=== PATIENT | male | born 2000 | race Caucasian/White ===

== ENCOUNTER → 2020-08-23 00:35 | Outpatient (CLI) | payer OTHER, SELFPAY ==
[2020-08-23 18:30] LABS: SARS-CoV-2 RNA PCR Positive
== END ==
PROVIDERS: PCP Family Medicine; Visit Provider Family Medicine
DX: U07.1 COVID-19 (principal)
CPT/HCPCS: C9803; U0003; U0005

== ENCOUNTER 2020-09-24 06:00 | Emergency (ER) | payer OTHER, SELFPAY ==
[2020-09-24 06:04] VITALS: BP 140/112; PULSE 98; RESP 20; TEMP 36.2; O2SAT 96
[2020-09-24 06:36] LABS: Basophils Absolute Auto 0.1 K/mm3 (0.0-0.1); Basophils Percent Auto 0.6 % (0.2-1.2); Eosinophils Absolute Auto 0.2 K/mm3 (0-0.3); Hematocrit 49.1 % (42.0-52.0); Hemoglobin 16.8 g/dL (14.0-18.0); Immature Granulocyte Absolute 0.04 K/mm3 (0.00-0.031); Immature Granulocyte Percent A 0.4 % (0-0.5); Lymphocytes Absolute Auto 3.38 K/mm3 (0.9-3.2); Lymphocytes Percent Auto 37.9 % (18.3-44.2); Mean Corpuscular HGB Conc 34.2 g/dl (32-36); Mean Corpuscular Hemoglobin 27.7 pg (26-34); Mean Corpuscular Volume 80.9 fl (80-100); Mean Platelet Volume 10.8 fl (7.4-10.4); Monocytes Absolute Auto 0.7 K/mm3 (0.1-0.6); Monocytes Percent Auto 8.3 % (2.6-8.5); Neutrophils Absolute Auto 4.5 K/mm3 (1.3-6.7); Neutrophils Percent Auto 50.8 % (45.5-73.1); Platelet Count Result 202 k/mm3 (150-375); Red Blood Count 6.07 M/mm3 (4.6-6.20); Red Cell Distribution Width 13.4 % (11.5-14.5); White Blood Count 8.9 K/mm3 (4.5-10.0)
[2020-09-24] MEDS: SODIUM CHLORIDE 0.9% IV 1,000 ML 999 ML IV CONT (06:40)
[2020-09-24] MEDS: ONDANSETRON INJ 4 MG/2 ML VIAL IV PUSH (06:40)
[2020-09-24 06:43] LABS: Lipase 54 U/L (23-300)
[2020-09-24 06:44] LABS: Alanine Aminotransferase 32 U/L (4-50); Albumin Level 4.5 g/dL (3.5-5.1); Alkaline Phosphatase 85 U/L (38-126); Anion Gap 8 mmol/L (8-16); Aspartate Amino Transferase 29 U/L (17-59); Bilirubin,Total 1.6 mg/dL (0.2-1.3); Blood Urea Nitrogen 15 mg/dL (9-20); Calcium 9.3 mg/dL (8.4-10.2); Carbon Dioxide 27 mmol/L (22-30); Chloride 103 mmol/L (98-107); Estimated CRCL calculation 178 ml/min; Estimated Glomerular Filt Rate > 60; Glucose 105 mg/dL (75-110); Potassium 3.8 mmol/L (3.4-5.0); Sodium 138 mmol/L (137-145)
--- NOTE | 2020-09-24 07:14 | ECG_ITS ---
Measurements Intervals [place] Rate: 63 P: 51 MT: 134 QRS: 76 QRSD: 117 T: 40 QT: 380 QTc: 389 Interpretive Statements SINUS RHYTHM WITH SINUS ARRHYTHMIA INCOMPLETE RIGHT BUNDLE BRANCH BLOCK BORDERLINE ECG Electronically Signed On 09-24-2020 8:48:27 CDT by Nile Robertson D.O.
--- NOTE | 2020-09-24 07:23 | ED.NAVMDI ---
HPI - Nausea/Vomiting/Diarrhea General Chief complaint: Nausea/Vomiting/Diarrhea Stated complaint: n/v Time Seen by Provider: 09/24/20 07:03 Source: patient and RN notes reviewed Mode of arrival: ambulatory Limitations: no limitations History of Present Illness HPI Narrative: This is a a 20 year old male with history of cannabinoid hyperemesis syndrome who presents for evaluation of nausea and vomiting. He states that he started smoking marijuana again 3 weeks ago to deal with his body pain from COVID. He started having nausea and vomiting for the past 3 days. He smokes multiple times a day every day. HE denies abdominal pain, sob , chest pain, diarrhea or fever. MD elicited complaint: nausea and vomiting Related Data Allergies Allergy/AdvReac Type Severity Reaction Status Date / Time No Known Allergies Allergy Verified 09/24/20 06:40 Review of Systems Review of Systems: All systems reviewed & are unremarkable except as noted in HPI and below PMFSH Past Medical History Medical History (Updated 09/24/20 @ 08:16 by Chata Shane MD) Cannabinoid hyperemesis syndrome Surgical History Surgical History (Updated 09/24/20 @ 07:25 by Chata Shane MD) No pertinent past surgical history Social History Social History (Updated 09/24/20 @ 07:25 by Chata Shane MD) Alcohol intake: never Substance use: current Substance use type: marijuana Exam Const: General: alert Nutritional Appearance: obese Orientation/consciousness: patient oriented x3 HENMT: Head: normocephalic and atraumatic Face and sinus: face symmetric Throat: posterior oropharynx normal, tonsils normal and uvula midline Eyes: EOM: EOMs intact bilaterally Resp: Effort & Inspection: normal respiratory effort and no retractions Auscultation: clear to auscultation bilaterally Cardio: Rate: regular rate Rhythm: regular rhythm Heart sounds: no murmurs GI: GI Palp: Yes Soft to palpation, No Tenderness to palpation present (GI) and No Guarding due to palpation present (GI) Auscultation: normal bowel sounds Skin: General skin exam: normal color Rashes: no rashes Neuro: General: patient oriented x3, moves all extremities and CN's II-XI intact bilaterally Psych: Mental Status: mental status grossly normal Affect: normal affect Course Reevaluation(s) Reevaluation #1: Patient is still having nausea and vomiting mucous. He had nurse to take IV out already. I discussed that I was going to order more medication and ask if he would stay for more medicine since he is still vomiting. HE states he wants to go home, and he already has his ride on the way. Labs are stable. He has no abdominal pain or tenderness Date: 09/24/20 Time: 08:13 Vital Signs Vital signs: Vital Signs Temperature 97.2 F L 09/24/20 06:04 Pulse Rate 98 09/24/20 06:04 Respiratory Rate 20 09/24/20 06:04 Blood Pressure 140/112 H 09/24/20 06:04 Pulse Oximetry 96 09/24/20 06:04 Temperature 97.2 F L 09/24/20 06:04 Pulse Rate 98 09/24/20 06:04 Respiratory Rate 20 09/24/20 06:04 Blood Pressure 140/112 H 09/24/20 06:04 Pulse Oximetry 96 09/24/20 06:04 MDM - Nausea/Vomiting/Diarrhea Lab Data Attestation: I reviewed the patient's lab results. Result diagrams: 09/24/20 06:27 09/24/20 06:27 Labs: Lab Results 09/24/20 09/24/20 09/24/20 Range/Units 06:27 06:27 06:27 WBC 8.9 (4.5-10.0) K/mm3 RBC 6.07 (4.6-6.20) M/mm3 Hgb 16.8 (14.0-18.0) g/dL Hct 49.1 (42.0-52.0) % MCV 80.9 (80-100) fl MCH 27.7 (26-34) pg MCHC 34.2 (32-36) g/dl RDW 13.4 (11.5-14.5) % Plt Count 202 (150-375) k/mm3 MPV 10.8 H (7.4-10.4) fl Immature Gran % (Auto) 0.4 (0-0.5) % Neut % (Auto) 50.8 (45.5-73.1) % Lymph % (Auto) 37.9 (18.3-44.2) % [place] % (Auto) 8.3 (2.6-8.5) % Eos % (Auto) 2.0 (0-4.4) % Baso % (Auto) 0.6 (0.2-1.2) % Lymph # (Aut
--- NOTE | 2020-09-24 07:25 | PC.NURSE ---
Pt sitting up on cart, rocking back and forth holding stomach, states medication has not worked and still c/o N/V. States he was in rehab for a while for marijuana use and started again. Call light within reach
[2020-09-24] MEDS: LACTATED RINGERS 1,000 ML 999 ML IV CONT (07:30)
[2020-09-24] MEDS: HALOPERIDOL LACTATE 5 MG/ML VIAL IM (07:30)
--- NOTE | 2020-09-24 08:20 | PC.NURSE ---
AMA paper signed by pt and witnessed by this RN, pt ambulatory steady gait, states his ride is here to pick him up
== END 2020-09-24 08:20 | disposition left against medical advice (07) ==
PROVIDERS: Emergency Medicine; Emergency Provider General Practice; PCP Family Medicine
DX: R11.2 Nausea with vomiting, unspecified (principal); Z86.16 Personal history of COVID-19; I45.10 Unspecified right bundle-branch block; F12.90 Cannabis use, unspecified, uncomplicated
CPT/HCPCS: 36415; 80053; 83690; 85025; 93005; 96361; 96372; 96374; 99284; J1630; J2405; J7030; J7120

== ENCOUNTER 2021-07-10 09:25 | Emergency (ER) | payer OTHER, SELFPAY ==
[2021-07-10 09:39] VITALS: BP 144/86; PULSE 73; RESP 14; TEMP 36.8; O2SAT 99
[2021-07-10 09:47] LABS: Basophils Absolute Auto 0.1 K/mm3 (0.0-0.1); Basophils Percent Auto 0.4 % (0.2-1.2); Eosinophils Percent Auto 0.1 % (0-4.4); Hematocrit 48.9 % (42.0-52.0); Hemoglobin 16.4 g/dL (14.0-18.0); Immature Granulocyte Absolute 0.05 K/mm3 (0.00-0.031); Immature Granulocyte Percent A 0.4 % (0-0.5); Lymphocytes Absolute Auto 2.76 K/mm3 (0.9-3.2); Lymphocytes Percent Auto 19.4 % (18.3-44.2); Mean Corpuscular HGB Conc 33.5 g/dl (32-36); Mean Corpuscular Hemoglobin 27.9 pg (26-34); Mean Corpuscular Volume 83.3 fl (80-100); Monocytes Absolute Auto 0.9 K/mm3 (0.1-0.6); Neutrophils Absolute Auto 10.5 K/mm3 (1.3-6.7); Neutrophils Percent Auto 73.7 % (45.5-73.1); Platelet Count Result 317 k/mm3 (150-375); Red Blood Count 5.87 M/mm3 (4.6-6.20); Red Cell Distribution Width 12.7 % (11.5-14.5); White Blood Count 14.3 K/mm3 (4.5-10.0)
[2021-07-10 09:57] LABS: Alanine Aminotransferase 39 U/L (4-50); Albumin Level 4.9 g/dL (3.5-5.1); Alkaline Phosphatase 103 U/L (38-126); Anion Gap 10 mmol/L (8-16); Aspartate Amino Transferase 40 U/L (17-59); Bilirubin,Total 1.3 mg/dL (0.2-1.3); Blood Urea Nitrogen 21 mg/dL (9-20); Calcium 9.8 mg/dL (8.4-10.2); Carbon Dioxide 27 mmol/L (22-30); Chloride 102 mmol/L (98-107); Estimated CRCL calculation 140 ml/min; Estimated Glomerular Filt Rate > 60; Glucose 133 mg/dL (65-110); Lipase 35 U/L (23-300); Potassium 3.9 mmol/L (3.4-5.0); Sodium 139 mmol/L (137-145)
[2021-07-10] MEDS: LORazepam INJ (*CRX) 2 MG/ML VIAL 1 MG IV PUSH (10:05)
[2021-07-10] MEDS: LACTATED RINGERS 1,000 ML 999 ML IV CONT (10:05)
[2021-07-10] MEDS: METOCLOPRAMIDE HCL INJ 10 MG/2 ML VIAL IV PUSH (10:07)
[2021-07-10] MEDS: diphenhydrAMINE HCl INJ 50 MG/ML VIAL 25 MG IV PUSH (10:34)
[2021-07-10 11:04] VITALS: BP 132/91; PULSE 80; RESP 14; O2SAT 97
--- NOTE | 2021-07-10 11:22 | ED.GENADULT ---
HPI - General Adult General Chief complaint: Nausea/Vomiting/Diarrhea Stated complaint: N/V 24hr Time Seen by Provider: 07/10/21 09:31 Source: patient and RN notes reviewed Mode of arrival: ambulatory Limitations: no limitations History of Present Illness HPI narrative: Patient is a 21-year-old male who presents with nausea and vomiting over the course of the last 3 days patient notes he has smoked marijuana has a history of hyperemesis related to marijuana use he also notes he has been under increasing stress patient denies any change in bowel habits rectal bleeding or melena denies hematemesis has not taken anything for his symptoms has had similar occurrences in the past and notes that this is similar to what he had experienced in the past Related Data Allergies Allergy/AdvReac Type Severity Reaction Status Date / Time No Known Allergies Allergy Verified 07/10/21 09:52 Review of Systems Review of Systems: All systems reviewed & are unremarkable except as noted in HPI and below PMFSH Past Medical History Medical History Cannabinoid hyperemesis syndrome Surgical History Surgical History No pertinent past surgical history Social History Social History Alcohol intake: never Substance use: current Substance use type: marijuana Exam Narrative: GENERAL: Well-appearing, well-nourished, uncomfortable appearing, and in no acute distress. HEAD: Normocephalic, atraumatic. EYES: PERRLA and EOMI. ENT: Nares clear, no rhinorrhea or epistaxis. Mucous membranes moist. NECK: Supple. No adenopathy or masses. CHEST: Clear to auscultation. No respiratory distress. No wheezes rales or rhonchi HEART: Regular rate and rhythm. No murmur heard. Normal peripheral pulses. ABDOMEN: Soft, tenderness of the abdomen that is generalized there is no rebound or guarding, nondistended EXTREMITIES: Normal range of motion. No edema. SKIN: Warm, dry, no rash. NEURO: No focal deficits. Alert and oriented x3. PSYCH: Normal mood and affect. Course Course Emergency Course: Patient presents to emergency department with hyperemesis GI discomfort he was medicated feeling much better at this time repeat exams of the abdomen are nontender he feels comfortable for discharge home he is hemodynamically stable ABCs and vital signs intact and stable leukocytosis likely attributed to stress reaction he is afebrile without emesis and feels comfortable with discharge home with outpatient follow-up with his Vital Signs Vital signs: Vital Signs Temperature 98.3 F 07/10/21 09:39 Pulse Rate 73 07/10/21 09:39 Respiratory Rate 14 07/10/21 09:39 Blood Pressure 144/86 H 07/10/21 09:39 Pulse Oximetry 99 07/10/21 09:39 Temperature 98.3 F 07/10/21 09:39 Pulse Rate 80 07/10/21 11:04 Respiratory Rate 14 07/10/21 11:04 Blood Pressure 132/91 H 07/10/21 11:04 Pulse Oximetry 97 07/10/21 11:04 Medical Decision Making MDM Narrative Medical decision making narrative: Patient with symptoms likely consistent with hyperemesis secondary to marijuana use and stress he had improvement with medications and therapies feels comfortable with discharge home given reason for return afebrile nontoxic appearing nondistressed no sign or symptoms to suggest it is cardiopulmonary related he has no urinary symptoms he denies any relationship to food has not had any diarrhea or constipation. Patient felt appropriate for outpatient reevaluation with gastroenterology Vital Signs Vital Signs: Vital Signs Temperature 98.3 F 07/10/21 09:39 Pulse Rate 73 07/10/21 09:39 Respiratory Rate 14 07/10/21 09:39 Blood Pressure 144/86 H 07/10/21 09:39 Pulse Oximetry 99 07/10/21 09:39 Temperature 98.3 F 07/10/21 09:39 Pulse Rate 80 07/10/21 11:04 Respiratory Rate
--- NOTE | 2021-07-10 12:53 | PC.NURSE ---
Patient refused discharge vital signs .
== END 2021-07-10 12:57 | disposition home or self-care (01) ==
PROVIDERS: Emergency Provider Emergency Medicine; PCP Family Medicine
DX: R10.9 Unspecified abdominal pain (principal)
CPT/HCPCS: 36415; 80053; 83690; 85025; 96361; 96374; 96375; 99284; J1200; J2060; J2765; J7120

== ENCOUNTER 2021-09-23 19:59 | Emergency (ER) | payer OTHER, SELFPAY ==
[2021-09-23 20:08] VITALS: BP 151/75; PULSE 106; RESP 16; TEMP 36.8; O2SAT 98
[2021-09-23 20:32] LABS: Alanine Aminotransferase 27 U/L (4-50); Albumin Level 4.6 g/dL (3.5-5.1); Alkaline Phosphatase 95 U/L (38-126); Anion Gap 9 mmol/L (8-16); Aspartate Amino Transferase 31 U/L (17-59); Blood Urea Nitrogen 18 mg/dL (9-20); Calcium 9.3 mg/dL (8.4-10.2); Carbon Dioxide 27 mmol/L (22-30); Chloride 102 mmol/L (98-107); Estimated CRCL calculation 206 ml/min; Estimated Glomerular Filt Rate > 60; Glucose 112 mg/dL (65-110); Lipase 44 U/L (23-300); Potassium 3.6 mmol/L (3.4-5.0); Sodium 138 mmol/L (137-145)
--- NOTE | 2021-09-23 21:10 | ED.NAVMDI ---
HPI - Nausea/Vomiting/Diarrhea General Chief complaint: Nausea/Vomiting/Diarrhea Stated complaint: nausea vomitting Time Seen by Provider: 09/23/21 20:39 Source: patient History of Present Illness HPI Narrative: Patient presents with nausea and vomiting for the past 2 days. Reports his symptoms are not getting better is having hard time keeping anything down so he came to ER for evaluation. Ports some epigastric pain that is associated with his emesis denies any diarrhea or fevers denies any known sick contacts recent antibiotic. Frequent history of recurrent hyperemesis syndrome but is drastically cut back on his use. Denies any bloody emesis Related Data Allergies Allergy/AdvReac Type Severity Reaction Status Date / Time No Known Allergies Allergy Verified 09/24/21 08:11 Review of Systems Review of Systems: CONSTITUTIONAL: Denies fever, chills, or sweats. EYES: Denies visual changes, redness, or discharge. ENT: Denies rhinorrhea, congestion, sore throat, or otalgia. CARDIOVASCULAR: Denies chest pain, palpitations, or edema. RESPIRATORY: Denies cough or dyspnea. GASTROINTESTINAL: Reports nausea vomiting abdominal pain GENITOURINARY: Denies dysuria or hematuria. SKIN: Denies rash or itching. MUSCULOSKELETAL: Denies back pain, joint pain, or myalgia. NEUROLOGIC: Denies headache, numbness, dizziness, or weakness. PSYCHIATRIC: Denies anxiety or depression. All systems reviewed & are unremarkable except as noted in HPI and below PMFSH Past Medical History Medical History Cannabinoid hyperemesis syndrome Surgical History Surgical History No pertinent past surgical history Social History Social History Alcohol intake: never Substance use: current Substance use type: marijuana Exam Narrative: GENERAL: Well-appearing, well-nourished, and in no acute distress. HEAD: Normocephalic, atraumatic. EYES: PERRLA and EOMI. ENT: Nares clear, no rhinorrhea or epistaxis. Mucous membranes moist. NECK: Supple. No masses. No JVD ABDOMEN: Minimal pain with deep palpation epigastric area soft, nondistended EXTREMITIES: Normal range of motion. No edema. SKIN: Warm, dry, no rash. NEURO: No focal deficits. Alert and oriented x3. PSYCH: Normal mood and affect. Course Reevaluation(s) Reevaluation #1: Patient reports feeling improved results and plan with patient. Patient is comfortable outpatient plan. Date: 09/23/21 Time: 21:51 Vital Signs Vital signs: Vital Signs Temperature 36.8 C 09/23/21 20:08 Pulse Rate 106 H 09/23/21 20:08 Respiratory Rate 16 09/23/21 20:08 Blood Pressure 151/75 H 09/23/21 20:08 Pulse Oximetry 98 09/23/21 20:08 Temperature 36.8 C 09/23/21 20:08 Pulse Rate 73 09/23/21 22:00 Respiratory Rate 14 09/23/21 22:00 Blood Pressure 121/73 09/23/21 22:00 Pulse Oximetry 99 09/23/21 22:00 MDM - Nausea/Vomiting/Diarrhea MDM Narrative Medical decision making narrative: H&P as above, vss, pt looks clinically well, exam with nonacute abdomen, labs with leukocytosis otherwise clinically unremarkable, additional labs/img considered, symptomatic relief available as needed, on reevaluation pt continues to looks clinically well. Suspect viral process, dns severe sepsis, severe dehydration, appendicitis, bowel obstruction, perforation. plan to tx/monitor as op w/ pcm f/u findings/plan discussed with pt, pt agree/comfortable with plan, return precautions given Lab Data Result diagrams: 09/23/21 21:11 09/23/21 20:17 Labs: Lab Results 09/23/21 09/23/21 09/23/21 Range/Units 20:17 21:11 21:16 WBC 15.3 H (4.5-10.0) K/mm3 RBC 5.47 (4.6-6.20) M/mm3 Hgb 15.3 (14.0-18.0) g/dL Hct 45.7 (42.0-52.0) % MCV 83.5 (80-100) fl MCH 28.0 (26-34) pg MCHC 33.5 (32-36) g/dl
[2021-09-23] MEDS: SODIUM CHLORIDE 0.9% IV 1,000 ML 999 ML IV CONT (21:11)
[2021-09-23] MEDS: ONDANSETRON INJ 4 MG/2 ML VIAL IV PUSH (21:11)
--- NOTE | 2021-09-23 21:14 | PC.NURSE ---
Pt ambulated to bathroom with steady gait
[2021-09-23 21:16] VITALS: BP 128/77; PULSE 71; RESP 16; O2SAT 98
[2021-09-23 21:16] LABS: Basophils Percent Auto 0.3 % (0.2-1.2); Eosinophils Percent Auto 0.1 % (0-4.4); Hematocrit 45.7 % (42.0-52.0); Hemoglobin 15.3 g/dL (14.0-18.0); Immature Granulocyte Absolute 0.05 K/mm3 (0.00-0.031); Immature Granulocyte Percent A 0.3 % (0-0.5); Lymphocytes Absolute Auto 2.83 K/mm3 (0.9-3.2); Lymphocytes Percent Auto 18.5 % (18.3-44.2); Mean Corpuscular HGB Conc 33.5 g/dl (32-36); Mean Corpuscular Volume 83.5 fl (80-100); Mean Platelet Volume 10.7 fl (7.4-10.4); Monocytes Absolute Auto 1.3 K/mm3 (0.1-0.6); Monocytes Percent Auto 8.2 % (2.6-8.5); Neutrophils Absolute Auto 11.1 K/mm3 (1.3-6.7); Neutrophils Percent Auto 72.6 % (45.5-73.1); Platelet Count Result 285 k/mm3 (150-375); Red Blood Count 5.47 M/mm3 (4.6-6.20); White Blood Count 15.3 K/mm3 (4.5-10.0)
[2021-09-23 21:29] LABS: Add Urine Microscopic? YES; Appearance Urine Clear (Clear); Bilirubin Urine Negative (Negative); Blood Urine 1+ (Negative); Color Urine Yellow (Yellow); Glucose Urine UA Negative (Negative); Ketones Urine Trace mg/dL (Negative); Leukocyte Esterase Ur Negative LEU/UL (Negative); Mucus Urine Few /lpf; Nitrate Urine Negative (Negative); Protein Urine Negative (Negative); RBC Urine 0-2 /hpf (0-2); Specific Grav Ur 1.027 (1.001-1.035); Squamous Epithelial Cell Urine Rare /hpf (Few); Urobilinogen Urine Negative mg/dL (<2.0); WBC Urine 0-3 /hpf
[2021-09-23 21:43] VITALS: BP 132/65; PULSE 56
[2021-09-23 21:44] VITALS: BP 120/81; PULSE 71
[2021-09-23 21:46] VITALS: BP 121/76; PULSE 73
[2021-09-23 22:00] VITALS: BP 121/73; PULSE 73; RESP 14; O2SAT 99
== END 2021-09-23 22:00 | disposition home or self-care (01) ==
PROVIDERS: Emergency Provider Emergency Medicine; PCP Family Medicine
DX: R11.2 Nausea with vomiting, unspecified (principal)
CPT/HCPCS: 36415; 80053; 81001; 83690; 85025; 96361; 96374; 99284; J2405; J7030

== ENCOUNTER 2021-09-24 08:01 | Emergency (ER) | payer OTHER, SELFPAY ==
[2021-09-24 08:08] VITALS: BP 152/118; PULSE 98; RESP 18; TEMP 36.5; O2SAT 98
[2021-09-24 08:21] VITALS: BP 119/92; PULSE 79; RESP 20; O2SAT 98
[2021-09-24] MEDS: SODIUM CHLORIDE 0.9% IV 1,000 ML 999 ML IV CONT (08:33)
[2021-09-24] MEDS: ONDANSETRON INJ 4 MG/2 ML VIAL IV PUSH (08:34)
--- NOTE | 2021-09-24 09:31 | ED.GENADULT ---
HPI - General Adult General Chief complaint: Nausea/Vomiting/Diarrhea Stated complaint: Vomiting, Seen Yesterday Time Seen by Provider: 09/24/21 08:42 Source: patient, RN notes reviewed and old records reviewed Mode of arrival: ambulatory Limitations: no limitations History of Present Illness HPI narrative: 21-year-old male returned to the emergency department for evaluation of persistent epigastric pain with associated nausea and vomiting. Patient was evaluated in the emergency department last night and had a normal work-up including labs. Patient did feel improved with treatment in the ED. Patient was prescribed Zofran for home. Patient has not yet had the opportunity to fill that medication. Patient states when he woke up he was having persistent nausea and proceeded to the emerge for evaluation. Patient does report some epigastric pain. Patient states that he had used THC almost daily but states he has decreased his use. Patient states for the last 5 days he has had no THC use. Denies any previous abdominal surgical history. Related Data Allergies Allergy/AdvReac Type Severity Reaction Status Date / Time No Known Allergies Allergy Verified 09/24/21 08:11 Review of Systems Review of Systems: CONSTITUTIONAL: Denies fever, chills, or sweats. EYES: Denies visual changes, redness, or discharge. ENT: Denies rhinorrhea, congestion, sore throat, or otalgia. CARDIOVASCULAR: Denies chest pain, palpitations, or edema. RESPIRATORY: Denies cough or dyspnea. GASTROINTESTINAL: See HPI GENITOURINARY: Denies dysuria or hematuria. SKIN: Denies rash or itching. MUSCULOSKELETAL: Denies back pain, joint pain, or myalgia. NEUROLOGIC: Denies headache, numbness, or weakness. PMFSH Past Medical History Medical History Cannabinoid hyperemesis syndrome Surgical History Surgical History No pertinent past surgical history Social History Social History Alcohol intake: never Substance use: current Substance use type: marijuana Exam Narrative: APPEARANCE: Well appearing, no pain, no distress, well-nourished. HEAD: normocephalic, atraumatic. EYES: PERRLA/EOMI, conjunctivae clear. NECK: Supple. No adenopathy, no masses. RESPIRATORY: Airway patent, respirations nonlabored. Clear to auscultation bilaterally, no rales, rhonchi, wheezing. CARDIOVASCULAR: Regular rate and rhythm without murmurs rubs or gallops. ABDOMINAL: Soft nondistended normal bowel sounds. Some epigastric tenderness to palpation. No rebound or guarding. Benign nonsurgical abdomen. MUSCULOSKELETAL: Moves all extremities. Strength/ROM intact, No edema, No calf tenderness. NEURO: Alert. Cranial nerves II through XII intact. Grossly intact SKIN: Warm, dry. Normal Color Course Course Emergency Course: Patient felt improved with treatment. Patient was updated on the results of his labs. Vital Signs Vital signs: Vital Signs Temperature 97.7 F 09/24/21 08:08 Pulse Rate 98 09/24/21 08:08 Respiratory Rate 18 09/24/21 08:08 Blood Pressure 152/118 H 09/24/21 08:08 Pulse Oximetry 98 09/24/21 08:08 Temperature 97.7 F 09/24/21 08:08 Pulse Rate 82 09/24/21 10:20 Respiratory Rate 14 09/24/21 10:20 Blood Pressure 122/89 09/24/21 10:20 Pulse Oximetry 99 09/24/21 10:20 Medical Decision Making Vital Signs Vital Signs: Vital Signs Temperature 97.7 F 09/24/21 08:08 Pulse Rate 98 09/24/21 08:08 Respiratory Rate 18 09/24/21 08:08 Blood Pressure 152/118 H 09/24/21 08:08 Pulse Oximetry 98 09/24/21 08:08 Temperature 97.7 F 09/24/21 08:08 Pulse Rate 82 09/24/21 10:20 Respiratory Rate 14 09/24/21 10:20 Blood Pressure 122/89 09/24/21 10:20 Pulse Oximetry 99 09/24/21 10:20 Lab Data Lab results reviewed: Yes I reviewed the patient's lab results.
[2021-09-24] MEDS: METOCLOPRAMIDE HCL INJ 10 MG/2 ML VIAL IV PUSH (09:44)
[2021-09-24 09:58] LABS: Basophils Absolute Auto 0.1 K/mm3 (0.0-0.1); Basophils Percent Auto 0.4 % (0.2-1.2); Eosinophils Absolute Auto 0.1 K/mm3 (0-0.3); Eosinophils Percent Auto 0.4 % (0-4.4); Hematocrit 44.7 % (42.0-52.0); Hemoglobin 14.4 g/dL (14.0-18.0); Immature Granulocyte Absolute 0.07 K/mm3 (0.00-0.031); Immature Granulocyte Percent A 0.5 % (0-0.5); Lymphocytes Absolute Auto 2.13 K/mm3 (0.9-3.2); Lymphocytes Percent Auto 15.3 % (18.3-44.2); Mean Corpuscular HGB Conc 32.2 g/dl (32-36); Mean Corpuscular Hemoglobin 28.1 pg (26-34); Mean Corpuscular Volume 87.1 fl (80-100); Mean Platelet Volume 10.9 fl (7.4-10.4); Monocytes Absolute Auto 1.2 K/mm3 (0.1-0.6); Monocytes Percent Auto 8.3 % (2.6-8.5); Neutrophils Absolute Auto 10.5 K/mm3 (1.3-6.7); Neutrophils Percent Auto 75.1 % (45.5-73.1); Platelet Count Result 242 k/mm3 (150-375); Red Blood Count 5.13 M/mm3 (4.6-6.20); Red Cell Distribution Width 12.9 % (11.5-14.5); White Blood Count 13.9 K/mm3 (4.5-10.0)
[2021-09-24 10:04] LABS: Alanine Aminotransferase 23 U/L (4-50); Alkaline Phosphatase 75 U/L (38-126); Anion Gap 5 mmol/L (8-16); Aspartate Amino Transferase 27 U/L (17-59); Bilirubin,Total 0.8 mg/dL (0.2-1.3); Blood Urea Nitrogen 15 mg/dL (9-20); Calcium 8.7 mg/dL (8.4-10.2); Carbon Dioxide 30 mmol/L (22-30); Chloride 104 mmol/L (98-107); Estimated CRCL calculation 192 ml/min; Estimated Glomerular Filt Rate > 60; Glucose 112 mg/dL (65-110); Potassium 3.8 mmol/L (3.4-5.0); Sodium 139 mmol/L (137-145)
[2021-09-24 10:20] VITALS: BP 122/89; PULSE 82; RESP 14; O2SAT 99
== END 2021-09-24 10:22 | disposition home or self-care (01) ==
PROVIDERS: Emergency Provider Emergency Medicine; PCP Family Medicine
DX: R11.2 Nausea with vomiting, unspecified (principal)
CPT/HCPCS: 36415; 80053; 85025; 95864; 96361; 96374; 96375; 99284; J2405; J2765; J7030

== ENCOUNTER 2021-10-29 08:52 | Emergency (ER) | payer OTHER, SELFPAY ==
[2021-10-29 08:56] VITALS: BP 122/72; PULSE 73; RESP 20; TEMP 36.4; O2SAT 97
--- NOTE | 2021-10-29 09:10 | ED.NAVMDI ---
HPI - Nausea/Vomiting/Diarrhea General Chief complaint: Nausea/Vomiting/Diarrhea Stated complaint: N/V Time Seen by Provider: 10/29/21 09:03 Source: patient Mode of arrival: ambulatory Limitations: no limitations History of Present Illness HPI Narrative: 21-year-old male presents today with complaints of nausea and vomiting that started yesterday. Patient has been seen here multiple times for the same reason. Patient does smoke marijuana on a daily basis since he quit 3 days ago. Patient denies abdominal pain, diarrhea, fever, body aches, chills, sore throat, or sick contacts. Patient has Zofran at home was working but stopped working yesterday. Related Data Allergies Allergy/AdvReac Type Severity Reaction Status Date / Time No Known Allergies Allergy Verified 10/29/21 09:07 Review of Systems Review of Systems: CONSTITUTIONAL: Denies fever, chills, or sweats. EYES: Denies visual changes, redness, or discharge. ENT: Denies rhinorrhea, congestion, sore throat, or otalgia. CARDIOVASCULAR: Denies chest pain, palpitations, or edema. RESPIRATORY: Denies cough or dyspnea. GASTROINTESTINAL: Nausea with vomiting. Denies abdominal pain or diarrhea. GENITOURINARY: Denies dysuria or hematuria. SKIN: Denies rash or itching. MUSCULOSKELETAL: Denies back pain, joint pain, or myalgia. NEUROLOGIC: Denies headache, numbness, dizziness, or weakness. PSYCHIATRIC: Denies anxiety or depression. PMFSH Past Medical History Medical History Cannabinoid hyperemesis syndrome Surgical History Surgical History No pertinent past surgical history Social History Social History Alcohol intake: never Substance use: current Substance use type: marijuana Exam Narrative: GENERAL: Well-appearing, well-nourished, and in no acute distress. HEAD: Normocephalic, atraumatic. EYES: PERRLA and EOMI. NECK: Supple. No adenopathy or masses. No carotid bruits or JVD CHEST: Clear to auscultation. No respiratory distress. No wheezes rales or rhonchi HEART: Regular rate and rhythm. No murmur heard. Normal peripheral pulses. ABDOMEN: Soft, nontender, nondistended, normal active bowel sounds. EXTREMITIES: Normal range of motion. No edema. SKIN: Warm, dry, no rash. NEURO: No focal deficits. Alert and oriented x3. PSYCH: Normal mood and affect. Course Course Emergency Course: Patien feeling better after IVF, reglan, benadryl, and haldol. Discharged home. Instructed to cease all THC usage and follow up with primary if symptoms do not resolve. Vital Signs Vital signs: Vital Signs Temperature 36.4 C 10/29/21 08:56 Pulse Rate 73 10/29/21 08:56 Respiratory Rate 20 10/29/21 08:56 Blood Pressure 122/72 10/29/21 08:56 Pulse Oximetry 97 10/29/21 08:56 Oxygen Delivery Room Air 10/29/21 08:56 Temperature 36.4 C 10/29/21 08:56 Pulse Rate 90 10/29/21 11:06 Respiratory Rate 17 10/29/21 11:06 Blood Pressure 117/72 10/29/21 11:06 Pulse Oximetry 98 10/29/21 11:06 Oxygen Delivery Room Air 10/29/21 08:56 MDM - Nausea/Vomiting/Diarrhea MDM Narrative Medical decision making narrative: 21-year-old male HPI as noted. Patient with history of cannabis usage daily stopped 3 days ago. Patient seen here for similar symptoms and diagnosed with cannabis hyperemesis syndrome. Unlikely nausea and vomiting are due to any other issues besides cannabis usage. Patient without any other complaints like fever, diarrhea, or abdominal pain at this time. White count 12.8, hemoglobin 15.5, sodium fluid 40, potassium three-point AST 27, ALT 34, alk phos 96, lipase 37. Differential Diagnosis Differential diagnosis: Likely gastroenteritis and other (cannabis hyperemisis syndrome) Lab Data Result diagrams: 10/29/21 09:27 10/29/21 09:27 Labs: Lab
[2021-10-29] MEDS: SODIUM CHLORIDE 0.9% IV 1,000 ML 999 ML IV CONT (09:31)
[2021-10-29] MEDS: diphenhydrAMINE HCl INJ 50 MG/ML VIAL 25 MG IV PUSH (09:32)
[2021-10-29] MEDS: METOCLOPRAMIDE HCL INJ 10 MG/2 ML VIAL IV PUSH (09:32)
[2021-10-29 09:34] LABS: Basophils Percent Auto 0.3 % (0.2-1.2); Eosinophils Absolute Auto 0.1 K/mm3 (0-0.3); Hematocrit 47.4 % (42.0-52.0); Hemoglobin 15.5 g/dL (14.0-18.0); Immature Granulocyte Absolute 0.07 K/mm3 (0.00-0.031); Immature Granulocyte Percent A 0.5 % (0-0.5); Lymphocytes Absolute Auto 1.93 K/mm3 (0.9-3.2); Mean Corpuscular HGB Conc 32.7 g/dl (32-36); Mean Corpuscular Hemoglobin 27.8 pg (26-34); Mean Corpuscular Volume 84.9 fl (80-100); Mean Platelet Volume 10.4 fl (7.4-10.4); Monocytes Absolute Auto 0.7 K/mm3 (0.1-0.6); Monocytes Percent Auto 5.6 % (2.6-8.5); Neutrophils Absolute Auto 9.9 K/mm3 (1.3-6.7); Neutrophils Percent Auto 77.6 % (45.5-73.1); Platelet Count Result 231 k/mm3 (150-375); Red Blood Count 5.58 M/mm3 (4.6-6.20); Red Cell Distribution Width 13.1 % (11.5-14.5); White Blood Count 12.8 K/mm3 (4.5-10.0)
[2021-10-29 09:39] VITALS: BP 108/87; PULSE 100; RESP 18; O2SAT 99
[2021-10-29 09:40] LABS: Alanine Aminotransferase 34 U/L (6-50); Albumin Level 4.6 g/dL (3.5-5.1); Alkaline Phosphatase 96 U/L (38-126); Anion Gap 6 mmol/L (8-16); Aspartate Amino Transferase 27 U/L (17-59); Bilirubin,Total 1.1 mg/dL (0.2-1.3); Blood Urea Nitrogen 14 mg/dL (9-20); Calcium 9.3 mg/dL (8.4-10.2); Carbon Dioxide 26 mmol/L (22-30); Chloride 108 mmol/L (98-107); Estimated CRCL calculation 187 ml/min; Estimated Glomerular Filt Rate > 60; Glucose 130 mg/dL (65-110); Lipase 37 U/L (23-300); Potassium 3.9 mmol/L (3.4-5.0); Sodium 140 mmol/L (137-145)
[2021-10-29] MEDS: HALOPERIDOL LACTATE 5 MG/ML VIAL IM (10:09)
[2021-10-29 11:06] VITALS: BP 117/72; PULSE 90; RESP 17; O2SAT 98
== END 2021-10-29 11:12 | disposition home or self-care (01) ==
PROVIDERS: Emergency Provider Nurse Practitioner Family; PCP Family Medicine
DX: R11.2 Nausea with vomiting, unspecified (principal); F12.90 Cannabis use, unspecified, uncomplicated
CPT/HCPCS: 36415; 80053; 83690; 85025; 96361; 96372; 96374; 96375; 99284; J1200; J1630; J2765; J7030

== ENCOUNTER 2021-11-09 09:04 | Emergency (ER) | payer OTHER, SELFPAY ==
[2021-11-09 09:05] VITALS: BP 119/84; PULSE 71; RESP 16; TEMP 36.7; O2SAT 98
[2021-11-09 09:35] LABS: Basophils Percent Auto 0.3 % (0.2-1.2); Eosinophils Absolute Auto 0.3 K/mm3 (0-0.3); Eosinophils Percent Auto 2.7 % (0-4.4); Hemoglobin 15.5 g/dL (14.0-18.0); Immature Granulocyte Absolute 0.07 K/mm3 (0.00-0.031); Immature Granulocyte Percent A 0.6 % (0-0.5); Lymphocytes Absolute Auto 2.05 K/mm3 (0.9-3.2); Lymphocytes Percent Auto 16.3 % (18.3-44.2); Mean Corpuscular HGB Conc 32.3 g/dl (32-36); Mean Corpuscular Hemoglobin 27.7 pg (26-34); Mean Corpuscular Volume 85.9 fl (80-100); Mean Platelet Volume 10.2 fl (7.4-10.4); Monocytes Absolute Auto 0.6 K/mm3 (0.1-0.6); Monocytes Percent Auto 4.5 % (2.6-8.5); Neutrophils Absolute Auto 9.5 K/mm3 (1.3-6.7); Neutrophils Percent Auto 75.6 % (45.5-73.1); Platelet Count Result 283 k/mm3 (150-375); Red Blood Count 5.59 M/mm3 (4.6-6.20); Red Cell Distribution Width 13.1 % (11.5-14.5); White Blood Count 12.6 K/mm3 (4.5-10.0)
[2021-11-09 09:38] LABS: Appearance Urine Clear (Clear); Bilirubin Urine 1+ (Negative); Blood Urine Negative (Negative); Glucose Urine UA Negative (Negative); Ketones Urine Trace mg/dL (Negative); Leukocyte Esterase Ur Negative LEU/UL (Negative); Nitrate Urine Negative (Negative); Protein Urine Negative (Negative); Specific Grav Ur 1.025 (1.001-1.035); Urobilinogen Urine 0.2 mg/dL (<2.0)
[2021-11-09 09:41] LABS: Mucus Urine Moderate /lpf; RBC Urine 0-2 /hpf (0-2)
[2021-11-09 09:43] LABS: Add Urine Microscopic? YES; Color Urine Dark Yellow (Yellow)
[2021-11-09 09:47] LABS: Alanine Aminotransferase 36 U/L (6-50); Albumin Level 4.4 g/dL (3.5-5.1); Alkaline Phosphatase 108 U/L (38-126); Anion Gap 8 mmol/L (8-16); Aspartate Amino Transferase 27 U/L (17-59); Bilirubin,Total 0.7 mg/dL (0.2-1.3); Blood Urea Nitrogen 12 mg/dL (9-20); Carbon Dioxide 27 mmol/L (22-30); Chloride 105 mmol/L (98-107); Estimated CRCL calculation 184 ml/min; Estimated Glomerular Filt Rate > 60; Glucose 114 mg/dL (65-110); Lipase 38 U/L (23-300); Potassium 3.7 mmol/L (3.4-5.0); Sodium 140 mmol/L (137-145)
[2021-11-09] MEDS: ONDANSETRON INJ 4 MG/2 ML VIAL IV PUSH (09:51)
[2021-11-09] MEDS: LACTATED RINGERS 1,000 ML 999 ML IV CONT (09:51)
[2021-11-09] MEDS: PANTOPRAZOLE SODIUM IV 40 MG VIAL IV PUSH (09:51)
--- NOTE | 2021-11-09 09:51 | ED.NAVMDI ---
HPI - Nausea/Vomiting/Diarrhea General Chief complaint: Nausea/Vomiting/Diarrhea Stated complaint: N/V/D X1D Time Seen by Provider: 11/09/21 09:15 Source: patient and RN notes reviewed Mode of arrival: ambulatory Limitations: no limitations History of Present Illness HPI Narrative: This is a 21 year old male with history of GERD and cannabis hyperemesis syndrome who presents for evaluation of nausea and vomiting. Patient states he woke up yesterday morning with nausea and vomiting. He describes bilious emesis multiple times yesterday. He has nausea today but he has not had any emesis. He reports intermittent epigastric cramping abdominal pain since yesterday. He denies any diarrhea and his last bowel movement was yesterday. He denies fever or chills. He reports having upper endoscopy within 1 year, and it showed esophagitis and gastritis. He reports he did not take PPI as they were prescribed. HE denies chest pain, cough, sob, fever, chills or congestion. HE denies any sick contacts. Related Data Allergies Allergy/AdvReac Type Severity Reaction Status Date / Time No Known Allergies Allergy Verified 11/09/21 09:09 Review of Systems Review of Systems: All systems reviewed & are unremarkable except as noted in HPI and below Constitutional: Constitutional: Denies chills, Denies fatigue and Denies fever(s) Cardiovascular: Cardiovascular: Denies chest pain Respiratory: Respiratory: Denies chest congestion and Denies cough Gastrointestinal: Gastrointestinal: Reports abdominal pain, Reports nausea and Reports vomiting Genitourinary: Genitourinary: Denies hematuria and Denies oliguria Musculoskeletal: Musculoskeletal: Denies back pain and Denies arthralgias PMFSH Past Medical History Medical History Cannabinoid hyperemesis syndrome Surgical History Surgical History No pertinent past surgical history Social History Social History Alcohol intake: never Substance use: current Substance use type: marijuana Exam Const: General: no acute distress and alert Nutritional Appearance: well nourished Orientation/consciousness: patient oriented x3 HENMT: Head: normal to inspection Face and sinus: normal facial exam Eyes: Pupils: Equal, round and reactive pupils present EOM: EOMs intact bilaterally Chest: Chest palpation & inspection: normal inspection of the chest Resp: Effort & Inspection: normal respiratory effort Auscultation: clear to auscultation bilaterally Cardio: Rate: regular rate Rhythm: regular rhythm Heart sounds: no murmurs GI: GI Palp: Yes Soft to palpation, No Tenderness to palpation present (GI), No Guarding due to palpation present (GI) and No Rigid due to palpation Auscultation: normal bowel sounds Back/Spine/Pelvis: Back: no CVA tenderness Skin: General skin exam: normal color Rashes: no rashes Wounds: no wounds Neuro: General: patient oriented x3, moves all extremities and CN's II-XI intact bilaterally Psych: Mental Status: mental status grossly normal Affect: normal affect Attitude: cooperative Course Reevaluation(s) Reevaluation #1: Patient states he feels better and he ready to go home. He has mild leukocytosis. No TTP RLQ to be concerned about appendicitis or RUQ Date: 11/09/21 Time: 11:02 Vital Signs Vital signs: Vital Signs Temperature 98.1 F 11/09/21 09:05 Pulse Rate 71 11/09/21 09:05 Respiratory Rate 16 11/09/21 09:05 Blood Pressure 119/84 11/09/21 09:05 Pulse Oximetry 98 11/09/21 09:05 Oxygen Delivery Room Air 11/09/21 09:05 Temperature 98.1 F 11/09/21 09:05 Pulse Rate 96 11/09/21 11:28 Respiratory Rate 18 11/09/21 11:28 Blood Pressure 147/97 H 11/09/21 11:28 Pulse Oximetry 99 11/09/21 11:28 Oxygen Delivery Room Air 11/09/21 09:05 MDM - Nause
[2021-11-09 11:28] VITALS: BP 147/97; PULSE 96; RESP 18; O2SAT 99
== END 2021-11-09 11:30 | disposition home or self-care (01) ==
PROVIDERS: Emergency Provider General Practice; PCP Family Medicine
DX: R11.2 Nausea with vomiting, unspecified (principal); K21.9 Gastro-esophageal reflux disease without esophagitis
CPT/HCPCS: 36415; 80053; 81001; 83690; 85025; 96361; 96374; 96375; 99284; C9113; J2405; J7120

== ENCOUNTER 2022-01-23 07:51 | Emergency (ER) | payer OTHER, SELFPAY ==
[2022-01-23 08:05] VITALS: BP 147/97; PULSE 125; RESP 18; TEMP 36.6; O2SAT 100
[2022-01-23 08:32] LABS: Basophils Absolute Auto 0.1 K/mm3 (0.0-0.1); Basophils Percent Auto 0.4 % (0.2-1.2); Eosinophils Absolute Auto 0.2 K/mm3 (0-0.3); Eosinophils Percent Auto 1.8 % (0-4.4); Hematocrit 47.4 % (42.0-52.0); Hemoglobin 15.7 g/dL (14.0-18.0); Immature Granulocyte Absolute 0.04 K/mm3 (0.00-0.031); Immature Granulocyte Percent A 0.4 % (0-0.5); Lymphocytes Absolute Auto 2.33 K/mm3 (0.9-3.2); Lymphocytes Percent Auto 20.5 % (18.3-44.2); Mean Corpuscular HGB Conc 33.1 g/dl (32-36); Mean Corpuscular Hemoglobin 27.8 pg (26-34); Mean Platelet Volume 10.8 fl (7.4-10.4); Monocytes Percent Auto 8.4 % (2.6-8.5); Neutrophils Absolute Auto 7.8 K/mm3 (1.3-6.7); Neutrophils Percent Auto 68.5 % (45.5-73.1); Platelet Count Result 210 k/mm3 (150-375); Red Blood Count 5.64 M/mm3 (4.6-6.20); Red Cell Distribution Width 13.2 % (11.5-14.5); White Blood Count 11.4 K/mm3 (4.5-10.0)
[2022-01-23 08:33] LABS: Appearance Urine Slightly Cloudy (Clear); Bilirubin Urine Negative (Negative); Blood Urine Negative (Negative); Color Urine Yellow (Yellow); Glucose Urine UA Negative (Negative); Ketones Urine Negative (Negative); Leukocyte Esterase Ur Negative LEU/UL (Negative); Nitrate Urine Negative (Negative); Protein Urine Negative (Negative); Urobilinogen Urine 0.2 mg/dL (<2.0); pH Urine 7.5 (5.0-9.0)
[2022-01-23 08:41] LABS: Amorphous Sediment Urine Few; Bacteria Urine Trace /hpf; Mucus Urine Rare /lpf; WBC Urine 0-3 /hpf
[2022-01-23 08:42] LABS: Add Urine Microscopic? YES
[2022-01-23 08:44] LABS: Alanine Aminotransferase 27 U/L (6-50); Albumin Level 4.6 g/dL (3.5-5.1); Alkaline Phosphatase 78 U/L (38-126); Anion Gap 14 mmol/L (8-16); Aspartate Amino Transferase 28 U/L (17-59); Bilirubin,Total 0.9 mg/dL (0.2-1.3); Blood Urea Nitrogen 15 mg/dL (9-20); Calcium 9.5 mg/dL (8.4-10.2); Carbon Dioxide 23 mmol/L (22-30); Chloride 102 mmol/L (98-107); Estimated CRCL calculation 208 ml/min; Estimated Glomerular Filt Rate > 60; Glucose 106 mg/dL (65-110); Lipase 51 U/L (23-300); Potassium 3.9 mmol/L (3.4-5.0); Sodium 139 mmol/L (137-145)
[2022-01-23] MEDS: SODIUM CHLORIDE 0.9% IV 1,000 ML 999 ML IV CONT ×2 (09:11→10:56)
[2022-01-23] MEDS: ONDANSETRON INJ 4 MG/2 ML VIAL IV PUSH (09:11)
--- NOTE | 2022-01-23 09:32 | ED.NAVMDI ---
HPI - Nausea/Vomiting/Diarrhea General Chief complaint: Nausea/Vomiting/Diarrhea Stated complaint: nausea Time Seen by Provider: 01/23/22 08:54 History of Present Illness HPI Narrative: 21-year-old male with a history of cannabis hyperemesis syndrome presents to the emergency room for complaints of nausea and vomiting. Patient states that he has been seen in the emergency room multiple times for the same complaint. Also reports not using marijuana for the last 3 weeks. Denies any abdominal pain or fevers. States the emesis is nonbloody and bilious. Related Data Allergies Allergy/AdvReac Type Severity Reaction Status Date / Time No Known Allergies Allergy Verified 11/09/21 09:09 Review of Systems Review of Systems: CONSTITUTIONAL: Denies fever, chills, or sweats. EYES: Denies visual changes, redness, or discharge. ENT: Denies rhinorrhea, congestion, sore throat, or otalgia. CARDIOVASCULAR: Denies chest pain, palpitations, or edema. RESPIRATORY: Denies cough or dyspnea. GASTROINTESTINAL: Reports nausea and vomiting GENITOURINARY: Denies dysuria or hematuria. SKIN: Denies rash or itching. MUSCULOSKELETAL: Denies back pain, joint pain, or myalgia. NEUROLOGIC: Denies headache, numbness, dizziness, or weakness. PSYCHIATRIC: Denies anxiety or depression. PMFSH Past Medical History Medical History Cannabinoid hyperemesis syndrome Surgical History Surgical History No pertinent past surgical history Social History Social History Alcohol intake: never Substance use: current Substance use type: marijuana Exam Narrative: GENERAL: Well-appearing, well-nourished, no physical limitations, and in no acute distress. HEAD: Normocephalic, atraumatic. EYES: Conjunctivae normal, PERRLA and EOMI. CHEST: Clear to auscultation. No respiratory distress. No wheezes rales or rhonchi. No tenderness. HEART: Regular rate and rhythm. No murmur heard. Normal peripheral pulses. ABDOMEN: Soft, nontender, nondistended, normal active bowel sounds. SKIN: Warm, dry, no rash. No noted wounds NEURO: No focal deficits. Alert and oriented x3. MAEW. CN's II-XI intact bilaterally, normal gait PSYCH: Cooperative. Tearful. Course Vital Signs Vital signs: Vital Signs Temperature 36.6 C 01/23/22 08:05 Pulse Rate 125 H 01/23/22 08:05 Respiratory Rate 18 01/23/22 08:05 Blood Pressure 147/97 H 01/23/22 08:05 Pulse Oximetry 100 01/23/22 08:05 Oxygen Delivery Room Air 01/23/22 08:05 Temperature 36.6 C 01/23/22 08:05 Pulse Rate 110 H 01/23/22 11:00 Respiratory Rate 18 01/23/22 11:00 Blood Pressure 135/88 01/23/22 11:00 Pulse Oximetry 98 01/23/22 11:00 Oxygen Delivery Room Air 01/23/22 08:05 MDM - Nausea/Vomiting/Diarrhea Lab Data Result diagrams: 01/23/22 08:18 01/23/22 08:18 Labs: Lab Results 01/23/22 01/23/22 01/23/22 Range/Units 08:18 08:18 08:18 WBC 11.4 H (4.5-10.0) K/mm3 RBC 5.64 (4.6-6.20) M/mm3 Hgb 15.7 (14.0-18.0) g/dL Hct 47.4 (42.0-52.0) % MCV 84.0 (80-100) fl MCH 27.8 (26-34) pg MCHC 33.1 (32-36) g/dl RDW 13.2 (11.5-14.5) % Plt Count 210 (150-375) k/mm3 MPV 10.8 H (7.4-10.4) fl Immature Gran % (Auto) 0.4 (0-0.5) % Neut % (Auto) 68.5 (45.5-73.1) % Lymph % (Auto) 20.5 (18.3-44.2) % [place] % (Auto) 8.4 (2.6-8.5) % Eos % (Auto) 1.8 (0-4.4) % Baso % (Auto) 0.4 (0.2-1.2) % Lymph # (Auto) 2.33 (0.9-3.2) K/mm3 [place] # (Auto) 1.0 H (0.1-0.6) K/mm3 Eos # (Auto) 0.2 (0-0.3) K/mm3 Baso # (Auto) 0.1 (0.0-0.1) K/mm3 Abs Immat Gran (auto) 0.04 H (0.00-0.031) K/mm3 Absolute Neuts (auto) 7.8 H (1.3-6.7) K/mm3 Absolute Nucleated RBC 0.0 (0.0-0.012) K/mm3 Nucleated RBC % 0.0 (0.0-0.2)
[2022-01-23 09:33] LABS: Amphetamine Screen Urine Negative (Negative); Barbiturate Screen Urine Negative (Negative); Benzodiazepines Screen Urine Negative (Negative); Cannabinoid Screen Urine Positive (Negative); Cocaine Screen Urine Negative (Negative); Methadone Screen Urine Negative (Negative); Opiate Screen Urine Negative (Negative); Phencyclidine Screen Urine Negative (Negative)
[2022-01-23] MEDS: METOCLOPRAMIDE HCL INJ 10 MG/2 ML VIAL IV PUSH (10:56)
[2022-01-23] MEDS: diphenhydrAMINE HCl INJ 50 MG/ML VIAL 25 MG IV PUSH (10:56)
[2022-01-23] MEDS: BELLADONNA ALK/PHENOB ELIX 10 ML, MAG HYDROX/ALUMINUM HYD/SIMETH 30 ML, LIDOCAINE HCL 2... PO (10:57)
[2022-01-23 11:00] VITALS: BP 135/88; PULSE 110; RESP 18; O2SAT 98
--- NOTE | 2022-01-23 11:03 | PC.NURSE ---
pt ambulating to the restroom with no difficulty
[2022-01-23 11:45] VITALS: BP 138/83; PULSE 79; RESP 20; O2SAT 100
== END 2022-01-23 11:47 | disposition home or self-care (01) ==
PROVIDERS: Emergency Medicine; Emergency Provider Nurse Practitioner Family; PCP Family Medicine
DX: R11.2 Nausea with vomiting, unspecified (principal); F12.188 Cannabis abuse with other cannabis-induced disorder
CPT/HCPCS: 36415; 80053; 80307; 81001; 83690; 85025; 96361; 96374; 96375; 99284; A9270; J1200; J2405; J2765; J7030

== ENCOUNTER 2022-06-21 10:53 | Emergency (ER) | payer OTHER, SELFPAY ==
[2022-06-21] VITALS (20 sets, daily range): BP systolic 107–155; BP diastolic 41–93; PULSE 73–108; RESP 11–20; TEMP 36.7; O2SAT 97–100
--- NOTE | ~2022-06-21 | CT_ITS ---
EXAMINATION: CT abdomen pelvis w con DATE: 06/21/2022 13:14 INDICATION: Abdominal pain TECHNIQUE: Computed tomography (CT) of the abdomen and pelvis was performed with 100 mL Omnipaque-350 intravenous contrast. Automated exposure control and iterative reconstruction technique were employe d. The dose-length product was 1525.03 mGy-cm. COMPARISON: None FINDINGS: Evaluation mildly limited by some scattered motion artifact. Lung bases are clear. Heart size is norm al. No pericardial or pleural effusion. Liver, gallbladder, spleen, pancreas, bilateral adrenal gland s and kidneys are normal. Bladder is normal. Bowels including the appendix are normal. No free intrap eritoneal gas or fluid. No pathologically enlarged abdominal or pelvic lymphadenopathy. Moderate thor acolumbar spondylosis. IMPRESSION: 1. No acute intra-abdominal/pelvic process. Reviewed, dictated and finalized at location L. [employer]
[2022-06-21 11:39] LABS: Basophils Absolute Auto 0.1 K/mm3 (0.0-0.1); Basophils Percent Auto 0.4 % (0.2-1.2); Eosinophils Absolute Auto 0.1 K/mm3 (0-0.3); Eosinophils Percent Auto 0.5 % (0-4.4); Hematocrit 49.9 % (42.0-52.0); Immature Granulocyte Absolute 0.09 K/mm3 (0.00-0.031); Immature Granulocyte Percent A 0.6 % (0-0.5); Lymphocytes Absolute Auto 1.84 K/mm3 (0.9-3.2); Mean Corpuscular HGB Conc 34.1 g/dl (32-36); Mean Corpuscular Hemoglobin 27.6 pg (26-34); Mean Corpuscular Volume 81.1 fl (80-100); Mean Platelet Volume 10.5 fl (7.4-10.4); Monocytes Absolute Auto 0.8 K/mm3 (0.1-0.6); Monocytes Percent Auto 5.3 % (2.6-8.5); Neutrophils Absolute Auto 12.5 K/mm3 (1.3-6.7); Neutrophils Percent Auto 81.2 % (45.5-73.1); Platelet Count Result 291 k/mm3 (150-375); Red Blood Count 6.15 M/mm3 (4.6-6.20); Red Cell Distribution Width 12.9 % (11.5-14.5); White Blood Count 15.4 K/mm3 (4.5-10.0)
--- NOTE | 2022-06-21 11:45 | ED.ABDPAIN ---
HPI - Abdominal Pain General Chief Complaint: Abdominal Pain Stated Complaint: abd pain Time Seen by Provider: 06/21/22 11:02 Source: RN notes reviewed History of Present Illness HPI narrative: Patient presents emergency department from home for abdominal pain. Patient states symptoms began last night. The pain is located across the upper abdomen described as aching in nature associated with numerous episodes of nausea and vomiting. States that he has had no diarrhea denies any fevers or chills chest pain or shortness of breath. States he has a history of gastric ulcers and had been on Protonix before in the past but states he is not currently on any medication at this time Related Data Allergies Allergy/AdvReac Type Severity Reaction Status Date / Time No Known Allergies Allergy Verified 11/09/21 09:09 Review of Systems Review of Systems: Gen.: Denies fevers or chills ENT: Denies congestion Respiratory: Denies shortness of breath or cough CV: Denies chest pain or palpitations GI: See HPI denies burning, urgency, frequency or hematuria Musculoskeletal: Denies back pain or muscle pain Neuro: Denies numbness, tingling, weakness or focal weakness Skin: Denies rash Except as documented, all other systems reviewed and negative [facility] Past Medical History Medical History Cannabinoid hyperemesis syndrome Surgical History Surgical History No pertinent past surgical history Social History Social History Alcohol intake: never Substance use: current Substance use type: marijuana Exam Narrative: APPEARANCE: No acute distress, nontoxic, resting in bed HEENT: Normocephalic, atraumatic, OMM RESPIRATORY: No respiratory distress, clear to auscultation bilaterally with no rhonchi wheezing or rales CARDIOVASCULAR: RRR s murmur ABDOMINAL: Soft nondistended tender palpation epigastric, right upper quadrant left upper quadrant no tenderness in right lower quadrant left lower quadrant no rebound or guarding MUSCULOSKELETAl: Moves all extremities. No clubbing, cyanosis or edema. NEURO: Awake and alert. Following commands, speech normal, no focal deficits SKIN:: Warm, dry. Normal Color PSYCHIATRIC: Normal affect/mood Course Course Emergency Course: Patient states he has a history of hyperemesis syndrome secondary to cannabis states he quit smoking 2 weeks ago states that he has been followed by GI Dr. Keller before in the past [place] Patient continue to have nausea vomiting additional medications given Patient states he is feeling better at this time. Discussed with patient admission to the hospital versus discharge home the patient states he prefer to be discharged home at this time he does not wish to stay in the hospital will refer to GI and restart on PPI Discussed with patient results of workup and diagnosis. Discussed need for follow-up with primary care, proper use of medication, and reasons to return to the emergency department. Patient understands and agrees to current treatment plan Prior to discharge patient still not given us a UA I discussed with the patient he states he does not wish to give us a UA discussed the risks and benefits with his mild elevation his white count although the patient is a history of chronic elevation of white count states he does not wish to give urine at this time and wishes to be discharged Vital Signs Vital signs: Vital Signs Temperature 98.0 F 06/21/22 11:03 Pulse Rate 98 06/21/22 11:03 Respiratory Rate 18 06/21/22 11:03 Blood Pressure 155/86 H 06/21/22 11:03 Pulse Oximetry 99 06/21/22 11:03 Oxygen Delivery Room Air 06/21/22 11:03 Temperature 98.0 F 06/21/22 11:03 Pulse Rate 89 06/21/22 16:18 Respiratory Rate 13
[2022-06-21] MEDS: ONDANSETRON INJ 4 MG/2 ML VIAL IV PUSH (11:49)
[2022-06-21] MEDS: FAMOTIDINE 20 MG/2 ML VIAL IV PUSH (11:49)
[2022-06-21] MEDS: SODIUM CHLORIDE 0.9% IV 1,000 ML 999 ML IV CONT ×2 (11:49→12:55)
[2022-06-21 11:50] LABS: Alanine Aminotransferase 40 U/L (6-50); Alkaline Phosphatase 106 U/L (38-126); Anion Gap 12 mmol/L (8-16); Aspartate Amino Transferase 31 U/L (17-59); Bilirubin,Total 1.2 mg/dL (0.2-1.3); Blood Urea Nitrogen 21 mg/dL (9-20); Calcium 9.8 mg/dL (8.4-10.2); Carbon Dioxide 22 mmol/L (22-30); Chloride 103 mmol/L (98-107); Estimated CRCL calculation 157 ml/min; Estimated Glomerular Filt Rate > 60; Glucose 167 mg/dL (65-110); Lipase 64 U/L (23-300); Potassium 4.1 mmol/L (3.4-5.0); Sodium 137 mmol/L (137-145)
[2022-06-21] MEDS: PROMETHAZINE HCL 25 MG/ML AMPUL 12.5 MG IV PUSH (12:54)
[2022-06-21] MEDS: LORazepam INJ (*CRX) 2 MG/ML VIAL 1 MG IV PUSH (14:48)
[2022-06-21] MEDS: MORPHINE SULFATE (*CRX) 4 MG/ML INJ IV PUSH (16:08)
--- NOTE | 2022-06-21 17:03 | PC.NURSE ---
PT ASKED FOR URINE SPECIMEN PRIOR TO LEAVING THE DEPT, REFUSED POLITELY
== END 2022-06-21 17:03 | disposition home or self-care (01) ==
PROVIDERS: Emergency Provider Emergency Medicine; PCP Family Medicine
DX: R11.2 Nausea with vomiting, unspecified (principal)
CPT/HCPCS: 36415; 74177; 80053; 83690; 85025; 96361; 96365; 96375; 99284; J0131; J2060; J2270; J2405; J2550; J7030; Q9967

== ENCOUNTER 2022-07-12 14:33 | Emergency (ER) | payer OTHER, SELFPAY ==
--- NOTE | ~2022-07-12 | CT_ITS ---
EXAMINATION: CT abdomen pelvis w con DATE: 07/12/2022 17:29 INDICATION: Right lower quadrant pain and vomiting TECHNIQUE: Computed tomography (CT) of the abdomen and pelvis was performed with 100 cc Omnipaque 350 intravenous contrast. The dose-length product was 2678.00 mGy-cm. Automated exposure control and ite rative reconstruction technique were employed. COMPARISON: CT dated 06/21/2022. FINDINGS: Lung bases are unremarkable. Heart size normal. No significant pleural or pericardial effus ion. No significant vascular abnormality. No lymphadenopathy. The liver, spleen, pancreas, adrenal glands and kidneys are unremarkable. Gallbladder is present. Nor mal appendix. No acute osseous abnormality. There is mild scoliosis. Ureters are normal in course and caliber. Bladder is unremarkable. IMPRESSION: 1. No acute abdominal abnormality. Reviewed, dictated and finalized at location A. [employer]
[2022-07-12 14:56] VITALS: BP 137/76; PULSE 98; RESP 20; TEMP 36.3; O2SAT 99
--- NOTE | 2022-07-12 15:40 | PC.NURSE ---
Patient refused blood work at this time and states he is going to wait until he gets to a room and gets an IV
[2022-07-12] MEDS: ONDANSETRON HCL ODT 4 MG TABLET PO (16:26)
--- NOTE | 2022-07-12 16:28 | PC.NURSE ---
pt refusing to give urine sample at this time
[2022-07-12 16:51] LABS: Basophils Percent Auto 0.3 % (0.2-1.2); Eosinophils Percent Auto 0.1 % (0-4.4); Hematocrit 47.5 % (42.0-52.0); Hemoglobin 16.2 g/dL (14.0-18.0); Immature Granulocyte Absolute 0.14 K/mm3 (0.00-0.031); Immature Granulocyte Percent A 0.9 % (0-0.5); Lymphocytes Absolute Auto 1.41 K/mm3 (0.9-3.2); Lymphocytes Percent Auto 9.3 % (18.3-44.2); Mean Corpuscular HGB Conc 34.1 g/dl (32-36); Mean Corpuscular Volume 82.2 fl (80-100); Mean Platelet Volume 9.9 fl (7.4-10.4); Monocytes Absolute Auto 0.6 K/mm3 (0.1-0.6); Monocytes Percent Auto 3.7 % (2.6-8.5); Neutrophils Absolute Auto 13.1 K/mm3 (1.3-6.7); Neutrophils Percent Auto 85.7 % (45.5-73.1); Platelet Count Result 393 k/mm3 (150-375); Red Blood Count 5.78 M/mm3 (4.6-6.20); Red Cell Distribution Width 12.5 % (11.5-14.5); White Blood Count 15.2 K/mm3 (4.5-10.0)
[2022-07-12 17:04] LABS: Alanine Aminotransferase 45 U/L (6-50); Albumin Level 4.7 g/dL (3.5-5.1); Alkaline Phosphatase 123 U/L (38-126); Anion Gap 9 mmol/L (8-16); Aspartate Amino Transferase 30 U/L (17-59); Bilirubin,Total 0.9 mg/dL (0.2-1.3); Blood Urea Nitrogen 13 mg/dL (9-20); Calcium 10.1 mg/dL (8.4-10.2); Carbon Dioxide 23 mmol/L (22-30); Chloride 105 mmol/L (98-107); Estimated CRCL calculation 173 ml/min; Estimated Glomerular Filt Rate > 60; Glucose 146 mg/dL (65-110); Lipase 39 U/L (23-300); Potassium 3.9 mmol/L (3.4-5.0); Sodium 137 mmol/L (137-145)
--- NOTE | 2022-07-12 17:16 | ED.GENADULT ---
HPI - General Adult General Chief complaint: Nausea/Vomiting/Diarrhea <Francisco J Crowell PA-C - Last Filed: 07/12/22 19:38> Stated complaint: vomiting after taking antibiotic <Francisco J Crowell PA-C - Last Filed: 07/12/22 19:38> Time Seen by Provider: 07/12/22 16:56 <Francisco J Crowell PA-C - Last Filed: 07/12/22 19:38> History of Present Illness HPI narrative: This is a 22-year-old male presents with chief complaint of N/V/D x1 day. Also notes some epigastric abdominal pain. States he started taking a Z-Lazaro last night after visiting his primary care for a sinus infection. He feels that this is what caused the vomiting to start. Multiple episodes of emesis. reports 2 loose stools today. Mom is here and states that he has been around multiple sick contacts in the last week. Patient also notes rhinorrhea, ear pain. Denies sore throat. Denies fever, chills. Denies hematemesis or bloody stools. Known history of peptic ulcers. States that his pain today is very similar. No past abdominal surgical history. <KAMILLA Marsh Last Filed: 07/12/22 19:38> Related Data Allergies/adverse reactions: Allergies Allergy/AdvReac Type Severity Reaction Status Date / Time No Known Allergies Allergy Verified 11/09/21 09:09 <Francisco J Crowell PA-C - Last Filed: 07/12/22 19:38> Review of Systems Review of Systems: CONSTITUTIONAL: Denies fever, chills, or sweats. EYES: Denies visual changes, redness, or discharge. ENT: Denies sore throat. Endorses rhinorrhea, congestion, ear pain. CARDIOVASCULAR: Denies chest pain, palpitations, or edema. RESPIRATORY: Denies cough or dyspnea. GASTROINTESTINAL: Endorses abdominal pain, nausea, vomiting, and diarrhea. GENITOURINARY: Denies dysuria or hematuria. SKIN: Denies rash or itching. MUSCULOSKELETAL: Denies back pain, joint pain, or myalgia. NEUROLOGIC: Denies headache, numbness, dizziness, or weakness. PSYCHIATRIC: Denies anxiety or depression. <Francisco J Crowell PA-C - Last Filed: 07/12/22 19:38> [facility] Past Medical History Medical History: Medical History Cannabinoid hyperemesis syndrome <Francisco J Crowell PA-C - Last Filed: 07/12/22 19:38> Surgical History Surgical History: Surgical History No pertinent past surgical history <Francisco J Crowell PA-C - Last Filed: 07/12/22 19:38> Social History Social History: Social History Alcohol intake: never Substance use: current Substance use type: marijuana <Francisco J Crowell PA-C - Last Filed: 07/12/22 19:38> Exam Narrative: GENERAL: Well-appearing, well-nourished, and in no acute distress. Ill-appearing. HEAD: Normocephalic, atraumatic. EYES: PERRLA and EOMI. ENT: Clear rhinorrhea present. Sinus tenderness in the maxillary and frontal sinuses. Mucous membranes moist. Oropharynx without tonsillar hypertrophy exudate or other lesions. Right TM is injected, left TM is clear. NECK: Supple. No adenopathy or masses. CHEST: No respiratory distress. Clear to auscultation. No wheezes rales or rhonchi HEART: Regular rate and rhythm. No murmur heard. Normal peripheral pulses. ABDOMEN: Soft, nondistended, normal active bowel sounds. Mild tenderness in the epigastrium, RUQ and RLQ. Negative peritoneal signs. Negative psoas. Negative McBurney's point. EXTREMITIES: Normal range of motion. No edema. SKIN: Warm, dry, no rash. NEURO: Alert and oriented x3. No focal deficits. PSYCH: Normal mood and affect. <KAMILLA Marsh Last Filed: 07/12/22 19:38> Course ENGINEERING DIRECTOR/PA Physician Supervision For this encounter, I have reviewed the mid-level provider documentation, treatment plan and medical decision making. I have had [id number] time with the patient. 22-year-old male presenting with nausea vomiting abdominal pain. Patient believes is due
[2022-07-12] MEDS: BELLADONNA ALK/PHENOB ELIX 10 ML, MAG HYDROX/ALUMINUM HYD/SIMETH 30 ML, LIDOCAINE HCL 2... PO (17:39)
[2022-07-12] MEDS: KETOROLAC 30 MG/ML VIAL (*BKC) IV PUSH (17:39)
[2022-07-12] MEDS: SODIUM CHLORIDE 0.9% IV 1,000 ML 999 ML IV CONT (17:40)
[2022-07-12] MEDS: ONDANSETRON INJ 4 MG/2 ML VIAL IV PUSH (18:01)
[2022-07-12 18:15] LABS: Appearance Urine Clear (Clear); Bilirubin Urine 1+ (Negative); Blood Urine Trace-intact (Negative); Color Urine Yellow (Yellow); Glucose Urine UA Negative (Negative); Ketones Urine 2+ mg/dL (Negative); Leukocyte Esterase Ur Negative LEU/UL (Negative); Nitrate Urine Negative (Negative); Protein Urine 1+ mg/dL (Negative); Urobilinogen Urine 0.2 mg/dL (<2.0)
[2022-07-12 18:20] LABS: Bacteria Urine Trace /hpf; Mucus Urine Heavy /lpf; RBC Urine 0-2 /hpf (0-2); Squamous Epithelial Cell Urine Rare /hpf (Few)
[2022-07-12 18:24] LABS: Influenza A QL RT-PCR Negative (Negative); Influenza B QL RT-PCR Negative (Negative); RSV RNA, RT-PCR Negative (Negative); SARS-CoV-2 RNA PCR Negative
[2022-07-12 18:42] VITALS: BP 148/82; PULSE 103; RESP 18; O2SAT 100
[2022-07-12 19:08] LABS: Add Urine Microscopic? YES
[2022-07-12] MEDS: PROCHLORPERAZINE EDISYLATE 10 MG/2 ML VIAL IV PUSH (19:43)
[2022-07-12 19:46] VITALS: BP 140/69; PULSE 108; RESP 18; TEMP 37.2; O2SAT 99
== END 2022-07-12 19:47 | disposition home or self-care (01) ==
PROVIDERS: Emergency Medicine; Emergency Provider Physician Assistant; PCP Family Medicine
DX: K52.9 Noninfective gastroenteritis and colitis, unspecified (principal); Z20.822 Contact with and (suspected) exposure to COVID-19
CPT/HCPCS: 36415; 74177; 80053; 81001; 83690; 85025; 87637; 96361; 96374; 96375; 99284; A9270; J0780; J1885; J2405; J7030; Q9967

== ENCOUNTER 2023-04-29 14:06 | Emergency (ER) | payer SELFPAY ==
[2023-04-29 14:10] VITALS: BP 147/83; PULSE 97; RESP 18; TEMP 36.4; O2SAT 98
--- NOTE | 2023-04-29 16:20 | PC.NURSE ---
pt walked out of department, no acute distress or SOB. airway patent, breathing even/unlabored, gait steady.
== END 2023-04-29 16:20 | disposition left against medical advice (07) ==
PROVIDERS: PCP Family Medicine
DX: R11.2 Nausea with vomiting, unspecified (principal)
CPT/HCPCS: 99199

== ENCOUNTER 2023-04-30 01:41 | Emergency (ER) | payer MEDICAID, SELFPAY ==
[2023-04-30 01:59] VITALS: BP 153/89; PULSE 116; RESP 20; TEMP 37.1; O2SAT 100
[2023-04-30 02:02] LABS: Basophils Percent Auto 0.1 % (0.2-1.2); Hematocrit 46.6 % (42.0-52.0); Hemoglobin 16.5 g/dL (14.0-18.0); Immature Granulocyte Absolute 0.08 K/mm3 (0.00-0.031); Immature Granulocyte Percent A 0.5 % (0-0.5); Lymphocytes Absolute Auto 1.58 K/mm3 (0.9-3.2); Lymphocytes Percent Auto 9.5 % (18.3-44.2); Mean Corpuscular HGB Conc 35.4 g/dl (32-36); Mean Corpuscular Hemoglobin 28.4 pg (26-34); Mean Corpuscular Volume 80.2 fl (80-100); Mean Platelet Volume 10.7 fl (7.4-10.4); Monocytes Absolute Auto 0.9 K/mm3 (0.1-0.6); Monocytes Percent Auto 5.2 % (2.6-8.5); Neutrophils Absolute Auto 14.1 K/mm3 (1.3-6.7); Neutrophils Percent Auto 84.7 % (45.5-73.1); Platelet Count Result 347 k/mm3 (150-375); Red Blood Count 5.81 M/mm3 (4.6-6.20); Red Cell Distribution Width 12.7 % (11.5-14.5); White Blood Count 16.7 K/mm3 (4.5-10.0)
[2023-04-30 02:12] LABS: Alanine Aminotransferase 79 U/L (6-50); Albumin Level 5.3 g/dL (3.5-5.1); Alkaline Phosphatase 89 U/L (38-126); Anion Gap 19 mmol/L (8-16); Aspartate Amino Transferase 34 U/L (17-59); Bilirubin,Total 1.1 mg/dL (0.2-1.3); Blood Urea Nitrogen 25 mg/dL (9-20); Calcium 10.9 mg/dL (8.4-10.2); Carbon Dioxide 18 mmol/L (22-30); Chloride 99 mmol/L (98-107); Estimated CRCL calculation 155 ml/min; Estimated Glomerular Filt Rate > 60; Glucose 148 mg/dL (65-110); Lipase 29 U/L (23-300); Potassium 4.1 mmol/L (3.4-5.0); Sodium 136 mmol/L (137-145)
[2023-04-30 02:54] VITALS: BP 134/90; PULSE 104; RESP 16; TEMP 37.1; O2SAT 100
--- NOTE | 2023-04-30 03:10 | PC.NURSE ---
Patient cried out for help saying he was in pain. Notified EDP.
--- NOTE | 2023-04-30 03:37 | ED.NAVMDI ---
HPI - Nausea/Vomiting/Diarrhea General Chief complaint: Nausea/Vomiting/Diarrhea Stated complaint: n/v Time Seen by Provider: 04/30/23 03:05 History of Present Illness HPI Narrative: Patient is a 22-year-old male presenting with nausea and vomiting. Patient states that he is addicted to Percocet that he normally takes 60 mg per day. States that he took only 20 mg today and then he ran out. Since that time he has been persistently nauseated and vomiting. Complains of diffuse body aches and diarrhea. States that he just wants to feel better. He denies any focal pain. Denies other substance use. Related Data Allergies Allergy/AdvReac Type Severity Reaction Status Date / Time No Known Allergies Allergy Verified 04/30/23 02:10 Review of Systems Review of Systems: All systems reviewed & are unremarkable except as noted in HPI and below PMFSH Past Medical History Medical History Cannabinoid hyperemesis syndrome Surgical History Surgical History No pertinent past surgical history Social History Social History Alcohol intake: never Substance use: current Substance use type: marijuana Exam Narrative: GENERAL: Nontoxic, moderately distressed secondary to nausea/vomiting HEAD: Normocephalic, atraumatic. EYES: PERRLA and EOMI. ENT: Mucous membranes moist. NECK: Supple. CHEST: Clear to auscultation. No respiratory distress. HEART: Regular rate and rhythm. ABDOMEN: Soft, nontender, nondistended EXTREMITIES: Normal range of motion. SKIN: Warm, dry, no rash. NEURO: Alert and oriented x3. PSYCH: Normal mood and affect. Course Vital Signs Vital signs: Vital Signs Temperature 98.7 F 04/30/23 01:59 Pulse Rate 116 H 04/30/23 01:59 Respiratory Rate 20 04/30/23 01:59 Blood Pressure 153/89 H 04/30/23 01:59 Pulse Oximetry 100 04/30/23 01:59 Oxygen Delivery Room Air 04/30/23 01:59 Temperature 98.8 F 04/30/23 02:54 Pulse Rate 108 H 04/30/23 05:16 Respiratory Rate 20 04/30/23 05:16 Blood Pressure 114/74 04/30/23 05:16 Pulse Oximetry 98 04/30/23 05:16 Oxygen Delivery Room Air 04/30/23 01:59 MDM - Nausea/Vomiting/Diarrhea MDM Narrative Medical decision making narrative: 22-year-old male presenting with vomiting, diarrhea in the setting of opiate withdrawal. Vitals are stable. Exam remarkable for the above. Patient is pretty dry on blood work. IV fluids have been ordered. Will treat with IM Haldol, IV Pepcid. Patient received 2 L of fluids, Haldol, Pepcid, GI cocktail, Zofran. States that he feels significantly improved and would like to go home which I think is reasonable. Discussed appropriate supportive care. Will send in some Zofran. Advised close PCP follow-up. Patient is agreeable with this plan. Discharged in stable condition. Differential Diagnosis Differential diagnosis: Likely gastroenteritis, dehydration and other ( Nausea and vomiting, opiate withdrawal) Medical Records Attestation: I reviewed the patient's medical records. Lab Data Attestation: I reviewed the patient's lab results. 04/30/23 01:54 04/30/23 01:54 Labs: Lab Results 04/30/23 Range/Units 01:54 WBC 16.7 H (4.5-10.0) K/mm3 RBC 5.81 (4.6-6.20) M/mm3 Hgb 16.5 (14.0-18.0) g/dL Hct 46.6 (42.0-52.0) % MCV 80.2 (80-100) fl MCH 28.4 (26-34) pg MCHC 35.4 (32-36) g/dl RDW 12.7 (11.5-14.5) % Plt Count 347 (150-375) k/mm3 MPV 10.7 H (7.4-10.4) fl Immature Gran % (Auto) 0.5 (0-0.5) % Neut % (Auto) 84.7 H (45.5-73.1) % Lymph % (Auto) 9.5 L (18.3-44.2) % [place] % (Auto) 5.2 (2.6-8.5) % Eos % (Auto) 0.0 (0-4.4) % Baso % (Auto) 0.1 L (0.2-1.2) % Lymph # (Auto) 1.58 (0.9-3.2) K/mm3 [place] # (Auto) 0.9 H (0.1-0.6) K/mm3 Eos # (Aut
[2023-04-30] MEDS: SODIUM CHLORIDE 0.9% IV 1,000 ML 999 ML IV CONT ×2 (03:45→05:07)
[2023-04-30] MEDS: FAMOTIDINE 20 MG/2 ML VIAL IV PUSH (03:45)
[2023-04-30] MEDS: HALOPERIDOL LACTATE 5 MG/ML VIAL IM (03:47)
[2023-04-30] MEDS: BELLADONNA ALK/PHENOB ELIX 10 ML, MAG HYDROX/ALUMINUM HYD/SIMETH 30 ML, LIDOCAINE HCL 2... PO (04:03)
[2023-04-30] MEDS: ONDANSETRON INJ 4 MG/2 ML VIAL IV PUSH (05:06)
[2023-04-30 05:16] VITALS: BP 114/74; PULSE 108; RESP 20; O2SAT 98
== END 2023-04-30 05:52 | disposition home or self-care (01) ==
PROVIDERS: Emergency Provider Emergency Medicine; PCP Family Medicine
DX: R11.2 Nausea with vomiting, unspecified (principal)
CPT/HCPCS: 36415; 80053; 83690; 85025; 96361; 96372; 96374; 96375; 99284; A9270; J1630; J2405; J7030

== ENCOUNTER 2023-05-05 15:52 | Emergency (ER) | payer MEDICAID, SELFPAY ==
[2023-05-05 15:54] VITALS: BP 157/90; PULSE 112; RESP 20; TEMP 36.4; O2SAT 98
--- NOTE | 2023-05-05 16:04 | PC.NURSE ---
patient states he was seen here last week for n/v and hasn't picked up his zofran that was prescribed. endorses 5 episodes of emesis today.
--- NOTE | 2023-05-05 16:10 | ED.NAVMDI ---
HPI - Nausea/Vomiting/Diarrhea General Chief complaint: Nausea/Vomiting/Diarrhea Stated complaint: im so freaking nauseous Time Seen by Provider: 05/05/23 16:01 History of Present Illness HPI Narrative: Patient is a 22-year-old male with history of Percocet abuse here with nausea and vomiting. Patient states that he had been taking 60 mg of Percocet for quite some time, he had been decreasing his dose and presented to the emergency department five days ago for similar symptoms. He states that he has not had any Percocet since that time. This morning he began having some nausea and vomiting again. He notes 5 episodes of vomiting, nonbloody. He endorses some mild abdominal discomfort associated specially when he vomits. No diarrhea. No known sick contacts. He denies any fever. Related Data Allergies Allergy/AdvReac Type Severity Reaction Status Date / Time No Known Allergies Allergy Verified 05/05/23 15:57 Review of Systems Review of Systems: All systems reviewed & are unremarkable except as noted in HPI and below PMFSH Past Medical History Medical History Cannabinoid hyperemesis syndrome Surgical History Surgical History No pertinent past surgical history Social History Social History Alcohol intake: never Substance use: current Substance use type: marijuana Exam Narrative: GENERAL: Well-appearing, well-nourished, Moving around on the bed appears to be unable to keep still HEAD: Normocephalic, atraumatic. EYES: PERRLA and EOMI. ENT: Mucous membranes moist. rhinorrhea present. face appears flushed NECK: Supple. CHEST: Clear to auscultation. No respiratory distress. HEART: tachycardic. Normal peripheral pulses. ABDOMEN: Soft, nontender, nondistended. EXTREMITIES: Normal range of motion. No edema. SKIN: diaphoretic, warm, no rash. NEURO: No focal deficits. Alert and oriented x3. PSYCH: anxious appearing Course Course Emergency Course: Chart review performed. Patient her with nausea x1 day. Triage vitals show tachycardia and mild hypertension. ED visit on 04/30 for nausea and vomiting. They had noted he is addicted to Percocet and had ran out. He received IVF, Haldol, Pepcid, GI cocktail, Zofran and felt much better and was discharged home. Patient seen evaluated. Concern for opiate withdrawal given symptoms and history of Percocet use. Basic lab work already ordered in triage. I did discuss initiation of Suboxone. He adamantly refuses this. His cows is 16 at this time. Will treat him symptomatically with other medications including Haldol, Benadryl, IV fluids. I will escalate to clonidine and benzodiazepine as my line of medication should he not improve. EKG ordered given providing patient with multiple QTC prolonging medications. Lab work reviewed, white blood cell count of 14.4. CMP grossly normal. Patient re-evaluated, feeling quite well, Feeling ready to be discharged. I did discuss once again initiation of the Suboxone when he refuses at this time. Discharged on Zofran and narcan. The results of pertinent diagnostic studies and exam findings were discussed. The patient?s provisional diagnosis and plan of care were discussed with the patient and present family. The patient and/or present family expressed understanding of the diagnosis and plan. The nurse was instructed to provide written instructions and appropriate follow-up information. The patient understands their need and responsibility to obtain additional follow-up as instructed. The risks of medications administered and prescribed were discussed with the patient and family present. Vital Signs Vital signs: Vital Signs Temperature 97.6 F 05/05/23 15:54 Pulse Rate 112 H 05/05/23 15:54 Respiratory Rate 20 05/05/23 15:54 Bloo
--- NOTE | 2023-05-05 16:14 | ECG_ITS ---
Measurements Intervals [place] Rate: 100 P: 64 NH: 139 QRS: 77 QRSD: 113 T: 36 QT: 343 QTc: 444 Interpretive Statements SINUS TACHYCARDIA INCOMPLETE RIGHT BUNDLE BRANCH BLOCK [90+ ms QRS DURATION, TERMINAL R IN V1/V2, 40+ ms S IN I/aVL/V4/V5/V6] ABNORMAL ECG COMPARED TO ECG 09/24/2020 07:20:24 SINUS TACHYCARDIA NOW PRESENT Electronically Signed On 05-06-2023 12:40:10 SYSTEMS TEST TECHNICIAN by Germán Wild M.D.
[2023-05-05] MEDS: ONDANSETRON INJ 4 MG/2 ML VIAL IV PUSH (16:27)
[2023-05-05] MEDS: PANTOPRAZOLE SODIUM IV 40 MG VIAL IV PUSH (16:27)
[2023-05-05] MEDS: LACTATED RINGERS 1,000 ML 999 ML IV CONT ×2 (16:27)
[2023-05-05] MEDS: diphenhydrAMINE HCl INJ 50 MG/ML VIAL 25 MG IV PUSH (16:35)
[2023-05-05] MEDS: HALOPERIDOL LACTATE 5 MG/ML VIAL IV PUSH (16:35)
[2023-05-05 16:46] LABS: Basophils Percent Auto 0.2 % (0.2-1.2); Eosinophils Absolute Auto 0.1 K/mm3 (0-0.3); Eosinophils Percent Auto 0.5 % (0-4.4); Hematocrit 44.8 % (42.0-52.0); Hemoglobin 15.3 g/dL (14.0-18.0); Immature Granulocyte Absolute 0.06 K/mm3 (0.00-0.031); Immature Granulocyte Percent A 0.4 % (0-0.5); Lymphocytes Absolute Auto 2.52 K/mm3 (0.9-3.2); Lymphocytes Percent Auto 17.5 % (18.3-44.2); Mean Corpuscular HGB Conc 34.2 g/dl (32-36); Mean Corpuscular Hemoglobin 28.2 pg (26-34); Mean Corpuscular Volume 82.5 fl (80-100); Mean Platelet Volume 10.8 fl (7.4-10.4); Monocytes Absolute Auto 0.7 K/mm3 (0.1-0.6); Monocytes Percent Auto 4.9 % (2.6-8.5); Neutrophils Percent Auto 76.5 % (45.5-73.1); Platelet Count Result 312 k/mm3 (150-375); Red Blood Count 5.43 M/mm3 (4.6-6.20); Red Cell Distribution Width 12.3 % (11.5-14.5); White Blood Count 14.4 K/mm3 (4.5-10.0)
[2023-05-05 16:54] LABS: Alanine Aminotransferase 35 U/L (6-50); Albumin Level 4.7 g/dL (3.5-5.1); Alkaline Phosphatase 89 U/L (38-126); Anion Gap 10 mmol/L (8-16); Aspartate Amino Transferase 26 U/L (17-59); Bilirubin,Total 1.1 mg/dL (0.2-1.3); Blood Urea Nitrogen 16 mg/dL (9-20); Calcium 9.9 mg/dL (8.4-10.2); Carbon Dioxide 20 mmol/L (22-30); Chloride 107 mmol/L (98-107); Estimated CRCL calculation 201 ml/min; Estimated Glomerular Filt Rate > 60; Glucose 100 mg/dL (65-110); Lipase 79 U/L (23-300); Potassium 4.2 mmol/L (3.4-5.0); Sodium 137 mmol/L (137-145)
[2023-05-05 17:33] LABS: Appearance Urine Clear (Clear); Bilirubin Urine Negative (Negative); Blood Urine Negative (Negative); Color Urine Yellow (Yellow); Glucose Urine UA Negative (Negative); Ketones Urine 1+ mg/dL (Negative); Leukocyte Esterase Ur Negative LEU/UL (Negative); Nitrate Urine Negative (Negative); Protein Urine Negative (Negative); Specific Grav Ur 1.025 (1.001-1.035); Urobilinogen Urine 0.2 mg/dL (<2.0)
[2023-05-05 17:35] LABS: Add Urine Microscopic? NO
== END 2023-05-05 17:39 | disposition home or self-care (01) ==
PROVIDERS: Emergency Medicine; Emergency Provider Student in an Organized Health Care Education/Training Program; PCP Family Medicine
DX: F11.23 Opioid dependence with withdrawal (principal); R11.2 Nausea with vomiting, unspecified
CPT/HCPCS: 36415; 80053; 81003; 83690; 85025; 93005; 96361; 96374; 96375; 99284; C9113; J1200; J1630; J2405; J7120

== ENCOUNTER 2023-07-04 06:13 | Emergency (ER) | payer OTHER, SELFPAY ==
[2023-07-04] VITALS (30 sets, daily range): BP systolic 118–156; BP diastolic 62–135; PULSE 88–95; RESP 16–18; TEMP 36.4; O2SAT 90–100
[2023-07-04 06:53] LABS: Basophils Percent Auto 0.4 % (0.2-1.2); Eosinophils Absolute Auto 0.1 K/mm3 (0-0.3); Eosinophils Percent Auto 0.9 % (0-4.4); Hematocrit 46.6 % (42.0-52.0); Hemoglobin 15.5 g/dL (14.0-18.0); Immature Granulocyte Absolute 0.03 K/mm3 (0.00-0.031); Immature Granulocyte Percent A 0.3 % (0-0.5); Lymphocytes Absolute Auto 3.15 K/mm3 (0.9-3.2); Mean Corpuscular HGB Conc 33.3 g/dl (32-36); Mean Corpuscular Hemoglobin 27.7 pg (26-34); Mean Corpuscular Volume 83.4 fl (80-100); Mean Platelet Volume 10.8 fl (7.4-10.4); Monocytes Absolute Auto 0.8 K/mm3 (0.1-0.6); Monocytes Percent Auto 7.5 % (2.6-8.5); Neutrophils Absolute Auto 6.7 K/mm3 (1.3-6.7); Neutrophils Percent Auto 61.9 % (45.5-73.1); Platelet Count Result 262 k/mm3 (150-375); Red Blood Count 5.59 M/mm3 (4.6-6.20); Red Cell Distribution Width 12.2 % (11.5-14.5); White Blood Count 10.9 K/mm3 (4.5-10.0)
[2023-07-04 06:56] LABS: Alanine Aminotransferase 31 U/L (6-50); Albumin Level 4.3 g/dL (3.5-5.1); Alkaline Phosphatase 81 U/L (38-126); Anion Gap 11 mmol/L (8-16); Aspartate Amino Transferase 25 U/L (17-59); Bilirubin,Total 1.3 mg/dL (0.2-1.3); Blood Urea Nitrogen 14 mg/dL (9-20); Calcium 9.6 mg/dL (8.4-10.2); Carbon Dioxide 23 mmol/L (22-30); Chloride 105 mmol/L (98-107); Estimated CRCL calculation 175 ml/min; Estimated Glomerular Filt Rate > 60; Glucose 114 mg/dL (65-110); Lipase 45 U/L (23-300); Potassium 3.6 mmol/L (3.4-5.0); Sodium 139 mmol/L (137-145)
--- NOTE | 2023-07-04 07:12 | ED.GENADULT ---
HPI - General Adult General Chief complaint: Nausea/Vomiting/Diarrhea Stated complaint: n/v Time Seen by Provider: 07/04/23 07:03 History of Present Illness HPI narrative: Patient is a 23-year-old male who presents to the emergency department this morning complaining of nausea, vomiting, and abdominal cramping for the past 3 days. Patient also admits that he has been having diarrhea for the past 3 days, loose brown stools, denies any melena or hematochezia. Patient also denies any exposure to sick contacts or recent travel. Patient admits that he does smoke marijuana but did quit approximately 1 week ago as he has had similar symptoms in the past that were attributed to cyclical vomiting syndrome. He denies any localized abdominal pain. Patient denies any additional symptoms including chest pain, shortness of breath, dysuria, hematuria, constipation, fevers or chills. Patient also denies any headaches, dizziness, lightheadedness, blurry visions, focal weakness, numbness and or tingling. There are no other modifying, alleviating, or precipitating factors at this time. Related Data Allergies Allergy/AdvReac Type Severity Reaction Status Date / Time No Known Allergies Allergy Verified 07/04/23 06:21 Review of Systems Review of Systems: All systems are reviewed and are negative unless stated otherwise in the HPI. [facility] Past Medical History Medical History Cannabinoid hyperemesis syndrome Surgical History Surgical History No pertinent past surgical history Social History Social History Alcohol intake: never Substance use: current Substance use type: marijuana Exam Narrative: General: Alert, awake, afebrile, in no acute distress. HEENT: PERRL, no rhinorrhea, no post nasal drip, oropharynx clear. Neck: Trachea midline, no JVD, no lymphadenopathy. Cardiovascular: Regular rate and rhythm, no murmurs, rubs or gallops, no peripheral edema. Respiratory: Clear to auscultation bilaterally, no tachypnea, no wheezing, no rhonchi, no rubs, no respiratory distress. Abdomen: Soft, nontender, nondistended, no rebound, no guarding, no peritoneal signs. Musculoskeletal: No joint swelling or deformity, normal muscle tone. Skin: No rashes or petechia, no signs of infection. Psychiatric: Alert and oriented, normal behavior and judgment for situation. Neurological: Alert and oriented to person, place, and time. Follows all commands. No focal deficits, speech is clear and fluent. Course Vital Signs Vital signs: Vital Signs Temperature 97.6 F 07/04/23 06:17 Pulse Rate 95 07/04/23 06:17 Respiratory Rate 18 07/04/23 06:17 Blood Pressure 149/107 H 07/04/23 06:17 Pulse Oximetry 100 07/04/23 06:17 Oxygen Delivery Room Air 07/04/23 06:17 Temperature 97.6 F 07/04/23 06:21 Pulse Rate 95 07/04/23 06:21 Respiratory Rate 18 07/04/23 06:21 Blood Pressure 149/107 H 07/04/23 06:21 Pulse Oximetry 100 07/04/23 06:21 Oxygen Delivery Room Air 07/04/23 06:17 Medical Decision Making MDM Narrative Medical decision making narrative: The patient was evaluated by myself in the emergency department. History is obtained from patient who is an independent historian and physical exam was performed. External medical records were reviewed at this time. IV was established and pertinent tests were ordered. Patient was administered a 1 L IV fluid bolus with normal saline, 10 mg of IV Reglan and 50 mg of IV Benadryl. Laboratory results obtained revealing no acute process. Urinalysis currently pending collection. Differential diagnosis considerations include viral gastroenteritis, viral syndrome including COVID/influenza/RSV and cyclical vomiting syndrome given his history of similar symptoms in the past and history of marijuana use. Co
[2023-07-04 08:02] LABS: Influenza A QL RT-PCR Negative (Negative); Influenza B QL RT-PCR Negative (Negative); SARS-CoV-2 RNA PCR Negative (Negative)
[2023-07-04] MEDS: SODIUM CHLORIDE 0.9% IV 1,000 ML 999 ML IV CONT (08:19)
[2023-07-04] MEDS: diphenhydrAMINE HCl INJ 50 MG/ML VIAL IV PUSH (08:20)
[2023-07-04] MEDS: METOCLOPRAMIDE HCL INJ 10 MG/2 ML VIAL IV PUSH (08:20)
[2023-07-04] MEDS: HALOPERIDOL LACTATE 5 MG/ML VIAL IV PUSH (08:47)
[2023-07-04 09:41] LABS: Appearance Urine Turbid (Clear); Bacteria Urine None Seen /hpf; Bilirubin Urine Negative (Negative); Blood Urine Negative (Negative); Color Urine Yellow (Yellow); Glucose Urine UA Negative (Negative); Ketones Urine 2+ mg/dL (Negative); Leukocyte Esterase Ur Trace LEU/UL (Negative); Nitrate Urine Negative (Negative); Non Pathogenic Casts 0-2; Protein Urine Trace mg/dL (Negative); RBC Urine 0-2 /hpf (0-2); Specific Grav Ur 1.025 (1.001-1.035); Squamous Epithelial Cell Urine None seen /hpf (Few); WBC Urine 0-5 /hpf; pH Urine >=9.0 (5.0-9.0)
[2023-07-04 09:59] LABS: Add Urine Microscopic? YES
== END 2023-07-04 10:19 | disposition home or self-care (01) ==
PROVIDERS: Emergency Medicine; Emergency Provider Emergency Medicine
DX: K52.9 Noninfective gastroenteritis and colitis, unspecified (principal); R11.15 Cyclical vomiting syndrome unrelated to migraine; Z20.822 Contact with and (suspected) exposure to COVID-19
CPT/HCPCS: 36415; 80053; 81001; 83690; 85025; 87636; 96361; 96374; 96375; 99284; J1200; J1630; J2765; J7030

== ENCOUNTER 2023-10-20 03:35 | Emergency (ER) | payer OTHER, SELFPAY ==
[2023-10-20 03:40] VITALS: BP 140/91; PULSE 95; RESP 22; TEMP 36.8; O2SAT 100
[2023-10-20 03:53] VITALS: BP 129/82; PULSE 97; RESP 19; TEMP 37.1; O2SAT 99
[2023-10-20] MEDS: ONDANSETRON INJ 4 MG/2 ML VIAL (04:06)
[2023-10-20 04:14] LABS: Basophils Percent Auto 0.3 % (0.2-1.2); Eosinophils Absolute Auto 0.1 K/mm3 (0-0.3); Eosinophils Percent Auto 0.5 % (0-4.4); Hematocrit 46.3 % (42.0-52.0); Hemoglobin 15.9 g/dL (14.0-18.0); Immature Granulocyte Absolute 0.03 K/mm3 (0.00-0.031); Immature Granulocyte Percent A 0.3 % (0-0.5); Lymphocytes Absolute Auto 3.63 K/mm3 (0.9-3.2); Lymphocytes Percent Auto 30.5 % (18.3-44.2); Mean Corpuscular HGB Conc 34.3 g/dl (32-36); Mean Corpuscular Hemoglobin 27.9 pg (26-34); Mean Corpuscular Volume 81.4 fl (80-100); Mean Platelet Volume 10.8 fl (7.4-10.4); Monocytes Absolute Auto 0.8 K/mm3 (0.1-0.6); Monocytes Percent Auto 6.6 % (2.6-8.5); Neutrophils Absolute Auto 7.4 K/mm3 (1.3-6.7); Neutrophils Percent Auto 61.8 % (45.5-73.1); Platelet Count Result 260 k/mm3 (150-375); Red Blood Count 5.69 M/mm3 (4.6-6.20); Red Cell Distribution Width 12.8 % (11.5-14.5); White Blood Count 11.9 K/mm3 (4.5-10.0)
[2023-10-20] MEDS: SODIUM CHLORIDE 0.9% IV 1,000 ML 999 ML IV CONT (04:22)
[2023-10-20 04:23] LABS: Alanine Aminotransferase 32 U/L (6-50); Albumin Level 4.6 g/dL (3.5-5.1); Alkaline Phosphatase 83 U/L (38-126); Anion Gap 11 mmol/L (4-12); Aspartate Amino Transferase 26 U/L (17-59); Bilirubin,Total 1.5 mg/dL (0.2-1.3); Blood Urea Nitrogen 12 mg/dL (9-20); Calcium 9.6 mg/dL (8.4-10.2); Carbon Dioxide 24 mmol/L (22-30); Chloride 105 mmol/L (98-107); Estimated CRCL calculation 183 ml/min; Estimated Glomerular Filt Rate > 60; Glucose 109 mg/dL (65-110); Lipase 55 U/L (23-300); Potassium 3.7 mmol/L (3.4-5.0); Sodium 140 mmol/L (137-145)
--- NOTE | 2023-10-20 04:28 | ED.NAVMDI ---
HPI - Nausea/Vomiting/Diarrhea General Chief complaint: Nausea/Vomiting/Diarrhea Stated complaint: vomit Time Seen by Provider: 10/20/23 03:44 Source: patient Limitations: no limitations History of Present Illness HPI Narrative: Patient is a 23-year-old male presents to the emergency department complaining of nausea and vomiting. Patient notes he has been having this since approximately Saturday when he stopped taking Percocets and he is taking upwards of 20-30 mg of Percocet a day prior to that he was trying to go cold turkey and does not want any Suboxone or methadone. Patient also the insert the soreness in the past when he got off of opioids but it never lasted this long. Patient also admits to history of cannabinoid hyperemesis syndrome but notes that he has not been smoking more 1 at all. Patient denies any pain. Patient denies any significant diarrhea. Patient denies chest pain, difficulty breathing, sick contacts, fever. Related Data Allergies Allergy/AdvReac Type Severity Reaction Status Date / Time No Known Allergies Allergy Verified 07/04/23 06:21 Review of Systems Review of Systems: A 10 system review of systems was completed on the patient and is negative except for what is stated in the HPI. Nursing and ancillary documentation was reviewed. [facility] Past Medical History Medical History Cannabinoid hyperemesis syndrome Surgical History Surgical History No pertinent past surgical history Social History Social History Alcohol intake: never Substance use: current Substance use type: marijuana Comments At time of signature, I have reviewed and agree with nursing past medical, surgical, social and family history unless otherwise noted. Please see the nursing chart for further information. There is no relevant family history pertinent to the presenting complaint. Exam Narrative: CONST: No acute distress. Well nourished. HENMT: Head is normocephalic and atraumatic. Moist mucous membranes. No posterior oropharynx erythema. EYES: No conjunctival icterus, injection, or pallor. PERRL. NECK: No meningeal signs. RESP: Able to speak in full sentences. Normal respiratory effort. CTAB. CARDIO: Regular rate. Regular rhythm. 2+ DP and radial pulses bilaterally. GI: Nondistended. No tenderness to palpation. Soft. : No CVA tenderness to palpation. SKIN: No rashes or lesions noted on exposed skin. NEURO: Oriented x3. Moves all extremities. EXTREM/MSK/BACK: No pedal edema. PSYCH: Normal affect. Course Vital Signs Vital signs: Vital Signs Temperature 98.2 F 10/20/23 03:40 Pulse Rate 95 10/20/23 03:40 Respiratory Rate 22 H 10/20/23 03:40 Blood Pressure 140/91 H 10/20/23 03:40 Pulse Oximetry 100 10/20/23 03:40 Oxygen Delivery Room Air 10/20/23 03:40 Temperature 98.8 F 10/20/23 03:53 Pulse Rate 91 10/20/23 04:52 Respiratory Rate 16 10/20/23 04:51 Blood Pressure 142/82 H 10/20/23 04:52 Pulse Oximetry 100 10/20/23 04:51 Oxygen Delivery Room Air 10/20/23 03:40 MDM - Nausea/Vomiting/Diarrhea MDM Narrative Medical decision making narrative: Patient presents with the above complaint. Initial vitals are remarkable for no significant abnormalities. Physical examination as noted above. Plan discussed: Laboratory analysis, EKG, IV fluids, Haldol, Benadryl, famotidine. Patient does not want any medication assisted therapy for opioid withdrawal. Patient demonstrates understanding and agreement with plan of care. Presentation appears most consistent with opioid withdrawal syndrome, patient does not want medication assisted therapy, will treat supportively. Patient was reassessed at the bedside. No changes in physical exam. Patient is in no acute distress. The patient has remained stab
--- NOTE | 2023-10-20 04:31 | ECG_ITS ---
SEE SCANNED COPY FOR CONFIRMED REPORT MTDD
[2023-10-20] MEDS: diphenhydrAMINE HCl INJ 50 MG/ML VIAL 25 MG IV PUSH (04:44)
[2023-10-20] MEDS: FAMOTIDINE 20 MG/2 ML VIAL IV PUSH (04:45)
[2023-10-20] MEDS: HALOPERIDOL LACTATE 5 MG/ML VIAL IV PUSH (04:46)
[2023-10-20 04:50] LABS: Magnesium 2.2 mg/dL (1.6-2.3)
[2023-10-20 04:51] VITALS: BP 144/90; PULSE 83; RESP 16; O2SAT 100
[2023-10-20 04:52] VITALS: BP 142/82; BP 157/96; PULSE 82; PULSE 91
== END 2023-10-20 05:45 | disposition home or self-care (01) ==
PROVIDERS: Emergency Provider Student in an Organized Health Care Education/Training Program
DX: R11.2 Nausea with vomiting, unspecified (principal); I49.9 Cardiac arrhythmia, unspecified
CPT/HCPCS: 36415; 80053; 83690; 83735; 85025; 93005; 96361; 96374; 96375; 99284; J1200; J1630; J2405; J7030

== ENCOUNTER 2024-01-09 12:36 | Emergency (ER) | payer OTHER, SELFPAY ==
[2024-01-09 12:50] VITALS: BP 150/100; PULSE 84; RESP 18; TEMP 36.6; O2SAT 100
[2024-01-09] MEDS: ONDANSETRON INJ 4 MG/2 ML VIAL IV PUSH (13:05)
[2024-01-09 13:06] LABS: Basophils Percent Auto 0.3 % (0.2-1.2); Eosinophils Absolute Auto 0.1 K/mm3 (0-0.3); Eosinophils Percent Auto 0.9 % (0-4.4); Hemoglobin 16.9 g/dL (14.0-18.0); Immature Granulocyte Absolute 0.06 K/mm3 (0.00-0.031); Immature Granulocyte Percent A 0.5 % (0-0.5); Lymphocytes Absolute Auto 2.13 K/mm3 (0.9-3.2); Lymphocytes Percent Auto 17.8 % (18.3-44.2); Mean Corpuscular HGB Conc 34.5 g/dl (32-36); Mean Corpuscular Hemoglobin 28.4 pg (26-34); Mean Corpuscular Volume 82.2 fl (80-100); Mean Platelet Volume 10.8 fl (7.4-10.4); Monocytes Absolute Auto 0.8 K/mm3 (0.1-0.6); Monocytes Percent Auto 6.3 % (2.6-8.5); Neutrophils Absolute Auto 8.9 K/mm3 (1.3-6.7); Neutrophils Percent Auto 74.2 % (45.5-73.1); Platelet Count Result 284 k/mm3 (150-375); Red Blood Count 5.96 M/mm3 (4.6-6.20); Red Cell Distribution Width 12.6 % (11.5-14.5)
[2024-01-09 13:26] LABS: Alanine Aminotransferase 28 U/L (6-50); Albumin Level 4.9 g/dL (3.5-5.1); Alkaline Phosphatase 89 U/L (38-126); Anion Gap 14 mmol/L (4-12); Aspartate Amino Transferase 29 U/L (17-59); Blood Urea Nitrogen 19 mg/dL (9-20); Calcium 10.5 mg/dL (8.4-10.2); Carbon Dioxide 22 mmol/L (22-30); Chloride 103 mmol/L (98-107); Estimated CRCL calculation 172 ml/min; Estimated Glomerular Filt Rate > 60; Glucose 121 mg/dL (65-110); Lipase 45 U/L (23-300); Potassium 4.2 mmol/L (3.4-5.0); Sodium 139 mmol/L (137-145)
[2024-01-09] MEDS: HALOPERIDOL LACTATE 5 MG/ML VIAL IM (13:31)
[2024-01-09] MEDS: SODIUM CHLORIDE 0.9% IV 1,000 ML 999 ML IV CONT (13:32)
--- NOTE | 2024-01-09 13:51 | ED.GENADULT ---
HPI - General Adult General Chief complaint: Nausea/Vomiting/Diarrhea Stated complaint: dizziness, N/V Time Seen by Provider: 01/09/24 12:56 History of Present Illness HPI narrative: 23-year-old male presents to the emergency department for evaluation for persist nausea and vomiting. Patient does have history of cannabis hyperemesis syndrome but states he has not smoked marijuana in approximately 3 weeks. Patient states that since last night he has been unable to control his nausea and vomiting. Patient denies any associated abdominal pain. Related Data Allergies Allergy/AdvReac Type Severity Reaction Status Date / Time No Known Allergies Allergy Verified 01/09/24 12:53 Review of Systems Review of Systems: All systems reviewed & are unremarkable except as noted in HPI and below PMFSH Past Medical History Medical History Cannabinoid hyperemesis syndrome Surgical History Surgical History No pertinent past surgical history Social History Social History Alcohol intake: never Substance use: current Substance use type: marijuana Exam Narrative: APPEARANCE: Distress secondary to nausea and vomiting HEAD: normocephalic, atraumatic. EYES: PERRLA/EOMI, conjunctivae clear. NOSE: Normal no drainage EARS:TMS clear with good light reflex. THROAT: Pharynx clear, no exudate. NECK: Supple. No adenopathy, no masses. RESPIRATORY: Airway patent, respirations nonlabored. Clear to auscultation bilaterally, no rales, rhonchi, wheezing. CARDIOVASCULAR: Regular rate and rhythm without murmurs rubs or gallops. ABDOMINAL: Soft, nontender, nondistended, normal bowel sounds MUSCULOSKELETAL: Moves all extremities. Strength/ROM intact, No edema, No calf tenderness. NEURO: Alert. Cranial nerves II through XII intact. Grossly intact SKIN: Warm, dry. Normal Color Course Course Emergency Course: Patient was treated with Haldol and patient's symptoms resolved. Vital Signs Vital signs: Vital Signs Temperature 97.8 F 01/09/24 12:50 Pulse Rate 84 01/09/24 12:50 Respiratory Rate 18 01/09/24 12:50 Blood Pressure 150/100 H 01/09/24 12:50 Pulse Oximetry 100 01/09/24 12:50 Temperature 98.4 F 01/09/24 15:13 Pulse Rate 93 01/09/24 15:13 Respiratory Rate 17 01/09/24 15:13 Blood Pressure 113/65 01/09/24 15:13 Pulse Oximetry 97 01/09/24 15:13 Medical Decision Making MDM Narrative Medical decision making narrative: 23-year-old male presenting to the emergency department for evaluation for persistent vomiting. Patient's symptoms were resolved with Haldol. Patient was afebrile but does have a leukocytosis of 12 and hemoglobin of 16.9. No acute abnormalities his CMP, patient was treated with a L of IV fluids. Patient did not make urine and patient requesting discharge home. Patient was encouraged of close follow-up with GI. Patient was well-appearing at time of discharge. All questions and concerns were addressed. Vital Signs Vital Signs: Vital Signs Temperature 97.8 F 01/09/24 12:50 Pulse Rate 84 01/09/24 12:50 Respiratory Rate 18 01/09/24 12:50 Blood Pressure 150/100 H 01/09/24 12:50 Pulse Oximetry 100 01/09/24 12:50 Temperature 98.4 F 01/09/24 15:13 Pulse Rate 93 01/09/24 15:13 Respiratory Rate 17 01/09/24 15:13 Blood Pressure 113/65 01/09/24 15:13 Pulse Oximetry 97 01/09/24 15:13 Lab Data 01/09/24 12:55 01/09/24 12:55 Labs: Lab Results 01/09/24 01/09/24 Range/Units 12:55 14:52 WBC 12.0 H (4.5-10.0) K/mm3 RBC 5.96 (4.6-6.20) M/mm3 Hgb 16.9 (14.0-18.0) g/dL Hct 49.0 (42.0-52.0) % MCV 82.2 (80-100) fl MCH 28.4 (26-34) pg MCHC 34.5 (32-36) g/dl RDW 12.6 (11.5-14.5) % Plt Count 284 (150-375) k/mm3 MPV
[2024-01-09 14:58] VITALS: BP 123/70; PULSE 95; RESP 16; O2SAT 97
[2024-01-09 15:13] VITALS: BP 113/65; PULSE 93; RESP 17; TEMP 36.9; O2SAT 97
[2024-01-09 15:38] LABS: Add Urine Microscopic? YES; Appearance Urine Clear (Clear); Bacteria Urine None Seen /hpf; Bilirubin Urine Negative (Negative); Blood Urine Negative (Negative); Color Urine Dark Yellow (Yellow); Glucose Urine UA Negative (Negative); Ketones Urine Trace mg/dL (Negative); Leukocyte Esterase Ur Negative LEU/UL (Negative); Nitrate Urine Negative (Negative); Protein Urine 1+ mg/dL (Negative); RBC Urine 0-2 /hpf (0-2); Specific Grav Ur 1.029 (1.001-1.035); Squamous Epithelial Cell Urine None Seen /hpf (Few); WBC Urine 0-5 /hpf (0-3); pH Urine 7.5 (5.0-9.0)
== END 2024-01-09 15:15 | disposition home or self-care (01) ==
PROVIDERS: Physician Assistant; Emergency Provider Emergency Medicine
DX: R11.2 Nausea with vomiting, unspecified (principal)
CPT/HCPCS: 36415; 80053; 81001; 83690; 85025; 96361; 96372; 96374; 99284; J1630; J2405; J7030

== ENCOUNTER 2024-01-11 08:01 | Emergency (ER) | payer OTHER, SELFPAY ==
--- NOTE | 2024-01-11 08:59 | PC.NURSE ---
Pt called to get vital signs taken at 0833 and 0852 with no answer
== END 2024-01-11 09:06 | disposition left against medical advice (07) ==
LOC: ANHED 09:05
DX: R11.2 Nausea with vomiting, unspecified (principal)
CPT/HCPCS: 99199

== ENCOUNTER 2024-01-11 10:01 | Emergency (ER) | payer OTHER, SELFPAY ==
[2024-01-11 10:07] VITALS: BP 137/71; PULSE 67; RESP 14; TEMP 36.4; O2SAT 98
[2024-01-11 13:01] VITALS: BP 120/72; PULSE 63; RESP 16; TEMP 36.7; O2SAT 96
--- NOTE | 2024-01-11 13:14 | ED.GENADULT ---
HPI - General Adult General Chief complaint: Nausea/Vomiting/Diarrhea Stated complaint: vomiting Time Seen by Provider: 01/11/24 12:56 History of Present Illness HPI narrative: 23-year-old male with history of hyperemesis syndrome presents to the emergency department for evaluation for persistent nausea and vomiting. Patient was just in the emergency department few days ago. And did feel improved with treatment of Haldol. Patient does report he has have being follow-up with GI this week. Patient states he has been taking antinausea medications and omeprazole. Patient does have history of cannabinoid use but denies any recent cannabinoid use. Related Data Allergies Allergy/AdvReac Type Severity Reaction Status Date / Time No Known Allergies Allergy Verified 01/09/24 12:53 Review of Systems Review of Systems: All systems reviewed & are unremarkable except as noted in HPI and below PMFSH Past Medical History Medical History Cannabinoid hyperemesis syndrome Surgical History Surgical History No pertinent past surgical history Social History Social History Alcohol intake: never Substance use: current Substance use type: marijuana Exam Narrative: APPEARANCE: Ill-appearing secondary to nausea HEAD: normocephalic, atraumatic. EYES: PERRLA/EOMI, conjunctivae clear. NOSE: Normal no drainage EARS:TMS clear with good light reflex. THROAT: Pharynx clear, no exudate. NECK: Supple. No adenopathy, no masses. RESPIRATORY: Airway patent, respirations nonlabored. Clear to auscultation bilaterally, no rales, rhonchi, wheezing. CARDIOVASCULAR: Regular rate and rhythm without murmurs rubs or gallops. ABDOMINAL: Soft, nontender, nondistended, normal bowel sounds MUSCULOSKELETAL: Moves all extremities. Strength/ROM intact, No edema, No calf tenderness. NEURO: Alert. Cranial nerves II through XII intact. Good gait. Good coordination SKIN: Warm, dry. Normal Color Course Course Emergency Course: Patient felt improved with treatment Vital Signs Vital signs: Vital Signs Temperature 97.6 F 01/11/24 10:07 Pulse Rate 67 01/11/24 10:07 Respiratory Rate 14 01/11/24 10:07 Blood Pressure 137/71 01/11/24 10:07 Pulse Oximetry 98 01/11/24 10:07 Temperature 98.0 F 01/11/24 13:01 Pulse Rate 63 01/11/24 13:01 Respiratory Rate 16 01/11/24 13:01 Blood Pressure 120/72 01/11/24 13:01 Pulse Oximetry 96 01/11/24 13:01 Oxygen Delivery Room Air 01/11/24 13:01 Medical Decision Making MDM Narrative Medical decision making narrative: 23-year-old male presents to the emergency department for evaluation of persistent nausea and vomiting. Patient was treated with Haldol and states he does feel improved. Patient was also treated with 1 L of IV fluids. Patient is afebrile but does have a leukocytosis of 16.5 and hemoglobin of 15.8. Patient has no significant abnormalities on his CMP and lipase is negative. Vital Signs Vital Signs: Vital Signs Temperature 97.6 F 01/11/24 10:07 Pulse Rate 67 01/11/24 10:07 Respiratory Rate 14 01/11/24 10:07 Blood Pressure 137/71 01/11/24 10:07 Pulse Oximetry 98 01/11/24 10:07 Temperature 98.0 F 01/11/24 13:01 Pulse Rate 63 01/11/24 13:01 Respiratory Rate 16 01/11/24 13:01 Blood Pressure 120/72 01/11/24 13:01 Pulse Oximetry 96 01/11/24 13:01 Oxygen Delivery Room Air 01/11/24 13:01 Lab Data 01/11/24 13:46 01/11/24 13:46 Labs: Lab Results 01/11/24 Range/Units 13:46 WBC 16.5 H (4.5-10.0) K/mm3 RBC 5.58 (4.6-6.20) M/mm3 Hgb 15.8 (14.0-18.0) g/dL Hct 45.7 (42.0-52.0) % MCV 81.9 (80-100) fl MCH 28.3 (26-34) pg MCHC 34.6 (32-36) g/dl RDW 12.8 (11.5-14.5) % Plt Count 310 (150-375) k
[2024-01-11] MEDS: SODIUM CHLORIDE 0.9% IV 1,000 ML 999 ML IV CONT (13:44)
[2024-01-11] MEDS: PANTOPRAZOLE SODIUM IV 40 MG VIAL IV PUSH (13:45)
[2024-01-11] MEDS: HALOPERIDOL LACTATE 5 MG/ML VIAL IM (13:45)
[2024-01-11 13:52] LABS: Basophils Absolute Auto 0.1 K/mm3 (0.0-0.1); Basophils Percent Auto 0.3 % (0.2-1.2); Eosinophils Percent Auto 0.1 % (0-4.4); Hematocrit 45.7 % (42.0-52.0); Hemoglobin 15.8 g/dL (14.0-18.0); Immature Granulocyte Absolute 0.05 K/mm3 (0.00-0.031); Immature Granulocyte Percent A 0.3 % (0-0.5); Lymphocytes Absolute Auto 3.25 K/mm3 (0.9-3.2); Lymphocytes Percent Auto 19.7 % (18.3-44.2); Mean Corpuscular HGB Conc 34.6 g/dl (32-36); Mean Corpuscular Hemoglobin 28.3 pg (26-34); Mean Corpuscular Volume 81.9 fl (80-100); Mean Platelet Volume 11.1 fl (7.4-10.4); Monocytes Absolute Auto 1.3 K/mm3 (0.1-0.6); Monocytes Percent Auto 8.1 % (2.6-8.5); Neutrophils Absolute Auto 11.8 K/mm3 (1.3-6.7); Neutrophils Percent Auto 71.5 % (45.5-73.1); Platelet Count Result 310 k/mm3 (150-375); Red Blood Count 5.58 M/mm3 (4.6-6.20); Red Cell Distribution Width 12.8 % (11.5-14.5); White Blood Count 16.5 K/mm3 (4.5-10.0)
[2024-01-11 14:05] LABS: Lactic Acid Reflex 1.4 mmol/L (0.7-2.0)
[2024-01-11 14:06] LABS: Alanine Aminotransferase 28 U/L (6-50); Albumin Level 4.7 g/dL (3.5-5.1); Alkaline Phosphatase 98 U/L (38-126); Anion Gap 14 mmol/L (4-12); Aspartate Amino Transferase 32 U/L (17-59); Bilirubin,Total 1.4 mg/dL (0.2-1.3); Blood Urea Nitrogen 16 mg/dL (9-20); Calcium 9.6 mg/dL (8.4-10.2); Carbon Dioxide 25 mmol/L (22-30); Chloride 96 mmol/L (98-107); Estimated CRCL calculation 159 ml/min; Estimated Glomerular Filt Rate > 60; Glucose 107 mg/dL (65-110); Lipase 49 U/L (23-300); Potassium 3.4 mmol/L (3.4-5.0); Sodium 135 mmol/L (137-145)
== END 2024-01-11 14:34 | disposition home or self-care (01) ==
PROVIDERS: Emergency Provider Emergency Medicine
DX: R11.2 Nausea with vomiting, unspecified (principal); F12.90 Cannabis use, unspecified, uncomplicated
CPT/HCPCS: 36415; 80053; 83605; 83690; 85025; 96361; 96372; 96374; 99284; J1630; J2470; J7030

== ENCOUNTER 2024-05-18 21:26 | Emergency (ER) | payer OTHER, SELFPAY ==
[2024-05-18 21:29] VITALS: BP 144/85; PULSE 102; RESP 14; TEMP 36.4; O2SAT 100
[2024-05-18 22:54] LABS: Basophils Percent Auto 0.3 % (0.2-1.2); Eosinophils Percent Auto 0.1 % (0-4.4); Hematocrit 46.3 % (42.0-52.0); Hemoglobin 16.1 g/dL (14.0-18.0); Immature Granulocyte Absolute 0.07 K/mm3 (0.00-0.031); Immature Granulocyte Percent A 0.5 % (0-0.5); Lymphocytes Absolute Auto 1.73 K/mm3 (0.9-3.2); Lymphocytes Percent Auto 12.4 % (18.3-44.2); Mean Corpuscular HGB Conc 34.8 g/dl (32-36); Mean Corpuscular Hemoglobin 27.9 pg (26-34); Mean Corpuscular Volume 80.1 fl (80-100); Mean Platelet Volume 10.5 fl (7.4-10.4); Monocytes Absolute Auto 0.7 K/mm3 (0.1-0.6); Monocytes Percent Auto 4.9 % (2.6-8.5); Neutrophils Absolute Auto 11.4 K/mm3 (1.3-6.7); Neutrophils Percent Auto 81.8 % (45.5-73.1); Platelet Count Result 286 k/mm3 (150-375); Red Blood Count 5.78 M/mm3 (4.6-6.20); Red Cell Distribution Width 12.6 % (11.5-14.5); White Blood Count 13.9 K/mm3 (4.5-10.0)
[2024-05-18 23:06] LABS: Alanine Aminotransferase 32 U/L (6-50); Albumin Level 4.8 g/dL (3.5-5.1); Alkaline Phosphatase 101 U/L (38-126); Anion Gap 8 mmol/L (4-12); Aspartate Amino Transferase 32 U/L (17-59); Bilirubin,Total 1.1 mg/dL (0.2-1.3); Blood Urea Nitrogen 14 mg/dL (9-20); Calcium 10.2 mg/dL (8.4-10.2); Carbon Dioxide 20 mmol/L (22-30); Chloride 110 mmol/L (98-107); Estimated CRCL calculation 206 ml/min; Estimated Glomerular Filt Rate > 60; Glucose 128 mg/dL (65-110); Lipase 30 U/L (23-300); Potassium 3.7 mmol/L (3.4-5.0); Sodium 138 mmol/L (137-145)
[2024-05-19] MEDS: SODIUM CHLORIDE 0.9% IV 1,000 ML 999 ML IV CONT ×2 (01:07→01:16)
[2024-05-19] MEDS: ONDANSETRON INJ 4 MG/2 ML VIAL IV PUSH (01:07)
[2024-05-19] MEDS: HALOPERIDOL LACTATE 5 MG/ML VIAL IM (01:16)
[2024-05-19 01:27] LABS: Lactic Acid Reflex 1.9 mmol/L (0.7-2.0)
--- NOTE | 2024-05-19 01:47 | ED_ITS ---
HPI - General Adult General Chief complaint: Nausea/Vomiting/Diarrhea Stated complaint: N/V, cold Time Seen by Provider: 05/19/24 00:44 History of Present Illness HPI narrative: Patient is a 23-year-old male who presents to the emergency department this evening with nausea and vomiting. Patient is well-known to our facility for cyclical vomiting syndrome secondary to cannabinoid use. Admits that this feels just like his regular cyclical vomiting syndrome. Last time I saw this patient a few months ago he informed me that he had quit smoking marijuana a week prior. When I asked him today if he is still smoking he states that he quit 3 days ago. Friend present with him at bedside states that he does this all the time secondary to his marijuana use. Related Data Allergies Allergy/AdvReac Type Severity Reaction Status Date / Time No Known Allergies Allergy Verified 01/09/24 12:53 Review of Systems 2 Review of Systems: All systems are reviewed and are negative unless stated otherwise in the HPI. [facility] Past Medical History Medical History Cannabinoid hyperemesis syndrome Surgical History Surgical History No pertinent past surgical history Social History Social History Alcohol intake: never Substance use: current Substance use type: marijuana Exam 2 Narrative: General: Alert, awake, afebrile, actively vomiting and dry heaving. HEENT: PERRL, no rhinorrhea, no post nasal drip, oropharynx clear. Neck: Trachea midline, no JVD, no lymphadenopathy. Cardiovascular: Regular rate and rhythm, no murmurs, rubs or gallops, no peripheral edema. Respiratory: Clear to auscultation bilaterally, no tachypnea, no wheezing, no rhonchi, no rubs, no respiratory distress. Abdomen: Soft, nontender, nondistended, no rebound, no guarding, no peritoneal signs. Musculoskeletal: No joint swelling or deformity, normal muscle tone. Skin: No rashes or petechia, no signs of infection. Psychiatric: Alert and oriented, normal behavior and judgment for situation. Neurological: Alert and oriented to person, place, and time. Follows all commands. No focal deficits, speech is clear and fluent. Course Vital Signs Vital signs: Vital Signs Temperature 97.6 F 05/18/24 21:29 Pulse Rate 102 H 05/18/24 21:29 Respiratory Rate 14 05/18/24 21:29 Blood Pressure 144/85 H 05/18/24 21:29 Pulse Oximetry 100 05/18/24 21:29 Oxygen Delivery Room Air 05/18/24 21:29 Temperature 97.6 F 05/18/24 21:29 Pulse Rate 102 H 05/18/24 21:29 Respiratory Rate 14 05/18/24 21:29 Blood Pressure 144/85 H 05/18/24 21:29 Pulse Oximetry 100 05/18/24 21:29 Oxygen Delivery Room Air 05/18/24 21:29 Medical Decision Making MDM Narrative Medical decision making narrative: The patient was evaluated by myself in the emergency department. History is obtained from patient who is an independent historian and physical exam was performed. External medical records were reviewed at this time. IV was established and pertinent tests were ordered. Patient was administered 2 L IV fluid bolus with normal saline and 4 mg of IV Zofran with minimal to no improvement of his symptoms. At this time patient was administered 5 mg of IM Haldol. On repeat assessment, patient's vomiting has finally stopped, however he still continues to complain of nausea and 10 mg of IV Reglan and 50 mg of IV Benadryl were administered at this time. Laboratory results obtained revealing leukocytosis of 13.9 likely reactive, otherwise no acute process. Viral swabs negative for COVID/RSV/influenza. Differential diagnosis considerations include cyclical vomiting syndrome, gastroenteritis, acute viral syndrome. Comorbidities impacting this visit include history of cyclical vomiting syndrome secondary to daily cannabinoid use. I have evaluated and discussed social determinants of health with the patient that could potentially impact subsequent diagnosis and treatment plans. On repeat assessment of the patient, reevaluation revealed that the patient is doing well and is in no acute distress. Patient symptoms have improved since he arrived to our emergency department. Patient is requesting a GI cocktail and Pepcid and both were administered at this time. Serial abdominal examination revealed a soft nontender non peritoneal abdomen. Repeat vital signs were all reviewed and noted to be stable. Differential diagnosis and treatment plan were discussed with the patient at bedside. Patient agrees with discussion and after shared medical decision making agrees with discharge. All questions were answered to the patient's satisfaction. Patient will follow up with PCP in 3-5 days. Informed that his symptoms are not going to improve until he quits smoking marijuana. Script for Zofran was sent to patient's pharmacy to use as needed for nausea/vomiting Patient was provided with strict return precautions and instructed to return to the emergency department if any new or worsening symptoms develop. The patient was discharged in stable condition. Vital Signs Vital Signs: Vital Signs Temperature 97.6 F 05/18/24 21:29 Pulse Rate 102 H 05/18/24 21:29 Respiratory Rate 14 05/18/24 21:29 Blood Pressure 144/85 H 05/18/24 21:29 Pulse Oximetry 100 05/18/24 21:29 Oxygen Delivery Room Air 05/18/24 21:29 Temperature 97.6 F 05/18/24 21:29 Pulse Rate 102 H 05/18/24 21:29 Respiratory Rate 14 05/18/24 21:29 Blood Pressure 144/85 H 05/18/24 21:29 Pulse Oximetry 100 05/18/24 21:29 Oxygen Delivery Room Air 05/18/24 21:29 Lab Data 05/18/24 22:46 05/18/24 22:46 Labs: Lab Results 05/18/24 05/19/24 05/19/24 Range/Units 22:46 01:05 01:17 WBC 13.9 H (4.5-10.0) K/mm3 RBC 5.78 (4.6-6.20) M/mm3 Hgb 16.1 (14.0-18.0) g/dL Hct 46.3 (42.0-52.0) % MCV 80.1 (80-100) fl MCH 27.9 (26-34) pg MCHC 34.8 (32-36) g/dl RDW 12.6 (11.5-14.5) % Plt Count 286 (150-375) k/mm3 MPV 10.5 H (7.4-10.4) fl Immature Gran % (Auto) 0.5 (0-0.5) % Neut % (Auto) 81.8 H (45.5-73.1) % Lymph % (Auto) 12.4 L (18.3-44.2) % [place] % (Auto) 4.9 (2.6-8.5) % Eos % (Auto) 0.1 (0-4.4) % Baso % (Auto) 0.3 (0.2-1.2) % Lymph # (Auto) 1.73 (0.9-3.2) K/mm3 [place] # (Auto) 0.7 H (0.1-0.6) K/mm3 Eos # (Auto) 0.0 (0-0.3) K/mm3 Baso # (Auto) 0.0 (0.0-0.1) K/mm3 Abs Immat Gran (auto) 0.07 H (0.00-0.031) K/mm3 Absolute Neuts (auto) 11.4 H (1.3-6.7) K/mm3 Absolute Nucleated RBC 0.000 (0.0-0.012) K/mm3 Nucleated RBC % 0.0 (0.0-0.2) % Sodium 138 (137-145) mmol/L Potassium 3.7 (3.4-5.0) mmol/L Chloride 110 H (98-107) mmol/L Carbon Dioxide 20 L (22-30) mmol/L Anion Gap 8 (4-12) mmol/L BUN 14 (9-20) mg/dL Creatinine 0.60 L (0.7-1.3) mg/dL Estim Creat Clear Calc 206 ml/min Estimated GFR > 60 (59 - ) Glucose 128 H (65-110) mg/dL Lactic Acid 1.9 (0.7-2.0) mmol/L Calcium 10.2 (8.4-10.2) mg/dL Total Bilirubin 1.1 (0.2-1.3) mg/dL AST 32 (17-59) U/L ALT 32 (6-50) U/L Alkaline Phosphatase 101 (38-126) U/L Total Protein 8.0 (6.3-8.2) g/dL Albumin 4.8 (3.5-5.1) g/dL Lipase 30 (23-300) U/L Influenza A (RT-PCR) Negative (Negative) Influenza B (RT-PCR) Negative (Negative) RSV (RT-PCR) Negative (Negative) SARS-CoV-2 RNA (RT-PCR) Negative (Negative) Discharge Plan Discharge Clinical Impression: Nausea and vomiting, Cyclical vomiting syndrome Patient Disposition: Home, Self-Care Condition: Improved Instructions: Antibiotic Form, Cyclic Vomiting Syndrome (ED) Additional Instructions: Please follow-up with your family doctor within the next 3-5 days. You were instructed to stop smoking marijuana as this is likely the cause of your symptoms. Use the prescribed Zofran as needed for nausea and vomiting. Return to the emergency department if any new or worsening symptoms develop. Patient Language: Icelandic Prescriptions: New ondansetron 4 mg tablet,disintegrating 4 mg PO Q8H PRN (Reason: nausea and vomiting) Qty: 10 0RF Follow-up/Referrals: Marlene Camarena DO [Physician] - 3 Days UNKNOWN,DOCTOR [Primary Care Provider] - Time of Disposition: 01:53
[2024-05-19 01:59] LABS: Influenza A QL RT-PCR Negative (Negative); Influenza B QL RT-PCR Negative (Negative); RSV RNA, RT-PCR Negative (Negative); SARS-CoV-2 RNA PCR Negative (Negative)
[2024-05-19] MEDS: METOCLOPRAMIDE HCL INJ 10 MG/2 ML VIAL IV PUSH (03:07)
[2024-05-19] MEDS: diphenhydrAMINE HCl INJ 50 MG/ML VIAL IV PUSH (03:07)
[2024-05-19] MEDS: BELLADONNA ALK/PHENOB ELIX 10 ML, MAG HYDROX/ALUMINUM HYD/SIMETH 30 ML, LIDOCAINE 2% VI... PO (03:34)
[2024-05-19] MEDS: FAMOTIDINE 20 MG/2 ML VIAL IV PUSH (03:34)
[2024-05-19 04:16] VITALS: BP 135/87; PULSE 92; RESP 17; O2SAT 100
--- OUTSIDE RECORDS SUMMARY | 2024-05-26 02:40 | XMS_ITS | Encounter Summary ---
Author Organization [facility] Address [address] [place] [address]. [place], [place] [id number] [place] [id number] Care Team Providers Care Leather Lacer Name Role Phone Osbaldo Hong MD Primary Care Provider Unav ailable Reason for Visit * Reason Comments Lab (SCAN) Encounter Details Date Type Department Care Team (Latest Contact Info) Description 05/05/2023 Scan [facility] Scanned, [facility] Lab (SCAN) Social History Tobacco Use Types Packs/Day Years Used Date Smoking Tobacco: Never Smokeless Tobacco: Never Alcohol Use Standard Drinks/Week Comments Not Currently 0 (1 standard drink = 0.6 oz pur e alcohol) AUDIT-C Answer Date Recorded Q1: How often do you have a drink containing alc ohol? Never 01/04/2020 Average Number of Drinks Not on file 020 Frequency of Binge Drinking Not on file 12/25 Sex and Gender Information Value Date Recorded Sex Assigned at Not on file Legal Sex Male 8:09 PM CDT Gender Identity Not on file Sexual Orientation Not on file documented as of this encounter Plan of Treatment Not on file documented as of this encounter Procedures Procedure Name Priority Date/Time Associated Diagnosis Comments OUTSIDE LAB (SCAN ORDER) 05/05/2023 OUTSIDE LAB (SCAN ORDER) 05/05/2023 OUTSIDE LAB (SCAN ORDER) 05/05/2023 documented in this encounter Results * OUTSIDE LAB (SCAN) (05/05/2023) 05/05/2023 [facility] Scanned SCANNING Final Resu lt * OUTSIDE LAB (SCAN) (05/05/2023) 05/05/2023 [facility] Scanned SCANNING Final Resu lt * OUTSIDE LAB (SCAN) (05/05/2023) 05/05/2023 [facility] Scanned SCANNING Final Resu lt documented in this encounter Visit Diagnoses Not on filedocumented in this encounter Care Teams Leather Lacer Relationship Specialty Start Date End Date Osbaldo Hong MD PCP - General FAMILY PRACTICE 11/30/21 documented as of this encounter
--- OUTSIDE RECORDS SUMMARY | 2024-05-26 02:40 | XMS_ITS | Encounter Summary ---
Author Organization [facility] Address [address] [place] [address]. [place], [place] [id number] [place] [id number] Care Team Providers Care Public Relations Senior Associate Name Role Phone Osbaldo Hong MD Primary Care Provider Unav ailable Encounter Details Date Type Department Care Team (Latest Contact Info) Description 10/15/2023 Scan [facility] Scanned, Doc [facility] Social History Tobacco Use Types Packs/Day Years [...] on file documented as of this encounter Visit Diagnoses Not on filedocumented in this encounter Care Teams Public Relations Senior Associate Relationship Specialty Start Date End Date Osbaldo Hong MD PCP - General FAMILY PRACTICE 11/30/21 documented as of this encounter
--- OUTSIDE RECORDS SUMMARY | 2024-05-26 02:40 | XMS_ITS | Encounter Summary ---
Author Organization [facility] Address [address] [place] [address]. [place], [place] [id number] [place] [address] Care Team Providers Care Digital Production Operator Name Role Phone Osbaldo Hong MD Primary Care Provider Unav ailable Encounter Details Date Type Department Care Team (Latest Contact Info) Description 12/20/2023 Scan [facility] Scanned, Doc [...] on filedocumented in this encounter Care Teams Digital Production Operator Relationship Specialty Start Date End Date Osbaldo Hong MD PCP - General FAMILY PRACTICE 11/30/21 documented as of this encounter
--- OUTSIDE RECORDS SUMMARY | 2024-05-26 02:40 | XMS_ITS | Clinical Summary ---
Author Organization [facility] Address [address] [place] [address]. [place], [place] [id number] [place] [id number] Care Team Providers Care Teacher Name Role Phone Osbaldo Hong MD Primary Care Provider Unav ailable Allergies No known active allergies Medications ondansetron (ZOFRAN-ODT) 4 MG disintegrating tablet Take 1 tablet (4 mg total) by mouth every 8 (eight) hours as needed for Nausea. 20 tablet 3 Active ondansetron (ZOFRAN) 4 MG tablet Take 1 tablet (4 mg total) by mouth every 8 (eight) hours as needed for Nausea. 20 tablet 4 Active Active Problems No known active problems Immunizations Name Administration Dates Next Due Dtap (Acel-Immune) 12/28/2003,01/15/2000, 999,1998 Hib (Generic) 01/15/2000 Hib-Hepatitis B (Comvax) 04/17/1999,1998 MMR (MMRII) 01/15/2000 Polio IPV (Ipol) 02/16/2003, 1,01/15/2000,04/17/1999, 999 Varicella (Varivax) 02/16/2003 Family History Medical History Relation Comments Diabetes Maternal Grandfather Cancer Mother Diabetes Paternal Aunt Diabetes Paternal Uncle Relation Status Comments Maternal Grandfather Mother Paternal Aunt Paternal Uncle Social History Tobacco Use Types Packs/Day Years Used Date Smoking Tobacco: Never Smokeless Tobacco: Never Tobacco Cessation:Counseling Given: Not Answered Alcohol Use Standard Drinks/Week Comments Not Currently [...] on file Sexual Orientation Not on file Last Filed Vital Signs Vital Sign Reading Time Taken Comments Blood Pressure 142/79 10/15/2023 9:38 PM CDT Pulse 79 10/15/2023 9:38 PM CDT Temperature 36.4 ??C (97.6 ??F) 10/15/2023 4:50 PM CD T Respiratory Rate 16 10/15/2023 9:38 PM CDT Oxygen Saturation 99% 10/15/2023 7:30 PM CDT Inhaled Oxygen Concentration - - Weight 142.9 kg (315 lb) 10/15/2023 4:50 PM CDT Height 185.4 cm (6' 1 ) 10/15/2023 4:50 PM CDT Body Mass Index 41.56 10/15/2023 4:50 PM CDT Plan of Treatment Health Maintenance Due Date Last Done Comments Hepatitis B Vaccines (3 of 3 - 3-dose series) 06/12/1999 04/17/1999, 1998 Annual Physical 2001 DTaP, Tdap and Td Vaccines (5 - Tdap) 2009 12/28/2003, 01/15/2000, 04/17/1999, Additional history exists HPV Vaccines (1 - Male 3-dose series) 2013 Hepatitis C 2016 COVID-19 Vaccine ( - season) 2024 Influenza Adult (#1) 2024 Meningococcal Vaccine Aged Out No vinay matty eligible based on patient's age to complete this topic Pneumococcal Vaccine: Pediatrics (0 to 5 Years) and At-Risk Patients (6 to 64 Years) Aged Out No longer eligible based on patient's age to complete this topic RSV Immunizations Under 20 Months Aged Out No longer eligible based on patient's age to complete this topic Insurance [employer] Care Teams Teacher Relationship Specialty Start Date End Date Osbaldo Hong MD PCP - General FAMILY PRACTICE 11/30/21
--- OUTSIDE RECORDS SUMMARY | 2024-05-26 02:40 | XMS_ITS | Encounter Summary ---
Author Organization [facility] Address [address] [place] [address]. [place], [place] [id number] [place] [address] Care Team Providers Care [employer] Guidance Counselor Name Role Phone Lesli Griffith MD Primary Care Provider Unav ailable Reason for Visit * Reason Comments Vomiting Encounter Details Date Type Department Care Team (Late st Contact Info) Description 06/30/2023 2:13 PM HEATER OPERATOR - 06/30/2023 7:12 PM HEATER OPERATOR Emergency [facility] [place] [address] Severino Guerrero MD [address] [address] Vomiting Discharge Disposition: Home or Self Care (Routine Discharge) Social History Tobacco Use Types Packs/Day Years [...] on file documented as of this encounter Last Filed Vital Signs Vital Sign Reading Time Taken Comments Blood Pressure 143/89 06/30/2023 2:30 PM HEATER OPERATOR Pulse 85 06/30/2023 1:20 PM HEATER OPERATOR Temperature 36.5 ??C (97.7 ??F) 06/30/2023 2:30 PM CS T Respiratory Rate 20 06/30/2023 2:30 PM HEATER OPERATOR Oxygen Saturation 99% 06/30/2023 2:30 PM HEATER OPERATOR Inhaled Oxygen Concentration - - Weight 131.5 kg (290 lb) 06/30/2023 1:20 PM HEATER OPERATOR Height 185.4 cm (6' 1 ) 06/30/2023 1:20 PM HEATER OPERATOR Body Mass Index 38.26 06/30/2023 1:20 PM HEATER OPERATOR documented in this encounter Discharge Instructions * Discharge Instructions* Severino Guerrero MD - 06/30/2023 4:36 PM HEATER OPERATOR Return to the ER for new or worsening symptoms or any other concerns. You may use cool compress forthe redness on your abdomen. ER OPERATOR * Attachments The following attachments cannot be sent through Care Everywhere. * Cannabis hyperemesis syndrome (Ukrainian) documented in this encounter Medications at Time of Discharge ondansetron (ZOFRAN-ODT) 4 MG disintegrating tablet Take 1 tablet (4 mg total) by mouth every 8 (eight) hours as needed for Nausea. 20 tablet 10/04/2022 documented as of this encounter Nursing Notes * Nhi Rosa RN - 06/30/2023 3:50 PM CST Pt requested his mother be notified about his current status. Mother called and updated. ER OPERATOR * Nhi Rosa RN - 06/30/2023 3:45 PM CST Pt developed a rash all over the abdomen,pt denies any pain at this time. notified. ER OPERATOR documented in this encounter ED Notes * Severino Guerrero MD - 06/30/2023 3:59 PM CST [place], [place] EMERGENCY DEPARTMENT ENCOUNTER Chief Complaint Chief Complaint Patient presents with Vomiting History of Present Illness Provider at Bedside Date/Time Event User Comments 06/30/23 3908 Provider at Bedside Assessing Patient DAWOOD PHELPS R -- 06/30/23 8335 Provider at Bedside Assessing Patient SEVERINO GUERRERO -- Vomiting Associated symptoms: abdominal pain Associated symptoms: no chills, no cough, no diarrhea, no fever, no headaches and no sore throat The patient is a 23-year-old male with a past medical history of Cannabinoid hyperemesis syndrome who presents to the emergency department by EMS from home for multiple rounds of emesis and abdominalpain that began this morning after patient smoked cannabis. Per triage note, pt reportedly visited [facility] ED earlier today, however, left AMA d/t long wait time. No other complaints. Medical History ALLERGIES: Review of patient's allergies indicates: No Known Allergies MEDICATIONS: Prior to Admission medications Medication Sig Start Date End Date Taking? Authorizing Provider ondansetron (ZOFRAN-ODT) 4 MG disintegrating tablet Take 1 tablet (4 mg total) by mouth every 8 (eight) hours as needed for Nausea. 10/04/22 Clementina Elise MD PAST MEDICAL HISTORY: Past Medical History: Diagnosis Date Cannabinoid hyperemesis syndrome Pneumonia PAST SURGICAL HISTORY: Past Surgical History: Procedure Laterality Date OTHER PROCEDURE ear tubes TONSILLECTOMY FAMILY HISTORY: Family History Problem Relation Name Age of Onset Cancer Mother Diabetes Paternal Aunt Diabetes Paternal Uncle Diabetes Maternal Grandfather SOCIAL HISTORY: Social History Tobacco Use Smoking status: Never Smokeless tobacco: Never Vaping Use Vaping Use: Never used Substance Use Topics Alcohol use: Not Currently Drug use: Yes Types: Marijuana Review of Systems Review of Systems Constitutional: Negative for chills and fever. HENT: Negative for sore throat. Eyes: Negative for pain. Respiratory: Negative for cough and shortness of breath. Cardiovascular: Negative for chest pain. Gastrointestinal: Positive for abdominal pain, nausea and vomiting. Negative for diarrhea. Endocrine: Negative for polyuria. Genitourinary: Negative for dysuria. Skin: Negative for rash. Neurological: Negative for dizziness and headaches. Psychiatric/Behavioral: Negative for behavioral problems. See HPI for further details. All systems negative except as marked. Physical Exam Filed Vitals: 06/30/23 1320 06/30/23 1430 BP: (!) 134/90 (!) 143/89 Pulse: 85 Resp: 16 20 Temp: 97 ??F (36.1 ??C) 97.7 ??F (36.5 ??C) TempSrc: Temporal SpO2: 93% 99% Weight: 131.5 kg (290 lb) Height: 1.854 m (6' 1 ) Physical Exam Vitals and nursing note reviewed. Constitutional: Appearance: He is well-developed. HENT: Head: Normocephalic and atraumatic. Eyes: Conjunctiva/sclera: Conjunctivae normal. Cardiovascular: Rate and Rhythm: Normal rate and regular rhythm. Pulmonary: Effort: Pulmonary effort is normal. Breath sounds: Normal breath sounds. No stridor. Abdominal: General: Bowel sounds are normal. Palpations: Abdomen is soft. Tenderness: There is no abdominal tenderness. Comments: Skin of abdominal wall is erythematous. Musculoskeletal: General: No deformity. Cervical back: Neck supple. Skin: General: Skin is warm and dry. Neurological: Mental Status: He is alert and oriented to person, place, and time. Diagnostic Studies / Procedures ELECTROCARDIOGRAMS: No results found for this visit on 06/30/23. LABORATORY STUDIES: Results for orders placed or performed during the hospital encounter of 06/30/23 CBC W/DIFF AUTOMATED Result Value Ref Range WBC 15.0 (H) 4.5 - 11.0 x10'3/uL RBC 5.55 4.70 - 6.10 x10'6/uL HGB 15.6 14.0 - 18.0 G/DL HCT 46.2 43.0 - 54.0 % MCV 83.2 80.0 - 94.0 FL MCH 28.1 27.0 - 31.0 PG MCHC 33.8 32.0 - 36.0 G/DL RDW 12.3 11.5 - 14.5 % PLT 279 130 - 400 x10'3/uL MPV 10.6 9.3 - 12.2 FL DIFFERENTIAL TYPE AUTOMATED DIFFERENTIAL NEUTROPHILS 87.1 % LYMPHOCYTES 9.3 % MONOCYTES 2.3 % EOSINOPHILS 0.2 % BASOPHILS 0.3 % IMMATURE GRANS 0.8 % ABS. NEUTROPHILS TOTAL 13.07 (H) 1.80 - 7.70 x10'3/uL ABS. LYMPHOCYTES 1.40 1.00 - 4.80 x10'3/uL ABS. MONOCYTES 0.34 0.30 - 0.82 x10'3/uL ABS. EOSINOPHILS 0.03 (L) 0.04 - 0.54 x10'3/uL ABS. BASOPHILS 0.04 0.01 - 0.08 x10'3/uL ABS. IMMATURE GRANULOCYTES 0.12 0.00 - 0.49 x10'3/uL COMPREHENSIVE METABOLIC PANEL Result Value Ref Range GLUCOSE 147 (H) 70 - 99 MG/DL BUN 16 7 - 18 MG/DL CREATININE S/P/B 0.88 0.7 - 1.3 MG/DL SODIUM S/P/B 140 136 - 145 MMOL/L POTASSIUM S/P/B 3.7 3.5 - 5.1 MMOL/L CHLORIDE S/P/B 114 (H) 100 - 108 MMOL/L CO2 20.6 (L) 21 - 32 MMOL/L CALCIUM S/P/B 9.6 8.5 - 10.1 MG/DL BILIRUBIN TOTAL S/P/B 0.8 0.2 - 1.2 MG/DL TOTAL PROTEIN S/P/B 7.8 6.4 - 8.2 G/DL ALBUMIN S/P/B 3.9 3.4 - 5.0 G/DL AST 24 15 - 37 U/L ALT 36 16 - 60 U/L ALKALINE PHOSPHATASE S/P/B 87 50 - 136 U/L ANION GAP 5.4 5 - 15 MMOL/L BUN CREATININE RATIO 18.2 6 - 26 A/G RATIO 1.0 1.0 - 2.0 RATIO GFR ESTIMATE >90 >90 ML/MIN/1.73 M2 LIPASE Result Value Ref Range LIPASE 13 13 - 75 UNITS/L IMAGING STUDIES No orders to display ED Course / Medical Decision Making Medical Decision Making Problems Addressed: Cannabis hyperemesis syndrome concurrent with and due to cannabis abuse ([facility]/HCC) ([facility]/HCC): acute illness or injury Amount and/or Complexity of Data Reviewed External Data Reviewed: notes. Details: 02/26/2023 patient was seen at an outside hospital emergency department for cannabis hyperemesis syndrome. Labs: ordered. Decision-making details documented in ED Course. ED Course as of 06/30/23 1638 Sun Jun 30, 2023 1632 WBC elevated at 15.0 however it has been similarly elevated in the past. No anemia. Chemistry unremarkable. Lipase normal. Patient was treated with IV fluids, Haldol, Zofran, Benadryl and he is now feeling better. He was also treated with Capzasin but that was removed after he developed a red irritation to his abdominal wall. [] 1633 Patient states that he is feeling better and is requesting discharge. Patient's mother was called and stated that she has tried multiple different interventions to try to get him to stop using marijuana but has not been successful. [] ED Course User Index [BH] Severino Guerrero MD Pulse Ox Interpretation: Saturation: 99 (%) Oxygen Delivery: RA Interpretation: No acute hypoxia at this time. Data reviewed: All current, pertinent and timely studies (laboratory, imaging, and procedures) wereordered and results reviewed by Severino Guerrero MD unless otherwise noted. Triage notes and available nursing notes reviewed. Previous medical record reviewed when available. Repeat vital signs reviewed. Medications sodium chloride 0.9% bolus infusion 1,000 mL (0 mLs Intravenous Infusion Stop Time 06/30/23 1544) capsaicin (ABSORBINE ARTHRITIS) 0.025 % cream ( Topical Given 06/30/23 1515) ondansetron (ZOFRAN) injection 4 mg (4 mg Intravenous Given 06/30/23 1435) haloperidol lactate (HALDOL) injection 5 mg (5 mg Intravenous Given 06/30/23 1443) diphenhydrAMINE (BENADRYL) injection 50 mg (50 mg Intravenous Given 06/30/23 1443) Clinical Impression Cannabis hyperemesis syndrome concurrent with and due to cannabis abuse ([facility]/HCC) ([facility]/HCC) (Primary) Current Discharge Medication List Disposition: Discharge Follow-Up: LESLI GRIFFITH MD (Inactive) Amparo Bosch, acting as a scribe, am personally taking down the notes in the presence of Severino Guerrero MD. Take no action on this note until reviewed and authenticated by the physician. Severino Guerrero MD 06/30/23 4896 ER OPERATOR * SUSAN Ruiz - 06/30/2023 1:48 PM CST [place], [place] EMERGENCY DEPARTMENT ENCOUNTER Medical Screening Examination 06/30/23 1:48 PM Chief Complaint : Vomiting HPI : Aj L[place] is a 23-year-old male who has hx of has a past medical history of Cannabinoid hyperemesis syndrome and Pneumonia. presents with nausea and vomiting starting this morning. Pt has hx of cannaboid hyperemesis syndrome but did smoke cannabis today. Vital Signs: Filed Vitals: 06/30/23 1320 BP: (!) 134/90 Pulse: 85 Resp: 16 Temp: 97 ??F (36.1 ??C) SpO2: 93% Weight: 131.5 kg (290 lb) Height: 1.854 m (6' 1 ) Physical exam: A brief physical exam was completed to facilitate/expedite patient care. Looney findings include: Heart: RRR Lungs: CTA BL Pt dry heaving in triage Please note: Pt's physical exam is limited with pt being fully clothed and upright in triage. Plan: Labs were ordered to facilitate patient care. and Antiemetics were ordered to faciliate patient care. SUSAN Ruiz 06/30/23 1349 Cosigned by Jamie Tapia MD at 07/02/2023 9:01 AM HEATER OPERATOR ER OPERATOR ER OPERATOR * Lucrecia Doshi RN - 06/30/2023 1:41 PM CSTSummary: TRIAGE Pt to ED from home via EMS for hyperemesis brought on by smoking mariajuana that started this am. Went to [facility] earlier but left ama due to the wait time. Poc blood sugar 118 per ems. ER OPERATOR documented in this encounter Plan of Treatment Not on file documented as of this encounter Procedures Procedure Name Priority Date/Time Associated Diagnosis Comments COMPREHENSIVE METABOLIC PANEL STAT 06/30/2023 2:25 PM HEATER OPERATOR CBC W/DIFF AUTOMATED STAT 06/30/2023 2:25 PM HEATER OPERATOR LIPASE STAT 06/30/2023 2:25 PM HEATER OPERATOR documented in this encounter Results * LIPASE (06/30/2023 2:25 PM HEATER OPERATOR) Pathologist [facility] LIPASE 13 13 - 75 UNITS/L 06/30/2023 3:00 PM HEATER OPERATOR [facility] 06/30/2023 2:25 PM HEATER OPERATOR [facility] Final Resu lt [facility] [address] [place] [address], * (ABNORMAL) COMPREHENSIVE METABOLIC PANEL (06/30/2023 2:25 PM HEATER OPERATOR) Pathologist [facility] Emergency Department GLUCOSE 147(H) 70 - 99 MG/DL 06/30/2023 3:00 PM HEATER OPERATOR [facility] BUN 16 7 - 18 MG/DL 06/30/2023 3:00 PM [facility] CREATININE S/P/B 0.88 0.7 - 1.3 MG/DL 06/30/2023 3:00 PM HEATER OPERATOR [facility] SODIUM S/P/B 140 136 - 145 MMOL/L 06/30/2023 3:00 PM [facility] POTASSIUM S/P/B 3.7 3.5 - 5.1 MMOL/L 06/30/2023 3:00 PM [facility] CHLORIDE S/P/B 114(H) 100 - 108 MMOL/L 06/30/2023 3:00 PM [facility] CO2 20.6(L) 21 - 32 MMOL/L 06/30/2023 3:00 PM [facility] CALCIUM S/P/B 9.6 8.5 - 10.1 MG/DL 06/30/2023 3:00 PM [facility] BILIRUBIN TOTAL S/P/B 0.8 0.2 - 1.2 MG/DL 06/30/2023 3:00 PM [facility] Comment: THIS ASSAY IS NOT RECOMMENDED FOR PATIENTS UNDERGOING TREATMENT WITH ELTROMBOPAG DUE TO THE POTENTIAL FOR FALSELY ELEVATED RESULTS. TOTAL PROTEIN S/P/B 7.8 6.4 - 8.2 G/DL 06/30/2023 3:00 PM [facility] ALBUMIN S/P/B 3.9 3.4 - 5.0 G/DL 06/30/2023 3:00 PM [facility] AST 24 15 - 37 U/L 06/30/2023 3:00 PM [facility] ALT 36 16 - 60 U/L 06/30/2023 3:00 PM [facility] ALKALINE PHOSPHATASE S/P/B 87 50 - 136 U/L 06/30/2023 3:00 PM [facility] ANION GAP 5.4 5 - 15 MMOL/L 06/30/2023 3:00 PM [facility] BUN CREATININE RATIO 18.2 6 - 26 06/30/2023 3:00 PM [facility] A/G RATIO 1.0 1.0 - 2.0 RATIO 06/30/2023 3:00 PM [facility] GFR ESTIMATE >90 >90 ML/MIN/1.7 3 M2 06/30/2023 3:00 PM [facility] Comment: NOTE: eGFR is not calculated for patients <18 years of age. This is an estimated GFR calculation using the new CKD EPI creatinine equation without race and so does not require a correction factor for race. This estimated GFR should not be used for calculating drug doses. 06/30/2023 2:25 PM HEATER OPERATOR [facility] Final Resu lt [facility] [address] [place] [address], [place] [phone] * (ABNORMAL) CBC W/DIFF AUTOMATED (06/30/2023 2:25 PM HEATER OPERATOR) [facility] WBC 15.0(H) 4.5 - 11.0 x10'3/uL 06/30/2023 2:39 PM HEATER OPERATOR [facility] RBC 5.55 4.70 - 6.10 x10'6/uL 06/30/2023 2:39 PM HEATER OPERATOR [facility] HGB 15.6 14.0 - 18.0 G/DL 06/30/2023 2:39 PM HEATER OPERATOR [facility] HCT 46.2 43.0 - 54.0 % 06/30/2023 2:39 PM HEATER OPERATOR [facility] MCV 83.2 80.0 - 94.0 FL 06/30/2023 2:39 PM HEATER OPERATOR [facility] MCH 28.1 27.0 - 31.0 PG 06/30/2023 2:39 PM HEATER OPERATOR [facility] MCHC 33.8 32.0 - 36.0 G/DL 06/30/2023 2:39 PM HEATER OPERATOR [facility] RDW 12.3 11.5 - 14.5 % 06/30/2023 2:39 PM HEATER OPERATOR [facility] PLT 279 130 - 400 x10'3/uL 06/30/2023 2:39 PM HEATER OPERATOR [facility] MPV 10.6 9.3 - 12.2 FL 06/30/2023 2:39 PM HEATER OPERATOR [facility] DIFFERENTIAL TYPE AUTOMATED DIFFERENTIAL 06/30/2023 2:39 PM HEATER OPERATOR [facility] NEUTROPHILS % 87.1 % 06/30/2023 2:39 PM HEATER OPERATOR [facility] LYMPHOCYTES % 9.3 % 06/30/2023 2:39 PM HEATER OPERATOR [facility] MONOCYTES % 2.3 % 06/30/2023 2:39 PM HEATER OPERATOR [facility] EOSINOPHILS 0.2 % 06/30/2023 2:39 PM HEATER OPERATOR [facility] BASOPHILS 0.3 % 06/30/2023 2:39 PM HEATER OPERATOR [facility] IMMATURE GRANS % 0.8 % 06/30/19 2:39 PM HEATER OPERATOR [facility] ABS. NEUTROPHILS TOTAL 13.07(H) 1.80 - 7.70 x10'3/uL 06/30/2023 2:39 PM HEATER OPERATOR [facility] ABS. LYMPHOCYTES 1.40 1.00 - 4.80 x10'3/uL 06/30/2023 2:39 PM HEATER OPERATOR [facility] ABS. MONOCYTES 0.34 0.30 - 0.82 x10'3/uL 06/30/2023 2:39 PM HEATER OPERATOR [facility] ABS. EOSINOPHILS 0.03(L) 0.04 - 0.54 x10'3/uL 06/30/2023 2:39 PM HEATER OPERATOR [facility] ABS. BASOPHILS 0.04 0.01 - 0.08 x10'3/uL 06/30/2023 2:39 PM HEATER OPERATOR [facility] ABS. IMMATURE GRANULOCYTES 0.12 0.00 - 0.49 x10'3/uL 06/30/2023 2:39 PM HEATER OPERATOR [facility] 06/30/2023 2:25 PM HEATER OPERATOR [facility] Final Resu lt [facility] [address] [place] [address], [place] [phone] documented in this encounter Visit Diagnoses Diagnosis Cannabis hyperemesis syndrome concurrent with and due to cannabis abuse (CMS/HCC [facility]/HCC)- Primary documented in this encounter Administered Medications Inactive Administered Medications - up to 3 most recent administrations Medication Order MAR Action Action Date Dose Rate Site capsaicin (ABSORBINE ARTHRITIS) 0.025 % cream Topical, Once, 1 dose, On 06/30/23 at 1400, Apply to abdomen Given 06/30/2023 3:15 PM HEATER OPERATOR diphenhydrAMINE (BENADRYL) injection 50 mg 50 mg, Intravenous, Once, 1 dose, On 06/30/23 at 1430, For IV administration, give no faster than 25 mg/min. Given 06/30/2023 2:43 PM HEATER OPERATOR 50 mg haloperidol lactate (HALDOL) injection 5 mg 5 mg, Intravenous, Once, 1 dose, On 06/30/23 at 1430, IF giving IV, do not give faster than 5 mg/min IV; observe for hypotension. Given 06/30/2023 2:43 PM HEATER OPERATOR 5 mg metoclopramide (REGLAN) injection 10 mg 10 mg, Intravenous, Once, 1 dose, On 06/30/23 at 1700, Administer IV over 1-2 minutes Given 06/30/2023 5:20 PM HEATER OPERATOR 10 mg ondansetron (ZOFRAN) injection 4 mg 4 mg, Intravenous, Once, 1 dose, On 06/30/23 at 1430, IV push over 2-5 minutes. Given 06/30/2023 2:35 PM HEATER OPERATOR 4 mg sodium chloride 0.9% bolus infusion 1,000 mL 1,000 mL, Intravenous, Administer over 15 Minutes, Bolus (Once), 1 dose, On 06/30/23 at 1400 New Bag 06/30/2023 2:35 PM HEATER OPERATOR 1,000 mLs documented in this encounter Active and Recently Administered Medications Times are shown in HEATER OPERATOR. Scheduled Medication Order 06/28/2023 06/29/2023 06/30/2023 capsaicin (ABSORBINE ARTHRITIS) 0.025 % cream (COMPLETED) Topical, Once, 1 dose, On 06/30/23 at 1400, Apply to abdomen 1515 (Given - Provid er: Nhi Rosa RN) diphenhydrAMINE (BENADRYL) injection 50 mg (COMPLETED) 50 mg, Intravenous, Once, 1 dose, On 06/30/23 at 1430, For IV administration, give no faster than 25 mg/min. 1443 (Given - Provid er: Nhi Rosa RN) haloperidol lactate (HALDOL) injection 5 mg (COMPLETED) 5 mg, Intravenous, Once, 1 dose, On 06/30/23 at 1430, IF giving IV, do not give faster than 5 mg/min IV; observe for hypotension. 1443 (Given - Provid er: Nhi Rosa RN) metoclopramide (REGLAN) injection 10 mg (COMPLETED) 10 mg, Intravenous, Once, 1 dose, On 06/30/23 at 1700, Administer IV over 1-2 minutes 1720 (Given - Provid er: Nhi Rosa RN) ondansetron (ZOFRAN) injection 4 mg (COMPLETED) 4 mg, Intravenous, Once, 1 dose, On 06/30/23 at 1430, IV push over 2-5 minutes. 1435 (Given - Provid er: Nhi Rosa RN) sodium chloride 0.9% bolus infusion 1,000 mL (COMPLETED) 1,000 mL, Intravenous, Administer over 15 Minutes, Bolus (Once), 1 dose, On 06/30/23 at 1400 1435 (New Bag - Prov ider: Nhi Rosa RN)1544 (Infusion Stop Time - Provider: Nhi Rosa RN) documented in this encounter Care Teams High School Guidance Counselor Relationship Specialty Start Date End Date Lesli Griffith MD PCP - General FAMILY PRACTICE 11/30/21 documented as of this encounter
--- OUTSIDE RECORDS SUMMARY | 2024-05-26 02:40 | XMS_ITS | Encounter Summary ---
Author Organization [facility] Address [address] [place] [address]. [place], [place] [id number] [place] [id number] Care Team Providers Care Ship Boss Name Role Phone Osbaldo Hong MD Primary Care Provider Unav ailable Encounter Details Date Type Department Care Team (Latest Contact Info) Description 08/26/2023 Scan [facility] INFO SRVCS Scanned, Doc [...] on filedocumented in this encounter Care Teams Ship Boss Relationship Specialty Start Date End Date Osbaldo Hong MD PCP - General FAMILY PRACTICE 11/30/21 documented as of this encounter
--- OUTSIDE RECORDS SUMMARY | 2024-05-26 02:40 | XMS_ITS | Encounter Summary ---
Author Organization [facility] Address [address] [place] [address]. [place], [place] [id number] [place] [address] Care Team Providers Care Hospitality Associate Name Role Phone Osbaldo Hong MD Primary Care Provider Unav ailable Encounter Details Date Type Department Care Team (Latest Contact Info) Description 10/15/2023 Travel Social History Tobacco Use Types Packs/Day Years [...] on filedocumented in this encounter Care Teams Hospitality Associate Relationship Specialty Start Date End Date Osbaldo Hong MD PCP - General FAMILY PRACTICE 11/30/21 documented as of this encounter
--- OUTSIDE RECORDS SUMMARY | 2024-05-26 02:40 | XMS_ITS | Encounter Summary ---
Author Organization [facility] Address [address] [place] [address]. [place], [place] [id number] [place] [address] Care Team Providers Care Dermatology Physician Assistant Name Role Phone Osbaldo Hong MD Primary Care Provider Unav ailable Encounter Details Date Type Department Care Team (Latest Contact Info) Description 11/14/2023 Scan [facility] INFO SRVCS Scanned, Doc [...] on filedocumented in this encounter Care Teams Dermatology Physician Assistant Relationship Specialty Start Date End Date Osbaldo Hong MD PCP - General FAMILY PRACTICE 11/30/21 documented as of this encounter
--- OUTSIDE RECORDS SUMMARY | 2024-05-26 02:40 | XMS_ITS | Encounter Summary ---
Author Organization [facility] Address [address] [place] [address]. [place], [place] [id number] [place] [address] Care Team Providers Care Liquefied Natural Gas Operator Name Role Phone Osbaldo Hong MD Primary Care Provider Unav ailable Encounter Details Date Type Department Care Team (Latest Contact Info) Description 06/30/2023 Travel Social History Tobacco Use Types Packs/Day [...] on filedocumented in this encounter Care Teams Liquefied Natural Gas Operator Relationship Specialty Start Date End Date Osbaldo Hong MD PCP - General FAMILY PRACTICE 11/30/21 documented as of this encounter
--- OUTSIDE RECORDS SUMMARY | 2024-05-26 02:40 | XMS_ITS | Encounter Summary ---
Author Organization [facility] Address [address] [place] [address]. [place], [place] [id number] [place] [id number] Care Team Providers Care Hand Grinder Name Role Phone Osbaldo Hong MD Primary Care Provider Unav ailable Encounter Details Date Type Department Care Team (Latest Contact Info) Description 06/30/2023 Scan [facility] INFO SRVCS Scanned, Doc [...] on filedocumented in this encounter Care Teams Hand Grinder Relationship Specialty Start Date End Date Osbaldo Hong MD PCP - General FAMILY PRACTICE 11/30/21 documented as of this encounter
--- OUTSIDE RECORDS SUMMARY | 2024-05-26 02:40 | XMS_ITS | Encounter Summary ---
Author Organization [facility] Address [address] [place] [address]. [place], [place] [address] [place] [address] Care Team Providers Care Etched Circuit Processor Name Role Phone Osbaldo Hong MD Primary Care Provider Unav ailable Reason for Visit * Reason Comments Pathology (SCAN) Encounter Details Date Type Department Care Team ([facility] Contact Info) Description 01/02/2024 Scan HEALTH INFO SRVCS Scanned, Doc Med Group Pathology (SCAN) Social History Tobacco Use Types Packs/Day [...] Procedure Name Priority Date/Time Associated Diagnosis Comments PATHOLOGY GENERIC (SCAN ORDER) 01/02/2024 documented in this encounter Results * PATHOLOGY GENERIC (SCAN ORDER) (01/02/2024) 01/02/2024 us Doc Med Group Scanned SCANNING Final Resu lt documented in this encounter Visit Diagnoses Not on filedocumented in this encounter Care Teams Etched Circuit Processor Relationship Specialty Start Date End Date Osbaldo Hong MD PCP - General FAMILY PRACTICE 11/30/21 documented as of this encounter
--- OUTSIDE RECORDS SUMMARY | 2024-05-26 02:40 | XMS_ITS | Encounter Summary ---
Author Organization [facility] Address [address] [place] [address]. [place], [place] [address] [place] [address] Care Team Providers Care Manager Mobile Name Role Phone Osbaldo Hong MD Primary Care Provider Unav ailable Reason for Visit * Reason Comments Withdrawal- Drug Vomiting Encounter Details Date Type Department Care Team (Late st Contact Info) Description 10/15/2023 5:06 PM CDT - 10/15/2023 9:43 PM CDT Emergency [facility] [place] [address] Kisha Cortez MD [address] [place] [address] Withdrawal- Drug; Vomiting Discharge Disposition: Home or Self Care [...] Mass Index 41.56 10/15/2023 4:50 PM CDT documented in this encounter Discharge Instructions * Attachments The following attachments cannot be sent through Care Everywhere. * Nausea and Vomiting Discharge Instructions, Adult (Turkmen) documented in this encounter Medications at Time of Discharge ondansetron (ZOFRAN) 4 MG tablet Take 1 tablet (4 mg total) by mouth every 8 (eight) hours as needed for Nausea. 20 tablet 10/15/2023 ondansetron (ZOFRAN-ODT) 4 MG disintegrating tablet Take 1 tablet (4 mg total) by mouth every 8 (eight) hours as needed for Nausea. 20 tablet 10/04/2022 documented as of this encounter ED Notes * Madison Cline RN - 10/15/2023 9:42 PM CDT Patient examined by provider prior to nurse discharge. Please see provider documentation. RN only discharged the patient. Discharge instructions reviewed with patient. No further questions. IV removed. No s/s distress. Ambulatory out of ED. * Nida Gonzalez RN - 10/15/2023 7:45 PM CDT Patient reports that his last dose of drugs was yesterday at 1100. * Ju Miranda RN - 10/15/2023 6:20 PM CDT Bed: 03A Expected date: Expected time: Means of arrival: Comments: Stone * Kisha Cortez MD - 10/15/2023 5:14 PM CDT Chief Complaint Chief Complaint Patient presents with Withdrawal- Drug Vomiting History of Present Illness 23y M here with c/o nausea and vomiting. Has associated abd disomfort. Reports he has been using anunknown drug. He denies alcohol use. Medical History ALLERGIES: Review of patient's allergies indicates: No Known Allergies MEDICATIONS: Prior to Admission medications Medication Sig Start Date End Date Taking? Authorizing Provider ondansetron (ZOFRAN) 4 MG tablet Take 1 tablet (4 mg total) by mouth every 8 (eight) hours as needed for Nausea. 10/15/23 Yes Kisha Cortez MD ondansetron (ZOFRAN-ODT) 4 MG disintegrating tablet Take [...] Never Smokeless tobacco: Never Vaping Use Vaping status: Never Used Substance Use Topics Alcohol use: Not Currently Drug use: Yes Types: Marijuana, Fentanyl Review of Systems Review of Systems Gastrointestinal: Positive for abdominal pain, nausea and vomiting. Physical Exam Filed Vitals: 10/15/23 1650 10/15/23 1930 10/15/232049 BP: (!) 145/73 137/83 (!) 148/72 Pulse: (!) 55 61 68 Resp: 18 20 17 Temp: 97.6 ??F (36.4 ??C) TempSrc: Oral SpO2: 100% 99% Weight: (!) 142.9 kg (315 lb) Height: 1.854 m (6' 1 ) Physical Exam Vitals and nursing note reviewed. Constitutional: Appearance: He is not toxic-appearing. HENT: Head: Normocephalic. Nose: Nose normal. Eyes: General: No scleral icterus. Conjunctiva/sclera: Conjunctivae normal. Cardiovascular: Rate and Rhythm: Normal rate and regular rhythm. Heart sounds: Normal heart sounds. Pulmonary: Effort: Pulmonary effort is normal. Breath sounds: Normal breath sounds. Abdominal: Palpations: Abdomen is soft. Tenderness: There is no abdominal tenderness. Musculoskeletal: General: No swelling. Cervical back: Neck supple. Skin: General: Skin is warm and dry. Coloration: Skin is not jaundiced. Neurological: Mental Status: He is alert. Diagnostic Studies / Procedures ELECTROCARDIOGRAMS: No results found for this visit on 10/15/23. LABORATORY STUDIES: Results for orders placed or performed during the hospital encounter of 10/15/23 CBC W/DIFF AUTOMATED Result Value Ref Range WBC 11.60 (H) 4.5 - 11.0 x10'3/uL RBC 5.47 4.70 - 6.10 x10'6/uL HGB 15.3 14.0 - 18.0 G/DL HCT 48.1 43.0 - 54.0 % MCV 87.9 80.0 - 94.0 FL MCH 28.0 27.0 - 31.0 PG MCHC 31.8 (L) 32.0 - 36.0 G/DL RDW 12.5 11.5 - 14.5 % PLT 240 130 - 400 x10'3/uL MPV 11.0 9.3 - 12.2 FL DIFFERENTIAL TYPE AUTOMATED DIFFERENTIAL NEUTROPHILS 91.2 % LYMPHOCYTES 6.6 % MONOCYTES 1.6 % EOSINOPHILS 0.0 % BASOPHILS 0.1 % IMMATURE GRANS 0.5 % ABS. NEUTROPHILS 10.57 (H) 1.80 - 7.70 x10'3/uL ABS. LYMPHOCYTES 0.77 (L) 1.00 - 4.80 x10'3/uL ABS. MONOCYTES 0.19 (L) 0.30 - 0.82 x10'3/uL ABS. EOSINOPHILS 0.00 (L) 0.04 - 0.54 x10'3/uL ABS. BASOPHILS 0.01 0.01 - 0.08 x10'3/uL ABS. IMMATURE GRANULOCYTES 0.06 0.00 - 0.49 x10'3/uL COMPREHENSIVE METABOLIC PANEL Result Value Ref Range GLUCOSE 128 (H) 70 - 99 MG/DL BUN 12 7 - 18 MG/DL CREATININE S/P/B 0.84 0.7 - 1.3 MG/DL SODIUM S/P/B 138 136 - 145 MMOL/L POTASSIUM S/P/B 4.2 3.5 - 5.1 MMOL/L CHLORIDE S/P/B 108 100 - 108 MMOL/L CO2 24.4 21 - 32 MMOL/L CALCIUM S/P/B 9.9 8.5 - 10.1 MG/DL BILIRUBIN TOTAL S/P/B 1.3 (H) 0.2 - 1.2 MG/DL TOTAL PROTEIN S/P/B 7.9 6.4 - 8.2 G/DL ALBUMIN S/P/B 4.0 3.4 - 5.0 G/DL AST 41 (H) 15 - 37 U/L ALT 50 16 - 60 U/L ALKALINE PHOSPHATASE S/P/B 87 50 - 136 U/L ANION GAP 5.6 5 - 15 MMOL/L BUN CREATININE RATIO 14.3 6 - 26 A/G RATIO 1.0 1.0 - 2.0 RATIO GFR ESTIMATE >90 >90 ML/MIN/1.73 M2 LIPASE Result Value Ref Range LIPASE 15 13 - 75 UNITS/L DRUG SCREEN RAPID Result Value Ref Range AMPHETAMINE (U) NEGATIVE NEGATIVE BARBITURATES SCREEN (U) NEGATIVE NEGATIVE BENZODIAZEPINES SCREEN (U) NEGATIVE NEGATIVE CANNABINOIDS SCREEN (U) POSITIVE (A) NEGATIVE COCAINE METABOLITES (U) NEGATIVE NEGATIVE METHADONE (U) NEGATIVE NEGATIVE OPIATE SCREEN (U) NEGATIVE NEGATIVE PHENCYCLIDINE PCP (U) NEGATIVE NEGATIVE CREATININE (U) 190.0 39 - 259 MG/DL IMAGING STUDIES No orders to display ED Course / Medical Decision Making Medical Decision Making 20:07 - Pt persistently symptomatic. CT scan ordered, however pt refused scan. Discussed purpose, risks and benefits of CT scan in detail. 21:28 - Pt reports he feel's improved, will d/c at this time Problems Addressed: Abdominal pain, unspecified abdominal location: acute illness or injury Nausea and vomiting, unspecified vomiting type: acute illness or injury Amount and/or Complexity of Data Reviewed Labs: ordered. Decision-making details documented in ED Course. Radiology: ordered. Details: Pt refused Risk Prescription drug management. Clinical Impression Abdominal pain, unspecified abdominal location (Primary) Nausea and vomiting, unspecified vomiting type Disposition: Discharge Kisha Cotrez MD 10/15/23 2216 * SUSAN Johnson - 10/15/2023 5:05 PM CDT [place], [place] EMERGENCY DEPARTMENT ENCOUNTER Medical Screening Examination 10/15/23 5:05 PM Chief Complaint : Withdrawal- Drug HPI : Aj Lunsford is a 23-year-old male who presents for withdrawal from ?fentanyl. Took a blue pill off the street that he though was percocet.c/o of generalized abdominal pain from excessive vomiting. Denies source of bleed. Vital Signs: Filed Vitals: 10/15/23 1650 BP: (!) 145/73 Pulse: (!) 55 Resp: 18 Temp: 97.6 ??F (36.4 ??C) TempSrc: Oral SpO2: 100% Weight: (!) 142.9 kg (315 lb) Height: 1.854 m (6' 1 ) Physical exam: A brief physical exam was completed to facilitate/expedite patient care. Looney findings include: soft abdomen, generalized abdominal pain Plan: Labs were ordered to facilitate patient care., Antiemetics were ordered to faciliate patient care., and IV fluids SUSAN JOHNSON 10/15/2023 SUSAN Johnson 10/15/23 1707 Cosigned by Alvaro Weiss MD at 10/15/2023 8:58 PM CDT * Patricia Johnson RN - 10/15/2023 5:01 PM CDT Patient reports he is withdrawling from fentanyl. Patient last used yesterday. Patient reports he is unsure of what was in the pills but bought blue pills off the streets and was taking them for ab2 weeks, patient reports he thought he was buying percocet's. Pt reports n/v and shakey . documented in this encounter Plan of Treatment Not on file documented as of this encounter Procedures Procedure Name Priority Date/Time Associated Diagnosis Comments DRUG SCREEN RAPID STAT 10/15/2023 6:5 8 PM CDT COMPREHENSIVE METABOLIC PANEL STAT 10/15/2023 5:24 PM CDT CBC W/DIFF AUTOMATED STAT 10/15/2023 5:24 PM CDT LIPASE STAT 10/15/2023 5:24 PM CDT documented in this encounter Results * (ABNORMAL) DRUG SCREEN RAPID (10/15/2023 6:58 PM CDT) Pathologist [facility] AMPHETAMINE (U) NEGATIVE NEGATIVE 7:38 PM CDT [facility] BARBITURATES SCREEN (U) NEGATIVE NEGATIVE 10/15/2023 7:38 PM CDT [facility] BENZODIAZEPINES SCREEN (U) NEGATIVE NEGATIVE 10/15/2023 7:38 PM CDT [facility] CANNABINOIDS SCREEN (U) POSITIVE(A) NEGATIVE 10/15/2023 7:38 PM CDT [facility] COCAINE METABOLITES (U) NEGATIVE NEGATIVE 10/15/2023 7:38 PM CDT [facility] METHADONE (U) NEGATIVE NEGATIVE 10/15/2023 7:38 PM CDT [facility] OPIATE SCREEN (U) NEGATIVE NEGATIVE 024 7:38 PM CDT [facility] PHENCYCLIDINE PCP (U) NEGATIVE NEGATIVE 10/15/2023 7:38 PM CDT [facility] Comment: NOTE: RESULTS OF THIS DRUG SCREEN SHOULD BE USED FOR MEDICAL PURPOSES ONLY AND NOT FOR LEGAL OR EMPLOYMENT PURPOSES. POSITIVE RESULTS ARE NOT CONFIRMED. MEDICATIONS CONTAINING EPHEDRINE MAY CAUSE FALSE POSITIVE AMPHETAMINE CALL [phone], LAB, TO REQUEST CONFIRMATION TESTING. IF CREATININE IS <40 mg/dL. ??RECOLLECTION IS SUGGESTED. AMPHETAMINE- ?500 NG/ML BARBITURATE- ?200 NG/ML BENZODIAZEPINES- ??200 NG/ML THC- ? 50 NG/ML COCAINE- ?150 NG/ML METHADONE- ?300 NG/ML OPIATE- ? 300 MG/ML PCP- ? 25 NG/ML CREATININE (U) 190.0 39 - 259 MG/DL 10/15/2023 7:38 PM CDT [facility] URINE SPECIMEN / Unknown 10/15/2023 6:58 PM CDT Monik DAVIS URINE ORDERABLES Final Result Performing Organization Address City/[facility]/ZIP Co de Phone Number [facility] [address] [place] [address], * LIPASE (10/15/2023 5:24 PM CDT) LIPASE 15 13 - 75 UNITS/L 10/15/2023 6:19 PM CDT [facility] 10/15/2023 5:24 PM CDT [facility] LABORATORY Final Result Performing Organization Address City/[facility]/ZIP Co de Phone Number [facility] [address] [place] [address], * (ABNORMAL) COMPREHENSIVE METABOLIC PANEL (10/15/2023 5:24 PM CDT) GLUCOSE 128(H) 70 - 99 MG/DL 10/15/2023 6:19 PM CDT [facility] BUN 12 7 - 18 MG/DL 10/15/2023 6:19 PM CDT [facility] CREATININE S/P/B 0.84 0.7 - 1.3 MG/DL 10/15/2023 6:19 PM CDT [facility] SODIUM S/P/B 138 136 - 145 MMOL/L 10/15/2023 6:19 PM CDT [facility] POTASSIUM S/P/B 4.2 3.5 - 5.1 MMOL/L 10/15/2023 6:19 PM CDT [facility] CHLORIDE S/P/B 108 100 - 108 MMOL/L 10/15/2023 6:19 PM CDT [facility] CO2 24.4 21 - 32 MMOL/L 10/15/2023 6:19 PM CDT [facility] CALCIUM S/P/B 9.9 8.5 - 10.1 MG/DL 10/15/2023 6:19 PM CDT [facility] BILIRUBIN TOTAL S/P/B 1.3(H) 0.2 - 1.2 MG/DL 10/15/2023 6:19 PM CDT [facility] Comment: THIS ASSAY IS NOT RECOMMENDED FOR PATIENTS UNDERGOING TREATMENT WITH ELTROMBOPAG DUE TO THE POTENTIAL FOR FALSELY ELEVATED RESULTS. TOTAL PROTEIN S/P/B 7.9 6.4 - 8.2 G/DL 10/15/2023 6:19 PM CDT [facility] ALBUMIN S/P/B 4.0 3.4 - 5.0 G/DL 10/15/2023 6:19 PM CDT [facility] AST 41(H) 15 - 37 U/L 10/15/2023 6:19 PM CDT [facility] ALT 50 16 - 60 U/L 10/15/2023 6:19 PM CDT [facility] ALKALINE PHOSPHATASE S/P/B 87 50 - 136 U/L 10/15/2023 6:19 PM CDT [facility] ANION GAP 5.6 5 - 15 MMOL/L 10/15/2023 6:19 PM CDT [facility] BUN CREATININE RATIO 14.3 6 - 26 10/15/2023 6:19 PM CDT [facility] A/G RATIO 1.0 1.0 - 2.0 RATIO 10/15/2023 6:19 PM CDT [facility] GFR ESTIMATE >90 >90 ML/MIN/1.7 3 M2 10/15/2023 6:19 PM CDT [facility] Comment: NOTE: eGFR is not calculated for patients <18 years of age. This is an estimated GFR calculation using the new CKD EPI creatinine equation without race and so does not require a correction factor for race. This estimated GFR should not be used for calculating drug doses. 10/15/2023 5:24 PM CDT [facility] LABORAT[facility] Final Result [facility] [address] [place] [address], * (ABNORMAL) CBC W/DIFF AUTOMATED (10/15/2023 5:24 PM CDT) WBC 11.60(H) 4.5 - 11.0 x10'3/uL 10/15/2023 5:40 PM CDT [facility] RBC 5.47 4.70 - 6.10 x10'6/uL 10/15/2023 5:40 PM CDT [facility] HGB 15.3 14.0 - 18.0 G/DL 10/15/2023 5:40 PM CDT [facility] HCT 48.1 43.0 - 54.0 % 10/15/2023 5:40 PM CDT [facility] MCV 87.9 80.0 - 94.0 FL 10/15/2023 5:40 PM CDT [facility] MCH 28.0 27.0 - 31.0 PG 10/15/2023 5:40 PM CDT [facility] MCHC 31.8(L) 32.0 - 36.0 G/DL 10/15/2023 5:40 PM CDT [facility] RDW 12.5 11.5 - 14.5 % 10/15/2023 5:40 PM CDT [facility] PLT 240 130 - 400 x10'3/uL 10/15/2023 5:40 PM CDT [facility] MPV 11.0 9.3 - 12.2 FL 10/15/2023 5:40 PM CDT [facility] DIFFERENTIAL TYPE AUTOMATED DIFFERENTIAL 10/15/2023 5:40 PM CDT [facility] NEUTROPHILS % 91.2 % 10/15/2023 5:40 PM CDT [facility] LYMPHOCYTES % 6.6 % 10/15/2023 5:40 PM CDT [facility] MONOCYTES % 1.6 % 10/15/2023 5:40 PM CDT [facility] EOSINOPHILS 0.0 % 10/15/2023 5:40 PM CDT [facility] BASOPHILS 0.1 % 10/15/2023 5:40 PM CDT [facility] IMMATURE GRANS % 0.5 % 10/15/19 5:40 PM CDT [facility] ABS. NEUTROPHILS 10.57(H) 1.80 - 7.70 x10'3/uL 10/15/2023 5:40 PM CDT [facility] ABS. LYMPHOCYTES 0.77(L) 1.00 - 4.80 x10'3/uL 10/15/2023 5:40 PM CDT [facility] ABS. MONOCYTES 0.19(L) 0.30 - 0.82 x10'3/uL 10/15/2023 5:40 PM CDT [facility] ABS. EOSINOPHILS 0.00(L) 0.04 - 0.54 x10'3/uL 10/15/2023 5:40 PM CDT [facility] ABS. BASOPHILS 0.01 0.01 - 0.08 x10'3/uL 10/15/2023 5:40 PM CDT [facility] ABS. IMMATURE GRANULOCYTES 0.06 0.00 - 0.49 x10'3/uL 10/15/2023 5:40 PM CDT [facility] 10/15/2023 5:24 PM CDT [facility] Final Result [facility] [address] [place] [address], documented in this encounter Visit Diagnoses Diagnosis Abdominal pain, unspecified abdominal location- Primary Nausea and vomiting, unspecified vomiting type documented in this encounter Administered Medications Inactive Administered Medications - up to 3 most recent administrations Medication Order MAR Action Action Date Dose Rate Site ketorolac (TORADOL) injection 15 mg 15 mg, Intravenous, Once, 1 dose, On Sat10/15/23 at 1915, For IV administration, give over 15 seconds. Given 10/15/2023 7:24 PM CDT 15 mg maalox plus-lidocaine viscous (GI COCKTAIL PLAIN) 45 mL suspension Oral, Once, 1 dose, On Sat10/15/23 at 2015 Given 10/15/2023 8:50 PM CDT metoclopramide (REGLAN) injection 10 mg 10 mg, Intravenous, Once, 1 dose, On Sat10/15/23 at 2000, Administer IV over 1-2 minutes Given 10/15/2023 8:47 PM CDT 10 mg ondansetron (ZOFRAN) injection 4 mg 4 mg, Intravenous, Once, 1 dose, On Sat10/15/23 at 1715, IV push over 2-5 minutes. Given 10/15/2023 5:32 PM CDT 4 mg sodium chloride 0.9% bolus infusion 1,000 mL 1,000 mL, Intravenous, Administer over 60 Minutes, Once, 1 dose, On Sat10/15/23 at 1715 New Bag 10/15/2023 5:32 PM CDT 1,000 mLs documented in this encounter Active and Recently Administered Medications Times are shown in CDT. Scheduled Medication Order 10/13/2023 10/14/2023 10/15/2023 ketorolac (TORADOL) injection 15 mg (COMPLETED) 15 mg, Intravenous, Once, 1 dose, On Sat10/15/23 at 1915, For IV administration, give over 15 seconds. 1923 (Given - Provid er: Nida Gonzalez RN) maalox plus-lidocaine viscous (GI COCKTAIL PLAIN) 45 mL suspension (COMPLETED) Oral, Once, 1 dose, On Sat10/15/23 at 2014 2049 (Given - Provid er: Madison Cline RN) metoclopramide (REGLAN) injection 10 mg (COMPLETED) 10 mg, Intravenous, Once, 1 dose, On Sat10/15/23 at 1999, Administer IV over 1-2 minutes 2046 (Given - Provid er: Madison Cline RN) ondansetron (ZOFRAN) injection 4 mg (COMPLETED) 4 mg, Intravenous, Once, 1 dose, On Sat10/15/23 at 1715, IV push over 2-5 minutes. 1731 (Given - Provid er: Delbert Hernandes RN) sodium chloride 0.9% bolus infusion 1,000 mL (COMPLETED) 1,000 mL, Intravenous, Administer over 60 Minutes, Once, 1 dose, On Sat10/15/23 at 1715 173 (New Bag - Prov ider: Delbert Hernandes RN)1852 (Infusion Stop Time - Provider: Sonali Foster, Nurse Director Oracle Database II) documented in this encounter Care Teams Manager Mobile Relationship Specialty Start Date End Date Osbaldo Hong MD PCP - General FAMILY PRACTICE 11/30/21 documented as of this encounter
--- OUTSIDE RECORDS SUMMARY | 2024-05-26 02:41 | XMS_ITS | Encounter Summary ---
Author Organization [facility] Address [address] [place] [address]. [place] [address] [place] [address] Care Team Providers Care Firer Electric Locomotive Name Role Phone Osbaldo Hong MD Primary Care Provider Soumya Sandhu PA-C Primary Care Provider [phone]- [phone] Encounter Details Date Type Department Care Team (Latest Contact Info) Description 09/28/2020 Scan HEALTH INFO SRVCS Scanned, Documents Social History Tobacco Use Types Packs/Day Years Used Date Smoking Tobacco: Never Smokeless Tobacco: Never Alcohol Use Standard Drinks/Week Comments Never 0 (1 standard drink = 0.6 oz [...] on filedocumented in this encounter Care Teams Firer Electric Locomotive Relationship Specialty Start Date End Date Osbaldo Hong MD PCP - General FAMILY PRACTICE 01/04/20 06/25/21 Soumya Franks PA-C [address] [place] [address] PCP - General PHYSICIAN ADDRESSING MACHINE OPERATOR 06/26/21 07/03/21 documented as of this encounter
--- OUTSIDE RECORDS SUMMARY | 2024-05-26 02:41 | XMS_ITS | Encounter Summary ---
Author Organization [facility] Address [address] [place] [address]. [place] [address] [place] [address] Care Team Providers Care Line Leader Name Role Phone Soumya Franks PA-C Primary Care Provider [phone]- [phone] Reason for Visit * Reason Onset Date Comments Error 07/05/2021 Encounter Details Date Type Department Care Team (Late st Contact Info) Description 07/05/2021 Telephone [facility] Family Medicine - Central [address] [place] [id number] Soumya Franks PA-C [address] [place] [address] Error Social History Tobacco Use Types Packs/Day Years [...] on file Sexual Orientation Not on file COVID-19 Exposure Response Date Recorded In the last 10 days, have yo u been in contact with someone who was confirmed or suspected to have Coronavirus/COVID-19? No / Unsure 07/05/2021 2:13 PM PUBLIC SERVICE DIRECTOR documented as of this encounter Plan of Treatment Not on file documented as of this encounter Visit Diagnoses Not on filedocumented in this encounter Care Teams Line Leader Relationship Specialty Start Date End Date Soumya Franks PA-C [address] [place] [address] PCP - General PHYSICIAN HELP DESK MANAGER 07/05/21 11/29/21 documented as of this encounter
--- OUTSIDE RECORDS SUMMARY | 2024-05-26 02:41 | XMS_ITS | Encounter Summary ---
Author Organization [facility] Address [address] [place] [address]. [place], [place] [address] [place] [address] Care Team Providers Care Regulatory Specialist Name Role Phone Osbaldo Hong MD Primary Care Provider Unav ailable Reason for Visit * Reason Comments CT (SCAN) Encounter Details Date Type Department Care Team (Latest Contact Info) Description 07/12/2022 Scan [facility] HEALTH INFO SRVCS Scanned, Doc Med Group CT (SCAN) Social History Tobacco Use Types Packs/Day [...] Procedure Name Priority Date/Time Associated Diagnosis Comments CT GENERIC 07/12/2022 documented in this encounter Results * CT GENERIC (07/12/2022) Anatomical Region Laterality Modality Other 07/12/2022 us Doc Med Group Scanned SCANNING Final Resu lt documented in this encounter Visit Diagnoses Not on filedocumented in this encounter Care Teams Regulatory Specialist Relationship Specialty Start Date End Date Osbaldo Hong MD PCP - General FAMILY PRACTICE 11/30/21 documented as of this encounter
--- OUTSIDE RECORDS SUMMARY | 2024-05-26 02:41 | XMS_ITS | Encounter Summary ---
Author Organization [facility] Address [address] [place] [address]. [place], [place] [address] [place] [address] Care Team Providers Care Stripper And Printer Name Role Phone Osbaldo Hong MD Primary Care Provider Soumya Sandhu PA-C Primary Care Provider [phone]- [phone] Reason for Visit * Reason Comments Lab (SCAN) Encounter Details Date Type Department Care Team (Latest Contact Info) Description 10/17/2020 Scan HEALTH INFO SRVCS Scanned, Documents Lab (SCAN) Social History Tobacco Use Types [...] Associated Diagnosis Comments OUTSIDE LAB (SCAN ORDER) 10/17/2020 documented in this encounter Results * OUTSIDE LAB (SCAN) (10/17/2020) 10/17/2020 Narrative 10/17/2020 Ordered by an unspecified provider. us Documents Scanned SCANNING Final Result documented in this encounter Visit Diagnoses Not on filedocumented in this encounter Care Teams Stripper And Printer Relationship Specialty Start Date End Date Osbaldo Hong MD PCP - General FAMILY PRACTICE 01/04/20 06/25/21 Soumya Franks PA-C [address] [place] [address] PCP - General PHYSICIAN RABBIT FANCIER 06/26/21 07/03/21 documented as of this encounter
--- OUTSIDE RECORDS SUMMARY | 2024-05-26 02:41 | XMS_ITS | Encounter Summary ---
Author Organization [facility] Address [address] [place] [address]. [place], [place] [id number] [place] [address] Care Team Providers Care Cam Specialist Name Role Phone Osbaldo Hong MD Primary Care Provider Unav ailable Reason for Visit * Reason Comments Lab (SCAN) Encounter Details Date Type Department Care Team (Latest Contact Info) Description 01/23/2022 Scan [facility] SRVCS Scanned, Documents Lab (SCAN) [...] suspected to have Coronavirus/COVID-19? No / Unsure 01/07/2022 10:57 PM CDT documented as of this encounter Plan of Treatment Not on file documented as of this encounter Procedures Procedure Name Priority Date/Time Associated Diagnosis Comments OUTSIDE LAB (SCAN ORDER) 01/23/2022 OUTSIDE LAB (SCAN ORDER) 01/23/2022 OUTSIDE LAB (SCAN ORDER) 01/23/2022 OUTSIDE LAB (SCAN ORDER) 01/23/2022 documented in this encounter Results * OUTSIDE LAB (SCAN) (01/23/2022) 01/23/2022 Narrative 01/23/2022 Ordered by an unspecified provider. us Documents Scanned SCANNING Final Result * OUTSIDE LAB (SCAN) (01/23/2022) 01/23/2022 Narrative 01/23/2022 Ordered by an unspecified provider. us Documents Scanned SCANNING Final Result * OUTSIDE LAB (SCAN) (01/23/2022) 01/23/2022 Narrative 01/23/2022 Ordered by an unspecified provider. us Documents Scanned SCANNING Final Result * OUTSIDE LAB (SCAN) (01/23/2022) 01/23/2022 Narrative 01/23/2022 Ordered by an unspecified provider. us Documents Scanned SCANNING Final Result documented in this encounter Visit Diagnoses Not on filedocumented in this encounter Care Teams Cam Specialist Relationship Specialty Start Date End Date Osbaldo Hong MD PCP - General FAMILY PRACTICE 11/30/21 documented as of this encounter
--- OUTSIDE RECORDS SUMMARY | 2024-05-26 02:41 | XMS_ITS | Encounter Summary ---
Author Organization [facility] Address [address] [place] [address]. [place], [place] [address] [place] [address] Care Team Providers Care Gore Cutter Name Role Phone Osbaldo Hong MD Primary Care Provider Unav ailable Encounter Details Date Type Department Care Team (Latest Contact Info) Description 04/14/2021 Scan [facility] SRVCS Scanned, Documents Social History [...] on filedocumented in this encounter Care Teams Gore Cutter Relationship Specialty Start Date End Date Osbaldo Hong MD PCP - General FAMILY PRACTICE 01/04/20 06/25/21 documented as of this encounter
--- OUTSIDE RECORDS SUMMARY | 2024-05-26 02:41 | XMS_ITS | Encounter Summary ---
Author Organization [facility] Address [address] [place] [address]. [place], [place] [address] [place] [address] Care Team Providers Care Traffic Law Attorney Name Role Phone Osbaldo Hnog MD Primary Care Provider Unav ailable Encounter Details Date Type Department Care Team (Latest Contact Info) Description 01/04/2020 Travel Social History Tobacco Use Types Packs/Day [...] Exposure Response Date Recorded In the last month, have you been in contact with someone who was confirmed or suspected to have Coronavirus / COVID-19? No / Unsure 01/04/2020 7:48 PM CDT documented as of this encounter Plan of Treatment Not on file documented as of this encounter Visit Diagnoses Not on filedocumented in this encounter Care Teams Traffic Law Attorney Relationship Specialty Start Date End Date Osbaldo Hong MD PCP - General FAMILY PRACTICE 01/04/20 06/25/21 documented as of this encounter
--- OUTSIDE RECORDS SUMMARY | 2024-05-26 02:41 | XMS_ITS | Encounter Summary ---
Author Organization [facility] Address [address] [place] [address]. [place], [place] [id number] [place] [address] Care Team Providers Care Speech Professor Name Role Phone Osbaldo Hong MD Primary Care Provider Soumya Sandhu PA-C Primary Care Provider [phone]- [phone] Soumya Franks PA-C Primary Care Provider +1- [phone] Encounter Details Date Type Department Care Team (Latest Contact Info) Description 06/25/2021 Scan HEALTH INFO SRVCS Scanned, Documents Social [...] Coronavirus/COVID-19? No / Unsure 07/05/2021 2:13 PM EXECUTIVE DIRECTOR documented as of this encounter Plan of Treatment Not on file documented as of this encounter Visit Diagnoses Not on filedocumented in this encounter Care Teams Speech Professor Relationship Specialty Start Date End Date Osbaldo Hong MD PCP - General FAMILY PRACTICE 8/10/20 1/30/22 Soumya Franks PA-C [address] [place] [address] PCP - General PHYSICIAN METROLOGY ENGINEER 06/26/21 07/03/21 Soumya Franks PA-C [address] [place] [address] PCP - General PHYSICIAN METROLOGY ENGINEER 07/05/21 11/29/21 documented as of this encounter
--- OUTSIDE RECORDS SUMMARY | 2024-05-26 02:41 | XMS_ITS | Encounter Summary ---
Author Organization [facility] Address [address] [place] [address]. [place], [place] [address] [place] [address] Care Team Providers Care Ammonia Worker Name Role Phone Osbaldo Hong MD Primary Care Provider Soumya Sandhu PA-C Primary Care Provider [phone]- [phone] Reason for Visit * Reason Comments Pathology (SCAN) Colonoscopy Report (SCAN) Encounter Details Date Type Department Care Team ([facility] Contact Info) Description 03/09/2020 Scan HEALTH INFO SRVCS Scanned, Documents Pathology (SCAN); Colonoscopy Report (SCAN) Social History Tobacco Use Types Packs/Day [...] Associated Diagnosis Comments PATHOLOGY GENERIC (SCAN ORDER) 03/09/2020 COLONOSCOPY GENERIC (SCAN ORDER) 03/09/2020 documented in this encounter Results * PATHOLOGY GENERIC (03/09/2020) 03/09/2020 Narrative 03/09/2020 Ordered by an unspecified provider. us Documents Scanned SCANNING Final Result * COLONOSCOPY GENERIC (03/09/2020) 03/09/2020 Narrative 03/09/2020 Ordered by an unspecified provider. us Documents Scanned SCANNING Final Result documented in this encounter Visit Diagnoses Not on filedocumented in this encounter Care Teams Ammonia Worker Relationship Specialty Start Date End Date Osbaldo Hong MD PCP - General FAMILY PRACTICE 01/04/20 06/25/21 Soumya Franks PA-C [address] [place] [address] PCP - General PHYSICIAN PALEOBOTANIST 06/26/21 07/03/21 documented as of this encounter
--- OUTSIDE RECORDS SUMMARY | 2024-05-26 02:41 | XMS_ITS | Encounter Summary ---
Author Organization [facility] Address [address] [place] [address]. [place], [place] [id number] [place] [address] Care Team Providers Care Course Instructor Name Role Phone Osbaldo Hong MD Primary Care Provider Unav ailable Reason for Visit * Reason Comments Vomiting Encounter Details Date Type Department Care Team (Late st Contact Info) Description 10/04/2022 2:24 PM CDT - 10/04/2022 6:29 PM CDT Emergency [facility] Emergency Room [address] [place] [address] Clementina Vazquez MD [address] [place] [address] Vomiting Discharge Disposition: Home or Self Care [...] suspected to have Coronavirus/COVID-19? No / Unsure 10/04/2022 2:26 PM CDT documented as of this encounter Last Filed Vital Signs Vital Sign Reading Time Taken Comments Blood Pressure 135/87 10/04/2022 2:53 PM CDT Pulse 92 10/04/2022 2:53 PM CDT Temperature 36.1 ??C (97 ??F) 10/04/2022 2:53 PM CDT Respiratory Rate 16 10/04/2022 2:53 PM CDT Oxygen Saturation 98% 10/04/2022 2:53 PM CDT Inhaled Oxygen Concentration - - Weight 131.5 kg (290 lb) 10/04/2022 2:53 PM CDT Height 185.4 cm (6' 1 ) 10/04/2022 2:53 PM CDT Body Mass Index 38.26 10/04/2022 2:53 PM CDT documented in this encounter Discharge Instructions * Discharge Instructions* Clementina Vazquez MD - 10/04/2022 5:36 PM CDT Please avoid marijuana in all forms. Zofran or promethazine for nausea/vomiting. Return to ED if worse in any way * Attachments The following attachments cannot be sent through Care Everywhere. * Nausea and Vomiting Discharge Instructions, Adult (Kyrgyz) documented in this encounter Medications at Time of Discharge ondansetron (ZOFRAN-ODT) 4 MG disintegrating tablet Take 1 tablet (4 mg total) by mouth every 8 (eight) hours as needed for Nausea. 20 tablet 10/04/2022 promethazine (PROMETHEGAN) [address] 1 suppository (25 mg total) rectally every 6 (six) hours as needed for Nausea. 12 each 10/04/2022 10/12/19 documented as of this encounter ED Notes * Jasmyn Ward RN - 10/04/2022 3:55 PM CDT Patient given PO fluids for PO challenge * Jasmyn Ward RN - 10/04/2022 2:54 PM CDT Patient to ED with c/o vomiting, onset after smoking marijuana and eating edibles today. Has had vomiting r/t marijuana in the past. * Clementina Vazquez MD - 10/04/2022 2:27 PM CDT Chief Complaint Chief Complaint Patient presents with Vomiting History of Present Illness 22-year-old male presenting by EMS with complaints of nausea and vomiting in the setting of a history of GERD and cannabinoid induced hyperemesis syndrome. He states that he had quit using marijuana until about 2 weeks ago when his girlfriend broke up with him. He denies any suicidal or homicidal ideation. States that today he was fishing and had an edible and smoked some marijuana and then started having nausea and vomiting. Medical History ALLERGIES: Review of patient's allergies indicates: No Known Allergies MEDICATIONS: Prior to Admission medications Medication Sig Start Date End Date Taking? Authorizing Provider ondansetron (ZOFRAN-ODT) 4 MG disintegrating tablet Take 1 tablet (4 mg total) by mouth every 8 (eight) hours as needed for Nausea. 10/04/22 Yes Clementina Vazquez MD promethazine (PROMETHEGAN) [address] 1 suppository (25 mg total) rectally every 6 (six) hours as needed for Nausea. 10/04/22 10/11/22 Yes Clementina Vazquez MD PAST MEDICAL HISTORY: Past Medical History: [...] Topics Alcohol use: Not Currently Drug use: Not Currently Types: Marijuana Comment: Quit Marijuana last July Review of Systems Review of Systems Gastrointestinal: Positive for abdominal pain, nausea and vomiting. All other systems reviewed and are negative. Physical Exam Filed Vitals: 10/04/22 1453 BP: 135/87 Pulse: 92 Resp: 16 Temp: 97 ??F (36.1 ??C) TempSrc: Temporal SpO2: 98% Weight: 131.5 kg (290 lb) Height: 6' 1 (1.854 m) Physical Exam Vitals and nursing note reviewed. Constitutional: Comments: Holding emesis basin HENT: Head: Normocephalic and atraumatic. Right Ear: External ear normal. Left Ear: External ear normal. Mouth/Throat: Mouth: Mucous membranes are moist. Eyes: Conjunctiva/sclera: Conjunctivae normal. Cardiovascular: Rate and Rhythm: Normal rate and regular rhythm. Pulmonary: Effort: Pulmonary effort is normal. Breath sounds: Normal breath sounds. Abdominal: General: Bowel sounds are normal. Palpations: Abdomen is soft. Tenderness: There is no right CVA tenderness or left CVA tenderness. Comments: Mild diffuse abdominal tenderness. No guarding or rebound. Musculoskeletal: Cervical back: Normal range of motion and neck supple. Skin: General: Skin is warm and dry. Neurological: Mental Status: He is alert and oriented to person, place, and time. Diagnostic Studies / Procedures ELECTROCARDIOGRAMS: Results for orders placed or performed during the hospital encounter of 10/04/[address] [facility] Test Date: 2022-10-04 Pat Name: [facility] Department: Room: [place] [address] Gender: Male Orthopaedic General: ANKIT : 2000 Requested By: CLEMENTINA VAZQUEZ Order Number: [id number] Reading MD: Measurements Intervals [employer] Rate: 65 P: 27 MI: 143 QRS: 70 QRSD: 119 T: 26 QT: 393 QTc: 409 Interpretive Statements SINUS RHYTHM WITH SINUS ARRHYTHMIA MODERATE INTRAVENTRICULAR CONDUCTION DELAY [110+ ms QRS DURATION] No previous ECG available for comparison LABORATORY STUDIES: Results for orders placed or performed during the hospital encounter of 10/04/22 CBC W/DIFF AUTOMATED Result Value Ref Range WBC 14.15 (H) 4.50 - 11.00 x10'3/uL RBC 5.79 4.70 - 6.10 x10'6/uL HGB 16.5 14.0 - 18.0 G/DL HCT 49.1 43.0 - 54.0 % MCV 84.8 80.0 - 94.0 FL MCH 28.5 27.0 - 31.0 PG MCHC 33.6 32.0 - 36.0 G/DL RDW 12.6 11.5 - 14.5 % PLT 291 130 - 400 x10'3/uL MPV 11.1 9.3 - 12.2 FL CBC COMMENT AUTOMATED RBC MORPHOLOGY AND PLATELET EVALUATION NORMAL NEUTROPHILS 72.1 % LYMPHOCYTES 19.2 % MONOCYTES 5.8 % EOSINOPHILS 1.8 % BASOPHILS 0.3 % IMMATURE GRANS 0.8 % NRBC 0.0 % ABS. NEUTROPHILS TOTAL 10.19 (H) 1.80 - 7.70 x10'3/uL ABS. LYMPHOCYTES 2.72 1.00 - 4.80 x10'3/uL ABS. MONOCYTES 0.82 0.30 - 0.82 x10'3/uL ABS. EOSINOPHILS 0.26 0.04 - 0.54 x10'3/uL ABS. BASOPHILS 0.04 0.01 - 0.08 x10'3/uL ABS. IMMATURE GRANULOCYTES 0.12 0.00 - 0.49 x10'3/uL ABS. NUCLEATED RBC'S 0.00 0.00 - 0.01 x10'3/uL COMPREHENSIVE METABOLIC PANEL Result Value Ref Range GLUCOSE 126 (H) 70 - 99 MG/DL BUN 16 7 - 18 MG/DL CREATININE S/P/B 1.00 0.7 - 1.3 MG/DL SODIUM S/P/B 143 136 - 145 MMOL/L POTASSIUM S/P/B 3.3 (L) 3.5 - 5.1 MMOL/L CHLORIDE S/P/B 105 100 - 108 MMOL/L CO2 20.7 (L) 21 - 32 MMOL/L CALCIUM 9.0 8.5 - 10.1 MG/DL BILIRUBIN TOTAL S/P/B 1.2 0.2 - 1.2 MG/DL TOTAL PROTEIN S/P/B 7.9 6.4 - 8.2 G/DL ALBUMIN S/P/B 4.0 3.4 - 5.0 G/DL AST 29 15 - 37 U/L ALT 49 16 - 60 U/L ALKALINE PHOSPHATASE S/P/B 88 50 - 136 U/L ANION GAP 17.3 (H) 5 - 15 MMOL/L BUN CREATININE RATIO 16.0 6 - 26 A/G RATIO 1.0 1.0 - 2.0 RATIO GFR ESTIMATE >90 >90 ML/MIN/1.73 M2 LIPASE Result Value Ref Range LIPASE 14 (L) 16 - 77 UNITS/L IMAGING STUDIES No orders to display ED Course / Medical Decision Making Medical Decision Making 22-year-old male presenting with nausea and vomiting he has in the setting of history of cannabinoid induced hyperemesis with recent resumption of marijuana use. Amount and/or Complexity of Data Reviewed Independent Historian: EMS External Data Reviewed: notes. Details: previous ED visits Labs: ordered. Decision-making details documented in ED Course. ECG/medicine tests: ordered and independent interpretation performed. Decision- making details documented in ED Course. Risk Prescription drug management. ED Course as of 10/04/221736 Tania October 04, 2022 1505 EKG shows sinus rhythm with sinus arrhythmia. Ventricular rate 65 bpm. MI interval is 143 ms, QRS duration 119 ms, QTc [address] segment elevation or depression noted. Moderate intraventricular conduction delay [GJ] 1526 POTASSIUM S/P/B(!): 3.3 K is 3.3 [GJ] 1527 Bicarb 20.7 [GJ] 1527 LIPASE(!) Lipase not elevated [GJ] 1527 ANION GAP(!): 17.3 AG of 17.3. Will continue giving IV fluids. [GJ] 1733 Tolerated PO challenge. Patient was able to contact someone for a ride home. He is feeling improved. Will discharge home with prescriptions for Zofran, Phenergan MI if needed. Discussed that he should avoid marijuana at all times [GJ] ED Course User Index [GJ] Clementina Vazquez MD Clinical Impression Cannabinoid hyperemesis syndrome (Primary) Disposition: Discharge Clementina Vazquez MD 10/04/221736 documented in this encounter Plan of Treatment Not on file documented as of this encounter Procedures Procedure Name Priority Date/Time Associated Diagnosis Comments ECG 12-LEAD STAT 10/04/2022 2:53 PM CDT COMPREHENSIVE METABOLIC PANEL STAT 10/04/2022 2:06 PM CDT CBC W/DIFF AUTOMATED STAT 10/04/2022 2:06 PM CDT LIPASE STAT 10/04/2022 2:06 PM CDT documented in this encounter Results * ECG 12 lead (10/04/2022 2:53 PM CDT) 10/04/2022 2:53 PM CDT Narrative [facility] - 10/04/2022 11:33 PM CDT ? [facility] ? Test Date: ?2022-10-04 Pat Name: ? JESSE STONE ? Department: ?? 80 ? Room: ? HALLH03 Gender: ? Male ? Orthopaedic General: ?? ANKIT : ?2000 ? Requested By: CLEMENTINA VAZQUEZ Order Number: [id number] ? Reading MD: ?? Michael Ruiz ? Measurements Intervals ?[employer] ? Rate: ? 65 ? P: ?27 MI: ? 143 ?QRS: ?70 QRSD: ? 119 ?T: ?26 QT: ? 393 ? QTc: ?409 ? Interpretive Statements SINUS RHYTHM WITH SINUS ARRHYTHMIA MODERATE INTRAVENTRICULAR CONDUCTION DELAY [110+ ms QRS DURATION] No previous ECG available for comparison Procedure Note Michael Ruiz MD - 10/04/2022 [facility] Test Date: 2022-10-04 Pat Name: [facility] Department: Room: [place] [address] Gender: Male Orthopaedic General: ANKIT : 2000 Requested By: CLEMENTINA VAZQUEZ Order Number: [id number] Natalee MD: Michael Ruiz Measurements Intervals [employer] Rate: 65 P: 27 MI: 143 QRS: 70 QRSD: 119 T: 26 QT: 393 QTc: 409 Interpretive Statements SINUS RHYTHM WITH SINUS ARRHYTHMIA MODERATE INTRAVENTRICULAR CONDUCTION DELAY [110+ ms QRS DURATION] No previous ECG available for comparison us Clementina Vazquez MD ECG ORDERABLES Final Resu lt [facility] ([facility] * (ABNORMAL) LIPASE (10/04/2022 2:06 PM CDT) LIPASE 14(L) 16 - 77 UNITS/L 10/04/2022 3:23 PM CDT [facility] Comment: PLEASE NOTE: NEW LIPASE REFERENCE RANGE, EFFECTIVE 09/18/2022 NEW REFERENCE RANGE 16-77 U/L 10/04/2022 2:06 PM CDT us Clementina Vazquez MD LABORATORY Final Resu lt [facility] [address] [place] [address], [place] [phone] * (ABNORMAL) COMPREHENSIVE METABOLIC PANEL (10/04/2022 2:06 PM CDT) GLUCOSE 126(H) 70 - 99 MG/DL 10/04/2022 3:23 PM CDT [facility] BUN 16 7 - 18 MG/DL 10/04/2022 3:23 PM CDT [facility] CREATININE S/P/B 1.00 0.7 - 1.3 MG/DL 10/04/2022 3:23 PM CDT [facility] SODIUM S/P/B 143 136 - 145 MMOL/L 10/04/2022 3:23 PM CDT [facility] POTASSIUM S/P/B 3.3(L) 3.5 - 5.1 MMOL/L 10/04/2022 3:23 PM CDT [facility] CHLORIDE S/P/B 105 100 - 108 MMOL/L 10/04/2022 3:23 PM CDT [facility] CO2 20.7(L) 21 - 32 MMOL/L 10/04/2022 3:23 PM [facility] CALCIUM S/P/B 9.0 8.5 - 10.1 MG/DL 10/04/2022 3:23 PM [facility] BILIRUBIN TOTAL S/P/B 1.2 0.2 - 1.2 MG/DL 10/04/2022 3:23 PM [facility] Comment: THIS ASSAY IS NOT RECOMMENDED FOR PATIENTS UNDERGOING TREATMENT WITH ELTROMBOPAG DUE TO THE POTENTIAL FOR FALSELY ELEVATED RESULTS. TOTAL PROTEIN S/P/B 7.9 6.4 - 8.2 G/DL 10/04/2022 3:23 PM [facility] ALBUMIN S/P/B 4.0 3.4 - 5.0 G/DL 10/04/2022 3:23 PM [facility] AST 29 15 - 37 U/L 10/04/2022 3:23 PM [facility] ALT 49 16 - 60 U/L 10/04/2022 3:23 PM [facility] ALKALINE PHOSPHATASE S/P/B 88 50 - 136 U/L 10/04/2022 3:23 PM [facility] ANION GAP 17.3(H) 5 - 15 MMOL/L 10/04/2022 3:23 PM [facility] BUN CREATININE RATIO 16.0 6 - 26 10/04/2022 3:23 PM [facility] A/G RATIO 1.0 1.0 - 2.0 RATIO 10/04/2022 3:23 PM [facility] GFR ESTIMATE >90 >90 ML/MIN/1.7 3 M2 10/04/2022 3:23 PM [facility] Comment: NOTE: eGFR is not calculated for patients <18 years of age. This is an estimated GFR calculation using the new CKD EPI creatinine equation without race and so does not require a correction factor for race. This estimated GFR should not be used for calculating drug doses. 10/04/2022 2:06 PM CDT Clementina Vazquez MD LABORATORY Final Resu lt [facility] [address] [place] [address], * (ABNORMAL) CBC W/DIFF AUTOMATED (10/04/2022 2:06 PM CDT) WBC 14.15(H) 4.50 - 11.00 x10'3/uL 10/04/2022 2:53 PM CDT [facility] RBC 5.79 4.70 - 6.10 x10'6/uL 10/04/2022 2:53 PM CDT [facility] HGB 16.5 14.0 - 18.0 G/DL 10/04/2022 2:53 PM CDT [facility] HCT 49.1 43.0 - 54.0 % 10/04/2022 2:53 PM CDT [facility] MCV 84.8 80.0 - 94.0 FL 10/04/2022 2:53 PM CDT [facility] MCH 28.5 27.0 - 31.0 PG 10/04/2022 2:53 PM CDT [facility] MCHC 33.6 32.0 - 36.0 G/DL 10/04/2022 2:53 PM CDT [facility] RDW 12.6 11.5 - 14.5 % 10/04/2022 2:53 PM CDT [facility] PLT 291 130 - 400 x10'3/uL 10/04/2022 2:53 PM CDT [facility] MPV 11.1 9.3 - 12.2 FL 10/04/2022 2:53 PM CDT [facility] CBC COMMENT AUTOMATED RBC MORPHOLOGY AND PLATELET EVALUATION NORMAL 10/04/2022 2:53 PM CDT [facility] NEUTROPHILS % 72.1 % 10/04/2022 2:53 PM CDT [facility] LYMPHOCYTES % 19.2 % 10/04/2022 2:53 PM CDT [facility] MONOCYTES % 5.8 % 10/04/2022 2:53 PM CDT [facility] EOSINOPHILS 1.8 % 10/04/2022 2:53 PM CDT [facility] BASOPHILS 0.3 % 10/04/2022 2:53 PM CDT [facility] IMMATURE GRANS % 0.8 % 10/05/19 23 2:53 PM CDT [facility] NRBC 0.0 % 10/04/2022 2:53 PM CDT [facility] ABS. NEUTROPHILS TOTAL 10.19(H) 1.80 - 7.70 x10'3/uL 10/04/2022 2:53 PM CDT [facility] ABS. LYMPHOCYTES 2.72 1.00 - 4.80 x10'3/uL 10/04/2022 2:53 PM CDT [facility] ABS. MONOCYTES 0.82 0.30 - 0.82 x10'3/uL 10/04/2022 2:53 PM CDT [facility] ABS. EOSINOPHILS 0.26 0.04 - 0.54 x10'3/uL 10/04/2022 2:53 PM CDT [facility] ABS. BASOPHILS 0.04 0.01 - 0.08 x10'3/uL 10/04/2022 2:53 PM CDT [facility] ABS. IMMATURE GRANULOCYTES 0.12 0.00 - 0.49 x10'3/uL 10/04/2022 2:53 PM CDT [facility] ABS. NUCLEATED RBC'S 0.00 0.00 - 0.01 x10'3/uL 10/04/2022 2:53 PM CDT [facility] 10/04/2022 2:06 PM CDT us Clementina Vazquez MD LABORATORY Final Resu lt [facility] [address] [place] [address], [place] [phone] documented in this encounter Visit Diagnoses Diagnosis Cannabinoid hyperemesis syndrome- Primary documented in this encounter Administered Medications Inactive Administered Medications - up to 3 most recent administrations Medication Order MAR Action Action Date Dose Rate Site haloperidol lactate (HALDOL) injection 5 mg 5 mg, Intravenous, Once, 1 dose, On Tania 10/04/22 at 1445, IF giving IV, do not give faster than 5 mg/min IV; observe for hypotension. Given 10/04/2022 3:03 PM CDT 5 mg ondansetron (ZOFRAN) 4 MG/2ML injection 1 dose, Starting on Tania 10/04/22 at 1433, Until Tania 10/04/22 at 1444, Created by cabinet override Given by Other 10/04/2022 2:44 PM CDT sodium chloride 0.9% bolus infusion 1,000 mL 1,000 mL, Intravenous, Administer over 60 Minutes, Once, 1 dose, On Tania 10/04/22 at 1445 New Bag 10/04/2022 3:03 PM CDT 1,000 mLs documented in this encounter Active and Recently Administered Medications Times are shown in CDT. Scheduled Medication Order 10/02/2022 10/03/2022 10/04/2022 haloperidol lactate (HALDOL) injection 5 mg (COMPLETED) 5 mg, Intravenous, Once, 1 dose, On Tania 10/04/22 at 1445, IF giving IV, do not give faster than 5 mg/min IV; observe for hypotension. 1503 (Given - Provid er: Jasmyn Ward, CHERY) sodium chloride 0.9% bolus infusion 1,000 mL (COMPLETED) 1,000 mL, Intravenous, Administer over 60 Minutes, Once, 1 dose, On Tania 10/04/22 at 1445 1503 (New Bag - Prov ider: Jasmyn Ward, CHERY)1535 (Infusion Stop Time - Provider: Jasmyn Ward RN) No Frequency Medication Order 10/02/2022 10/03/2022 10/04/2022 ondansetron (ZOFRAN) 4 MG/2ML injection (COMPLETED) 1 dose, Starting on Tania 10/04/22 at 1433, Until Tania 10/04/22 at 1444, Created by cabinet override 1444 (Given by Other - Provider: Shirley Coronado RN - Comment: EMS [facility]OCK GIVEN IN ROUTE TO HOSPITAL) documented in this encounter Care Teams Course Instructor Relationship Specialty Start Date End Date Osbaldo Hong MD PCP - General FAMILY PRACTICE 11/30/21 documented as of this encounter
--- OUTSIDE RECORDS SUMMARY | 2024-05-26 02:41 | XMS_ITS | Encounter Summary ---
Author Organization [facility] Address [address] [place] [address]. [place], [place] [id number] [place] [id number] Care Team Providers Care Hoist Operator Name Role Phone Osbaldo Hong MD Primary Care Provider Unav ailable Encounter Details Date Type Department Care Team (Latest Contact Info) Description 11/30/2021 Travel Social History Tobacco Use Types Packs/Day [...] suspected to have Coronavirus/COVID-19? No / Unsure 11/30/2021 1:31 PM CDT documented as of this encounter Plan of Treatment Not on file documented as of this encounter Visit Diagnoses Not on filedocumented in this encounter Care Teams Hoist Operator Relationship Specialty Start Date End Date Osbaldo Hong MD PCP - General FAMILY PRACTICE 11/30/21 documented as of this encounter
--- OUTSIDE RECORDS SUMMARY | 2024-05-26 02:41 | XMS_ITS | Encounter Summary ---
Author Organization [facility] Address [address] [place] [address]. [place], [place] [address] [place] [id number] Care Team Providers Care Engineer [employer] Name Role Phone Osbaldo Hong MD Primary Care Provider Unav ailable Encounter Details Date Type Department Care Team (Latest Contact Info) Description 10/04/2022 Travel Social History Tobacco Use Types Packs/Day [...] on filedocumented in this encounter Care Teams Engineer [employer] Relationship Specialty Start Date End Date Osbaldo Hong MD PCP - General FAMILY PRACTICE 11/30/21 documented as of this encounter
--- OUTSIDE RECORDS SUMMARY | 2024-05-26 02:41 | XMS_ITS | Encounter Summary ---
Author Organization [facility] Address [address] [place] [address]. [place], [place] [id number] [place] [id number] Care Team Providers Care Lens And Frames Prescription Clerk Name Role Phone Osbaldo Hong MD Primary Care Provider Unav ailable Reason for Visit * Reason Comments CT (SCAN) Encounter Details Date Type Department Care Team (Latest Contact Info) Description 06/21/2022 Scan [facility] Scanned, Doc [...] Priority Date/Time Associated Diagnosis Comments CT GENERIC 06/21/2022 documented in this encounter Results * CT GENERIC (06/21/2022) Anatomical Region Laterality Modality Other 06/21/2022 us Doc [facility] Scanned SCANNING Final Resu lt documented in this encounter Visit Diagnoses Not on filedocumented in this encounter Care Teams Lens And Frames Prescription Clerk Relationship Specialty Start Date End Date Osbaldo Hong MD PCP - General FAMILY PRACTICE 11/30/21 documented as of this encounter
--- OUTSIDE RECORDS SUMMARY | 2024-05-26 02:41 | XMS_ITS | Encounter Summary ---
Author Organization [facility] Address [address] [place] [address]. [place], [place] [id number] [place] [id number] Care Team Providers Care Picker Name Role Phone Allan Mcdonald PA-C Primary Care Provider [phone]- [phone] Reason for Visit * Reason Comments Vomiting Encounter Details Date Type Department Care Team (Late st Contact Info) Description 10/10/2021 12:04 PM CDT - 10/10/2021 5:09 PM CDT Emergency [facility] [place] [address] Indra Ann PA [address] [place] [address] Vomiting Discharge Disposition: Home or Self Care [...] suspected to have Coronavirus/COVID-19? No / Unsure 10/10/2021 11:42 AM CDT documented as of this encounter Last Filed Vital Signs Vital Sign Reading Time Taken Comments Blood Pressure 144/104 10/10/2021 5:00 PM CDT Pulse 89 10/10/2021 5:00 PM CDT Temperature 36.1 ??C (97 ??F) 10/10/2021 11:51 AM CDT Respiratory Rate 20 10/10/2021 5:00 PM CDT Oxygen Saturation 99% 10/10/2021 5:00 PM CDT Inhaled Oxygen Concentration - - Weight 140.6 kg (310 lb) 10/10/2021 11:51 AM CDT Height 185.4 cm (6' 1 ) 10/10/2021 11:51 AM CDT Body Mass Index 40.9 10/10/2021 11:51 AM CDT documented in this encounter Discharge Instructions * Discharge Instructions* SUSAN Brooks - 10/10/2021 5:00 PM CDT Take medication as prescribed. Follow-up with your primary care provider in 5 to 7 days. Return emergency department symptoms worsen or new concerns. * Attachments The following attachments cannot be sent through Care Everywhere. * Viral Gastroenteritis Discharge Instructions, Adult ([place]) documented in this encounter Medications at Time of Discharge ondansetron 4 MG disintegrating tablet Take 1 tablet (4 mg total) by mouth every 8 (eight) hours as needed for Nausea. 20 tablet 10/10/2021 3 predniSONE 20 MG tabletIndications:Pn eumonia of both lungs due to infectious organism, unspecified part of lung Take 2 po for 3 days then 1 1/2 po for 3 days then 1 po for 3 days then 1/2 po for 3 days 15 tablet 07/05/2021 3 documented as of this encounter ED Notes * Seema Valdez RN - 10/10/2021 5:02 PM CDT Pt requests that he goes home. He denies wanting further evaluation for the abdominal pain or waiting for the CT abdomen. Pt has not vomited for past hour since receiving meds. AOx4. Provider discussed today's findings with the patient/family. The patient has been given information regarding their t reatment, follow up and concerning symptoms for which they should seek urgent or emergent attention. I have expressed the the importance of seeking attention should there be any new, or worsening symptoms or persistence of their condition. Patient verbalized understanding of the discharge instructions. * Seema Valdez RN - 10/10/2021 2:54 PM CDT Asked patient several times for urine sample. Fluids are done and he still reports he can not provide a sample. I don't feel good. Nausea and now mid abdominal pain. I've been sick for hours. I can't even get up to pee. Refusing straight cath at this time. * Floresita Kline RN - 10/10/2021 12:26 PM CDT Bed: 21 Expected date: Expected time: Means of arrival: Comments: Jonn * SUSAN Brooks - 10/10/2021 12:24 PM CDT [place], [place] EMERGENCY DEPARTMENT ENCOUNTER Chief Complaint Chief Complaint Patient presents with ??? Vomiting History of Present Illness Provider at Bedside Date/Time Event User Comments 10/10/21 1142 Provider at Bedside Assessing Patient SOLA DAWKINS History provided by: Patient and medical records window caser used: No Vomiting Associated symptoms: no abdominal pain, no cough and no sore throat 21-year-old male with a pmh of cannabinoid hyperemesis syndrome who presents to the ED for evaluation of vomiting. Pt reports he has had no marijuana use x 2 weeks and ran out of Zofran this morning.Pt denies any blood in his vomit, states he usually has this. Pt denies any hx of pancreatitis. Medical History ALLERGIES: No Known Allergies MEDICATIONS: Prior to Admission medications Medication Sig Start Date End Date Taking? Authorizing Provider ondansetron 4 MG disintegrating tablet Take 1 tablet (4 mg total) by mouth every 8 (eight) hours asneeded for Nausea. 10/10/21 Yes SUSAN Brooks predniSONE 20 MG tablet Take 2 po for 3 days then 1 1/2 po for 3 days then 1 po for 3 days then 1/2 po for 3 days 07/05/21 Allan Mcdonald PA-C PAST MEDICAL HISTORY: Past Medical History: Diagnosis Date ??? Cannabinoid hyperemesis syndrome ??? Pneumonia PAST SURGICAL HISTORY: Past Surgical History: Procedure Laterality Date ??? OTHER PROCEDURE ear tubes ??? TONSILLECTOMY FAMILY HISTORY: Family History Problem Relation Name Age of Onset ??? Cancer Mother ??? Diabetes Paternal Aunt ??? Diabetes Paternal Uncle ??? Diabetes Maternal Grandfather SOCIAL HISTORY: Social History Tobacco Use ??? Smoking status: Never Smoker ??? Smokeless tobacco: Never Used Vaping Use ??? Vaping Use: Never used Substance Use Topics ??? Alcohol use: Not Currently ??? Drug use: Not Currently Types: Marijuana Comment: Quit Marijuana last July Review of Systems Review of Systems Constitutional: Negative for activity change and appetite change. HENT: Negative for congestion, ear discharge, ear pain and sore throat. Respiratory: Negative for cough and shortness of breath. Cardiovascular: Negative for chest pain. Gastrointestinal: Positive for vomiting. Negative for abdominal pain and nausea. Musculoskeletal: Negative for back pain and neck pain. Neurological: Negative for dizziness, syncope and light-headedness. See HPI for further details. All systems negative except as marked. Physical Exam Filed Vitals: 10/10/21 1530 10/10/21 1600 10/10/21 1630 10/10/21 1700 BP: (!) 142/71 104/56 (!) 140/83 (!) 144/104 Pulse: 98 90 85 89 Resp: 28 26 26 20 Temp: TempSrc: SpO2: 96% 98% 98% 99% Weight: Height: Physical Exam Vitals and nursing note reviewed. Constitutional: General: He is not in acute distress. Appearance: He is well-developed. HENT: Head: Normocephalic. Nose: Nose normal. Eyes: Pupils: Pupils are equal, round, and reactive to light. Cardiovascular: Rate and Rhythm: Normal rate and regular rhythm. Heart sounds: Normal heart sounds. Pulmonary: Effort: Pulmonary effort is normal. Breath sounds: Normal breath sounds. Abdominal: General: Bowel sounds are normal. Palpations: Abdomen is soft. Tenderness: There is abdominal tenderness in the epigastric area. Musculoskeletal: General: No tenderness. Normal range of motion. Cervical back: Normal range of motion and neck supple. Skin: General: Skin is warm and dry. Neurological: Mental Status: He is alert and oriented to person, place, and time. Psychiatric: Behavior: Behavior normal. Thought Content: Thought content normal. Judgment: Judgment normal. Diagnostic Studies / Procedures ELECTROCARDIOGRAMS: No results found for this visit on 10/10/21. LABORATORY STUDIES: Results for orders placed or performed during the hospital encounter of 10/10/21 CBC W/DIFF AUTOMATED Result Value Ref Range WBC 12.9 (H) 4.5 - 11.0 x10'3/uL RBC 5.60 4.70 - 6.10 x10'6/uL HGB 15.6 14.0 - 18.0 G/DL HCT 46.3 43.0 - 54.0 % MCV 82.7 80.0 - 94.0 FL MCH 27.9 27.0 - 31.0 PG MCHC 33.7 32.0 - 36.0 G/DL RDW 12.8 11.5 - 14.5 % PLT 263 130 - 400 x10'3/uL MPV 10.8 9.3 - 12.2 FL DIFFERENTIAL TYPE AUTOMATED DIFFERENTIAL NEUTROPHILS 84.2 % LYMPHOCYTES 10.4 % MONOCYTES 3.6 % EOSINOPHILS 0.6 % BASOPHILS 0.3 % IMMATURE GRANS 0.9 % ABS. NEUTROPHILS TOTAL 10.83 (H) 1.80 - 7.70 x10'3/uL ABS. LYMPHOCYTES 1.34 1.00 - 4.80 x10'3/uL ABS. MONOCYTES 0.47 0.30 - 0.82 x10'3/uL ABS. EOSINOPHILS 0.08 0.04 - 0.54 x10'3/uL ABS. BASOPHILS 0.04 0.01 - 0.08 x10'3/uL ABS. IMMATURE GRANULOCYTES 0.12 0.00 - 0.49 x10'3/uL COMPREHENSIVE METABOLIC PANEL Result Value Ref Range GLUCOSE 119 (H) 70 - 99 MG/DL BUN 13 7 - 18 MG/DL CREATININE S/P/B 0.85 0.7 - 1.3 MG/DL SODIUM 139 136 - 145 MMOL/L POTASSIUM 3.7 3.5 - 5.1 MMOL/L CHLORIDE S/P/B 109 (H) 100 - 108 MMOL/L CO2 21.0 21 - 32 MMOL/L CALCIUM 9.2 8.5 - 10.1 MG/DL BILIRUBIN TOTAL S/P/B 0.7 0.2 - 1.2 MG/DL TOTAL PROTEIN S/P/B 7.6 6.4 - 8.2 G/DL ALBUMIN S/P/B 4.0 3.4 - 5.0 G/DL AST 26 15 - 37 U/L ALT 42 16 - 60 U/L ALKALINE PHOSPHATASE S/P/B 90 50 - 136 U/L ANION GAP 9.0 5 - 15 MMOL/L BUN CREATININE RATIO 15.3 6 - 26 A/G RATIO 1.1 1.0 - 2.0 RATIO GFR ESTIMATE >90 >90 ML/MIN/1.73 M2 LIPASE Result Value Ref Range LIPASE 69 (L) 73 - 393 UNITS/L IMAGING STUDIES No orders to display ED Course / Medical Decision Making Labs are grossly unremarkable. Patient no longer having episode of emesis following medications. Offered patient further medications and imaging however patient states he would prefer to go home at this time Data reviewed: All current, pertinent and timely studies (laboratory, imaging, and procedures) wereordered and results reviewed by No att. providers found unless otherwise noted. Triage notes and available nursing notes reviewed. Previous medical record reviewed when available. Repeat vital signs reviewed. Medications sodium chloride 0.9% bolus infusion SOLN 1,000 mL (0 mLs Intravenous Infusion Stop Time 10/10/21 1431) ondansetron (ZOFRAN) injection 4 mg (4 mg Intravenous Given 10/10/21 1221) metoclopramide (REGLAN) injection 10 mg (10 mg Intravenous Given 10/10/21 1222) sodium chloride 0.9% bolus infusion SOLN 1,000 mL (0 mLs Intravenous Infusion Stop Time 10/10/21 1702) haloperidol lactate (HALDOL) injection 5 mg (5 mg Intravenous Given 10/10/21 1536) pantoprazole (PROTONIX) injection 40 mg (40 mg Intravenous Given 10/10/21 1535) prochlorperazine (COMPAZINE) injection 10 mg (10 mg Intravenous Given 10/10/21 1536) diphenhydrAMINE (BENADRYL) injection 25 mg (25 mg Intravenous Given 10/10/21 1535) Clinical Impression Cyclic vomiting syndrome (Primary) Discharge Medication List as of 10/10/2021 5:00 PM START taking these medications Details ondansetron 4 MG disintegrating tablet Take 1 tablet (4 mg total) by mouth every 8 (eight) hours asneeded for Nausea., Starting Sat10/10/2021, Eprescribe Class: Eprescribe Pharmacy: [facility]/pharmacy #[id number] [place], [place] - [facility] [place] ( #: [phone]) Disposition: Discharge Follow-Up: ALLAN MCDONALD PA-C I, Moises Bone, acting as a scribe, am personally taking down the notes in the presence of SUSAN Brooks. Take no action on this note until reviewed and authenticated by the physician. SUSAN Brooks 10/13/21 1459 Cosigned by Marilyn Dougherty MD at 10/13/2021 8:36 PM CDT * Bishnu Martinez RN - 10/10/2021 11:54 AM CDT PT came into the ED with c/o vomiting. PT was in the ED with a similar situation and was diagnosed with hyperemesis canibis. PT reports he has not smoked in 2 week, and ran out of Zofran this morning. PT vitas stable at this time. PT A&OX4. * Sola Dawkins PA-C - 10/10/2021 11:42 AM CDTSummary: emesis [place], [place] EMERGENCY DEPARTMENT ENCOUNTER Medical Screening Examination 10/10/21 11:54 AM Chief Complaint : Vomiting HPI : Aj Lunsford is a 21-year-old male who presents c/o N/V. Hx of cannabis related Hyperemesis. Vital Signs: Filed Vitals: 10/10/21 1151 BP: (!) 137/106 Pulse: 101 Resp: 20 Temp: 97 ??F (36.1 ??C) TempSrc: Temporal SpO2: 95% Weight: (!) 140.6 kg (310 lb) Height: 6' 1 (1.854 m) Physical exam: A brief physical exam was completed to facilitate/expedite patient care. Looney findings include: stable. Active emesis in triage. Plan: labs, medicate SOLA DAWKINS PA-C 10/10/2021 Sola Dawkins PA-C 10/10/21 1155 Sola Dawkins PA-C 10/10/21 1155 Cosigned by Marilyn Dougherty MD at 10/10/2021 12:04 PM CDT documented in this encounter Plan of Treatment Not on file documented as of this encounter Procedures Procedure Name Priority Date/Time Associated Diagnosis Comments COMPREHENSIVE METABOLIC PANEL STAT 10/10/2021 12:10 PM CDT CBC W/DIFF AUTOMATED STAT 10/10/2021 12:10 PM CDT LIPASE STAT 10/10/2021 12:10 PM CDT documented in this encounter Results * (ABNORMAL) LIPASE (10/10/2021 12:10 PM CDT) LIPASE 69(L) 73 - 393 UNITS/L 10/10/2021 12:56 PM CDT [facility] 10/10/2021 12:1 0 PM CDT Sola Dawkins PA-C LABORATORY Final Resul t [facility] [address] [place] [address], [place] [phone] * (ABNORMAL) COMPREHENSIVE METABOLIC PANEL (10/10/2021 12:10 PM CDT) Pathologist [facility] GLUCOSE 119(H) 70 - 99 MG/DL 10/10/2021 12:56 PM CDT [facility] BUN 13 7 - 18 MG/DL 10/10/2021 12:56 PM CDT [facility] CREATININE S/P/B 0.85 0.7 - 1.3 MG/DL 10/10/2021 12:56 PM CDT [facility] SODIUM S/P/B 139 136 - 145 MMOL/L 10/10/2021 12:56 PM CDT [facility] POTASSIUM S/P/B 3.7 3.5 - 5.1 MMOL/L 10/10/2021 12:56 PM CDT [facility] CHLORIDE S/P/B 109(H) 100 - 108 MMOL/L 10/10/2021 12:56 PM CDT [facility] CO2 21.0 21 - 32 MMOL/L 10/10/2021 12:56 PM CDT [facility] CALCIUM S/P/B 9.2 8.5 - 10.1 MG/DL 10/10/2021 12:56 PM CDT [facility] BILIRUBIN TOTAL S/P/B 0.7 0.2 - 1.2 MG/DL 10/10/2021 12:56 PM CDT [facility] Comment: THIS ASSAY IS NOT RECOMMENDED FOR PATIENTS UNDERGOING TREATMENT WITH ELTROMBOPAG DUE TO THE POTENTIAL FOR FALSELY ELEVATED RESULTS. TOTAL PROTEIN S/P/B 7.6 6.4 - 8.2 G/DL 10/10/2021 12:56 PM CDT [facility] ALBUMIN S/P/B 4.0 3.4 - 5.0 G/DL 10/10/2021 12:56 PM CDT [facility] AST 26 15 - 37 U/L 10/10/2021 12:56 PM CDT [facility] ALT 42 16 - 60 U/L 10/10/2021 12:56 PM CDT [facility] ALKALINE PHOSPHATASE S/P/B 90 50 - 136 U/L 10/10/2021 12:56 PM CDT [facility] ANION GAP 9.0 5 - 15 MMOL/L 10/10/2021 12:56 PM CDT [facility] BUN CREATININE RATIO 15.3 6 - 26 10/10/2021 12:56 PM CDT [facility] A/G RATIO 1.1 1.0 - 2.0 RATIO 10/10/2021 12:56 PM CDT [facility] GFR ESTIMATE >90 >90 ML/MIN/1.7 3 M2 10/10/2021 12:56 PM CDT [facility] Comment: NOTE: eGFR is not calculated for patients <18 years of age. This is an estimated GFR calculation using the new CKD EPI creatinine equation without race and so does not require a correction factor for race. This estimated GFR should not be used for calculating drug doses. 10/10/2021 12:1 0 PM CDT us Sola Dawkins PA-C LABORATORY Final Resul t [facility] [address] [place] [address], [place] [phone] * (ABNORMAL) CBC W/DIFF AUTOMATED (10/10/2021 12:10 PM CDT) [facility] Signature WBC 12.9(H) 4.5 - 11.0 x10'3/uL 10/10/2021 12:32 PM CDT [facility] RBC 5.60 4.70 - 6.10 x10'6/uL 10/10/2021 12:32 PM CDT [facility] HGB 15.6 14.0 - 18.0 G/DL 10/10/2021 12:32 PM CDT [facility] HCT 46.3 43.0 - 54.0 % 10/10/2021 12:32 PM CDT [facility] MCV 82.7 80.0 - 94.0 FL 10/10/2021 12:32 PM CDT [facility] MCH 27.9 27.0 - 31.0 PG 10/10/2021 12:32 PM CDT [facility] MCHC 33.7 32.0 - 36.0 G/DL 10/10/2021 12:32 PM CDT [facility] RDW 12.8 11.5 - 14.5 % 10/10/2021 12:32 PM CDT [facility] PLT 263 130 - 400 x10'3/uL 10/10/2021 12:32 PM CDT [facility] MPV 10.8 9.3 - 12.2 FL 10/10/2021 12:32 PM CDT [facility] DIFFERENTIAL TYPE AUTOMATED DIFFERENTIAL 10/10/2021 12:32 PM CDT [facility] NEUTROPHILS % 84.2 % 10/10/2021 12:32 PM CDT [facility] LYMPHOCYTES % 10.4 % 10/10/2021 12:32 PM CDT [facility] MONOCYTES % 3.6 % 10/10/2021 12:32 PM CDT [facility] EOSINOPHILS 0.6 % 10/10/2021 12:32 PM CDT [facility] BASOPHILS 0.3 % 10/10/2021 12:32 PM CDT [facility] IMMATURE GRANS % 0.9 % 10/11/19 12:32 PM CDT [facility] ABS. NEUTROPHILS TOTAL 10.83(H) 1.80 - 7.70 x10'3/uL 10/10/2021 12:32 PM CDT [facility] ABS. LYMPHOCYTES 1.34 1.00 - 4.80 x10'3/uL 10/10/2021 12:32 PM CDT [facility] ABS. MONOCYTES 0.47 0.30 - 0.82 x10'3/uL 10/10/2021 12:32 PM CDT [facility] ABS. EOSINOPHILS 0.08 0.04 - 0.54 x10'3/uL 10/10/2021 12:32 PM CDT [facility] ABS. BASOPHILS 0.04 0.01 - 0.08 x10'3/uL 10/10/2021 12:32 PM CDT [facility] ABS. IMMATURE GRANULOCYTES 0.12 0.00 - 0.49 x10'3/uL 10/10/2021 12:32 PM CDT [facility] 10/10/2021 12:1 0 PM CDT us Sola Dawkins PA-C LABORATORY Final Resul t [facility] [address] [place] [address], [place] [phone] documented in this encounter Visit Diagnoses Diagnosis Cyclic vomiting syndrome- Primary Persistent vomiting documented in this encounter Administered Medications Inactive Administered Medications - up to 3 most recent administrations Medication Order MAR Action Action Date Dose Rate Site diphenhydrAMINE (BENADRYL) injection 25 mg 25 mg, Intravenous, Once, 1 dose, On Sat10/10/21 at 1515, For IV administration, give no faster than 25 mg/min. Given 10/10/2021 3:35 PM CDT 25 mg haloperidol lactate (HALDOL) injection 5 mg 5 mg, Intravenous, Once, 1 dose, On Sat10/10/21 at 1515, IF giving IV, do not give faster than 5 mg/min IV; observe for hypotension. Given 10/10/2021 3:36 PM CDT 5 mg metoclopramide (REGLAN) injection 10 mg 10 mg, Intravenous, Once, 1 dose, On Sat10/10/21 at 1200, Administer IV over 1-2 minutes Given 10/10/2021 12:22 PM CDT 10 mg ondansetron (ZOFRAN) injection 4 mg 4 mg, Intravenous, Once, 1 dose, On Sat10/10/21 at 1200, IV push over 2-5 minutes. Given 10/10/2021 12:21 PM CDT 4 mg pantoprazole (PROTONIX) injection 40 mg 40 mg, Intravenous, Once, 1 dose, On Sat10/10/21 at 1515, Reconstitute each 40 mg vial with 10 mL normal saline to a final concentration of 4 mg/mL. Administer intravenously over a period of a least 2 minutes. Given 10/10/2021 3:35 PM CDT 40 mg prochlorperazine (COMPAZINE) injection 10 mg 10 mg, Intravenous, Once, 1 dose, On Sat10/10/21 at 1515, If giving IV, administer diluted or undiluted by slow IV push at a maximum rate of 5 mg/minute. To reduce the risk of hypotension the patient must remain lying down and be observed for 30 minutes after receiving the medication. Given 10/10/2021 3:36 PM CDT 10 mg sodium chloride 0.9% bolus infusion SOLN 1,000 mL 1,000 mL, Intravenous, Administer over 15 Minutes, Once, 1 dose, On Sat10/10/21 at 1200 New Bag 10/10/2021 12:20 PM CDT 1,000 mLs sodium chloride 0.9% bolus infusion SOLN 1,000 mL 1,000 mL, Intravenous, Administer over 15 Minutes, Once, 1 dose, On 10/10/21 at 1515 New Bag 10/10/2021 3:34 PM CDT 1,000 mLs documented in this encounter Active and Recently Administered Medications Times are shown in CDT. Scheduled Medication Order 10/08/2021 10/09/2021 10/10/2021 diphenhydrAMINE (BENADRYL) injection 25 mg (COMPLETED) 25 mg, Intravenous, Once, 1 dose, On 10/10/21 at 1515, For IV administration, give no faster than 25 mg/min. 1535 (Given - Provid er: Seema Valdez RN) haloperidol lactate (HALDOL) injection 5 mg (COMPLETED) 5 mg, Intravenous, Once, 1 dose, On 10/10/21 at 1515, IF giving IV, do not give faster than 5 mg/min IV; observe for hypotension. 1536 (Given - Provid er: Seema Valdez RN) metoclopramide (REGLAN) injection 10 mg (COMPLETED) 10 mg, Intravenous, Once, 1 dose, On 10/10/21 at 1200, Administer IV over 1-2 minutes 1222 (Given - Provid er: Vane Dodge RN) ondansetron (ZOFRAN) injection 4 mg (COMPLETED) 4 mg, Intravenous, Once, 1 dose, On 10/10/21 at 1200, IV push over 2-5 minutes. 1221 (Given - Provid er: Vane Dodge RN) pantoprazole (PROTONIX) injection 40 mg (COMPLETED) 40 mg, Intravenous, Once, 1 dose, On 10/10/21 at 1515, Reconstitute each 40 mg vial with 10 mL normal saline to a final concentration of 4 mg/mL. Administer intravenously over a period of a least 2 minutes. 1535 (Given - Provid er: Seema Valdez RN) prochlorperazine (COMPAZINE) injection 10 mg (COMPLETED) 10 mg, Intravenous, Once, 1 dose, On 10/10/21 at 1515, If giving IV, administer diluted or undiluted by slow IV push at a maximum rate of 5 mg/minute. To reduce the risk of hypotension the patient must remain lying down and be observed for 30 minutes after receiving the medication. 1536 (Given - Provid er: Seema Valdez RN) sodium chloride 0.9% bolus infusion SOLN 1,000 mL (COMPLETED) 1,000 mL, Intravenous, Administer over 15 Minutes, Once, 1 dose, On Sat10/10/21 at 1200 1220 (New Bag - Prov ider: Vane Dodge RN)1431 (Infusion Stop Time - Provider: Jose Saldana RN) sodium chloride 0.9% bolus infusion SOLN 1,000 mL (COMPLETED) 1,000 mL, Intravenous, Administer over 15 Minutes, Once, 1 dose, On Sat10/10/21 at 1515 1534 (New Bag - Prov ider: Seema Valdez RN)1702 (Infusion Stop Time - Provider: Seema Valdez RN) documented in this encounter Care Teams Picker Relationship Specialty Start Date End Date Allan Mcdonald PA-C [address] [place] [id number] PCP - General PHYSICIAN HEAD USHER 07/05/21 11/29/21 documented as of this encounter
--- OUTSIDE RECORDS SUMMARY | 2024-05-26 02:41 | XMS_ITS | Encounter Summary ---
Author Organization [facility] Address [address] [place] [address]. [place] [address] [place] [address] Care Team Providers Care Code Number Stamper Name Role Phone Allan Mcdonald PA-C Primary Care Provider [phone]- [phone] Reason for Visit * Reason Comments ER F/U Diagnosed with Pneum onia Encounter Details Date Type Department Care Team (Late st Contact Info) Description 07/05/2021 2:20 PM CVICU RN Office Visit [facility] [address] [place] [phone] Allan Mcdonald PA-C [address] [place] [id number] ER F/U (Diagnosed with Pneumonia) Social History Tobacco Use Types Packs/Day Years [...] Coronavirus/COVID-19? No / Unsure 07/05/2021 2:13 PM CVICU RN documented as of this encounter Last Filed Vital Signs Vital Sign Reading Time Taken Comments Blood Pressure 113/70 07/05/2021 2:40 PM CVICU RN Pulse 84 07/05/2021 2:40 PM CVICU RN Temperature 36.6 ??C (97.8 ??F) 07/05/2021 2:40 PM CS T Respiratory Rate 22 07/05/2021 2:40 PM CVICU RN Oxygen Saturation 96% 07/05/2021 2:40 PM CVICU RN Inhaled Oxygen Concentration - - Weight 138.3 kg (305 lb) 07/05/2021 2:40 PM CVICU RN Height 185.4 cm (6' 1 ) 07/05/2021 2:40 PM CVICU RN Body Mass Index 40.24 07/05/2021 2:40 PM CVICU RN documented in this encounter Progress Notes * Allan Mcdonald PA-C - 07/05/2021 2:20 PM CST Reason for Visit: ER F/U (Diagnosed with Pneumonia) History of Present Illness: Patient here for ER follow up for pneumonia. He went to ER for cough and shortness of breath on 06/25/21. His symptoms started about 9 days prior to that. He had a negative COVID and influenza tests.His chest xray showed pneumonia. He was given zpack and tessalon perles. He is some better, but still coughing mainly at night. He feels some tightness in his chest, but it is better then a week ago.He denies fever, sore throat, ear pain,and congestion. He has a history of pneumonia in the past. ROS: Review of Systems Constitutional: Negative for fever. HENT: Negative for congestion, ear pain and sore throat. Respiratory: Positive for cough and chest tightness. Cardiovascular: Negative for chest pain. All other systems reviewed and are negative. Medications: Current Outpatient Medications: ??? amoxicillin-clavulanate (AUGMENTIN) 875-125 MG tablet, Take 1 tablet (875 mg total) by mouth 2 (two) times daily for 10 days., Disp: 20 tablet, Rfl: 0 ??? predniSONE 20 MG tablet, Take 2 po for 3 days then 1 1/2 po for 3 days then 1 po for 3 days then 1/2 po for 3 days, Disp: 15 tablet, Rfl: 0 No Known Allergies Past Medical History: Diagnosis Date ??? Cannabinoid hyperemesis syndrome ??? Pneumonia Past Surgical History: Procedure Laterality Date ??? OTHER PROCEDURE ear tubes ??? TONSILLECTOMY Social History Socioeconomic History ??? Marital status: Single Spouse name: Not on file ??? Number of children: Not on file ??? Years of education: Not on file ??? Highest education level: Not on file Occupational History ??? Not on file Tobacco Use ??? Smoking status: Never Smoker ??? Smokeless tobacco: Never Used Vaping Use ??? Vaping Use: Never used Substance and Sexual Activity ??? Alcohol use: Not Currently ??? Drug use: Not Currently Types: Marijuana Comment: Quit Marijuana last July ??? Sexual activity: Not on file Other Topics Concern ??? Not on file Social History Narrative ??? Not on file Social Determinants of Health Financial Resource Strain: Not on file Food Insecurity: Not on file Transportation Needs: Not on file Physical Activity: Not on file Stress: Not on file Social Connections: Not on file Intimate Partner Violence: Not on file E-Cigarettes Questions Responses E-Cigarette Use Never User Family History Problem Relation Name Age of Onset ??? Cancer Mother ??? Diabetes Paternal Aunt ??? Diabetes Paternal Uncle ??? Diabetes Maternal Grandfather Family Status Relation Name Status ??? Mother (Not Specified) ??? PAunt (Not Specified) ??? PUncle (Not Specified) ??? MGF (Not Specified) Physical Exam Vitals reviewed. Constitutional: Appearance: Normal appearance. HENT: Head: Normocephalic. Right Ear: Tympanic membrane normal. Left Ear: Tympanic membrane normal. Mouth/Throat: Mucous membranes are moist. No oropharyngeal exudate or posterior oropharyngeal erythema. Oropharynx is clear. Neck: Thyroid: No thyromegaly. Cardiovascular: Rate and Rhythm: Normal rate and regular rhythm. Pulmonary: Effort: Pulmonary effort is normal. Breath sounds: Wheezing present. Musculoskeletal: Right lower leg: No swelling. No edema. Left lower leg: No swelling. No edema. Neurological: Mental Status: He is alert. Psychiatric: Mood and Affect: Mood normal. Filed Vitals: 07/05/21 1440 BP: 113/70 Pulse: 84 Resp: 22 Temp: 97.8 ??F (36.6 ??C) SpO2: 96% Weight: (!) 138.3 kg (305 lb) Height: 6' 1 (1.854 m) Diagnoses/Impression: 1. Pneumonia of both lungs due to infectious organism, unspecified part of lung predniSONE 20 MG tablet amoxicillin-clavulanate (AUGMENTIN) 875-125 MG tablet XR CHEST PA+LAT Recommendations and Plan: Reviewed ER records. He will take augmentin and prednisone taper. He will repeat chest xray in 2 weeks. He will follow up in 1 week. Orders Placed This Encounter ??? XR CHEST PA+LAT ??? predniSONE 20 MG tablet ??? amoxicillin-clavulanate (AUGMENTIN) 875-125 MG tablet Reviewed and updated this visit by provider: Tobacco Allergies Meds Problems Med Hx Surg Hx Fam Hx ALLAN MCDONALD PA-C Referring Provider: No ref. provider found PCP: ALLAN MCDONALD PA-C U RN documented in this encounter Plan of Treatment Not on file documented as of this encounter Visit Diagnoses Diagnosis Pneumonia of both lungs due to infectious organism, unspecified part of lung- Primary documented in this encounter Care Teams Code Number Stamper Relationship Specialty Start Date End Date Allan Mcdonald PA-C [address] [place] [phone] PCP - General PHYSICIAN LOAN ADMINISTRATOR 07/05/21 11/29/21 documented as of this encounter
--- OUTSIDE RECORDS SUMMARY | 2024-05-26 02:41 | XMS_ITS | Encounter Summary ---
Author Organization [facility] Address [address] [place] [address]. [place], [place] [address] [place] [id number] Care Team Providers Care Supervisor Fish Processing Name Role Phone Soumya Franks PA-C Primary Care Provider [phone]- [phone] Reason for Visit * Reason Comments Lab (SCAN) Encounter Details Date Type Department Care Team (Latest Contact Info) Description 07/10/2021 Scan HEALTH INFO SRVCS Scanned, Documents Lab [...] Coronavirus/COVID-19? No / Unsure 07/05/2021 2:13 PM FAST FOOD MANAGER documented as of this encounter Plan of Treatment Not on file documented as of this encounter Procedures Procedure Name Priority Date/Time Associated Diagnosis Comments OUTSIDE LAB (SCAN ORDER) 07/10/2021 documented in this encounter Results * OUTSIDE LAB (SCAN) (07/10/2021) 07/10/2021 Narrative 07/10/2021 Ordered by an unspecified provider. us Documents Scanned SCANNING Final Result documented in this encounter Visit Diagnoses Not on filedocumented in this encounter Care Teams Supervisor Fish Processing Relationship Specialty Start Date End Date Soumya Franks PA-C [address] [place] [id number] PCP - General PHYSICIAN OPTICS TEST TECHNICIAN 07/05/21 11/29/21 documented as of this encounter
--- OUTSIDE RECORDS SUMMARY | 2024-05-26 02:41 | XMS_ITS | Encounter Summary ---
Author Organization [facility] Address [address] [place] [address]. [place], [place] [id number] [place] [id number] Care Team Providers Care Inclusion Special Educator Name Role Phone Osbaldo Hong MD Primary Care Provider Unav ailable Reason for Visit * Reason Comments Lab (SCAN) Encounter Details Date Type Department Care Team (Latest Contact Info) Description 04/30/2023 Scan [facility] HEALTH INFO SRVCS Scanned, Doc [...] Associated Diagnosis Comments OUTSIDE LAB (SCAN ORDER) 04/30/2023 OUTSIDE LAB (SCAN ORDER) 04/30/2023 documented in this encounter Results * OUTSIDE LAB (SCAN) (04/30/2023) 04/30/2023 [facility] Scanned SCANNING Final Resu lt * OUTSIDE LAB (SCAN) (04/30/2023) 04/30/2023 [facility] Scanned SCANNING Final Resu lt documented in this encounter Visit Diagnoses Not on filedocumented in this encounter Care Teams Inclusion Special Educator Relationship Specialty Start Date End Date Osbaldo Hong MD PCP - General FAMILY PRACTICE 11/30/21 documented as of this encounter
--- OUTSIDE RECORDS SUMMARY | 2024-05-26 02:41 | XMS_ITS | Encounter Summary ---
Author Organization [facility] Address [address] [place] [address]. [place], [place] [id number] [place] [id number] Care Team Providers Care 3D Designer Name Role Phone Lesli Griffith MD Primary Care Provider Unav ailable Reason for Visit * Reason Comments Nausea Encounter Details Date Type Department Care Team (Late st Contact Info) Description 11/30/2021 2:17 PM CDT - 11/30/2021 3:48 PM CDT Emergency [facility] [place] [address] Jasmyn Dickinson, SUSAN [address] [place] [id number] Nausea Discharge Disposition: Home or Self Care (Routine [...] Sign Reading Time Taken Comments Blood Pressure 139/90 11/30/2021 1:33 PM CDT Pulse 95 11/30/2021 1:33 PM CDT Temperature 35.3 ??C (95.6 ??F) 11/30/2021 1:33 PM CD T Respiratory Rate 18 11/30/2021 1:33 PM CDT Oxygen Saturation 97% 11/30/2021 1:33 PM CDT Inhaled Oxygen Concentration - - Weight 144.4 kg (318 lb 5.5 oz) 11/30/2021 1:33 PM CDT Height 185.4 cm (6' 1 ) 11/30/2021 1:33 PM CDT Body Mass Index 42 11/30/2021 1:33 PM CDT documented in this encounter Discharge Instructions * Discharge Instructions* SUSAN Gross - 11/30/2021 3:42 PM CDT Thank you for giving us the opportunity to care for you today. If at any point you are becoming more ill, please call your doctor or return here. You are always welcome back. Our practice is committed to providing you the very best in healthcare. We want to hear from you! Please fill out the survey you get from us. Your feedback is anonymous & helps us improve the patient experience for you and others in the community we serve. - DENEEN Robbins PA-C - Emergency Medicine Provider ADDITIONAL DISCHARGE INSTRUCTIONS: --Emergency Departments (ED) provide medical screening exams and initial stabilizing treatment of emergency medical conditions. Medicine is an inexact science and many conditions cannot be diagnosed or completely treated during a single ED visit. Your treating healthcare provider(s) today feel yourcondition has been stabilized so further care as an outpatient is reasonable. Emergency care does not substitute for complete, ongoing, or follow-up care by your primary care physician or technology consultant.Please mention to your follow-up physician that you were in the emergency department and request that they review your labs and/or imaging to ensure all findings are followed up on. --Your medication list was reviewed prior to treatment, and at discharge, by the treating provider for the purpose of this outpatient visit only. Please review this entire medication list with your pharmacist, primary care physician, and specialist(s). It is your responsibility to share any new medication instructions you received this visit with your doctor(s). Although no medicine is without risk, your healthcare provider today feels reasonable decisions were made concerning starting new medications and stopping or changing the dosages of your usual medications until you receive follow-up care. Take medications only as directed. Many medications can cause drowsiness, especially those for pain, anxiety, muscle spasms, nausea, and allergies. DO NOT drive, drink alcohol, operate power machinery, or participate in potentially dangerous activities if taking medicines that make you tired. Chronic pain is best managed by pain specialists or primary care physicians, so narcotic refills are not routinely dispensed in the ED. DO NOT take multiple medications containing acetaminophen (Tylenol), such as many narcotic drug combinations and [id number] cold medicines. * Attachments The following attachments cannot be sent through Care Everywhere. * Nausea and Vomiting Discharge Instructions, Adult (Polish) documented in this encounter Medications at Time of Discharge ondansetron 4 MG disintegrating tablet Take 1 tablet (4 mg total) by mouth every 8 (eight) hours as needed. 20 tablet 11/30/2021 2 ondansetron 4 MG disintegrating tablet Take 1 [...] as of this encounter ED Notes * SUSAN Gross - 11/30/2021 1:36 PM CDT [place], [place] EMERGENCY DEPARTMENT ENCOUNTER HISTORICAL INFORMATION Primary Care Doctor: LESLI GRIFFITH MD Patient information was obtained primarily from the patient, nursing notes. History/Exam limitations: None Provider at Bedside Date/Time Event User Comments 11/30/21 6707 Provider at Bedside Assessing Patient JASMYN DICKINSON -- CHIEF COMPLAINT Nausea Chief Complaint Patient presents with ??? Nausea HPI Aj Juan Lunsford is a 21-year-old male hx GERD, cannabinoid hyperemesis syndrome who presents with nausea and one episode of vomiting. States he ran out of his zofran and has been unable to take omeprazole today. He also reports eating pizza and states he knows that is not good for his acid reflux because of the red sauce. States he has not used cannabis. PAST MEDICAL HISTORY Past Medical History: Diagnosis Date ??? Cannabinoid hyperemesis syndrome ??? Pneumonia SURGICAL HISTORY Past Surgical History: Procedure Laterality Date ??? OTHER PROCEDURE ear tubes ??? TONSILLECTOMY CURRENT MEDICATIONS Current Facility-Administered Medications: ??? ondansetron (ZOFRAN) injection 4 mg, 4 mg, Intravenous, Once, SUSAN Gross Current Outpatient Medications: ??? ondansetron 4 MG disintegrating tablet, Take 1 tablet (4 mg total) by mouth every 8 (eight) hours as needed., Disp: 20 tablet, Rfl: 0 ??? ondansetron 4 MG disintegrating tablet, Take 1 tablet (4 mg total) by mouth every 8 (eight) hours as needed for Nausea., Disp: 20 tablet, Rfl: 0 ??? predniSONE 20 MG tablet, Take 2 po for 3 days then 1 1/2 po for 3 days then 1 po for 3 days then 1/2 po for 3 days, Disp: 15 tablet, Rfl: 0 ALLERGIES No Known Allergies FAMILY HISTORY Family History Problem Relation Name Age of Onset ??? Cancer Mother ??? Diabetes Paternal Aunt ??? Diabetes Paternal Uncle ??? Diabetes Maternal Grandfather SOCIAL HISTORY Social History Socioeconomic History ??? Marital status: Single Tobacco Use ??? Smoking status: Never Smoker ??? Smokeless tobacco: Never Used Vaping Use ??? Vaping Use: Never used Substance and Sexual Activity ??? Alcohol use: Not Currently ??? Drug use: Not Currently Types: Marijuana Comment: Quit Marijuana last July REVIEW OF SYSTEMS Constitutional: Denies fever, chills, weight loss or weakness. Skin: Denies rash. HEENT: Denies sore throat or ear pain. Respiratory: Denies cough or shortness of breath. Cardiovascular: Denies chest pain, palpitations or swelling. GI: +Nausea, vomiting (x1). Denies abdominal pain or diarrhea. : Denies dysuria, urinary frequency. Musculoskeletal: Denies back pain. Neurologic: Denies headache, focal weakness or sensory changes. Psychiatric: Denies depression, suicidal ideation or homicidal ideation. See HPI for further details. All systems negative except as marked. Physical Exam VITAL SIGNS: Filed Vitals: 11/30/21 1333 BP: (!) 139/90 Pulse: 95 Resp: 18 Temp: 95.6 ??F (35.3 ??C) TempSrc: Temporal SpO2: 97% Weight: (!) 144.4 kg (318 lb 5.5 oz) Height: 6' 1 (1.854 m) Constitutional: Well developed, No acute distress, Non-toxic appearance. Integument: Warm, Dry, No erythema, No rash. HEENT: Normocephalic, Atraumatic, Conjunctiva normal Neck- Normal range of motion, Supple Back- Normal range of motion, No gross abnormality Respiratory: Normal breath sounds, No respiratory distress. Cardiovascular: Normal heart rate, Normal rhythm GI: Soft, No tenderness to palpation, No guarding or rebound. Musculoskeletal: Good ROM, no deformities noted Neurologic: Alert & oriented x 3, No focal deficits noted. Psychiatric: Affect normal, Judgment normal, Mood normal. EKG (interpreted by ED provider) No results found for this visit on 11/30/21. LABORATORY Results for orders placed or performed during the hospital encounter of 11/30/21 CBC W/DIFF AUTOMATED Result Value Ref Range WBC 11.2 (H) 4.5 - 11.0 x10'3/uL RBC 5.80 4.70 - 6.10 x10'6/uL HGB 16.5 14.0 - 18.0 G/DL HCT 48.4 43.0 - 54.0 % MCV 83.4 80.0 - 94.0 FL MCH 28.4 27.0 - 31.0 PG MCHC 34.1 32.0 - 36.0 G/DL RDW 12.9 11.5 - 14.5 % PLT 240 130 - 400 x10'3/uL MPV 11.0 9.3 - 12.2 FL DIFFERENTIAL TYPE AUTOMATED DIFFERENTIAL NEUTROPHILS 79.1 % LYMPHOCYTES 14.4 % MONOCYTES 4.9 % EOSINOPHILS 1.0 % BASOPHILS 0.3 % IMMATURE GRANS 0.3 % ABS. NEUTROPHILS TOTAL 8.88 (H) 1.80 - 7.70 x10'3/uL ABS. LYMPHOCYTES 1.62 1.00 - 4.80 x10'3/uL ABS. MONOCYTES 0.55 0.30 - 0.82 x10'3/uL ABS. EOSINOPHILS 0.11 0.04 - 0.54 x10'3/uL ABS. BASOPHILS 0.03 0.01 - 0.08 x10'3/uL ABS. IMMATURE GRANULOCYTES 0.03 0.00 - 0.49 x10'3/uL COMPREHENSIVE METABOLIC PANEL Result Value Ref Range GLUCOSE 114 (H) 70 - 99 MG/DL BUN 12 7 - 18 MG/DL CREATININE S/P/B 0.93 0.7 - 1.3 MG/DL SODIUM 141 136 - 145 MMOL/L POTASSIUM 3.9 3.5 - 5.1 MMOL/L CHLORIDE S/P/B 107 100 - 108 MMOL/L CO2 27.1 21 - 32 MMOL/L CALCIUM 9.8 8.5 - 10.1 MG/DL BILIRUBIN TOTAL S/P/B 0.9 0.2 - 1.2 MG/DL TOTAL PROTEIN S/P/B 7.9 6.4 - 8.2 G/DL ALBUMIN S/P/B 4.0 3.4 - 5.0 G/DL AST 20 15 - 37 U/L ALT 34 16 - 60 U/L ALKALINE PHOSPHATASE S/P/B 97 50 - 136 U/L ANION GAP 6.9 5 - 15 MMOL/L BUN CREATININE RATIO 12.8 6 - 26 A/G RATIO 1.0 1.0 - 2.0 RATIO GFR ESTIMATE >90 >90 ML/MIN/1.73 M2 LIPASE Result Value Ref Range LIPASE 67 (L) 73 - 393 UNITS/L RADIOLOGY No orders to display PROCEDURES Procedures MDM Patient notes improvement with treatment in the emergency department. He reports no abdominal pain only nausea. He is now tolerating p.o. intake. Suspect exacerbation of underlying illnesses of GERD.Will discharge home with Rx for Zofran. Advised avoiding exacerbating foods. I have discussed today's findings with the patient and provided information regarding the likely diagnosis. The patient has been given information regarding their treatment, follow up and concerning symptoms for which they should seek urgent or emergent attention. I have expressed the the importance of seeking attention should there be any new, or worsening symptoms or persistence of their condition. The patient is stable at discharge and has verbalized understanding of these instructions. Impression/Disposition SNOMED CT(R) 1. Nausea & vomiting NAUSEA AND VOMITING Disposition: Discharge Medications ondansetron (ZOFRAN) injection 4 mg (has no administration in time range) ondansetron (ZOFRAN) injection 4 mg (4 mg Intravenous Given 11/30/21 1429) sodium chloride 0.9% bolus infusion SOLN 1,000 mL (0 mLs Intravenous Infusion Stop Time 11/30/21 1500) famotidine (PF) (PEPCID) injection 20 mg (20 mg Intravenous Given 11/30/21 1430) Current Discharge Medication List START taking these medications Details !! ondansetron 4 MG disintegrating tablet Take 1 tablet (4 mg total) by mouth every 8 (eight) hoursas needed. Qty: 20 tablet, Refills: 0 Class: Eprescribe Pharmacy: [facility]/pharmacy #[id number] - [place], [place] - [address] [place], [place] [address]J[place]AN [place] ( #: [phone]) !! - Potential duplicate medications found. Please discuss with provider. SUSAN GROSS PA 11/30/21 1543 Cosigned by Sunny Soliman MD at 11/30/2021 6:50 PM CDT * Meghann Hanna RN - 11/30/2021 1:34 PM CDT Patient to triage with c/o nausea. Reports he usually has zofran at home for cannabis hyperemesis but has run out. Also reports eating pizza last night, which causes reflux and nausea. Denies abdominal pain. documented in this encounter Plan of Treatment Not on file documented as of this encounter Procedures Procedure Name Priority Date/Time Associated Diagnosis Comments COMPREHENSIVE METABOLIC PANEL STAT 11/30/2021 2:27 PM CDT CBC W/DIFF AUTOMATED STAT 11/30/2021 2:27 PM CDT LIPASE STAT 11/30/2021 2:27 PM CDT documented in this encounter Results * (ABNORMAL) LIPASE (11/30/2021 2:27 PM CDT) LIPASE 67(L) 73 - 393 UNITS/L 11/30/2021 3:01 PM CDT [facility] 11/30/2021 2:27 PM CDT Jasmyn Dickinson PA LABORATORY Final Resul t [facility] [address] [place] [address], * (ABNORMAL) COMPREHENSIVE METABOLIC PANEL (11/30/2021 2:27 PM CDT) GLUCOSE 114(H) 70 - 99 MG/DL 11/30/2021 3:01 PM CDT [facility] BUN 12 7 - 18 MG/DL 11/30/2021 3:01 PM CDT [facility] CREATININE S/P/B 0.93 0.7 - 1.3 MG/DL 11/30/2021 3:01 PM CDT [facility] SODIUM S/P/B 141 136 - 145 MMOL/L 11/30/2021 3:01 PM CDT [facility] POTASSIUM S/P/B 3.9 3.5 - 5.1 MMOL/L 11/30/2021 3:01 PM T [facility] CHLORIDE S/P/B 107 100 - 108 MMOL/L 11/30/2021 3:01 PM T [facility] CO2 27.1 21 - 32 MMOL/L 11/30/2021 3:01 PM T [facility] CALCIUM S/P/B 9.8 8.5 - 10.1 MG/DL 11/30/2021 3:01 PM T [facility] BILIRUBIN TOTAL S/P/B 0.9 0.2 - 1.2 MG/DL 11/30/2021 3:01 PM [facility] Comment: THIS ASSAY IS NOT RECOMMENDED FOR PATIENTS UNDERGOING TREATMENT WITH ELTROMBOPAG DUE TO THE POTENTIAL FOR FALSELY ELEVATED RESULTS. TOTAL PROTEIN S/P/B 7.9 6.4 - 8.2 G/DL 11/30/2021 3:01 PM T [facility] ALBUMIN S/P/B 4.0 3.4 - 5.0 G/DL 11/30/2021 3:01 PM T [facility] AST 20 15 - 37 U/L 11/30/2021 3:01 PM [facility] ALT 34 16 - 60 U/L 11/30/2021 3:01 PM T [facility] ALKALINE PHOSPHATASE S/P/B 97 50 - 136 U/L 11/30/2021 3:01 PM [facility] ANION GAP 6.9 5 - 15 MMOL/L 11/30/2021 3:01 PM T [facility] BUN CREATININE RATIO 12.8 6 - 26 11/30/2021 3:01 PM [facility] A/G RATIO 1.0 1.0 - 2.0 RATIO 11/30/2021 3:01 PM [facility] GFR ESTIMATE >90 >90 ML/MIN/1.7 3 M2 11/30/2021 3:01 PM CDT [facility] Comment: NOTE: eGFR is not calculated for patients <18 years of age. This is an estimated GFR calculation using the new CKD EPI creatinine equation without race and so does not require a correction factor for race. This estimated GFR should not be used for calculating drug doses. 11/30/2021 2:27 PM CDT us Jasmyn DAVIS LABORATORY Final Resul t [facility] [address] [place] [address], * (ABNORMAL) CBC W/DIFF AUTOMATED (11/30/2021 2:27 PM CDT) WBC 11.2(H) 4.5 - 11.0 x10'3/uL 11/30/2021 3:04 PM CDT [facility] RBC 5.80 4.70 - 6.10 x10'6/uL 11/30/2021 3:04 PM CDT [facility] HGB 16.5 14.0 - 18.0 G/DL 11/30/2021 3:04 PM CDT [facility] HCT 48.4 43.0 - 54.0 % 11/30/2021 3:04 PM CDT [facility] MCV 83.4 80.0 - 94.0 FL 11/30/2021 3:04 PM CDT [facility] MCH 28.4 27.0 - 31.0 PG 11/30/2021 3:04 PM CDT [facility] MCHC 34.1 32.0 - 36.0 G/DL 11/30/2021 3:04 PM CDT [facility] RDW 12.9 11.5 - 14.5 % 11/30/2021 3:04 PM CDT [facility] PLT 240 130 - 400 x10'3/uL 11/30/2021 3:04 PM CDT [facility] MPV 11.0 9.3 - 12.2 FL 11/30/2021 3:04 PM CDT [facility] DIFFERENTIAL TYPE AUTOMATED DIFFERENTIAL 11/30/2021 3:04 PM CDT [facility] NEUTROPHILS % 79.1 % 11/30/2021 3:04 PM CDT [facility] LYMPHOCYTES % 14.4 % 11/30/2021 3:04 PM CDT [facility] MONOCYTES % 4.9 % 11/30/2021 3:04 PM CDT [facility] EOSINOPHILS 1.0 % 11/30/2021 3:04 PM CDT [facility] BASOPHILS 0.3 % 11/30/2021 3:04 PM CDT [facility] IMMATURE GRANS % 0.3 % 12/01/19 3:04 PM CDT [facility] ABS. NEUTROPHILS TOTAL 8.88(H) 1.80 - 7.70 x10'3/uL 11/30/2021 3:04 PM CDT [facility] ABS. LYMPHOCYTES 1.62 1.00 - 4.80 x10'3/uL 11/30/2021 3:04 PM CDT [facility] ABS. MONOCYTES 0.55 0.30 - 0.82 x10'3/uL 11/30/2021 3:04 PM CDT [facility] ABS. EOSINOPHILS 0.11 0.04 - 0.54 x10'3/uL 11/30/2021 3:04 PM CDT [facility] ABS. BASOPHILS 0.03 0.01 - 0.08 x10'3/uL 11/30/2021 3:04 PM CDT [facility] ABS. IMMATURE GRANULOCYTES 0.03 0.00 - 0.49 x10'3/uL 11/30/2021 3:04 PM CDT [facility] 11/30/2021 2:27 PM CDT Jasmyn DAVIS LABORATORY Final Resul t [facility] [address] [place] [address], documented in this encounter Visit Diagnoses Diagnosis Nausea & vomiting- Primary Nausea with vomiting documented in this encounter Administered Medications Inactive Administered Medications - up to 3 most recent administrations Medication Order MAR Action Action Date Dose Rate Site famotidine (PF) (PEPCID) injection 20 mg 20 mg, Intravenous, Once, 1 dose, On Tania 11/30/21 at 1345, IV Push over 2 minutes Given 11/30/2021 2:30 PM CDT 20 mg ondansetron (ZOFRAN) injection 4 mg 4 mg, Intravenous, Once, 1 dose, On Tania 11/30/21 at 1345, IV push over 2-5 minutes. Given 11/30/2021 2:29 PM CDT 4 mg ondansetron (ZOFRAN) injection 4 mg 4 mg, Intravenous, Once, 1 dose, On Tania 11/30/21 at 1545, IV push over 2-5 minutes. Given 11/30/2021 3:45 PM CDT 4 mg sodium chloride 0.9% bolus infusion SOLN 1,000 mL 1,000 mL, Intravenous, Administer over 15 Minutes, Once, 1 dose, On Tania 11/30/21 at 1345 New Bag 11/30/2021 2:29 PM CDT 1,000 mLs documented in this encounter Active and Recently Administered Medications Times are shown in CDT. Scheduled Medication Order 11/28/2021 11/29/2021 11/30/2021 famotidine (PF) (PEPCID) injection 20 mg (COMPLETED) 20 mg, Intravenous, Once, 1 dose, On Tania 11/30/21 at 1345, IV Push over 2 minutes 1430 (Given - Provid er: Sunny Gil RN) ondansetron (ZOFRAN) injection 4 mg (COMPLETED) 4 mg, Intravenous, Once, 1 dose, On Tania 11/30/21 at 1345, IV push over 2-5 minutes. 1429 (Given - Provid er: Sunny Gil RN) ondansetron (ZOFRAN) injection 4 mg (COMPLETED) 4 mg, Intravenous, Once, 1 dose, On Tania 11/30/21 at 1545, IV push over 2-5 minutes. 1545 (Given - Provid er: Sunny Gil RN) sodium chloride 0.9% bolus infusion SOLN 1,000 mL (COMPLETED) 1,000 mL, Intravenous, Administer over 15 Minutes, Once, 1 dose, On Tania 11/30/21 at 1345 1429 (New Bag - Prov ider: Sunny Gil RN)1500 (Infusion Stop Time - Provider: Sunny Gil RN) documented in this encounter Care Teams 3D Designer Relationship Specialty Start Date End Date Lesli Griffith MD PCP - General FAMILY PRACTICE 11/30/21 documented as of this encounter
--- OUTSIDE RECORDS SUMMARY | 2024-05-26 02:41 | XMS_ITS | Encounter Summary ---
Author Organization [facility] Address [address] [place] [address]. [place] [address] [place] [address] Care Team Providers Care Superintendent Of Generation Name Role Phone Osbaldo Hong MD Primary Care Provider Soumya Sandhu PA-C Primary Care Provider [phone] Encounter Details Date Type Department Care Team (Latest Contact Info) Description 02/05/2020 Scan HEALTH INFO SRVCS Scanned, Documents Social [...] on filedocumented in this encounter Care Teams Superintendent Of Generation Relationship Specialty Start Date End Date Osbaldo Hong MD PCP - General FAMILY PRACTICE 01/04/20 06/25/21 Soumya Franks PA-C [address] [place] [address] PCP - General PHYSICIAN VERTICA ARCHITECT 06/26/21 07/03/21 documented as of this encounter
--- OUTSIDE RECORDS SUMMARY | 2024-05-26 02:41 | XMS_ITS | Encounter Summary ---
Author Organization [facility] Address [address] [place] [address]. [place], [place] [address] [place] [id number] Care Team Providers Care Final Assembler Name Role Phone Osbaldo Hong MD Primary Care Provider Unav ailable Encounter Details Date Type Department Care Team (Latest Contact Info) Description 01/07/2022 Travel Social History Tobacco Use Types Packs/Day [...] on filedocumented in this encounter Care Teams Final Assembler Relationship Specialty Start Date End Date Osbaldo Hong MD PCP - General FAMILY PRACTICE 11/30/21 documented as of this encounter
--- OUTSIDE RECORDS SUMMARY | 2024-05-26 02:41 | XMS_ITS | Encounter Summary ---
Author Organization [facility] Address [address] [place] [address]. [place], [place] [id number] [place] [address] Care Team Providers Care Strap Buckler Name Role Phone Osbaldo Hong MD Primary Care Provider Unav ailable Reason for Visit * Reason Comments Nausea Encounter Details Date Type Department Care Team ([facility] st Contact Info) Description 01/07/2022 11:14 PM CDT - 01/08/2022 12:50 AM CDT Emergency [facility] [place] [address] Alvaro Vasquez MD [address] [place] [id number] Nausea Discharge Disposition: Left Against Medical Advice Social History Tobacco Use Types Packs/Day Years [...] Sign Reading Time Taken Comments Blood Pressure 134/106 01/07/2022 11:01 PM CDT Pulse 94 01/07/2022 11:01 PM CDT Temperature 36.3 ??C (97.3 ??F) 01/07/2022 11:01 PM C DT Respiratory Rate 20 01/07/2022 11:01 PM CDT Oxygen Saturation 98% 01/07/2022 11:01 PM CDT Inhaled Oxygen Concentration - - Weight 136.9 kg (301 lb 13 oz) 01/07/2022 11:01 PM CDT Height 185.4 cm (6' 1 ) 01/07/2022 11:01 PM CDT Body Mass Index 39.82 01/07/2022 11:01 PM CDT documented in this encounter Medications at Time [...] as of this encounter ED Notes * Raffi Navarrete RN - 01/08/2022 12:42 AM CDT This RN educated pt on risks of leaving against medical advice and benefits of staying for more treatment. Pt verbalized understanding. Pt signed AMA form. * Alvaro Vasquez MD - 01/07/2022 11:26 PM CDT Emergency Department Note Chief Complaint Chief Complaint Patient presents with ??? Nausea History of Present Illness The patient is a 21-year-old male who presents with nausea and vomiting. 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 He reports similar symptoms in the past. He reports diffuse abdominal cramping. No specific areas of pain. No fevers. No chills. No diarrhea or constipation. No urinary complaints. Last used marijuana 3 hours prior to arrival. No prior abdominal surgical history. Medical History ALLERGIES: No Known Allergies MEDICATIONS: Prior to Admission medications Medication Sig Start Date End Date Taking? Authorizing Provider ondansetron 4 MG disintegrating tablet Take 1 tablet (4 mg total) by mouth every 8 (eight) hours asneeded for Nausea. 10/10/21 SUSAN Brooks predniSONE 20 MG tablet Take 2 po for 3 days then 1 1/2 po for 3 days then 1 po for 3 days then 1/2 po for 3 days 07/05/21 Soumya Franks PA-C PAST MEDICAL HISTORY: Past Medical History: [...] Review of Systems Review of Systems Constitutional: Denies fever Eyes: Denies visual changes HENT: Denies sore throat or ear pain. Respiratory: Denies shortness of breath. Cardiovascular: Denies chest pain GI: See HPI Musculoskeletal: Denies back pain Skin: Denies rash. Neurologic: Denies headache Endocrine: Denies hypoglycemia Lymphatic: Denies swollen glands. Psychiatric: Denies depression, SI See HPI for further details. All systems negative except as marked. Physical Exam Vital 24 Hour Range Most Recent Value Temperature Temp Min: 97.3 ??F (36.3 ??C) Max: 97.3 ??F (36.3 ??C) 97.3 ??F (36.3 ??C) Pulse Pulse Min: 94 Max: 94 94 Respiratory Resp Min: 20 Max: 20 20 Blood Pressure BP Min: 134/106 Max: 134/106 (!) 134/106 Pulse Oximetry SpO2 Min: 98 % Max: 98 % 98 % O2 No data recorded Vital Most Recent Value First Value Weight (!) 136.9 kg (301 lb 13 oz) Weight: (!) 136.9 kg (301 lb 13 oz) Height 6' 1 (185.4 cm) Height: 6' 1 (185.4 cm) BMI (!) 39.83 N/A Physical Exam Constitutional: Well developed, Well nourished, No acute distress, Non-toxic appearance. HEENT: Normocephalic, Atraumatic, Bilateral external ears normal, EOMI, Conjunctiva normal, No discharge.Oropharynx moist, Nose normal. Respiratory: Normal breath sounds, No respiratory distress. Cardiovascular: Normal heart rate, Normal rhythm GI: Soft, No tenderness, No masses, No pulsatile masses. Neck: Normal range of motion, No tenderness, Supple, No stridor. Back: No tenderness Extremities: Intact distal pulses, No edema, No tenderness, Good range of motion in all major joints. Skin: Warm, Dry, No erythema, No rash. Neurologic: Alert & oriented x 3, Normal motor function, Normal sensory function, No focal deficits noted. Psychiatric: Affect normal, Judgment normal, Mood normal. Medical decision making: Problems: Nausea, vomiting, marijuana use. Differential: Electrolyte abnormalities, dehydration, other Plan for labs Treat with antiemetics and fluids Diagnostic Studies / Procedures ELECTROCARDIOGRAMS: No results found for this visit on 01/07/22. PULSE OX: SpO2: 98 % Interpretation: Normal LABORATORY STUDIES: Results for orders placed or performed during the hospital encounter of 01/07/22 CBC W/DIFF AUTOMATED Result Value Ref Range WBC 19.4 (H) 4.5 - 11.0 x10'3/uL RBC 5.94 4.70 - 6.10 x10'6/uL HGB 17.0 14.0 - 18.0 G/DL HCT 49.0 43.0 - 54.0 % MCV 82.5 80.0 - 94.0 FL MCH 28.6 27.0 - 31.0 PG MCHC 34.7 32.0 - 36.0 G/DL RDW 13.2 11.5 - 14.5 % PLT 302 130 - 400 x10'3/uL MPV 11.3 9.3 - 12.2 FL DIFFERENTIAL TYPE MANUAL DIFFERENTIAL SEG NEUTROPHILS 87 % LYMPHOCYTES 4 % MONOCYTES 6 % BANDS 1 % METAMYELOCYTES 2 % ABS. NEUTROPHIL COUNT 17.07 (H) 1.80 - 7.70 x10'3/uL ABS.LYMPHOCYTES CALCULATED 0.78 (L) 1.00 - 4.80 x10'3/uL ABS. MONOCYTES CALCULATED 1.16 (H) 0.30 - 0.82 x10'3/uL ABS. METAMYELOCYTES 0.39 (H) 0.00 x10'3/uL RBC MORPHOLOGY RBC MORPHOLOGY APPEARS NORMAL. SLIDE REVIEWED. PLT EST. ADEQUATE COMPREHENSIVE METABOLIC PANEL Result Value Ref Range GLUCOSE 154 (H) 70 - 99 MG/DL BUN 25 (H) 7 - 18 MG/DL CREATININE S/P/B 1.44 (H) 0.7 - 1.3 MG/DL SODIUM 138 136 - 145 MMOL/L POTASSIUM 3.8 3.5 - 5.1 MMOL/L CHLORIDE S/P/B 105 100 - 108 MMOL/L CO2 24.5 21 - 32 MMOL/L CALCIUM 10.5 (H) 8.5 - 10.1 MG/DL BILIRUBIN TOTAL S/P/B 1.3 (H) 0.2 - 1.2 MG/DL TOTAL PROTEIN S/P/B 8.6 (H) 6.4 - 8.2 G/DL ALBUMIN S/P/B 4.4 3.4 - 5.0 G/DL AST 19 15 - 37 U/L ALT 57 16 - 60 U/L ALKALINE PHOSPHATASE S/P/B 97 50 - 136 U/L ANION GAP 8.5 5 - 15 MMOL/L BUN CREATININE RATIO 17.4 6 - 26 A/G RATIO 1.0 1.0 - 2.0 RATIO GFR ESTIMATE 70 (L) >90 ML/MIN/1.73 M2 LIPASE Result Value Ref Range LIPASE 54 (L) 73 - 393 UNITS/L IMAGING STUDIES ED Course Labs with 19,000 white count. Mild signs of dehydration. No relief in symptoms after fluids, Zofran, Haldol. Discussed with him the work-up. Recommended CT scan and reevaluation. The patient indicated the desire to leave AGAINST MEDICAL ADVICE. We discussed with the patient theinitial evaluation as well as plan of care. We discussed the portion of the workup completed as well as the pending studies and/or likely disposition. We discussed the risk of leaving AGAINST MEDICALADVICE as well as other alternatives. The patient is capable of making decisions and understands the risks. Discussed medications needed as well as appropriate follow-up with the patient. Medications morphine injection 4 mg (4 mg Intravenous Not Given 01/08/22 004) ondansetron (ZOFRAN) injection 4 mg (4 mg Intravenous Given 01/07/222331) sodium chloride 0.9% bolus infusion 1,000 mL (0 mLs Intravenous Infusion Stop Time 01/08/22 0040) haloperidol lactate (HALDOL) injection 2 mg (2 mg Intravenous Given 01/07/222338) ondansetron (ZOFRAN) injection 4 mg (4 mg Intravenous Given 01/08/22 0035) Clinical Impression Nausea and vomiting (Primary) Leukocytosis Discharge Medication List as of 01/08/2022 12:52 AM Disposition: AMA Follow-Up: No follow-up provider specified. ALVARO VASQEUZ MD 01/08/2022 Alvaro Vasquez MD 01/08/22 0104 * Lg Hayden RN - 01/07/2022 11:04 PM CDT Patient ambulatory to triage from home with complaint of vomiting and nausea, patient states that he has been nauseous since 01/06 and has had 8 episodes of emesis, patient denies anyone around him being sick with similar symptoms, patient is A&Ox4 denies any other complaints at this time. documented in this encounter Plan of Treatment Not on file documented as of this encounter Procedures Procedure Name Priority Date/Time Associated Diagnosis Comments COMPREHENSIVE METABOLIC PANEL STAT 01/07/2022 11:33 PM CDT CBC W/DIFF AUTOMATED STAT 01/07/2022 11:33 PM CDT LIPASE STAT 01/07/2022 11:33 PM CDT documented in this encounter Results * (ABNORMAL) LIPASE (01/07/2022 11:33 PM CDT) LIPASE 54(L) 73 - 393 UNITS/L 01/08/2022 12:05 AM CDT [facility] 01/07/2022 11:3 3 PM CDT us Alvaro Vasquez MD LABORATORY Final Result [facility] [address] [place] [address], * (ABNORMAL) COMPREHENSIVE METABOLIC PANEL (01/07/2022 11:33 PM CDT) GLUCOSE 154(H) 70 - 99 MG/DL 01/08/2022 12:05 AM CDT [facility] BUN 25(H) 7 - 18 MG/DL 01/08/2022 12:05 AM CDT [facility] CREATININE S/P/B 1.44(H) 0.7 - 1.3 MG/DL 01/08/2022 12:05 AM CDT [facility] SODIUM S/P/B 138 136 - 145 MMOL/L 01/08/2022 12:05 AM CDT [facility] POTASSIUM S/P/B 3.8 3.5 - 5.1 MMOL/L 01/08/2022 12:05 AM CDT [facility] CHLORIDE S/P/B 105 100 - 108 MMOL/L 01/08/2022 12:05 AM CDT [facility] CO2 24.5 21 - 32 MMOL/L 01/08/2022 12:05 AM CDT [facility] CALCIUM S/P/B 10.5(H) 8.5 - 10.1 MG/DL 01/08/2022 12:05 AM [facility] BILIRUBIN TOTAL S/P/B 1.3(H) 0.2 - 1.2 MG/DL 01/08/2022 12:05 AM [facility] Comment: THIS ASSAY IS NOT RECOMMENDED FOR PATIENTS UNDERGOING TREATMENT WITH ELTROMBOPAG DUE TO THE POTENTIAL FOR FALSELY ELEVATED RESULTS. TOTAL PROTEIN S/P/B 8.6(H) 6.4 - 8.2 G/DL 01/08/2022 12:05 AM [facility] ALBUMIN S/P/B 4.4 3.4 - 5.0 G/DL 01/08/2022 12:05 AM [facility] AST 19 15 - 37 U/L 01/08/2022 12:05 AM [facility] ALT 57 16 - 60 U/L 01/08/2022 12:05 AM [facility] ALKALINE PHOSPHATASE S/P/B 97 50 - 136 U/L 01/08/2022 12:05 AM [facility] ANION GAP 8.5 5 - 15 MMOL/L 01/08/2022 12:05 AM [facility] BUN CREATININE RATIO 17.4 6 - 26 01/08/2022 12:05 AM [facility] A/G RATIO 1.0 1.0 - 2.0 RATIO 01/08/2022 12:05 AM [facility] GFR ESTIMATE 70(L) >90 ML/MIN/1.7 3 M2 01/08/2022 12:05 AM [facility] Comment: NOTE: eGFR is not calculated for patients <18 years of age. This is an estimated GFR calculation using the new CKD EPI creatinine equation without race and so does not require a correction factor for race. This estimated GFR should not be used for calculating drug doses. 01/07/2022 11:3 3 PM CDT us Alvaro Vasquez MD LABORATORY Final Result [facility] [address] [place] [address], [place] [phone] * (ABNORMAL) CBC W/DIFF AUTOMATED (01/07/2022 11:33 PM CDT) WBC 19.4(H) 4.5 - 11.0 x10'3/uL 01/07/2022 11:45 PM CDT [facility] RBC 5.94 4.70 - 6.10 x10'6/uL 01/07/2022 11:45 PM CDT [facility] HGB 17.0 14.0 - 18.0 G/DL 01/07/2022 11:45 PM CDT [facility] HCT 49.0 43.0 - 54.0 % 01/07/2022 11:45 PM CDT [facility] MCV 82.5 80.0 - 94.0 FL 01/07/2022 11:45 PM CDT [facility] MCH 28.6 27.0 - 31.0 PG 01/07/2022 11:45 PM CDT [facility] MCHC 34.7 32.0 - 36.0 G/DL 01/07/2022 11:45 PM CDT [facility] RDW 13.2 11.5 - 14.5 % 01/07/2022 11:45 PM CDT [facility] PLT 302 130 - 400 x10'3/uL 01/07/2022 11:45 PM CDT [facility] MPV 11.3 9.3 - 12.2 FL 01/07/2022 11:45 PM CDT [facility] DIFFERENTIAL TYPE MANUAL DIFFERENTIAL 01/08/2022 12:07 AM CDT [facility] SEG NEUTROPHILS 87 % 12:07 AM CDT [facility] LYMPHOCYTES 4 % 01/08/2022 12:07 AM CDT [facility] MONOCYTES 6 % 01/08/2022 12:07 AM CDT [facility] BANDS 1 % 01/08/2022 12:07 AM CDT [facility] METAMYELOCYTES 2 % 01/08/2022 12:07 AM CDT [facility] ABS. NEUTROPHILS CALCULATED 17.07(H) 1.80 - 7.70 x10'3/uL 01/08/2022 12:07 AM CDT [facility] ABS.LYMPHOCYTES CALCULATED 0.78(L) 1.00 - 4.80 x10'3/uL 01/08/2022 12:07 AM CDT [facility] ABS. MONOCYTES CALCULATED 1.16(H) 0.30 - 0.82 x10'3/uL 01/08/2022 12:07 AM CDT [facility] ABS. METAMYELOCYTES 0.39(H) 0.00 x10'3/uL 01/08/2022 12:07 AM CDT [facility] RBC MORPHOLOGY RBC MORPHOLOGY APPEARS NORMAL. SLIDE REVIEWED. 01/08/2022 12:07 AM CDT [facility] PLT EST. ADEQUATE 01/08/2022 12:07 AM T [facility] 01/07/2022 11:3 3 PM CDT us Alvaro Vasquez MD LABORATORY Final Result [facility] [address] [place] [address], documented in this encounter Visit Diagnoses Diagnosis Nausea and vomiting- Primary Nausea with vomiting Leukocytosis Leukocytosis, unspecified documented in this encounter Administered Medications Inactive Administered Medications - up to 3 most recent administrations Medication Order MAR Action Action Date Dose Rate Site haloperidol lactate (HALDOL) injection 2 mg 2 mg, Intravenous, Once, 1 dose, On 01/07/22 at 2345, IF giving IV, do not give faster than 5 mg/min IV; observe for hypotension. Given 01/07/2022 11:39 PM CDT 2 mg ondansetron (ZOFRAN) 4 MG/2ML injection 1 dose, Starting on Sat01/08/22 at 0033, Until Sat01/08/22 at 0035, Created by cabinet override ondansetron (ZOFRAN) injection 4 mg 4 mg, Intravenous, Once, 1 dose, On 01/07/22 at 2330, IV push over 2-5 minutes. Given 01/07/2022 11:32 PM CDT 4 mg ondansetron (ZOFRAN) injection 4 mg 4 mg, Intravenous, Once, 1 dose, On Sat01/08/22 at 0030, IV push over 2-5 minutes. Given 01/08/2022 12:35 AM CDT 4 mg sodium chloride 0.9% bolus infusion 1,000 mL 1,000 mL, Intravenous, Administer over 15 Minutes, Bolus (Once), 1 dose, On 01/07/22 at 2330 New Bag 01/07/2022 11:33 PM CDT 1,000 mLs documented in this encounter Active and Recently Administered Medications Times are shown in CDT. Scheduled Medication Order 01/06/2022 01/07/2022 01/08/2022 haloperidol lactate (HALDOL) injection 2 mg (COMPLETED) 2 mg, Intravenous, Once, 1 dose, On Sat01/07/22 at 2345, IF giving IV, do not give faster than 5 mg/min IV; observe for hypotension. 2339 (Given - Provider: Raffi Navarrete, CHERY) morphine injection 4 mg 4 mg, Intravenous, Once, 1 dose, On Sat01/08/22 at 0030 0047 (Not Given - Provider: Raffi Navarrete, CHERY - Reason: Patient/family declined) ondansetron (ZOFRAN) injection 4 mg (COMPLETED) 4 mg, Intravenous, Once, 1 dose, On 01/07/22 at 2330, IV push over 2-5 minutes. 2332 (Given - Provider: Raffi Navarrete RN) ondansetron (ZOFRAN) injection 4 mg (COMPLETED) 4 mg, Intravenous, Once, 1 dose, On Sat01/08/22 at 0030, IV push over 2-5 minutes. 0035 (Given - Provid er: Raffi Navarrete RN - Comment: Verbal order per Dr. Salvador) sodium chloride 0.9% bolus infusion 1,000 mL (COMPLETED) 1,000 mL, Intravenous, Administer over 15 Minutes, Bolus (Once), 1 dose, On Sat01/07/22 at 2330 2333 (New Bag - Provider: Raffi Navarrete RN) 0040 (Infusion Stop Time - Provider: Raffi Navarrete RN) documented in this encounter Care Teams Strap Buckler Relationship Specialty Start Date End Date Osbaldo Hong MD PCP - General FAMILY PRACTICE 11/30/21 documented as of this encounter
--- OUTSIDE RECORDS SUMMARY | 2024-05-26 02:41 | XMS_ITS | Encounter Summary ---
Author Organization [facility] Address [address] [place] [address]. [place] [address] [place] [address] Care Team Providers Care Audit Intern Name Role Phone Soumya Franks PA-C Primary Care Provider +1- [phone] Encounter Details Date Type Department Care Team (Latest Contact Info) Description 07/05/2021 Travel Social History Tobacco Use Types Packs/Day [...] Coronavirus/COVID-19? No / Unsure 07/05/2021 2:13 PM HAND MARKER documented as of this encounter Plan of Treatment Not on file documented as of this encounter Visit Diagnoses Not on filedocumented in this encounter Care Teams Audit Intern Relationship Specialty Start Date End Date Soumya Franks PA-C [address] [place] [address] PCP - General PHYSICIAN SUPERVISOR CELL MAINTENANCE 07/05/21 11/29/21 documented as of this encounter
--- OUTSIDE RECORDS SUMMARY | 2024-05-26 02:41 | XMS_ITS | Encounter Summary ---
Author Organization [facility] Address [address] [place] [address]. [place], [place] [address] [place] [address] Care Team Providers Care Tube Station Attendant Name Role Phone Osbaldo Hong MD Primary Care Provider Soumya Sandhu PA-C Primary Care Provider +1- [phone] Reason for Visit * Reason Comments CT (SCAN) Encounter Details Date Type Department Care Team (Latest Contact Info) Description 01/18/2020 Scan HEALTH INFO SRVCS Scanned, Documents CT (SCAN) Social History Tobacco Use Types [...] Priority Date/Time Associated Diagnosis Comments CT GENERIC 01/18/2020 documented in this encounter Results * CT GENERIC (01/18/2020) Anatomical Region Laterality Modality Other 01/18/2020 Narrative 01/18/2020 Ordered by an unspecified provider. us Documents Scanned SCANNING Final Result documented in this encounter Visit Diagnoses Not on filedocumented in this encounter Care Teams Tube Station Attendant Relationship Specialty Start Date End Date Osbaldo Hong MD PCP - General FAMILY PRACTICE 01/04/20 06/25/21 Soumya Franks PA-C [address] [place] [address] PCP - General PHYSICIAN FIRE PROTECTION FABRICATOR 06/26/21 07/03/21 documented as of this encounter
--- OUTSIDE RECORDS SUMMARY | 2024-05-26 02:41 | XMS_ITS | Encounter Summary ---
Author Organization [facility] Address [address] [place] [address]. [place], [place] [address] [place] [address] Care Team Providers Care Consultant [employer]. Vice President [employer] (Ex ) Name Role Phone Osbaldo Hong MD Primary Care Provider Soumya Sandhu PA-C Primary Care Provider [phone]- [phone] Reason for Visit * Reason Comments Lab (SCAN) Encounter Details Date Type Department Care Team (Latest Contact Info) Description 10/05/2020 Scan HEALTH INFO SRVCS Scanned, Documents Lab [...] Associated Diagnosis Comments OUTSIDE LAB (SCAN ORDER) 10/05/2020 documented in this encounter Results * OUTSIDE LAB (SCAN) (10/05/2020) 10/05/2020 Narrative 10/05/2020 Ordered by an unspecified provider. us Documents Scanned SCANNING Final Result documented in this encounter Visit Diagnoses Not on filedocumented in this encounter Care Teams Consultant [employer]. Vice President [employer] (Ex ) Relationship Specialty Start Date End Date Osbaldo Hong MD PCP - General FAMILY PRACTICE 01/04/20 06/25/21 Soumya Franks PA-C [address] [place] [address] PCP - General PHYSICIAN ENVIRONMENTAL WEB CRAWLER 06/26/21 07/03/21 documented as of this encounter
--- OUTSIDE RECORDS SUMMARY | 2024-05-26 02:41 | XMS_ITS | Encounter Summary ---
Author Organization [facility] Address [address] [place] [address]. [place] [address] [place] [address] Care Team Providers Care Data Entry Assistant Name Role Phone Osbaldo Hong MD Primary Care Provider Soumya Sandhu PA-C Primary Care Provider +1- [phone] Encounter Details Date Type Department Care Team (Latest Contact Info) Description 10/20/2020 Scan HEALTH INFO SRVCS Scanned, Documents Social [...] on filedocumented in this encounter Care Teams Data Entry Assistant Relationship Specialty Start Date End Date Osbaldo Hong MD PCP - General FAMILY PRACTICE 01/04/20 06/25/21 Soumya Franks PA-C [address] [place] [address] PCP - General PHYSICIAN ON CALL 06/26/21 07/03/21 documented as of this encounter
--- OUTSIDE RECORDS SUMMARY | 2024-05-26 02:41 | XMS_ITS | Encounter Summary ---
Author Organization [facility] Address [address] [place] [address]. [place], [place] [address] [place] [address] Care Team Providers Care Special Education Teacher Name Role Phone Osbaldo Hong MD Primary Care Provider Soumya Sandhu PA-C Primary Care Provider +1- [phone] Reason for Visit * Reason Comments Lab (SCAN) Encounter Details Date Type Department Care Team (Latest Contact Info) Description 08/23/2020 Scan HEALTH INFO SRVCS Scanned, Documents Lab [...] Priority Date/Time Associated Diagnosis Comments OUTSIDE LAB COVID-19 (SCAN ORDER) Routine 08/23/2020 documented in this encounter Results * (ABNORMAL) OUTSIDE LAB COVID-19 (SCAN) (08/23/2020) CORONAVIRUS SARS COV 2 PCR (RESP) DETECTED( Crit) NOT DETECTED HS ONBASE 08/23/2020 us Documents Scanned SCANNING Final Result [facility] ONBASE documented in this encounter Visit Diagnoses Not on filedocumented in this encounter Care Teams Special Education Teacher Relationship Specialty Start Date End Date Osbaldo Hong MD PCP - General FAMILY PRACTICE 01/04/20 06/25/21 Soumya Franks PA-C [address] [place] [address] PCP - General PHYSICIAN CLERICAL SPECIALIST 06/26/21 07/03/21 documented as of this encounter
--- OUTSIDE RECORDS SUMMARY | 2024-05-26 02:41 | XMS_ITS | Encounter Summary ---
Author Organization [facility] Address [address] [place] [address]. [place] [address] [place] [address] Care Team Providers Care Lodging House Keeper Name Role Phone Soumya Frnaks PA-C Primary Care Provider +1- [phone] Encounter Details Date Type Department Care Team (Latest Contact Info) Description 10/10/2021 Travel Social History Tobacco Use Types Packs/Day [...] AM CDT documented as of this encounter Plan of Treatment Not on file documented as of this encounter Visit Diagnoses Not on filedocumented in this encounter Care Teams Lodging House Keeper Relationship Specialty Start Date End Date Soumya Franks PA-C [address] [place] [address] PCP - General PHYSICIAN SERVICE DISMANTLER 07/05/21 11/29/21 documented as of this encounter
--- OUTSIDE RECORDS SUMMARY | 2024-05-26 02:41 | XMS_ITS | Encounter Summary ---
Author Organization [facility] Address [address] [place] [address]. [place] [address] [place] [address] Care Team Providers Care Baseball Player Name Role Phone Osbaldo Hong MD Primary Care Provider Soumya Sandhu PA-C Primary Care Provider +1- [phone] Encounter Details Date Type Department Care Team (Latest Contact Info) Description 06/23/2021 Scan HEALTH INFO SRVCS Scanned, Documents Social [...] on filedocumented in this encounter Care Teams Baseball Player Relationship Specialty Start Date End Date Osbaldo Hong MD PCP - General FAMILY PRACTICE 01/04/20 06/25/21 Soumya Franks PA-C [address] [place] [address] PCP - General PHYSICIAN SAFETY AND SECURITY OFFICER 06/26/21 07/03/21 documented as of this encounter
--- OUTSIDE RECORDS SUMMARY | 2024-05-26 02:41 | XMS_ITS | Encounter Summary ---
Author Organization [facility] Address [address] [place] [address]. [place] [address] [place] [address] Care Team Providers Care Director Child Name Role Phone Soumya Franks PA-C Primary Care Provider [phone]- [phone] Reason for Visit * Reason Onset Date Comments Note From Provider Request 07/05/2021 Encounter Details Date Type Department Care Team (Late st Contact Info) Description 07/05/2021 Telephone [facility] - [place] [address] [place] [phone] Soumya Franks PA-C [address] [place] [address] Note From Provider Request Social History Tobacco Use Types Packs/Day Years [...] Coronavirus/COVID-19? No / Unsure 07/05/2021 2:13 PM MEDIA PRODUCTION MANAGER documented as of this encounter Progress Notes * Olesya Dixon MA - 07/07/2021 11:32 AM CST Lmovm to make aware work note ready for pick out hand I will leave it at the front office medical assistant. A PRODUCTION MANAGER * Olesya Dixon MA - 07/06/2021 10:23 AM CST I called and lmovm to call office A PRODUCTION MANAGER * Cee Kim MA - 07/05/2021 5:14 PM CST Called pt to find out how he would like to receive note for work. Left message to return call. A PRODUCTION MANAGER documented in this encounter Plan of Treatment Not on file documented as of this encounter Visit Diagnoses Not on filedocumented in this encounter Care Teams Director Child Relationship Specialty Start Date End Date Soumya Franks PA-C [address] [place] [address] PCP - General PHYSICIAN ENGINEER REMOTE CONTROL DIESEL 07/05/21 11/29/21 documented as of this encounter
--- OUTSIDE RECORDS SUMMARY | 2024-05-26 02:42 | XMS_ITS | Encounter Summary ---
Author Organization [facility] Address [address] [place] [address]. [place] [address] [place] [address] Care Team Providers Care Heating Unit Mechanic Name Role Phone Osbaldo Hong MD Primary Care Provider Soumya Sandhu PA-C Primary Care Provider +1- [phone] Encounter Details Date Type Department Care Team (Latest Contact Info) Description 10/17/2018 Scan HEALTH INFO SRVCS Scanned, Documents Social History Tobacco Use Types Packs/Day Years Used Date Smoking Tobacco: Never Assessed AUDIT-C Answer Date Recorded Q1: How often [...] on filedocumented in this encounter Care Teams Heating Unit Mechanic Relationship Specialty Start Date End Date Osbaldo Hong MD PCP - General FAMILY PRACTICE 01/04/20 06/25/21 Soumya Franks PA-C [address] [place] [id number] PCP - General PHYSICIAN FULL TIME PARAMEDIC 06/26/21 07/03/21 documented as of this encounter
--- OUTSIDE RECORDS SUMMARY | 2024-05-26 02:42 | XMS_ITS | Encounter Summary ---
Author Organization [facility] Address [address] [place] [address]. [place], [place] [id number] [place] [address] Care Team Providers Care Livestock Yard Supervisor Name Role Phone Osbaldo Hong MD Primary Care Provider Soumya Sandhu PA-C Primary Care Provider +1- [phone] Reason for Visit * Reason Comments Pathology (SCAN) EGD (SCAN) Encounter Details Date Type Department Care Team ([facility] Contact Info) Description 01/06/2018 Scan HEALTH INFO SRVCS Scanned, Documents Pathology (SCAN); EGD (SCAN) Social History Tobacco Use Types Packs/Day [...] Procedure Name Priority Date/Time Associated Diagnosis Comments EGD GENERIC (SCAN ORDER) 01/06/2018 PATHOLOGY GENERIC (SCAN ORDER) 01/06/2018 documented in this encounter Results * PATHOLOGY GENERIC (01/06/2018) 01/06/2018 Narrative 01/06/2018 Ordered by an unspecified provider. us Documents Scanned SCANNING Final Result * EGD GENERIC (01/06/2018) 01/06/2018 Narrative 01/06/2018 Ordered by an unspecified provider. us Documents Scanned SCANNING Final Result documented in this encounter Visit Diagnoses Not on filedocumented in this encounter Care Teams Livestock Yard Supervisor Relationship Specialty Start Date End Date Osbaldo Hong MD PCP - General FAMILY PRACTICE 01/04/20 06/25/21 Soumya Franks PA-C [address] [place] [address] PCP - General PHYSICIAN COMPUTER TEACHER 06/26/21 07/03/21 documented as of this encounter
--- OUTSIDE RECORDS SUMMARY | 2024-05-26 02:42 | XMS_ITS | Encounter Summary ---
Author Organization [facility] Address [address] [place] [address]. [place], [place] [id number] [place] [address] Care Team Providers Care Sap Basis Architect Name Role Phone Teri Nuñez MD Primary Care Provider Unavailable Encounter Details Date Type Department Care Team (Late st Contact Info) Description 09/16/2005 Emergency [facility] [place] [address] Teri Nuñez MD Social History Tobacco Use Types Packs/Day Years Used Date Smoking Tobacco: Never Assessed Sex and Gender Information Value Date Recorded Sex Assigned at Not on file Legal Sex Male 8:09 PM CDT Gender Identity Not on file Sexual Orientation Not on file documented as of this encounter Plan of Treatment Not on file documented as of this encounter Visit Diagnoses Not on filedocumented in this encounter Care Teams Sap Basis Architect Relationship Specialty Start Date End Date Teri Nuñez MD PCP - General 06/18/11 documented as of this encounter
--- OUTSIDE RECORDS SUMMARY | 2024-05-26 02:42 | XMS_ITS | Encounter Summary ---
Author Organization [facility] Address [address] [place] [address]. [place], [place] [address] [place] [address] Care Team Providers Care Bacteriologist Dairy Name Role Phone Osbaldo Hong MD Primary Care Provider Unav ailable Reason for Visit * Reason Comments Nausea Abdominal Pain Encounter Details Date Type Department Care Team (Late st Contact Info) Description 01/04/2020 8:03 PM CDT - 01/04/2020 10:21 PM CDT Emergency [facility] [place] [address] Arpita Fernandez, PLUCK TRIMMER-BC Nausea; Abdominal Pain Discharge Disposition: Home or Self Care (Routine [...] Sign Reading Time Taken Comments Blood Pressure 128/72 01/04/2020 9:57 PM CDT Pulse 98 01/04/2020 9:57 PM CDT Temperature 36.6 ??C (97.8 ??F) 01/04/2020 7:50 PM CD T Respiratory Rate 20 01/04/2020 10:03 PM CDT Oxygen Saturation 98% 01/04/2020 9:57 PM CDT Inhaled Oxygen Concentration - - Weight 135 kg (297 lb 9.9 oz) 01/04/2020 7:50 PM CDT Height 185.4 cm (6' 1 ) 01/04/2020 7:50 PM CDT Body Mass Index 39.27 01/04/2020 7:50 PM CDT documented in this encounter Discharge Instructions * Discharge Instructions* GEETA Martinez - 01/04/2020 10:05 PM CDT STOP Smoking marijuana. It is making you vomit. If you continue with nausea you may take Zofran if needed. Please return to care for worsening symptoms. * Attachments The following attachments cannot be sent through Care Everywhere. * Drug Abuse and Drug Addiction Discharge Instructions (Luxembourgish) * Nausea and Vomiting Discharge Instructions, Adult ([place]ux[place]ish) documented in this encounter Medications at Time of Discharge ondansetron 4 MG disintegrating tablet Take 1 tablet (4 mg total) by mouth every 8 (eight) hours as needed. 20 tablet 01/04/2020 2 documented as of this encounter ED Notes * GEETA Martinez - 01/04/2020 9:08 PM CDT History Chief Complaint Patient presents with ??? Nausea ??? Abdominal Pain Aj Lunsford is a 19-year-old male who presented to the ED with c/o cannabal hyperemesis . Pt states that any time he smokes marijuana this happens. He reports he last used marijuana 3 days ago. He states that this morning at 3AM he woke up with nausea/vomiting and abdominal pain. He statesthat his abdominal pain is only from puking so much . Pt denies urinary symptoms. Pt denies fever,cough, congestion or exposure to COVID 19. Pt reports one episode of diarrhea without black or bloody stool. Pt denies urinary symptoms Past Medical History: Diagnosis Date ??? Cannabinoid hyperemesis syndrome Prior to Admission medications Medication Sig Start Date End Date Taking? Authorizing Provider ondansetron 4 MG disintegrating tablet Take 1 tablet (4 mg total) by mouth every 8 (eight) hours asneeded. 01/04/20 Yes DAVID Martinez- History reviewed. No pertinent surgical history. No family history on file. Social History Tobacco Use ??? Smoking status: Never Smoker ??? Smokeless tobacco: Never Used Substance Use Topics ??? Alcohol use: Never Frequency: Never ??? Drug use: Yes Types: Marijuana No LMP for male patient. Review of Systems Constitutional: Negative for fever. Respiratory: Negative for cough and shortness of breath. Cardiovascular: Negative for chest pain. Gastrointestinal: Positive for abdominal pain, diarrhea, nausea and vomiting. Negative for blood instool and constipation. Genitourinary: Negative for difficulty urinating and dysuria. All other systems reviewed and are negative. Physical Exam Filed Vitals: 01/04/20 2059 01/04/20 2113 01/04/20 2157 01/04/20 2203 BP: (!) 89/74 128/72 Pulse: 116 102 98 Resp: 30 20 Temp: TempSrc: SpO2: 96% 98% 98% Weight: Height: Physical Exam Constitutional: He is oriented to person, place, and time. He appears well- developed and well-nourished. HENT: Head: Normocephalic and atraumatic. Right Ear: External ear normal. Left Ear: External ear normal. Nose: Nose normal. Mouth/Throat: Oropharynx is clear and moist. Eyes: Pupils are equal, round, and reactive to light. Conjunctivae and EOM are normal. Neck: Normal range of motion. Neck supple. Cardiovascular: Normal rate, regular rhythm, normal heart sounds and intact distal pulses. Pulmonary/Chest: Effort normal and breath sounds normal. No respiratory distress. He has no wheezes. He has no rales. He exhibits no tenderness. Abdominal: Soft. Bowel sounds are normal. There is tenderness (diffuse abdominal tenderness, no point tenderness, no rebound, no guarding.). Musculoskeletal: Normal range of motion. Neurological: He is alert and oriented to person, place, and time. Skin: Skin is warm and dry. Psychiatric: He has a normal mood and affect. His behavior is normal. Thought content normal. Vitals reviewed. Labs Reviewed URINALYSIS - Abnormal; Notable for the following components: Result Value Specific Quail (U) 1.034 (*) PROTEIN (U) 50 (*) U KETONES 10 (*) WBC/HPF 32 (*) RBC/HPF 7 (*) BACTERIA (URINE) RARE (*) All other components within normal limits CBC W/DIFF AUTOMATED - Abnormal; Notable for the following components: WBC 11.5 (*) ABS. NEUTROPHILS TOTAL 9.41 (*) ABS. MONOCYTES 0.92 (*) ABS. EOSINOPHILS 0.00 (*) All other components within normal limits COMPREHENSIVE METABOLIC PANEL - Abnormal; Notable for the following components: GLUCOSE 112 (*) AST 38 (*) All other components within normal limits LIPASE - Abnormal; Notable for the following components: LIPASE 58 (*) All other components within normal limits CULTURE URINE Risks vs benefits of CT scan discussed with patient and/or patient's family. They verbalized understanding at this time. They would like to decline at this time. ED Course Procedures ED Course as of Jan 04 2043 Mon Jan 04, [id number] 2157---Pt resting comfortably. States that he is feeling much better and would like to go home. Erroneous BP charted at 2058. Repeat BP is 128/72 [MP] ED Course User Index [MP] Arpita Fernandez, PLUCK TRIMMER- Medications ketorolac (TORADOL) injection 15 mg (15 mg Intravenous Given 01/04/202125) ondansetron (ZOFRAN) injection 4 mg (4 mg Intravenous Given 01/04/202140) Discharge Medication List as of 01/04/2020 10:16 PM START taking these medications Details ondansetron 4 MG disintegrating tablet Take 1 tablet (4 mg total) by mouth every 8 (eight) hours asneeded., Starting 01/04/2020, Eprescribe Class: Eprescribe Pharmacy: [facility]/pharmacy #[id number] [place], [place] - [facility] (Ph #: [phone]) Plan of care discussed with patient. Patient agreeable with plan of care. I have discussed today's findings with the patient and provided information regarding the likely diagnosis. I believe at thistime that the patient has no medical emergency and is appropriate for outpatient management. The patient has been given information regarding their treatment, follow up and concerning symptoms for which they should seek urgent or emergent attention; all questions were answered. I have expressed thethe importance of seeking attention should there be any new, or worsening symptoms or persistence of their condition. The patient is stable at discharge and has verbalized understanding of these instructions. MDM Number of Diagnoses or Management Options Cannabis hyperemesis syndrome concurrent with and due to cannabis abuse (CMS/HCC): Amount and/or Complexity of Data Reviewed Clinical lab tests: ordered and reviewed Tests in the medicine section of CPT??: ordered and reviewed Patient Progress Patient progress: stable SNOMED CT(R) 1. Cannabis hyperemesis syndrome concurrent with and due to cannabis abuse (CMS/HCC) CANNABIS HYPEREMESIS SYNDROME CO-OCCURRENT AND DUE TO CANNABIS ABUSE Disposition: Discharge Follow up instructions: Maggy Franklin MD [address] [place] [address] [address] [facility] [id number] Call in 2 days If symptoms worsen GEETA MARTINEZ Please excuse any grammatical or spelling errors as this chart was documented using Loopt, a dictation software. GEETA Martinez 01/05/202042 Cosigned by Chirag Muñoz MD at 01/06/2020 11:54 AM CDT * Luis Miguel Kuhn RN - 01/04/2020 7:49 PM CDT Patient ambulatory to ED with accounts receivable bookkeeper abd pain and emesis that began today. Reports hx of cannabinoid hyperemesis. Reports last using marijuana 3 days ago. documented in this encounter Plan of Treatment Not on file documented as of this encounter Procedures Procedure Name Priority Date/Time Associated Diagnosis Comments HC URINALYSIS AUTO W/O MICRO STAT 01/04/2020 8:32 PM CDT URINE BACTERIA CULTURE Routine 0 8:32 PM CDT COMPREHENSIVE METABOLIC PANEL STAT 01/04/2020 8:12 PM CDT CBC W/DIFF AUTOMATED STAT 01/04/2020 8:12 PM CDT LIPASE STAT 01/04/2020 8:12 PM CDT documented in this encounter Results * CULTURE URINE (01/04/2020 8:32 PM CDT) SPEC DESCRIPTION URINE CLEAN CATCH 01/04/2020 9:43 PM CDT [facility] SPECIAL REQUESTS NO SPECIAL REQUEST 01/04/2020 9:43 PM CDT [facility] CULTURE RESULT NO GROWTH 2 DAYS 01/07/2020 8:53 AM CDT [facility] URINE SPECIMEN OBTAINED BY CLEAN CATCH PROCEDURE / Unknown 01/04/2020 8:32 PM CDT 01/04/2020 9:43 PM CDT Arpita Joie Fernandez [facility]- MICROBIOLOGY - GENERAL OR DERABLES Final Result [facility] [address] [place] [address], [place] [phone] * (ABNORMAL) URINALYSIS (01/04/2020 8:32 PM CDT) SPECIMEN TYPE URINE CLEAN CATCH 01/04/2020 8:32 PM CDT [facility] COLOR (U) ORANGE 01/04/2020 9:26 PM CDT [facility] TRANSPARENCY EXTREMELY TURBID 01/04/2020 9:26 PM CDT [facility] SPECIFIC GRAVITY (U) 1.034(H) 1.001 - 1.030 01/04/2020 9:26 PM T [facility] U PH 6.0 5.0 - 9.0 01/04/2020 9:26 PM [facility] LEUKOCYTES (U) NEGATIVE NEGATIVE 01/04/2020 9:26 PM T [facility] NITRITES NEGATIVE NEGATIVE 01/04/2020 9:26 PM [facility] PROTEIN (U) 50(H) <30 MG/DL 01/04/2020 9:26 PM T [facility] URINE GLUCOSE NORMAL NORMAL MG/DL 01/04/2020 9:26 PM [facility] KETONES MG/DL (U) 10(A) NEGATIVE MG/DL 01/04/2020 9:26 PM [facility] UROBILINOGEN NORMAL NORMAL MG/DL 01/04/2020 9:26 PM [facility] BILIRUBIN (U) NEGATIVE NEGATIVE MG/DL 01/04/2020 9:26 PM [facility] BLOOD (U) NEGATIVE NEGATIVE 01/04/2020 9:26 PM [facility] CULTURE & SENSITIVITY INDICATED? SPECIMEN SETUP FOR CULTURE 01/04/2020 9:26 PM [facility] WBC/HPF 32(H) <6 /HPF 01/04/2020 9:26 PM [facility] RBC/HPF 7(H) <6 /HPF 01/04/2020 9:26 PM [facility] BACTERIA (U) RARE(A) NONE /HPF 01/04/2020 9:26 PM [facility] AMORPHOUS SEDIMENT MANY /HPF 01/04/2020 9:26 PM [facility] URINE SPECIMEN OBTAINED BY CLEAN CATCH PROCEDURE / Unknown 01/04/2020 8:32 PM CDT us Chirag Muñoz MD URINE ORDERABLES Final R esult [facility] [address] [place] [address], [place] [phone] * (ABNORMAL) LIPASE (01/04/2020 8:12 PM CDT) LIPASE 58(L) 73 - 393 UNITS/L 01/04/2020 8:59 PM CDT [facility] 01/04/2020 8:12 PM CDT Chirag Muñoz MD LABORATORY Final Re sult Performing Organization Address City/[facility]/ZIP Co de Phone Number [facility] [address] [place] [address], [place] [phone] * (ABNORMAL) COMPREHENSIVE METABOLIC PANEL (01/04/2020 8:12 PM CDT) GLUCOSE 112(H) 70 - 99 MG/DL 01/04/2020 8:59 PM CDT [facility] BUN 8 7 - 18 MG/DL 01/04/2020 8:59 PM CDT [facility] CREATININE S/P/B 0.94 0.7 - 1.3 MG/DL 01/04/2020 8:59 PM CDT [facility] SODIUM S/P/B 137 136 - 145 MMOL/L 01/04/2020 8:59 PM CDT [facility] POTASSIUM S/P/B 4.0 3.5 - 5.1 MMOL/L 01/04/2020 8:59 PM CDT [facility] Comment:SLIGHT HEMOLYSIS, RE SULT MAY BE AFFECTED. CHLORIDE S/P/B 107 100 - 108 MMOL/L 01/04/2020 8:59 PM CDT [facility] CO2 24.0 21 - 32 MMOL/L 01/04/2020 8:59 PM CDT [facility] CALCIUM S/P/B 9.1 8.5 - 10.1 MG/DL 01/04/2020 8:59 PM CDT [facility] BILIRUBIN TOTAL S/P/B 1.0 0.2 - 1.2 MG/DL 01/04/2020 8:59 PM CDT [facility] Comment: THIS ASSAY IS NOT RECOMMENDED FOR PATIENTS UNDERGOING TREATMENT WITH ELTROMBOPAG DUE TO THE POTENTIAL FOR FALSELY ELEVATED RESULTS. TOTAL PROTEIN S/P/B 6.9 6.4 - 8.2 G/DL 01/04/2020 8:59 PM CDT [facility] ALBUMIN S/P/B 3.8 3.4 - 5.0 G/DL 01/04/2020 8:59 PM CDT [facility] AST 38(H) 15 - 37 U/L 01/04/2020 8:59 PM T [facility] Comment:SLIGHT HEMOLYSIS, RE SULT MAY BE AFFECTED. ALT 50 16 - 60 U/L 01/04/2020 8:59 PM T [facility] ALKALINE PHOSPHATASE S/P/B 89 50 - 136 U/L 01/04/2020 8:59 PM T [facility] ANION GAP 6.0 5 - 15 MMOL/L 01/04/2020 8:59 PM CDT [facility] BUN CREATININE RATIO 8.5 6 - 26 01/04/2020 8:59 PM CDT [facility] A/G RATIO 1.2 1.0 - 2.0 RATIO 01/04/2020 8:59 PM T [facility] EGFR NON-AFR. AMER. >90 >90 ML/MIN/1.7 3 M2 01/04/2020 8:59 PM CDT [facility] EGFR AFR. AMER. >90 >90 ML/MIN/1.7 3 M2 01/04/2020 8:59 PM CDT [facility] Comment: NOTE: eGFR is not calculated for patients <18 years of age. This is an estimated GFR (CKD EPI) and should not be used for calculating drug doses. 01/04/2020 8:12 PM CDT Chirag Muñoz MD LABORATORY Final Re sult [facility] [address] [place] [address], * (ABNORMAL) CBC W/DIFF AUTOMATED (01/04/2020 8:12 PM CDT) WBC 11.5(H) 4.5 - 11.0 x10'3/uL 01/04/2020 8:31 PM CDT [facility] RBC 5.65 4.70 - 6.10 x10'6/uL 01/04/2020 8:31 PM CDT [facility] HGB 16.0 14.0 - 18.0 G/DL 01/04/2020 8:31 PM CDT [facility] HCT 46.6 43.0 - 54.0 % 01/04/2020 8:31 PM CDT [facility] MCV 82.5 80.0 - 94.0 FL 01/04/2020 8:31 PM CDT [facility] MCH 28.3 27.0 - 31.0 PG 01/04/2020 8:31 PM CDT [facility] MCHC 34.3 32.0 - 36.0 G/DL 01/04/2020 8:31 PM CDT [facility] RDW 12.6 11.5 - 14.5 % 01/04/2020 8:31 PM CDT [facility] PLT 239 130 - 400 x10'3/uL 01/04/2020 8:31 PM CDT [facility] MPV 10.9 9.3 - 12.2 FL 01/04/2020 8:31 PM CDT [facility] DIFFERENTIAL TYPE AUTOMATED DIFFERENTIAL 01/04/2020 8:31 PM CDT [facility] NEUTROPHILS % 81.5 % 01/04/2020 8:31 PM CDT [facility] LYMPHOCYTES % 9.9 % 01/04/2020 8:31 PM CDT [facility] MONOCYTES % 8.0 % 01/04/2020 8:31 PM CDT [facility] EOSINOPHILS 0.0 % 01/04/2020 8:31 PM CDT [facility] BASOPHILS 0.3 % 01/04/2020 8:31 PM CDT [facility] IMMATURE GRANS % 0.3 % 01/04/20 20 8:31 PM CDT [facility] ABS. NEUTROPHILS TOTAL 9.41(H) 1.80 - 7.70 x10'3/uL 01/04/2020 8:31 PM CDT [facility] ABS. LYMPHOCYTES 1.14 1.00 - 4.80 x10'3/uL 01/04/2020 8:31 PM CDT [facility] ABS. MONOCYTES 0.92(H) 0.30 - 0.82 x10'3/uL 01/04/2020 8:31 PM CDT [facility] ABS. EOSINOPHILS 0.00(L) 0.04 - 0.54 x10'3/uL 01/04/2020 8:31 PM CDT [facility] ABS. BASOPHILS 0.03 0.01 - 0.08 x10'3/uL 01/04/2020 8:31 PM CDT [facility] ABS. IMMATURE GRANULOCYTES 0.04 0.00 - 0.49 x10'3/uL 01/04/2020 8:31 PM CDT [facility] 01/04/2020 8:12 PM CDT Chirag Muñoz MD LABORATORY Final Re sult [facility] [address] [place] [address], [place] [phone] documented in this encounter Visit Diagnoses Diagnosis Cannabis hyperemesis syndrome concurrent with and due to cannabis abuse ([facility]/HCC)- Primary documented in this encounter Administered Medications Inactive Administered Medications - up to 3 most recent administrations Medication Order MAR Action Action Date Dose Rate Site ketorolac (TORADOL) injection 15 mg 15 mg, Intravenous, Once, 1 dose, On Sat01/04/20 at 2115, For IV administration, give over 15 seconds. Given 01/04/2020 9:26 PM CDT 15 mg ondansetron (ZOFRAN) injection 4 mg 4 mg, Intravenous, Once, 1 dose, On Sat01/04/20 at 2145, IV push over 2-5 minutes. Given 01/04/2020 9:41 PM CDT 4 mg documented in this encounter Active and Recently Administered Medications Times are shown in CDT. Scheduled Medication Order 01/02/2020 01/03/2020 01/04/2020 ketorolac (TORADOL) injection 15 mg (COMPLETED) 15 mg, Intravenous, Once, 1 dose, On Sat01/04/20 at 2115, For IV administration, give over 15 seconds. 2125 (Given - Provid er: Nighat Parikh RN) ondansetron (ZOFRAN) injection 4 mg (COMPLETED) 4 mg, Intravenous, Once, 1 dose, On Sat01/04/20 at 2145, IV push over 2-5 minutes. 2140 (Given - Provid er: Jessica Diana RN) documented in this encounter Care Teams Bacteriologist Dairy Relationship Specialty Start Date End Date Osbaldo Hong MD PCP - General FAMILY PRACTICE 01/04/20 06/25/21 documented as of this encounter
--- OUTSIDE RECORDS SUMMARY | 2024-05-26 02:42 | XMS_ITS | Encounter Summary ---
Author Organization [facility] Address [address] [place] [address]. [place], [place] [address] [place] [address] Care Team Providers Care Blood Donor Unit Assistant Name Role Phone Teri Nuñez MD Primary Care Provider Unavailable Osbaldo Hong MD Primary Care Provider Unav ailable TinyHenrry narvaezessamauri RAMIREZC Primary Care Provider +1- [phone] Reason for Visit * Reason Comments Lab (SCAN) Image (SCAN) Encounter Details Date Type Department Care Team (Late Contact Info) Description 05/10/1999 Scan HEALTH INFO SRVCS Scanned, Documents Lab (SCAN); Image (SCAN) Social History Tobacco Use Types Packs/Day [...] Associated Diagnosis Comments OUTSIDE LAB (SCAN ORDER) 05/10/1999 IMAGE GENERIC 05/10/1999 documented in this encounter Results * OUTSIDE LAB (SCAN) (05/10/1999) 05/10/1999 Narrative 05/10/1999 Ordered by an unspecified provider. us Documents Scanned SCANNING Final Result * IMAGE GENERIC (05/10/1999) Anatomical Region Laterality Modality Other 05/10/1999 Narrative 05/10/1999 Ordered by an unspecified provider. us Documents Scanned SCANNING Final Result documented in this encounter Visit Diagnoses Not on filedocumented in this encounter Care Teams Blood Donor Unit Assistant Relationship Specialty Start Date End Date Teri Nuñez MD PCP - General 06/18/11 Osbaldo Hong MD PCP - General FAMILY PRACTICE 01/04/20 06/25/21 Soumya Franks PA-C [address] [place] [address] PCP - General PHYSICIAN WAREHOUSE HAND 06/26/21 07/03/21 documented as of this encounter
--- OUTSIDE RECORDS SUMMARY | 2024-05-26 02:42 | XMS_ITS | Encounter Summary ---
Author Organization [facility] Address [address] [place] [address]. [place], [place] [address] [place] [address] Care Team Providers Care Belt Turner Name Role Phone Osbaldo Hong MD Primary Care Provider Soumya Sandhu PA-C Primary Care Provider +1- [phone] Reason for Visit * Reason Comments Image (SCAN) Ultrasound (SCAN) Encounter Details Date Type Department Care Team ([facility] Contact Info) Description 07/23/2018 Scan HEALTH INFO SRVCS Scanned, Documents Image (SCAN); Ultrasound (SCAN) Social History Tobacco Use Types Packs/Day [...] Procedure Name Priority Date/Time Associated Diagnosis Comments IMAGE GENERIC 07/23/2018 ULTRASOUND GENERIC (SCAN ORDER) 07/23/2018 documented in this encounter Results * IMAGE GENERIC (07/23/2018) Anatomical Region Laterality Modality Other 07/23/2018 Narrative 07/23/2018 Ordered by an unspecified provider. us Documents Scanned SCANNING Final Result * ULTRASOUND GENERIC (07/23/2018) Anatomical Region Laterality Modality Other 07/23/2018 Narrative 07/23/2018 Ordered by an unspecified provider. us Documents Scanned SCANNING Final Result documented in this encounter Visit Diagnoses Not on filedocumented in this encounter Care Teams Belt Turner Relationship Specialty Start Date End Date Osbaldo Hong MD PCP - General FAMILY PRACTICE 01/04/20 06/25/21 Soumya Franks PA-C [address] [place] [address] PCP - General PHYSICIAN ANIMAL SCIENCE PROFESSOR 06/26/21 07/03/21 documented as of this encounter
--- OUTSIDE RECORDS SUMMARY | 2024-05-26 02:42 | XMS_ITS | Encounter Summary ---
Author Organization [facility] Address [address] [place] [address]. [place] [address] [place] [address] Care Team Providers Care Couples Therapist Name Role Phone Osbaldo Hong MD Primary Care Provider Soumya Sandhu PA-C Primary Care Provider +1- [phone] Encounter Details Date Type Department Care Team (Latest Contact Info) Description 12/02/2018 Scan HEALTH INFO SRVCS Scanned, Documents Social [...] on filedocumented in this encounter Care Teams Couples Therapist Relationship Specialty Start Date End Date Osbaldo Hong MD PCP - General FAMILY PRACTICE 01/04/20 06/25/21 Soumya Franks PA-C [address] [place] [address] PCP - General PHYSICIAN SUPPLY CHAIN COORDINATOR 06/26/21 07/03/21 documented as of this encounter
--- OUTSIDE RECORDS SUMMARY | 2024-05-26 02:42 | XMS_ITS | Encounter Summary ---
Author Organization [facility] Address [address] [place] [address]. [place], [place] [address] [place] [address] Care Team Providers Care Seamer Operator Name Role Phone Teri Nuñez MD Primary Care Provider Unavailable Encounter Details Date Type Department Care Team (Late st Contact Info) Description 03/20/2005 [facility] [address] [place] [address] Teri Nuñez MD Social History Tobacco Use [...] on filedocumented in this encounter Care Teams Seamer Operator Relationship Specialty Start Date End Date Teri Nuñez MD PCP - General 06/18/11 documented as of this encounter
--- OUTSIDE RECORDS SUMMARY | 2024-05-26 02:42 | XMS_ITS | Encounter Summary ---
Author Organization [facility] Address [address] [place] [address]. [place], [place] [address] [place] [address] Care Team Providers Care Self Sealing Fuel Tank Builder Name Role Phone Teri Nuñez MD Primary Care Provider Unavailable Osbaldo Hong MD Primary Care Provider Unav ailable Soumya Franks PA-C Primary Care Provider +1- [phone] Encounter Details Date Type Department Care Team (Latest Contact Info) Description 02/02/2015 Scan HEALTH INFO SRVCS Scanned, Documents Social [...] on filedocumented in this encounter Care Teams Self Sealing Fuel Tank Builder Relationship Specialty Start Date End Date Teri Nuñez MD PCP - General 06/18/11 Osbaldo Hong MD PCP - General FAMILY PRACTICE 01/04/20 06/25/21 Soumya Franks PA-C [address] [place] [address] PCP - General PHYSICIAN MC KAY MACHINE OPERATOR 06/26/21 07/03/21 documented as of this encounter
--- OUTSIDE RECORDS SUMMARY | 2024-05-26 02:42 | XMS_ITS | Encounter Summary ---
Author Organization [facility] Address [address] [place] [address]. [place], [place] [address] [place] [address] Care Team Providers Care Piping Supervisor Name Role Phone Teri Nuñez MD Primary Care Provider Unavailable Osbaldo Hong MD Primary Care Provider Unav ailable Soumya Franks PA-C Primary Care Provider +1- [phone] Encounter Details Date Type Department Care Team (Latest Contact Info) Description 06/24/2014 Scan HEALTH INFO SRVCS Scanned, Documents Social [...] on filedocumented in this encounter Care Teams Piping Supervisor Relationship Specialty Start Date End Date Teri Nuñez MD PCP - General 06/18/11 Osbaldo Hong MD PCP - General FAMILY PRACTICE 01/04/20 06/25/21 Soumya Franks PA-C [address] [place] [address] PCP - General PHYSICIAN DIGITAL MARKETING ASSISTANT 06/26/21 07/03/21 documented as of this encounter
--- OUTSIDE RECORDS SUMMARY | 2024-05-26 02:42 | XMS_ITS | Encounter Summary ---
Author Organization [facility] Address [address] [place] [address]. [place] [address] [place] [address] Care Team Providers Care Sleeper Cutter Name Role Phone Osbaldo Hong MD Primary Care Provider Soumya Sandhu PA-C Primary Care Provider +1- [phone] Encounter Details Date Type Department Care Team (Latest Contact Info) Description 08/01/2018 Scan HEALTH INFO SRVCS Scanned, Documents Social [...] on filedocumented in this encounter Care Teams Sleeper Cutter Relationship Specialty Start Date End Date Obsaldo Hong MD PCP - General FAMILY PRACTICE 01/04/20 06/25/21 Soumya Franks PA-C [address] [place] [address] PCP - General PHYSICIAN RAIL OPERATOR 06/26/21 07/03/21 documented as of this encounter
--- OUTSIDE RECORDS SUMMARY | 2024-05-26 02:42 | XMS_ITS | Encounter Summary ---
Author Organization [facility] Address [address] [place] [address]. [place], [place] [address] [place] [address] Care Team Providers Care Delivery Department Supervisor Name Role Phone Teri Nuñez MD Primary Care Provider Unavailable Encounter Details Date Type Department Care Team (Late st Contact Info) Description 06/08/2005 [facility] [address] [place] [address] Teri Nuñez MD Social History Tobacco Use [...] on filedocumented in this encounter Care Teams Delivery Department Supervisor Relationship Specialty Start Date End Date Teri Nuñez MD PCP - General 06/18/11 documented as of this encounter
--- OUTSIDE RECORDS SUMMARY | 2024-05-26 02:42 | XMS_ITS | Encounter Summary ---
Author Organization [facility] Address [address] [place] [address]. [place], [place] [address] [place] [address] Care Team Providers Care Tomato Pulper Operator Name Role Phone Teri Nuñez MD Primary Care Provider Unavailable Encounter Details Date Type Department Care Team (Late st Contact Info) Description 05/07/2007 Abstract [facility] [address] [place] [address] Germán Fofana MD [address] [address] Social History Tobacco Use Types Packs/Day Years [...] on filedocumented in this encounter Care Teams Tomato Pulper Operator Relationship Specialty Start Date End Date Teri Nuñez MD PCP - General 06/18/11 documented as of this encounter
--- OUTSIDE RECORDS SUMMARY | 2024-05-26 02:42 | XMS_ITS | Encounter Summary ---
Author Organization [facility] Address [address] [place] [address]. [place], [place] [address] [place] [address] Care Team Providers Care Front Office Manager Name Role Phone Teri Nuñez MD Primary Care Provider Unavailable Osbaldo Hong MD Primary Care Provider Unav ailable Soumya Franks PA-C Primary Care Provider +1- [phone] Encounter Details Date Type Department Care Team (Latest Contact Info) Description 02/22/2015 Scan HEALTH INFO SRVCS Scanned, Documents Social [...] on filedocumented in this encounter Care Teams Front Office Manager Relationship Specialty Start Date End Date Teri Nuñez MD PCP - General 06/18/11 Osbaldo Hong MD PCP - General FAMILY PRACTICE 01/04/20 06/25/21 Soumya Franks PA-C [address] [place] [address] PCP - General PHYSICIAN INDOOR SPORTS CENTRE MANAGER 06/26/21 07/03/21 documented as of this encounter
--- OUTSIDE RECORDS SUMMARY | 2024-05-26 02:42 | XMS_ITS | Encounter Summary ---
Author Organization [facility] Address [address] [place] [address]. [place], [place] [address] [place] [address] Care Team Providers Care Housekeeping Staff Name Role Phone Osbaldo Hong MD Primary Care Provider Soumya Sandhu PA-C Primary Care Provider +1- [phone] Reason for Visit * Reason Comments Ultrasound (SCAN) Encounter Details Date Type Department Care Team ([facility] Contact Info) Description 10/26/2017 Scan HEALTH INFO SRVCS Scanned, Documents Ultrasound (SCAN) Social History Tobacco Use Types [...] Procedure Name Priority Date/Time Associated Diagnosis Comments ULTRASOUND GENERIC (SCAN ORDER) 10/26/2017 documented in this encounter Results * ULTRASOUND GENERIC (10/26/2017) Anatomical Region Laterality Modality Other 10/26/2017 Narrative 10/26/2017 Ordered by an unspecified provider. us Documents Scanned SCANNING Final Result documented in this encounter Visit Diagnoses Not on filedocumented in this encounter Care Teams Housekeeping Staff Relationship Specialty Start Date End Date Osbaldo Hong MD PCP - General FAMILY PRACTICE 01/04/20 06/25/21 Soumya Franks PA-C [address] [place] [address] PCP - General PHYSICIAN PRESS TENDER LONG GOODS 06/26/21 07/03/21 documented as of this encounter
--- OUTSIDE RECORDS SUMMARY | 2024-05-26 02:42 | XMS_ITS | Encounter Summary ---
Author Organization [facility] Address [address] [place] [address]. [place], [place] [address] [place] [address] Care Team Providers Care Tripe Finisher Name Role Phone Teri Nuñez MD Primary Care Provider Unavailable Encounter Details Date Type Department Care Team (Late st Contact Info) Description 07/27/2005 Abstract [place] [address] [place] [address] Teri Nuñez MD Social History Tobacco Use [...] on filedocumented in this encounter Care Teams Tripe Finisher Relationship Specialty Start Date End Date Teri Nuñez MD PCP - General 06/18/11 documented as of this encounter
--- OUTSIDE RECORDS SUMMARY | 2024-05-26 02:42 | XMS_ITS | Encounter Summary ---
Author Organization [facility] Address [address] [place] [address]. [place], [place] [address] [place] [address] Care Team Providers Care Event Host Name Role Phone Teri Nuñez MD Primary Care Provider Unavailable Encounter Details Date Type Department Care Team (Late st Contact Info) Description 07/05/[address] [facility] [address] [place] [address] Germán Fofana MD [address] [address] Social History Tobacco Use Types [...] on filedocumented in this encounter Care Teams Event Host Relationship Specialty Start Date End Date Teri Nuñez MD PCP - General 06/18/11 documented as of this encounter
--- OUTSIDE RECORDS SUMMARY | 2024-05-26 02:42 | XMS_ITS | Encounter Summary ---
Author Organization [facility] Address [address] [place] [address]. [place], [place] [address] [place] [address] Care Team Providers Care Echo Vascular Technologist Name Role Phone Teri Nuñez MD Primary Care Provider Unavailable Encounter Details Date Type Department Care Team (Late st Contact Info) Description 04/30/2007 [facility] [address] [place] [address] [place] [address] [place] [id number] Social History Tobacco Use Types Packs/Day Years [...] on filedocumented in this encounter Care Teams Echo Vascular Technologist Relationship Specialty Start Date End Date Teri Nuñez MD PCP - General 06/18/11 documented as of this encounter
--- OUTSIDE RECORDS SUMMARY | 2024-05-26 02:42 | XMS_ITS | Encounter Summary ---
Author Organization [facility] Address [address] [place] [address]. [place], [place] [address] [place] [address] Care Team Providers Care English Drawer Name Role Phone Teri Nuñez MD Primary Care Provider Unavailable Osbaldo Hong MD Primary Care Provider Unav ailable Soumya Franks PA-C Primary Care Provider +1- [phone] Encounter Details Date Type Department Care Team (Latest Contact Info) Description 11/17/1999 Scan HEALTH INFO SRVCS Scanned, Documents Social [...] on filedocumented in this encounter Care Teams English Drawer Relationship Specialty Start Date End Date Teri Nuñez MD PCP - General 06/18/11 Osbaldo Hong MD PCP - General FAMILY PRACTICE 01/04/20 06/25/21 Soumya Franks PA-C [address] [place] [address] PCP - General PHYSICIAN ENROUTE CONTROLLER 06/26/21 07/03/21 documented as of this encounter
--- OUTSIDE RECORDS SUMMARY | 2024-05-26 02:42 | XMS_ITS | Encounter Summary ---
Author Organization [facility] Address [address] [place] [address]. [place] [address] [place] [address] Care Team Providers Care Circular Tank Cooper Name Role Phone Osbaldo Hong MD Primary Care Provider Soumya Sandhu PA-C Primary Care Provider +1- [phone] Encounter Details Date Type Department Care Team (Latest Contact Info) Description 09/19/2018 Scan HEALTH INFO SRVCS Scanned, Documents Social [...] on filedocumented in this encounter Care Teams Circular Tank Cooper Relationship Specialty Start Date End Date Osbaldo Hong MD PCP - General FAMILY PRACTICE 01/04/20 06/25/21 Soumya Franks PA-C [address] [place] [address] PCP - General PHYSICIAN SUPERVISOR WATERWORKS 06/26/21 07/03/21 documented as of this encounter
--- OUTSIDE RECORDS SUMMARY | 2024-05-26 02:42 | XMS_ITS | Encounter Summary ---
Author Organization [facility] Address [address] [place] [address]. [place] [address] [place] [address] Care Team Providers Care Television Station Manager Name Role Phone Osbaldo Hong MD Primary Care Provider Soumya Sandhu PA-C Primary Care Provider +1- [phone] Encounter Details Date Type Department Care Team (Latest Contact Info) Description 06/02/2018 Scan HEALTH INFO SRVCS Scanned, Documents Social [...] on filedocumented in this encounter Care Teams Television Station Manager Relationship Specialty Start Date End Date Osbaldo Hong MD PCP - General FAMILY PRACTICE 01/04/20 06/25/21 Soumya Franks PA-C [address] [place] [address] PCP - General PHYSICIAN STUD SHEEP FARMER 06/26/21 07/03/21 documented as of this encounter
--- OUTSIDE RECORDS SUMMARY | 2024-05-26 02:42 | XMS_ITS | Encounter Summary ---
Author Organization [facility] Address [address] [place] [address]. [place], [place] [address] [place] [address] Care Team Providers Care Sales Engagement Manager Name Role Phone Teri Nuñez MD Primary Care Provider Unavailable Osbaldo Hong MD Primary Care Provider Unav ailable Soumya Franks PA-C Primary Care Provider +1- [phone] Encounter Details Date Type Department Care Team (Latest Contact Info) Description 06/08/2005 Scan HEALTH INFO SRVCS Scanned, Documents Social [...] on filedocumented in this encounter Care Teams Sales Engagement Manager Relationship Specialty Start Date End Date Teri Nuñez MD PCP - General 06/18/11 Osbaldo Hong MD PCP - General FAMILY PRACTICE 01/04/20 06/25/21 Soumya Franks PA-C [address] [place] [address] PCP - General PHYSICIAN WASH OIL PUMP OPERATOR HELPER 06/26/21 07/03/21 documented as of this encounter
--- OUTSIDE RECORDS SUMMARY | 2024-05-26 02:42 | XMS_ITS | Encounter Summary ---
Author Organization [facility] Address [address] [place] [address]. [place], [place] [address] [place] [address] Care Team Providers Care Cloth Tearer Name Role Phone Teri Nuñez MD Primary Care Provider Unavailable Encounter Details Date Type Department Care Team (Late st Contact Info) Description 09/08/2001 Emergency [facility] [place] [address] Teri Nuñez MD Social History Tobacco Use [...] on filedocumented in this encounter Care Teams Cloth Tearer Relationship Specialty Start Date End Date Teri Nuñez MD PCP - General 06/18/11 documented as of this encounter
--- OUTSIDE RECORDS SUMMARY | 2024-05-26 02:42 | XMS_ITS | Encounter Summary ---
Author Organization [facility] Address [address] [place] [address]. [place], [place] [address] [place] [address] Care Team Providers Care Apparatus Operator Name Role Phone Teri Nuñez MD Primary Care Provider Unavailable Encounter Details Date Type Department Care Team (Late st Contact Info) Description 05/10/1999 Abstract [facility] Tele[facility] [place] [address] Teri Nuñez MD Social History Tobacco Use [...] on filedocumented in this encounter Care Teams Apparatus Operator Relationship Specialty Start Date End Date Teri Nuñez MD PCP - General 06/18/11 documented as of this encounter
--- OUTSIDE RECORDS SUMMARY | 2024-05-26 02:42 | XMS_ITS | Encounter Summary ---
Author Organization [facility] Address [address] [place] [address]. [place], [place] [address] [place] [address] Care Team Providers Care Pipeline Engineer Name Role Phone Teri Nuñez MD Primary Care Provider Unavailable Osbaldo Hong MD Primary Care Provider Unav ailable Soumya Franks PA-C Primary Care Provider +1- [phone] Encounter Details Date Type Department Care Team (Latest Contact Info) Description 02/16/2003 Scan HEALTH INFO SRVCS Scanned, Documents Social [...] on filedocumented in this encounter Care Teams Pipeline Engineer Relationship Specialty Start Date End Date Teri Nuñez MD PCP - General 06/18/11 Osbaldo Hong MD PCP - General FAMILY PRACTICE 01/04/20 06/25/21 Soumya Franks PA-C [address] [place] [address] PCP - General PHYSICIAN WELDER EXPLOSION 06/26/21 07/03/21 documented as of this encounter
--- OUTSIDE RECORDS SUMMARY | 2024-05-26 02:42 | XMS_ITS | Encounter Summary ---
Author Organization [facility] Address [address] [place] [address]. [place], [place] [address] [place] [address] Care Team Providers Care Marble Machine Tender Name Role Phone Teri Nuñez MD Primary Care Provider Unavailable Osbaldo Hong MD Primary Care Provider Unav ailable Soumya Franks PA-C Primary Care Provider +1- [phone] Encounter Details Date Type Department Care Team (Latest Contact Info) Description 05/12/1999 Scan HEALTH INFO SRVCS Scanned, Documents Social [...] on filedocumented in this encounter Care Teams Marble Machine Tender Relationship Specialty Start Date End Date Teri Nuñez MD PCP - General 06/18/11 Osbaldo Hong MD PCP - General FAMILY PRACTICE 01/04/20 06/25/21 Soumya Franks PA-C [address] [place] [address] PCP - General PHYSICIAN SCARFING MACHINE OPERATOR 06/26/21 07/03/21 documented as of this encounter
--- OUTSIDE RECORDS SUMMARY | 2024-05-26 02:42 | XMS_ITS | Encounter Summary ---
Author Organization [facility] Address [address] [place] [address]. [place], [place] [address] [place] [address] Care Team Providers Care Police Chief Deputy Name Role Phone Osbaldo Hong MD Primary Care Provider Soumya Sandhu PA-C Primary Care Provider +1- [phone] Reason for Visit * Reason Comments CT (SCAN) Encounter Details Date Type Department Care Team (Latest Contact Info) Description 10/29/2017 Scan HEALTH INFO SRVCS Scanned, Documents CT [...] Priority Date/Time Associated Diagnosis Comments CT GENERIC 10/29/2017 documented in this encounter Results * CT GENERIC (10/29/2017) Anatomical Region Laterality Modality Other 10/29/2017 Narrative 10/29/2017 Ordered by an unspecified provider. us Documents Scanned SCANNING Final Result documented in this encounter Visit Diagnoses Not on filedocumented in this encounter Care Teams Police Chief Deputy Relationship Specialty Start Date End Date Osbaldo Hong MD PCP - General FAMILY PRACTICE 01/04/20 06/25/21 Soumya Franks PA-C [address] [place] [address] PCP - General PHYSICIAN INSIDE FINISHER 06/26/21 07/03/21 documented as of this encounter
--- OUTSIDE RECORDS SUMMARY | 2024-05-26 02:42 | XMS_ITS | Encounter Summary ---
Author Organization [facility] Address [address] [place] [address]. [place], [place] [address] [place] [address] Care Team Providers Care Maintenance Mechanic Millwright Name Role Phone Teri Nuñez MD Primary Care Provider Unavailable Encounter Details Date Type Department Care Team (Late st Contact Info) Description 09/20/[address] [facility] [place] [address] Teri Nuñez MD Social History Tobacco Use [...] on filedocumented in this encounter Care Teams Maintenance Mechanic Millwright Relationship Specialty Start Date End Date Teri Nuñez MD PCP - General 06/18/11 documented as of this encounter
--- OUTSIDE RECORDS SUMMARY | 2024-05-26 02:42 | XMS_ITS | Encounter Summary ---
Author Organization [facility] Address [address] [place] [address]. [place] [address] [place] [address] Care Team Providers Care Coordinating Producer Name Role Phone Osbaldo Hong MD Primary Care Provider Soumya Sandhu PA-C Primary Care Provider +1- [phone] Encounter Details Date Type Department Care Team (Latest Contact Info) Description 11/26/2017 Scan HEALTH INFO SRVCS Scanned, Documents Social [...] on filedocumented in this encounter Care Teams Coordinating Producer Relationship Specialty Start Date End Date Osbaldo Hong MD PCP - General FAMILY PRACTICE 01/04/20 06/25/21 Soumya Franks PA-C [address] [place] [address] PCP - General PHYSICIAN CHIEF SECURITY OFFICER 06/26/21 07/03/21 documented as of this encounter
--- OUTSIDE RECORDS SUMMARY | 2024-05-26 02:42 | XMS_ITS | Encounter Summary ---
Author Organization [facility] Address [address] [place] [address]. [place], [place] [address] [place] [address] Care Team Providers Care Battery Assembler Plastic Name Role Phone Teri Nuñez MD Primary Care Provider Unavailable Osbaldo Hong MD Primary Care Provider Unav ailable TinyHenrry narvaezessa Nasra PA-C Primary Care Provider +1- [phone] Reason for Visit * Reason Comments Image (SCAN) Encounter Details Date Type Department Care Team (Latest Contact Info) Description 12/29/2001 Scan HEALTH INFO SRVCS Scanned, Documents Image (SCAN) Social History Tobacco Use Types [...] Priority Date/Time Associated Diagnosis Comments IMAGE GENERIC 12/29/2001 documented in this encounter Results * IMAGE GENERIC (12/29/2001) Anatomical Region Laterality Modality Other 12/29/2001 Narrative 12/29/2001 Ordered by an unspecified provider. us Documents Scanned SCANNING Final Result documented in this encounter Visit Diagnoses Not on filedocumented in this encounter Care Teams Battery Assembler Plastic Relationship Specialty Start Date End Date Teri Nuñez MD PCP - General 06/18/11 Osbaldo Hong MD PCP - General FAMILY PRACTICE 01/04/20 06/25/21 Soumya Franks PA-C [address] [place] [address] PCP - General PHYSICIAN AIRCRAFT SYSTEMS TECHNICIAN 06/26/21 07/03/21 documented as of this encounter
--- OUTSIDE RECORDS SUMMARY | 2024-05-26 02:42 | XMS_ITS | Encounter Summary ---
Author Organization [facility] Address [address] [place] [address]. [place], [place] [address] [place] [address] Care Team Providers Care Machine Oiler Name Role Phone Teri Nuñez MD Primary Care Provider Unavailable Osbaldo Hong MD Primary Care Provider Unav ailable Soumya Franks PA-C Primary Care Provider +1- [phone] Encounter Details Date Type Department Care Team (Latest Contact Info) Description 03/16/2016 Scan HEALTH INFO SRVCS Scanned, Documents Social [...] on filedocumented in this encounter Care Teams Machine Oiler Relationship Specialty Start Date End Date Teri Nuñez MD PCP - General 06/18/11 Osbaldo Hong MD PCP - General FAMILY PRACTICE 01/04/20 06/25/21 Soumya Franks PA-C [address] [place] [address] PCP - General PHYSICIAN STREET RAILWAY LINE INSTALLER 06/26/21 07/03/21 documented as of this encounter
--- OUTSIDE RECORDS SUMMARY | 2024-05-26 02:42 | XMS_ITS | Encounter Summary ---
Author Organization [facility] Address [address] [place] [address]. [place], [place] [address] [place] [address] Care Team Providers Care Padding Gluer Name Role Phone Teri Nuñez MD Primary Care Provider Unavailable Osbaldo Hong MD Primary Care Provider Unav ailable Soumya Franks PA-C Primary Care Provider +1- [phone] Encounter Details Date Type Department Care Team (Latest Contact Info) Description 12/28/2003 Scan HEALTH INFO SRVCS Scanned, Documents Social [...] on filedocumented in this encounter Care Teams Padding Gluer Relationship Specialty Start Date End Date Teri Nuñez MD PCP - General 06/18/11 Osbaldo Hong MD PCP - General FAMILY PRACTICE 01/04/20 06/25/21 Soumya Franks PA-C [address] [place] [address] PCP - General PHYSICIAN CONFIGURATION MANAGEMENT CONSULTANT 06/26/21 07/03/21 documented as of this encounter
--- OUTSIDE RECORDS SUMMARY | 2024-05-26 02:42 | XMS_ITS | Encounter Summary ---
Author Organization [facility] Address [address] [place] [address]. [place] [address] [place] [address] Care Team Providers Care Want Ad Supervisor Name Role Phone Osbaldo Hong MD Primary Care Provider Soumya Sandhu PA-C Primary Care Provider +1- [phone] Encounter Details Date Type Department Care Team (Latest Contact Info) Description 11/19/2018 Scan HEALTH INFO SRVCS Scanned, Documents Social [...] on filedocumented in this encounter Care Teams Want Ad Supervisor Relationship Specialty Start Date End Date Osbaldo Hong MD PCP - General FAMILY PRACTICE 01/04/20 06/25/21 Soumya Franks PA-C [address] [place] [address] PCP - General PHYSICIAN GLOBAL REGULATORY AFFAIRS MANAGER 06/26/21 07/03/21 documented as of this encounter
--- OUTSIDE RECORDS SUMMARY | 2024-05-26 02:42 | XMS_ITS | Encounter Summary ---
Author Organization [facility] Address [address] [place] [address]. [place], [place] [address] [place] [address] Care Team Providers Care Cant Gang Sawyer Name Role Phone Teri uNñez MD Primary Care Provider Unavailable Encounter Details Date Type Department Care Team (Late st Contact Info) Description 06/18/2011 Abstract [facility] [address] [place], [place] [id number] Mariaa Diaz MD [address] [facility] [address] [place], [place] [id number] Social History Tobacco Use Types Packs/Day Years Used Date Smoking Tobacco: Never Assessed Sex and Gender Information Value Date Recorded Sex Assigned at Not on file Legal Sex Male 8:09 PM CDT Gender Identity Not on file Sexual Orientation Not on file documented as of this encounter Plan of Treatment Not on file documented as of this encounter Visit Diagnoses Diagnosis Acute sinusitis Acute sinusitis, unspecified documented in this encounter Care Teams Cant Gang Sawyer Relationship Specialty Start Date End Date Teri Nuñez MD PCP - General 06/18/11 documented as of this encounter
--- OUTSIDE RECORDS SUMMARY | 2024-05-26 02:42 | XMS_ITS | Encounter Summary ---
Author Organization [facility] Address [address] [place] [address]. [place] [address] [place] [address] Care Team Providers Care Temporary Staff Accountant Name Role Phone Osbaldo Hong MD Primary Care Provider Soumya Sandhu PA-C Primary Care Provider +1- [phone] Encounter Details Date Type Department Care Team (Latest Contact Info) Description 12/03/2018 Scan HEALTH INFO SRVCS Scanned, Documents Social [...] on filedocumented in this encounter Care Teams Temporary Staff Accountant Relationship Specialty Start Date End Date Osbaldo Hong MD PCP - General FAMILY PRACTICE 01/04/20 06/25/21 Soumya Franks PA-C [address] [place] [address] PCP - General PHYSICIAN FREIGHT SHIPPING AGENT 06/26/21 07/03/21 documented as of this encounter
--- OUTSIDE RECORDS SUMMARY | 2024-05-26 02:42 | XMS_ITS | Encounter Summary ---
Author Organization [facility] Address [address] [place] [address]. [place], [place] [address] [place] [address] Care Team Providers Care Judicial Assistant Name Role Phone Teri Nuñez MD Primary Care Provider Unavailable Encounter Details Date Type Department Care Team (Late st Contact Info) Description 09/23/2006 Abstract [facility] [address] [place] [address] Teri Nuñez MD Social History Tobacco Use [...] on filedocumented in this encounter Care Teams Judicial Assistant Relationship Specialty Start Date End Date Teri Nuñez MD PCP - General 06/18/11 documented as of this encounter
--- OUTSIDE RECORDS SUMMARY | 2024-05-26 02:42 | XMS_ITS | Encounter Summary ---
Author Organization [facility] Address [address] [place] [address]. [place], [place] [address] [place] [address] Care Team Providers Care Scanning Tech Name Role Phone Teri Nuñez MD Primary Care Provider Unavailable Osbaldo Hong MD Primary Care Provider Unav ailable Soumya Franks PA-C Primary Care Provider +1- [phone] Reason for Visit * Reason Comments Lab (SCAN) Encounter Details Date Type Department Care Team (Latest Contact Info) Description 06/18/2014 Scan HEALTH INFO SRVCS Scanned, Documents Lab [...] Associated Diagnosis Comments OUTSIDE LAB (SCAN ORDER) 06/18/2014 documented in this encounter Results * OUTSIDE LAB (SCAN) (06/18/2014) 06/18/2014 Narrative 06/18/2014 Ordered by an unspecified provider. us Documents Scanned SCANNING Final Result documented in this encounter Visit Diagnoses Not on filedocumented in this encounter Care Teams Scanning Tech Relationship Specialty Start Date End Date Teri Nuñez MD PCP - General 06/18/11 Osbaldo Hong MD PCP - General FAMILY PRACTICE 01/04/20 06/25/21 Soumya Franks PA-C [address] [place] [address] PCP - General PHYSICIAN FOOTWEAR SALES LEADER 06/26/21 07/03/21 documented as of this encounter
--- OUTSIDE RECORDS SUMMARY | 2024-05-26 02:42 | XMS_ITS | Encounter Summary ---
Author Organization [facility] Address [address] [place] [address]. [place], [place] [address] [place] [address] Care Team Providers Care Student Ministry Pastor Name Role Phone Teri Nuñez MD Primary Care Provider Unavailable Osbaldo Hong MD Primary Care Provider Unav ailable TinyHenrry narvaezessa Nasra PA-C Primary Care Provider +1- [phone] Reason for Visit * Reason Comments Image (SCAN) Encounter Details Date Type Department Care Team (Latest Contact Info) Description 07/15/2012 Scan HEALTH INFO SRVCS Scanned, Documents Image [...] Priority Date/Time Associated Diagnosis Comments IMAGE GENERIC 07/15/2012 documented in this encounter Results * IMAGE GENERIC (07/15/2012) Anatomical Region Laterality Modality Other 07/15/2012 Narrative 07/15/2012 Ordered by an unspecified provider. us Documents Scanned SCANNING Final Result documented in this encounter Visit Diagnoses Not on filedocumented in this encounter Care Teams Student Ministry Pastor Relationship Specialty Start Date End Date Teri Nuñez MD PCP - General 06/18/11 Osbaldo Hong MD PCP - General FAMILY PRACTICE 01/04/20 06/25/21 Soumya Franks PA-C [address] [place] [address] PCP - General PHYSICIAN CHAR DUST CLEANER AND SALVAGER 06/26/21 07/03/21 documented as of this encounter
--- OUTSIDE RECORDS SUMMARY | 2024-05-26 02:42 | XMS_ITS | Encounter Summary ---
Author Organization [facility] Address [address] [place] [address]. [place] [address] [place] [address] Care Team Providers Care Keyboard Instrument Repairer Name Role Phone Osbaldo Hong MD Primary Care Provider Soumya Sandhu PA-C Primary Care Provider +1- [phone] Encounter Details Date Type Department Care Team (Latest Contact Info) Description 07/24/2018 Scan HEALTH INFO SRVCS Scanned, Documents Social [...] on filedocumented in this encounter Care Teams Keyboard Instrument Repairer Relationship Specialty Start Date End Date Osbaldo Hong MD PCP - General FAMILY PRACTICE 01/04/20 06/25/21 Soumya Franks PA-C [address] [place] [address] PCP - General PHYSICIAN FERRY CAPTAIN 06/26/21 07/03/21 documented as of this encounter
--- OUTSIDE RECORDS SUMMARY | 2024-05-26 02:42 | XMS_ITS | Encounter Summary ---
Author Organization [facility] Address [address] [place] [address]. [place], [place] [address] [place] [address] Care Team Providers Care High School Computer Science Teacher Name Role Phone Teri Nuñez MD Primary Care Provider Unavailable Osbaldo Hong MD Primary Care Provider Unav ailable Soumya Franks PA-C Primary Care Provider +1- [phone] Encounter Details Date Type Department Care Team (Latest Contact Info) Description 03/01/2016 Scan HEALTH INFO SRVCS Scanned, Documents Social [...] on filedocumented in this encounter Care Teams High School Computer Science Teacher Relationship Specialty Start Date End Date Teri Nuñez MD PCP - General 06/18/11 Osbaldo Hong MD PCP - General FAMILY PRACTICE 01/04/20 06/25/21 Soumya Franks PA-C [address] [place] [address] PCP - General PHYSICIAN PRODUCTION CONTROL EXPEDITER 06/26/21 07/03/21 documented as of this encounter
--- OUTSIDE RECORDS SUMMARY | 2024-05-26 02:42 | XMS_ITS | Encounter Summary ---
Author Organization [facility] Address [address] [place] [address]. [place], [place] [address] [place] [address] Care Team Providers Care Taproom Attendant Name Role Phone Teri Nuñez MD Primary Care Provider Unavailable Encounter Details Date Type Department Care Team (Late st Contact Info) Description 05/10/1999 Emergency [facility] [place] [address] Teri Nuñez MD Social History Tobacco Use [...] on filedocumented in this encounter Care Teams Taproom Attendant Relationship Specialty Start Date End Date Teri Nuñez MD PCP - General 06/18/11 documented as of this encounter
--- OUTSIDE RECORDS SUMMARY | 2024-05-26 02:42 | XMS_ITS | Encounter Summary ---
Author Organization [facility] Address [address] [place] [address]. [place], [place] [address] [place] [address] Care Team Providers Care Dice Dealer Name Role Phone Teri Nuñez MD Primary Care Provider Unavailable Osbaldo Hong MD Primary Care Provider Unav ailable Soumya Franks PA-C Primary Care Provider +1- [phone] Encounter Details Date Type Department Care Team (Latest Contact Info) Description 03/20/2005 Scan HEALTH INFO SRVCS Scanned, Documents Social [...] on filedocumented in this encounter Care Teams Dice Dealer Relationship Specialty Start Date End Date Teri Nuñez MD PCP - General 06/18/11 Osbaldo Hong MD PCP - General FAMILY PRACTICE 01/04/20 06/25/21 Soumya Franks PA-C [address] [place] [address] PCP - General PHYSICIAN CORRESPONDENCE CLERK 06/26/21 07/03/21 documented as of this encounter
--- OUTSIDE RECORDS SUMMARY | 2024-05-26 02:42 | XMS_ITS | Encounter Summary ---
Author Organization [facility] Address [address] [place] [address]. [place], [place] [address] [place] [address] Care Team Providers Care Platform Engineer Name Role Phone Teri Nuñez MD Primary Care Provider Unavailable Osbaldo Hong MD Primary Care Provider Unav ailable Soumya Franks PA-C Primary Care Provider +1- [phone] Encounter Details Date Type Department Care Team (Latest Contact Info) Description 04/23/2006 Scan HEALTH INFO SRVCS Scanned, Documents Social [...] on filedocumented in this encounter Care Teams Platform Engineer Relationship Specialty Start Date End Date Teri Nuñez MD PCP - General 06/18/11 Osbaldo Hong MD PCP - General FAMILY PRACTICE 01/04/20 06/25/21 Soumya Franks PA-C [address] [place] [address] PCP - General PHYSICIAN DENTAL TREATMENT COORDINATOR 06/26/21 07/03/21 documented as of this encounter
--- OUTSIDE RECORDS SUMMARY | 2024-05-26 02:42 | XMS_ITS | Encounter Summary ---
Author Organization [facility] Address [address] [place] [address]. [place], [place] [address] [place] [address] Care Team Providers Care Bioinformatics Scientist Name Role Phone Teri Nuñez MD Primary Care Provider Unavailable Osbaldo Hong MD Primary Care Provider Unav ailable Soumya Franks PA-C Primary Care Provider +1- [phone] Encounter Details Date Type Department Care Team (Latest Contact Info) Description 07/22/2014 Scan HEALTH INFO SRVCS Scanned, Documents Social [...] on filedocumented in this encounter Care Teams Bioinformatics Scientist Relationship Specialty Start Date End Date Teri Nuñez MD PCP - General 06/18/11 Osbaldo Hong MD PCP - General FAMILY PRACTICE 01/04/20 06/25/21 Soumya Franks PA-C [address] [place] [address] PCP - General PHYSICIAN GOLF BALL COVER TREATER 06/26/21 07/03/21 documented as of this encounter
--- OUTSIDE RECORDS SUMMARY | 2024-05-26 02:42 | XMS_ITS | Encounter Summary ---
Author Organization [facility] Address [address] [place] [address]. [place], [place] [address] [place] [address] Care Team Providers Care Scouring Machine Tender Name Role Phone Teri Nuñez MD Primary Care Provider Unavailable Encounter Details Date Type Department Care Team (Late st Contact Info) Description 08/30/2008 Emergency [facility] [place] [address] Teri Nuñez MD Social History Tobacco Use [...] on filedocumented in this encounter Care Teams Scouring Machine Tender Relationship Specialty Start Date End Date Teri Nuñez MD PCP - General 06/18/11 documented as of this encounter
--- OUTSIDE RECORDS SUMMARY | 2024-05-26 02:42 | XMS_ITS | Encounter Summary ---
Author Organization [facility] Address [address] [place] [address]. [place], [place] [address] [place] [address] Care Team Providers Care Supervisor Green End Department Name Role Phone Teri Nuñez MD Primary Care Provider Unavailable Osbaldo Hong MD Primary Care Provider Unav ailable TinyHenrry narvaezessa Nasra PA-C Primary Care Provider +1- [phone] Reason for Visit * Reason Comments Image (SCAN) Encounter Details Date Type Department Care Team (Latest Contact Info) Description 04/30/2007 Scan HEALTH INFO SRVCS Scanned, Documents Image [...] Priority Date/Time Associated Diagnosis Comments IMAGE GENERIC 04/30/2007 documented in this encounter Results * IMAGE GENERIC (04/30/2007) Anatomical Region Laterality Modality Other 04/30/2007 Narrative 04/30/2007 Ordered by an unspecified provider. us Documents Scanned SCANNING Final Result documented in this encounter Visit Diagnoses Not on filedocumented in this encounter Care Teams Supervisor Green End Department Relationship Specialty Start Date End Date Teri Nuñez MD PCP - General 06/18/11 Osbaldo Hong MD PCP - General FAMILY PRACTICE 01/04/20 06/25/21 Soumya Franks PA-C [address] [place] [address] PCP - General PHYSICIAN PARKS AND RECREATION MANAGER 06/26/21 07/03/21 documented as of this encounter
--- OUTSIDE RECORDS SUMMARY | 2024-05-26 02:42 | XMS_ITS | Encounter Summary ---
Author Organization [facility] Address [address] [place] [address]. [place], [place] [address] [place] [address] Care Team Providers Care Tour Leader Name Role Phone Teri Nuñez MD Primary Care Provider Unavailable Osbaldo Hong MD Primary Care Provider Unav ailable Soumya Franks PA-C Primary Care Provider +1- [phone] Encounter Details Date Type Department Care Team (Latest Contact Info) Description 01/20/2015 Scan HEALTH INFO SRVCS Scanned, Documents Social [...] on filedocumented in this encounter Care Teams Tour Leader Relationship Specialty Start Date End Date Teri Nuñez MD PCP - General 06/18/11 Osbaldo Hong MD PCP - General FAMILY PRACTICE 01/04/20 06/25/21 Soumya Franks PA-C [address] [place] [address] PCP - General PHYSICIAN PYTHON ARCHITECT 06/26/21 07/03/21 documented as of this encounter
--- OUTSIDE RECORDS SUMMARY | 2024-05-26 02:42 | XMS_ITS | Encounter Summary ---
Author Organization [facility] Address [address] [place] [address]. [place], [place] [address] [place] [address] Care Team Providers Care Twisting Frame Operator Name Role Phone Teri Nuñez MD Primary Care Provider Unavailable Osbaldo Hong MD Primary Care Provider Unav ailable TinyHenrry narvaezessa Nasra PA-C Primary Care Provider +1- [phone] Reason for Visit * Reason Comments Image (SCAN) Encounter Details Date Type Department Care Team (Latest Contact Info) Description 02/17/2015 Scan HEALTH INFO SRVCS Scanned, Documents Image [...] Priority Date/Time Associated Diagnosis Comments IMAGE GENERIC 02/17/2015 documented in this encounter Results * IMAGE GENERIC (02/17/2015) Anatomical Region Laterality Modality Other 02/17/2015 Narrative 02/17/2015 Ordered by an unspecified provider. us Documents Scanned SCANNING Final Result documented in this encounter Visit Diagnoses Not on filedocumented in this encounter Care Teams Twisting Frame Operator Relationship Specialty Start Date End Date Teri Nuñez MD PCP - General 06/18/11 Osbaldo Hong MD PCP - General FAMILY PRACTICE 01/04/20 06/25/21 Soumya Franks PA-C [address] [place] [address] PCP - General PHYSICIAN MUMPS DEVELOPER 06/26/21 07/03/21 documented as of this encounter
--- OUTSIDE RECORDS SUMMARY | 2024-05-26 02:42 | XMS_ITS | Encounter Summary ---
Author Organization [facility] Address [address] [place] [address]. [place], [place] [address] [place] [address] Care Team Providers Care Broadcast News Producer Name Role Phone Teri Nuñez MD Primary Care Provider Unavailable Encounter Details Date Type Department Care Team (Late st Contact Info) Description 12/29/2001 Emergency [facility] Emergency Room [address] [place], [place] [id number] Tiffani Psator MD [address] [place], [place] [address] Social History Tobacco Use Types Packs/Day Years [...] on filedocumented in this encounter Care Teams Broadcast News Producer Relationship Specialty Start Date End Date Teri Nuñez MD PCP - General 06/18/11 documented as of this encounter
--- OUTSIDE RECORDS SUMMARY | 2024-05-26 02:42 | XMS_ITS | Encounter Summary ---
Author Organization [facility] Address [address] [place] [address]. [place], [place] [address] [place] [address] Care Team Providers Care Waiter/Waitress Economy Class Name Role Phone Teri Nuñez MD Primary Care Provider Unavailable Osbaldo Hong MD Primary Care Provider Unav ailable Soumya Franks PA-C Primary Care Provider +1- [phone] Encounter Details Date Type Department Care Team (Latest Contact Info) Description 07/26/2014 Scan HEALTH INFO SRVCS Scanned, Documents Social [...] on filedocumented in this encounter Care Teams Waiter/Waitress Economy Class Relationship Specialty Start Date End Date Teri Nuñez MD PCP - General 06/18/11 Osbaldo Hong MD PCP - General FAMILY PRACTICE 01/04/20 06/25/21 Soumya Franks PA-C [address] [place] [address] PCP - General PHYSICIAN BIOFUELS RESEARCH SCIENTIST 06/26/21 07/03/21 documented as of this encounter
--- OUTSIDE RECORDS SUMMARY | 2024-05-26 02:42 | XMS_ITS | Encounter Summary ---
Author Organization [facility] Address [address] [place] [address]. [place], [place] [address] [place] [address] Care Team Providers Care Camp Counselor Name Role Phone Teri Nuñez MD Primary Care Provider Unavailable Encounter Details Date Type Department Care Team (Late st Contact Info) Description 12/27/2000 Abstract [facility] Tele[facility] [address] [address] [address] Teri Nuñez MD Social History Tobacco Use [...] on filedocumented in this encounter Care Teams Camp Counselor Relationship Specialty Start Date End Date Teri Nuñez MD PCP - General 06/18/11 documented as of this encounter
--- OUTSIDE RECORDS SUMMARY | 2024-05-26 02:42 | XMS_ITS | Encounter Summary ---
Author Organization [facility] Address [address] [place] [address]. [place], [place] [id number] [place] [address] Care Team Providers Care Clerical Investigator Name Role Phone Teri Nuñez MD Primary Care Provider Unavailable Encounter Details Date Type Department Care Team (Late st Contact Info) Description 08/07/2004 Abstract [place] [address] [place] [address] Michael Pagan MD Social History Tobacco Use Types Packs/Day [...] on filedocumented in this encounter Care Teams Clerical Investigator Relationship Specialty Start Date End Date Teri Nuñez MD PCP - General 06/18/11 documented as of this encounter
--- OUTSIDE RECORDS SUMMARY | 2024-05-26 02:42 | XMS_ITS | Encounter Summary ---
Author Organization [facility] Address [address] [place] [address]. [place], [place] [address] [place] [address] Care Team Providers Care Shiatsu Therapist Name Role Phone Teri Nuñez MD Primary Care Provider Unavailable Osbaldo Hong MD Primary Care Provider Unav ailable Soumya Franks PA-C Primary Care Provider [phone]- [phone] Encounter Details Date Type Department Care Team (Latest Contact Info) Description 08/13/2014 Scan HEALTH INFO [facility] Scanned, Documents Social [...] on filedocumented in this encounter Care Teams Shiatsu Therapist Relationship Specialty Start Date End Date Teri Nuñez MD PCP - General 06/18/11 Osbaldo Hong MD PCP - General FAMILY PRACTICE 01/04/20 06/25/21 Soumya Franks PA-C [address] [place] [address] PCP - General PHYSICIAN CATERING [place] 06/26/21 07/03/21 documented as of this encounter
--- OUTSIDE RECORDS SUMMARY | 2024-05-26 02:42 | XMS_ITS | Encounter Summary ---
Author Organization [facility] Address [address] [place] [address]. [place], [place] [id number] [place] [address] Care Team Providers Care Timber Treatment Plant Operator Name Role Phone Teri Nuñez MD Primary Care Provider Unavailable Osbaldo Hong MD Primary Care Provider Unav ailable TinyHenrry narvaezessa Nasra PA-C Primary Care Provider +1- [phone] Reason for Visit * Reason Comments Image (SCAN) Encounter Details Date Type Department Care Team (Latest Contact Info) Description 07/28/2014 Scan HEALTH INFO [facility] Scanned, Documents Image [...] Priority Date/Time Associated Diagnosis Comments IMAGE GENERIC 07/28/2014 documented in this encounter Results * IMAGE GENERIC (07/28/2014) Anatomical Region Laterality Modality Other 07/28/2014 Narrative 07/28/2014 Ordered by an unspecified provider. us Documents Scanned SCANNING Final Result documented in this encounter Visit Diagnoses Not on filedocumented in this encounter Care Teams Timber Treatment Plant Operator Relationship Specialty Start Date End Date Teri Nuñez MD PCP - General 06/18/11 Osbaldo Hong MD PCP - General FAMILY PRACTICE 01/04/20 06/25/21 Soumya Franks PA-C [address] [place] [address] PCP - General PHYSICIAN UTILITY WORKER FILM PROCESSING 06/26/21 07/03/21 documented as of this encounter
--- OUTSIDE RECORDS SUMMARY | 2024-05-26 02:42 | XMS_ITS | Encounter Summary ---
Author Organization [facility] Address [address] [place] [address]. [place] [address] [place] [address] Care Team Providers Care Pretzel Packer Name Role Phone Osbaldo Hong MD Primary Care Provider Soumya Sandhu PA-C Primary Care Provider [phone]- [phone] Encounter Details Date Type Department Care Team (Latest Contact Info) Description 01/09/2019 Scan HEALTH INFO [facility] Scanned, Documents Social [...] on filedocumented in this encounter Care Teams Pretzel Packer Relationship Specialty Start Date End Date Osbaldo Hong MD PCP - General FAMILY PRACTICE 01/04/20 06/25/21 Soumya Franks PA-C [address] [place] [id number] PCP - General PHYSICIAN MATERIAL REQUIREMENTS PLANNING MANAGER 06/26/21 07/03/21 documented as of this encounter
--- OUTSIDE RECORDS SUMMARY | 2024-05-26 02:45 | XMS_ITS | Encounter Summary ---
Author Organization [employer] Address [address] [place] [address] Care Team Providers Care Field Trainer Name Role Phone Unavailable Primary Care Provider Unavailabl e Encounter Details Date Type Department Care Team (Late st Contact Info) Description 10/01/2023 External Device Data [facility] ABSTRACTION Provider, Abstract NO ADDRESS ON FILE Social History Tobacco Use Types Packs/Day Years Used Date Smoking Tobacco: Never Assessed Feeling Safe Answer Date Recorded Are you in a relationship wi th someone who hurts you emotionally and/or physically? No 10/11/2022 Sex and Gender Information Value Date Recorded Sex Assigned at Not on file Gender Identity Not on file Sexual Orientation Not on file documented as of this encounter Plan of Treatment Not on file documented as of this encounter Visit Diagnoses Not on filedocumented in this encounter
--- OUTSIDE RECORDS SUMMARY | 2024-05-26 02:45 | XMS_ITS | Encounter Summary ---
Author Organization [employer] [facility] [employer] Address [address] [place] [address] Care Team Providers Care Financial Health Counselor Name Role Phone Unavailable Primary Care Provider Unavailabl e Encounter Details Date Type Department Care Team (Late st Contact Info) Description 08/13/2023 External Device Data [facility] ABSTRACTION Provider, Abstract [...]
--- OUTSIDE RECORDS SUMMARY | 2024-05-26 02:45 | XMS_ITS | Encounter Summary ---
Author Organization [employer] Address [address] [place] [address] Care Team Providers Care Terrazzo Layer Helper Name Role Phone Unavailable Primary Care Provider [...]
--- OUTSIDE RECORDS SUMMARY | 2024-05-26 02:45 | XMS_ITS | Encounter Summary ---
Author Organization [employer] Care Team Providers Care Stereo Map Plotter Operator Name Role Phone Provider, None Primary Care Provider Unavailabl e Encounter Details Date Type Department Care Team (Latest Contact Info) Description 01/15/2022 Travel Social History Tobacco Use Types Packs/Day Years Used Date Smoking Tobacco: Never Assessed Sex and Gender Information Value Date Recorded Sex Assigned at Not on file Legal Sex Male 5:01 AM CDT Gender Identity Not on file Sexual Orientation Not on file COVID-19 Exposure Response Date Recorded In the last 10 days, have yo u been in contact with someone who was confirmed or suspected to have Coronavirus/COVID-19? No / Unsure 01/15/2022 5:02 AM CDT documented as of this encounter Plan of Treatment Not on file documented as of this encounter Visit Diagnoses Not on filedocumented in this encounter Care Teams Stereo Map Plotter Operator Relationship Specialty Start Date End Date Provider, None [place] PCP - General 01/15/22 documented as of this encounter
--- OUTSIDE RECORDS SUMMARY | 2024-05-26 02:45 | XMS_ITS | Encounter Summary ---
Author Organization [facility] Address [address] [place] [address] Phone Care Team Providers Care Equipment Services Associate Name Role Phone Provider, None Primary Care Provider Unavailabl e Reason for Visit * Reason Comments Vomiting * Auth/Cert (Routine) Specialty Diagnoses / Procedures Referred By Contac t Referred To Contact Diagnoses Hypophosphatemia Intractable vomiting Cannabinoid hyperemesis syndrome Carter Hoover MD [address] [facility] [place] [address] Phone: tel: fax: Referral ID Status Reason Start Date Expiration Date Visits Re quested Visits Authorized [id number] 1 1 Encounter Details Date Type Department Care Team (Late st Contact Info) Description 04/24/2024 9:24 AM HEMATOLOGY SPECIALIST - 04/25/2024 4:10 PM HEMATOLOGY SPECIALIST Emergency [facility] On[facility] Acute [address] [place] [address] Indra Nair MD [address] [place] [address] Carter Hoover MD [address] [facility] [address] Cannabinoid hyperemesis syndrome Discharge Disposition: Discharged to home or Selfcare Social History Tobacco Use Types Packs/Day Years Used Date Smoking Tobacco: Never Assessed [facility] Utilities Answer Date Recorded In the past 12 months has e electric, gas, oil, or water company threatened to shut off services in your home? No 04/24/2024 Hunger Vital Sign Answer Date Recorded Within the past 12 months, y ou worried that your food would run out before you got the money to buy more. Never true 04/24/20 24 Within the past 12 months, t he food you bought just didn't last and you didn't have money to get more. Never true 04/24/2024 PRAPARE - Transportation Answer Date Re corded In the past 12 months, has l ack of transportation kept you from medical appointments or from getting medications? No 03/28 In the past 12 months, has l ack of transportation kept you from meetings, work, or from getting things needed for daily living? No 04/24/2024 Housing Stability Vital Sign Answer Caleb e Recorded In the last 12 months, was t here a time when you were not able to pay the mortgage or rent on time? No 04/24/2024 In the past 12 months, how m any times have you moved where you were living? 0 04/24/2024 At any time in the past 12 m [facility], were you homeless or living in a detention (including now)? No 04/24/2024 Sex and Gender Information Value Date Recorded Sex Assigned at Not on file Legal Sex Male 5:01 AM CDT Gender Identity Not on file Sexual Orientation Not on file documented as of this encounter Last Filed Vital Signs Vital Sign Reading Time Taken Comments Blood Pressure 126/74 04/25/2024 5:20 AM HEMATOLOGY SPECIALIST Pulse 72 04/25/2024 5:20 AM HEMATOLOGY SPECIALIST Temperature 36.8 ??C (98.3 ??F) 04/25/2024 5:20 AM CS T Respiratory Rate 18 04/25/2024 5:20 AM HEMATOLOGY SPECIALIST Oxygen Saturation 99% 04/25/2024 5:20 AM HEMATOLOGY SPECIALIST Inhaled Oxygen Concentration - - Weight 129.3 kg (285 lb) 04/24/2024 9:15 AM HEMATOLOGY SPECIALIST Height 182.9 cm (6') 04/24/2024 9:15 AM HEMATOLOGY SPECIALIST Body Mass Index 38.65 04/24/2024 9:15 AM HEMATOLOGY SPECIALIST documented in this encounter Functional Status * Within the last year, have you been humiliated or emotionally abused in other ways by your partner or ex-partner? Answer Date of Assessment Author No 04/24/2024 12:44 PM Monique Doss RN * Within the last year, have you been afraid of your partner or ex-partner? Answer Date of Assessment Author No 04/24/2024 12:44 PM Monique Doss RN * Within the last year, have you been raped or forced to have any kind of sexual activity by your partner or ex-partner? Answer Date of Assessment Author No 04/24/2024 12:44 PM Monique Doss RN * Within the last year, have you been kicked, hit, slapped, or otherwise physically hurt by your partner or ex-partner? Answer Date of Assessment Author No 04/24/2024 12:44 PM Monique Doss RN documented as of this encounter Discharge Summaries * Carter Hoover MD - 04/25/2024 1:34 PM CST [facility] DISCHARGE SUMMARY Name: Aj Lunsford Age: 23 y.o. : 2000 Attending Physician: Carter Hoover MD Admission Date/Time: 04/24/2024 Discharge Date: 04/25/2024 Primary Care Physician: SAYDA PROVIDER Discharging Provider: Carter Hoover MD INSTRUCTIONS FOR PHYSICIANS ON FOLLOW UP AFTER DISCHARGE: Follow-up Information None Pending Labs Order Current Status Comprehensive Metabolic Panel (CMP) In process PHOSPHORUS (PO4) In process Discharge Instructions: Discharge Condition: improved Disposition: Home Diet: Diet Active Orders Diet DIET GENERAL Number of Occurrences: Until Specified Activity: activity as tolerated Wound Care: None needed Resuscitation Status at Discharge: Full Code Primary Discharge Diagnosis: Cannabinoid hyperemesis syndrome Discharge Diagnoses: Active Hospital Problems Diagnosis Date Noted Cannabinoid hyperemesis syndrome 04/24/2024 Resolved Hospital Problems No resolved problems to display. HOSPITAL COURSE: Aj Lunsford was admitted 04/24/2024 with Cannabinoid hyperemesis syndrome . Presented for worsening abdominal pain nausea and vomiting. Endorsed using marijuana and has a history of cannabinoid hyperemesis in the past. Usually takes Reglan at home but ran out of it. Was initially found to have mild leukocytosis that improved and was thought to be reactive secondary to hypovolemia from nausea andvomiting. Over the course of hospitalization was placed on IV fluids and his diet was advanced to general diet. Prior to discharge he was eating and drinking well, oriented x3, walking independently.He was discharged and advised to follow up outpatient with PCP Provider Hand-off (discussion and date): DC summary sent to PCP Exam Day of Discharge: Temp Av.2 ??F (36.8 ??C) Min: 97.9 ??F (36.6 ??C) Max: 98.4 ??F (36.9 ??C) BP Min: 124/72 Max: 131/81 Pulse Av.8 Min: 62 Max: 75 Resp Av Min: 14 Max: 18 SpO2 Av.8 % Min: 96 % Max: 100 % General: alert, and in no distress. Neck: No JVD. CVS: RRR, no murmur. Chest: clear to auscultation, no wheezes, rales or rhonchi, symmetric air entry. Abdominal: soft, nontender, nondistended. Positive Bowel sounds. Extremities: no edema, no clubbing or cyanosis. Lab / Imaging Review: CBC: Lab Results Component Value Date WBC 15.59 (H) 04/25/2024 RBC 5.27 04/25/2024 HEMOGLOBIN 14.6 04/25/2024 PLATELETCNT 241 04/25/2024 CMP: Lab Results Component Value Date SODIUM 137 04/25/2024 POTASSIUM 3.4 (L) 04/25/2024 CHLORIDE 107 04/25/2024 CO2VEN 20 (L) 04/25/2024 ANIONGAP 10.0 04/25/2024 GLUCOSE 127 (H) 04/25/2024 BUN 7 (L) 04/25/2024 CREATININE 0.76 04/25/2024 BCRATIO8 9 (L) 04/25/2024 TOTALPROTEIN 6.9 04/25/2024 ALBUMIN 4.3 04/25/2024 AGRATIO 1.2 02/26/2023 CALCIUM 9.0 04/25/2024 TBIL 1.0 04/25/2024 AST 20 02/26/2023 SGPTALT 23 04/25/2024 ALKALINEPHO 87 04/25/2024 GFRNA >60 04/25/2024 GFRA >60 04/25/2024 GFRES >60 04/25/2024 DISCHARGE MEDICATION LIST: Medication List CHANGE how you take these medications metoclopramide 5 MG Tabs Commonly known as: REGLAN Take 1 Tablet by mouth 4 times daily (before meals and nightly) for 90 days. What changed: when to take this reasons to take this ondansetron 4 MG Tab-disperse Commonly known as: ZOFRAN-ODT Take 1 Tablet by mouth every 6 hours as needed for Nausea - 1st line for up to 90 doses. What changed: when to take this Where to Get Your Medications Information about where to get these medications is not yet available Ask your nurse or doctor about these medications metoclopramide 5 MG Tabs ondansetron 4 MG Tab-disperse Date of Service : 04/25/2024 Today I have seen and evaluated the patient. I have spent a total of 35 minutes on interview, examination, final orders, recommendations, and care coordination for this hospital discharge. Thank you very much for allowing the [facility] Adult Hospitalist Service to participate in the care of this patient. If you have any questions, please don't hesitate to call. Signed: Carter Hoover MD, 04/25/2024, 1:34 PM HEMATOLOGY SPECIALIST [facility]: [phone] ([facility]) TOLOGY SPECIALIST documented in this encounter Discharge Instructions * Discharge Instructions* Gisella Mcdermott RN - 04/25/2024 1:52 PM HEMATOLOGY SPECIALIST After your discharge, if you have any questions about appointments, medications, miscellaneous items, or follow-up care, please call the Discharge Support Program at [phone]. This number is specifically for assistance with any needs you may have post-discharge. TOLOGY SPECIALIST documented in this encounter Medications at Time of Discharge metoclopramide (REGLAN) 5 MG Tablet Take 1 Tablet by mouth 4 times daily (before meals and nightly) for 90 days. 120 Tablet 2 04/25/2024 07/24/2024 ondansetron (ZOFRAN-ODT) 4 MG TABLET DISPERSIBLE Take 1 Tablet by mouth every 6 hours as needed for Nausea - 1st line for up to 90 doses. 90 Tablet 04/25/2024 documented as of this encounter H&P Notes * Carter Hoover MD - 04/24/2024 2:44 PM CST [facility] ADMISSION HISTORY & PHYSICAL Date of visit: 04/24/2024 Assessment/Plan: Active Hospital Problems Diagnosis Date Noted Cannabinoid hyperemesis syndrome 04/24/2024 Resolved Hospital Problems No resolved problems to display. Plan Intractable nausea and vomiting : Could be secondary to cannabinoid hyperemesis syndrome Keep NPO for now. Continue IV fluids. Symptom control with p.r.n. Zofran and metoclopramide. If the nausea andvomiting continues to get worse we will consider CT abdomen Leukocytosis : Likely reactive in the setting of nausea and vomiting and hypovolemia. Continue IV fluids. Monitor for signs and symptoms of infection. Polysubstance abuse : UDS positive for opiates and marijuana. We will discuss about rehab on discharge. Admission Status (OBS or IP): IP The patient came from Home Code Status: Full If Regional Transfer, Facility of origin: DVT Prophylaxis: Lovenox 40mg Q24h Consult with: None Thank you very much for allowing the [facility] Adult Hospitalist Service to participate in the care of this patient CC: Nausea vomiting and abdominal pain. HPI: Aj Lunsford is a 23 y.o. male with a past medical history of polysubstance abuse who presented to ER for intractable nausea and vomiting. Started yesterday night. Patient was brought by his significant other who wanted the patient to be seen in ER. He does have history of intractable nausea that is typically well- controlled on Reglan but he ran out of his prescription. Does endorse associated abdominal pain. Uses marijuana regularly Past Medical History: He has no past medical history on file. Allergies: has No Known Allergies. Home Medications: Prior to Admission Medications Prescriptions Last Dose Informant Patient Reported? Taking? metoclopramide (REGLAN) 5 MG Tablet Not Taking No No Sig: Take 1 Tablet by mouth 4 times daily as needed for Nausea - 1st line. ondansetron (Zofran ODT) 4 MG TABLET DISPERSIBLE 04/24/2024 at AM No Yes Sig: Take 1 Tablet by mouth every 8 hours as needed for Nausea - 1st line for up to 12 doses. Facility-Administered Medications: None Surgical History: has no past surgical history on file. Social History: Family History: family history is not on file. Review of Systems: All systems reviewed and are negative except what is mentioned in HPI. Physical Exam: VITALS: Temp Av.3 ??F (36.8 ??C) Min: 98.3 ??F (36.8 ??C) Max: 98.3 ??F (36.8 ??C) BP Min: 135/86 Max: 150/81 Pulse Av.7 Min: 71 Max: 86 Heart Rate (Monitor) Av Min: 73 Max: 79 Resp Av.3 Min: 13 Max: 22 SpO2 Av % Min: 100 % Max: 100 % No intake/output data recorded. Weight: Wt Readings from Last 1 Encounters: 04/24/24 285 lb (129.3 kg) General: alert, well appearing, and in mild distress HEENT: Head: normocephalic, atraumatic Neck/Lymph: supple, no significant adenopathy Lungs: clear to auscultation, no wheezes or rales, unlabored breathing Cardiac: Regular rate and rhythm, S1S2 present, Abdomen: soft, mild periumbilical tenderness; bowel sounds normal; no masses; no organomegaly Extremities: peripheral pulses normal, no pedal edema, no clubbing or cyanosis Neuro: alert, oriented x3 Data Review: CBC: Lab Results Component Value Date WBC 13.89 (H) 04/24/2024 RBC 5.70 04/24/2024 HEMOGLOBIN 15.6 04/24/2024 PLATELETCNT 221 04/24/2024 CMP: Lab Results Component Value Date SODIUM 141 04/24/2024 POTASSIUM 3.9 04/24/2024 CHLORIDE 108 (H) 04/24/2024 CO2VEN 21 (L) 04/24/2024 ANIONGAP 12.0 04/24/2024 GLUCOSE 154 (H) 04/24/2024 BUN 15 04/24/2024 CREATININE 0.85 04/24/2024 BCRATIO8 18 04/24/2024 TOTALPROTEIN 7.6 04/24/2024 ALBUMIN 4.5 04/24/2024 AGRATIO 1.2 02/26/2023 CALCIUM 9.3 04/24/2024 TBIL 1.2 04/24/2024 AST 20 02/26/2023 SGPTALT 31 04/24/2024 ALKALINEPHO 89 04/24/2024 GFRNA >60 04/24/2024 GFRA >60 04/24/2024 GFRES >60 04/24/2024 Outside reports reviewed: none. Additional comments: None. Anticipated date of discharge: 04/26/2024 By: Carter Hoover MD 04/24/2024 2:44 PM HEMATOLOGY SPECIALIST Primary Care Physician: NONE PROVIDER TOLOGY SPECIALIST documented in this encounter ED Notes * Tyson Coelho CNA - 04/24/2024 12:38 PM CST Have made multiple attempts to collect urine sample from patient. Patient states he is unable to urinate. TOLOGY SPECIALIST TOLOGY SPECIALIST * Indra Nair MD - 04/24/2024 9:44 AM CST Chief Complaint Patient presents with Vomiting *Please note that this text was performed with a dictation software which is subject to phonetic and grammatical errors. while every effort is made to catch and correct those errors, it is not alwayspossible to do so. If there are any questions regarding a phrase/wording please do not hesitate to contact me for clarification* HPI 23 yo m with h/o polysubstance abuse to include marijuana and opiates, cannabinoid hyperemesis syndrome who presents to the ED with nausea and emesis which started this AM. He is brought in by significant other who noted onset of these symptoms and wanted him to be seen. He is typically well controlled with reglan but recently ran out of this prescription. No diarrhea, fevers, chills, chest pain,coughing other new features. He continues to smoke marijuana regularly. No current facility-administered medications for this encounter. Current Outpatient Medications Medication Sig Dispense Refill metoclopramide (REGLAN) 5 MG Tablet Take 1 Tablet by mouth 4 times daily (before meals and nightly)for 90 days. 120 Tablet 2 ondansetron (ZOFRAN-ODT) 4 MG TABLET DISPERSIBLE Take 1 Tablet by mouth every 6 hours as needed forNausea - 1st line for up to 90 doses. 90 Tablet 0 No Known Allergies No past medical history on file. No past surgical history on file. Social History Socioeconomic History Marital status: Single Spouse name: Not on file Number of children: Not on file Years of education: Not on file Highest education level: Not on file Occupational History Not on file Tobacco Use Smoking status: Not on file Smokeless tobacco: Not on file Substance and Sexual Activity Alcohol use: Not on file Drug use: Not on file Sexual activity: Not on file Other Topics Concern Not on file Social History Narrative Not on file Social Drivers of Health Financial Resource Needs: Low Risk (11/15/2023) Received from [facility] Overall Financial Resource Strain (CARDIA) Difficulty of Paying Living Expenses: Not very hard Food Insecurity Needs: No Food Insecurity (04/24/2024) Hunger Vital Sign Worried About Running Out of Food in the Last Year: Never true Ran Out of Food in the Last Year: Never true Transportation Needs: No Transportation Needs (04/24/2024) PRAPARE - Transportation Lack of Transportation (Medical): No Lack of Transportation (Non-Medical): No Physical Activity: Not on file Stress: Not on file Social Integration: Socially Isolated (11/15/2023) Received from [facility] Social Connection and Isolation Panel [NHANES] Frequency of Communication with Friends and Family: Three times a week Frequency of Social Gatherings with Friends and Family: Three times a week Attends Orthodoxy Services: Never Active Member of Clubs or Organizations: No Attends Club or Organization Meetings: Never Marital Status: Never Personal Safety: Low Risk (04/24/2024) Personal Safety Feels Unsafe at Home or Work/School: no Feels Threatened by Someone: no Does Anyone Try to Keep You From Having Contact with Others or Doing Things Outside Your Home?: no Physical Signs of Abuse Present: Not on file Housing Stability: Low Risk (04/24/2024) Housing Stability Vital Sign Unable to Pay for Housing in the Last Year: No Number of Times Moved in the Last Year: 0 Homeless in the Last Year: No BP 126/74 Pulse 72 Temp 98.3 ??F (36.8 ??C) (Oral) Resp 18 Ht 6' (1.829 m) Wt 285 lb (129.3 kg) SpO2 99% BMI 38.65 kg/m?? Review of Systems All other systems reviewed and are negative. Physical Exam Vitals and nursing note reviewed. Constitutional: General: He is in acute distress. Appearance: He is well-developed. He is not diaphoretic. HENT: Head: Normocephalic and atraumatic. Nose: Nose normal. Mouth/Throat: Mouth: Mucous membranes are moist. Eyes: Conjunctiva/sclera: Conjunctivae normal. Neck: Trachea: No tracheal deviation. Cardiovascular: Rate and Rhythm: Normal rate. Pulses: Normal pulses. Pulmonary: Effort: Pulmonary effort is normal. Abdominal: General: There is no distension. Palpations: Abdomen is soft. Tenderness: There is no abdominal tenderness. Musculoskeletal: General: Normal range of motion. Cervical back: Normal range of motion. Skin: General: Skin is warm and dry. Neurological: Mental Status: He is alert. Mental status is at baseline. Psychiatric: Mood and Affect: Mood normal. Procedures No results found for this or any previous visit (from the past 24 hours). Imaging Results None Medical Decision Making 23-year-old male with aforementioned history presents to the ED with reported nausea vomiting with onset of this morning. Suspect this is likely related to cannabinoid. Does have a strong odor of marijuana in the room at this time. Provided patient with IV fluids in addition to antiemetic. Will observe for improvement. Will check electrolytes for any significant deficiencies. Suspect he will be medically stable for discharge falling observation. Clinical Impression 1. Cannabinoid hyperemesis syndrome Acute 2. Hypophosphatemia Acute 3. Intractable vomiting Acute Disposition: Admit ED Course as of 05/04/24 1607 SatApr 24, 2024 1123 Critically low phosphorous that will need to be repleted over several hours. May warrant observation admission to ensure he is moving in the right direction. From an intractable emesis standpoint he does seem to be improving. [MD] 1135 Pt was reassessed and did endorse some ongoing nausea. Request placed from [facility] [] ED Course User Index [MD] Indra Nair MD TOLOGY SPECIALIST * Tere Stark RN - 04/24/2024 9:24 AM CST Bed: NY795-70 Expected date: Expected time: Means of arrival: Car Comments: TOLOGY SPECIALIST * Ann Shah RN - 04/24/2024 9:12 AM CST Triage: Pt to ED for vomiting that started around 0630. Pt reports hx of cannabinoid hyperemesis. Normally takes reglan and compazine for this. Does not have any medications at home. TOLOGY SPECIALIST documented in this encounter Miscellaneous Notes * PatientPass Patient Instructions - Gisella Mcdermott RN - 04/25/2024 1:53 PM CST Images from the original note were not included. Patient Education Table of Contents Nausea and Vomiting, Adult Metoclopramide Tablets Ondansetron Dissolving Tablets To view videos and all your education online visit, [email or web address] or scan this QR code with your smartphone. Access to this content will in one year. Nausea and Vomiting, Adult Nausea is feeling that you have an upset stomach and that you are about to vomit. Vomiting is when food in your stomach forcefully comes out of your mouth. Vomiting can make you feel weak. If you vomit, or if you are not able to drink enough fluids, you may not have enough water in your body (get dehydrated). If you do not have enough water in your body, you may: Feel tired. Feel thirsty. Have a dry mouth. Have cracked lips. Pee (urinate) less often. Older adults and people with other diseases or a weak body defense system (immune system) are at higher risk for not having enough water in the body. If you feel like you may vomit or you vomit, it is important to follow instructions from your doctor about how to take care of yourself. Follow these instructions at home: Watch your symptoms for any changes. Tell your doctor about them. Eating and drinking Take an ORS (oral rehydration solution). This is a drink that is sold at pharmacies and stores. Drink clear fluids in small amounts as you are able, such as: ? Water. ? Ice chips. ? Fruit juice that has water added (diluted fruit juice). ? Low-calorie sports drinks. Eat bland, fzum-ds-edefdy foods in small amounts as you are able, such as: ? Bananas. ? Applesauce. ? Rice. ? Low-fat (lean) meats. ? [place]. ? Crackers. Avoid drinking fluids that have a lot of sugar or caffeine in them. This includes energy drinks, sports drinks, and soda. Avoid alcohol. Avoid spicy or fatty foods. General instructions Take jodm-fot-tqfhwrm and prescription medicines only as told by your doctor. Drink enough fluid to keep your pee (urine) pale yellow. Wash your hands often with soap and water for at least 20 seconds. If you cannot use soap and water, use hand automotive dismantler. Make sure that everyone in your home washes their hands well and often. Rest at home until you feel better. Watch your condition for any changes. Take slow and deep breaths when you feel like you may vomit. Keep all follow-up visits. Contact a doctor if: Your symptoms get worse. You have new symptoms. You have a fever. You cannot drink fluids without vomiting. You feel like you may vomit for more than 2 days. You feel light-headed or dizzy. You have a headache. You have muscle cramps. You have a rash. You have pain while peeing. Get help right away if: You have pain in your chest, neck, arm, or jaw. You feel very weak or you faint. You vomit again and again. You have vomit that is bright red or looks like black coffee grounds. You have bloody or black poop (stools) or poop that looks like tar. You have a very bad headache, a stiff neck, or both. You have very bad pain, cramping, or bloating in your belly (abdomen). You have trouble breathing. You are breathing very quickly. Your heart is beating very quickly. Your skin feels cold and clammy. You feel confused. You have signs of losing too much water in your body, such as: ? Dark pee, very little pee, or no pee. ? Cracked lips. ? Dry mouth. ? Sunken eyes. ? Sleepiness. ? Weakness. These symptoms may be an emergency. Get help right away. Call 911. Do not wait to see if the symptoms will go away. Do not drive yourself to the hospital. Summary Nausea is feeling that you have an upset stomach and that you are about to vomit. Vomiting is when food in your stomach comes out of your mouth. Follow instructions from your doctor about eating and drinking. Take jaws-nkl-dboaswi and prescription medicines only as told by your doctor. Contact your doctor if your symptoms get worse or you have new symptoms. Keep all follow-up visits. This information is not intended to replace advice given to you by your health care provider. Make sure you discuss any questions you have with your health care provider. Document Released: 2008-10-29 Document Updated: 2021-11-17 Document Reviewed: 2021-11-17 [employer] Patient Education ? 2023 [employer]. Metoclopramide Tablets What is this medication? METOCLOPRAMIDE (met oh kloe PRA mide) treats reflux disease. It is prescribed when other medications have not worked. It may also be used to treat slow emptying of the digestive tract. It works by helping the muscles in your digestive tract move food. This empties your digestive tract, which relieves symptoms such as fullness, nausea, and heartburn. This medicine may be used for other purposes; ask your health care provider or pharmacist if you have questions. COMMON BRAND NAME(S): Reglan What should I tell my care team before I take this medication? They need to know if you have any of these conditions: Breast cancer Depression Diabetes Frequently drink alcohol Heart failure High blood pressure Kidney disease Liver disease Parkinson's disease or a movement disorder Pheochromocytoma Seizures Stomach obstruction, bleeding, or perforation An unusual or allergic reaction to metoclopramide, procainamide, other medications, foods, dyes, orpreservatives or trying to get Breast-feeding How should I use this medication? Take this medication by mouth with a glass of water. Follow the directions on the prescription label. Take this medication on an empty stomach, about 30 minutes before eating. Take your doses at regular intervals. Do not take your medication more often than directed. Do not stop taking except on the advice of your care team. A special MedGuide will be given to you by the pharmacist with each prescription and refill. Be sure to read this information carefully each time. Talk to your care team about the use of this medication in children. Special care may be needed. Overdosage: If you think you have taken too much of this medicine contact a poison control center or emergency room at once. NOTE: This medicine is only for you. Do not share this medicine with others. What if I miss a dose? If you miss a dose, skip it. Take your next dose at the normal time. Do not take extra or 2 doses at the same time to make up for the missed dose. What may interact with this medication? Alcohol Antihistamines for allergy, cough, and cold Atovaquone Atropine Bupropion Certain medications for anxiety or sleep Certain medications for bladder problems, such as oxybutynin, tolterodine Certain medications for depression or mental health conditions Certain medications for Parkinson's disease Certain medications for seizures, such as phenobarbital, primidone Certain medications for stomach problems, such as dicyclomine, hyoscyamine Certain medications for travel sickness, such as scopolamine Cyclosporine Digoxin Fosfomycin General anesthetics, such as halothane, isoflurane, methoxyflurane, propofol Insulin and other medications for diabetes Ipratropium MAOIs, such as Carbex, Eldepryl, Marplan, Nardil, and Parnate Medications that relax muscles for surgery Opioid medications for pain Paroxetine Phenothiazines, such as chlorpromazine, mesoridazine, prochlorperazine, thioridazine Posaconazole Quinidine Sirolimus Tacrolimus This list may not describe all possible interactions. Give your health care provider a list of all the medicines, herbs, non-prescription drugs, or dietary supplements you use. Also tell them if you smoke, drink alcohol, or use illegal drugs. Some items may interact with your medicine. What should I watch for while using this medication? It may take a few weeks for your stomach condition to start to get better. However, do not take this medication for longer than 12 weeks. The longer you take this medication, and the more you take it, the greater your chances are of developing serious side effects. If you are over 65 years of age, a female patient, or you have diabetes, you may be at an increased risk for side effects from this medication. Contact your care team immediately if you start having movements you cannot control such as lip smacking, rapid movements of the tongue, involuntary or uncontrollable movements of the eyes,head, arms and legs, or muscle twitches and spasms. Patients and their families should watch out for worsening depression or thoughts of suicide. Also watch out for any sudden or severe changes in feelings such as feeling anxious, agitated, panicky, irritable, hostile, aggressive, impulsive, severely restless, overly excited and hyperactive, or not being able to sleep. If this happens, especially at the beginning of treatment or after a change in dose, call your care team. Do not treat yourself for high fever. Ask your care team for advice. You may get drowsy or dizzy. Do not drive, use machinery, or do anything that needs mental alertness until you know how this medication affects you. Do not stand or sit up quickly, especially if you are over 65 years of age. This reduces the risk of dizzy or fainting spells. Alcohol can make you more drowsy and dizzy. Avoid alcoholic drinks. What side effects may I notice from receiving this medication? Side effects that you should report to your care team as soon as possible: Allergic reactions?skin rash, itching, hives, swelling of the face, lips, tongue, or throat High fever, stiff muscles, increased sweating, fast or irregular heartbeat, and confusion, which may be signs of neuroleptic malignant syndrome High prolactin level?unexpected breast tissue growth, discharge from the nipple, change in sex drive or performance, irregular menstrual cycle Increase in blood pressure Swelling of the ankles, hands, or feet Thoughts of suicide or self-harm, worsening mood, feelings of depression Uncontrolled and repetitive body movements, muscle stiffness or spasms, tremors or shaking, loss ofbalance or coordination, restlessness, shuffling walk, which may be signs of extrapyramidal symptoms (EPS) Side effects that usually do not require medical attention (report to your care team if they continue or are bothersome): Dizziness Drowsiness Fatigue Headache Trouble sleeping This list may not describe all possible side effects. Call your doctor for medical advice about side effects. You may report side effects to FDA at 8-568-IJM-1889. Where should I keep my medication? Keep out of the reach of children and pets. Store at room temperature between 20 and 25 degrees C (68 and 77 degrees F). Protect from light. Keep container tightly closed. Throw away any unused medication after the expiration date. NOTE: This sheet is a summary. It may not cover all possible information. If you have questions about this medicine, talk to your doctor, pharmacist, or health care provider. ? 2023 Elsevier/Gold Standard (2022-05-03) Ondansetron Dissolving Tablets What is this medication? ONDANSETRON (on MELVA se emeterio) prevents nausea and vomiting from chemotherapy, radiation, or surgery.It works by blocking substances in the body that may cause nausea or vomiting. It belongs to a group of medications called antiemetics. This medicine may be used for other purposes; ask your health care provider or pharmacist if you have questions. COMMON BRAND NAME(S): Flores CABAN What should I tell my care team before I take this medication? They need to know if you have any of these conditions: Heart disease Irregular heartbeat or rhythm Liver disease Low levels of magnesium or potassium in the blood An unusual or allergic reaction to ondansetron, other medications, foods, dyes, or preservatives or trying to get How should I use this medication? Take this medication by mouth. Take it as directed on the prescription label at the same time everyday. You do not need water to take this medication. Leave the tablet in the sealed pack until you are ready to take it. With dry hands, open the pack and gently remove the tablet. Place the tablet inthe mouth and allow it to dissolve. Then, swallow it. Talk to your care team about the use of this medication in children. Special care may be needed. Overdosage: If you think you have taken too much of this medicine contact a poison control center or emergency room at once. NOTE: This medicine is only for you. Do not share this medicine with others. What if I miss a dose? If you miss a dose, take it as soon as you can. If it is almost time for your next dose, take only that dose. Do not take double or extra doses. What may interact with this medication? Do not take this medication with any of the following: Apomorphine Certain medications for fungal infections, such as fluconazole, ketoconazole, posaconazole Cisapride Dronedarone Levoketoconazole Pimozide Quinidine Thioridazine This medication may also interact with the following: Certain medications for depression, anxiety, or other mental health conditions Certain medications for migraines, such as sumatriptan Linezolid Methylene blue Opioids Other medications that cause heart rhythm changes, such as dofetilide or ziprasidone Sarah's wort Stimulant medications for ADHD, weight loss, or staying awake Tryptophan This list may not describe all possible interactions. Give your health care provider a list of all the medicines, herbs, non-prescription drugs, or dietary supplements you use. Also tell them if you smoke, drink alcohol, or use illegal drugs. Some items may interact with your medicine. What should I watch for while using this medication? Check with your care team as soon as you can if you have any sign of an allergic reaction. What side effects may I notice from receiving this medication? Side effects that you should report to your care team as soon as possible: Allergic reactions?skin rash, itching, hives, swelling of the face, lips, tongue, or throat Bowel blockage?stomach cramping, unable to have a bowel movement or pass gas, loss of appetite, vomiting Chest pain (angina)?pain, pressure, or tightness in the chest, neck, back, or arms Heart rhythm changes?fast or irregular heartbeat, dizziness, feeling faint or lightheaded, chest pain, trouble breathing Irritability, confusion, fast or irregular heartbeat, muscle stiffness, twitching muscles, sweating, high fever, seizure, chills, vomiting, diarrhea, which may be signs of serotonin syndrome Side effects that usually do not require medical attention (report to your care team if they continue or are bothersome): Constipation Diarrhea General discomfort and fatigue Headache This list may not describe all possible side effects. Call your doctor for medical advice about side effects. You may report side effects to FDA at 2-263-MBN-0216. Where should I keep my medication? Keep out of the reach of children and pets. Store between 2 and 30 degrees C (36 and 86 degrees F). Throw away any unused medication after the expiration date. NOTE: This sheet is a summary. It may not cover all possible information. If you have questions about this medicine, talk to your doctor, pharmacist, or health care provider. ? 2023 Elsevier/Gold Standard (2023-07-17) TOLOGY SPECIALIST * Plan of Care - Fadumo Howard - 04/25/2024 1:45 PM CST Discharge Evaluation Discharge Evaluation Screen completed telephonically with Aj. Screen Result: Assign to Technical Inspector for review due to No Primary Care Provider Additional care transition risk factors: [place] Medicaid (traditional OR Managed) primary coverage Items exclusively in Technical Inspector domain: None Anticipated Discharge Plan: Home 04/25/24 Patient/ patient business services sales representative's preferences regarding the discharge plan: Home, open to additional services/ equipment if recommended Anticipated Transportation at discharge, per patient/ business services sales representative: per girlfriend Confidence level of patient returning to their permanent living situation, without additional services or equipment (as reported by patient or screen interviewee): very confident Transfer / Re-hospitalization Transfer: No Rehospitalization: Aj is NOT a 30 day re-hospitalization Current Living Environment/ Services Facesheet Verified: Permanent address: address correct Phone numbers verified or updated Yes Patients Contact Names/ phone numbers verified or updated - Yes Marital Status: Single Permanent living situation: Aj lives in a two-story house without a basement. Stairs to ENTER home: Yes Number of stairs to enter: 12 Railing: Yes Ramp: No Stairs INSIDE home: Yes Stairs inside home: Patient states that there are 8 steps to the upper level of the home where bedroom and bathroom are located. All other needs met on the main floor of the home. Persons living with Aj: Patient lives with: Pet(s) - dog and cat Grandparent(s) - grandmother and grandfather Patient provides care for: Pet(s) - explain: general care for dog and cat Describe Patient's Support System (persons available to provide practical support, i.e.family, neighbors, and friends/): Robust - 3 or more people identified who can provide support AND someone able to provide support lives with patient or support is available at all times Patient states that he has 3+ people that he can rely on for support after discharge should he require it. Patient lives in the home with his grandparents and additional support is available through his significant other Did Patient Appoint a Caregiver? refused Current In-Home Services: No current services Current Outpatient Services: No ADLs/ IADLs/ Equipment Activities of Daily Living: Eating:independent (no equipment or assistance person(s)) Mobility: independent (no equipment or assistance person(s)) Dressing / Bathing: independent (no equipment or assistance person(s)) Toileting: independent (no equipment or assistance person(s)) Comments: None Instrumental Activities of Daily Living Medications: Independent Meal Preparation: Independent Housekeeping: Independent Laundry: Independent Shopping: Independent Comments: None Durable Medical Equipment owned and/or using: None Respiratory Equipment (only displays items if patient has equipment, blank if not) None Equipment comments/concerns: None Financial / Transportation / Access to Health Care Employment: not employed Transportation: drives self Transportation comments: None Primary Care Provider: NONE PROVIDER PCP last seen: N/A - patient does not have a PCP. Primary Medical Coverage: [facility] Medicaid Secondary Medical Coverage: N/A Aj does not have [employer] coverage. Prescription Drug Coverage: Patient's MEDICAID (traditional or managed) Preferred Pharmacy: [facility]/pharmacy #[id number] - [place] - [address] [facility] [address] Concerns Affording Medications, Co-pays, or Medical care: No Media contains: HC-POA, Guardianship, or current HC-Surrogacy? No. None on file No new referrals or updates for post-acute hospital services. TOLOGY SPECIALIST * Plan of Care - Marty العلي RN - 04/25/2024 5:00 AM CST Problem: Adult Inpatient Plan of Care Goal: Plan of Care Review Outcome: Ongoing (see interventions/notes) Flowsheets (Taken 04/25/2024 0458) Plan of Care Reviewed With: patient Progress: progress towards functional goals is fair Today's Goal: Patient will report <4 episodes of emesis throughout the duration of the shift. Outcome Evaluation: Goal not met Does the patient need assistance with discharge and/or transitioning to the next level of care?: No, no needs anticipated Goal: Optimal Comfort and Wellbeing Outcome: Ongoing (see interventions/notes) Goal: Readiness for Transition of Care Outcome: Ongoing (see interventions/notes) TOLOGY SPECIALIST * Interdisciplinary - Kiki Mac - 04/25/2024 12:30 AM CST Patient refused, RN eva TOLOGY SPECIALIST * Interdisciplinary - Dina Riddle - 04/24/2024 3:17 PM CST Discharge Evaluation Attempt ZHAO (JU) - Unable to complete screen due to no answer on room phone. Home phone rang and answered by EB. Attempted at 04/24/2024 at 3:23 PM HEMATOLOGY SPECIALIST TOLOGY SPECIALIST documented in this encounter Plan of Treatment Scheduled Orders Name Type Priority Associated Diagnoses Orde r Schedule Pulse Oximetry, Spot PFT Routine WITH VITALS until discontinued starting 04/24/2024 documented as of this encounter Procedures Procedure Name Priority Date/Time Associated Diagnosis Comments CBC WITH AUTO DIFFERENTIAL Routine 04/25/2024 1:00 PM HEMATOLOGY SPECIALIST PHOSPHORUS (PO4) Routine 04/25/2024 1:00 PM HEMATOLOGY SPECIALIST CMP (COMPREHENSIVE METABOLIC PANEL) Routine 04/25/2024 1:00 PM HEMATOLOGY SPECIALIST COMPLETE BLOOD COUNT (CBC) WITH DIFF Routine 04/25/2024 1:00 PM HEMATOLOGY SPECIALIST EKG 12 LEAD STAT 04/25/2024 1:40 AM HEMATOLOGY SPECIALIST UR DRUG SCREEN W/O CONFIRMATION STAT 04/24/2024 3:43 PM HEMATOLOGY SPECIALIST CBC WITH AUTO DIFFERENTIAL STAT 04/24/2024 10:11 AM HEMATOLOGY SPECIALIST PHOSPHORUS (PO4) STAT 04/24/2024 10:1 1 AM HEMATOLOGY SPECIALIST MAGNESIUM (MG) STAT 04/24/2024 10:11 AM HEMATOLOGY SPECIALIST CMP (COMPREHENSIVE METABOLIC PANEL) STAT 04/24/2024 10:11 AM HEMATOLOGY SPECIALIST COMPLETE BLOOD COUNT (CBC) WITH DIFF STAT 04/24/2024 10:11 AM HEMATOLOGY SPECIALIST documented in this encounter Results * (ABNORMAL) CBC with Auto Differential (04/25/2024 1:00 PM HEMATOLOGY SPECIALIST) Only the most recent of2 resultswithin the time period is included. WBC 15.59(H) 4.00 - 12.00 10(3)/mcL 04/25/2024 1:18 PM HEMATOLOGY SPECIALIST [facility] RBC 5.27 4.40 - 5.80 10(6)/mcL 04/25/2024 1:18 PM HEMATOLOGY SPECIALIST [facility] HEMOGLOBIN (HGB) 14.6 13.0 - 16.5 g/dL 04/25/2024 1:18 PM HEMATOLOGY SPECIALIST [facility] HEMATOCRIT (HCT) 42.9 38.0 - 50.0 % 04/25/2024 1:18 PM [facility] MCV 81.4(L) 82.0 - 96.0 fL 04/25/2024 1:18 PM [facility] MCH 27.7 26.0 - 32.0 pg 04/25/2024 1:18 PM [facility] MCHC 34.0 31.0 - 36.0 g/dL 04/25/2024 1:18 PM [facility] PLATELET COUNT 241 140 - 440 10(3)/[facility] 04/25/2024 1:18 PM [facility] RDW 12.7 11.8 - 15.5 % 04/25/2024 1:18 PM [facility] MPV 10.5 8.0 - 12.6 fL 04/25/2024 1:18 PM [facility] NEUTROPHILS 82.6(H) 40.0 - 68.0 % 04/25/2024 1:18 PM [facility] LYMPHOCYTES 10.1(L) 19.0 - 49.0 % 04/25/2024 1:18 PM [facility] MONOCYTES 7.2 3.0 - 13.0 % 04/25/2024 1:18 PM [facility] EOSINOPHILS 0.0 0.0 - 8.0 % 04/25/2024 1:18 PM [facility] BASOPHILS 0.1 0.0 - 1.0 % 04/25/2024 1:18 PM [facility] ABSOLUTE NEUTROPHILS 12.87(H) 1.40 - 5.30 10(3)/[facility] 04/25/2024 1:18 PM [facility] ABSOLUTE LYMPHOCYTES 1.57 0.90 - 3.30 10(3)/[facility] 04/25/2024 1:18 PM [facility] ABSOLUTE MONOCYTES 1.13(H) 0.10 - 0.90 10(3)/[facility] 04/25/2024 1:18 PM [facility] ABSOLUTE EOSINOPHIL 0.00 0.00 - 0.50 10(3)/[facility] 04/25/2024 1:18 PM [facility] ABSOLUTE BASOPHILS 0.02 0.00 - 0.10 10(3)/mcL 04/25/2024 1:18 PM HEMATOLOGY SPECIALIST [facility] NRBC PER 100 WBC 0 04/25/20 24 1:18 PM HEMATOLOGY SPECIALIST [facility] Blood Venipuncture / Unknown 04/25/2024 1:00 PM HEMATOLOGY SPECIALIST 04/25/2024 1:08 PM HEMATOLOGY SPECIALIST us Fnu Kiko GARCIA HEMATOLOGY ORDERABLES Final Resu lt [facility] [address] [place] [address], * (ABNORMAL) Comprehensive Metabolic Panel (CMP) (04/25/2024 1:00 PM HEMATOLOGY SPECIALIST) Only the most recent of2 resultswithin the time period is included. SODIUM 137 136 - 145 mmol/L 04/25/2024 1:46 PM [facility] POTASSIUM 3.4(L) 3.5 - 5.1 mmol/L 04/25/2024 1:46 PM [facility] CHLORIDE 107 98 - 107 mmol/L 04/25/2024 1:46 PM [facility] CO2, VENOUS 20(L) 22 - 30 mmol/L 04/25/2024 1:46 PM [facility] ANION GAP 10.0 <18.0 mmol/L 04/25/2024 1:46 PM [facility] GLUCOSE 127(H) 70 - 99 mg/dL 04/25/2024 1:46 PM [facility] BUN 7(L) 9 - 21 mg/dL 04/25/2024 1:46 PM [facility] CREATININE, BLOOD 0.76 0.70 - 1.30 mg/dL 04/25/2024 1:46 PM [facility] BUN/CREATININE RATIO 9(L) 12 - 20 ratio 04/25/2024 1:46 PM [facility] TOTAL PROTEIN 6.9 6.3 - 8.2 g/dL 04/25/2024 1:46 PM [facility] ALBUMIN 4.3 3.5 - 5.0 g/dL 04/25/2024 1:46 PM HEMATOLOGY SPECIALIST [facility] A/G RATIO 1.7 1.0 - 2.2 04/25/2024 1:46 PM HEMATOLOGY SPECIALIST [facility] CALCIUM 9.0 8.7 - 10.5 mg/dL 04/25/2024 1:46 PM HEMATOLOGY SPECIALIST [facility] T BILI 1.0 0.2 - 1.2 mg/dL 04/25/2024 1:46 PM HEMATOLOGY SPECIALIST [facility] SGOT (AST) 16 5 - 34 U/L 04/25/2024 1:46 PM HEMATOLOGY SPECIALIST [facility] SGPT (ALT) 23 0 - 55 U/L 04/25/2024 1:46 PM HEMATOLOGY SPECIALIST [facility] ALKALINE PHOSPHATASE 87 40 - 150 U/L 04/25/2024 1:46 PM HEMATOLOGY SPECIALIST [facility] GFR, ESTIMATED >60 >=60 04/25/2024 1:46 PM HEMATOLOGY SPECIALIST [facility] Comment: Creatinine Clearance is the preferred criteria for selecting drug dose adjustments in renally impaired patients. ??The GFR is provided as additional pertinent clinical information. GFR is reported in mL/min/1.73 sq m. Calculation based on the Chronic Kidney Disease Epidemiology Collaboration (CKD- EPI) equation refit without adjustment for race. GFR, EST. >60 >=60 024 1:46 PM HEMATOLOGY SPECIALIST [facility] GFR, EST. NONAFRICAN >60 >=60 04/25/2024 1:46 PM HEMATOLOGY SPECIALIST [facility] Blood Venipuncture / Unknown 04/25/2024 1:00 PM HEMATOLOGY SPECIALIST 04/25/2024 1:08 PM HEMATOLOGY SPECIALIST us Bhanuu Kiko GARCIA CHEMISTRY ORDERABLES Final Resul t [facility] [address] [place] [address], [place] * (ABNORMAL) PHOSPHORUS (PO4) (04/25/2024 1:00 PM HEMATOLOGY SPECIALIST) Only the most recent of2 resultswithin the time period is included. PHOSPHORUS 2.4(L) 2.5 - 4.5 mg/dL 04/25/2024 1:46 PM HEMATOLOGY SPECIALIST [facility] Blood Venipuncture / Unknown 04/25/2024 1:00 PM HEMATOLOGY SPECIALIST 04/25/2024 1:08 PM HEMATOLOGY SPECIALIST Carter Hoover MD CHEMISTRY ORDERABLES Final Resul t [facility] [address] [facility] [place] [address], [place] * EKG 12 LEAD (04/25/2024 1:40 AM HEMATOLOGY SPECIALIST) Ventricular Rate 62 BPM EXTERNAL EKG Atrial Rate 62 BPM EXTERNAL EKG P-R Interval 146 ms EXTERNAL EKG QRS Duration 110 ms EXTERNAL EKG Q-T Duration 412 ms EXTERNAL EKG QTC CALCULATION 418 ms EXTERNAL EKG P [place] 16 degrees EXTERNAL EKG R [place] 61 degrees EXTERNAL EKG T [place] 30 degrees EXTERNAL EKG 04/25/2024 1:40 AM HEMATOLOGY SPECIALIST Impressions EXTERNAL EKG - 04/25/2024 6:09 AM HEMATOLOGY SPECIALIST NORMAL SINUS RHYTHM WITH SINUS ARRHYTHMIA INCOMPLETE RIGHT BUNDLE BRANCH BLOCK BORDERLINE ECG ~ Confirmed by Hernan Merchant Siddharth ([id number]) on 04/25/2024 6:09:38 AM Narrative Procedure Note Carlton Merchant MD - 04/25/2024 IMPRESSION: NORMAL SINUS RHYTHM WITH SINUS ARRHYTHMIA INCOMPLETE RIGHT BUNDLE BRANCH BLOCK BORDERLINE ECG ~ Confirmed by Hernan Merchant Siddharth ([id number]) on 04/25/2024 6:09:38 AM Leonard Samson MD IMG ECG ORDERABLE S Final Result EXTERNAL EKG * (ABNORMAL) Ur Drug Screen w/o Confirmation (04/24/2024 3:43 PM HEMATOLOGY SPECIALIST) UR AMPHETAMINE NON DETECTED NON DETECTED 04/24/2024 4:22 PM HEMATOLOGY SPECIALIST [facility] Comment: FOR MEDICAL USE ONLY. CUTOFF CONCENTRATION FOR DETECTED RESULT: AMPHETAMINE: ??500 NG/ML UR BARBITURATE NON DETECTED NON DETECTED 04/24/2024 4:22 PM HEMATOLOGY SPECIALIST [facility] Comment: FOR MEDICAL USE ONLY. CUTOFF CONCENTRATION FOR DETECTED RESULT: BARBITUATES: ? 200 NG/ML UR BENZODIAZEPINES NON DETECTED NON DETECTED 04/24/2024 4:22 PM HEMATOLOGY SPECIALIST [facility] Comment: FOR MEDICAL USE ONLY. CUTOFF CONCENTRATION FOR DETECTED RESULT: BENZODIAZAPINE: ??200 NG/ML UR COCAINE METABOLITE NON DETECTED NON DETECTED 04/24/2024 4:22 PM HEMATOLOGY SPECIALIST [facility] Comment: FOR MEDICAL USE ONLY. CUTOFF CONCENTRATION FOR DETECTED RESULT: COCAINE: ??150 NG/ML UR OPIATES DETECTED(A) NON DETECTED 04/24/2024 4:22 PM HEMATOLOGY SPECIALIST [facility] Comment: FOR MEDICAL USE ONLY. CUTOFF CONCENTRATION FOR DETECTED RESULT: OPIATES: ? 300 NG/ML UR PHENCYCLIDINE NON DETECTED NON DETECTED 04/24/2024 4:22 PM HEMATOLOGY SPECIALIST [facility] Comment: FOR MEDICAL USE ONLY. CUTOFF CONCENTRATION FOR DETECTED RESULT: PCP: ? 25 NG/ML UR CANNABINOID DETECTED(A) NON DETECTED 04/24/2024 4:22 PM HEMATOLOGY SPECIALIST [facility] Comment: FOR MEDICAL USE ONLY. CUTOFF CONCENTRATION FOR DETECTED RESULT: THC (MARIJUANA): 50 NG/ML Urine Non-Phlebotomy Collection / Unknown 04/24/2024 3:43 PM HEMATOLOGY SPECIALIST 04/24/2024 3:44 PM HEMATOLOGY SPECIALIST us Carter Hoover MD URINE ORDERABLES Final Result [facility] [address] [place] [address], * Magnesium (Mg) (04/24/2024 10:11 AM HEMATOLOGY SPECIALIST) MAGNESIUM 1.7 1.6 - 2.6 mg/dL 04/24/2024 10:58 AM HEMATOLOGY SPECIALIST [facility] Blood Venipuncture / Unknown 04/24/2024 10:11 AM HEMATOLOGY SPECIALIST 04/24/2024 10:15 AM HEMATOLOGY SPECIALIST us Indra Nair MD CHEMISTRY ORDERABLES Fin al Result [facility] [address] [place] [address], [place] documented in this encounter Visit Diagnoses Diagnosis Cannabinoid hyperemesis syndrome- Primary Cannabinoid hyperemesis syndrome Hypophosphatemia Disorders of phosphorus metabolism Intractable vomiting Persistent vomiting documented in this encounter Admitting Diagnoses Diagnosis Cannabinoid hyperemesis syndrome documented in this encounter Administered Medications Inactive Administered Medications - up to 3 most recent administrations Medication Order MAR Action Action Date Dose Rate Site diphenhydrAMINE (BENADRYL) injection 50 mg 50 mg, Intravenous, ONCE, 1 dose, On Sat04/24/24 at 1000 Given 04/24/2024 10:05 AM HEMATOLOGY SPECIALIST 50 mg droperidol (INAPSINE) injection 2.5 mg 2.5 mg, Intravenous, ONCE, 1 dose, On Sat04/24/24 at 1100 Given 04/24/2024 10:47 AM HEMATOLOGY SPECIALIST 2.5 mg lactated ringers infusion at 125 mL/hr, Intravenous, CONTINUOUS, Starting on Sat04/24/24 at 1300, Until 04/25/24 at 1259 New Bag 04/24/2024 2:53 PM HEMATOLOGY SPECIALIST 125 mL/hr metoclopramide (REGLAN) injection 10 mg 10 mg, Intravenous, ONCE, 1 dose, On Sat04/24/24 at 1000 Given 04/24/2024 10:06 AM HEMATOLOGY SPECIALIST 10 mg metoclopramide (REGLAN) injection 10 mg 10 mg, Intravenous, EVERY 6 HOURS PRN, Starting on Sat04/24/24 at 1235, Until 04/25/24 at 1810, Nausea - 2nd line, Second Line Antiemetic Give if nausea/vomiting recurs after ondansetron. Given 04/25/2024 6:43 AM HEMATOLOGY SPECIALIST 10 mg Given 04/24/2024 11:23 PM HEMATOLOGY SPECIALIST 10 mg Given 04/24/2024 5:05 PM HEMATOLOGY SPECIALIST 10 mg ondansetron (ZOFRAN) injection 4 mg 4 mg, Intravenous, EVERY 6 HOURS PRN, Starting on Sat04/24/24 at 1235, Until 04/25/24 at 1810, 1. First Line Antiemetic. 2. Use Injection only if patient unable to tolerate oral medications., Nausea - 1st line Given 04/25/2024 11:46 AM HEMATOLOGY SPECIALIST 4 mg IV Linked Line Given 04/25/2024 5:16 AM HEMATOLOGY SPECIALIST 4 mg Given 04/24/2024 10:43 PM HEMATOLOGY SPECIALIST 4 mg ondansetron (ZOFRAN-ODT) disintegrating tablet 4 mg 4 mg, Oral, EVERY 6 HOURS PRN, Starting on Sat04/24/24 at 1235, Until 04/25/24 at 1810, Nausea - 1st line, 1. First Line Antiemetic. 2. Use PO form unless unable to tolerate PO medications, then use Injection potassium phosphates 30 mmol in dextrose 5 % 250 mL IVPB 30 mmol, Intravenous, ONCE, 1 dose, On Sat04/24/24 at 1200, Administer over 6 Hours, Unless otherwise directed, for doses less than or equal to 21mol administer over 4 hours. For doses 22mmol ? 40mmol administer over 6 hours. Concentrations over 0.12 mmol/mL require administration via central line. New Bag 04/24/2024 11:54 AM HEMATOLOGY SPECIALIST 30 mmol 41.7 mL/hr Prochlorperazine Edisylate (COMPAZINE) injection 5 mg 5 mg, Intravenous, ONCE, 1 dose, On 04/25/24 at 0230 Given 04/25/2024 3:05 AM HEMATOLOGY SPECIALIST 5 mg sodium chloride 0.9 % 1,000 mL IV bolus Intravenous, ONCE, 1 dose, On Sat04/24/24 at 1000, Administer over 1 Hours New Bag 04/24/2024 10:05 AM HEMATOLOGY SPECIALIST 1000 mL/hr documented in this encounter Active and Recently Administered Medications Times are shown in HEMATOLOGY SPECIALIST. Scheduled Medication Order 04/23/2024 04/24/2024 04/25/2024 diphenhydrAMINE (BENADRYL) injection 50 mg (COMPLETED) 50 mg, Intravenous, ONCE, 1 dose, On Sat04/24/24 at 1000 1005 (Given - Provider: Christiano Avendano, CHERY) droperidol (INAPSINE) injection 2.5 mg (COMPLETED) 2.5 mg, Intravenous, ONCE, 1 dose, On Sat04/24/24 at 1100 1047 (Given - Provider: Christiano Avendano, CHERY) enoxaparin (LOVENOX) injection 40 mg 40 mg, Subcutaneous, EVERY 24 HOURS SCHEDULED (Daily), First dose on Sat04/24/24 at 1300, Until Discontinued 1300 (Not Given - Provider: Ann-Marie Quiroga RN - Reason: Other - see comment - Comment: refused pt with active nausea and emesis) 1147 (Not Given - Provider: Ann-Marie Quiroga RN - Reason: Patient/family refused) metoclopramide (REGLAN) injection 10 mg (COMPLETED) 10 mg, Intravenous, ONCE, 1 dose, On Sat04/24/24 at 1000 1006 (Given - Provider: Christiano Avendano RN) potassium phosphates 30 mmol in dextrose 5 % 250 mL IVPB (COMPLETED) 30 mmol, Intravenous, ONCE, 1 dose, On Sat04/24/24 at 1200, Administer over 6 Hours, Unless otherwise directed, for doses less than or equal to 21mol administer over 4 hours. For doses 22mmol ? 40mmol administer over 6 hours. Concentrations over 0.12 mmol/mL require administration via central line. 1154 (New Bag - Provider: Christiano Avendano RN)1754 (Stopped - Provider: Ann-Marie Quiroga RN - Comment: completed) Prochlorperazine Edisylate (COMPAZINE) injection 5 mg (COMPLETED) 5 mg, Intravenous, ONCE, 1 dose, On 04/25/24 at 0230 0305 (Given - Provid er: Marty العلي RN) sodium chloride 0.9 % 1,000 mL IV bolus (COMPLETED) Intravenous, ONCE, 1 dose, On Sat04/24/24 at 1000, Administer over 1 Hours 1005 (New Bag - Provider: Christiano Avendano RN)1405 (Stopped - Provider: Bud Gladamez RN) Continuous Medication Order 04/23/2024 04/24/2024 04/25/2024 lactated ringers infusion (CANCELED) at 125 mL/hr, Intravenous, CONTINUOUS, Starting on Sat04/24/24 at 1300, Until 04/25/24 at 1259 1453 (New Bag - Provider: Ann-Marie Quiroga RN) 1331 (Stopped - Provider: Ann-Marie Quiroga RN - Comment: completed) PRN Medication Order 04/23/2024 04/24/2024 04/25/2024 acetaminophen (TYLENOL) tablet 650 mg 650 mg, Oral, EVERY 4 HOURS PRN, Starting on Sat04/24/24 at 1235, Until 04/25/24 at 1810, Mild pain or more severe pain if patient requests, Maximum dose of acetaminophen is 4000 mg from all sources in 24 hours. calcium carbonate (TUMS) chewable tablet 1,000 mg 1,000 mg, Oral, EVERY 8 HOURS PRN, Starting on Sat04/24/24 at 1235, Until 04/25/24 at 1810, Heartburn, Indigestion magnesium hydroxide (MILK OF MAGNESIA) 400 MG/5ML suspension 30 mL 30 mL, Oral, DAILY PRN, Starting on Sat04/24/24 at 1235, Until 04/25/24 at 1810, Constipation - 3rd line, Magnesium hydroxide 400 mg/5 ml = 166.7 mg elemental magnesium/5ml. Hold for loose stools (loose, liquid, mucoid, soft, watery stool that takes the shape of the container) or greater than 2 moderate or larger stools in 24hrs melatonin tablet 6 mg 6 mg, Oral, NIGHTLY PRN, Starting on Sat04/24/24 at 1235, Until 04/25/24 at 1810, Other, Sleep metoclopramide (REGLAN) injection 10 mg 10 mg, Intravenous, EVERY 6 HOURS PRN, Starting on Sat04/24/24 at 1235, Until 04/25/24 at 1810, Nausea - 2nd line, Second Line Antiemetic Give if nausea/vomiting recurs after ondansetron. 1705 (Given - Provider: Ann-Marie Quiroga RN)2323 (Given - Provider: Marty العلي RN - Comment: per patient request) 0643 (Given - Provider: Marty العلي RN - Comment: per patient request) ondansetron (ZOFRAN) injection 4 mg(Linked Group 1) 4 mg, Intravenous, EVERY 6 HOURS PRN, Starting on Sat04/24/24 at 1235, Until 04/25/24 at 1810, 1. First Line Antiemetic. 2. Use Injection only if patient unable to tolerate oral medications., Nausea - 1st line 1402 (Given - Provider: Bud Galdamez RN)2243 (Given - Provider: Marty العلي RN - Comment: per patient request) 0516 (Given - Provider: Marty العلي RN - Comment: per patient request)1146 (Given - Provider: Ann-Marie Quiroga, RN) ondansetron (ZOFRAN-ODT) disintegrating tablet 4 mg(Linked Group 1) 4 mg, Oral, EVERY 6 HOURS PRN, Starting on Sat04/24/24 at 1235, Until 04/25/24 at 1810, Nausea - 1st line, 1. First Line Antiemetic. 2. Use PO form unless unable to tolerate PO medications, then use Injection 1402 (See Alternative - Provider: Bud Galdamez RN)2243 (See Alternative - Provider: Marty العلي RN) 0516 (See Alternative - Provider: Marty العلي RN)1146 (See Alternative - Provider: Ann-Marie Quiroga RN) polyethylene glycol (GLYCOLAX, MIRALAX) packet 17 g 17 g, Oral, 2 TIMES DAILY PRN, Starting on Sat04/24/24 at 1235, Until 04/25/24 at 1810, Constipation - 1st line, Dilute dose in 120 - 240 mL of beverage.Hold for loose stools (loose, liquid, mucoid, soft, watery stool that takes the shape of the container) or greater than 2 moderate or larger stools in 24hrs senna (SENOKOT) tablet 8.6 mg 8.6 mg (1 Tablet), Oral, 2 TIMES DAILY PRN, Starting on Sat04/24/24 at 1235, Until 04/25/24 at 1810, Constipation - 2nd line Linked Groups Order Group 1: ondansetron (ZOFRAN-ODT) disintegrating tablet 4 mgJump to med 4 mg, Oral, EVERY 6 HOURS PRN, Starting on Sat04/24/24 at 1235, Until 04/25/24 at 1810, Nausea - 1st line, 1. First Line Antiemetic. 2. Use PO form unless unable to tolerate PO medications, then use Injection Or ondansetron (ZOFRAN) injection 4 mgJump to med 4 mg, Intravenous, EVERY 6 HOURS PRN, Starting on Sat04/24/24 at 1235, Until 04/25/24 at 1810, 1. First Line Antiemetic. 2. Use Injection only if patient unable to tolerate oral medications., Nausea - 1st line documented in this encounter Care Teams Equipment Services Associate Relationship Specialty Start Date End Date Provider, [place] PCP - General 01/15/22 documented as of this encounter
--- OUTSIDE RECORDS SUMMARY | 2024-05-26 02:45 | XMS_ITS | Encounter Summary ---
Author Organization [facility] Care Team Providers Care Ship Boss Name Role Phone Provider, None Primary Care Provider Unavailabl e Encounter Details Date Type Department Care Team (Latest Contact Info) Description 02/15/2022 Travel Social History Tobacco Use Types Packs/Day [...] suspected to have Coronavirus/COVID-19? No / Unsure 02/15/2022 11:03 PM CDT documented as of this encounter Plan of Treatment Not on file documented as of this encounter Visit Diagnoses Not on filedocumented in this encounter Care Teams Ship Boss Relationship Specialty Start Date End Date Provider, None [place] PCP - General 01/15/22 documented as of this encounter
--- OUTSIDE RECORDS SUMMARY | 2024-05-26 02:45 | XMS_ITS | Encounter Summary ---
Author Organization [facility] Address [address] [place] [address] Phone Care Team Providers Care Rust Proofer Name Role Phone Provider, None Primary Care Provider Unavailabl e Reason for Visit * Reason Comments Vomiting Abdominal Pain Encounter Details Date Type Department Care Team ([facility] st Contact Info) Description 02/15/2022 11:24 PM CDT - 02/16/2022 2:56 AM CDT Emergency [facility] Emergency [address] [place] [address] Jeanette Moreland, [address] [place] [address] Abdominal pain Discharge Disposition: Discharged to home or Selfcare [...] Sign Reading Time Taken Comments Blood Pressure 141/83 02/16/2022 2:35 AM CDT Pulse 86 02/16/2022 2:35 AM CDT Temperature 36.9 ??C (98.4 ??F) 02/15/2022 11:06 PM C DT Respiratory Rate 24 02/15/2022 11:06 PM CDT Oxygen Saturation 99% 02/16/2022 2:35 AM CDT Inhaled Oxygen Concentration - - Weight 136.1 kg (300 lb) 02/15/2022 11:06 PM CDT Height 185.4 cm (6' 1 ) 02/15/2022 11:06 PM CDT Body Mass Index 39.58 02/15/2022 11:06 PM CDT documented in this encounter Discharge Instructions * Discharge Instructions* Jeanette Moreland, - 02/16/2022 2:[address] imaging does not identify any acute abnormalities to suggest the cause of your current symptoms. If you continue to have recurrent episodes of nausea/vomiting you may benefit from further evaluation by a GI specialist. You may contact the specialist listed above to schedule an appointment for further evaluation In the meantime continue taking all home medications as prescribed. Drink plenty of fluids to help decrease your risk of dehydration. Return to the ED with any new/concerning symptoms. The examination and treatment you have received in the Emergency Department has been given on an emergency basis only. Your diagnosis and treatment that you received in the ED today is preliminary. You should follow-upwith your doctor in 2-3 days or return to the Emergency Department if you develop new or worsening symptoms. Please see the discharge sheets about any specific follow-up instructions with physicians.Should your condition worsen or any new symptoms develop, or you do not recover as expected, immediately contact your doctor or the doctor you were given for follow-up care or return to the EmergencyDepartment. If you had x-ray studies performed today, the results given to you were preliminary, and the studies still require formal reading by an attending radiologist. We will contact you if your reading changes significantly. Your X- ray study may also contain findings that may not have been pertinent to your complaint, but will require follow-up by your primary care physician or specialist physician. Youshould follow up primary care physician or specialist physician with your regarding all X-ray studyfindings. If you had medication prescribed, you should take the medication as prescribed until it is finished. Please note any further discharge instructions in the attached pages.Certain medications such as pain medications, muscle relaxants, anxiety agents, antidepressants, blood pressure medications can affect your ability to drive, operate machinery, or to make important decisions. It is important thatyou do not drive, operate machinery, or make important decisions while on these medications. Pleasealso check with the pharmacist who will also give you important precautions with your medications. Again, it is very important that you return immediately if your condition worsens, any new symptomsdevelop, or you do not recover as expected. documented in this encounter Medications at Time of Discharge metoclopramide (REGLAN) 5 MG Tablet Take 1 Tablet by mouth 4 times daily as needed for Nausea - 1st line. 10 Tablet 02/16/2022 04/25/2024 ondansetron (Zofran ODT) 4 MG TABLET DISPERSIBLE Take 1 Tablet by mouth every 8 hours as needed for Nausea - 1st line for up to 12 doses. 12 Tablet 01/15/2022 04/25/2024 documented as of this encounter ED Notes * Jeanette Moreland DO - 02/16/2022 12:37 AM CDT Chief Complaint Patient presents with ??? Vomiting ??? Abdominal Pain 21-year-old male presents with complaints of acute onset of severe abdominal pain. Symptoms began around 7:00 p.m. this evening if been ongoing since that time. He reports generalized abdominal pain,nausea/vomiting. He has had intermittent episodes of similar over the last few months. Denies any fevers does report chills. Girlfriend at bedside states that he came in to town to visit her for the weekend and symptoms started. Has not taken anything for symptoms at this time. No current facility-administered medications for this encounter. Current Outpatient Medications Medication Sig Dispense Refill ??? metoclopramide (REGLAN) 5 MG Tablet Take 1 Tablet by mouth 4 times daily as needed for Nausea -1st line. 10 Tablet 0 ??? ondansetron (Zofran ODT) 4 MG TABLET DISPERSIBLE Take 1 Tablet by mouth every 8 hours as neededfor Nausea - 1st line for up to 12 doses. 12 Tablet 0 No Known Allergies No past medical history on file. No past surgical history on file. Social History Socioeconomic History ??? Marital status: Single Spouse name: Not on file ??? Number of children: Not on file ??? Years of education: Not on file ??? Highest education level: Not on file Occupational History ??? Not on file Tobacco Use ??? Smoking status: Not on file ??? Smokeless tobacco: Not on file Substance and Sexual Activity ??? Alcohol use: Not on file ??? Drug use: Not on file ??? Sexual activity: Not on file Other Topics Concern ??? Not on file Social History Narrative ??? Not on file BP 136/77 Pulse 76 Temp 98.4 ??F (36.9 ??C) (Oral) Resp 24 Ht 6' 1 (1.854 m) Wt 300 lb (136.1 kg) SpO2 100% BMI 39.58 kg/m?? Review of Systems Constitutional: Positive for chills and diaphoresis. Negative for fever. HENT: Negative for congestion, rhinorrhea and sore throat. Respiratory: Negative for cough, shortness of breath and wheezing. Cardiovascular: Negative for chest pain. Gastrointestinal: Positive for abdominal pain, nausea and vomiting. Genitourinary: Negative for difficulty urinating, dysuria, flank pain and frequency. Musculoskeletal: Negative for arthralgias and myalgias. Skin: Negative for pallor and rash. Allergic/Immunologic: Negative for immunocompromised state. Neurological: Negative for dizziness, weakness, light-headedness and headaches. Hematological: Does not bruise/bleed easily. Physical Exam Vitals reviewed. Constitutional: General: He is not in acute distress. Appearance: He is diaphoretic. He is not ill-appearing or toxic-appearing. HENT: Head: Normocephalic and atraumatic. Cardiovascular: Rate and Rhythm: Normal rate and regular rhythm. Pulmonary: Effort: Pulmonary effort is normal. Breath sounds: Normal breath sounds. No wheezing, rhonchi or rales. Abdominal: General: Bowel sounds are normal. Palpations: Abdomen is soft. Tenderness: There is generalized abdominal tenderness and tenderness in the epigastric area. There is no guarding or rebound. Skin: General: Skin is warm. Coloration: Skin is not pale. Neurological: General: No focal deficit present. Mental Status: He is alert and oriented to person, place, and time. Procedures Imaging Results CT ABDOMEN PELVIS W/ CONTRAST (Final result) Result time 02/16/22 01:14:11 Final result by Danny Benitez MD (02/16/22 01:14:11) Impression: IMPRESSION: There is no definitive abnormality evident. There is limited image resolution. Consider further evaluation as clinically directed. Automatic exposure control was used as a dose lowering technique. Radiation Dose: CTDI is 25.11 mGy. DLP is 1509.34 mGy-cm. Contrast Type: iso 300. Contrast Volume: 100 REPORT SIGNATURE ON FILE 02/15/2022 (23:14 [place] Time ) Signed by: Danny Benitez M.D. Narrative: Clinical History/Indication for Exam: vomiting and epigastric pain worsening tonight CT ABDOMEN AND PELVIS WITH INTRAVENOUS CONTRAST INDICATION: vomiting and epigastric pain worsening tonight TECHNIQUE: Axial computed tomography images of the abdomen and pelvis with intravenous contrast. Sagittal and coronal reformatted images were created and reviewed. This CT exam was performed using one or more of the following dose reduction techniques: automated exposure control, adjustment of the mA and/or kV according to patient size, and/or use of iterative reconstruction technique. COMPARISON: No relevant prior studies available. FINDINGS: Artifacts: Multiple images are graded by motion artifact. Lung bases: Unremarkable. No mass. No consolidation. ABDOMEN: Liver: Unremarkable. No mass. Gallbladder and bile ducts: Unremarkable. No calcified stones. No ductal dilation. Pancreas: Unremarkable. No mass. No ductal dilation. Spleen: Unremarkable. No splenomegaly. Adrenals: Unremarkable. No mass. Kidneys and ureters: Unremarkable. No solid mass. No hydronephrosis. Stomach and bowel: Unremarkable. No obstruction. No mucosal thickening. PELVIS: Appendix: No findings to suggest acute appendicitis. Bladder: The urinary bladder is contracted limiting its evaluation. Reproductive: Unremarkable as visualized. ABDOMEN and PELVIS: Intraperitoneal space: Unremarkable. No free air. No significant fluid collection. Bones/joints: There are degenerative disc changes with loss of disc space height, subchondral sclerosis, osteophyte formation and facet arthrosis. There is multilevel neural foraminal narrowing, greatest in the lower lumbar spine. No acute fracture. No dislocation. Soft tissues: Unremarkable. Vasculature: Unremarkable. No abdominal aortic aneurysm. Lymph nodes: Unremarkable. No enlarged lymph nodes. Labs Reviewed URINALYSIS REFLEX IF INDICATED BY ABNORMAL RESULTS - Abnormal; Notable for the following components: Result Value URINE KETONES 3+ (*) All other components within normal limits CMP (COMPREHENSIVE METABOLIC PANEL) - Abnormal; Notable for the following components: CO2, VENOUS 19 (*) GLUCOSE 136 (*) All other components within normal limits UR DRUG SCREEN W/O CONFIRMATION - Abnormal; Notable for the following components: UR CANNABINOID DETECTED (*) All other components within normal limits CBC WITH AUTO DIFFERENTIAL - Abnormal; Notable for the following components: WBC 15.43 (*) NEUTROPHILS 81.3 (*) LYMPHOCYTES 13.5 (*) ABSOLUTE NEUTROPHILS 12.55 (*) All other components within normal limits LIPASE - Normal COMPLETE BLOOD COUNT (CBC) WITH DIFF Narrative: The following orders were created for panel order Complete Blood Count (CBC) WITH Diff. Procedure Abnormality Status --------- ------ CBC with Auto Differential[[id number]] Abnormal Final result Please view results for these tests on the individual orders. DARK PURPLE TOP TUBE GOLD TOP TUBE MDM Coding Clinical Impression 1. Nausea & vomiting 2. Abdominal pain 1. Abd pain -n/v-acute onset around 1900 tonight -afebrile, diaphoretic, obese -abd soft, diffusely ttp -Pt requesting GI cocktail as these have helped his symptoms previously Labs reviewed, mild leukocytosis which is likely reactive from vomiting. Pt continued to be symptomatic after benadryl/reglan. Pt is +for marijuana although stated previously doesn't use. Droperidol ordered. On reassessment patient has not had any recurrent episodes of emesis since arrival. He states he is not really feeling any better however. I discussed results of patient's labs, CT imaging showing no acute findings or intra- abdominal process took cause patient's current symptoms. Discussed with patient anticipated plan for discharge home but wanted make sure that he is able to tolerate p.o. intake. Patient verbalized understanding agreement with plan. Recommended that he callto schedule follow-up with GI if he continues to have recurrent episodes as he may need to have further workup/treatment. * Andrea Beckett RN - 02/16/2022 12:15 AM CDT Patient presents to ED c/o generalized abdominal that that began this evening around 1900, states he has been having ongoing abd pain/vomiting x several months. C/o nausea. Patient moaning and diaphoretic on assessment. [address] until after medication [address] 0030 Patient continues to c/o nausea, abdominal pain, requesting GI cocktail. 0140 Patient stood at bedside to provide urine sample, 400 ml urine output. Patient continues to c/o nausea and abdominal pain, orders placed 0210 This RN to reassess patient, patient has had no additional episodes of vomiting. patient sitting in bed with eyes closed. Provided with water for PO challenge, patient shakes head no at water 0230 Patient has had no additional episodes of vomiting 0245 Patient given discharge instructions which included prescriptions x 1. Verbalized understanding using teach back method. The patient was wheeled from ED with home care instructions in hand. No signs of distress noted. * Andrea Beckett RN - 02/15/2022 11:24 PM CDT Bed: ED- Expected date: Expected time: Means of arrival: Car Comments: * Alivia Vieira RN - 02/15/2022 11:05 PM CDT Pt to ED c/o vomiting and abdominal pain that has been ongoing for several months. Pt support person states the symptoms became bad tonight around 1900 documented in this encounter Plan of Treatment Not on file documented as of this encounter Procedures Procedure Name Priority Date/Time Associated Diagnosis Comments URINALYSIS REFLEX IF INDICATED BY ABNORMAL RESULTS STAT 02/16/2022 1:47 AM CDT UR DRUG SCREEN W/O CONFIRMATION STAT 02/16/2022 1:[address] ABDOMEN PELVIS W/ CONTRAST STAT 02/16/2022 12:24 AM CDT DARK PURPLE TOP TUBE STAT 02/15/2022 11:31 PM CDT GOLD TOP TUBE STAT 02/15/2022 11:31 PM CDT CBC WITH AUTO DIFFERENTIAL STAT 02/15/2022 11:25 PM CDT LIPASE STAT 02/15/2022 11:25 PM CDT CMP (COMPREHENSIVE METABOLIC PANEL) STAT 02/15/2022 11:25 PM CDT COMPLETE BLOOD COUNT (CBC) WITH DIFF STAT 02/15/2022 11:25 PM CDT documented in this encounter Results * (ABNORMAL) Ur Drug Screen w/o Confirmation (02/16/2022 1:47 AM CDT) UR AMPHETAMINE NON DETECTED NON DETECTED 02/16/2022 2:02 AM CDT [facility] Comment: FOR MEDICAL USE ONLY. CUTOFF CONCENTRATION FOR DETECTED RESULT: AMPHETAMINE: ??500 NG/ML UR BARBITURATE NON DETECTED NON DETECTED 02/16/2022 2:02 AM CDT [facility] Comment: FOR MEDICAL USE ONLY. CUTOFF CONCENTRATION FOR DETECTED RESULT: BARBITUATES: ? 200 NG/ML UR BENZODIAZEPINES NON DETECTED NON DETECTED 02/16/2022 2:02 AM CDT [facility] Comment: FOR MEDICAL USE ONLY. CUTOFF CONCENTRATION FOR DETECTED RESULT: BENZODIAZAPINE: ??200 NG/ML UR COCAINE METABOLITE NON DETECTED NON DETECTED 02/16/2022 2:02 AM CDT [facility] Comment: FOR MEDICAL USE ONLY. CUTOFF CONCENTRATION FOR DETECTED RESULT: COCAINE: ??150 NG/ML UR OPIATES NON DETECTED NON DETECTED 02/16/2022 2:02 AM CDT [facility] Comment: FOR MEDICAL USE ONLY. CUTOFF CONCENTRATION FOR DETECTED RESULT: OPIATES: ? 300 NG/ML UR PHENCYCLIDINE NON DETECTED NON DETECTED 02/16/2022 2:02 AM CDT [facility] Comment: FOR MEDICAL USE ONLY. CUTOFF CONCENTRATION FOR DETECTED RESULT: PCP: ? 25 NG/ML UR CANNABINOID DETECTED(A) NON DETECTED 02/16/2022 2:02 AM CDT [facility] Comment: FOR MEDICAL USE ONLY. CUTOFF CONCENTRATION FOR DETECTED RESULT: THC (MARIJUANA): 50 NG/ML Urine Non-Phlebotomy Collection / Unknown 02/16/2022 1:47 AM CDT 02/16/2022 1:50 AM CDT Jeanette Moreland DO URINE ORDERABLES Final Result Performing Organization Address [facility]/State/[facility] Co de Phone Number [address] [address], * (ABNORMAL) URINALYSIS REFLEX IF INDICATED BY ABNORMAL RESULTS (02/16/2022 1:47 AM CDT) SPECIFIC GRAVITY 1.015 1.003 - 1.030 02/16/2022 1:54 AM CDT [facility] URINE PH 6.0 5.0 - 9.0 02/16/2022 1:54 AM CDT [facility] WBC ESTERASE Negative Negative 02/16/2022 1:54 AM CDT [facility] NITRITE Negative Negative 02/16/2022 1:54 AM CDT [facility] PROTEIN, RANDOM URINE Negative Negative 02/16/2022 1:54 AM CDT [facility] URINE GLUCOSE, QUAL Negative Negative 02/16/2022 1:54 AM CDT [facility] URINE KETONES 3+(A) Negative 02/16/2022 1:54 AM CDT [facility] UROBILINOGEN 0.2 0.2 , 1.0 , Normal mg/dL 02/16/2022 1:54 AM CDT [facility] URINE BLOOD Negative Negative duc/ul 02/16/2022 1:54 AM CDT [facility] URINALYSIS COLOR Yellow 02/17/20 1:54 AM CDT [facility] URINALYSIS CLARITY Clear 02/16/2022 1:54 AM CDT [facility] Urine URINE SPECIMEN / Unknown Non-Phlebotomy Collection / Unknown 02/16/2022 1:47 AM CDT 02/16/2022 1:50 AM CDT us Susan Pike MD URINE ORDERABLES Final Result Performing Organization Address City/State/[facility] Co de Phone Number [facility] [address] [place] [address], * CT ABDOMEN PELVIS W/ CONTRAST (02/16/2022 12:24 AM CDT) Anatomical Region Laterality Modality Abdomen N/A Computed Tomogra phy 02/16/2022 12:1 2 AM CDT Impressions 02/15/2022 11:14 PM CDT IMPRESSION: There is no definitive abnormality evident. ?? There is limited image resolution. ??Consider further evaluation as clinically directed. Automatic exposure control was used as a dose lowering technique. Radiation Dose: CTDI is 25.11 mGy. DLP is 1509.34 mGy-cm. Contrast Type: iso 300. Contrast Volume: 100 REPORT SIGNATURE ON FILE ??02/15/2022 (23:14 [place] Time ) Signed by: Danny Benitez M.D. Narrative 02/15/2022 11:14 PM CDT Clinical History/Indication for Exam: vomiting and epigastric pain worsening tonight CT ABDOMEN AND PELVIS WITH INTRAVENOUS CONTRAST INDICATION: ??vomiting and epigastric pain worsening tonight TECHNIQUE: ??Axial computed tomography images of the abdomen and pelvis with intravenous contrast. ??Sagittal and coronal reformatted images were created and reviewed. ??This CT exam was performed using one or more of the following dose reduction techniques: ??automated exposure control, adjustment of the mA and/or kV according to patient size, and/or use of iterative reconstruction technique. COMPARISON: ??No relevant prior studies available. FINDINGS: Artifacts: ??Multiple images are graded by motion artifact. Lung bases: ??Unremarkable. ??No mass. ??No consolidation. ABDOMEN: Liver: ??Unremarkable. ??No mass. Gallbladder and bile ducts: ??Unremarkable. ??No calcified stones. ??No ductal dilation. Pancreas: ??Unremarkable. ??No mass. ??No ductal dilation. Spleen: ??Unremarkable. ??No splenomegaly. Adrenals: ??Unremarkable. ??No mass. Kidneys and ureters: ??Unremarkable. ??No solid mass. ??No hydronephrosis. Stomach and bowel: ??Unremarkable. ??No obstruction. ??No mucosal thickening. PELVIS: Appendix: ??No findings to suggest acute appendicitis. Bladder: ??The urinary bladder is contracted limiting its evaluation. Reproductive: ??Unremarkable as visualized. ABDOMEN and PELVIS: Intraperitoneal space: ??Unremarkable. ??No free air. ??No significant fluid collection. Bones/joints: ??There are degenerative disc changes with loss of disc space height, subchondral sclerosis, osteophyte formation and facet arthrosis. ??There is multilevel neural foraminal narrowing, greatest in the lower lumbar spine. ??No acute fracture. ??No dislocation. Soft tissues: ??Unremarkable. Vasculature: ??Unremarkable. ??No abdominal aortic aneurysm. Lymph nodes: ??Unremarkable. ??No enlarged lymph nodes. Procedure Note Danny Benitez MD - 02/16/2022 Clinical History/Indication for Exam: vomiting and epigastric pain worsening tonight CT ABDOMEN AND PELVIS WITH INTRAVENOUS CONTRAST INDICATION: vomiting and epigastric pain worsening tonight TECHNIQUE: Axial computed tomography images of the abdomen and pelvis with intravenous contrast. Sagittal and coronal reformatted images were created and reviewed. This CT exam was performed using one or more of the following dose reduction techniques: automated exposure control, adjustment of the mA and/or kV according to patient size, and/or use of iterative reconstruction technique. COMPARISON: No relevant prior studies available. FINDINGS: Artifacts: Multiple images are graded by motion artifact. Lung bases: Unremarkable. No mass. No consolidation. ABDOMEN: Liver: Unremarkable. No mass. Gallbladder and bile ducts: Unremarkable. No calcified stones. No ductal dilation. Pancreas: Unremarkable. No mass. No ductal dilation. Spleen: Unremarkable. No splenomegaly. Adrenals: Unremarkable. No mass. Kidneys and ureters: Unremarkable. No solid mass. No hydronephrosis. Stomach and bowel: Unremarkable. No obstruction. No mucosal thickening. PELVIS: Appendix: No findings to suggest acute appendicitis. Bladder: The urinary bladder is contracted limiting its evaluation. Reproductive: Unremarkable as visualized. ABDOMEN and PELVIS: Intraperitoneal space: Unremarkable. No free air. No significant fluid collection. Bones/joints: There are degenerative disc changes with loss of disc space height, subchondral sclerosis, osteophyte formation and facet arthrosis. There is multilevel neural foraminal narrowing, greatest in the lower lumbar spine. No acute fracture. No dislocation. Soft tissues: Unremarkable. Vasculature: Unremarkable. No abdominal aortic aneurysm. Lymph nodes: Unremarkable. No enlarged lymph nodes. IMPRESSION: There is no definitive abnormality evident. There is limited image resolution. Consider further evaluation as clinically directed. Automatic exposure control was used as a dose lowering technique. Radiation Dose: CTDI is 25.11 mGy. DLP is 1509.34 mGy-cm. Contrast Type: iso 300. Contrast Volume: 100 REPORT SIGNATURE ON FILE 02/15/2022 (23:14 [place] Time ) Signed by: Danny Benitez M.D. us Jeanette Moreland DO IMG CT ORDERABLES Faith l Result * Gold Top Tube (02/15/2022 11:31 PM CDT) Blood No Phlebotomy Charged / Unknown 02/15/2022 11:31 PM CDT 02/15/2022 11:31 PM CDT us Jeanette Moreland DO CHEMISTRY ORDERABLES F inal Result [facility] [address] [place] [address], * DARK PURPLE TOP TUBE (02/15/2022 11:31 PM CDT) Blood Venipuncture / Unknown 02/15/2022 11:31 PM CDT 02/15/2022 11:31 PM CDT us Jeanette Moreland DO CHEMISTRY ORDERABLES F inal Result [facility] [address] [place] [address], [place] [phone] * (ABNORMAL) CBC with Auto Differential (02/15/2022 11:25 PM CDT) WBC 15.43(H) 4.00 - 12.00 10(3)/mcL 02/15/2022 11:38 PM CDT [facility] RBC 5.80 4.40 - 5.80 10(6)/[facility] 02/15/2022 11:38 PM CDT [facility] HEMOGLOBIN (HGB) 16.2 13.0 - 16.5 g/dL 02/15/2022 11:38 PM CDT [facility] HEMATOCRIT (HCT) 47.7 38.0 - 50.0 % 02/15/2022 11:38 PM CDT [facility] MCV 82.2 82.0 - 96.0 fL 02/15/2022 11:38 PM CDT [facility] MCH 27.9 26.0 - 32.0 pg 02/15/2022 11:38 PM CDT [facility] MCHC 34.0 31.0 - 36.0 g/dL 02/15/2022 11:38 PM CDT [facility] PLATELET COUNT 309 140 - 440 10(3)/mcL 02/15/2022 11:38 PM CDT [facility] RDW 12.7 11.8 - 15.5 % 02/15/2022 11:38 PM CDT [facility] MPV 11.2 8.0 - 12.6 fL 02/15/2022 11:38 PM CDT [facility] NEUTROPHILS 81.3(H) 40.0 - 68.0 % 02/15/2022 11:38 PM CDT [facility] LYMPHOCYTES 13.5(L) 19.0 - 49.0 % 02/15/2022 11:38 PM CDT [facility] MONOCYTES 4.3 3.0 - 13.0 % 02/15/2022 11:38 PM CDT [facility] EOSINOPHILS 0.5 0.0 - 8.0 % 02/15/2022 11:38 PM CDT [facility] BASOPHILS 0.4 0.0 - 1.0 % 02/15/2022 11:38 PM CDT [facility] ABSOLUTE NEUTROPHILS 12.55(H) 1.40 - 5.30 10(3)/[facility] 02/15/2022 11:38 PM CDT [facility] ABSOLUTE LYMPHOCYTES 2.08 0.90 - 3.30 10(3)/[facility] 02/15/2022 11:38 PM CDT [facility] ABSOLUTE MONOCYTES 0.67 0.10 - 0.90 10(3)/[facility] 02/15/2022 11:38 PM CDT [facility] ABSOLUTE EOSINOPHIL 0.07 0.00 - 0.50 10(3)/[facility] 02/15/2022 11:38 PM CDT [facility] ABSOLUTE BASOPHILS 0.06 0.00 - 0.10 10(3)/[facility] 02/15/2022 11:38 PM CDT [facility] NRBC PER 100 WBC 0 02/16/20 11:38 PM CDT [facility] Blood Venous Catheter (IV) / Unknown 02/15/2022 11:25 PM CDT 02/15/2022 11:30 PM CDT us Susan Pike MD HEMATOLOGY ORDERABLES Final Res ult [facility] [address] [place] [address], * Lipase (02/15/2022 11:25 PM CDT) LIPASE 21 8 - 78 U/L 02/15/2022 11:58 PM CDT [facility] Blood Venous Catheter (IV) / Unknown 02/15/2022 11:25 PM CDT 02/15/2022 11:30 PM CDT us Susan Pike MD CHEMISTRY ORDERABLES Final Resu lt [facility] [address] [place] [address], [place] [phone] * (ABNORMAL) CMP (Comprehensive Metabolic Panel) (02/15/2022 11:25 PM CDT) SODIUM 141 136 - 145 mmol/L 02/15/2022 11:58 PM CDT [facility] POTASSIUM 3.8 3.5 - 5.1 mmol/L 02/15/2022 11:58 PM CDT [facility] CHLORIDE 106 98 - 107 mmol/L 02/15/2022 11:58 PM CDT [facility] CO2, VENOUS 19(L) 22 - 30 mmol/L 02/15/2022 11:58 PM CDT [facility] ANION GAP 16.0 <18.0 mmol/L 02/15/2022 11:58 PM CDT [facility] GLUCOSE 136(H) 70 - 99 mg/dL 02/15/2022 11:58 PM CDT [facility] BUN 17 9 - 21 mg/dL 02/15/2022 11:58 PM CDT [facility] CREATININE, BLOOD 1.08 0.70 - 1.30 mg/dL 02/15/2022 11:58 PM CDT [facility] BUN/CREATININE RATIO 16 12 - 20 ratio 02/15/2022 11:58 PM CDT [facility] TOTAL PROTEIN 7.7 6.3 - 8.2 g/dL 02/15/2022 11:58 PM CDT [facility] ALBUMIN 4.4 3.5 - 5.0 g/dL 02/15/2022 11:58 PM CDT [facility] A/G RATIO 1.3 1.0 - 2.2 02/15/2022 11:58 PM CDT [facility] CALCIUM 10.0 8.7 - 10.5 mg/dL 02/15/2022 11:58 PM CDT [facility] T BILI 1.2 0.2 - 1.2 mg/dL 02/15/2022 11:58 PM CDT [facility] SGOT (AST) 22 5 - 34 U/L 02/15/2022 11:58 PM CDT [facility] SGPT (ALT) 32 0 - 55 U/L 02/15/2022 11:58 PM CDT [facility] ALKALINE PHOSPHATASE 86 40 - 150 U/L 02/15/2022 11:58 PM CDT [facility] GFR, ESTIMATED >60 >=60 02/15/2022 11:58 PM CDT [facility] Comment: Creatinine Clearance is the preferred criteria for selecting drug dose adjustments in renally impaired patients. ??The GFR is provided as additional pertinent clinical information. GFR is reported in mL/min/1.73 sq m. Calculation based on the Chronic Kidney Disease Epidemiology Collaboration (CKD- EPI) equation refit without adjustment for race. GFR, EST. >60 >=60 022 11:58 PM CDT [facility] GFR, EST. NONAFRICAN >60 >=60 02/15/2022 11:58 PM CDT [facility] Blood Venous Catheter (IV) / Unknown 02/15/2022 11:25 PM CDT 02/15/2022 11:30 PM CDT us Susan Pike MD CHEMISTRY ORDERABLES Final Resu lt [facility] [address] [place] [address], [place] [phone] documented in this encounter Visit Diagnoses Diagnosis Nausea & vomiting- Primary Nausea with vomiting Abdominal pain Abdominal pain, unspecified site Abdominal pain, generalized Abdominal pain, epigastric Nausea and vomiting, unspecified vomiting type Generalized hyperhidrosis documented in this encounter Administered Medications Inactive Administered Medications - up to 3 most recent administrations Medication Order MAR Action Action Date Dose Rate Site diphenhydrAMINE (BENADRYL) injection 25 mg 25 mg, Intravenous, ONCE, 1 dose, On Sat02/16/22 at 0000 Given 02/15/2022 11:53 PM CDT 25 mg droperidol (INAPSINE) injection 2.5 mg 2.5 mg, Intravenous, ONCE, 1 dose, On Sat02/16/22 at 0200, Given 02/16/2022 1:42 AM CDT 2.5 mg famotidine (PF) (PEPCID) injection 20 mg 20 mg, Intravenous, ONCE, 1 dose, On Sat02/16/22 at 0100, Indications: Symptomatic Gastroesophageal Reflux DiseaseIndications:Symptomatic Gastroesophageal Reflux Disease Given 02/16/2022 12:42 AM CDT 20 mg GI Cocktail 30 mL, Oral, ONCE, 1 dose, On Sat02/16/22 at 0100 Given 02/16/2022 12:42 AM CDT 30 mL Iopamidol (ISOVUE-300) 61 % injection 100 mL 100 mL, Intravenous, ONCE, 1 dose, On Sat02/16/22 at 0100 Given 02/16/2022 12:18 AM CDT 100 mL metoclopramide (REGLAN) injection 10 mg 10 mg, Intravenous, ONCE, 1 dose, On Sat02/16/22 at 0000 Given 02/15/2022 11:52 PM CDT 10 mg ondansetron (ZOFRAN-ODT) disintegrating tablet 4 mg 4 mg, Oral, ONCE, 1 dose, On Sat02/15/22 at 2330, *Contact Provider for order if patient is in first trimester of .Indications:Nausea and Vomiting Given 02/15/2022 11:20 PM CDT 4 mg ONDANSETRON 4 MG PO TAB-DISPERSE 1 dose, Starting on Sat02/15/22 at 2312, Until Tania 02/15/22 at 2320, Created by kirill hawkins sodium chloride 0.9 % 1,000 mL IV bolus Intravenous, ONCE, 1 dose, On Sat02/16/22 at 0000 New Bag 02/15/2022 11:52 PM CDT sodium chloride 0.9 % 1,000 mL IV bolus Intravenous, ONCE, 1 dose, On Sat02/16/22 at 0130 New Bag 02/16/2022 1:06 AM CDT documented in this encounter Active and Recently Administered Medications Times are shown in CDT. Scheduled Medication Order 02/14/2022 02/15/2022 02/16/2022 diphenhydrAMINE (BENADRYL) injection 25 mg (COMPLETED) 25 mg, Intravenous, ONCE, 1 dose, On Sat02/16/22 at 0000 2353 (Given - Provider: Andrea Beckett RN) droperidol (INAPSINE) injection 2.5 mg (COMPLETED) 2.5 mg, Intravenous, ONCE, 1 dose, On Sat02/16/22 at 0200, 0142 (Given - Provider: Andrea Beckett, CHERY) famotidine (PF) (PEPCID) injection 20 mg (COMPLETED) 20 mg, Intravenous, ONCE, 1 dose, On Sat02/16/22 at 0100, Indications: Symptomatic Gastroesophageal Reflux Disease 0042 (Given - Provider: Andrea Beckett RN) GI Cocktail (COMPLETED) 30 mL, Oral, ONCE, 1 dose, On Sat02/16/22 at 0100 0042 (Given - Provider: Andrea Beckett RN) Iopamidol (ISOVUE-300) 61 % injection 100 mL (COMPLETED) 100 mL, Intravenous, ONCE, 1 dose, On Sat02/16/22 at 0100 0018 (Given - Provider: Serena Mccabe, RTR) metoclopramide (REGLAN) injection 10 mg (COMPLETED) 10 mg, Intravenous, ONCE, 1 dose, On Sat02/16/22 at 0000 2352 (Given - Provider: Andrea Beckett RN) ondansetron (ZOFRAN-ODT) disintegrating tablet 4 mg (COMPLETED) 4 mg, Oral, ONCE, 1 dose, On Tania 02/15/22 at 2330, *Contact Provider for order if patient is in first trimester of . 2320 (Given - Provider: Alivia Vieira RN) sodium chloride 0.9 % 1,000 mL IV bolus (COMPLETED) Intravenous, ONCE, 1 dose, On Sat02/16/22 at 0000 2352 (New Bag - Provider: Andrea Beckett RN) 0101 (Stopped - Provider: Andrea Beckett RN) sodium chloride 0.9 % 1,000 mL IV bolus (COMPLETED) Intravenous, ONCE, 1 dose, On Sat02/16/22 at 0130 0106 (New Bag - Provider: Andrea Bekcett, CHERY)0137 (Stopped - Provider: Andrea Beckett, CHERY) documented in this encounter Care Teams Rust Proofer Relationship Specialty Start Date End Date Provider, None [place] PCP - General 01/15/22 documented as of this encounter
--- OUTSIDE RECORDS SUMMARY | 2024-05-26 02:45 | XMS_ITS | Encounter Summary ---
Author Organization [employer] Address [address] [place] [address] Care Team Providers Care Lcac Operator Name Role Phone Unavailable Primary Care Provider [...]
--- OUTSIDE RECORDS SUMMARY | 2024-05-26 02:45 | XMS_ITS | Clinical Summary ---
Author Organization [facility] Address [address] [place] [address] Phone Care Team Providers Care Court Assistant Name Role Phone Provider, None Primary Care Provider Unavailabl e Allergies No known active allergies Medications ondansetron (ZOFRAN-ODT) 4 MG TABLET DISPERSIBLE Take 1 Tablet by mouth every 6 hours as needed for Nausea - 1st line for up to 90 doses. 90 Tablet 04/25/2024 Active metoclopramide (REGLAN) 5 MG Tablet Take 1 Tablet by mouth 4 times daily (before meals and nightly) for 90 days. 120 Tablet 2 04/25/2024 Active Active Problems Problem Noted Date Diagnosed Date Cannabinoid hyperemesis syndrome 04/24/2024 Encounters Date Type Department Care Team Description 04/27/2024 [facility] [address] [place] [phone] Provider, None New Patient 04/24/2024 9:24 AM CUT IN WORKER - 04/25/2024 4:10 PM [facility] [address] [place] [address] Indra Nair MD Sagar, Fnu, MD Cannabinoid hyperemesis syndrome Discharge Disposition: Discharged to home or Selfcare 04/24/2024 Travel from Last 3 Months Social History Tobacco Use Types Packs/Day Years Used Date Smoking Tobacco: Never Assessed [facility] Utilities Answer Date Recorded In the past 12 months has [facility] SSN Funding, gas, oil, or water company threatened to [...] any time in the past 12 m [facility], were you homeless or living in a retirement (including now)? No 04/24/2024 Sex and Gender Information Value Date Recorded Sex Assigned at Not on file Legal Sex Male 5:01 AM CDT Gender Identity Not on file Sexual Orientation Not on file Last Filed Vital Signs Vital Sign Reading Time Taken Comments Blood Pressure 126/74 04/25/2024 5:20 AM CUT IN WORKER Pulse 72 04/25/2024 5:20 AM CUT IN WORKER Temperature 36.8 ??C (98.3 ??F) 04/25/2024 5:20 AM CS T Respiratory Rate 18 04/25/2024 5:20 AM CUT IN WORKER Oxygen Saturation 99% 04/25/2024 5:20 AM CUT IN WORKER Inhaled Oxygen Concentration - - Weight 129.3 kg (285 lb) 04/24/2024 9:15 AM CUT IN WORKER Height 182.9 cm (6') 04/24/2024 9:15 AM CUT IN WORKER Body Mass Index 38.65 04/24/2024 9:15 AM CUT IN WORKER Plan of Treatment Health Maintenance Due Date Last Done Comments Hepatitis C Virus (HCV) Screening 1998 TdaP Immunization 1998 Hepatitis B Immunization (3 of 3 - 3-dose series) 06/12/1999 04/17/1999, 1998 Human Papillomavirus (HPV) Immunization (1 - Male 3-dose series) 2013 Influenza Immunization (#1) 2024 SARS-COV-2 Immunization (1 - 2023-25 season) 2024 Respiratory Syncytial Virus (RSV) Immunization (Adult) (1 - 1-dose 75+ series) 2073 DTaP/Tdap/Td Immunization Discontinued 2003, 01/15/2000, 04/17/1999, Additional history exists Meningococcal Immunization (ACWY) Aged Out No longer eligible based on patient's age to complete this topic Pneumococcal Immunization Combined Aged Out No longer eligible based on patient's age to complete this topic Rotavirus Immunization Aged Out No lo nger eligible based on patient's age to complete this topic Procedures Procedure Name Priority Date/Time Associated Diagnosis Comments CBC WITH AUTO DIFFERENTIAL Routine 04/25/2024 1:00 PM CUT IN WORKER CMP (COMPREHENSIVE METABOLIC PANEL) Routine 04/25/2024 1:00 PM CUT IN WORKER COMPLETE BLOOD COUNT (CBC) WITH DIFF Routine 04/25/2024 1:00 PM CUT IN WORKER PHOSPHORUS (PO4) Routine 04/25/2024 1:00 PM CUT IN WORKER EKG 12 LEAD STAT 04/25/2024 1:40 AM CUT IN WORKER EKG SCAN 04/25/2024 12:00 AM CUT IN WORKER UR DRUG SCREEN W/O CONFIRMATION STAT 04/24/2024 3:43 PM CUT IN WORKER CBC WITH AUTO DIFFERENTIAL STAT 04/24/2024 10:11 AM CUT IN WORKER PHOSPHORUS (PO4) STAT 04/24/2024 10:1 1 AM CUT IN WORKER MAGNESIUM (MG) STAT 04/24/2024 10:11 AM CUT IN WORKER COMPLETE BLOOD COUNT (CBC) WITH DIFF STAT 04/24/2024 10:11 AM CUT IN WORKER CMP (COMPREHENSIVE METABOLIC PANEL) STAT 04/24/2024 10:11 AM CUT IN WORKER from Last 3 Months Results * (ABNORMAL) CBC with Auto Differential (04/25/2024 1:00 PM CUT IN WORKER) Only the most recent of2 resultswithin the time period is included. WBC 15.59(H) 4.00 - 12.00 10(3)/mcL 04/25/2024 1:18 PM [facility] RBC 5.27 4.40 - 5.80 10(6)/mcL 04/25/2024 1:18 PM [facility] HEMOGLOBIN (HGB) 14.6 13.0 - 16.5 g/dL 04/25/2024 1:18 PM [facility] HEMATOCRIT (HCT) 42.9 38.0 - 50.0 % 04/25/2024 1:18 PM [facility] MCV 81.4(L) 82.0 - 96.0 fL 04/25/2024 1:18 PM [facility] MCH 27.7 26.0 - 32.0 pg 04/25/2024 1:18 PM [facility] MCHC 34.0 31.0 - 36.0 g/dL 04/25/2024 1:18 PM [facility] PLATELET COUNT 241 140 - 440 10(3)/mcL 04/25/2024 1:18 PM [facility] RDW 12.7 11.8 - 15.5 % 04/25/2024 1:18 PM [facility] MPV 10.5 8.0 - 12.6 fL 04/25/2024 1:18 PM [facility] NEUTROPHILS 82.6(H) 40.0 - 68.0 % 04/25/2024 1:18 PM [facility] LYMPHOCYTES 10.1(L) 19.0 - 49.0 % 04/25/2024 1:18 PM [facility] MONOCYTES 7.2 3.0 - 13.0 % 04/25/2024 1:18 PM [facility] EOSINOPHILS 0.0 0.0 - 8.0 % 04/25/2024 1:18 PM CUT IN WORKER [facility] BASOPHILS 0.1 0.0 - 1.0 % 04/25/2024 1:18 PM [facility] ABSOLUTE NEUTROPHILS 12.87(H) 1.40 - 5.30 10(3)/[facility] 04/25/2024 1:18 PM CUT IN WORKER [facility] ABSOLUTE LYMPHOCYTES 1.57 0.90 - 3.30 10(3)/[facility] 04/25/2024 1:18 PM CUT IN WORKER [facility] ABSOLUTE MONOCYTES 1.13(H) 0.10 - 0.90 10(3)/[facility] 04/25/2024 1:18 PM [facility] ABSOLUTE EOSINOPHIL 0.00 0.00 - 0.50 10(3)/[facility] 04/25/2024 1:18 PM [facility] ABSOLUTE BASOPHILS 0.02 0.00 - 0.10 10(3)/[facility] 04/25/2024 1:18 PM CUT IN WORKER [facility] NRBC PER 100 WBC 0 04/25/20 24 1:18 PM CUT IN WORKER [facility] Blood Venipuncture / Unknown 04/25/2024 1:00 PM CUT IN WORKER 04/25/2024 1:08 PM CUT IN WORKER Carter Hoover MD HEMATOLOGY ORDERABLES Final Resu lt [facility] [address] [place] [address], [place] * (ABNORMAL) PHOSPHORUS (PO4) (04/25/2024 1:00 PM CUT IN WORKER) Only the most recent of2 resultswithin the time period is included. PHOSPHORUS 2.4(L) 2.5 - 4.5 mg/dL 04/25/2024 1:46 PM CUT IN WORKER [facility] Blood Venipuncture / Unknown 04/25/2024 1:00 PM CUT IN WORKER 04/25/2024 1:08 PM CUT IN WORKER Carter Hoover MD CHEMISTRY ORDERABLES Final Resul t [facility] [address] [place] [address], * (ABNORMAL) Comprehensive Metabolic Panel (CMP) (04/25/2024 1:00 PM CUT IN WORKER) Only the most recent of2 resultswithin the time period is included. SODIUM 137 136 - 145 mmol/L 04/25/2024 1:46 PM CUT IN WORKER [facility] POTASSIUM 3.4(L) 3.5 - 5.1 mmol/L 04/25/2024 1:46 PM [facility] CHLORIDE 107 98 - 107 mmol/L 04/25/2024 1:46 PM [facility] CO2, VENOUS 20(L) 22 - 30 mmol/L 04/25/2024 1:46 PM [facility] ANION GAP 10.0 <18.0 mmol/L 04/25/2024 1:46 PM CUT IN WORKER [facility] GLUCOSE 127(H) 70 - 99 mg/dL 04/25/2024 1:46 PM CUT IN WORKER [facility] BUN 7(L) 9 - 21 mg/dL 04/25/2024 1:46 PM [facility] CREATININE, BLOOD 0.76 0.70 - 1.30 mg/dL 04/25/2024 1:46 PM [facility] BUN/CREATININE RATIO 9(L) 12 - 20 ratio 04/25/2024 1:46 PM CUT IN WORKER [facility] TOTAL PROTEIN 6.9 6.3 - 8.2 g/dL 04/25/2024 1:46 PM [facility] ALBUMIN 4.3 3.5 - 5.0 g/dL 04/25/2024 1:46 PM [facility] A/G RATIO 1.7 1.0 - 2.2 04/25/2024 1:46 PM [facility] CALCIUM 9.0 8.7 - 10.5 mg/dL 04/25/2024 1:46 PM [facility] T BILI 1.0 0.2 - 1.2 mg/dL 04/25/2024 1:46 PM CUT IN WORKER [facility] SGOT (AST) 16 5 - 34 U/L 04/25/2024 1:46 PM CUT IN WORKER [facility] SGPT (ALT) 23 0 - 55 U/L 04/25/2024 1:46 PM CUT IN WORKER [facility] ALKALINE PHOSPHATASE 87 40 - 150 U/L 04/25/2024 1:46 PM CUT IN WORKER [facility] GFR, ESTIMATED >60 >=60 04/25/2024 1:46 PM CUT IN WORKER [facility] Comment: Creatinine Clearance is the preferred criteria for selecting drug dose adjustments in renally impaired patients. ??The GFR is provided as additional pertinent clinical information. GFR is reported in mL/min/1.73 sq m. Calculation based on the Chronic Kidney Disease Epidemiology Collaboration (CKD- EPI) equation refit without adjustment for race. GFR, EST. >60 >=60 024 1:46 PM CUT IN WORKER [facility] GFR, EST. NONAFRICAN >60 >=60 04/25/2024 1:46 PM CUT IN WORKER [facility] Blood Venipuncture / Unknown 04/25/2024 1:00 PM CUT IN WORKER 04/25/2024 1:08 PM CUT IN WORKER us Carter Hoover MD CHEMISTRY ORDERABLES Final Resul t [facility] [address] [place] [id number], * EKG 12 LEAD (04/25/2024 1:40 AM CUT IN WORKER) Ventricular Rate 62 BPM EXTERNAL EKG Atrial Rate 62 BPM EXTERNAL EKG P-R Interval 146 ms EXTERNAL EKG QRS Duration 110 ms EXTERNAL EKG Q-T Duration 412 ms EXTERNAL EKG QTC CALCULATION 418 ms EXTERNAL EKG P [place] 16 degrees EXTERNAL EKG R [place] 61 degrees EXTERNAL EKG T [place] 30 degrees EXTERNAL EKG 04/25/2024 1:40 AM CUT IN WORKER Impressions EXTERNAL EKG - 04/25/2024 6:09 AM CUT IN WORKER NORMAL SINUS RHYTHM WITH SINUS ARRHYTHMIA INCOMPLETE RIGHT BUNDLE BRANCH BLOCK BORDERLINE ECG ~ Confirmed by Hernan Merchant Siddharth ([id number]) on 04/25/2024 6:09:38 AM Narrative Procedure Note Carlton Merchant MD - 04/25/2024 IMPRESSION: NORMAL SINUS RHYTHM WITH SINUS ARRHYTHMIA INCOMPLETE RIGHT BUNDLE BRANCH BLOCK BORDERLINE ECG ~ Confirmed by Hernan Merchant Siddharth ([id number]) on 04/25/2024 6:09:38 AM Leonard Samson MD IMG ECG ORDERABLE S Final Result EXTERNAL EKG * EKG SCAN (04/25/2024 12:00 AM CUT IN WORKER) 04/25/2024 us Provider Scan IMG ECG ORDERABLES Final Result Performing Organization Address City/[facility]/ZIP Co de Phone Number RESULTING AGENCY * (ABNORMAL) Ur Drug Screen w/o Confirmation (04/24/2024 3:43 PM CUT IN WORKER) UR AMPHETAMINE NON DETECTED NON DETECTED 04/24/2024 4:22 PM CUT IN WORKER [facility] Comment: FOR MEDICAL USE ONLY. CUTOFF CONCENTRATION FOR DETECTED RESULT: AMPHETAMINE: ??500 NG/ML UR BARBITURATE NON DETECTED NON DETECTED 04/24/2024 4:22 PM CUT IN WORKER [facility] Comment: FOR MEDICAL USE ONLY. CUTOFF CONCENTRATION FOR DETECTED RESULT: BARBITUATES: ? 200 NG/ML UR BENZODIAZEPINES NON DETECTED NON DETECTED 04/24/2024 4:22 PM CUT IN WORKER [facility] Comment: FOR MEDICAL USE ONLY. CUTOFF CONCENTRATION FOR DETECTED RESULT: BENZODIAZAPINE: ??200 NG/ML UR COCAINE METABOLITE NON DETECTED NON DETECTED 04/24/2024 4:22 PM [facility] Comment: FOR MEDICAL USE ONLY. CUTOFF CONCENTRATION FOR DETECTED RESULT: COCAINE: ??150 NG/ML UR OPIATES DETECTED(A) NON DETECTED 04/24/2024 4:22 PM [facility] Comment: FOR MEDICAL USE ONLY. CUTOFF CONCENTRATION FOR DETECTED RESULT: OPIATES: ? 300 NG/ML UR PHENCYCLIDINE NON DETECTED NON DETECTED 04/24/2024 4:22 PM CUT IN WORKER [facility] Comment: FOR MEDICAL USE ONLY. CUTOFF CONCENTRATION FOR DETECTED RESULT: PCP: ? 25 NG/ML UR CANNABINOID DETECTED(A) NON DETECTED 04/24/2024 4:22 PM CUT IN WORKER [facility] Comment: FOR MEDICAL USE ONLY. CUTOFF CONCENTRATION FOR DETECTED RESULT: THC (MARIJUANA): 50 NG/ML Urine Non-Phlebotomy Collection / Unknown 04/24/2024 3:43 PM CUT IN WORKER 04/24/2024 3:44 PM CUT IN WORKER us Carter Hoover MD URINE ORDERABLES Final Result Performing Organization Address City/[facility] Co de Phone Number [facility] [address] [place] [address], * Magnesium (Mg) (04/24/2024 10:11 AM CUT IN WORKER) MAGNESIUM 1.7 1.6 - 2.6 mg/dL 04/24/2024 10:58 AM CUT IN WORKER [facility] Blood Venipuncture / Unknown 04/24/2024 10:11 AM CUT IN WORKER 04/24/2024 10:15 AM CUT IN WORKER us Indra Nair MD CHEMISTRY ORDERABLES Fin al Result Performing Organization Address City/[facility] Co de Phone Number [facility] [address] [place] [address], from Last 3 Months Insurance MEDICAID [employer] [facility] Advance Directives * Full Code (Latest Code Status on File) Date Activated Date Inactivated Comments 04/24/2024 12:36 PM CPR-Full Nj atment: FULL ARREST: Attempt Resuscitation/CPR wit intubation and mechanical ventilation. PRE-ARREST: Use entire range of life support measures to stabilize the patient. Care Teams Court Assistant Relationship Specialty Start Date End Date Provider, None DELILAH PCP - General 01/15/22
--- OUTSIDE RECORDS SUMMARY | 2024-05-26 02:45 | XMS_ITS | Encounter Summary ---
Author Organization [employer] Address [address] [place] [address] Care Team Providers Care Interface Designer Name Role Phone Unavailable Primary Care Provider Unavailabl e Encounter Details Date Type Department Care Team (Late st Contact Info) Description 09/17/2023 External Device Data [facility] ABSTRACTION Provider, Abstract [...]
--- OUTSIDE RECORDS SUMMARY | 2024-05-26 02:45 | XMS_ITS | Encounter Summary ---
Author Organization [facility] Address [address] [facility] [place] [address] Phone Care Team Providers Care Lab Systems Analyst Name Role Phone Provider, None Primary Care Provider Unavailabl e Reason for Visit * Reason Comments Vomiting Encounter Details Date Type Department Care Team (Late st Contact Info) Description 01/15/2022 5:28 AM CDT - 01/15/2022 7:43 AM CDT Emergency [facility] Emergency Dept [address] [place] [address] Germán Ontiveros MD [address] [place] [address] Abdominal pain Discharge Disposition: Discharged to home [...] Sign Reading Time Taken Comments Blood Pressure 155/76 01/15/2022 7:00 AM CDT Pulse 92 01/15/2022 7:00 AM CDT Temperature 36.9 ??C (98.4 ??F) 01/15/2022 5:03 AM CD T Respiratory Rate 16 01/15/2022 7:00 AM CDT Oxygen Saturation 96% 01/15/2022 7:00 AM CDT Inhaled Oxygen Concentration - - Weight 140.6 kg (310 lb) 01/15/2022 5:03 AM CDT Height 185.4 cm (6' 1 ) 01/15/2022 5:03 AM CDT Body Mass Index 40.9 01/15/2022 5:03 AM CDT documented in this encounter Discharge Instructions * Discharge Instructions* Germán Ontiveros MD - 01/15/2022 6:47 AM CDT Maintain hydration. Use Zofran as directed for nausea. Return to the ER if you develop worsening pain, fever, persistent vomiting, black or bloody stools, or other concerns. Please see your doctor orthe diplomatic courier as directed for further evaluation and management of your symptoms. * Attachments The following attachments cannot be sent through Care Everywhere. * Abdominal Pain Adult (Mongolian) documented in this encounter Medications at Time of Discharge ondansetron (Zofran ODT) 4 MG TABLET DISPERSIBLE Take 1 Tablet by mouth every 8 hours as needed for Nausea - 1st line for up to 12 doses. 12 Tablet 01/15/2022 04/25/2024 documented as of this encounter ED Notes * Shira Mejia RN - 01/15/2022 7:43 AM CDT Pt verbalized understanding of discharge instructions and follow up. Pt ambulatory at discharge. This RN offered wheelchair and pt denies need for wheelchair. Medication education on Zofran included the following: Name, dose, route, frequency, duration, purpose for taking medication in relation to d iagnosis, expected side effects/ side effects requiring provider notification, potential interaction of medication with food or other medication, and, prior to discharge, need to limit driving or other hazardous activities while taking medication. * Ivana Coronado RN - 01/15/2022 6:09 AM CDT This RN assumed care of patient and agrees with triage note. Pt states that he has had approx six episodes of emesis and has been N/V since yesterday. Pt denies any blood in his emesis, stool, or urine. Pt denies any CP, SOB, headaches or other concerns. Pt is CAOx4 and answering all questions appropriately. Pts respirations are unlabored and at a normal rate. Pt denies any pain or other needs at this time but has intermittent abd pain. Pts vitals obtained and pt has call light within reach. * Germán Ontiveros MD - 01/15/2022 5:51 AM CDT Chief Complaint Patient presents with ??? Vomiting Aj Lunsford is a 21 y.o. Male with a PMH of Cannabinoid-induced Hyperemesis presents to the ED with nausea and vomiting. He reports he has been feeling nauseas and vomiting the past 2 weeks every time he wakes up. He also gets a burning sensation on his epigastric region. He usually has improvement of his symptoms later in the day. However, yesterday his symptoms did not improve in the morning. He has a mild burning sensation on his epigastric region and does not radiate anywhere else. He is unable to keep any food or liquids down. He ends up vomiting it immediately. During these episodes, he feels chills and diaphoretic. He is able to pass flatus and have bowel movement once a day. He states his urine smells more concentrated than usual. He denies chest pain, shortness of breath, cough,neck pain or stiffness, back pain, or leg swelling. He reports the last time he used Marijuana was 2.5 weeks ago. He has had similar episodes in the past and is usually worsened by smoking anything. He denies illicit drug use, alcohol use, or use of tobacco products. No current facility-administered medications for this encounter. No current outpatient medications on file. Not on File No past medical history on file. No past surgical history on file. Social History Socioeconomic History ??? Marital status: Not on file Spouse name: Not on file ??? Number [...] History Narrative ??? Not on file BP 143/82 Pulse 91 Temp 98.4 ??F (36.9 ??C) (Oral) Resp 16 Ht 6' 1 (1.854 m) Wt 140.6 kg(310 lb) SpO2 96% BMI 40.90 kg/m?? Review of Systems Constitutional: Positive for appetite change (decreased appetite due to vomiting), chills and diaphoresis. Negative for fever and unexpected weight change. HENT: Negative for congestion and sore throat. Eyes: Negative for visual disturbance. Respiratory: Negative for cough and shortness of breath. Cardiovascular: Negative for chest pain and leg swelling. Gastrointestinal: Positive for abdominal pain (epigastric burning sensation), nausea and vomiting. Negative for constipation and diarrhea. Endocrine: Negative for polyuria. Genitourinary: Positive for decreased urine volume. Negative for difficulty urinating and dysuria. Musculoskeletal: Negative for back pain, neck pain and neck stiffness. Skin: Negative for pallor and rash. Neurological: Positive for light-headedness. Negative for weakness and numbness. Psychiatric/Behavioral: Negative for confusion. Physical Exam Constitutional: General: He is not in acute distress. Appearance: Normal appearance. He is obese. He is not ill-appearing, toxic- appearing or diaphoretic. HENT: Head: Normocephalic and atraumatic. Right Ear: External ear normal. Left Ear: External ear normal. Nose: Nose normal. Mouth/Throat: Mouth: Mucous membranes are moist. Pharynx: Oropharynx is clear. No oropharyngeal exudate or posterior oropharyngeal erythema. Eyes: General: No scleral icterus. Extraocular Movements: Extraocular movements intact. Conjunctiva/sclera: Conjunctivae normal. Pupils: Pupils are equal, round, and reactive to light. Cardiovascular: Rate and Rhythm: Normal rate and regular rhythm. Pulses: Normal pulses. Heart sounds: Normal heart sounds. No murmur heard. No gallop. Pulmonary: Effort: Pulmonary effort is normal. No respiratory distress. Breath sounds: Normal breath sounds. No wheezing or rales. Chest: Chest wall: No tenderness. Abdominal: General: Abdomen is flat. There is no distension. Palpations: Abdomen is soft. There is no mass. Tenderness: There is abdominal tenderness (epigastric). There is no right CVA tenderness, left CVA tenderness, guarding or rebound. Musculoskeletal: General: No swelling, deformity or signs of injury. Normal range of motion. Cervical back: Normal range of motion and neck supple. No rigidity or tenderness. Right lower leg: No edema. Left lower leg: No edema. Skin: General: Skin is warm and dry. Capillary Refill: Capillary refill takes less than 2 seconds. Coloration: Skin is not jaundiced. Findings: No bruising or lesion. Neurological: General: No focal deficit present. Mental Status: He is alert and oriented to person, place, and time. Motor: No weakness. Psychiatric: Mood and Affect: Mood normal. Behavior: Behavior normal. Procedures Imaging Results None Labs Reviewed URINALYSIS REFLEX IF INDICATED BY ABNORMAL RESULTS - Abnormal; Notable for the following components: Result Value WBC ESTERASE Trace (*) PROTEIN, RANDOM URINE 1+ (*) URINE KETONES 1+ (*) All other components within normal limits CMP (COMPREHENSIVE METABOLIC PANEL) - Abnormal; Notable for the following components: GLUCOSE 112 (*) BUN 8 (*) BUN/CREATININE RATIO 11 (*) All other components within normal limits CBC WITH AUTO DIFFERENTIAL - Abnormal; Notable for the following components: NEUTROPHILS 77.8 (*) LYMPHOCYTES 14.5 (*) ABSOLUTE NEUTROPHILS 8.87 (*) All other components within normal limits LIPASE - Normal COMPLETE BLOOD COUNT (CBC) WITH DIFF Narrative: The following orders were created for panel order Complete Blood Count (CBC) WITH Diff. Procedure Abnormality Status --------- ------ CBC with Auto Differential[[id number]] Abnormal Final result Please view results for these tests on the individual orders. [facility] Coding Clinical Impression 1. Nausea and vomiting 2. Abdominal pain Aj Lunsford is a 21 y.o. Male with a PMH of Cannabinoid-induced Hyperemesis presents to the ED with nausea and vomiting. He has epigastric burning pain that does not radiate anywhere else. He has been unable to keep any fluids or food down. He immediately vomits them. He has had similar episodes like this in the past and worsened by smoking anything. He also reported Marijuana alleviates his symptoms. On exam, he was not peritonitic. He did not have guarding or rebound tenderness. He had mild epigastric tenderness. Negative zarate and Mcburney sign. No CVA tenderness. On heart exam, he had regular rate and rhythm. No murmurs or gallops. On lung exam, he had clear vesicular breath sounds throughout his lung beltrán. No wheezing or crackles. His vital signs are within normal limits. Differentials include Cannabinoid-induced Hyperemesis, Pancreatitis, Cholecystitis, Appendicitis, AAA His UA showed trace WBC esterase, urinary ketones, and 1+protein. Likely due to dehydration. His Lipase was within normal limits. CBC and CMP were unremarkable. GI cocktail, 1L NS bolus, Droperidol 0.625 mg IV, and Pantoprazole 40 mg were ordered for symptomatic management. On re-assessment, his symptoms improved. He does not feel nauseas. He has no abdominal pain. He didnot have abdominal tenderness on exam. He was able to tolerate PO trial with water and saltines. * Cassidy Rivera RN - 01/15/2022 5:08 AM CDT Pt to ED to be evaluated for vomiting and epigastric pain. Reports this started yesterday morning. States he has vomiting 6 times in total. Reports hx of nonspecific GI issues. Pt recently moved to this area. documented in this encounter Plan of Treatment Not on file documented as of this encounter Procedures Procedure Name Priority Date/Time Associated Diagnosis Comments URINALYSIS REFLEX IF INDICATED BY ABNORMAL RESULTS STAT 01/15/2022 5:31 AM CDT CBC WITH AUTO DIFFERENTIAL STAT 01/15/2022 5:14 AM CDT LIPASE STAT 01/15/2022 5:14 AM CDT CMP (COMPREHENSIVE METABOLIC PANEL) STAT 01/15/2022 5:14 AM CDT COMPLETE BLOOD COUNT (CBC) WITH DIFF STAT 01/15/2022 5:14 AM CDT documented in this encounter Results * (ABNORMAL) URINALYSIS REFLEX IF INDICATED BY ABNORMAL RESULTS (01/15/2022 5:31 AM CDT) SPECIFIC GRAVITY 1.028 1.003 - 1.030 01/15/2022 5:51 AM CDT [facility] URINE PH 8.5 5.0 - 9.0 01/15/2022 5:51 AM CDT [facility] WBC ESTERASE Trace(A) Negative 01/15/2022 5:51 AM CDT [facility] NITRITE Negative Negative 01/15/2022 5:51 AM CDT [facility] PROTEIN, RANDOM URINE 1+(A) Negative 01/15/2022 5:51 AM CDT [facility] URINE GLUCOSE, QUAL Negative Negative 01/15/2022 5:51 AM CDT [facility] URINE KETONES 1+(A) Negative 01/15/2022 5:51 AM CDT [facility] UROBILINOGEN 1.0 0.2 , 1.0 , Normal mg/dL 01/15/2022 5:51 AM CDT [facility] URINE BLOOD Negative Negative duc/ul 01/15/2022 5:51 AM CDT [facility] URINALYSIS COLOR Dark Yellow 022 5:51 AM CDT [facility] URINALYSIS CLARITY Turbid 01/15/2022 5:51 AM CDT [facility] WBC (Urine) 0-5 Negative, 0-5, 6-10, 11-20 /hpf 01/15/2022 5:51 AM CDT [facility] URINE RBC'S 0-2 Negative, 0-2, 3-5, 6-10, 11-20 /hpf 01/15/2022 5:51 AM CDT [facility] BACTERIA, URINE Negative Negative, Few /hpf 01/15/2022 5:51 AM CDT [facility] EPITHELIAL CELLS Negative /lpf 01/16/20 5:51 AM CDT [facility] HYALINE CASTS QUANT 0-2/lpf Negative, 1-5/LPF Fatty Casts, 0-2/lpf, 3-5/lpf, 6-10/lpf, 11-20/lpf, >20/lpf /lpf 01/15/2022 5:51 AM CDT [facility] Urine URINE SPECIMEN / Unknown Non-Phlebotomy Collection / Unknown 01/15/2022 5:31 AM CDT 01/15/2022 5:30 AM CDT us Linda Sarmiento MD URINE ORDERABLES Final Resu lt [facility] [address] [phone], [place] * (ABNORMAL) CBC with Auto Differential (01/15/2022 5:14 AM CDT) WBC 11.41 4.00 - 12.00 10(3)/mcL 01/15/2022 5:34 AM CDT [facility] RBC 5.11 4.40 - 5.80 10(6)/mcL 01/15/2022 5:34 AM CDT [facility] HEMOGLOBIN (HGB) 14.3 13.0 - 16.5 g/dL 01/15/2022 5:34 AM CDT [facility] HEMATOCRIT (HCT) 42.1 38.0 - 50.0 % 01/15/2022 5:34 AM CDT [facility] MCV 82.4 82.0 - 96.0 fL 01/15/2022 5:34 AM CDT [facility] MCH 28.0 26.0 - 32.0 pg 01/15/2022 5:34 AM CDT [facility] MCHC 34.0 31.0 - 36.0 g/dL 01/15/2022 5:34 AM CDT [facility] PLATELET COUNT 253 140 - 440 10(3)/mcL 01/15/2022 5:34 AM CDT [facility] RDW 12.9 11.8 - 15.5 % 01/15/2022 5:34 AM CDT [facility] MPV 11.6 8.0 - 12.6 fL 01/15/2022 5:34 AM CDT [facility] NEUTROPHILS 77.8(H) 40.0 - 68.0 % 01/15/2022 5:34 AM CDT [facility] LYMPHOCYTES 14.5(L) 19.0 - 49.0 % 01/15/2022 5:34 AM CDT [facility] MONOCYTES 6.9 3.0 - 13.0 % 01/15/2022 5:34 AM CDT [facility] EOSINOPHILS 0.4 0.0 - 8.0 % 01/15/2022 5:34 AM CDT [facility] BASOPHILS 0.4 0.0 - 1.0 % 01/15/2022 5:34 AM CDT [facility] ABSOLUTE NEUTROPHILS 8.87(H) 1.40 - 5.30 10(3)/[facility] 01/15/2022 5:34 AM CDT [facility] ABSOLUTE LYMPHOCYTES 1.66 0.90 - 3.30 10(3)/[facility] 01/15/2022 5:34 AM CDT [facility] ABSOLUTE MONOCYTES 0.79 0.10 - 0.90 10(3)/[facility] 01/15/2022 5:34 AM CDT [facility] ABSOLUTE EOSINOPHIL 0.05 0.00 - 0.50 10(3)/[facility] 01/15/2022 5:34 AM CDT [facility] ABSOLUTE BASOPHILS 0.04 0.00 - 0.10 10(3)/[facility] 01/15/2022 5:34 AM CDT [facility] NRBC PER 100 WBC 0 [facility]/16[facility]20 5:[facility] Venip[facility] / Unknown 01/15/2022 5:14 AM CDT 01/15/2022 5:23 AM CDT us Linda Sarmiento MD HEMATOLOGY ORDERABLES Final Result [facility] [address] [place] [address], [place] * Lipase (01/15/2022 5:14 AM CDT) LIPASE 18 8 - 78 U/L 01/15/2022 5:43 AM CDT [facility] Blood Venipuncture / Unknown 01/15/2022 5:14 AM CDT 01/15/2022 5:30 AM CDT us Linda Sarmiento MD CHEMISTRY ORDERABLES Final Result Performing Organization Address [facility] Co de Phone Number [facility] [address] [place] [address], [place] * (ABNORMAL) CMP (Comprehensive Metabolic Panel) (01/15/2022 5:14 AM CDT) SODIUM 142 136 - 145 mmol/L 01/15/2022 5:43 AM CDT [facility] POTASSIUM 3.7 3.5 - 5.1 mmol/L 01/15/2022 5:43 AM CDT [facility] CHLORIDE 107 98 - 107 mmol/L 01/15/2022 5:43 AM CDT [facility] CO2, VENOUS 23 22 - 30 mmol/L 01/15/2022 5:43 AM CDT [facility] ANION GAP 12.0 <18.0 mmol/L 01/15/2022 5:43 AM CDT [facility] GLUCOSE 112(H) 70 - 99 mg/dL 01/15/2022 5:43 AM CDT [facility] BUN 8(L) 9 - 21 mg/dL 01/15/2022 5:43 AM CDT [facility] CREATININE, BLOOD 0.75 0.70 - 1.30 mg/dL 01/15/2022 5:43 AM CDT [facility] BUN/CREATININE RATIO 11(L) 12 - 20 ratio 01/15/2022 5:43 AM CDT [facility] TOTAL PROTEIN 6.9 6.3 - 8.2 g/dL 01/15/2022 5:43 AM CDT [facility] ALBUMIN 4.2 3.5 - 5.0 g/dL 01/15/2022 5:43 AM CDT [facility] A/G RATIO 1.6 1.0 - 2.2 01/15/2022 5:43 AM CDT [facility] CALCIUM 9.2 8.7 - 10.5 mg/dL 01/15/2022 5:43 AM CDT [facility] T BILI 1.1 0.2 - 1.2 mg/dL 01/15/2022 5:43 AM CDT [facility] SGOT (AST) 23 5 - 34 U/L 01/15/2022 5:43 AM CDT [facility] SGPT (ALT) 37 0 - 55 U/L 01/15/2022 5:43 AM CDT [facility] ALKALINE PHOSPHATASE 127 40 - 150 U/L 01/15/2022 5:43 AM CDT [facility] GFR, ESTIMATED >60 >=60 01/15/2022 5:43 AM CDT [facility] Comment: Creatinine Clearance is the preferred criteria for selecting drug dose adjustments in renally impaired patients. ??The GFR is provided as additional pertinent clinical information. GFR is reported in mL/min/1.73 sq m. Calculation based on the Chronic Kidney Disease Epidemiology Collaboration (CKD- EPI) equation refit without adjustment for race. GFR, EST. >60 >=60 022 5:43 AM CDT [facility] GFR, EST. NONAFRICAN >60 >=60 01/15/2022 5:43 AM CDT [facility] Blood Venipuncture / Unknown 01/15/2022 5:14 AM CDT 01/15/2022 5:30 AM CDT us Linda Sarmiento MD CHEMISTRY ORDERABLES Final Result [facility] [address] [place] [address], documented in this encounter Visit Diagnoses Diagnosis Nausea and vomiting- Primary Nausea with vomiting Abdominal pain Abdominal pain, unspecified site Abdominal pain, epigastric Nausea and vomiting, unspecified vomiting type documented in this encounter Administered Medications Inactive Administered Medications - up to 3 most recent administrations Medication Order MAR Action Action Date Dose Rate Site droperidol (INAPSINE) injection 0.625 mg 0.625 mg, Intravenous, ONCE, 1 dose, On Sat01/15/22 at 0630, Given 01/15/2022 6:30 AM CDT 0.625 mg GI Cocktail 30 mL, Oral, ONCE, 1 dose, On Sat01/15/22 at 0630 Given 01/15/2022 6:31 AM CDT 30 mL ondansetron (ZOFRAN-ODT) disintegrating tablet 4 mg 4 mg, Oral, ONCE, 1 dose, On Sat01/15/22 at 0530, Contact Provider for order if patient is in first trimester of .Indications:nausea and or vomiting Given 01/15/2022 5:17 AM CDT 4 mg pantoprazole (PROTONIX) injection 40 mg 40 mg, Intravenous, DAILY, First dose on Sat01/15/22 at 0900, Until Discontinued, Administer over 3 Minutes, Indications: Symptomatic Gastroesophageal Reflux DiseaseIndications:Symptomatic Gastroesophageal Reflux Disease Given 01/15/2022 7:30 AM CDT 40 mg sodium chloride 0.9 % 1,000 mL IV bolus 1,000 mL, Intravenous, ONCE, 1 dose, On Sat01/15/22 at 0630, Administer over 1 Hours New Bag 01/15/2022 6:31 AM CDT 1,000 mL 1000 mL/hr documented in this encounter Active and Recently Administered Medications Times are shown in CDT. Scheduled Medication Order 01/13/2022 01/14/2022 01/15/2022 droperidol (INAPSINE) injection 0.625 mg (COMPLETED) 0.625 mg, Intravenous, ONCE, 1 dose, On Sat01/15/22 at 0630, 0630 (Given - Provid er: Grisel Flores RN) GI Cocktail (COMPLETED) 30 mL, Oral, ONCE, 1 dose, On Sat01/15/22 at 0630 0631 (Given - Provid er: Grisel Flores RN) ondansetron (ZOFRAN-ODT) disintegrating tablet 4 mg (COMPLETED) 4 mg, Oral, ONCE, 1 dose, On Sat01/15/22 at 0530, Contact Provider for order if patient is in first trimester of . 0517 (Given - Provid er: Cassidy Rivera RN) pantoprazole (PROTONIX) injection 40 mg 40 mg, Intravenous, DAILY, First dose on Sat01/15/22 at 0900, Until Discontinued, Administer over 3 Minutes, Indications: Symptomatic Gastroesophageal Reflux Disease 0730 (Given - Provid er: Shira Mejia RN) sodium chloride 0.9 % 1,000 mL IV bolus (COMPLETED) 1,000 mL, Intravenous, ONCE, 1 dose, On Sat01/15/22 at 0630, Administer over 1 Hours 0631 (New Bag - Prov ider: Grisel Flores RN)0731 (Stopped - Provider: Shira Mejia RN) documented in this encounter Care Teams Lab Systems Analyst Relationship Specialty Start Date End Date Provider, None [place] PCP - General 01/15/22 documented as of this encounter
--- OUTSIDE RECORDS SUMMARY | 2024-05-26 02:45 | XMS_ITS | Encounter Summary ---
Author Organization [facility] Address [address] [place] [address] Phone Care Team Providers Care Political Cartoonist Name Role Phone Provider, None Primary Care Provider Unavailabl e Reason for Visit * Reason Onset Date Comments New Patient 04/27/2024 Encounter Details Date Type Department Care Team (Late st Contact Info) Description 04/27/2024 Telephone [facility] [address] [place] [address] Provider, None [place] New Patient Social History Tobacco Use Types Packs/Day Years Used Date Smoking Tobacco: Never Assessed [facility] Utilities Answer Date Recorded In the past 12 months has th e electric, gas, oil, or water company [...] any time in the past 12 m [facility], were you homeless or living in a detention (including now)? No 04/24/2024 Sex and Gender Information Value Date Recorded Sex Assigned at Not on file Legal Sex Male 5:01 AM CDT Gender Identity Not on file Sexual Orientation Not on file documented as of this encounter Miscellaneous Notes * Telephone Encounter - Sneha Gonzalez V - 04/27/2024 9:39 AM CST Images from the original note were not included. ER/CHILLER OPERATOR * Telephone Encounter - Sneha Gonzalez V - 04/27/2024 9:38 AM CST ----- Message from Sensser sent at 04/25/2024 2:04 PM BOILER/CHILLER OPERATOR ----- Regarding: New Patient Request New [facility] Primary Provider Request Insurance of patient: medicaid aetna Name of person calling: Gisella Relationship to patient: RN Preferred phone number: [phone] Alternate phone number: no Patient reason for appointment/any current symptoms: Cannabinoid hyperemesis syndrome Other information (including need for bus mechanic): no Route ALL calls to: [facility] PATIENT NEPHROLOGY SOCIAL WORKER ER/CHILLER OPERATOR documented in this encounter Plan of Treatment Not on file documented as of this encounter Visit Diagnoses Not on filedocumented in this encounter Care Teams Political Cartoonist Relationship Specialty Start Date End Date Provider, None [place] PCP - General 01/15/22 documented as of this encounter
--- OUTSIDE RECORDS SUMMARY | 2024-05-26 02:45 | XMS_ITS | Encounter Summary ---
Author Organization [employer] Address [address] [place] [address] Care Team Providers Care Medical Certification Specialist Name Role Phone Unavailable Primary Care Provider Unavailabl e Encounter Details Date Type Department Care Team (Late st Contact Info) Description 07/15/2023 External Device Data [facility] ABSTRACTION Provider, Abstract [...]
--- OUTSIDE RECORDS SUMMARY | 2024-05-26 02:45 | XMS_ITS | Encounter Summary ---
Author Organization [employer] Address 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 States that this has been going on since this AM. States stopped using marijuana 2 days ago. Denies diarrhea. Noted to be sticking hand in mouth to gag self during triage. Advised to stop this as it will cause him to vomit. Clear emesis noted in basin Encounter Details Date Type Department Care Team (Late st Contact Info) Description 10/11/2022 7:24 AM CDT - 10/11/2022 11:40 AM CDT Emergency [facility] Emergency Department [address] [place] [address] Nadia Almanza MD [address] [place] [address] Cannabis hyperemesis syndrome concurrent with and due to cannabis dependence (Primary Dx) Discharge Disposition: Home or Self Care Social History Tobacco Use Types Packs/Day Years [...] Sign Reading Time Taken Comments Blood Pressure 135/69 10/11/2022 11:00 AM CDT Pulse 77 10/11/2022 11:00 AM CDT Temperature 36.5 ??C (97.7 ??F) 10/11/2022 10:14 AM C DT Respiratory Rate 18 10/11/2022 11:00 AM CDT Oxygen Saturation 96% 10/11/2022 11:00 AM CDT Inhaled Oxygen Concentration - - Weight 127 kg (280 lb) 10/11/2022 7:20 AM CDT Height 185.4 cm (6' 1 ) 10/11/2022 7:20 AM CDT Body Mass Index 36.94 10/11/2022 7:20 AM CDT documented in this encounter Discharge Instructions * Discharge Instructions* Nadia Almanza MD - 10/11/2022 11:30 AM CDT Avoid all marijuana based products to avoid the return of your symptoms. * Attachments The following attachments cannot be sent through Care Everywhere. * Cannabinoid Hyperemesis Syndrome (Emirati) documented in this encounter Medications at Time of Discharge Medication Sig Dispensed Refills Start Date End Date escitalopram oxalate (LEXAPRO) 20 mg tablet Take 20 mg by mouth daily. ondansetron (ZOFRAN ODT) 4 mg Tablet, Rapid Dissolve Take 1 Tablet (4 mg) by mouth every 8 hours as needed for Nausea/Emesis. Dissolve tablet on top of tongue, then swallow with saliva. 20 Tablet 10/11/2022 capsaicin (ZOSTRIX) 0.025 % Cream Apply to affected area 3 times daily. 50 Gram 10/11/2022 documented as of this encounter Progress Notes * Sohail Quiroz, RT - 10/11/2022 8:16 AM CDT Images from the original note were not included. ST IMS CT MRI Medication and Flush Protocol [facility] Approved by: [facility] - Medical Executive Committee Approval Date: 11/09/2021 ORDERS ARE ENTERED ???PER PROTOCOL?? Enter the protocol in the patient's electronic health record using smartphrase: .imagingctmriprotocol Communication Orders: For ordered imaging procedures requiring intravenous access: Initiate a peripheral IV, if not already in place, and discontinue IV prior to discharge (if outpatient). Enter order if needed: Insert Peripheral IV Bariatric Oral Contrast: Post-surgical bariatric patients will have markedly reduced ability to drink normal quantities of liquid. Four ounces will be the maximum amount or less if the patient cannot comfortably tolerate. Cancel oral contrast if patient is nauseated or vomiting. Water based contrast only. Medication Orders: Local Anesthetic for use to initiate IV ADULT Lidocaine 4% (L.M.X.4) applied topically ONE TIME prior to IV catheter insertion PRN (L.M.X.4 % should be applied 15 minutes prior to procedure) PEDIATRIC Lidocaine 4% (L.M.X.4) applied topically ONE TIME prior to IV catheter insertion PRN (apply 30 minutes prior to procedure) Sucrose 24% (Squirts) given PO prior to IV catheter insertion (administer 1 - 2 minutes prior to procedure) OR Sucrose 24% (Tootsweet; Sweet-Ease) oral solution 0.2 mL oral (apply to tongue on pacifier or clean, gloved finger), ONE TIME 2 minutes prior to painful procedure. May repeat dose x1 PRN to complete procedure. Sodium chloride 0.9% (normal saline) flush 10 mL PRN for saline lock or medication administration. For respiratory distress, initiate oxygen and/or increase O2 to maintain saturation greater than 90% For all invasive procedures: obtain Lidocaine 1% for intra-procedure administration. If Lidocaine 1% unavailable, may substitute Lidocaine 2%. PROCEDURE SPECIFIC CT MEDICATIONS Any exceptions to these contrast protocols must be approved by a Radiologist and documented in the EHR Progress Notes. When multiple medications are listed with the comment ???OR?? them, select the first option until challenges from product availability make this option unavailable. Cystogram (CT Pelvis): Iopamidol (Isovue 300) 61%, 50 mL, diluted with 250mL of sterile NS. Inject Isovue into 250 mL bag of NS. Clamp nickerson catheter prior to instilling solution via catheter. Instill up to 300 mL of Isovue and NS solution into bladder via catheter, one time. CT ORAL CONTRAST PROTOCOLS FOR ADULTS Use Iohexol (Omnipaque) 240 mg/mL for CT scan unless patient has a documented allergy to contrast dye. If allergy present, use Barium Sulfate (EZ Paque) for procedure. Iopamidol (Isovue 300) 300mg/ml: 30ml added to 960mL of clear liquid of patient's choice. Preferredroute is oral. May use nasoenteric tube if needed. Utilize the following administration instructions when there is a need to conserve contrast 15 mL of Iopamidol (Isovue 300) split into two cups (7.5 mL in each cup) Dilute as usual with 960 mL of clear liquid of patient's choice (480 mL in each cup) Have patient drink one cup an hour before the test, wait 30 minutes then start to drink the next cup, leaving a little over an inch in the bottom of the second cup. As the technologist is getting thepatient from the waiting room after an hour, have the patient finish the rest of the second cup so it can coat and fill the stomach OR Iohexol (Omnipaque) 240 mg/mL: 50ml added to 960mL of clear liquid of patient's choice. Preferred route is oral. May use nasoenteric tube if needed. Administer 900mL of the diluted Omnipaque 240, orally, one time only. Barium Sulfate (EZ Paque /Vanilla Silq) 96% oral suspension: Preferred route is oral. May use nasoenteric tube if needed. Administer 900mL of barium sulfate, orally, one time only. Bariatric Patient: Post-Surgery to 1 year- 50 mL total volume. NO carbonated liquids lopamidol (Isovue 300) 300 mg/mL: mixed with water. Draw 50 mL of mixed solution for patient. Preferred route is orally. May use nasoenteric tube if needed. OR lohexol (Omnipaque) 240 mg/mL: mixed with water. Draw 50mL of mixed solution for patient. Preferredroute is orally. May use nasoenteric tube if needed. (SUBJECT TO AVAILABILITY) After 1 year- no more than 236 mL (8oz) total volume. NO carbonated liquids. lopamidol (Isovue 300) 300 mg/mL: mixed with water OR lohexol (Omnipaque) 240 mg/mL: mixed with water (SUBJECT TO AVAILABILITY) CT ORAL CONTRAST PROTOCOLS FOR PEDIATRICS Pediatrics = up to age 18 Pediatric Radiologist will approve of one of the following products selected for procedure. Barium Sulfate (EZ Paque) 96% oral suspension: preferred route is oral. May use nasoenteric tube ifneeded. to 3 months Administer up to 90mL of Barium sulfate, orally, one time only 4 months to 1 year old Administer up to 240mL of Barium sulfate, Orally, One Time Only 1 year old to 5 years old Administer up to 360mL of Barium sulfate, Orally, One Time Only 5 years old to 10 years old Administer up to 480mL of Barium sulfate, Orally, One Time Only Over 10 years old Administer up to 600mL of Barium sulfate, Orally, One Time Only Iopamidol (Isovue 300) 300 mg/mL oral solution Dilute 25mL of Iohexol with 480mL of clear liquid of patient's choice. Administer the diluted solution per age as follows: Preferred route is orally. May use nasoenteric tube if needed. Send any remaining diluted Iohexol solution with the patient's nurse to CT Iopamidol (Isovue) 300 mg/ml oral solution age appropriate guidelines Administer 45mL of diluted Iopamidol oral solution, orally every 30 minutes x 2 doses. 1 month to 1 year old Administer 120mL of diluted Iopamidol oral solution, orally every 30 min x 2 doses. 1 year old to 5 years old Administer 180mL of diluted Iopamidol oral solution, orally every 30 min x 2 doses. 5 years old to 10 years old Administer 240mL of diluted Iopamidol oral solution, orally every 30 min x 2 doses. Over 10 years old Administer 245mL of diluted Iopamidol oral solution, orally every 30 min x 2 doses. OR Iohexol (Omnipaque) 240 mg/mL oral solution Dilute 25mL of Iohexol with 480mL of clear liquid of patient's choice. Administer the diluted solution per age as follows: Preferred route is orally. May use nasoenteric tube if needed. Send any remaining diluted Iohexol solution with the patient's nurse to CT Iohexol (Omnipaque) 240mg/ml oral solution age appropriate guidelines Administer 45mL of diluted Iohexol oral solution, orally every 30 minutes x 2 doses. 1 month to 1 year old Administer 120mL of diluted Iohexol oral solution, orally every 30 min x 2 doses. 1 year old to 5 years old Administer 180mL of Iohexol orally every 30 min x 2 doses. 5 years old to 10 years old Administer 240mL of Iohexol orally every 30 min x 2 doses. Over 10 years old Administer 250mL of Iohexol orally every 30 min x [address] RECTAL CONTRAST PROTOCOLS ADULTS: Iopamidol (Isovue) 300 mg/mL: Dilute 30mL of Isovue with 900mL of warm water in an enema bag. Administer the diluted solution rectally via gravity per patient's tolerance, up to 950mLs, one time only. OR Iohexol (Omnipaque) 240 mg/mL: Dilute 50mL of Omnipaque with 900mL of warm water in an enema bag. Administer the diluted solution rectally via gravity per patient's tolerance, up to 950mLs, one time only. CT IV CONTRAST PROTOCOLS for ADULT ADULTS: (If patient is less than 55kg and confirm dose with radiologist) Iopadmidol (Isovue-300): Administer 2.2mL/kg of Iopamidol 61%, intravenously, one time only. See table below for maximum dose, unless otherwise authorized by radiologist. If exam has been completed before the entire dose has been administered, stop the injection. Multiple doses of iodine contrast within a 24-hour period are a risk factor for TIFFANY and should be avoided if possible. Emergent or other unusual circumstances where multiple doses of contrast are required in a short interval time should prompt consideration by the referring professional and radiologist to discuss the risks and benefits of contrast media administration. If exam not included in table below, contact radiologist for orders. Procedure Maximum Dose CT Head with Contrast Up to [address] Chest with Contrast Up to [address] Maxillofacial with Contrast Up to [address] Soft Tissue Neck with Contrast CT Chest Abdomen Pelvis with Contrast CT Chest Abdomen with Contrast CT Abdomen Pelvis with Contrast CT Pelvis with Contrast CT Angiogram Examinations (all) CT Soft Tissue Neck and Chest Abdomen Pelvis with Contrast Up to [address] Soft Tissue Neck and Chest with Contrast CT Urogram with Contrast CT IV CONTRAST PROTOCOLS for PEDIATRICS PEDIATRICS: Use weight-based dosing if patient is less than 55kg and confirm dose with radiologist. to 15 years old Administer 2.2mL/kg (to MAX of 80 mL) of Iopamidol (Isovue-300) 61%, intravenously, one time only 15 years old and older Administer 2.2mL/kg (to MAX of 150mL) of Iopamidol (Isovue-300) 61%, intravenously, one time only PROCEDURE SPECIFIC MRI MEDICATIONS: MRI ENTEROGRAPHY: GLUGACON ADMINISTRATION ADULTS: (patient 18 years or older) Patient will receive 2 doses of Glucagon one dose 0.5mg IM administered by RN prior to the MRI exambeginning 2nd dose 0.5mg IV prior to the IV contrast being administered. (If the patient is diabetic call the radiologist to verify administration of Glucagon) PEDIATRICS: If the patient is diabetic call the radiologist to verify administration of Glucagon Pediatric patient weighing 24.9 kg or less should have one dose of Glucagon 0.5mg IM administered by RN prior to MRI exam beginning. Pediatric patient weighing 25 kg or greater should have one dose of Glucagon 1 mg IM administered by RN prior to the MRI exam beginning. MRI UROGRAM: LASIX ADMINISTRATION ADULTS: Call radiologist with any questions regarding administration of Lasix Lasix 0.1mg per kg with a minimum dose of Lasix 5mg IV being given up to a max dose of Lasix 10mg IV being given. The Lasix should be administered by RN prior to the IV contrast being administered. (Hold Lasix if: obstruction, anuria and hypersensitivity to furosemide, and electrolyte imbalance or hypotension should be corrected by RN before administering) MRI IV CONTRAST PROTOCOLS ADULTS: Multihance and Prohance can be used for most MRI scans Prohance should be used primarily. Multihance is useful in specific circumstances as directed by the radiologist or per the appropriate sections established protocols. Group I gadolinium contrast agents shall not be administered. Generally, multiple doses of gadolinium contrast should not be administered within a 24-hour period. In emergent or other unusual circumstances where this is necessary, only Group II agents should beadministered. For Liver Studies: Contact radiologist to determine use of one of the following: Gadobenate Dimeglumine (Multihance) (0.1mmol/0.2mL), Administer 0.1mmol/kg = 0.2mL/kg up to MAX of 20 mL, intravenously, one time only Gadoteridol (Prohance) (0.1mmol/0.2mL), Administer 0.1mmol/kg = 0.2mL/kg up to MAX of 20mL, intravenously, one time only Gadoxetate (Eovist) (2.5 mmol/10mL), Administer 0.025mmol/kg = 0.1mL/kg up to MAX of 10mL, intravenously, one time only PEDIATRICS: Radiologist to determine need for contrast Term neonates up to 2 years: Gadobuterol (Gadavist) (1mmol/mL injection), Administer 0.1mmol/kg = 0.1mL/kg up to MAX of 14mmol=14mL, intravenously, one time only OR Gadobenate Dimeglumine (Multihance) (0.1mmol/mL), Administer 0.1mmol/kg = 0.1mL/kg up to MAX of 14mmol = 14mL, intravenously, one time only 2 years and older Gadobenate Dimeglumine (Multihance) (0.1mmol/0.2mL), Administer 0.1mmol/kg = 0.2mL/kg up to MAX of 20mL, intravenously, one time only OR Gadoteridol (Prohance) (0.1mmol/0.2mL), Administer 0.1mmol/kg = 0.2mL/kg up to MAX of 20mL, intravenously, one time only TABLE 1. ACR Manual Classification of Gadolinium-Based Agents Relative to Nephrogenic Systemic Fibrosis Group I: Agents associated with the greatest number of NSF cases: Gadodiamide (Omniscan?? - ConnectYard) Gadopentetate dimeglumine (Magnevist?? - HaveMyShift) Gadoversetamide (OptiMARK?? - Guerbet) Group II: Agents associated with few, if any, unconfounded cases of NSF: Gadobenate dimeglumine (MultiHance?? - Real Time Tomography Diagnostics) Gadobutrol (Gadavist?? - HaveMyShift; Gadovist in many countries) Gadoteric acid (Dotarem?? - Guerbet, Clariscan - ConnectYard) Gadoteridol (ProHance?? - Real Time Tomography Diagnostics) Group III: Agents for which data remains limited regarding NSF risk, but for which few, if any unconfounded cases of NSF have been reported: Gadoxetate disodium (Eovist - HaveMyShift; Primovist in many countries) documented in this encounter ED Notes * Laury Mcneil RN - 10/11/2022 11:38 AM CDT Pt given discharge instructions. Answered all question , pt verbalized understanding. PT ambulated out of the department with no problems. * Laury Mcneil RN - 10/11/2022 11:14 AM CDT PT given crackers and a clear soda for a P.O challenges * Laury Mcneil RN - 10/11/2022 10:46 AM CDT PT resting on the stretcher. Breathing is even and unlabored. Zostrix cream applied to the patientsabd. Call light in reach. * Laury Mcneil RN - 10/11/2022 10:15 AM CDT PT sitting up on the stretcher. Breathing is even and unlabored. PT is requesting a cream for his abdomin. This RN updated pt on waiting for pharmacy to bring the meds up. PT is not actively vomitingat this time. Call light in reach. * Laury Mcneil RN - 10/11/2022 9:38 AM CDT PT sitting up on the stretcher. PT is requesting more medication at this time. This explained to ptthe the MD is aware and it's not quite time for medication. Breathing is even and unlabored. Call light in reach. * Laury Mcneil RN - 10/11/2022 9:08 AM CDT Pt is sitting up on the stretcher. PT states I Need mor meds Breathing is even and unlabored. Dr. Almanza aware * Laury Mcneil RN - 10/11/2022 8:32 AM CDT PT is rocking in the bed requesting medication . PT has some bile noted int he emesis basin. Breathing is even and unlabored . IV infusing with no problems. DR. Almanza aware and medication ordered. * Laury Mcneil RN - 10/11/2022 7:37 AM CDT 22 y/o M arrived with c/o nausea and a midline abdominal pain starting this a.m. PT report I havehyperemesis from cannabis PT is very diaphoretic when this Rn entered there room. Cold wash cloth placed on the patients head . Breathing is even and unlabored. PT abd is round. IV and blood work obtained at this time. Call light in reach. * Nadia Almanza MD - 10/11/2022 7:19 AM CDT HISTORY OF PRESENT ILLNESS Aj Lunsford, a 22 y.o. male presents to the ED with a Chief Complaint of Nausea Subjective Documented Triage Chief Complaint: nausea 7:35 AM: Aj Lunsford is a 22 y.o. male with a history of marijuana use, who presents to the Emergency Department with complaints of nausea. The patient reports trying to stop use of marijuana after several years of chronic use 1 week ago. The patient had nausea and chills at that time. He was seen at OSH then. He began marijuana use again. He reports trying to stop use 2 days ago as well. He has had return of the same symptoms, nausea, vomiting, and chills. Lives in [place] but is visiting here. Does not have any of his anti-emetics here as they are all home in [place]. He denies alcohol or cigarette use. Denies medical problems otherwise. History provided by: The patient Arrived from: Home REVIEW OF SYSTEMS Review of Systems Constitutional: Positive for chills. Negative for fever. Gastrointestinal: Positive for nausea and vomiting. Neurological: Negative for speech difficulty. Psychiatric/Behavioral: Negative for confusion. PAST MEDICAL HISTORY REVIEWED MEDICAL: Patient has no past medical history on file. SURGICAL: Patient has no past surgical history on file. FAMILY: Patient's family history is not on file. SOCIAL: No history on file. Social History Other Topics Concern Not on file ALLERGIES Patient has no known allergies. HOME MEDICATIONS Discharge Medication List as of 10/11/2022 11:30 AM START taking these medications Details ondansetron (ZOFRAN ODT) 4 mg Tablet, Rapid Dissolve Take 1 Tablet (4 mg) by mouth every 8 hours asneeded for Nausea/Emesis. Dissolve tablet on top of tongue, then swallow with saliva., Disp-20 Tablet, R-0 capsaicin (ZOSTRIX) 0.025 % Cream Apply to affected area 3 times daily., Disp-50 Gram, R-0 CONTINUE these medications which have NOT CHANGED Details escitalopram oxalate (LEXAPRO) 20 mg tablet Take 20 mg by mouth daily. Objective PHYSICAL EXAM INITIAL VS BP: (!) 151/90 (10/11/22719), Heart Rate: 88 bpm (10/11/22719), Resp: 18 (10/11/22719), Pulse: 88 (10/11/22719), Temp: 97.6 ??F (36.4 ??C) (10/11/22719), Temp src: Oral (10/11/22719), SpO2: 100 % (10/11/22719), Height: 6' 1 (185.4 cm) (10/11/22719), Weight: 127 kg (280 lb) (10/11/22719), BMI (Calculated): (!) 36.95 (10/11/22719) No LMP for male patient. Physical Exam Vitals reviewed. Constitutional: General: He is not in acute distress. Appearance: He is well-developed. He is diaphoretic. Comments: Writhing in bed. HENT: Head: Normocephalic. Eyes: Conjunctiva/sclera: Conjunctivae normal. Neck: Trachea: No tracheal deviation. Cardiovascular: Rate and Rhythm: Normal rate and regular rhythm. Pulmonary: Effort: Pulmonary effort is normal. No respiratory distress. Breath sounds: Normal breath sounds. Abdominal: Palpations: Abdomen is soft. Tenderness: There is no abdominal tenderness. There is no right CVA tenderness, left CVA tenderness, guarding or rebound. Musculoskeletal: General: No deformity. Skin: General: Skin is warm. Neurological: General: No focal deficit present. Mental Status: He is alert. DIAGNOSTICS LAB: CBC WITH DIFFERENTIAL - Abnormal Result Value WBC 14.6 (*) RBC 6.00 (*) HEMOGLOBIN 16.8 (*) HEMATOCRIT 50.6 (*) MCV 84.3 MCH 28.0 MCHC 33.2 RDW 13.0 RDW-STDEV 39.9 PLATELETS 266 MPV 11.2 NEUTROPHILS 77 LYMPHOCYTES 15 MONOCYTES 6 EOSINOPHILS 1 BASOPHILS 0 IMMATURE GRANULOCYTES 1 NEUTROPHIL ABSOLUTE 11.16 (*) LYMPHOCYTE ABSOLUTE 2.22 MONOCYTE ABSOLUTE 0.82 EOSINOPHIL ABSOLUTE 0.16 BASOPHILS ABSOLUTE 0.03 IMMATURE GRANULOCYTES ABSOLUTE 0.19 (*) COMPREHENSIVE METABOLIC PANEL - Abnormal SODIUM 140 POTASSIUM 3.9 CHLORIDE 102 CO2 21 (*) CALCIUM 10.0 BUN 17 CREATININE 0.89 GLUCOSE 119 (*) TOTAL PROTEIN 7.8 ALBUMIN 4.7 BILIRUBIN TOTAL 0.8 ALKALINE PHOSPHATASE 90 AST 28 ALT 24 GFR >60 ANION GAP 17 (*) LIPASE - Normal LIPASE 21 POC CREATININE - Normal CREATININE POC 0.90 GFR POC >60 POC CREATININE RADIOLOGY: CT ABDOMEN PELVIS W CONTRAST Radiologist Impression IMPRESSION: 1. No acute findings identified in the abdomen or pelvis. DICTATION LOCATION: Location 1 - [facility] EKG: PROCEDURES Procedures MEDICAL DECISION MAKING AND PLAN OF CARE ED Course as of 10/11/22 1149 Tania October 11, [address] negative. Complaining of continued nausea just a bit ago, haldol given. Will reassess shortly. CMP and lipase still pending [MD] 0908 Patient asking for additional medications- last dose given only 30 minutes ago. Will need to space medications a bit further. CMP and lipase reassuring as above. [MD] 1022 Updated patient who is feeling better. Will PO test and patient is agreeable with this plan. Patient is here visiting his significant other and he left his antinausea medication in [place] where he lives. [KG] 1129 Successful PO test. Rewrote prescription for medications. Will discharge. [KG] ED Course User Index [KG] Siva Arenas Scribe [] Nadia Almanza MD Medical Decision Making Summary: 22 y.o. presents with nausea and diffuse abdominal pain whose symptoms started this morning. Patient reports last marijuana use was 2 days ago. History of similar symptoms with marijuana use. Labs and imaging obtained as above without acute pathology identified. Electrolytes reassuring. Patient received several rounds of medications in the ED. He was PO challenged and tolerated. He does not have any of his medications with him as he is visiting from [place]- meds were refilled. Discussed all results with the patient. Questions were answered and patient agreeable with plan. Will release home at this time. Return to the ED for any new or worsening symptoms. Differential diagnosis includes, but is not limited to, cannabinoid hyperemesis, gastritis,ulcer . By virtue of history and Non-ED notes reviewed: [facility] ED records from [place] Additional information obtained from independent historian, None. The following social determinants of health potentially complicated the patient's course and were considered in my plan of care: None Amount and/or Complexity of Data Reviewed External Data Reviewed: notes. Details: Patient went to [facility] in [place] on 10/04 for similar symptoms. Labs: ordered. Radiology: ordered. Risk OTC drugs. Prescription drug management. Clinical Scoring & Consults Medications Administered During the ED Stay from 10/11/2022 0719 to 10/11/2022 1149 Date/Time Order Dose Route Action 10/11/2022 0749 CDT sodium chloride 0.9% bolus solution 1,000 mL 1,000 mL IV New Bag 10/11/2022 0749 CDT morphine 4 mg/mL injection 4 mg 4 mg IV Given 10/11/2022 0749 CDT ondansetron (ZOFRAN) 4 mg/2 mL injection 4 mg 4 mg IV Given 10/11/2022 0819 CDT iopamidoL (ISOVUE-300) 61% injection (drawn from multi-use bulk pack) 90 mL 90 mL IV Contrast Given 10/11/2022 0819 CDT sodium chloride flush injection 10 mL 10 mL IV Given 10/11/2022 0839 CDT haloperidol lactate (HALDOL) injection 2 mg 2 mg IV Given 10/11/2022 0945 CDT capsaicin (ZOSTRIX) 0.025 % topical cream -- Topical Given 10/11/2022 0951 CDT haloperidol lactate (HALDOL) injection 2 mg 2 mg IV Given Discharge Medication List as of 10/11/2022 11:30 AM START taking these medications Details ondansetron (ZOFRAN ODT) 4 mg Tablet, Rapid Dissolve Take 1 Tablet (4 mg) by mouth every 8 hours asneeded for Nausea/Emesis. Dissolve tablet on top of tongue, then swallow with saliva., Disp-20 Tablet, R-0 capsaicin (ZOSTRIX) 0.025 % Cream Apply to affected area 3 times daily., Disp-50 Gram, R-0 CONTINUE these medications which have NOT CHANGED Details escitalopram oxalate (LEXAPRO) 20 mg tablet Take 20 mg by mouth daily. LAST VS BP: 135/69 (10/11/22 1100), Heart Rate: 88 bpm (10/11/22 0720), Resp: 18 (10/11/22 1100), Pulse: 77(10/11/22 1100), Temp: 97.7 ??F (36.5 ??C) (10/11/22 1014), Temp src: Oral (10/11/22 1014), SpO2: 96 % (10/11/22 1100) CLINICAL IMPRESSION Final diagnoses: [F12.288] Cannabis hyperemesis syndrome concurrent with and due to cannabis dependence (Primary) DISPOSITION, EDUCATION AND MEDICATION RECONCILIATION Medications reconciled. See after visit summary for patient education on discharged patients. ED Disposition ED Disposition Discharge Condition Stable User Nadia Almanza MD Date/Time Tania October 11, 2022 11:29 AM Comment -- ATTESTATION STATEMENTS This note has been prepared by Siva Gavin acting as a scribe for Dr. Nadia Pedroza on 10/11/2022 at 9:19 AM. The scribe's documentation has been prepared under my direction and personally reviewed by me, Nadia Almanza MD , in its entirety on 10/11/22 at 11:49 AM. I confirm that the note above accurately reflects all work, treatment, procedures, and medical decision making performed by me. documented in this encounter Plan of Treatment Not on file documented as of this encounter Procedures Procedure Name Priority Date/Time Associated Diagnosis Comments CT ABDOMEN PELVIS W CONTRAST Stat 10/11/2022 8:25 AM CDT POC CREATININE Stat 10/11/2022 7:48 AM CDT CBC WITH DIFFERENTIAL Stat 10/11/2022 7:44 AM CDT LIPASE Stat 10/11/2022 7:44 AM CDT COMPREHENSIVE METABOLIC PANEL Stat 10/11/2022 7:44 AM CDT documented in this encounter Results * CT ABDOMEN PELVIS W CONTRAST (10/11/2022 8:25 AM CDT) Anatomical Region Laterality Modality Abdomen Computed Tomogra phy 10/11/2022 8:12 AM CDT Impressions 10/11/2022 8:40 AM CDT IMPRESSION: 1. No acute findings identified in the abdomen or pelvis. DICTATION LOCATION: Location 1 - [facility] 10/11/2022 8:40 AM CDT EXAMINATION: CT ABDOMEN PELVIS W CONTRAST HISTORY: abd pain, vomiting, diffuse pain ?? TECHNIQUE: Computed tomography of the abdomen and pelvis was performed following the uneventful administration of intravenous contrast (90 mL Isovue-300) according to standard protocol. The examination was performed with the adjustment of mA according to the patient size and/or the use of Iterative Reconstruction Technique. ?? COMPARISON: None available. FINDINGS: ?? Other than mild bilateral dependent atelectasis, the visible lung bases are clear of acute focal consolidation. The heart size is normal without pericardial effusion. The liver enhances homogeneously without focal lesion. The gallbladder is normal in appearance. No intrahepatic or extrahepatic biliary ductal dilatations identified. The portal and superior mesenteric veins are patent. The spleen, adrenal glands, and pancreas are normal in appearance. The kidneys enhance symmetrically without focal lesion. No hydronephrosis or nephrolithiasis. The distal esophagus and stomach are normal in appearance. The small and large bowel are normal in appearance without evidence of wall thickening or obstruction. The appendix is normal in appearance. No abdominal lymphadenopathy is identified. No free intraperitoneal fluid or gas is identified. Urinary bladder is normal in appearance. The prostate is normal in size. No pelvic lymphadenopathy is identified. The aorta is normal in caliber without evidence of aneurysmal dilatation. No suspicious lytic or blastic osseous lesions are identified. Procedure Note Andres Bryant MD - 10/11/2022 EXAMINATION: CT ABDOMEN PELVIS W CONTRAST HISTORY: abd pain, vomiting, diffuse pain TECHNIQUE: Computed tomography of the abdomen and pelvis was performed following the uneventful administration of intravenous contrast (90 mL Isovue-300) according to standard protocol. The examination was performed with the adjustment of mA according to the patient size and/or the use of Iterative Reconstruction Technique. COMPARISON: None available. FINDINGS: Other than mild bilateral dependent atelectasis, the visible lung bases are clear of acute focal consolidation. The heart size is normal without pericardial effusion. The liver enhances homogeneously without focal lesion. The gallbladder is normal in appearance. No intrahepatic or extrahepatic biliary ductal dilatations identified. The portal and superior mesenteric veins are patent. The spleen, adrenal glands, and pancreas are normal in appearance. The kidneys enhance symmetrically without focal lesion. No hydronephrosis or nephrolithiasis. The distal esophagus and stomach are normal in appearance. The small and large bowel are normal in appearance without evidence of wall thickening or obstruction. The appendix is normal in appearance. No abdominal lymphadenopathy is identified. No free intraperitoneal fluid or gas is identified. Urinary bladder is normal in appearance. The prostate is normal in size. No pelvic lymphadenopathy is identified. The aorta is normal in caliber without evidence of aneurysmal dilatation. No suspicious lytic or blastic osseous lesions are identified. IMPRESSION: 1. No acute findings identified in the abdomen or pelvis. DICTATION LOCATION: Location 1 - [facility] Nadia Almanza MD CT ORDERABLES * POC CREATININE (10/11/2022 7:48 AM CDT) CREATININE POC 0.90 0.70 - 1.20 mg/dL 10/11/2022 7:48 AM CDT [facility] [employer] [facility] GFR POC >60 >=60 mL/min/1.7 3 sq meter 10/11/2022 7:48 AM CDT [facility] [employer] [facility] Comment:eGFR calculated with 2020 CKD-EPI equation. Vegetarian diet, extremely high or low muscle mass, and may affect results. Cystatin C with Glomerular Filtration Rate is a suitable alternative for these patients. Blood, whole 10/11/2022 7:48 AM CDT 10/11/2022 7:50 AM CDT Nadia Almanza MD POINT OF CARE TESTIN G [facility] [employer] [facility] [facility] CLIA# [id number] [address] [place] [address] * LIPASE (10/11/2022 7:44 AM CDT) Pathologist [facility] LIPASE 21 13 - 60 U/L 10/11/2022 9:08 AM T [facility] Blood Venipuncture / Unknown 10/11/2022 7:44 AM CDT 10/11/2022 8:01 AM CDT Nadia Almanza MD CHEMISTRY ORDERABLES [facility] [id number] [address] [place] [address] * (ABNORMAL) COMPREHENSIVE METABOLIC PANEL (10/11/2022 7:44 AM CDT) Pathologist [facility] SODIUM 140 136 - 145 mmol/L 10/11/2022 9:08 AM [facility] POTASSIUM 3.9 3.5 - 5.0 mmol/L 10/11/2022 9:08 AM [facility] Comment:Slightly hemolyzed. Result may be falsely elevated. CHLORIDE 102 98 - 107 mmol/L 10/11/2022 9:08 AM [facility] CO2 21(L) 22 - 29 mmol/L 10/11/2022 9:08 AM [facility] CALCIUM 10.0 8.6 - 10.2 mg/dL 10/11/2022 9:08 AM [facility] BUN 17 6 - 20 mg/dL 10/11/2022 9:08 AM [facility] CREATININE 0.89 0.67 - 1.17 mg/dL 10/11/2022 9:08 AM [facility] GLUCOSE 119(H) 74 - 99 mg/dL 10/11/2022 9:08 AM [facility] TOTAL PROTEIN 7.8 6.7 - 8.6 g/dL 10/11/2022 9:08 AM [facility] ALBUMIN 4.7 3.5 - 5.2 g/dL 10/11/2022 9:08 AM [facility] BILIRUBIN TOTAL 0.8 0.3 - 1.2 mg/dL 10/11/2022 9:08 AM [facility] ALKALINE PHOSPHATASE 90 40 - 129 U/L 10/11/2022 9:08 AM [facility] AST 28 <41 U/L 10/11/2022 9:08 AM [facility] Comment:Hemolysis present. R esult may be falsely elevated. ALT 24 <42 U/L 10/11/2022 9:08 AM [facility] GFR >60 >=60 mL/min/1.7 3 sq meter 10/11/2022 9:08 AM [facility] Comment:eGFR calculated with 2020 CKD-EPI equation. Vegetarian diet, extremely high or low muscle mass, and may affect results. Cystatin C with Glomerular Filtration Rate is a suitable alternative for these patients. ANION GAP 17(H) 8 - 16 mmol/L 10/11/2022 9:08 AM [facility] Blood Venipuncture / Unknown 10/11/2022 7:44 AM CDT 10/11/2022 8:01 AM CDT [facility] - 10/11/2022 9:08 AM CDT Samples containing indocyanine green cause interferences on Total and/or Direct Bilirubin and must not be measured. Nadia Almanaz MD CHEMISTRY ORDERABLES [facility]# [id number] [address] [facility] [address] [address] * (ABNORMAL) CBC WITH DIFFERENTIAL (10/11/2022 7:44 AM CDT) WBC 14.6(H) 4.0 - 9.8 K/uL 10/11/2022 8:33 AM CDT [employer] [facility] [employer] [facility] RBC 6.00(H) 4.50 - 5.40 M/uL 10/11/2022 8:33 AM CDT [facility] HEMOGLOBIN 16.8(H) 13.6 - 16.5 g/dL 10/11/2022 8:33 AM CDT [facility] HEMATOCRIT 50.6(H) 40.0 - 48.0 % 10/11/2022 8:33 AM CDT [facility] MCV 84.3 82.0 - 99.0 fL 10/11/2022 8:33 AM CDT [employer] [facility] MCH 28.0 27.2 - 32.6 pg 10/11/2022 8:33 AM CDT [employer] [facility] [employer] [facility] . [facility] MCHC 33.2 31.5 - 35.5 g/dL 10/11/2022 8:33 AM CDT [employer] [facility] RDW 13.0 11.5 - 14.5 % 10/11/2022 8:33 AM CDT [employer] [facility] [employer] [facility] . [facility] RDW-STDEV 39.9 37.1 - 48.7 fL 10/11/2022 8:33 AM CDT [employer] [facility] PLATELETS 266 140 - 350 K/uL 10/11/2022 8:33 AM CDT [employer] [facility] MPV 11.2 9.3 - 12.4 fL 10/11/2022 8:33 AM CDT [employer] [facility] NEUTROPHILS 77 % 10/11/2022 8:33 AM CDT [facility] LYMPHOCYTES 15 % 10/11/2022 8:33 AM CDT [facility] MONOCYTES 6 % 10/11/2022 8:33 AM CDT [facility] EOSINOPHILS 1 % 10/11/2022 8:33 AM CDT [facility] BASOPHILS 0 % 10/11/2022 8:33 AM CDT [employer] [facility] [employer] [facility] IMMATURE GRANULOCYTES 1 % 10/11/2022 8:33 AM CDT [facility] Comment:IG (Immature Granulo cyte) count includes Metamyelocytes, Myelocytes, and Promyelocytes NEUTROPHIL ABSOLUTE 11.16(H) 1.90 - 7.00 K/uL 10/11/2022 8:33 AM CDT [facility] LYMPHOCYTE ABSOLUTE 2.22 0.70 - 4.50 K/uL 10/11/2022 8:33 AM CDT [facility]. [facility] MONOCYTE ABSOLUTE 0.82 0.10 - 1.30 K/uL 10/11/2022 8:33 AM CDT [facility]. [facility] EOSINOPHIL ABSOLUTE 0.16 0.00 - 0.70 K/uL 10/11/2022 8:33 AM CDT [facility] - . [facility] BASOPHILS ABSOLUTE 0.03 0.00 - 0.20 K/uL 10/11/2022 8:33 AM T [facility]. [facility] IMMATURE GRANULOCYTES ABSOLUTE 0.19(H) 0.00 - 0.03 K/uL 10/11/2022 8:33 AM T [facility] Blood Venipuncture / Unknown 10/11/2022 7:44 AM CDT 10/11/2022 8:01 AM CDT Nadia Almanza MD HEMATOLOGY ORDERABLE S [facility]# [id number] [address] [place] [id number] documented in this encounter Visit Diagnoses Diagnosis Cannabis hyperemesis syndrome concurrent with and due to cannabis dependence- Primary documented in this encounter Administered Medications Inactive Administered Medications - up to 3 most recent administrations Medication Order MAR Action Action Date Dose Rate Site capsaicin (ZOSTRIX) 0.025 % topical cream Topical, ONE TIME ONLY, 1 dose, On Sat10/11/22 at 0945, Routine Given 10/11/2022 9:45 AM CDT Abdominal Tissue haloperidol lactate (HALDOL) injection 2 mg 2 mg, IV, ONE TIME ONLY, 1 dose, On Tania 10/11/22 at 0845, Routine Given 10/11/2022 8:39 AM CDT 2 mg haloperidol lactate (HALDOL) injection 2 mg 2 mg, IV, ONE TIME ONLY, 1 dose, On Tania 10/11/22 at 0945, Routine Given 10/11/2022 9:51 AM CDT 2 mg iopamidoL (ISOVUE-300) 61% injection (drawn from multi-use bulk pack) 90 mL 90 mL, IV, INTRA-PROCEDURE ONCE, 1 dose, Starting on Tania 10/11/22 at 0818, Until Tania 10/11/22 at 0819, Routine Contrast Given 10/11/2022 8:19 AM CDT 90 mL morphine 4 mg/mL injection 4 mg 4 mg, IV, ONE TIME ONLY, 1 dose, On Tania 10/11/22 at 0745, Routine Given 10/11/2022 7:49 AM CDT 4 mg ondansetron (ZOFRAN) 4 mg/2 mL injection 4 mg 4 mg, IV, ONE TIME ONLY, 1 dose, On Tania 10/11/22 at 0745, Routine Given 10/11/2022 7:49 AM CDT 4 mg sodium chloride 0.9% bolus solution 1,000 mL 1,000 mL, IV, ONE TIME ONLY, 1 dose, On Tania 10/11/22 at 0745, at 2,000 mL/hr, Administer over 30 Minutes, Routine New Bag 10/11/2022 7:49 AM CDT 1,000 mL 2000 mL/hr sodium chloride flush injection 10 mL 10 mL, IV, SEE ADMIN INSTRUCTIONS, Starting on Tania 10/11/22 at 0819, Until Tania 10/11/22 at 1218, Routine Given 10/11/2022 8:19 AM CDT 10 mL documented in this encounter Active and Recently Administered Medications Times are shown in CDT. Scheduled Medication Order 10/09/2022 10/10/2022 10/11/2022 capsaicin (ZOSTRIX) 0.025 % topical cream (COMPLETED) Topical, ONE TIME ONLY, 1 dose, On Tania 10/11/22 at 0945, Routine 0945 (Given - Provid er: Laury Mcneil RN) haloperidol lactate (HALDOL) injection 2 mg (COMPLETED) 2 mg, IV, ONE TIME ONLY, 1 dose, On Tania 10/11/22 at 0845, Routine 0839 (Given - Provid er: Kendell Chase, EMT-P) haloperidol lactate (HALDOL) injection 2 mg (COMPLETED) 2 mg, IV, ONE TIME ONLY, 1 dose, On Tania 10/11/22 at 0945, Routine 0951 (Given - Provid er: Kendell Chase, EMT-P) iopamidoL (ISOVUE-300) 61% injection (drawn from multi-use bulk pack) 90 mL (COMPLETED) 90 mL, IV, INTRA-PROCEDURE ONCE, 1 dose, Starting on Tania 10/11/22 at 0818, Until Tania 10/11/22 at 0819, Routine 0819 (Contrast Given - Provider: Sohail Quiroz, RT) morphine 4 mg/mL injection 4 mg (COMPLETED) 4 mg, IV, ONE TIME ONLY, 1 dose, On Tania 10/11/22 at 0745, Routine 0749 (Given - Provid er: Kendell Chase, EMT-P) ondansetron (ZOFRAN) 4 mg/2 mL injection 4 mg (COMPLETED) 4 mg, IV, ONE TIME ONLY, 1 dose, On Tania 10/11/22 at 0745, Routine 0749 (Given - Provid er: Kendell Chase, EMT-P) sodium chloride 0.9% bolus solution 1,000 mL (COMPLETED) 1,000 mL, IV, ONE TIME ONLY, 1 dose, On Tania 10/11/22 at 0745, at 2,000 mL/hr, Administer over 30 Minutes, Routine 0749 (New Bag - Prov ider: Kendell Chase, EMT-P)0819 (Due: Stopped - Provider: Kendell Chase EMT-P) sodium chloride flush injection 10 mL 10 mL, IV, SEE ADMIN INSTRUCTIONS, Starting on Tania 10/11/22 at 0819, Until Tania 10/11/22 at 1218, Routine 0819 (Given - Provid er: Sohail Quiroz, RT) documented in this encounter
--- OUTSIDE RECORDS SUMMARY | 2024-05-26 02:45 | XMS_ITS | Encounter Summary ---
Author Organization [email or web address] Address [address] [place] [address] Care Team Providers Care Silver Recovery Operator Name Role Phone Unavailable Primary Care Provider Unavailabl e Encounter Details Date Type Department Care Team (Late st Contact Info) Description 08/09/2023 External Device Data [facility] ABSTRACTION Provider, Abstract [...]
--- OUTSIDE RECORDS SUMMARY | 2024-05-26 02:45 | XMS_ITS | Encounter Summary ---
Author Organization [employer] Address [address] [place] [address] Care Team Providers Care Planetarium Technician Name Role Phone Unavailable Primary Care Provider Unavailabl e Encounter Details Date Type Department Care Team (Late st Contact Info) Description 06/25/2023 External Device Data [facility] ABSTRACTION Provider, Abstract [...]
--- OUTSIDE RECORDS SUMMARY | 2024-05-26 02:45 | XMS_ITS | Encounter Summary ---
Author Organization [employer] Address [address] [place] [address] Care Team Providers Care Game Bird Farmer Name Role Phone Unavailable Primary Care Provider Unavailabl e Encounter Details Date Type Department Care Team (Late st Contact Info) Description 07/18/2023 External Device Data [facility] ABSTRACTION Provider, Abstract [...]
--- OUTSIDE RECORDS SUMMARY | 2024-05-26 02:45 | XMS_ITS | Encounter Summary ---
Author Organization [employer] Address [address] [place] [address] Care Team Providers Care Research Manufacturing Operator Name Role Phone Unavailable Primary Care Provider Unavailabl e Encounter Details Date Type Department Care Team (Late st Contact Info) Description 05/28/2023 External Device Data [facility] ABSTRACTION Provider, Abstract [...]
--- OUTSIDE RECORDS SUMMARY | 2024-05-26 02:45 | XMS_ITS | Encounter Summary ---
Author Organization [employer] Address [address] [place] [address] Care Team Providers Care Tractor Trailer Mechanic Name Role Phone Unavailable Primary Care Provider Unavailabl e Encounter Details Date Type Department Care Team (Late st Contact Info) Description 09/11/2023 External Device Data [facility] ABSTRACTION Provider, Abstract [...]
--- OUTSIDE RECORDS SUMMARY | 2024-05-26 02:45 | XMS_ITS | Clinical Summary ---
Author Organization [facility] Address [address] [place] [address] Phone Care Team Providers Care Jewel Bearing Driller Name Role Phone Unavailable Primary Care Provider Unavailabl e Allergies No known active allergies Medications Medication Sig Dispensed Refills Start Date End Date Status escitalopram oxalate (LEXAPRO) 20 mg tablet Take 20 mg by mouth daily. Active ondansetron (ZOFRAN ODT) 4 mg Tablet, Rapid Dissolve Take 1 Tablet (4 mg) by mouth every 8 hours as needed for Nausea/Emesis. Dissolve tablet on top of tongue, then swallow with saliva. 20 Tablet 10/11/2022 Active capsaicin (ZOSTRIX) 0.025 % Cream Apply to affected area 3 times daily. 50 Gram 10/11/2022 Active Social History Tobacco Use Types Packs/Day Years [...] Mass Index 36.94 10/11/2022 7:20 AM CDT Plan of Treatment Health Maintenance Due Date Last Done Comments HEPATITIS B VACCINES (3 of 3 - 3-dose series) 06/12/1999 04/17/1999, 1998 DTAP/TDAP/TD VACCINES (5 - Tdap) 2009 12/28/2003, 01/15/2000, 04/17/1999, Additional history exists HPV VACCINES (1 - Male 3-dose series) 2013 INFLUENZA VACCINE (#1) 2023 PNEUMOCOCCAL VACCINE 0-64 YEARS Aged Out No longer eligible based on patient's age to complete this topic
--- OUTSIDE RECORDS SUMMARY | 2024-05-26 02:45 | XMS_ITS | Encounter Summary ---
Author Organization [email or web address] Care Team Providers Care Accounts Payable Clerk Name Role Phone Provider, None Primary Care Provider Unavailabl e Encounter Details Date Type Department Care Team (Latest Contact Info) Description 04/24/2024 Travel Social History Tobacco Use Types Packs/Day Years Used Date Smoking Tobacco: Never Assessed [facility] Utilities Answer Date Recorded In the [...] any time in the past 12 m [facility] [place] were you homeless or living in a care home (including now)? No 04/24/2024 Sex and Gender Information Value Date Recorded Sex Assigned at Not on file Legal Sex Male 5:01 AM CDT Gender Identity Not on file Sexual Orientation Not on file documented as of this encounter Functional Status * Within the [...] Doss RN documented as of this encounter Plan of Treatment Not on file documented as of this encounter Visit Diagnoses Not on filedocumented in this encounter Care Teams Accounts Payable Clerk Relationship Specialty Start Date End Date Provider, Sayda MAZARIEGOS PCP - General 01/15/22 documented as of this encounter
--- OUTSIDE RECORDS SUMMARY | 2024-05-26 02:45 | XMS_ITS | Encounter Summary ---
Author Organization [employer] Address [address] [place] [address] Care Team Providers Care Woodwind Instrument Repairer Name Role Phone Unavailable Primary Care Provider Unavailabl e Encounter Details Date Type Department Care Team (Late st Contact Info) Description 07/12/2023 External Device Data [facility] ABSTRACTION Provider, Abstract [...]
--- OUTSIDE RECORDS SUMMARY | 2024-05-26 02:46 | XMS_ITS | Referral Summary ---
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 - 05/18/2024 2:27 PM [facility] [place] [address] Discharge Disposition: Left without being seen from Last 3 Months Allergies No known active allergies Medications pregabalin (LYRICA) 100 mg capsule Take 1 capsule (100 mg total) by mouth 2 (two) times a day Active sucralfate (CARAFATE) 1 gram tabletIndications: Gastric Ulcer Take 1 tablet (1 g total) by mouth 4 (four) times a day as needed (ulcers) Active famotidine (PEPCID) 20 mg tablet Take 1 tablet (20 mg total) by mouth nightly as needed for indigestion or heartburn 30 tablet 11/17/[address] (PROTONIX) 40 mg EC tabletIndications: Stress Ulcer Prophylaxis Take 1 tablet (40 mg total) by mouth 2 (two) times a day 60 tablet 11/17/19 24 Active ondansetron ODT (ZOFRAN-ODT) 4 mg disintegrating tablet Take 1 tablet (4 mg total) by mouth every 8 (eight) hours as needed for nausea or vomiting 30 tablet 11/17/19 24 Active Active Problems Problem Noted Date Diagnosed Date Opiate withdrawal 11/14/2023 Social History Tobacco Use Types Packs/Day Years Used Date Smoking Tobacco: Never Smokeless Tobacco: Never Alcohol Use Standard Drinks/Week Comments Not Currently 0 (1 standard drink = 0.6 oz pur e alcohol) [facility] Utilities Answer Date Recorded In the past 12 months has th e electric, gas, oil, or water company threatened to shut off services in your home? No 11/15/2023 Social Connection and Isolation Panel [NHANES] A nswer Date Recorded In a typical week, how many times do you talk on the phone with family, friends, or neighbors? Three times a week 11/15/2023 How often do you get togethe r with friends or relatives? Three times a week 11/15/2023 How often do you attend chur ch or episcopalian services? Never 11/15/2023 Do you belong to any clubs o r organizations such as sikh groups, unions, fraternal or athletic groups, or school groups? No 11/15/2023 How often do you attend meet ings of the clubs or organizations you belong to? Never 11/15/2023 Are you , , di vorced, , never , or living with a partner? Never 11/15/2023 Overall Financial Resource Strain (CARDIA) Answe r Date Recorded How hard is it for you to pa y for the very basics like food, housing, medical care, and heating? Not very hard 11/15/2023 Hunger Vital Sign Answer Date Recorded Within the past 12 months, y ou worried that your food would run out before you got the money to buy more. Never true 11/15/19 24 Within the past 12 months, t he food you bought just didn't last and you didn't have money to get more. Never true 11/15/2023 PRAPARE - Transportation Answer Date Re corded In the past 12 months, has l ack of transportation kept you from medical appointments or from getting medications? No 10/26 In the past 12 months, has l ack of transportation kept you from meetings, work, or from getting things needed for daily living? No 11/15/2023 Housing Stability Vital Sign Answer Caleb e Recorded In the last 12 months, was t here a time when you were not able to pay the mortgage or rent on time? No 11/15/2023 In the past 12 months, how m any times have you moved where you were living? 0 11/15/2023 At any time in the past 12 m [facility], were you homeless or living in a detention (including now)? No 11/15/2023 Personal Safety Answer Date Recorded Have you ever been in or are you currently in a harmful physical or emotional relationship or is someone making you feel afraid or unsafe? 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 Gender Identity Not on file Sexual Orientation Not on file Last Filed Vital Signs Vital Sign Reading Time Taken Comments Blood Pressure 135/93 11/17/2023 7:43 AM CDT Pulse 76 11/17/2023 7:43 AM CDT Temperature 36.7 ??C (98.1 ??F) 11/17/2023 7:43 AM CD T Respiratory Rate 18 11/17/2023 7:43 AM CDT Oxygen Saturation 100% 11/17/2023 7:43 AM CDT Inhaled Oxygen Concentration - - Weight 135.6 kg (299 lb) 11/14/2023 6:14 PM CDT Height 185.4 cm (6' 1 ) 11/14/2023 6:14 PM CDT Body Mass Index 39.45 11/14/2023 6:14 PM CDT Plan of Treatment Not on file Procedures Procedure Name Priority Date/Time Associated Diagnosis Comments HEPATITIS PANEL, ACUTE Routine 11/14/2023 8:48 PM CDT from Last 3 Months or Most Recently Relevant to Health Maintenance Results * Hepatitis panel, acute Blood (11/14/2023 8:48 PM CDT) Hep A IgM Nonreactive Nonreactive Comment: Interpretive Data: If Hep A IgM Ab is reported as Equivocal, a new sample should be drawn in two weeks for testing. Current interpretive data was last revised on 19. Hep B core IgM Nonreactive Nonreactive M[facility]A Comment: Interpretive Data If HepB Core IgM Ab is reported as Equivocal, a new sample should be drawn in two weeks for testing. Current interpretive data was last revised on 19. Hep C Ab Nonreactive Nonreactive M[facility]THA Comment: Antibodies to HCV not detected. Does NOT exclude the possibility of recent exposure to HCV. Current interpretive data was last revised on 22 Interpretive Data Nonreactive: Antibodies to HCV not detected. Does NOT exclude the possibility of recent exposure to HCV. Equivocal: Equivocal for HCV antibodies. Supplemental molecular testing will be automatically performed to determine infection status in accordance with current CDC screening recommendations. ?? Reactive: Positive for HCV antibodies. ??This may represent current or past HCV infection. Supplemental molecular testing will be automatically performed to determine ??current infection status in accordance with current CDC screening recommendations. Interpretive data was last revised on 2019. HepBsAg Nonreactive Nonreactive [facility] LUTHER Blood 11/14/2023 8:48 PM CDT 11/14/2023 9:19 PM CDT us Javon Garcia MD LAB MICROBIOLOGY - [facility] ORDERABLES Final Result [facility] [address] [facility] [place] [address] from Last 3 Months or Most Recently Relevant to Health Maintenance Insurance [facility] AETNA [facility] CIGNA AETNA [facility] Advance Directives For more information, please contact: [phone] * Full Code (Latest Code Status on File) Date Activated Date Inactivated Comments 11/14/2023 4:42 PM 11/17/2023 5:47 PM Care Teams Bow Maker Production Relationship Specialty Start Date End Date Osbaldo Hong MD [address] [place] [address] PCP - General 01/13/19
--- OUTSIDE RECORDS SUMMARY | 2024-05-26 02:46 | XMS_ITS | Encounter Summary ---
Author Organization [facility] Healthcare Address [address] [place] [address] Care Team Providers Care Crystal Growing Technician Name Role Phone Osbaldo Hong MD Primary Care Provider [phone]- [phone] Reason for Visit * Reason Comments Nausea Encounter Details Date Type Department Care Team (Late st Contact Info) Description 11/09/2021 9:47 AM CDT - 11/09/2021 9:48 AM CDT Emergency [address] [address] Discharge Disposition: Left without being seen Social History Tobacco Use Types Packs/Day Years Used Date Smoking Tobacco: Never Smokeless Tobacco: Never Alcohol Use Standard Drinks/Week Comments Yes 0 (1 standard drink = 0.6 oz pur e alcohol) Sex and Gender Information Value Date Recorded Sex Assigned at Not on file 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 Gender Identity Not on file Sexual Orientation Not on file documented as of this encounter Last Filed Vital Signs Vital Sign Reading Time Taken Comments Blood Pressure 142/82 11/09/2021 7:01 AM CDT Pulse 76 11/09/2021 7:01 AM CDT Temperature 36.6 ??C (97.8 ??F) 11/09/2021 7:01 AM C DT Respiratory Rate 20 11/09/2021 7:01 AM CDT Oxygen Saturation 98% 11/09/2021 7:01 AM CDT Inhaled Oxygen Concentration - - Weight 140.6 kg (310 lb) 11/09/2021 7:01 AM CDT Height 185.4 cm (6' 1 ) 11/09/2021 7:01 AM CDT Body Mass Index 40.9 11/09/2021 7:01 AM CDT documented in this encounter Medications at Time of Discharge amitriptyline (ELAVIL) 10 mg tablet 08/26/2018 4 azithromycin (Zithromax Z-Lazaro) 250 mg tablet Take 1 tablet (250 mg total) by mouth daily Take first 2 tablets together, then 1 every day until finished. 6 tablet 06/25/2021 4 benzonatate (TESSALON) 100 mg capsuleIndicatio ns:Cough Take 1 capsule (100 mg total) by mouth every 8 (eight) hours 21 capsule 06/25/2021 4 chlordiazePOXIDE -clidinium (LIBRAX) 5-2.5 mg per capsule 08/28/2018 4 famotidine (PEPCID) 20 mg tablet Take 1 tablet (20 mg total) by mouth nightly as needed for indigestion or heartburn 0 07/23/2018 4 omeprazole (PriLOSEC) 20 mg capsule Take 20 mg by mouth 2 (two) times a day 0 06/02/2018 4 prochlorperazine (COMPAZINE) 5 mg tablet TAKE 1 PILL BY MOUTH EVERY 6 HOURS X 1 MONTH (30D) NEEDED 0 07/30/2018 4 documented as of this encounter Discharge Disposition Disposition Code Departure Means Destination Left without being seen documented in this encounter ED Notes * Wanda Avelar RN - 11/09/2021 9:46 AM CDT [facility] Wanda Avelar RN 11/09/21 0946 * Gus Luna RN - 11/09/2021 7:18 AM CDT I woke up yesterday very nauseated and it hasnt gone away. I threw up 6 or 7 times yesterday. I normally take zofran and I ran out of it. Pt reports hx of hyper emesis from cannabis use but ran out of zofran at home this week. documented in this encounter Plan of Treatment Not on file documented as of this encounter Procedures Procedure Name Priority Date/Time Associated Diagnosis Comments EGFR STAT 11/09/2021 7:31 AM CDT DIFFERENTIAL AUTO STAT 11/09/2021 7:3 1 AM CDT CBC WITH AUTO DIFFERENTIAL STAT 11/09/2021 7:31 AM CDT COMPREHENSIVE METABOLIC PANEL STAT 11/09/2021 7:31 AM CDT documented in this encounter Results * eGFR (11/09/2021 7:31 AM CDT) eGFR 133 mL/min/1. 73 m2 [facility]A LUTHER Comment: Interpretive Data Reference Interval Normal ?>/= 90 mL/min/1.73m2 Mildly decreased* ? 60 - 89 mL/min/1.73m2 Mildly to moderately decreased ?45 - 59 mL/min/1.73m2 Moderately to severely decreased ??30 - 44 mL/min/1.73m2 Severely decreased ?15 - 29 mL/min/1.73m2 Kidney Failure ?< 15 ??mL/min/1.73m2 *Relative to young adult level Estimated glomerular filtration rate is determined by the 2020 CKD-EPI equation recommended by the National Kidney Foundation (A Unifying Approach to GFR Estimation: Recommendations of the NKF-ASK Task Force on Reassessing the Inclusion of Race in Diagnosing Kidney Disease, JASN 202). The CKD-EPI equation should not be used for patients with unstable renal function and has not been validated in children and those over 70. Current interpretive data was last reviewed 2021. Blood 11/09/2021 7:31 AM CDT 11/09/2021 7:34 AM CDT us Darlin Kent DO LAB BLOOD ORDERABLES Final Resu lt MIRTHA [address] [facility] Department [place] [address] * (ABNORMAL) Differential, auto (11/09/2021 7:31 AM CDT) Neutrophil abs 7.8(H) 1.7 - 6.5 K/cumm [facility] Imm gran abs 0.1 0.0 - 0.1 K/cumm [facility] Lymphocyte abs 2.4 0.8 - 3.3 K/cumm [facility] Monocyte abs 0.6 0.2 - 0.8 K/cumm [facility] Eosinophil abs 0.4 0.0 - 0.5 K/cumm [facility] Basophil abs 0.1 0.0 - 0.1 K/cumm [facility] Neutrophil pct 69.0 % [facility] Comment: Interpretive Data Percent cell count reference ranges are not reported, since discordance with absolute values may lead to misinterpretation of CBC data. Current Interpretive Data was last revised on 2017. Imm gran pct 0.7 % [facility] Comment: Interpretive Data Percent cell count reference ranges are not reported, since discordance with absolute values may lead to misinterpretation of CBC data. Current Interpretive Data was last revised on 2017. Lymphocyte pct 21.1 % [facility] Comment: Interpretive Data Percent cell count reference ranges are not reported, since discordance with absolute values may lead to misinterpretation of CBC data. Current Interpretive Data was last revised on 2017. Monocyte pct 5.4 % [facility] Comment: Interpretive Data Percent cell count reference ranges are not reported, since discordance with absolute values may lead to misinterpretation of CBC data. Current Interpretive Data was last revised on 2017. Eosinophil pct 3.4 % [facility] Comment: Interpretive Data Percent cell count reference ranges are not reported, since discordance with absolute values may lead to misinterpretation of CBC data. Current Interpretive Data was last revised on 2017. Basophil pct 0.4 % [facility] Comment: Interpretive Data Percent cell count reference ranges are not reported, since discordance with absolute values may lead to misinterpretation of CBC data. Current Interpretive Data was last revised on 2017. Blood 11/09/2021 7:31 AM CDT 11/09/2021 7:34 AM CDT Darlinolga lidia Kent DO LAB BLOOD ORDERABLES Final Resu lt [facility] [address] [facility] Department [place] [address] * (ABNORMAL) Comprehensive metabolic panel (11/09/2021 7:31 AM CDT) Sodium 139 135 - 145 mmol/L [facility] Potassium, pl 3.8 3.3 - 4.9 mmol/L [facility] Chloride 104 97 - 110 mmol/L [facility] CO2 24 22 - 32 mmol/L [facility] Anion gap 11 2 - 15 mmol/L [facility] BUN 9 8 - 25 mg/dL [facility] Creatinine 0.70(L) 0.80 - 1.30 mg/dL [facility] Glucose 109 70 - 199 mg/dL [facility] Comment: Interpretive Data Fasting glucose >/= 126 mg/dl is diagnostic for diabetes. ?? Fasting is defined as no caloric intake for at least 8 hours. Fasting glucose between 100 mg/dl to 125 mg/dl is diagnostic of prediabetes. In a patient with classic symptoms of hyperglycemia or hyperglycemic crisis, a random glucose >/= 200 mg/dl is diagnostic for diabetes. In the absence of unequivocal hyperglycemia, results should be confirmed by repeat testing. The classification and Diagnosis of Diabetes Diabetes Care 2017;40 (Suppl. 1):S11. Current interpretive data was last revised 2017. Calcium 9.5 8.5 - 10.3 mg/dL [facility] Bilirubin, total 0.6 0.1 - 1.2 mg/dL [facility] Protein, pl 7.0 6.5 - 8.5 g/dL [facility] Albumin 4.1 3.5 - 5.0 g/dL [facility] Alk phos 96 40 - 130 Units/L [facility] ALT 27 7 - 55 Units/L [facility] AST 18 10 - 50 Units/L [facility] Blood 11/09/2021 7:31 AM CDT 11/09/2021 7:34 AM CDT Darlin Kent LAB BLOOD ORDERABLES Final Resu lt Performing Organization Address [facility] Co de Phone Number MIRTHA [address] [employer] [place] [address] * (ABNORMAL) CBC with auto differential (11/09/2021 7:31 AM CDT) WBC 11.4(H) 3.8 - 9.9 K/cumm [facility] Hgb 15.0 13.0 - 17.5 g/dL [facility] Hct 45.1 38.9 - 50.3 % [facility] Plt 266 150 - 400 K/cumm [facility] MPV 10.2 9.1 - 12.3 fL [facility] RBC 5.41 4.30 - 5.80 M/cumm [facility] MCV 83.4 81.3 - 96.4 fL [facility] MCH 27.7 27.1 - 33.3 pg [facility] MCHC 33.3 32.3 - 35.7 g/dL [facility] RDW CV 13.1 11.1 - 14.9 % [facility] RDW SD 39.4 35.7 - 48.1 fL [facility] NRBC abs 0.00 0.00 - 0.01 K/cumm [facility] Blood 11/09/2021 7:31 AM CDT 11/09/2021 7:34 AM CDT Darlin Kent DO LAB BLOOD ORDERABLES Final Resu lt Performing Organization Address [facility] Co de Phone Number MIRTHA [address] [employer] [place] [address] documented in this encounter Visit Diagnoses Not on filedocumented in this encounter Administered Medications Inactive Administered Medications - up to 3 most recent administrations Medication Order MAR Action Action Date Dose Rate Site ondansetron ODT (ZOFRAN-ODT) disintegrating tablet 4 mg 4 mg, oral, Once, On Tania 11/09/21 at 0722, For 1 dose Given 11/09/2021 7:24 AM CDT 4 mg documented in this encounter Active and Recently Administered Medications Times are shown in CDT. Scheduled Medication Order 11/07/2021 11/08/2021 11/09/2021 ondansetron ODT (ZOFRAN-ODT) disintegrating tablet 4 mg (COMPLETED) 4 mg, oral, Once, On Tania 11/09/21 at 0722, For 1 dose 0724 (Given - Provid er: Gus Luna RN) documented in this encounter Orders Medications Ordered That Sahil ht Not Have Been Administered Count Last Ordered Date First Ordered Date ondansetron ODT (ZOFRAN-ODT) disintegrating tablet 4 mg 1 11/09/2021 documented in this encounter Care Teams Crystal Growing Technician Relationship Specialty Start Date End Date Osbaldo Hong MD [address] [place] [address] PCP - General 01/13/19 documented as of this encounter
--- OUTSIDE RECORDS SUMMARY | 2024-05-26 02:46 | XMS_ITS | Encounter Summary ---
Author Organization [facility] Healthcare Address [address] [place] [address] Care Team Providers Care Teacher Physically Impaired Name Role Phone Osbaldo Hong MD Primary Care Provider [phone] Reason for Visit * Reason Comments Withdrawal * Auth/Cert (Routine) Specialty Diagnoses / Procedures Referred By Contac t Referred To Contact Diagnoses Opiate withdrawal (HCC) Vomiting and diarrhea Opiate abuse, episodic (HCC) Procedures NA Referral ID Status Reason Start Date Expiration Date Visits Re quested Visits Authorized [id number] 1 1 Encounter Details Date Type Department Care Team (Late st Contact Info) Description 11/14/2023 3:29 PM CDT - 11/17/2023 1:40 PM CDT Hospital Encounter [address] [id number] Jessica De Anda MD [address] [place] [address] Javon Apple MD [address] [place] [id number] Marcin Lugo MD [address] [place] [id number] Opiate withdrawal (HCC) (Primary Dx); Opiate abuse, episodic (HCC); Vomiting and diarrhea Discharge Disposition: Discharge to home or self care Social History Tobacco Use Types Packs/Day Years Used Date Smoking Tobacco: Never Smokeless Tobacco: Never Alcohol Use Standard Drinks/Week Comments Not Currently 0 (1 standard drink = 0.6 oz pur e alcohol) [facility] Utilities Answer Date Recorded In the past 12 months has [employer], gas, oil, or water [employer] threatened to shut off services in your [...] often do you attend chur ch or spiritism services? Never 11/15/2023 Do you belong to any clubs o r organizations such as scientology groups, unions, fraternal or athletic groups, or [...] any time in the past 12 m ont, were you homeless or living in a correction (including now)? No 11/15/2023 Personal Safety Answer Date Recorded Have you ever been in or are you currently in a harmful physical or emotional relationship or is someone making you feel afraid or unsafe? 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 Gender Identity Not on file Sexual Orientation [...] Mass Index 39.45 11/14/2023 6:14 PM CDT documented in this encounter Discharge Summaries * Marcin Lugo MD - 11/17/2023 1:05 PM CDT Inpatient Discharge Summary Patient Name - Aj Lunsford Patient Age - 23 yrs Patient - [id number] [facility] - [id number] Document Creation Date: 11/17/2023 Admitting Provider, : Javon Garcia MD Discharge Provider, MD: Marcin Lugo MD Primary Care Physician at Discharge: Osbaldo Hong MD [phone] Admission Date: 11/14/2023 Discharge Date/time: 11/17/2023 Admission Location: [facility] LOS - LOS: 3 days DETAILS OF HOSPITAL STAY Hospital Problems/Diagnoses Principal Problem: Opiate withdrawal (HCC) Reason for Hospitalization: Opiate withdrawal Hospital Course: This is a 23-year-old male who has past medical history of polysubstance abuse including opiate presented with complaint of acute withdrawal. Patient uses Percocet and marijuana. His last use was 2 days before admission complaining of nausea vomiting diarrhea malaise. Patient was interested in detox program as outpatient. Patient was admitted started on clonidine p.r.n.. Patient improved significantly. Complaining of nausea but he has cyclic vomiting syndrome and stomach issues why he says dropped by. Added Protonix and sucralfate. Nausea improved. Will discharge patient home today. Patient was followed with outpatient therapy. A/P: Principal Problem: Opiate withdrawal (HCC) Resolved Problems: No resolved hospital problems. Assessment and plan 11/15/2023 1. Opiate withdrawal present on admission Continue clonidine continue withdrawal protocol Medical stabilization team is following. Patient is agreeable to enroll in detox program 2. Leukocytosis likely reactive. Resolved. WBC count is 7.7 today. UA is negative. No signs of infection. 3. Nausea: On Zofran added Reglan. 4. Polysubstance abuse. Patient was agreeable with rehab. Discharge Details Physical Exam at Discharge: Discharge Condition: good Pulse: 76 Resp: 18 BP: 135/93 Temp: 36.7 ??C (98.1 ??F) Weight: 135.6 kg (299 lb) Pertinent Exam Findings at Discharge: General appearance: Not in acute distress lying comfortably in the bed Rate and rhythm to soft nontender bowel sounds present nervous oriented x3 Discharge Disposition: Discharge to home or self care Code Status at Discharge: Full Code Active Issues & Recommended Plan for Follow-up: Allergies: Patient has no known allergies. Discharge Medications: Your medication list START taking these medications Instructions Last Dose Given Next Dose Due pantoprazole DR 40 mg EC tablet Commonly known as: PROTONIX Replaces: omeprazole 20 mg capsule 40 mg, oral, 2 times daily CONTINUE taking these medications Instructions Last Dose Given Next Dose Due famotidine 20 mg tablet Commonly known as: PEPCID 20 mg, oral, Nightly PRN ondansetron ODT 4 mg disintegrating tablet Commonly known as: ZOFRAN-ODT 4 mg, oral, Every 8 hours PRN pregabalin 100 mg capsule Commonly known as: LYRICA 100 mg, oral, 2 times daily sucralfate 1 gram tablet Commonly known as: CARAFATE 1 g, oral, 4 times daily PRN STOP taking these medications omeprazole 20 mg capsule Commonly known as: PriLOSEC Replaced by: pantoprazole DR 40 mg EC tablet omeprazole 40 mg capsule Commonly known as: PriLOSEC Where to Get Your Medications These medications were sent to [facility]/pharmacy #[id number] - [place], [place] - [address] [facility] [address] [facility] [id number] famotidine 20 mg tablet ondansetron ODT 4 mg disintegrating tablet pantoprazole DR 40 mg EC tablet Time Spent in Discharge Process: I have spent 35 minutes on discharge planning activities. Test Results Pending at Discharge (If Blank, None Found): Pending Labs Order Current Status Magnesium In process Phosphorus In process Operative Procedures Performed (If Blank, None Found): Outpatient Follow-Up: Please schedule an appointment with the following provider(s): No follow-up provider specified. ANCILLARY INFORMATION Other Procedures & Diagnostic Tests: No results found. Recent Labs: Recent Labs Lab Units 11/17/2342011/16/2334211/15/23 0941 WBC K/cumm 12.3* 10.4* 7.7 HEMOGLOBIN g/dL 14.5 13.2 13.8 HEMATOCRIT % 43.3 39.5 41.2 PLATELETS K/cumm 244 233 231 Recent Labs Lab Units 11/17/2342011/16/2334211/15/23 0941 WBC K/cumm 12.3* 10.4* 7.7 HEMOGLOBIN g/dL 14.5 13.2 13.8 HEMATOCRIT % 43.3 39.5 41.2 PLATELETS K/cumm 244 233 231 NEUTROS PCT % 59.5 61.6 62.4 LYMPHS PCT % 30.4 28.8 28.7 MONOS PCT % 7.8 7.4 5.9 EOS PCT % 1.6 1.5 2.3 Recent Labs Lab Units 11/14/23205611/14/23204711/14/23 1521 SODIUM mmol/L -- 141 141 POTASSIUM PLASMA mmol/L -- 3.5 4.0 CHLORIDE mmol/L -- 108 108 CO2 mmol/L -- 24 22 BUN SERUM mg/dL -- 13 12 CREATININE mg/dL -- 0.68* 0.74* [id number] mL/min/1.73 m2 -- >90 >90 GLUCOSE mg/dL -- 122 104 POC GLUCOSE MONITOR mg/dL 131 -- -- CALCIUM mg/dL -- 8.7 9.3 ALBUMIN g/dL -- 3.9 4.3 PHOSPHORUS PLASMA mg/dL -- -- 2.1* Recent Labs Lab Units 11/14/23205611/14/23204711/14/23 1521 SODIUM mmol/L -- 141 141 POTASSIUM PLASMA mmol/L -- 3.5 4.0 CHLORIDE mmol/L -- 108 108 CO2 mmol/L -- 24 22 ANIONGAP mmol/L -- 9 11 GLUCOSE mg/dL -- 122 104 POC GLUCOSE MONITOR mg/dL 131 -- -- BUN SERUM mg/dL -- 13 12 CREATININE mg/dL -- 0.68* 0.74* CALCIUM mg/dL -- 8.7 9.3 ALBUMIN g/dL -- 3.9 4.3 ALK PHOS Units/L -- 80 82 ALT Units/L -- 18 21 AST Units/L -- 16 20 BILIRUBIN TOTAL mg/dL -- 0.5 0.7 Recent Labs Lab Units 11/14/23204711/14/23 1521 ALK PHOS Units/L 80 82 BILIRUBIN TOTAL mg/dL 0.5 0.7 TOTAL PROTEIN g/dL 6.1* 7.2 ALT Units/L 18 21 AST Units/L 16 20 Recent Labs Lab Units 11/14/23 1521 MAGNESIUM mg/dL 1.7 Lab Results Component Value Date GLUCOSE 131 11/14/2023 GLUCOSE 122 11/14/2023 GLUCOSE 104 11/14/2023 Implant: Implants No active implants to display in this view. General Precautions (If Blank, None Found): Isolation Status: No active isolations Nutritional Status and in-house recommendations: Dietary Orders (From admission, onward) Start Ordered 11/14/231828 Adult Diet Regular Diet effective now Question: (MHB/MHE) Diet type Answer: Regular 11/14/231827 Anticoagulation Indication: INR: No results found for requested labs within last 30 days. Warfarin Administrations (last 168 hours) None Oxygen Status: O2 Therapy for the past 12 hrs: O2 Therapy 11/17/23 1100 None (Room air) 11/17/23 0700 None (Room air) 11/17/23 0322 None (Room air) Wound Care Instructions Other Instructions Special Instructions Complete abstinence from substance abuse Follow-up with outpatient rehab Active LDAs (If Blank, None Found): Peripheral IV 11/14/23 20 G Right Antecubital (Active) Placement Date/Time: 11/14/231656 Type: Angiocath Size (Gauge): 20 G Location Orientation: Right Location: Antecubital Patient Emergency Contact: Immunization Status at Discharge There is no immunization history on file for this patient. Marcin Lugo MD documented in this encounter Medications at Time of Discharge famotidine (PEPCID) 20 mg tablet Take 1 tablet (20 mg total) by mouth nightly as needed for indigestion or heartburn 30 tablet 11/17/2023 ondansetron ODT (ZOFRAN-ODT) 4 mg disintegrating tablet Take 1 tablet (4 mg total) by mouth every 8 (eight) hours as needed for nausea or vomiting 30 tablet 11/17/[address] (PROTONIX) 40 mg EC tabletIndications:S tress Ulcer Prophylaxis Take 1 tablet (40 mg total) by mouth 2 (two) times a day 60 tablet 11/17/2023 pregabalin (LYRICA) 100 mg capsule Take 1 capsule (100 mg total) by mouth 2 (two) times a day sucralfate (CARAFATE) 1 gram tabletIndications:G astric Ulcer Take 1 tablet (1 g total) by mouth 4 (four) times a day as needed (ulcers) documented as of this encounter Ordered Prescriptions Prescription Sig Dispense Quantity Refills Last Filled Start Date End Date ondansetron ODT (ZOFRAN-ODT) 4 mg disintegrating tablet Take 1 tablet (4 mg total) by mouth every 8 (eight) hours as needed for nausea or vomiting 30 tablet 11/17/[address] (PROTONIX) 40 mg EC tabletIndications:S tress Ulcer Prophylaxis Take 1 tablet (40 mg total) by mouth 2 (two) times a day 60 tablet 11/17/2023 famotidine (PEPCID) 20 mg tablet Take 1 tablet (20 mg total) by mouth nightly as needed for indigestion or heartburn 30 tablet 11/17/2023 documented in this encounter Discharge Disposition Disposition Code Departure Means Destination Comment s Discharge to home or self care documented in this encounter Progress Notes * Marcin Lugo MD - 11/16/2023 2:53 PM CDT Images from the original note were not included. General Medicine Daily Progress SUBJECTIVE 11/15/2023 I have seen and examined the patient today. Patient was complaining of nausea. He was tearful. He wants to get better and agreeable to go to rehab. 11/16/2023 I have seen and examined the patient today. Patient is nauseous this morning. Patient was stated that he has nausea in the morning and he has cyclic vomiting syndrome OBJECTIVE Vitals: 24hr Min/Max: Temp Min: 36.5 ??C (97.7 ??F) Max: 37 ??C (98.6 ??F) Pulse Min: 68 Max: 75 BP Min: 119/68 Max: 134/90 Resp Min: 18 Max: 18 SpO2 Min: 98 % Max: 100 % Most Recent : Vitals: 11/16/23 1139 BP: 124/82 Pulse: 75 Resp: 18 Temp: 36.9 ??C (98.4 ??F) SpO2: 98% I/O last 2 completed shifts: In: 986 [I.V.:986] Out: 200 [Urine:200] I/O this shift: In: 600 [P.O.:600] Out: - Physical Exam: General appearance: Not in acute distress Eyes: EOMI, MANOJ, sclare non icteric Neck: supple, no nuchal ridigity, no gross carotid bruits appreciated Pharynx: No gross oral lesion, tongue midline, mucosa moist Lungs CTA Heart: [id number], no significant murmur or gallop Abd: +BS, Non Tender, Non distended, No gross hepatomegaly Lower Ext: No gross edema, pedal artery pulses are palpable bilaterally Neuro: No new deficits appreciated Musculoskeletal: no gross joint erythema, edema, tenderness Skin: No new change Lab/Current Medication Review: Reviewed Recent Results (from the past 24 hour(s)) CBC with auto differential Collection Time: 11/16/23 3:43 AM Result Value Ref Range WBC 10.4 (H) 3.8 - 9.9 K/cumm Hgb 13.2 13.0 - 17.5 g/dL Hct 39.5 38.9 - 50.3 % Plt 233 150 - 400 K/cumm MPV 11.1 9.1 - 12.3 fL RBC 4.71 4.30 - 5.80 M/cumm MCV 83.9 81.3 - 96.4 fL MCH 28.0 27.1 - 33.3 pg MCHC 33.4 32.3 - 35.7 g/dL RDW CV 12.6 11.1 - 14.9 % RDW SD 38.5 35.7 - 48.1 fL NRBC abs 0.00 0.00 - 0.01 K/cumm Differential, auto Collection Time: 11/16/23 3:43 AM Result Value Ref Range Neutrophil abs 6.4 1.5 - 6.5 K/cumm Imm gran abs 0.0 0.0 - 0.1 K/cumm Lymphocyte abs 3.0 0.8 - 3.3 K/cumm Monocyte abs 0.8 0.2 - 0.8 K/cumm Eosinophil abs 0.2 0.0 - 0.5 K/cumm Basophil abs 0.0 0.0 - 0.1 K/cumm Neutrophil pct 61.6 % Imm gran pct 0.3 % Lymphocyte pct 28.8 % Monocyte pct 7.4 % Eosinophil pct 1.5 % Basophil pct 0.4 % Imaging Current Facility-Administered Medications Medication Dose Route Frequency Provider Last Rate Last Admin acetaminophen (TYLENOL) tablet 650 mg 650 mg oral Q6H PRN Javon Apple MD 650 mg at 11/16/23 0130 [START ON 11/19/2023] cloNIDine (CATAPRES) tablet 0.1 mg 0.1 mg oral QID PRN Javon Apple MD Or [START ON 11/19/2023] cloNIDine (CATAPRES) tablet 0.2 mg 0.2 mg oral QID PRN Javon Apple MD [START ON 11/21/2023] cloNIDine (CATAPRES) tablet 0.1 mg 0.1 mg oral BID PRN Javon Apple MD Or [START ON 11/21/2023] cloNIDine (CATAPRES) tablet 0.1 mg 0.1 mg oral QID PRN Javon Apple MD cloNIDine (CATAPRES) tablet 0.2 mg 0.2 mg oral QID PRN Javon Apple MD 0.2 mg at 11/14/23 2312 Or cloNIDine (CATAPRES) tablet 0.3 mg 0.3 mg oral QID PRN Javon Apple MD enoxaparin (LOVENOX) syringe 40 mg 40 mg subcutaneous Daily-2100 Javon Apple MD 40 mgat 11/15/232117 loperamide (IMODIUM) capsule 2 mg 2 mg oral Q4H PRN Javon Apple MD loperamide (IMODIUM) capsule 4 mg 4 mg oral Once PRN Javon Apple MD metoclopramide (REGLAN) 5 mg/mL injection 10 mg 10 mg intravenous Q6H PRN Marcin Lugo MD 10 mg at 11/15/23 0817 ondansetron ODT (ZOFRAN-ODT) disintegrating tablet 4 mg 4 mg oral TID PRN Javon Apple MD 4 mg at 11/15/23 2302 Or ondansetron (ZOFRAN) injection 4 mg 4 mg intravenous TID PRN Javon Apple MD 4 mg at 11/16/[address] (PROTONIX) extended release tablet 40 mg 40 mg oral BID Javon Apple MD 40 mg at 11/16/23 0828 potassium, sodium phosphates (PHOS-NAK) 280-160-250 mg packet 1 packet 1 packet oral TID AC Marcin Lugo MD 1 packet at 11/16/23 1205 pregabalin (LYRICA) capsule 100 mg 100 mg oral BID Marcin Lugo MD sucralfate (CARAFATE) tablet 1 g 1 g oral QID Marcin Lugo MD A/P: Principal Problem: Opiate withdrawal (HCC) Resolved Problems: No resolved hospital problems. Assessment and plan 11/15/2023 1. Opiate withdrawal present on admission Continue clonidine continue withdrawal protocol Medical stabilization team is following. Patient is agreeable to enroll in detox program 2. Leukocytosis likely reactive. Resolved. WBC count is 7.7 today. UA is negative. No signs of infection. 3. Nausea: On Zofran added Reglan. 4. Polysubstance abuse. Patient was agreeable with rehab. Assessment and plan 11/16/23 1. Opiate withdrawal Present on admission On p.r.n. clonidine Patient was still nauseated. Patient did not require any clonidine for last 48 hours. Patient wantsto go to outpatient follow-up 2. Nausea on Zofran and Reglan patient is on Protonix b.i.d.. I will add sucralfate which he takes at home. 3. Polysubstance abuse agreeable for outpatient rehab 4. History of cyclic vomiting syndrome. Patient was to go home. If patient remains stable will discharge patient home tomorrow Case discussed with Case Management and Ice Scraper Medical complexity/risk:low My total encounter time on 11/16/2023 was 25 minutes which was spent in the activities documented inthe note. This includes time spent prior to the visit and after the visit in direct care of the patient. This time does not include time spent in any separately reportable services. Voice recognition software [employer] Direct may have been used dictate and transcribe this document. Grant Specialist variances may occur. Despite proofreading, typographical errors may occur. Marcin Lugo MD 11/16/2023 2:53 PM * Marcin Lugo MD - 11/15/2023 7:32 PM CDT Images from the original note were not included. General Medicine Daily Progress SUBJECTIVE 11/15/2023 I have seen and examined the patient today. Patient was complaining of nausea. He was tearful. He wants to get better and agreeable to go to rehab. OBJECTIVE Vitals: 24hr Min/Max: Temp Min: 36.5 ??C (97.7 ??F) Max: 37 ??C (98.6 ??F) Pulse Min: 54 Max: 87 BP Min: 104/65 Max: 131/74 Resp Min: 18 Max: 20 SpO2 Min: 98 % Max: 100 % Most Recent : Vitals: 11/15/23 1554 BP: 120/70 Pulse: 69 Resp: 18 Temp: 36.7 ??C (98.1 ??F) SpO2: 98% I/O last 2 completed shifts: In: 1086 [P.O.:100; I.V.:986] Out: 575 [Urine:575] No intake/output data recorded. Physical Exam: General appearance: Not in acute distress Eyes: EOMI, MANOJ, sclare non icteric Neck: supple, no nuchal ridigity, no gross carotid bruits appreciated Pharynx: No gross oral lesion, tongue midline, mucosa moist Lungs CTA Heart: [id number], no significant murmur or gallop Abd: +BS, Non Tender, Non distended, No gross hepatomegaly Lower Ext: No gross edema, pedal artery pulses are palpable bilaterally Neuro: No new deficits appreciated Musculoskeletal: no gross joint erythema, edema, tenderness Skin: No new change Lab/Current Medication Review: Reviewed Recent Results (from the past 24 hour(s)) Hepatitis panel, acute Blood Collection Time: 11/14/23 8:48 PM Specimen: Blood Result Value Ref Range Hep A IgM Nonreactive Nonreactive Hep B core IgM Nonreactive Nonreactive Hep C Ab Nonreactive Nonreactive HepBsAg Nonreactive Nonreactive HIV 1/2 Antibody plus p24 Antigen Blood Collection Time: 11/14/23 8:48 PM Specimen: Blood Result Value Ref Range HIV 1/2 ab + p24 ag Nonreactive Nonreactive Comprehensive metabolic panel Collection Time: 11/14/23 8:48 PM Result Value Ref Range Sodium 141 135 - 145 mmol/L Potassium, pl 3.5 3.3 - 4.9 mmol/L Chloride 108 97 - 110 mmol/L CO2 24 22 - 32 mmol/L Anion gap 9 2 - 15 mmol/L BUN 13 6 - 25 mg/dL Creatinine 0.68 (L) 0.80 - 1.30 mg/dL Glucose 122 70 - 199 mg/dL Calcium 8.7 8.5 - 10.3 mg/dL Bilirubin, total 0.5 0.1 - 1.2 mg/dL Protein, pl 6.1 (L) 6.5 - 8.5 g/dL Albumin 3.9 3.5 - 5.0 g/dL Alk phos 80 40 - 130 Units/L ALT 18 7 - 55 Units/L AST 16 10 - 50 Units/L eGFR Collection Time: 11/14/23 8:48 PM Result Value Ref Range eGFR >90 >=60 mL/min/1.73 m2 POCT glucose Collection Time: 11/14/23 8:57 PM Result Value Ref Range Glucose, POC 131 70 - 199 mg/dL Drugs of Abuse Screen, Urine without Confirmation Collection Time: 11/14/23 9:52 PM Result Value Ref Range Amphetamine, ur Not Detected CutOff 500ng/mL Barbiturates, ur Not Detected CutOff 200ng/mL Benzodiazepines, ur Not Detected CutOff 100ng/mL Cannabinoids, ur Screen Positive, presumptive (A) CutOff 50 ng/mL Cocaine, ur Not Detected CutOff 150ng/mL Fentanyl, Ur Not Detected CutOff 5 ng/mL Methadone, ur Not Detected CutOff 300ng/mL Opiates, ur Not Detected CutOff 300ng/mL Oxycodone, ur Screen Positive, presumptive (A) CutOff 100ng/mL Phencyclidine, ur Not Detected CutOff 25 ng/mL Urine Creatinine 257 mg/dL Urinalysis reflex to microscopic and culture Urine Collection Time: 11/15/23 8:50 AM Specimen: Urine Result Value Ref Range Color, ur Yellow Yellow Clarity, ur Clear Clear Specific gravity, ur 1.030 1.003 - 1.030 pH, urine 6.0 Protein, ur ql Negative Negative Glucose, ur ql Negative Negative Ketones, ur Negative Negative Bilirubin, ur Negative Negative Blood, ur Negative Negative Urobilinogen, ur <2.0 <2.0 mg/dL Nitrite, ur Negative Negative Leukocyte esterase, ur Negative Negative UA reflex comment Reflex conditions for microscopic UA and culture not met. Drugs of Abuse Screen, Urine without Confirmation Collection Time: 11/15/23 8:50 AM Result Value Ref Range Amphetamine, ur Not Detected CutOff 500ng/mL Barbiturates, ur Not Detected CutOff 200ng/mL Benzodiazepines, ur Not Detected CutOff 100ng/mL Cannabinoids, ur Screen Positive, presumptive (A) CutOff 50 ng/mL Cocaine, ur Not Detected CutOff 150ng/mL Fentanyl, Ur Not Detected CutOff 5 ng/mL Methadone, ur Not Detected CutOff 300ng/mL Opiates, ur Not Detected CutOff 300ng/mL Oxycodone, ur Screen Positive, presumptive (A) CutOff 100ng/mL Phencyclidine, ur Not Detected CutOff 25 ng/mL Urine Creatinine 338 mg/dL CBC with auto differential Collection Time: 11/15/23 9:41 AM Result Value Ref Range WBC 7.7 3.8 - 9.9 K/cumm Hgb 13.8 13.0 - 17.5 g/dL Hct 41.2 38.9 - 50.3 % Plt 231 150 - 400 K/cumm MPV 10.6 9.1 - 12.3 fL RBC 4.92 4.30 - 5.80 M/cumm MCV 83.7 81.3 - 96.4 fL MCH 28.0 27.1 - 33.3 pg MCHC 33.5 32.3 - 35.7 g/dL RDW CV 12.9 11.1 - 14.9 % RDW SD 39.5 35.7 - 48.1 fL NRBC abs 0.00 0.00 - 0.01 K/cumm Differential, auto Collection Time: 11/15/23 9:41 AM Result Value Ref Range Neutrophil abs 4.8 1.5 - 6.5 K/cumm Imm gran abs 0.0 0.0 - 0.1 K/cumm Lymphocyte abs 2.2 0.8 - 3.3 K/cumm Monocyte abs 0.5 0.2 - 0.8 K/cumm Eosinophil abs 0.2 0.0 - 0.5 K/cumm Basophil abs 0.0 0.0 - 0.1 K/cumm Neutrophil pct 62.4 % Imm gran pct 0.4 % Lymphocyte pct 28.7 % Monocyte pct 5.9 % Eosinophil pct 2.3 % Basophil pct 0.3 % Imaging Current Facility-Administered Medications Medication Dose Route Frequency Provider Last Rate Last Admin acetaminophen (TYLENOL) tablet 650 mg 650 mg oral Q6H PRN Javon Apple MD 650 mg at 11/15/23 1847 [START ON 11/19/2023] cloNIDine (CATAPRES) tablet 0.1 mg 0.1 mg oral QID PRN Javon Apple MD Or [START ON 11/19/2023] cloNIDine (CATAPRES) tablet 0.2 mg 0.2 mg oral QID PRN Javon Apple MD [START ON 11/21/2023] cloNIDine (CATAPRES) tablet 0.1 mg 0.1 mg oral BID PRN Javon Apple MD Or [START ON 11/21/2023] cloNIDine (CATAPRES) tablet 0.1 mg 0.1 mg oral QID PRN Javon Apple MD cloNIDine (CATAPRES) tablet 0.2 mg 0.2 mg oral QID PRN Javon Apple MD 0.2 mg at 11/14/23 2312 Or cloNIDine (CATAPRES) tablet 0.3 mg 0.3 mg oral QID PRN Javon Apple MD enoxaparin (LOVENOX) syringe 40 mg 40 mg subcutaneous Daily-2100 Javon Apple MD 40 mgat 11/14/23 2046 ketorolac (TORADOL) 30 mg/mL injection 15 mg 15 mg intravenous Q8H PRN Javon Apple MD15 mg at 11/15/23 0450 loperamide (IMODIUM) capsule 2 mg 2 mg oral Q4H PRN Javon Apple MD loperamide (IMODIUM) capsule 4 mg 4 mg oral Once PRN Javon Apple MD metoclopramide (REGLAN) 5 mg/mL injection 10 mg 10 mg intravenous Q6H PRN Marcin Lugo MD 10 mg at 11/15/23 0817 ondansetron ODT (ZOFRAN-ODT) disintegrating tablet 4 mg 4 mg oral TID PRN Javon Apple MD 4 mg at 11/15/23 1110 Or ondansetron (ZOFRAN) injection 4 mg 4 mg intravenous TID PRN Javon Apple MD 4 mg at 11/15/[address] (PROTONIX) extended release tablet 40 mg 40 mg oral BID Javon Apple MD 40 mg at 11/15/23 0817 potassium, sodium phosphates (PHOS-NAK) 280-160-250 mg packet 1 packet 1 packet oral TID AC Marcin Lugo MD 1 packet at 11/15/23 1711 A/P: Principal Problem: Opiate withdrawal (HCC) Resolved Problems: No resolved hospital problems. Assessment and plan 11/15/2023 1. Opiate withdrawal present on admission Continue clonidine continue withdrawal protocol Medical stabilization team is following. Patient is agreeable to enroll in detox program 2. Leukocytosis likely reactive. Resolved. WBC count is 7.7 today. UA is negative. No signs of infection. 3. Nausea: On Zofran added Reglan. 4. Polysubstance abuse. Patient was agreeable with rehab. Case discussed with Case Management and Ice Scraper Medical complexity/risk:low My total encounter time on 11/15/2023 was 25 minutes which was spent in the activities documented inthe note. This includes time spent prior to the visit and after the visit in direct care of the patient. This time does not include time spent in any separately reportable services. Voice recognition software [employer] Direct may have been used dictate and transcribe this document. Grant Specialist variances may occur. Despite proofreading, typographical errors may occur. Marcin Lugo MD 11/15/2023 7:32 PM * Luis Miguel Perera, [facility] - 11/14/2023 5:42 PM CDT Pharmacy Medication Reconciliation Note Patient Aj Lunsford is a 23 y.o. male who presents to [facility] [facility] ED-ED06 for admission. The prior to admission home medication list was reviewed by pharmacy. Prior to Admission medications Medication Sig Start Date End Date Taking? Authorizing Provider famotidine (PEPCID) 20 mg tablet Take 1 tablet (20 mg total) by mouth nightly as needed for indigestion or heartburn 07/23/18 Yes Sherri Ye MD omeprazole (PriLOSEC) 40 mg capsule Take 1 capsule (40 mg total) by mouth daily Yes Sherri Ye MD ondansetron ODT (ZOFRAN-ODT) 4 mg disintegrating tablet Take 1 tablet (4 mg total) by mouth every 8(eight) hours as needed for nausea or vomiting 10/15/23 Yes Kiko Merchant MD pregabalin (LYRICA) 100 mg capsule Take 1 capsule (100 mg total) by mouth 2 (two) times a day Yes Sherri Ye MD sucralfate (CARAFATE) 1 gram tablet Take 1 tablet (1 g total) by mouth 4 (four) times a day as needed (ulcers) Yes Sherri Ye MD The patient???s home medication list has been reconciled and updated as follows: - Orders that were discontinued: Old/ orders x 6 meds: prochlorperazine, omeprazole 20mg, Librax, benzonatate caps, Z-Lazaro, amitriptyline - last med rec done about 4 years ago (all of these are wrong/outdated) - Orders that were added: New/updated orders x 5 meds - all diff meds since last med rec done about 4 years ago - Orders that were changed (doses/frequency/formulation): None - Additional comments/recommendations: Pt very distressed and struggling to keep focused on interview; expresses fear of going through detox Pt able to recall most meds reviewed and states he has some stomach issues w/ ulcers and is in discomfort Claims he hasn't taken any meds at home in about the last 4-5 days; Recently prescribed some Suboxone but claims that he wants it removed from med list and doesn't want any while he is admitted. Denies any OTC med usage Sources of information for this medication reconciliation include: [place] Prescription Drug Monitoring (PDM) database, medication list, outpatient medical record, patient, pharmacy records, and prescription fill history Luis Miguel Perera RPh 11/14/2023 5:37 PM * Monik Duke - 11/14/2023 2:54 PM CDT Patient is enrolled in [facility] Detox program and has signed SDU consent forms. Dimension 1 (Acute Intoxication and/or Withdrawal Potential) Screening Clinical Opioid Withdrawal Scale For each item, write in the number that best describes the patient's signs or symptom. Rate on justthe apparent relationship to opiate withdrawal. For example: If heart rate is increased because the patient was jogging just prior to assessment, the increased pulse rate would not add to the score. Scores Resting Pulse Rate: Record Beats per Minute Measured after patient is sitting or lying for one minute [x]0 = pulse rate 80 or below []1 = pulse rate 81-100 []2 = pulse rate 101-120 []4 = pulse rate greater than 120 Sweating: Over Past 1/2 Hour not Accounted for by Room Temperature or Patient Activity []0 = no report of chills or flushing []1 = subjective report of chills or flushing [x]2 = flushed or observable moistness on face []3 = beads of sweat on brow or face [] 4 = sweat streaming off face Restlessness Observation During Assessment []0 = able to sit still []1 = reports difficulty sitting still, but is able to do so [x]3 = frequent shifting or extraneous movements of legs/arms []5 = Unable to sit still for more than a few seconds Pupil Size []0 = pupils pinned or normal size for room light [x]1 = pupils possibly larger than normal for room light []2 = pupils moderately dilated []5 = pupils so dilated that only the rim of the iris is visible. Bone or Joint Aches if Patient was Having Pain Previously, only the Additional Component Attributed to Opiate Withdrawal is Scored [x]0 = not present []1 = mild diffuse discomfort [] 2 = patient reports severe diffuse aching of joints/muscles []4 = patient is rubbing joints or muscles and is unable to sit still because of discomfort Runny Nose or Tearing Not Accounted for by Cold Symptoms or Allergies []0 = not present [x]1 = nasal stuffiness or unusually moist eyes []2 = nose running or tearing []4 = nose constantly running or tears streaming down cheeks GI Upset: Over Last 1/2 Hour []0 = no GI symptoms []1 = stomach cramps []2 = nausea or loose stool []3 = vomiting or diarrhea [x] 5 = multiple episodes of diarrhea or vomiting Tremor Observation of Outstretched Hands [x]0 = no tremor []1 = tremor can be felt, but not observed []2 = slight tremor observable []4 = gross tremor or muscle twitching Yawning Observation During Assessment [x]0 = no yawning []1 = yawning once or twice during assessment []2 = yawning three or more times during assessment []4 = yawning several times/minute Anxiety or Irritability []0 = None []1 = Patient reports increasing irritability or anxiousness [x]2 = Patient obviously irritable/anxious []4 = Patient so irritable or anxious that participation in the assessment is difficult Gooseflesh Skin [x]0 = skin is smooth []3 = piloerection of skin can be felt or hairs standing up on arms []5 = prominent piloerection Score: 5-12 = Mild 13-24 = Moderate 25-36 = Moderately Severe More than 36 = Severe Withdrawal Total score: 14 documented in this encounter H&P Notes * Karen Anderson Efraín, SENIOR PRINCIPAL SOFTWARE ENGINEER - 11/14/2023 4:56 PM CDT History and Physical CHIEF COMPLAINT Chief Complaint Patient presents with Withdrawal HPI Patient is a 23 y.o. male with history of polysubstance abuse who presents for chief complaint of withdrawal. History obtained per patient's medical records. Patient reports use of Percocet and marijuana. His last use was two days ago. He was recently started on suboxone, however abruptly stopped taking it due to side effects. He reports nausea, vomiting, diarrhea, malaise, abdominal pain from vomiting. He is interested in detox program. Pertinent vitals, labs, and diagnostics on admission: Blood pressure 131/82, pulse 79, [id number], SpO2 100%, temp 97.7??. WBC 10.0. CMP unremarkable. He was treated with normal saline 1000 mL bolus, Toradol 30 mg IV, Bentyl 20 mg p.o. in the ED. I agree to admit to inpatient for further evaluation and treatment. PAST MEDICAL HISTORY No past medical history on file. PAST SURGICAL HISTORY No past surgical history on file. ALLERGIES No Known Allergies FAMILY HISTORY family history is not on file. SOCIAL HISTORY Social History Tobacco Use Smoking status: Never Smokeless tobacco: Never Vaping Use Vaping status: Never Used Substance and Sexual Activity Alcohol use: Not Currently Drug use: Yes Types: Marijuana, Oxycodone Comment: suboxone Sexual activity: Not on file HOME MEDICATIONS Prior to Admission medications Medication Sig Start Date End Date Taking? Authorizing Provider amitriptyline (ELAVIL) 10 mg tablet 08/26/18 Provider, MD Sherri azithromycin (Zithromax Z-Lazaro) 250 mg tablet Take 1 tablet (250 mg total) by mouth daily Take first2 tablets together, then 1 every day until finished. 06/25/21 Deepti Eavns PA benzonatate (TESSALON) 100 mg capsule Take 1 capsule (100 mg total) by mouth every 8 (eight) hours 06/25/21 Deepti Evans PA chlordiazePOXIDE-clidinium (LIBRAX) 5-2.5 mg per capsule 08/28/18 Sherri Ye MD famotidine (PEPCID) 20 mg tablet Take 20 mg by mouth daily 07/23/18 Sherri Ye MD omeprazole (PriLOSEC) 20 mg capsule Take 20 mg by mouth 2 (two) times a day 06/02/18 Sherri Ye MD ondansetron ODT (ZOFRAN-ODT) 4 mg disintegrating tablet Take 1 tablet (4 mg total) by mouth every 8(eight) hours as needed for nausea or vomiting 10/15/23 Kiko Merchant MD prochlorperazine (COMPAZINE) 5 mg tablet TAKE 1 PILL BY MOUTH EVERY 6 HOURS X 1 MONTH (30D) NEEDED 07/30/18 Sherri Ye MD REVIEW OF SYSTEMS Review of Systems Constitutional: Positive for malaise/fatigue. Negative for chills and fever. Respiratory: Negative for shortness of breath. Cardiovascular: Negative for chest pain. Gastrointestinal: Positive for abdominal pain (From vomiting), diarrhea, nausea and vomiting. OBJECTIVE Temp Av.5 ??C (97.7 ??F) Min: 36.5 ??C (97.7 ??F) Max: 36.5 ??C (97.7 ??F) BP Min: 114/65 Max: 131/82 Pulse Av Min: 76 Max: 97 Resp Av Min: 22 Max: 22 SpO2 Av.5 % Min: 99 % Max: 100 % No intake/output data recorded. Weight: Wt Readings from Last 1 Encounters: 11/14/23 134.6 kg (296 lb 11.8 oz) PHYSICAL EXAM Physical Exam Constitutional: General: He is not in acute distress. Appearance: He is not toxic-appearing or diaphoretic. HENT: Head: Normocephalic and atraumatic. Eyes: General: No scleral icterus. Cardiovascular: Rate and Rhythm: Normal rate and regular rhythm. Pulmonary: Effort: Pulmonary effort is normal. No respiratory distress. Breath sounds: No wheezing, rhonchi or rales. Abdominal: General: There is no distension. Palpations: Abdomen is soft. Tenderness: There is abdominal tenderness (Mild, generalized). Musculoskeletal: Cervical back: Neck supple. Right lower leg: No edema. Left lower leg: No edema. Skin: General: Skin is warm and dry. Neurological: Mental Status: He is alert and oriented to person, place, and time. LAB/RADIOLOGY/DIAGNOSTIC: Recent Labs Lab Units 11/14/23 1521 WBC K/cumm 10.0* HEMOGLOBIN g/dL 15.1 HEMATOCRIT % 45.0 PLATELETS K/cumm 243 NEUTROS PCT % 70.9 LYMPHS PCT % 21.1 MONOS PCT % 5.7 EOS PCT % 1.7 Recent Labs Lab Units 11/14/23 1521 SODIUM mmol/L 141 POTASSIUM PLASMA mmol/L 4.0 CHLORIDE mmol/L 108 CO2 mmol/L 22 ANIONGAP mmol/L 11 GLUCOSE mg/dL 104 BUN SERUM mg/dL 12 CREATININE mg/dL 0.74* CALCIUM mg/dL 9.3 ALBUMIN g/dL 4.3 ALK PHOS Units/L 82 ALT Units/L 21 AST Units/L 20 BILIRUBIN TOTAL mg/dL 0.7 No results found for: TROPONINI No results found for: BNP Lab Results Component Value Date TSH 0.67 03/03/2018 LAB TREND CBC: Lab Results Component Value Date WBC 10.0 (H) 11/14/2023 HGB 15.1 11/14/2023 HCT 45.0 11/14/2023 BMP: Lab Results Component Value Date SODIUM 141 11/14/2023 POTASSIUM 4.0 11/14/2023 CHLORIDE 108 11/14/2023 CREATININE 0.74 (L) 11/14/2023 CALCIUM 9.3 11/14/2023 No results found for: BNP Lab Results Component Value Date ALKPHOS 82 11/14/2023 No results found for: MAGNESIUM Lab Results Component Value Date AST 20 11/14/2023 Lab Results Component Value Date ALT 21 11/14/2023 Radiology: Recent Results (from the past 72 hour(s)) CBC with auto differential Collection Time: 11/14/23 3:21 PM Result Value Ref Range WBC 10.0 (H) 3.8 - 9.9 K/cumm Hgb 15.1 13.0 - 17.5 g/dL Hct 45.0 38.9 - 50.3 % Plt 243 150 - 400 K/cumm MPV 11.1 9.1 - 12.3 fL RBC 5.40 4.30 - 5.80 M/cumm MCV 83.3 81.3 - 96.4 fL MCH 28.0 27.1 - 33.3 pg MCHC 33.6 32.3 - 35.7 g/dL RDW CV 12.8 11.1 - 14.9 % RDW SD 38.5 35.7 - 48.1 fL NRBC abs 0.00 0.00 - 0.01 K/cumm Comprehensive metabolic panel Collection Time: 11/14/23 3:21 PM Result Value Ref Range Sodium 141 135 - 145 mmol/L Potassium, pl 4.0 3.3 - 4.9 mmol/L Chloride 108 97 - 110 mmol/L CO2 22 22 - 32 mmol/L Anion gap 11 2 - 15 mmol/L BUN 12 6 - 25 mg/dL Creatinine 0.74 (L) 0.80 - 1.30 mg/dL Glucose 104 70 - 199 mg/dL Calcium 9.3 8.5 - 10.3 mg/dL Bilirubin, total 0.7 0.1 - 1.2 mg/dL Protein, pl 7.2 6.5 - 8.5 g/dL Albumin 4.3 3.5 - 5.0 g/dL Alk phos 82 40 - 130 Units/L ALT 21 7 - 55 Units/L AST 20 10 - 50 Units/L Differential, auto Collection Time: 11/14/23 3:21 PM Result Value Ref Range Neutrophil abs 7.1 (H) 1.5 - 6.5 K/cumm Imm gran abs 0.0 0.0 - 0.1 K/cumm Lymphocyte abs 2.1 0.8 - 3.3 K/cumm Monocyte abs 0.6 0.2 - 0.8 K/cumm Eosinophil abs 0.2 0.0 - 0.5 K/cumm Basophil abs 0.0 0.0 - 0.1 K/cumm Neutrophil pct 70.9 % Imm gran pct 0.3 % Lymphocyte pct 21.1 % Monocyte pct 5.7 % Eosinophil pct 1.7 % Basophil pct 0.3 % eGFR Collection Time: 11/14/23 3:21 PM Result Value Ref Range eGFR >90 >=60 mL/min/1.73 m2 ASSESSMENT AND PLAN Opiate withdrawal, present on admission (POA) Polysubstance use Start opioid withdrawal protocol Check EKG, urine drug screen Case management following Patient enrolled in [facility] program Leukocytosis, mild, POA WBC 10.0 on admission Urinalysis pending Monitor Obesity BMI 39.15 DVT prophylaxis: Lovenox GI prophylaxis: Protonix Estimated Length of Stay: Greater than 2 midnights Medical Decision Making: Moderate Code Status: Full code Advance Care Planning Advance Care Planning Conversation Pertinent diagnoses: Opiate withdrawal The patient and/or family consented to a voluntary Advance Care Planning conversation. Individuals present for the conversation: patient Summary of the conversation: Patient stated he would like CPR and intubation if indicated. Outcome of the conversation and documents completed (select all that apply): continue the current treatment plan and code status without modification I spent less than 16 minutes providing separately identifiable ACP services with the patient and/orsurrogate decision maker in a voluntary, in-person conversation discussing the patient's wishes andgoals as detailed in the above note. Karen Anderson NP CONSULTS None Karen Anderson NP 11/14/2023 4:56 PM Primary Care Physician: Osbaldo Hong MD Voice recognition software [employer] was used dictate and transcribe this document. Grant Specialist variances may occur. Despite proofreading, typographical errors may occur. Cosigned by Javon Apple MD at 11/14/2023 5:23 PM CDT Associated attestation - Javon Apple MD - 11/14/2023 5:23 PM CDT I have seen and examined the patient on 11/14/23. I agree with the findings and plan of care .. The patient is a 23-year-old male with past medical history of polysubstance abuse patient is addicted to opioids he was taking Percocet and Suboxone as per last admission to the hospital he started presented with vomiting diarrhea malaise and signs of withdrawal. The patient is agreeable to initiate withdrawal program and be referred to withdrawal program. We will start treatment with clonidine and monitor the patient for signs of worsening of his withdrawal documented in this encounter Nursing Notes * Lilliana Dixon RN - 11/17/2023 1:37 PM CDT Patient discharged in stable condition with personal belongings via wheelchair accompanied by hospital transporter. * Lilliana Dixon RN - 11/17/2023 7:38 AM CDT Patient medicated with zofran 4 mg IV for c/o nausea. * Lilliana Dixon RN - 11/16/2023 8:28 AM CDT Patient medicated with zofran 4 mg IV for c/o nausea. documented in this encounter ED Notes * Bessy Brown RN - 11/14/2023 6:02 PM CDT Report given to Karishma GOTTLIEB [address] [place] [address]. Pt to room with transport at this time. Bessy Brown RN 06/20/24 1804 * Jessica De Anda MD - 11/14/2023 4:37 PM CDT HPI Chief Complaint Patient presents with Withdrawal 23-YEAR-OLD MALE HISTORY OF OBESITY WITH A BMI OF 39, PERCOCET ABUSE RECENTLY STARTED ON SUBOXONE VIA A CLINIC AND THEN ABRUPTLY STOPPED BECAUSE HE DID NOT LIKE THE WAY IT MADE HIM FEEL. PATIENT NOW PRESENTS WITH A COMPLAINT OF ABDOMINAL CRAMPING, NOT FEELING WELL, FEELING HOT AND COLD, NONBLOODY EMESIS AND NONBLOODY DIARRHEA. Patient History: Patient Active Problem List Diagnosis Date Noted Opiate withdrawal (HCC) 11/14/2023 No past medical history on file. No past surgical history on file. No family history on file. Social History Tobacco Use Smoking status: Never Smokeless tobacco: Never Vaping Use Vaping status: Never Used Substance and Sexual Activity Alcohol use: Not Currently Drug use: Yes Types: Marijuana, Oxycodone Comment: suboxone Sexual activity: Not on file Social History Social History Narrative Not on file Review of Systems Review of Systems Constitutional: Positive for fatigue. Negative for chills and fever. Respiratory: Negative for shortness of breath. Cardiovascular: Negative for chest pain and palpitations. Gastrointestinal: Positive for abdominal pain, diarrhea, nausea and vomiting. All other systems reviewed and are negative. Physical Exam ED Triage Vitals Temp Pulse Resp BP SpO2 11/14/23 1355 11/14/23 1355 11/14/23 1355 11/14/23 1355 11/14/23 1530 36.5 ??C (97.7 ??F) 79 22 131/82 100 % Temp src Heart Rate Source Patient Position BP Location FiO2 (%) 11/14/23 1355 11/14/23 1355 11/14/23 1355 11/14/23 135 -- Oral Pulse Oximetry Sitting Right arm Height Height Method Weight Weight Method 11/14/23 1355 11/14/23 1355 11/14/23 1355 11/14/23 1355 1.854 m (6' 1 ) Stated 134.6 kg (296 lb 11.8 oz) Standing scale Physical Exam Vitals and nursing note reviewed. Constitutional: Appearance: He is obese. Comments: MALODOROUS AND UNKEMPT IN APPEARANCE HENT: Head: Atraumatic. Mouth/Throat: Mouth: Mucous membranes are dry. Eyes: General: No scleral icterus. Extraocular Movements: Extraocular movements intact. Cardiovascular: Rate and Rhythm: Normal rate and regular rhythm. Pulses: Normal pulses. Heart sounds: Normal heart sounds. Pulmonary: Effort: Pulmonary effort is normal. No respiratory distress. Breath sounds: Normal breath sounds. Abdominal: General: There is no distension. Palpations: Abdomen is soft. Tenderness: There is no abdominal tenderness. Musculoskeletal: General: Normal range of motion. Cervical back: Normal range of motion. Skin: General: Skin is warm and dry. Neurological: Mental Status: He is oriented to person, place, and time. MDM Medical Decision Making Risk Prescription drug management. Final diagnoses: Opiate withdrawal (HCC) Opiate abuse, episodic (HCC) Vomiting and diarrhea Jessica De Anda MD 11/14/23 1653 * Rayna Pedro RN - 11/14/2023 2:24 PM CDT Pt to ED from home, pt states he is withdrawing from suboxone and percocet last use 2 days ago. Pt states he is having nausea, vomitting and diarrhea. Pt last went to suboxone clinic last week. Pt endorses feeling very nauseous in triage. Respirations even/unlabored. documented in this encounter Miscellaneous Notes * Plan of [place] - Lilliana Dixon RN - 11/17/2023 1:27 PM CDT Problem: Discharge Planning Goal: Understanding discharge needs will improve Outcome: Progressing Flowsheets (Taken 11/17/2023 1326) Understanding of discharge needs will improve: Discuss information regarding discharge instructions Collaborate with case management interdisciplinary team Identify discharge barriers Identify discharge learning needs (meds, wound care, etc.) Problem: Lack of Knowledge Goal: Ability to develop a pain control plan will improve Outcome: Progressing Flowsheets (Taken 11/17/2023 1326) Ability to develop a pain control plan will improve: Explain causes of pain and how long pain can be expected to last Teach information regarding pain management Educate pain scale for assessing level of pain Teach notification to healthcare provider of episodes of pain Problem: Medication Goal: Satisfaction with pain management medication regimen will improve Outcome: Progressing Flowsheets (Taken 11/17/2023 1326) Satisfaction with pain management medication regimen will improve: Assess satisfaction with pain management regimen Provide administration of medications prior to painful activities Evaluate medication effects Manage analgesics Report inadequate pain control to healthcare provider Problem: Sensory Goal: Ability to identify factors that increase pain levels will improve while working to decrease the patient's pain levels Outcome: Progressing Flowsheets (Taken 11/17/2023 132) Ability to identify factors that increase pain levels will improve while working to decrease patients pain levels: Assess pain status Observe non-verbal cues of discomfort, such as restlessness, muscle tension, or altered vital signs Explore factors that precipitate, worsens, or relieves pain or discomfort Assess effects of pain control measures Problem: Coping Goal: Ability to cope will improve Outcome: Progressing Flowsheets (Taken 11/17/2023 132) Ability to cope will Improve: Encourage vebalization of feelings surrounding pain Provide emotional support Assess beliefs of pain Problem: Health Behavior Goal: Identification of resources available to assist in meeting health care needs will improve Outcome: Progressing Flowsheets (Taken 11/17/2023 132) Identification of resources available to assist in meeting health care needs will improve: Collaborate with all therapies Problem: Neurosensory Goal: Achieves stable or improved neurological status Outcome: Progressing Flowsheets (Taken 11/17/2023 1326) Achieves Stable or Improved Neurological Status: Assess for and report changes in neurological status Maintain blood pressure and fluid volume within ordered parameters to optimize cerebral perfusion and minimize risk of hemorrhage Monitor temperature, glucose, and sodium. Initiate appropriate interventions as ordered Problem: Gastrointestinal Goal: Minimal or absence of nausea and vomiting Outcome: Progressing Flowsheets (Taken 11/17/2023 132) Minimal or absence of nausea and vomiting: Assess gastrointestinal status Provide a clean room free from unpleasant odors Administer ordered antiemetic medications as needed, assess medication effects Monitor intake and output Monitor diagnostic test results Goal: Maintains or returns to baseline bowel function Outcome: Progressing Flowsheets (Taken 11/17/2023 1326) Maintains or returns to baseline bowel function: Assess bowel function, evaluate bowel sounds and signs of abdominal distention Administer ordered medications as needed Monitor amount, characteristics and/or frequency of stool Encourage mobilization and activity Encourage increased dietary fiber intake Problem: Fall Risk Goal: Ability to state ways to decrease the risk of falls will improve Outcome: Progressing Flowsheets (Taken 11/17/2023 1326) Ability to state ways to decrease the risk of falls will improve: Teach fall prevention measures Teach information regarding appropriate enviornmental changes Goal: Will remain free from falls Outcome: Progressing Flowsheets (Taken 11/17/2023 1326) Will remain free from falls: Assess risk factors for falls Implement fall prevention measures Collaborate with other disciplines Goal: Will remain free from injury from falls Outcome: Progressing Flowsheets (Taken 11/17/2023 1326) Will remain free from injury from falls: Provide safe environment for conduction of activities of daily living in hospital environment Goals: Clinical Goals for the Shift: safety, comfort Longterm Patient Centered Goal for Treatment: DC to outpt rehab Summary: Discharge orders rec'd. Discharge teaching given to patient with printed instructions, questions answered. Patient voiced understanding. * Plan of Care - Luda Atkins RN - 11/16/2023 10:28 PM CDT Goals: Clinical Goals for the Shift: safety, comfort Longterm Patient Centered Goal for Treatment: DC to outpt rehab Summary: * Plan of Care - Lilliana Dixon RN - 11/16/2023 6:16 PM CDT Problem: Discharge Planning Goal: Understanding discharge needs will improve 11/16/20231816 by Lilliana Dixon RN Outcome: Progressing Flowsheets (Taken 11/16/20231816) Understanding of discharge needs will improve: Collaborate with case management interdisciplinary team Discuss information regarding discharge instructions Identify discharge barriers Identify discharge learning needs (meds, wound care, etc.) 11/16/20231812 by Lilliana DixonCHERY Outcome: Progressing 11/16/20231755 by Lilliana Dixon RN Outcome: Progressing Flowsheets (Taken 11/16/20231755) Understanding of discharge needs will improve: Discuss information regarding discharge instructions Collaborate with case management interdisciplinary team Identify discharge barriers Identify discharge learning needs (meds, wound care, etc.) Problem: Lack of Knowledge Goal: Ability to develop a pain control plan will improve 11/16/20231816 by Lilliana Dixon RN Outcome: Progressing Flowsheets (Taken 11/16/20231816) Ability to develop a pain control plan will improve: Explain causes of pain and how long pain can be expected to last Teach information regarding pain management Educate pain scale for assessing level of pain Teach notification to healthcare provider of episodes of pain 11/16/20231812 by Lilliana Dixon RN Outcome: Progressing 11/16/20231755 by Lilliana Dixon RN Outcome: Progressing Flowsheets (Taken 11/16/20231755) Ability to develop a pain control plan will improve: Explain causes of pain and how long pain can be expected to last Teach information regarding pain management Educate pain scale for assessing level of pain Teach notification to healthcare provider of episodes of pain Problem: Medication Goal: Satisfaction with pain management medication regimen will improve 11/16/20231816 by Lilliana Dixon RN Outcome: Progressing Flowsheets (Taken 11/16/20231816) Satisfaction with pain management medication regimen will improve: Assess satisfaction with pain management regimen Evaluate medication effects Manage analgesics Report inadequate pain control to healthcare provider Provide administration of medications prior to painful activities 11/16/20231812 by Lilliana Dixon RN Outcome: Progressing 11/16/20231755 by Lilliana Dixon RN Outcome: Progressing Flowsheets (Taken 11/16/2023 175) Satisfaction with pain management medication regimen will improve: Assess satisfaction with pain management regimen Provide administration of medications prior to painful activities Evaluate medication effects Manage analgesics Report inadequate pain control to healthcare provider Problem: Sensory Goal: Ability to identify factors that increase pain levels will improve while working to decrease the patient's pain levels 11/16/20231816 by Lilliana Dixon RN Outcome: Progressing Flowsheets (Taken 11/16/20231816) Ability to identify factors that increase pain levels will improve while working to decrease patients pain levels: Assess pain status Observe non-verbal cues of discomfort, such as restlessness, muscle tension, or altered vital signs Explore factors that precipitate, worsens, or relieves pain or discomfort Assess effects of pain control measures 11/16/2023 181 by Lilliana Dixon RN Outcome: Progressing 11/16/20231755 by Lilliana Dixon RN Outcome: Progressing Flowsheets (Taken 11/16/20231755) Ability to identify factors that increase pain levels will improve while working to decrease patients pain levels: Assess pain status Observe non-verbal cues of discomfort, such as restlessness, muscle tension, or altered vital signs Explore factors that precipitate, worsens, or relieves pain or discomfort Assess effects of pain control measures Evaluate treatment plan for related conditions Problem: Coping Goal: Ability to cope will improve 11/16/20231816 by Lilliana Dixon RN Outcome: Progressing Flowsheets (Taken 11/16/20231816) Ability to cope will Improve: Encourage vebalization of feelings surrounding pain Provide emotional support Assess beliefs of pain 11/16/20231812 by Lilliana Dixon RN Outcome: Progressing 11/16/20231755 by Lilliana Dixon RN Outcome: Progressing Flowsheets (Taken 11/16/20231755) Ability to cope will Improve: Encourage vebalization of feelings surrounding pain Provide emotional support Assess beliefs of pain Problem: Health Behavior Goal: Identification of resources available to assist in meeting health care needs will improve 11/16/20231816 by Lilliana Dixon RN Outcome: Progressing Flowsheets (Taken 11/16/20231816) Identification of resources available to assist in meeting health care needs will improve: Collaborate with all therapies 11/16/20231812 by Lilliana Dixon RN Outcome: Progressing 11/16/20231755 by Lilliana Dixon RN Outcome: Progressing Flowsheets (Taken 11/16/20231755) Identification of resources available to assist in meeting health care needs will improve: Collaborate with all therapies Problem: Neurosensory Goal: Achieves stable or improved neurological status 11/16/20231816 by Lilliana Dixon RN Outcome: Progressing Flowsheets (Taken 11/16/20231816) Achieves Stable or Improved Neurological Status: Assess for and report changes in neurological status Maintain blood pressure and fluid volume within ordered parameters to optimize cerebral perfusion and minimize risk of hemorrhage Monitor temperature, glucose, and sodium. Initiate appropriate interventions as ordered 11/16/20231812 by Lilliana Dixon RN Outcome: Progressing 11/16/20231755 by Lilliana Dixon RN Outcome: Progressing Flowsheets (Taken 11/16/20231755) Achieves Stable or Improved Neurological Status: Assess for and report changes in neurological status Maintain blood pressure and fluid volume within ordered parameters to optimize cerebral perfusion and minimize risk of hemorrhage Monitor temperature, glucose, and sodium. Initiate appropriate interventions as ordered Problem: Gastrointestinal Goal: Minimal or absence of nausea and vomiting 11/16/20231816 by Lilliana Dixon RN Outcome: Progressing Flowsheets (Taken 11/16/20231816) Minimal or absence of nausea and vomiting: Assess gastrointestinal status Provide a clean room free from unpleasant odors Administer ordered antiemetic medications as needed, assess medication effects Provide appropriate dietary choices Monitor intake and output 11/16/20231812 by Lilliana Dixon RN Outcome: Progressing 11/16/20231755 by Lilliana Dixon RN Outcome: Progressing Flowsheets (Taken 11/16/20231755) Minimal or absence of nausea and vomiting: Assess gastrointestinal status Provide a clean room free from unpleasant odors Administer ordered antiemetic medications as needed, assess medication effects Provide appropriate dietary choices Monitor intake and output Goal: Maintains or returns to baseline bowel function 11/16/20231816 by Lilliana Dixon RN Outcome: Progressing Flowsheets (Taken 11/16/20231816) Maintains or returns to baseline bowel function: Assess bowel function, evaluate bowel sounds and signs of abdominal distention Encourage oral fluids to ensure adequate hydration Administer ordered medications as needed Monitor amount, characteristics and/or frequency of stool Encourage mobilization and activity Encourage increased dietary fiber intake 11/16/20231812 by Lilliana Dixon RN Outcome: Progressing 11/16/20231755 by Lilliana Dixon RN Outcome: Progressing Flowsheets (Taken 11/16/20231755) Maintains or returns to baseline bowel function: Assess bowel function, evaluate bowel sounds and signs of abdominal distention Encourage oral fluids to ensure adequate hydration Administer ordered medications as needed Monitor amount, characteristics and/or frequency of stool Encourage mobilization and activity Encourage increased dietary fiber intake Problem: Fall Risk Goal: Ability to state ways to decrease the risk of falls will improve 11/16/20231816 by Lilliana Dixon RN Outcome: Progressing Flowsheets (Taken 11/16/20231816) Ability to state ways to decrease the risk of falls will improve: Teach fall prevention measures Teach information regarding appropriate enviornmental changes 11/16/20231812 by Lilliana Dixon RN Outcome: Progressing 11/16/20231755 by Lilliana Dixon RN Outcome: Progressing Flowsheets (Taken 11/16/20231755) Ability to state ways to decrease the risk of falls will improve: Teach fall prevention measures Teach information regarding appropriate enviornmental changes Goal: Will remain free from falls 11/16/20231816 by Lilliana Dixon RN Outcome: Progressing Flowsheets (Taken 11/16/20231816) Will remain free from falls: Assess risk factors for falls Implement fall prevention measures Collaborate with other disciplines 11/16/20231812 by Lilliana Dixon RN Outcome: Progressing 11/16/20231755 by Lilliana Dixon RN Outcome: Progressing Flowsheets (Taken 11/16/20231755) Will remain free from falls: Assess risk factors for falls Implement fall prevention measures Collaborate with other disciplines Goal: Will remain free from injury from falls 11/16/20231816 by Lilliana Dixon RN Outcome: Progressing Flowsheets (Taken 11/16/20231816) Will remain free from injury from falls: Provide safe environment for conduction of activities of daily living in hospital environment 11/16/20231812 by Lilliana Dixon RN Outcome: Progressing 11/16/20231755 by Lilliana Dixon RN Outcome: Progressing Flowsheets (Taken 11/16/20231755) Will remain free from injury from falls: Provide safe environment for conduction of activities of daily living in hospital environment Goals: Clinical Goals for the Shift: safety, comfort Longterm Patient Centered Goal for Treatment: DC to outpt rehab Summary: Patient c/o nausea this morning resolved. COWS scores 2, 0, 1 this shift. Patient calm andcooperative with care. * Plan of Care - Lubna Burns RN - 11/16/2023 1:20 AM CDT Problem: Discharge Planning Goal: Understanding discharge needs will improve Outcome: Ongoing Flowsheets (Taken 11/16/2023 011) Understanding of discharge needs will improve: Identify discharge barriers Problem: Sensory Goal: Ability to identify factors that increase pain levels will improve while working to decrease the patient's pain levels Outcome: Ongoing Flowsheets (Taken 11/16/2023 011) Ability to identify factors that increase pain levels will improve while working to decrease patients pain levels: Assess pain status Encourage distraction activities Problem: Neurosensory Goal: Achieves stable or improved neurological status Outcome: Ongoing Flowsheets (Taken 11/16/2023 011) Achieves Stable or Improved Neurological Status: Assess for and report changes in neurological status Problem: Musculoskeletal Goal: Maintain proper alignment of affected body part Outcome: Ongoing Goal: Ability to perform activities at highest level will improve Outcome: Ongoing Goals: Clinical Goals for the Shift: safety, care and treatment compliance [employer] Patient Centered Goal for Treatment: DC to outpt rehab Summary: Continued symptom management * Plan of Care - Anupama Pickard RN - 11/15/2023 6:12 PM CDT Goals: Clinical Goals for the Shift: manage withdrawal S&S [employer] Patient Centered Goal for Treatment: DC to outpt rehab Summary: A&Ox4. VSS. Pt calm and cooperative this shift. Pt c/o nausea, no vomiting. Numerous PRN meds administered/ordered- minimally effective. Pt educated on side effects of withdrawal and that it will take some time to feel fully better. No emesis, just nausea. Pt had no further complaints this shift, will continue to monitor. Problem: Discharge Planning Goal: Understanding discharge needs will improve Outcome: Progressing Flowsheets (Taken 11/15/2023 0810) Understanding of discharge needs will improve: Discuss information regarding discharge instructions Identify discharge learning needs (meds, wound care, etc.) Collaborate with case management interdisciplinary team Arrange for needed discharge resources and transportation as appropriate Identify discharge barriers Problem: Lack of Knowledge Goal: Ability to develop a pain control plan will improve Outcome: Progressing Flowsheets (Taken 11/15/2023809) Ability to develop a pain control plan will improve: Explain causes of pain and how long pain can be expected to last Teach information regarding pain management Educate pain scale for assessing level of pain Teach notification to healthcare provider of episodes of pain Problem: Medication Goal: Satisfaction with pain management medication regimen will improve Outcome: Progressing Flowsheets (Taken 11/15/2023809) Satisfaction with pain management medication regimen will improve: Assess satisfaction with pain management regimen Evaluate medication effects Monitor patient controlled analgesia or anesthesia Manage analgesics Provide administration of medications prior to painful activities Report inadequate pain control to healthcare provider Problem: Sensory Goal: Ability to identify factors that increase pain levels will improve while working to decrease the patient's pain levels Outcome: Progressing Flowsheets (Taken 11/15/2023809) Ability to identify factors that increase pain levels will improve while working to decrease patients pain levels: Assess pain status Observe non-verbal cues of discomfort, such as restlessness, muscle tension, or altered vital signs Explore factors that precipitate, worsens, or relieves pain or discomfort Explore and collaborate with complimentary and alternative therapies Encourage distraction activities Provide hot or cold therapy Assess effects of pain control measures Evaluate treatment plan for related conditions Explore alternative treatments for pain from the patient's culture Problem: Coping Goal: Ability to cope will improve Outcome: Progressing Flowsheets (Taken 11/15/2023809) Ability to cope will Improve: Encourage vebalization of feelings surrounding pain Provide emotional support Assess beliefs of pain Problem: Health Behavior Goal: Identification of resources available to assist in meeting health care needs will improve Outcome: Progressing Flowsheets (Taken 11/15/2023809) Identification of resources available to assist in meeting health care needs will improve: Collaborate with all therapies Problem: Neurosensory Goal: Achieves stable or improved neurological status Outcome: Progressing Problem: Gastrointestinal Goal: Minimal or absence of nausea and vomiting Outcome: Progressing Flowsheets (Taken 11/15/2023809) Minimal or absence of nausea and vomiting: Assess gastrointestinal status Provide a clean room free from unpleasant odors Administer ordered antiemetic medications as needed, assess medication effects Provide appropriate dietary choices Monitor intake and output Provide fluid volume management Monitor diagnostic test results Discuss complementary and alternative therapies Nutrition consult to assist patient with adequate nutrition and appropriate food choices Goal: Maintains or returns to baseline bowel function Outcome: Progressing Flowsheets (Taken 11/15/2023809) Maintains or returns to baseline bowel function: Assess bowel function, evaluate bowel sounds and signs of abdominal distention Monitor amount, characteristics and/or frequency of stool Encourage oral fluids to ensure adequate hydration Administer IV fluids as ordered to ensure adequate hydration Administer ordered medications as needed Encourage mobilization and activity Nutrition consult to assist patient with appropriate food choices Encourage increased dietary fiber intake Problem: Fall Risk Goal: Ability to state ways to decrease the risk of falls will improve Outcome: Progressing Flowsheets (Taken 11/15/2023809) Ability to state ways to decrease the risk of falls will improve: Teach fall prevention measures Teach information regarding appropriate enviornmental changes Goal: Will remain free from falls Outcome: Progressing Flowsheets (Taken 11/15/2023809) Will remain free from falls: Assess risk factors for falls Implement fall prevention measures Collaborate with other disciplines Goal: Will remain free from injury from falls Outcome: Progressing Flowsheets (Taken 11/15/2023809) Will remain free from injury from falls: Provide safe environment for conduction of activities of daily living in hospital environment Problem: Musculoskeletal Goal: Return mobility to safest level of function Outcome: Progressing Flowsheets (Taken 11/15/2023809) Return mobility to safest level of function: Assess patient stability and activity tolerance for standing, transferring and ambulating with or without assistive devices Assist with transfers and ambulation using safe patient handling equipment as needed Obtain PT/OT consults as needed Instruct patient/family in ordered activity level Goal: Maintain proper alignment of affected body part Outcome: Progressing Flowsheets (Taken 11/15/2023809) Maintain proper alignment of affected body part: Support and protect limb and body alignment per provider's orders Goal: Return ADL status to a safe level of function Outcome: Progressing Flowsheets (Taken 11/15/2023809) Return activities of daily living status to a safe level of function: Assess patient's activities of daily living deficits and provide assistive devices as needed Obtain PT/OT consults as needed Assist and instruct patient to increase activity and self care Goal: Ability to perform activities at highest level will improve Outcome: Progressing Flowsheets (Taken 11/15/2023 0810) Ability to perform activities at highest level will improve: Collaborate with rehabilitation services Goal: Mobility, ROM and muscle strength will improve Outcome: Progressing Flowsheets (Taken 11/15/2023 0810) Mobility, ROM and muscle strength will improve: Provide proper bed mobility techniques Encourage mobilization to extent of ability Encourage prescribed exercise Provide positioning in correct anatomical alignment * Initial Assessments - Dang Monge RN - 11/15/2023 10:22 AM CDT CM Initial Assessment Interview Note Information Obtained From: Patient (11/15/23 1020) Admission Source: ED from home Impression: Pt presents to ED with nausea/vomiting/diarrhea. Pt reported in suboxone withdrawal. Medical stabilization consulted. COWs. Plan Includes: Pt plans to return home with grandparents at time of discharge. He is independent with ADLs. Pt does not use any medical equipment. 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 Pt interested in outpatient resources/follow up as arranged by PRS. Pt denies any other needs at this time. Primary Source of Transportation: Does the patient need discharge transport arranged?: No (self or family) (11/15/23 1020) Health Insurance Coverage: Primary Coverage Payor Plan Insurance Group Employer/Plan Group [employer]ICAID [employer] [facility] Payor Plan Address Payor Plan Phone Number Payor Plan Fax Number Effective Dates [address] 09/25/2023 - None Entered [facility] [id number] Subscriber Name Subscriber Date Member ID AJ LUNSFORD 2000 [id number] Pharmacy: [id number] [place], [place] - [address] [facility] [address] Primary Care Provider: Osbaldo Hong MD Prior to Admission: Functional Status: Independent with ADLs Primary Caregiver: Self Support System: Family members Home Care Services: No Outpatient Services: No Durable Medical Equipment: None Living Arrangements: Family members Type of Residence: Private residence Does patient wish to return to care facility?: Unable to assess Steps in home?: Yes, Outside of home, Yes, Inside home Number of steps inside: 12 steps Number of steps outside: 4 steps Medication management: Independent (11/14/23 5263) SDOH: Transportation: In the past 12 months, has lack of transportation kept you from medical appointments or from getting medications?: No In the past 12 months, has lack of transportation kept you from meetings, work, or from getting things needed for daily living?: No (11/15/23 1021) Financial Resource: How hard is it for you to pay for the very basics like food, housing, medical care, and heating?: Not very hard (11/15/23 1021) Housing: In the last 12 months, was there a time when you were not able to pay the mortgage or rent on time?: No In the past 12 months, how many times have you moved where you were living?: 0 At any time in the past 12 months, were you homeless or living in a correction (including now)?: No (11/15/23 102) Utilities: No, (11/15/23 102) Social Connections: In a typical week, how many times do you talk on the phone with family, friends, or neighbors?: Three times a week How often do you get together with friends or relatives?: Three times a week How often do you attend scientology or spiritism services?: Never Do you belong to any clubs or organizations such as scientology groups, unions, fraternal or athletic groups, or school groups?: No How often do you attend meetings of the clubs or organizations you belong to?: Never Are you , , , , never , or living with a partner?: Never (11/15/23 1021) Food Insecurity: Within the past 12 months, you worried that your food would run out before you got the money to buymore.: Never true Within the past 12 months, the food you bought just didn't last and you didn't have money to get more.: Never true (11/15/23 1021) Potential discharge needs include: Home Health: None (11/15/23 1020) Behavioral Health Services: Behavioral Health Services: No (11/15/23 1020) Anticipated Level of Care: Anticipated discharge level of care: Private residence Pt/Family agrees with Anticipated Level of Care: Yes (11/15/23 1020) Patient expects to be Discharged to: Private residence, (11/15/23 1020) Patient's Identified Problem/Goal Problem: Ensure acute medical needs are met and that patient has a safe discharge plan. Goal: Secure a discharge plan that patient/family are agreeable with and ensure patient has continuum of care. Case management will follow for discharge planning and send referrals as needed. Dang Monge RN * Plan of Care - Radha Cotton RN - 11/15/2023 6:21 AM CDT Goals: Clinical Goals for the Shift: manage withdrawal symptoms Summary: Pt had difficulty with nausea, abdominal pain, anxiety overnight. Clonidine, zofran, and pain meds given as ordered. 0500: Pt scored 12 on COWS scale this morning, but HR was sustained in the 50's; ZBIGNIEW Varghese notified and ordered to hold clonidine for now. Toradol and Zofran given for abdominal pain and nausea. Problem: Discharge Planning Goal: Understanding discharge needs will improve Outcome: Ongoing Problem: Lack of Knowledge Goal: Ability to develop a pain control plan will improve Outcome: Ongoing Problem: Medication Goal: Satisfaction with pain management medication regimen will improve Outcome: Ongoing Problem: Sensory Goal: Ability to identify factors that increase pain levels will improve while working to decrease the patient's pain levels Outcome: Ongoing Problem: Coping Goal: Ability to cope will improve Outcome: Ongoing Problem: Health Behavior Goal: Identification of resources available to assist in meeting health care needs will improve Outcome: Ongoing Problem: Neurosensory Goal: Achieves stable or improved neurological status Outcome: Ongoing Problem: Gastrointestinal Goal: Minimal or absence of nausea and vomiting Outcome: Ongoing Goal: Maintains or returns to baseline bowel function Outcome: Ongoing Problem: Fall Risk Goal: Ability to state ways to decrease the risk of falls will improve Outcome: Ongoing Goal: Will remain free from falls Outcome: Ongoing Goal: Will remain free from injury from falls Outcome: Ongoing documented in this encounter Plan of Treatment Pending Results Name Type Priority Associated Diagnoses Date /Time Magnesium Lab STAT 11/14/2023 3:2 1 PM CDT Phosphorus Lab STAT 11/14/2023 3:2 1 PM CDT Scheduled Orders Name Type Priority Associated Diagnoses Orde r Schedule Magnesium Lab STAT Once for 1 Occ urrences starting 11/14/2023 until 11/14/2023 Phosphorus Lab STAT Once for 1 Occ urrences starting 11/14/2023 until 11/14/2023 documented as of this encounter Procedures Procedure Name Priority Date/Time Associated Diagnosis Comments DIFFERENTIAL AUTO Routine 11/17/2023 4:2 1 AM CDT CBC WITH AUTO DIFFERENTIAL Routine 11/17/2023 4:21 AM CDT DIFFERENTIAL AUTO Routine 11/16/2023 3:4 3 AM CDT CBC WITH AUTO DIFFERENTIAL Routine 11/16/2023 3:43 AM CDT DIFFERENTIAL AUTO Routine 11/15/2023 9:4 1 AM CDT CBC WITH AUTO DIFFERENTIAL Routine 11/15/2023 9:41 AM CDT URINALYSIS AND REFLEX TO MICROSCOPIC AND CULTURE STAT 11/15/2023 8:50 AM CDT DRUGS OF ABUSE SCREEN, URINE WITHOUT CONFIRMATION STAT 11/15/2023 8:50 AM CDT DRUGS OF ABUSE SCREEN, URINE WITHOUT CONFIRMATION Routine 11/14/2023 9:52 PM CDT POCT GLUCOSE DEVICE Routine 11/14/2023 8 :57 PM CDT EGFR Routine 11/14/2023 8:48 PM CDT HIV 1/2 ANTIBODY PLUS P24 ANTIGEN Routine 11/14/2023 8:48 PM CDT HEPATITIS PANEL, ACUTE Routine 8:48 PM CDT COMPREHENSIVE METABOLIC PANEL Routine 11/14/2023 8:48 PM CDT ECG 12-LEAD STAT 11/14/2023 5:02 PM CDT EGFR STAT 11/14/2023 3:21 PM CDT DIFFERENTIAL AUTO STAT 11/14/2023 3:2 1 PM CDT CBC WITH AUTO DIFFERENTIAL STAT 11/14/2023 3:21 PM CDT PHOSPHORUS STAT 11/14/2023 3:21 PM CDT MAGNESIUM STAT 11/14/2023 3:21 PM CDT COMPREHENSIVE METABOLIC PANEL STAT 11/14/2023 3:21 PM CDT documented in this encounter Results * (ABNORMAL) Differential, auto (11/17/2023 4:21 AM CDT) Pathologist [facility] Neutrophil abs 7.3(H) 1.5 - 6.5 K/cumm Imm gran abs 0.1 0.0 - 0.1 K/cumm [facility] Lymphocyte abs 3.8(H) 0.8 - 3.3 K/cumm [facility] Monocyte abs 1.0(H) 0.2 - 0.8 K/cumm [facility] Eosinophil abs 0.2 0.0 - 0.5 K/cumm [facility] Basophil abs 0.0 0.0 - 0.1 K/cumm [facility] Neutrophil pct 59.5 % [facility] Comment: Interpretive Data Percent cell count reference ranges are not reported, since discordance with absolute values may lead to misinterpretation of CBC data. Current Interpretive Data was last revised on 2017. Imm gran pct 0.4 % [facility] Comment: Interpretive Data Percent cell count reference ranges are not reported, since discordance with absolute values may lead to misinterpretation of CBC data. Current Interpretive Data was last revised on 2017. Lymphocyte pct 30.4 % [facility] Comment: Interpretive Data Percent cell count reference ranges are not reported, since discordance with absolute values may lead to misinterpretation of CBC data. Current Interpretive Data was last revised on 2017. Monocyte pct 7.8 % [facility] Comment: Interpretive Data Percent cell count reference ranges are not reported, since discordance with absolute values may lead to misinterpretation of CBC data. Current Interpretive Data was last revised on 2017. Eosinophil pct 1.6 % [facility] Comment: Interpretive Data Percent cell count reference ranges are not reported, since discordance with absolute values may lead to misinterpretation of CBC data. Current Interpretive Data was last revised on 2017. Basophil pct 0.3 % [facility] Comment: Interpretive Data Percent cell count reference ranges are not reported, since discordance with absolute values may lead to misinterpretation of CBC data. Current Interpretive Data was last revised on 2017. Blood 11/17/2023 4:21 AM CDT 11/17/2023 4:52 AM CDT us Javon Garcia MD LAB BLOOD ORDERABLES Final Result [facility] [address] Department [place] [address] * (ABNORMAL) CBC with auto differential (11/17/2023 4:21 AM CDT) WBC 12.3(H) 3.8 - 9.9 K/cumm Hgb 14.5 13.0 - 17.5 g/dL [facility] Hct 43.3 38.9 - 50.3 % [facility] Plt 244 150 - 400 K/cumm [facility] MPV 10.9 9.1 - 12.3 fL [facility] RBC 5.19 4.30 - 5.80 M/cumm [facility] MCV 83.4 81.3 - 96.4 fL [facility] MCH 27.9 27.1 - 33.3 pg [facility] MCHC 33.5 32.3 - 35.7 g/dL [facility] RDW CV 12.6 11.1 - 14.9 % [facility] RDW SD 38.4 35.7 - 48.1 fL [facility] NRBC abs 0.00 0.00 - 0.01 K/cumm [facility] Blood 11/17/2023 4:21 AM CDT 11/17/2023 4:52 AM CDT us Javon Garcia MD LAB BLOOD ORDERABLES Final Result [facility] [address] Department [place] [address] * Differential, auto (11/16/2023 3:43 AM CDT) Neutrophil abs 6.4 1.5 - 6.5 K/cumm Imm gran abs 0.0 0.0 - 0.1 K/cumm [facility] Lymphocyte abs 3.0 0.8 - 3.3 K/cumm [facility] Monocyte abs 0.8 0.2 - 0.8 K/cumm [facility] Eosinophil abs 0.2 0.0 - 0.5 K/cumm [facility] Basophil abs 0.0 0.0 - 0.1 K/cumm [facility] Neutrophil pct 61.6 % [facility] Comment: Interpretive Data Percent cell count reference ranges are not reported, since discordance with absolute values may lead to misinterpretation of CBC data. Current Interpretive Data was last revised on 2017. Imm gran pct 0.3 % [facility] Comment: Interpretive Data Percent cell count reference ranges are not reported, since discordance with absolute values may lead to misinterpretation of CBC data. Current Interpretive Data was last revised on 2017. Lymphocyte pct 28.8 % [facility] Comment: Interpretive Data Percent cell count reference ranges are not reported, since discordance with absolute values may lead to misinterpretation of CBC data. Current Interpretive Data was last revised on 2017. Monocyte pct 7.4 % [facility] Comment: Interpretive Data Percent cell count reference ranges are not reported, since discordance with absolute values may lead to misinterpretation of CBC data. Current Interpretive Data was last revised on 2017. Eosinophil pct 1.5 % [facility] Comment: Interpretive Data Percent cell count reference ranges are not reported, since discordance with absolute values may lead to misinterpretation of CBC data. Current Interpretive Data was last revised on 2017. Basophil pct 0.4 % [facility] Comment: Interpretive Data Percent cell count reference ranges are not reported, since discordance with absolute values may lead to misinterpretation of CBC data. Current Interpretive Data was last revised on 2017. Blood 11/16/2023 3:43 AM CDT 11/16/2023 3:53 AM CDT Javon Garcia MD LAB BLOOD ORDERABLES Final Result Performing Organization Address City/[facility]/ZIP Co de Phone Number [address] [place] [address] * (ABNORMAL) CBC with auto differential (11/16/2023 3:43 AM CDT) WBC 10.4(H) 3.8 - 9.9 K/cumm Hgb 13.2 13.0 - 17.5 g/dL [facility] Hct 39.5 38.9 - 50.3 % [facility] Plt 233 150 - 400 K/cumm [facility] MPV 11.1 9.1 - 12.3 fL [facility] RBC 4.71 4.30 - 5.80 M/cumm [facility] MCV 83.9 81.3 - 96.4 fL [facility] MCH 28.0 27.1 - 33.3 pg [facility] MCHC 33.4 32.3 - 35.7 g/dL [facility] RDW CV 12.6 11.1 - 14.9 % [facility] RDW SD 38.5 35.7 - 48.1 fL [facility] NRBC abs 0.00 0.00 - 0.01 K/cumm [facility] Blood 11/16/2023 3:43 AM CDT 11/16/2023 3:53 AM CDT Javon Garcia MD LAB BLOOD ORDERABLES Final Result Performing Organization Address City/[facility]/ZIP Co de Phone Number [place] [address] Department [place] [address] * Differential, auto (11/15/2023 9:41 AM CDT) Pathologist [facility] Neutrophil abs 4.8 1.5 - 6.5 K/cumm Imm gran abs 0.0 0.0 - 0.1 K/cumm [facility] Lymphocyte abs 2.2 0.8 - 3.3 K/cumm [facility] Monocyte abs 0.5 0.2 - 0.8 K/cumm [facility] Eosinophil abs 0.2 0.0 - 0.5 K/cumm [facility] Basophil abs 0.0 0.0 - 0.1 K/cumm [facility] Neutrophil pct 62.4 % [facility] Comment: Interpretive Data Percent cell count reference ranges are not reported, since discordance with absolute values may lead to misinterpretation of CBC data. Current Interpretive Data was last revised on 2017. Imm gran pct 0.4 % [facility] Comment: Interpretive Data Percent cell count reference ranges are not reported, since discordance with absolute values may lead to misinterpretation of CBC data. Current Interpretive Data was last revised on 2017. Lymphocyte pct 28.7 % [facility] Comment: Interpretive Data Percent cell count reference ranges are not reported, since discordance with absolute values may lead to misinterpretation of CBC data. Current Interpretive Data was last revised on 2017. Monocyte pct 5.9 % [facility] Comment: Interpretive Data Percent cell count reference ranges are not reported, since discordance with absolute values may lead to misinterpretation of CBC data. Current Interpretive Data was last revised on 2017. Eosinophil pct 2.3 % [facility] Comment: Interpretive Data Percent cell count reference ranges are not reported, since discordance with absolute values may lead to misinterpretation of CBC data. Current Interpretive Data was last revised on 2017. Basophil pct 0.3 % [facility] Comment: Interpretive Data Percent cell count reference ranges are not reported, since discordance with absolute values may lead to misinterpretation of CBC data. Current Interpretive Data was last revised on 2017. Blood 11/15/2023 9:41 AM CDT 11/15/2023 10:01 AM CDT Javon Garcia MD LAB BLOOD ORDERABLES Final Result Performing Organization Address [facility] de Phone Number MIRTH[place] [address] [address] * CBC with auto differential (11/15/2023 9:41 AM CDT) [facility] WBC 7.7 3.8 - 9.9 K/cumm Hgb 13.8 13.0 - 17.5 g/dL [facility] Hct 41.2 38.9 - 50.3 % [facility] Plt 231 150 - 400 K/cumm [facility] MPV 10.6 9.1 - 12.3 fL [facility] RBC 4.92 4.30 - 5.80 M/cumm [facility] MCV 83.7 81.3 - 96.4 fL [facility] MCH 28.0 27.1 - 33.3 pg [facility] MCHC 33.5 32.3 - 35.7 g/dL [facility] RDW CV 12.9 11.1 - 14.9 % [facility] RDW SD 39.5 35.7 - 48.1 fL [facility] NRBC abs 0.00 0.00 - 0.01 K/cumm [facility] Blood 11/15/2023 9:41 AM CDT 11/15/2023 10:01 AM CDT Javon Garcia MD LAB BLOOD ORDERABLES Final Result Performing Organization Address [facility] de Phone Number [address] [address] * (ABNORMAL) Drugs of Abuse Screen, Urine without Confirmation (11/15/2023 8:50 AM CDT) [facility] Amphetamine, ur Not Detected CutOff 500ng/mL Comment: Interpretive Data - Amphetamines: ??Samples containing greater than 500 ng/mL d-methamphetamine ??or other cross-reacting amphetamine compounds are reported as positive. ??Amphetamine immunoassays are subject to significant false positive rates due to cross-reactivity of non-amphetamine drugs. Confirmatory testing required for definitive results. Current Interpretive Data was last reviewed 2022. Barbiturates, ur Not Detected CutOff 200ng/mL [facility] Comment: Interpretive Data - Barbiturates: ??Samples containing greater than 200 ng/mL secobarbital or other cross-reacting barbiturate compounds are reported as positive. ??False positive and false negative results are possible. Confirmatory testing required for definitive results. Current Interpretive Data was last reviewed 2022. Benzodiazepines, ur Not Detected CutOff 100ng/mL [facility] Comment: Interpretive Data - Benzodiazepines: ??Samples containing greater than 100 ng/mL nordiazepam or other cross-reacting compounds are reported as positive. False positive and false negative results are possible. Confirmatory testing required for definitive results. Current Interpretive Data was last reviewed 2022. Cannabinoids, ur Screen Positive, presumptive (A) CutOff 50 ng/mL [facility] Comment: Interpretive Data - Cannabinoids: ??Samples containing greater than 50 ng/mL delta-9 THC -COOH or other cross-reacting compounds are reported as positive. ??False positive and false negative results are possible. ??Confirmatory testing required for definitive results. Current Interpretive Data was last reviewed 2022. Cocaine, ur Not Detected CutOff 150ng/mL [facility] Comment: Interpretive Data - Cocaine: ??Samples containing greater than 150 ng/mL benzoylecgonine or other cross-reacting compounds are reported as positive. False positive and false negative results are possible. Confirmatory testing required for definitive results. Current Interpretive Data was last reviewed 2022. Fentanyl, Ur Not Detected CutOff 5 ng/mL [facility] Comment: Interpretive Data - Fentanyl: ?? Samples containing greater than 5 ng/mL norfentanyl, fentanyl, or other cross-reacting fentanyl compounds are reported as positive. False positive and false negative results are possible. Confirmatory testing required for definitive results. Current Interpretive Data was last reviewed 2023. Methadone, ur Not Detected CutOff 300ng/mL [facility] Comment: Interpretive Data - Methadone: ??Samples containing greater than 300 ng/mL d,l-methadone or other cross-reacting compounds are reported as positive. ??False positive and false negative results are possible. Confirmatory testing required for definitive results. Current Interpretive Data was last reviewed 2022. Opiates, ur Not Detected CutOff 300ng/mL [facility] Comment: Interpretive Data - Opiates: ??Samples containing greater than 300 ng/mL morphine or other cross-reacting compounds are reported as positive. ??False positive and false negative results are possible. Confirmatory testing required for definitive results. Current Interpretive Data was last reviewed 2022. Oxycodone, ur Screen Positive, presumptive (A) CutOff 100ng/mL [facility] Comment: Interpretive Data - Oxycodone: ??Samples containing greater than 100 ng/mL oxycodone or other cross-reacting compounds are reported as ??positive. ??False positive and false negative results are possible. Confirmatory testing required for definitive results. Current Interpretive Data was last reviewed 2022. Phencyclidine, ur Not Detected CutOff 25 ng/mL [facility] Comment: Interpretive Data - Phencyclidine: ??Samples containing greater than 25 ng/mL phencyclidine or other cross-reacting compounds are reported as positive. ??False positive and false negative results are possible. Confirmatory testing required for definitive results. Current Interpretive Data was last reviewed 2022. Urine Creatinine 338 mg/dL [facility] Comment: Interpretive Data Urine Creatinine: < 10 mg/dL is extremely dilute = or > 10 but < 20 mg/dL is dilute = or > 20 mg/dL is normal Current Interpretive Data was last revised on 2017. Urine 11/15/2023 8:50 AM CDT 11/15/2023 9:09 AM CDT Karen Anderson NP LAB URINE ORDERABLES Faith barrett Result [facility] [address] Department [place] [address] * Urinalysis reflex to microscopic and culture Urine (11/15/2023 8:50 AM CDT) Color, ur Yellow Yellow Clarity, ur Clear Clear [facility] Specific gravity, ur 1.030 1.003 - 1.030 [facility] pH, urine 6.0 [facility] Comment: Interpretive Data ? Urine pH is affected by diet, medications, systemic acid-base disturbances, and renal tubular function. ??pH may affect urinary stone formation. ??For example, urine pH below 6.0 may help reduce the tendency for calcium phosphate stones and pH greater than 6.0 may reduce the tendency for uric acid stone formation. Source: [facility] Current Interpretive Data was last revised on 2017 Protein, ur ql Negative Negative [facility] Glucose, ur ql Negative Negative [facility] Ketones, ur Negative Negative [facility] Bilirubin, ur Negative Negative [facility] Blood, ur Negative Negative [facility] Urobilinogen, ur <2.0 <2.0 mg/dL [facility] Nitrite, ur Negative Negative [facility] Leukocyte esterase, ur Negative Negative [facility] UA reflex comment Reflex conditions for microscopic UA and culture not met. [facility] Urine 11/15/2023 8:50 AM CDT 11/15/2023 8:53 AM CDT Karen Anderson [employer]IOR [employer]INC[employer]AL SOFTWARE ENGINE[employer] LAB MICROBIOLOGY - GENERA L ORDERABLES Final Result [facility] [address] Department [place] [address] * (ABNORMAL) Drugs of Abuse Screen, Urine without Confirmation (11/14/2023 9:52 PM CDT) Pathologist [facility] Amphetamine, ur Not Detected CutOff 500ng/mL Comment: Interpretive Data - Amphetamines: ??Samples containing greater than 500 ng/mL d-methamphetamine ??or other cross-reacting amphetamine compounds are reported as positive. ??Amphetamine immunoassays are subject to significant false positive rates due to cross-reactivity of non-amphetamine drugs. Confirmatory testing required for definitive results. Current Interpretive Data was last reviewed 2022. Barbiturates, ur Not Detected CutOff 200ng/mL [facility] Comment: Interpretive Data - Barbiturates: ??Samples containing greater than 200 ng/mL secobarbital or other cross-reacting barbiturate compounds are reported as positive. ??False positive and false negative results are possible. Confirmatory testing required for definitive results. Current Interpretive Data was last reviewed 2022. Benzodiazepines, ur Not Detected CutOff 100ng/mL [facility] Comment: Interpretive Data - Benzodiazepines: ??Samples containing greater than 100 ng/mL nordiazepam or other cross-reacting compounds are reported as positive. False positive and false negative results are possible. Confirmatory testing required for definitive results. Current Interpretive Data was last reviewed 2022. Cannabinoids, ur Screen Positive, presumptive (A) CutOff 50 ng/mL [facility] Comment: Interpretive Data - Cannabinoids: ??Samples containing greater than 50 ng/mL delta-9 THC -COOH or other cross-reacting compounds are reported as positive. ??False positive and false negative results are possible. ??Confirmatory testing required for definitive results. Current Interpretive Data was last reviewed 2022. Cocaine, ur Not Detected CutOff 150ng/mL [facility] Comment: Interpretive Data - Cocaine: ??Samples containing greater than 150 ng/mL benzoylecgonine or other cross-reacting compounds are reported as positive. False positive and false negative results are possible. Confirmatory testing required for definitive results. Current Interpretive Data was last reviewed 2022. Fentanyl, Ur Not Detected CutOff 5 ng/mL [facility] Comment: Interpretive Data - Fentanyl: ?? Samples containing greater than 5 ng/mL norfentanyl, fentanyl, or other cross-reacting fentanyl compounds are reported as positive. False positive and false negative results are possible. Confirmatory testing required for definitive results. Current Interpretive Data was last reviewed 2023. Methadone, ur Not Detected CutOff 300ng/mL [facility] Comment: Interpretive Data - Methadone: ??Samples containing greater than 300 ng/mL d,l-methadone or other cross-reacting compounds are reported as positive. ??False positive and false negative results are possible. Confirmatory testing required for definitive results. Current Interpretive Data was last reviewed 2022. Opiates, ur Not Detected CutOff 300ng/mL [facility] Comment: Interpretive Data - Opiates: ??Samples containing greater than 300 ng/mL morphine or other cross-reacting compounds are reported as positive. ??False positive and false negative results are possible. Confirmatory testing required for definitive results. Current Interpretive Data was last reviewed 2022. Oxycodone, ur Screen Positive, presumptive (A) CutOff 100ng/mL [facility] Comment: Interpretive Data - Oxycodone: ??Samples containing greater than 100 ng/mL oxycodone or other cross-reacting compounds are reported as ??positive. ??False positive and false negative results are possible. Confirmatory testing required for definitive results. Current Interpretive Data was last reviewed 2022. Phencyclidine, ur Not Detected CutOff 25 ng/mL [facility] Comment: Interpretive Data - Phencyclidine: ??Samples containing greater than 25 ng/mL phencyclidine or other cross-reacting compounds are reported as positive. ??False positive and false negative results are possible. Confirmatory testing required for definitive results. Current Interpretive Data was last reviewed 2022. Urine Creatinine 257 mg/dL [facility] Comment: Interpretive Data Urine Creatinine: < 10 mg/dL is extremely dilute = or > 10 but < 20 mg/dL is dilute = or > 20 mg/dL is normal Current Interpretive Data was last revised on 2017. Urine 11/14/2023 9:52 PM CDT 11/14/2023 9:57 PM CDT Narrative [facility] - 11/14/2023 10:23 PM CDT Drug of Abuse screening is performed by immunoassay for medical purposes only. ??This is not to be used for Pain Management purposes. Javon Garcia MD LAB URINE ORDERABLES Final Result Performing Organization Address [facility] Co de Phone Number [place] [address] [facility] [place] [address] * POCT glucose (11/14/2023 8:57 PM CDT) [facility] Signature Glucose, POC 131 70 - 199 mg/dL Blood 11/14/2023 8:57 PM CDT 11/14/2023 8:57 PM CDT Javon Garcia MD LAB POCT ORDERABLES - DEVICE Final Result Performing Organization Address [facility] Co de Phone Number [place] [address] [facility] [place] [address] * eGFR (11/14/2023 8:48 PM CDT) Pathologist [facility] eGFR >90 >=60 mL/min/1. 73 m2 Comment: Interpretive Data Reference Interval Normal ?>/= [...] of Race in Diagnosing Kidney Disease, JASN 2020). The CKD-EPI equation should not be used for patients with unstable renal function and has not been validated in children and those over 70. Current interpretive data was last reviewed 2021. Blood 11/14/2023 8:48 PM CDT 11/14/2023 9:20 PM CDT us Javon Garcia MD LAB BLOOD ORDERABLES Final Result [facility] [address] Department [place] [address] * (ABNORMAL) Comprehensive metabolic panel (11/14/2023 8:48 PM CDT) [facility] Sodium 141 135 - 145 mmol/L Potassium, pl 3.5 3.3 - 4.9 mmol/L [facility] Chloride 108 97 - 110 mmol/L [facility] CO2 24 22 - 32 mmol/L [facility] Anion gap 9 2 - 15 mmol/L [facility] BUN 13 6 - 25 mg/dL [facility] Creatinine 0.68(L) 0.80 - 1.30 mg/dL [facility] Glucose 122 70 - 199 mg/dL [facility] Comment: Interpretive Data Fasting glucose >/= [...] classification and Diagnosis of Diabetes Diabetes Care 202; 46: S19-S40. Current interpretive data was last revised 2022. Calcium 8.7 8.5 - 10.3 mg/dL [facility] Bilirubin, total 0.5 0.1 - 1.2 mg/dL [facility] Protein, pl 6.1(L) 6.5 - 8.5 g/dL [facility] Albumin 3.9 3.5 - 5.0 g/dL [facility] Alk phos 80 40 - 130 Units/L [facility] ALT 18 7 - 55 Units/L [facility] AST 16 10 - 50 Units/L [facility] Blood 11/14/2023 8:48 PM CDT 11/14/2023 9:20 PM CDT Javon Garcia MD LAB BLOOD ORDERABLES Final Result [facility] [address] Department [place] [address] * HIV 1/2 Antibody plus p24 Antigen Blood (11/14/2023 8:48 PM CDT) HIV 1/2 ab + p24 ag Nonreactive Nonreactive Comment:Nonreactive for HIV- 1 antigen and HIV-1/HIV-2 antibodies. No laboratory evidence of HIV infection. If acute HIV infection is suspected, consider testing for HIV-1 RNA. Current interpretive data was last revised on 22. Blood 11/14/2023 8:48 PM CDT 11/14/2023 9:19 PM CDT Javon Garcia MD LAB MICROBIOLOGY - GE NERAL ORDERABLES Final Result Performing Organization Address City/[facility]/ZIP Co de Phone Number M[place]TH[place] [address] [place] [address] * Hepatitis panel, acute Blood (11/14/2023 8:48 PM CDT) Hep A IgM Nonreactive Nonreactive Comment: Interpretive Data: If Hep A IgM Ab is reported as Equivocal, a new sample should be drawn in two weeks for testing. Current interpretive data was last revised on 19. Hep B core IgM Nonreactive Nonreactive [facility] Comment: Interpretive Data If HepB Core IgM Ab is reported as Equivocal, a new sample should be drawn in two weeks for testing. Current interpretive data was last revised on 19. Hep C Ab Nonreactive Nonreactive [facility] Comment: Antibodies to HCV not detected. Does [...] last revised on 2019. HepBsAg Nonreactive Nonreactive [facility] Blood 11/14/2023 8:48 PM CDT 11/14/2023 9:19 PM CDT Javon Garcia MD LAB MICROBIOLOGY - GE NERAL ORDERABLES Final Result Performing Organization Address City/[facility] Co de Phone Number [place] [address] [facility] [place] [address] * ECG 12 lead (11/14/2023 5:02 PM CDT) [facility] Ventricular Rate EKG/Min 64 BPM [facility] Atrial Rate 64 BPM [facility] IN-Interval (MSEC) 128 ms [facility] QRS-Interval (MSEC) 108 ms [facility] [facility] QT-Interval (MSEC) 392 ms [facility] QTc 404 ms [facility] P [place] 41 degrees [facility] R [place] 3 degrees [facility] T [place] 49 degrees [facility] Diagnosis Normal sinus rhythm with sinus arrhythmia RSR' or QR pattern in V1 suggests right ventricular conduction delay Possible Lateral infarct , age undetermined Abnormal ECG When compared with ECG of 15-OCT-2023 07:14, RSR' pattern in V1 is now Present Confirmed by ELKIN WARD M.D. ([id number]) on 11/14/2023 9:36:27 PM [facility] 11/14/2023 5:02 PM CDT 11/14/2023 9:36 PM CDT us Jessica De Anda MD ECG ORDERABLES Final Res ult [facility] * Magnesium (11/14/2023 3:21 PM CDT) [facility] Magnesium 1.7 1.4 - 2.5 mg/dL Blood 11/14/2023 3:21 PM CDT 11/14/2023 3:35 PM CDT us Ravindra Smith MD LAB BLOOD ORDERABLES Final Result [place] [id number] [facility] Department [place] [address] * (ABNORMAL) Phosphorus (11/14/2023 3:21 PM CDT) [facility] Phosphorus, pl 2.1(L) 2.3 - 4.5 mg/dL Blood 11/14/2023 3:21 PM CDT 11/14/2023 3:35 PM CDT us Ravindra Smith MD LAB BLOOD ORDERABLES Final Result Performing Organization Address [facility] Co de Phone Number MIRTHA [address] [place] [address] * eGFR (11/14/2023 3:21 PM CDT) eGFR >90 >=60 mL/min/1. 73 m2 Comment: Interpretive Data Reference Interval Normal ?>/= [...] of Race in Diagnosing Kidney Disease, JASN 2020). The CKD-EPI equation should not be used for patients with unstable renal function and has not been validated in children and those over 70. Current interpretive data was last reviewed 2021. Blood 11/14/2023 3:21 PM CDT 11/14/2023 3:35 PM CDT us Jessica De Anda MD LAB BLOOD ORDERABLES Faith l Result Performing Organization Address [facility] de Phone Number MIRTHA [address] [facility] [place] [address] * (ABNORMAL) Differential, auto (11/14/2023 3:21 PM CDT) Neutrophil abs 7.1(H) 1.5 - 6.5 K/cumm Imm gran abs 0.0 0.0 - 0.1 K/cumm [facility] Lymphocyte abs 2.1 0.8 - 3.3 K/cumm [facility] Monocyte abs 0.6 0.2 - 0.8 K/cumm [facility] Eosinophil abs 0.2 0.0 - 0.5 K/cumm [facility] Basophil abs 0.0 0.0 - 0.1 K/cumm [facility] Neutrophil pct 70.9 % [facility] Comment: Interpretive Data Percent cell count reference ranges are not reported, since discordance with absolute values may lead to misinterpretation of CBC data. Current Interpretive Data was last revised on 2017. Imm gran pct 0.3 % [facility] Comment: Interpretive Data Percent cell count reference ranges are not reported, since discordance with absolute values may lead to misinterpretation of CBC data. Current Interpretive Data was last revised on 2017. Lymphocyte pct 21.1 % [facility] Comment: Interpretive Data Percent cell count reference ranges are not reported, since discordance with absolute values may lead to misinterpretation of CBC data. Current Interpretive Data was last revised on 2017. Monocyte pct 5.7 % [facility] Comment: Interpretive Data Percent cell count reference ranges are not reported, since discordance with absolute values may lead to misinterpretation of CBC data. Current Interpretive Data was last revised on 2017. Eosinophil pct 1.7 % [facility] Comment: Interpretive Data Percent cell count reference ranges are not reported, since discordance with absolute values may lead to misinterpretation of CBC data. Current Interpretive Data was last revised on 2017. Basophil pct 0.3 % [facility] Comment: Interpretive Data Percent cell count reference ranges are not reported, since discordance with absolute values may lead to misinterpretation of CBC data. Current Interpretive Data was last revised on 2017. Blood 11/14/2023 3:21 PM CDT 11/14/2023 3:35 PM CDT Jessica De Anda MD LAB BLOOD ORDERABLES Faith l Result Performing Organization Address [facility]/ZIP Co de Phone Number [facility] [address] [facility] Department [place] [address] * (ABNORMAL) Comprehensive metabolic panel (11/14/2023 3:21 PM CDT) Sodium 141 135 - 145 mmol/L Potassium, pl 4.0 3.3 - 4.9 mmol/L [facility] Chloride 108 97 - 110 mmol/L [facility] CO2 22 22 - 32 mmol/L [facility] Anion gap 11 2 - 15 mmol/L [facility] BUN 12 6 - 25 mg/dL [facility] Creatinine 0.74(L) 0.80 - 1.30 mg/dL [facility] Glucose 104 70 - 199 mg/dL [facility] Comment: Interpretive Data Fasting glucose >/= [...] classification and Diagnosis of Diabetes Diabetes Care 2021; 46: S19-S40. Current interpretive data was last revised 2022. Calcium 9.3 8.5 - 10.3 mg/dL [facility] Bilirubin, total 0.7 0.1 - 1.2 mg/dL [facility] Protein, pl 7.2 6.5 - 8.5 g/dL [facility] Albumin 4.3 3.5 - 5.0 g/dL [facility] Alk phos 82 40 - 130 Units/L [facility] ALT 21 7 - 55 Units/L [facility] AST 20 10 - 50 Units/L [facility] Blood (Blood, Venous) 11/14/2023 3:21 PM CDT 11/14/2023 3:35 PM CDT Jessica De Anda MD LAB BLOOD ORDERABLES Faith l Result [address] [place] [address] * (ABNORMAL) CBC with auto differential (11/14/2023 3:21 PM CDT) WBC 10.0(H) 3.8 - 9.9 K/cumm Hgb 15.1 13.0 - 17.5 g/dL [facility] Hct 45.0 38.9 - 50.3 % [facility] Plt 243 150 - 400 K/cumm [facility] MPV 11.1 9.1 - 12.3 fL [facility] RBC 5.40 4.30 - 5.80 M/cumm [facility] MCV 83.3 81.3 - 96.4 fL [facility] MCH 28.0 27.1 - 33.3 pg [facility] MCHC 33.6 32.3 - 35.7 g/dL [facility] RDW CV 12.8 11.1 - 14.9 % [facility] RDW SD 38.5 35.7 - 48.1 fL [facility] NRBC abs 0.00 0.00 - 0.01 K/cumm [facility] Blood (Blood, Venous) 11/14/2023 3:21 PM CDT 11/14/2023 3:35 PM CDT us Jessica De Anda MD LAB BLOOD ORDERABLES Faith barrett Result Performing Organization Address [facility]/State/[facility] Co de Phone Number [address] [place] [address] documented in this encounter Visit Diagnoses Diagnosis Opiate withdrawal (HCC)- Primary Drug withdrawal Opiate withdrawal (HCC) Drug withdrawal Opiate abuse, episodic (HCC) Vomiting and diarrhea documented in this encounter Admitting Diagnoses Diagnosis Opiate withdrawal (HCC) Drug withdrawal documented in this encounter Administered Medications Inactive Administered Medications - up to 3 most recent administrations Medication Order MAR Action Action Date Dose Rate Site acetaminophen (TYLENOL) tablet 650 mg 650 mg, oral, Every 6 hours PRN, fever, 1st line for pain, headaches, Starting on Tania 11/14/23 at 1830, Do not exceed 4000 mg of acetaminophen in 24 hours from all sources of acetaminophen. Be mindful of combination products that also contain acetaminophen. Given 11/16/2023 1:30 AM CDT 650 mg Given 11/15/2023 6:47 PM CDT 650 mg Given 11/14/2023 11:12 PM CDT 650 mg cloNIDine (CATAPRES) tablet 0.1 mg 0.1 mg, oral, Once, On Sat11/14/23 at 1900, For 1 dose, Check blood pressure and heart rate in one hour. Hold clonidine if blood pressure is less than 90/60 or heart rate less than 60 and notify physician., Indications: Opioid Withdrawal SymptomsIndications:Opioid Withdrawal Symptoms Given 11/14/2023 6:46 PM CDT 0.1 mg cloNIDine (CATAPRES) tablet 0.1 mg 0.1 mg, oral, 4 times daily PRN, other, opioid withdrawal score 5-11, Starting on Sat11/19/23 at 0000, For 2 days, Hold clonidine if blood pressure is less than 90/60 or heart rate less than 60 and notify physician., Indications: Opioid Withdrawal SymptomsIndications:Opioid Withdrawal Symptoms cloNIDine (CATAPRES) tablet 0.1 mg 0.1 mg, oral, 2 times daily PRN, other, opioid withdrawal score 5-11, Starting on Sat11/21/23 at 0000, For 2 days, Hold clonidine if blood pressure is less than 90/60 or heart rate less than 60 and notify physician., Indications: Opioid Withdrawal SymptomsIndications:Opioid Withdrawal Symptoms cloNIDine (CATAPRES) tablet 0.1 mg 0.1 mg, oral, 4 times daily PRN, other, opioid withdrawal score 12-24, Starting on Sat11/21/23 at 0000, For 2 days, Hold clonidine if blood pressure is less than 90/60 or heart rate less than 60 and notify physician., Indications: Opioid Withdrawal SymptomsIndications:Opioid Withdrawal Symptoms cloNIDine (CATAPRES) tablet 0.2 mg 0.2 mg, oral, 4 times daily PRN, other, opioid withdrawal score 5-11, Starting on Sat11/14/23 at 1828, For 4 days, Hold clonidine if blood pressure is less than 90/60 or heart rate less than 60 and notify physician., Indications: Opioid Withdrawal SymptomsIndications:Opioid Withdrawal Symptoms Given 11/14/2023 11:12 PM CDT 0.2 mg cloNIDine (CATAPRES) tablet 0.2 mg 0.2 mg, oral, 4 times daily PRN, other, opioid withdrawal score 12-24, Starting on Sat11/19/23 at 0000, For 2 days, Hold clonidine if blood pressure is less than 90/60 or heart rate less than 60 and notify physician., Indications: Opioid Withdrawal SymptomsIndications:Opioid Withdrawal Symptoms cloNIDine (CATAPRES) tablet 0.3 mg 0.3 mg, oral, 4 times daily PRN, other, opioid withdrawal score 12-24, Starting on Sat11/14/23 at 1828, For 4 days, Hold clonidine if blood pressure is less than 90/60 or heart rate less than 60 and notify physician. diphenhydrAMINE (BENADRYL) 50 mg/mL injection 25 mg 25 mg, intravenous, Administer over 2 Minutes, Once, On Sat11/15/23 at 0015, For 1 dose Given 11/14/2023 11:42 PM CDT 25 mg enoxaparin (LOVENOX) syringe 40 mg 40 mg, subcutaneous, Daily (for enoxaparin), First dose on Sat11/14/23 at 2100, Indications: Deep Vein Thrombosis PreventionIndications:Deep Vein Thrombosis Prevention Given 11/16/2023 8:30 PM CDT 40 mg Right Lower Abdomen Given 11/15/2023 9:18 PM CDT 40 mg Le ft Lower Abdomen Given 11/14/2023 8:46 PM CDT 40 mg Le ft Lower Abdomen ketorolac (TORADOL) 30 mg/mL injection 15 mg 15 mg, intravenous, Every 8 hours PRN, 2nd line for pain, Starting on Sat11/14/23 at 1831, For 3 doses Given 11/15/2023 4:50 AM CDT 15 mg Given 11/14/2023 6:46 PM CDT 15 mg ketorolac (TORADOL) 30 mg/mL injection 30 mg 30 mg, intravenous, Once, On Sat11/14/23 at 1622, For 1 dose, For Adult IV push, administer over 15 seconds Given 11/14/2023 4:57 PM CDT 30 mg metoclopramide (REGLAN) 5 mg/mL injection 10 mg 10 mg, intravenous, Every 6 hours PRN, other, nausea and vomiting, Starting on Sat11/15/23 at 0733 Given 11/15/2023 8:17 AM CDT 10 mg ondansetron (ZOFRAN) injection 4 mg 4 mg, intravenous, Administer over 2 Minutes, 3 times daily PRN, nausea, vomiting, if not tolerating PO, Starting on Sat11/14/23 at 1828, Indications: Nausea and VomitingIndications:Nausea and Vomiting Given 11/17/2023 7:38 AM CDT 4 mg Given 11/16/2023 8:28 AM CDT 4 mg Given 11/15/2023 4:50 AM CDT 4 mg ondansetron (ZOFRAN) injection 4 mg 4 mg, intravenous, Administer over 2 Minutes, Once, On Sat11/15/23 at 0015, For 1 dose Given 11/14/2023 11:42 PM CDT 4 mg ondansetron ODT (ZOFRAN-ODT) disintegrating tablet 4 mg 4 mg, oral, 3 times daily PRN, nausea, vomiting, Starting on Sat11/14/23 at 1828, Indications: Nausea and VomitingIndications:Nausea and Vomiting Given 11/15/2023 11:02 PM CDT 4 m g Given 11/15/2023 11:10 AM CDT [address] (PROTONIX) extended release tablet 40 mg 40 mg, oral, 2 times daily, First dose on Sat11/14/23 at 2100, Autosub for omeprazole per pharmacy protocol Do not crush, chew, cut, dissolve, open or otherwise manipulate tablet/capsule., Indications: Stress Ulcer ProphylaxisIndications:Stress Ulcer Prophylaxis Given 11/17/2023 9:54 AM CDT 40 mg Given 11/16/2023 8:30 PM CDT 40 mg Given 11/16/2023 8:28 AM CDT 40 mg potassium, sodium phosphates (PHOS-NAK) 280-160-250 mg packet 1 packet 1 packet, oral, 3 times daily before meals, First dose on Sat11/15/23 at 1130, Each packet contains elemental phosphorus 250 mg (8 mmol), potassium 280 mg (7.1 mEq), and sodium 160 mg (6.9 mEq). Given 11/17/2023 9:54 AM CDT 1 packet Given 11/16/2023 5:17 PM CDT 1 packet Given 11/16/2023 12:05 PM CDT 1 packet pregabalin (LYRICA) capsule 100 mg 100 mg, oral, 2 times daily, First dose on [facility] 11/16/23 at 2100 Given 11/17/2023 9:54 AM CDT 100 mg Given 11/16/2023 8:30 PM CDT 100 mg prochlorperazine (COMPAZINE) injection 5 mg 5 mg, intravenous, Administer over 2 Minutes, Once, On [facility] 11/14/23 at 2130, For 1 dose Given 11/14/2023 8:48 PM CDT 5 mg ramelteon (ROZEREM) tablet 8 mg 8 mg, oral, Once, On [facility] 11/16/23 at 2300, For 1 dose, Indications: Sleep-Onset InsomniaIndications:Sleep-Onset Insomnia Given 11/16/2023 10:30 PM CDT 8 mg sodium chloride 0.9% bolus 1,000 mL 1,000 mL, intravenous, at 1,000 mL/hr, Administer over 1 Hours, Once, On [facility] 11/14/23 at 1622, For 1 dose New Bag 11/14/2023 4:58 PM CDT 1,000 mL 1000 mL/hr sodium chloride 0.9% infusion 75 mL/hr, intravenous, Continuous, Starting on [facility] 11/14/23 at 2145, For 10 hours New Bag 11/14/2023 9:31 PM CDT 75 mL/hr 7 5 mL/hr sucralfate (CARAFATE) tablet 1 g 1 g, oral, 4 times daily, First dose (after last modification) on [facility] 11/16/23 at 1700, Indications: Gastric UlcerIndications:Gastric Ulcer Given 11/17/2023 9:54 AM CDT 1 g Given 11/16/2023 8:30 PM CDT 1 g Given 11/16/2023 5:17 PM CDT 1 g documented in this encounter Discontinued Medications Medication Sig Discontinue Reason Start Date End Da te amitriptyline (ELAVIL) 10 mg tablet Alternate therapy 08/26/2018 11/14/2023 azithromycin (Zithromax Z-Lazaro) 250 mg tablet Take 1 tablet (250 mg total) by mouth daily Take first 2 tablets together, then 1 every day until finished. 06/25/2021 11/14/2023 benzonatate (TESSALON) 100 mg capsuleIndications:Coug h Take 1 capsule (100 mg total) by mouth every 8 (eight) hours 06/25/2021 11/14/2023 chlordiazePOXIDE-clidin ium (LIBRAX) 5-2.5 mg per capsule 08/28/2018 11/14/2023 omeprazole (PriLOSEC) 20 mg capsule Take 20 mg by mouth 2 (two) times a day 06/02/2018 11/14/2023 prochlorperazine (COMPAZINE) 5 mg tablet TAKE 1 PILL BY MOUTH EVERY 6 HOURS X 1 MONTH (30D) NEEDED 07/30/2018 11/14/2023 famotidine (PEPCID) 20 mg tablet Take 1 tablet (20 mg total) by mouth nightly as needed for indigestion or heartburn 07/23/2018 11/17/2023 ondansetron ODT (ZOFRAN-ODT) 4 mg disintegrating tablet Take 1 tablet (4 mg total) by mouth every 8 (eight) hours as needed for nausea or vomiting 10/15/2023 11/17/2023 omeprazole (PriLOSEC) 40 mg capsule Take 1 capsule (40 mg total) by mouth daily Stop Taking at Discharge 11/17/2023 documented as of this encounter Historical Medications * This list may reflect changes made after this encounter. sucralfate (CARAFATE) 1 gram tabletIndications :Gastric Ulcer Take 1 tablet (1 g total) by mouth 4 (four) times a day as needed (ulcers) pregabalin (LYRICA) 100 mg capsule Take 1 capsule (100 mg total) by mouth 2 (two) times a day omeprazole (PriLOSEC) 40 mg capsule Take 1 capsule (40 mg total) by mouth daily 11/17/2023 added in this encounter Active and Recently Administered Medications Times are shown in CDT. Scheduled Medication Order 11/15/2023 11/16/2023 11/17/2023 enoxaparin (LOVENOX) syringe 40 mg 40 mg, subcutaneous, Daily (for enoxaparin), First dose on Tania 11/14/23 at 2100, Indications: Deep Vein Thrombosis Prevention 2117 (Given - Provider: Lubna Burns RN) 2029 (Given - Provider: Luda Atkins, CHERY) pantoprazole DR (PROTONIX) extended release tablet 40 mg 40 mg, oral, 2 times daily, First dose on Tania 11/14/23 at 2100, Autosub for omeprazole per pharmacy protocol Do not crush, chew, cut, dissolve, open or otherwise manipulate tablet/capsule., Indications: Stress Ulcer Prophylaxis 0817 (Given - Provider: Anupama Pickard RN)2117 (Given - Provider: Lubna Burns RN) 08 (Given - Provider: Lilliana Dixon RN)2029 (Given - Provider: Luda Atkins, CHERY) 0954 (Given - Provider: Lilliana Dixon RN) potassium, sodium phosphates (PHOS-NAK) 280-160-250 mg packet 1 packet 1 packet, oral, 3 times daily before meals, First dose on Sat11/15/23 at 1130, Each packet contains elemental phosphorus 250 mg (8 mmol), potassium 280 mg (7.1 mEq), and sodium 160 mg (6.9 mEq). 1110 (Given - Provider: Anupama Pickard RN)1711 (Given - Provider: Anupama Pickard RN) 0828 (Given - Provider: Lilliana Dixon RN)1205 (Given - Provider: Lilliana Dixon RN)1717 (Given - Provider: Lilliana Dixon RN) 0857 (Not Given - Provider: Lilliana Dixon RN - Reason: Patient/family refused)0954 (Given - Provider: Lilliana Dixon RN) pregabalin (LYRICA) capsule 100 mg 100 mg, oral, 2 times daily, First dose on 11/16/23 at 2100 2029 (Given - Provider: Luda Atkins RN) 0954 (Given - Provider: Lilliana Dixon RN) ramelteon (ROZEREM) tablet 8 mg (COMPLETED) 8 mg, oral, Once, On 11/16/23 at 2300, For 1 dose, Indications: Sleep-Onset Insomnia 2230 (Given - Provider: Luda Atkins RN) sucralfate (CARAFATE) tablet 1 g 1 g, oral, 4 times daily, First dose (after last modification) on 11/16/23 at 1700, Indications: Gastric Ulcer 1717 (Given - Provider: Lilliana Dixon RN)2030 (Given - Provider: Luda Atkins RN) 0857 (Not Given - Provider: Lilliana Dixon RN - Reason: Patient/family refused)0954 (Given - Provider: Lilliana Dixon RN)1211 (Not Given - Provider: Lilliana Dixon RN - Reason: Patient/family refused) PRN Medication Order 11/15/2023 11/16/2023 11/17/2023 acetaminophen (TYLENOL) tablet 650 mg 650 mg, oral, Every 6 hours PRN, fever, 1st line for pain, headaches, Starting on Sat11/14/23 at 1830, Do not exceed 4000 mg of acetaminophen in 24 hours from all sources of acetaminophen. Be mindful of combination products that also contain acetaminophen. 1847 (Given - Provider: Anupama Pickard RN) 0130 (Given - Provider: Lubna Burns RN) cloNIDine (CATAPRES) tablet 0.1 mg(Linked Group 1) 0.1 mg, oral, 4 times daily PRN, other, opioid withdrawal score 5-11, Starting on Sat11/19/23 at 0000, For 2 days, Hold clonidine if blood pressure is less than 90/60 or heart rate less than 60 and notify physician., Indications: Opioid Withdrawal Symptoms cloNIDine (CATAPRES) tablet 0.1 mg(Linked Group 2) 0.1 mg, oral, 2 times daily PRN, other, opioid withdrawal score 5-11, Starting on Sat11/21/23 at 0000, For 2 days, Hold clonidine if blood pressure is less than 90/60 or heart rate less than 60 and notify physician., Indications: Opioid Withdrawal Symptoms cloNIDine (CATAPRES) tablet 0.1 mg(Linked Group 2) 0.1 mg, oral, 4 times daily PRN, other, opioid withdrawal score 12-24, Starting on Sat11/21/23 at 0000, For 2 days, Hold clonidine if blood pressure is less than 90/60 or heart rate less than 60 and notify physician., Indications: Opioid Withdrawal Symptoms cloNIDine (CATAPRES) tablet 0.2 mg(Linked Group 3) 0.2 mg, oral, 4 times daily PRN, other, opioid withdrawal score 5-11, Starting on Tania 11/14/23 at 1828, For 4 days, Hold clonidine if blood pressure is less than 90/60 or heart rate less than 60 and notify physician., Indications: Opioid Withdrawal Symptoms 0529 (See Alternative - Provider: Radha Cotton RN) cloNIDine (CATAPRES) tablet 0.2 mg(Linked Group 1) 0.2 mg, oral, 4 times daily PRN, other, opioid withdrawal score 12-24, Starting on Sat11/19/23 at 0000, For 2 days, Hold clonidine if blood pressure is less than 90/60 or heart rate less than 60 and notify physician., Indications: Opioid Withdrawal Symptoms cloNIDine (CATAPRES) tablet 0.3 mg(Linked Group 3) 0.3 mg, oral, 4 times daily PRN, other, opioid withdrawal score 12-24, Starting on Sat11/14/23 at 1828, For 4 days, Hold clonidine if blood pressure is less than 90/60 or heart rate less than 60 and notify physician. 0529 (Hold - Provider: Radha Cotton RN - Reason: Contraindicated - Comment: HR 54; ZBIGNIEW Varghese notifed ; order to hold dose) ketorolac (TORADOL) 30 mg/mL injection 15 mg () 15 mg, intravenous, Every 8 hours PRN, 2nd line for pain, Starting on Tania 11/14/23 at 1831, For 3 doses 0450 (Given - Provider: Radha Cotton RN) loperamide (IMODIUM) capsule 2 mg 2 mg, oral, Every 4 hours PRN, other, each subsequent loose stool, Starting on Tania 11/14/23 at 1828, Do not exceed 16 mg per 24 hour time period., Indications: diarrhea loperamide (IMODIUM) capsule 4 mg 4 mg, oral, Once as needed, other, first loose stool, Starting on Tania 11/14/23 at 1828, For 1 dose, Maximum recommended dose 16 mg/day, Indications: diarrhea metoclopramide (REGLAN) 5 mg/mL injection 10 mg 10 mg, intravenous, Every 6 hours PRN, other, nausea and vomiting, Starting on Sat11/15/23 at 0733 0817 (Given - Provider: Anupama Pickard, CHERY) ondansetron (ZOFRAN) injection 4 mg(Linked Group 4) 4 mg, intravenous, Administer over 2 Minutes, 3 times daily PRN, nausea, vomiting, if not tolerating PO, Starting on Tania 11/14/23 at 1828, Indications: Nausea and Vomiting 0450 (Given - Provider: Radha Cotton, CHERY)1110 (See Alternative - Provider: Anupama Pickard RN)2302 (See Alternative - Provider: Lubna Burns, CHERY) 0828 (Given - Provider: Lilliana Dixon, CHERY) 0738 (Given - Provider: Lilliana Dixon, CHERY) ondansetron ODT (ZOFRAN-ODT) disintegrating tablet 4 mg(Linked Group 4) 4 mg, oral, 3 times daily PRN, nausea, vomiting, Starting on Tania 11/14/23 at 1828, Indications: Nausea and Vomiting 0450 (See Alternative - Provider: Radha Cotton RN)1110 (Given - Provider: Anupama Pickard RN)2302 (Given - Provider: Lubna Burns, CHERY) 0828 (See Alternative - Provider: Lilliana Dixon, CHERY) 0738 (See Alternative - Provider: Lilliana Dixon, CHERY) Linked Groups Order Group 1: cloNIDine (CATAPRES) tablet 0.1 mgJump to med 0.1 mg, oral, 4 times daily PRN, other, opioid withdrawal score 5-11, Starting on Sat11/19/23 at 0000, For 2 days, Hold clonidine if blood pressure is less than 90/60 or heart rate less than 60 and notify physician., Indications: Opioid Withdrawal Symptoms Or cloNIDine (CATAPRES) tablet 0.2 mgJump to med 0.2 mg, oral, 4 times daily PRN, other, opioid withdrawal score 12-24, Starting on Sat11/19/23 at 0000, For 2 days, Hold clonidine if blood pressure is less than 90/60 or heart rate less than 60 and notify physician., Indications: Opioid Withdrawal Symptoms Group 2: cloNIDine (CATAPRES) tablet 0.1 mgJump to med 0.1 mg, oral, 2 times daily PRN, other, opioid withdrawal score 5-11, Starting on Tania 11/21/23 at 0000, For 2 days, Hold clonidine if blood pressure is less than 90/60 or heart rate less than 60 and notify physician., Indications: Opioid Withdrawal Symptoms Or cloNIDine (CATAPRES) tablet 0.1 mgJump to med 0.1 mg, oral, 4 times daily PRN, other, opioid withdrawal score 12-24, Starting on Tania 11/21/23 at 0000, For 2 days, Hold clonidine if blood pressure is less than 90/60 or heart rate less than 60 and notify physician., Indications: Opioid Withdrawal Symptoms Group 3: cloNIDine (CATAPRES) tablet 0.2 mgJump to med 0.2 mg, oral, 4 times daily PRN, other, opioid withdrawal score 5-11, Starting on Tania 11/14/23 at 1828, For 4 days, Hold clonidine if blood pressure is less than 90/60 or heart rate less than 60 and notify physician., Indications: Opioid Withdrawal Symptoms Or cloNIDine (CATAPRES) tablet 0.3 mgJump to med 0.3 mg, oral, 4 times daily PRN, other, opioid withdrawal score 12-24, Starting on Tania 11/14/23 at 1828, For 4 days, Hold clonidine if blood pressure is less than 90/60 or heart rate less than 60 and notify physician. Group 4: ondansetron ODT (ZOFRAN-ODT) disintegrating tablet 4 mgJump to med 4 mg, oral, 3 times daily PRN, nausea, vomiting, Starting on Tania 11/14/23 at 1828, Indications: Nausea and Vomiting Or ondansetron (ZOFRAN) injection 4 mgJump to med 4 mg, intravenous, Administer over 2 Minutes, 3 times daily PRN, nausea, vomiting, if not tolerating PO, Starting on Tania 11/14/23 at 1828, Indications: Nausea and Vomiting documented in this encounter Orders Medications Ordered That Sahil ht Not Have Been Administered Count Last Ordered Date First Ordered Date sucralfate (CARAFATE) tablet 1 g 1 11/16/19 cloNIDine (CATAPRES) tablet 0.1 mg 3 2023 cloNIDine (CATAPRES) tablet 0.2 mg 1 2023 cloNIDine (CATAPRES) tablet 0.3 mg 1 2023 dicyclomine (BENTYL) tablet 20 mg 1 loperamide (IMODIUM) capsule 2 mg 1 loperamide (IMODIUM) capsule 4 mg 1 024 ondansetron (ZOFRAN) injection 4 mg 1 11/13 ondansetron ODT (ZOFRAN-ODT) disintegrating tablet 4 mg 1 11/14/2023 Diet Count Last Ordered Date First Orde red Date ADULT DISCHARGE DIET 1 11/17/2023 Nursing Count Last Ordered Date First Orde red Date DISCHARGE ACTIVITY 11/17/2023 DISCHARGE INSTRUCTIONS 11/17/2023 Admission Count Last Ordered Date First Orde red Date ADMIT TO INPATIENT 1 11/14/2023 Discharge Count Last Ordered Date First Orde red Date DISCHARGE PATIENT 1 11/17/2023 documented in this encounter Care Teams Teacher Physically Impaired Relationship Specialty Start Date End Date Osbaldo Hong MD [address] [place] [id number] PCP - General 01/13/19 documented as of this encounter
--- OUTSIDE RECORDS SUMMARY | 2024-05-26 02:46 | XMS_ITS | Encounter Summary ---
Author Organization [facility] Healthcare Address [address] [place] [address] Care Team Providers Care Band Nailer Name Role Phone Osbaldo Hong MD Primary Care Provider [phone]- [phone] Encounter Details Date Type Department Care Team (Late st Contact Info) Description 01/18/2020 12:32 PM CDT - 01/18/2020 4:26 PM CDT Hospital Encounter [facility] Emergency Department [address] [place] [address] Unknown, Ravindra Barnett, DO [address] [facility] [place] [address] Discharge Disposition: Discharge to home or self care Social History Tobacco Use Types Packs/Day Years Used Date Smoking Tobacco: Never Smokeless Tobacco: Never Alcohol Use Standard Drinks/Week Comments Yes 0 (1 standard drink = 0.6 oz pur e alcohol) Sex and Gender Information Value Date Recorded Sex Assigned at Not on file Legal Sex Male 6:55 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 Gender Identity Not on file Sexual Orientation Not on file documented as of this encounter Last Filed Vital Signs Vital Sign Reading Time Taken Comments Blood Pressure 131/82 01/18/2020 12:48 PM CDT Pulse 95 01/18/2020 12:48 PM CDT Temperature 36.8 ??C (98.2 ??F) 01/18/2020 12:48 PM C DT Respiratory Rate - - Oxygen Saturation 95% 01/18/2020 12:48 PM CDT Inhaled Oxygen Concentration - - Weight 136.9 kg (301 lb 13 oz) 01/18/2020 12:48 PM CDT Height 185.4 cm (6' 1 ) 01/18/2020 12:48 PM CDT Body Mass Index 39.82 01/18/2020 12:48 PM CDT documented in this encounter Medications at Time of Discharge amitriptyline (ELAVIL) 10 mg tablet 08/26/2018 4 chlordiazePOXIDE -clidinium (LIBRAX) 5-2.5 mg per [...] Discharge Disposition Disposition Code Departure Means Destination Discharge to home or self care documented in this encounter Plan of Treatment Not on file documented as of this encounter Procedures Procedure Name Priority Date/Time Associated Diagnosis Comments SCAN - LABS 01/19/2020 12:00 AM CDT CBC WITH AUTO DIFFERENTIAL Routine 01/18/2020 2:06 PM CDT LIPASE Routine 01/18/2020 2:06 PM CDT COMPREHENSIVE METABOLIC PANEL Routine 01/18/2020 2:[address] ABDOMEN PELVIS W CONTRAST 01/18/2020 12:00 AM CDT documented in this encounter Results * SCAN - LABS (01/19/2020 12:00 AM CDT) Narrative 01/19/2020 12:00 AM CDT Ordered by an unspecified provider. us Historical Provider Final Res ult * Lipase (01/18/2020 2:06 PM CDT) Lipase 22 13 - 60 U/L [facility] 01/18/2020 2:06 PM CDT 01/18/2020 2:12 PM CDT Narrative Resulting Agency Comment ER us Tammi YenJoana Bolaños SURGICAL PHYSICIAN ASSISTANT LAB BLOOD ORDERABLES Final Resu lt [facility] [address] [phone] * (ABNORMAL) Comprehensive metabolic panel (01/18/2020 2:06 PM CDT) Sodium 137 135 - 145 mmol/L [facility] Potassium 4.2 3.3 - 5.1 mmol/L [facility] Chloride 99 96 - 108 mmol/L [facility] Carbon Dioxide 25 22 - 32 mmol/L [facility] Anion Gap 13 7 - 16 [facility] Glucose 96 70 - 100 mg/dL [facility] BUN 16 8 - 25 mg/dL [facility] Creatinine 0.8 0.5 - 1.3 mg/dL [facility] Comment: NOTE: Estimated GFR (Cockroft-Gault) will NOT be calculated unless patient Height and Weight were entered. Also, Kidney Disease Stage (GFR) and Estimated GFR (Cockroft-Gault) will NOT be calculated if Creatinine result is <0.2. Kidney Disease Stage >90 mL/MIN [facility] Comment: NOTE; ??The GFR is an estimated value using the creatinine, sex, age, and race of the patient. THE Estimated Kidney Disease GFR is validated for AGES 18-70 YEARS STAGE ?mL/Min ?DESCRIPTION ??1 ?90 mL/min or more ?Normal or elevated GFR ??2 ? 60-89 mL/min ?Mildly decreased GFR ??3 ? 30-59 mL/min ?Moderately decreased GFR ??4 ? 15-29 mL/min ?Severely decreased GFR ??5 ? <15 mL/min ? Kidney failure or on dialysis Est GFR (Cockcroft-G) 212 ml/MIN [facility] Comment: Estimated GFR(Cockroft-Gault)is used to calculate patient medication dosage Calcium 10.1 8.6 - 10.3 mg/dL [facility] Total Protein 7.1 6.4 - 8.3 g/dL [facility] Albumin 4.6 3.5 - 5.0 g/dL [facility] Globulin 2.5 2.3 - 3.5 gm/dL [facility] Albumin/Globulin Ratio 1.8 1.1 - 1.8 [facility] Total Bilirubin 0.6 0.0 - 1.2 mg/dL [facility] AST 26 0 - 40 U/L [facility] ALT 43(H) 0 - 41 U/L [facility] Alkaline Phosphatase 89 40 - 129 U/L [facility] 01/18/2020 2:06 PM CDT 01/18/2020 2:12 PM CDT Narrative Resulting Agency Comment ER Tammi Bolaños SURGICAL PHYSICIAN ASSISTANT LAB BLOOD ORDERABLES Final Resu lt Performing Organization Address City/State/[facility] Co de Phone Number [facility] [address] [phone] * (ABNORMAL) CBC with auto differential (01/18/2020 2:06 PM CDT) WBC 12.4(H) 3.8 - 9.9 X10 3/ul [facility] RBC 5.39 4.30 - 5.80 x10 6/ul [facility] Hemoglobin 15.2 13.0 - 17.5 g/dL [facility] Hct 44.6 38.9 - 50.3 % [facility] MCV 82.7 81.3 - 96.4 fl [facility] MCH 28.2 27.1 - 33.3 pg [facility] MCHC 34.1 32.3 - 35.7 g/dl [facility] RDW 12.7 11.1 - 14.9 % [facility] Plt Count 272 150 - 400 x10 3/ul [facility] MPV 9.8 9.1 - 12.3 fl [facility] Neut % 65.0 % [facility] Immature Gran % 0.6 % [facility] Lymph % 25.9 % [facility] E [employer] Mcpherson % 7.1 % [facility] E AST - [employer] Eos % 1.0 % [facility] E [employer] [facility] AUTO BASO % 0.4 % [facility] NEUTROPHIL ABS # 8.1(H) 1.7 - 6.5 x10 3/ul [facility] Immature Gran # 0.1 0.0 - 0.1 x10 3/ul [facility] Absolute Lymphs (auto) 3.2 0.8 - 3.3 x10 3/ul [facility] Absolute Monos (auto) 0.9(H) 0.2 - 0.8 x10 3/ul [facility] Absolute Eos (auto) 0.1 0.0 - 0.5 x10 3/ul [facility] BASOPHIL ABS # 0.1 0.0 - 0.1 x10 3/ul [facility] Nucleat RBC Rel Count 0.0 #/100WBC [facility] NRBC abs 0.00 0.00 - 0.01 x10 3/ul [facility] Absolute Neutrophils 8,100(H) 200 - 8,000 /ul [facility] 01/18/2020 2:06 PM CDT 01/18/2020 2:12 PM CDT Narrative Resulting Agency Comment ER us Tammi Bolaños SURGICAL PHYSICIAN ASSISTANT LAB BLOOD ORDERABLES Final Resu lt [facility] [address] [phone] * CT Abdomen Pelvis W Contrast (01/18/2020 12:00 AM CDT) Anatomical Region Laterality Modality Body N/A Computed Tomogra phy 01/18/2020 3:51 PM CDT Narrative 01/18/2020 3:54 PM CDT Patient Name: JESSE LUNSFORD ?Ordering Dr: Tammi Bolaños ANP ?? D.O.B: 2000 ? Exam Date: 01/18/20 ?? 0000 ?? Age: 19 ?Sex: Male ? MR#: [id number] ?? Loc: ? RADIOLOGY REPORT ?? Order #[id number] ?? CT Scan ? CT Abd/Pelvis W IV Contrast ? Signed ? EXAM DESCRIPTION: ?? CT Abd/Pelvis W IV Contrast ? REASON FOR STUDY: ?? Left-sided abdominal pain for 6 days. ??Bloody stools. ? TECHNIQUE: ??CT scan of the abdomen and pelvis performed with intravenous and ? without oral contrast using helical scanning technique with dynamic ?? intravenous contrast injection. Reconstructed coronal and sagittal MPR images ?? reviewed. All images stored on PACS. ? Automated exposure control was used as a dose optimization technique for this ?? examination. ? CONTRAST TYPE/DOSE: ?? PATIENT RECIEVED 100CC OPTIRAY 350 INJECTED INTO RAC ? COMPARISON: ?? 07/23/2018 ? FINDINGS: ? LOWER CHEST: ??No significant pulmonary abnormalities. No effusion. ? LIVER: ??Decreased attenuation as seen with fibrofatty changes ? GALLBLADDER: ??Unremarkable gallbladder. ? BILE DUCTS: ??No intrahepatic or extrahepatic ductal dilatation. ? SPLEEN: ??Normal size. ??No focal lesions. ? PANCREAS: ??No identified cystic or solid masses. No significant ?? calcifications. No adjacent inflammation or peripancreatic fluid collections. ?? Pancreatic duct not dilated. ? ADRENALS: ??Normal. ? KIDNEYS/URINARY TRACT: ??No identified significant cystic or solid masses. No ?? visualized stones. No hydronephrosis or hydroureter. Symmetric enhancement. ? Urinary bladder is unremarkable. ? GI: ??No dilated bowel loops. No obvious wall thickening. ??Normal appendix. ??No ?? significant diverticular disease. ? PERITONEUM: ??Prominent mesenteric lymph nodes are present in the right lower ?? quadrant which may represent mesenteric adenitis. ? RETROPERITONEUM: ??No mass or adenopathy. ? REPRODUCTIVE: ??No significant abnormality. ? VASCULATURE: ??No abdominal aortic aneurysm. ? MUSCULOSKELETAL: ??No significant abnormality. ? OTHER: ??No other abnormality. ? IMPRESSION: ?? The appendix is normal. ? Slightly prominent mesenteric lymph nodes of the right lower quadrant which ?? may represent mesenteric adenitis. ? THIS IS AN ELECTRONICALLY VERIFIED FINAL REPORT ?? 01/18/2020 3:54 PM - Electronically signed by Aj Link M.D. ?? Aj Link M.D. ? NC: NC ?? D: ??01/18/2020 3:54 PM ?? T: ??01/18/2020 3:54 PM ? Report ID: [id number] ?? Reading Location: ??[id number] ? REPORT ELECTRONICALLY SIGNED IN OTHER VENDOR SYSTEM ?? Resulting Agency Comment E Procedure Note Aj Link MD - 01/18/2020 Patient Name: JESSE LUNSFORDchandlertimi Dr: Tammi Bolaños D.O.B: 2000 Exam Date: 01/18/20 0000 Age: 19 Sex: Male MR#: [id number] Loc: RADIOLOGY REPORT Order #[id number] CT Scan CT Abd/Pelvis W IV Contrast Signed EXAM DESCRIPTION: CT Abd/Pelvis W IV Contrast REASON FOR STUDY: Left-sided abdominal pain for 6 days. Bloody stools. TECHNIQUE: CT scan of the abdomen and pelvis performed with intravenousand without oral contrast using helical scanning technique with dynamic intravenous contrast injection. Reconstructed coronal and sagittal MPRimages reviewed. All images stored on PACS. Automated exposure control was used as a dose optimization technique forthis examination. CONTRAST TYPE/DOSE: PATIENT RECIEVED 100CC OPTIRAY 350 INJECTED INTORAC COMPARISON: 07/23/2018 FINDINGS: LOWER CHEST: No significant pulmonary abnormalities. No effusion. LIVER: Decreased attenuation as seen with fibrofatty changes GALLBLADDER: Unremarkable gallbladder. BILE DUCTS: No intrahepatic or extrahepatic ductal dilatation. SPLEEN: Normal size. No focal lesions. PANCREAS: No identified cystic or solid masses. No significant calcifications. No adjacent inflammation or peripancreatic fluidcollections. Pancreatic duct not dilated. ADRENALS: Normal. KIDNEYS/URINARY TRACT: No identified significant cystic or solid masses.No visualized stones. No hydronephrosis or hydroureter. Symmetricenhancement. Urinary bladder is unremarkable. GI: No dilated bowel loops. No obvious wall thickening. Normalappendix. No significant diverticular disease. PERITONEUM: Prominent mesenteric lymph nodes are present in the rightlower quadrant which may represent mesenteric adenitis. RETROPERITONEUM: No mass or adenopathy. REPRODUCTIVE: No significant abnormality. VASCULATURE: No abdominal aortic aneurysm. MUSCULOSKELETAL: No significant abnormality. OTHER: No other abnormality. IMPRESSION: The appendix is normal. Slightly prominent mesenteric lymph nodes of the right lower quadrantwhich may represent mesenteric adenitis. THIS IS AN ELECTRONICALLY VERIFIED FINAL REPORT 01/18/2020 3:54 PM - Electronically signed by Aj Link M.D. NC: GAIL Report ID: [id number] Reading Location: [place] [address] REPORT ELECTRONICALLY SIGNED IN OTHER VENDOR SYSTEM us Tammi Bolaños SURGICAL PHYSICIAN ASSISTANT IMG CT PROCEDURES Final Result documented in this encounter Visit Diagnoses Not on filedocumented in this encounter Care Teams Band Nailer Relationship Specialty Start Date End Date Osbaldo Hong MD [address] [place] [id number] PCP - General 01/13/19 documented as of this encounter
--- OUTSIDE RECORDS SUMMARY | 2024-05-26 02:46 | XMS_ITS | Clinical Summary ---
Author Organization [place] [id number] [facility] Address Critical access hospital[address] [place] [address] Care Team Providers Care It Desktop Support Specialist Name Role Phone Osbaldo Hong MD Primary Care Provider +1- [phone] Allergies No known active allergies Medications pregabalin [...] Noted Date Diagnosed Date Opiate withdrawal 11/14/2023 Encounters Date Type Department Care Team Description 05/18/2024 1:38 PM FRUIT CHECKER - 05/18/2024 2:27 PM [facility] Emergency [facility] Emergency Department [address] [place] [address] [id number] Discharge Disposition: Left without being seen from Last 3 Months Medical History Medical History Date Comments Polysubstance abuse (CMS/HCC) (HCC) Marijuana use Social History Tobacco Use Types Packs/Day Years Used Date Smoking Tobacco: Never Smokeless Tobacco: Never Alcohol Use Standard Drinks/Week Comments Not Currently 0 (1 standard drink = 0.6 oz pur e alcohol) [facility] Utilities Answer Date Recorded In the past [...] often do you attend chur ch or hoahaoism services? Never 11/15/2023 Do you belong to any clubs o r organizations such as samaritan groups, unions, fraternal or athletic groups, or [...] any time in the past 12 [facility], were you homeless or living in a alf (including now)? No 11/15/2023 Personal Safety Answer Date Recorded Have you ever been in or are you currently in a harmful physical or emotional relationship or is someone making you feel afraid or unsafe? 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 Gender Identity Not on file Sexual Orientation Not on file Obstetrics History Last Filed Vital Signs Vital Sign Reading [...] 11/14/2023 6:14 PM CDT Plan of Treatment Health Maintenance Due Date Last Done Comments Depression Screening 1998 Varicella Vaccines (2 of 2 - 2-dose childhood series) 05/11/2003 02/16/2003 DTaP/Tdap/Td Vaccine (5 - Tdap) 2009 12/28/2003, 01/15/2000, 04/17/1999, Additional history exists HPV Vaccines (1 - Male 3-dose series) 2013 Regular Well Visit/Exam 18-64 2016 Influenza Vaccine (#1) 2024 Hepatitis C Screening Completed 11/14/2023 Pneumococcal vaccine <65 Aged Out No longer eligible based on [...] 19. Hep B core IgM Nonreactive Nonreactive [facility] Comment: Interpretive Data If HepB Core IgM Ab is reported as Equivocal, a new sample should be drawn in two weeks for testing. Current interpretive data was last revised on 19. Hep C Ab Nonreactive Nonreactive [facility] Comment: Antibodies to HCV not detected. Does [...] last revised on 2019. HepBsAg Nonreactive Nonreactive [facility] Blood 11/14/2023 8:48 PM CDT 11/14/2023 9:19 PM CDT Javon Garcia MD LAB MICROBIOLOGY - NERAL ORDERABLES Final Result [facility] [address] [facility] Department [place] [address] from Last 3 Months or Most Recently Relevant to Health Maintenance Insurance [facility] CIG Advance Directives For more information, please contact: [phone] * Full Code (Latest Code Status on File) Date Activated Date Inactivated Comments 11/14/2023 4:42 PM 11/17/2023 5:47 PM Care Teams It Desktop Support Specialist Relationship Specialty Start Date End Date Osbaldo Hong MD [address] [place] [address] PCP - General 01/13/19
--- OUTSIDE RECORDS SUMMARY | 2024-05-26 02:46 | XMS_ITS | Encounter Summary ---
Author Organization [facility] Healthcare Address [address] [place] [address] Care Team Providers Care Receivable Executive Name Role Phone Osbaldo Hong MD Primary Care Provider [phone] Reason for Visit * Reason Comments COVID-19 EVALUATION Cough Shortness of Breath Sore Throat Encounter Details Date Type Department Care Team (Late st Contact Info) Description 06/25/2021 12:12 PM PURIFICATION DIRECTOR - 06/25/2021 1:27 PM PURIFICATION DIRECTOR Emergency [facility] Emergency Department [address] [place] [address] Cough (Primary Dx); Shortness of breath; Pneumonia due to infectious organism, unspecified laterality, unspecified part of lung Discharge Disposition: Discharge to home or self care Social History Tobacco Use Types Packs/Day Years Used Date Smoking Tobacco: Never Smokeless Tobacco: Never Alcohol Use Standard Drinks/Week Comments Yes 0 (1 standard drink = 0.6 oz pur e alcohol) Sex and Gender Information Value Date Recorded Sex Assigned at Not on file Legal Sex Male 6:55 PM PURIFICATION DIRECTOR Gender Identity Not on file Sexual Orientation Not on file documented as of this encounter Last Filed Vital Signs Vital Sign Reading Time Taken Comments Blood Pressure 105/74 06/25/2021 1:26 PM PURIFICATION DIRECTOR Pulse 96 06/25/2021 1:26 PM PURIFICATION DIRECTOR Temperature 36.6 ??C (97.8 ??F) 06/25/2021 1 1:38 AM PURIFICATION DIRECTOR Respiratory Rate 18 06/25/2021 1:26 PM PURIFICATION DIRECTOR Oxygen Saturation 97% 06/25/2021 1:26 PM PURIFICATION DIRECTOR Inhaled Oxygen Concentration - - Weight 142.7 kg (314 lb 9.5 oz) 022 11:38 AM PURIFICATION DIRECTOR Height 185.4 cm (6' 1 ) 06/25/2021 11:3 8 AM PURIFICATION DIRECTOR Body Mass Index 41.51 06/25/2021 11:38 AM PURIFICATION DIRECTOR documented in this encounter Discharge Instructions * Discharge Instructions* Deepti Evans PA - 06/25/2021 1:19 PM PURIFICATION DIRECTOR Patient should take antibiotics as prescribed, and continued Tessalon Perles as needed for relief of cough. Can also use [id number] medications for symptom relief if needed. Follow-up with primary care provider if symptoms persist or do not improve. Or worsening shortness of breath. FICATION DIRECTOR * Attachments The following attachments cannot be sent through Care Everywhere. * Shortness of Breath (Stereo Operator) (Dominican) * Community Acquired Pneumonia (AfterCare(R) Instructions(ER/ED)) (Dominican) documented in this encounter Medications at Time [...] 07/30/2018 4 documented as of this encounter Ordered Prescriptions Prescription Sig Dispense Quantity Refills Last Filled Start Date End Date benzonatate (TESSALON) 100 mg capsuleIndications :Cough Take 1 capsule (100 mg total) by mouth every 8 (eight) hours 21 capsule 06/25/2021 4 azithromycin (Zithromax Z-Lazaro) 250 mg tablet Take 1 tablet (250 mg total) by mouth daily Take first 2 tablets together, then 1 every day until finished. 6 tablet 06/25/2021 4 documented in this encounter Discharge Disposition Disposition Code Departure Means Destination Discharge to home or self care documented in this encounter ED Notes * Deepti Evans PA - 06/25/2021 11:39 AM CST HPI Chief Complaint Patient presents with ??? COVID-19 EVALUATION ??? Cough ??? Shortness of Breath ??? Sore Throat HPI 11:39 AM Aj Lunsford is a 21 y.o. male presenting to the ED c/o sore throat and chest congestionfor the past 6 days. Has had some fever and chills, states he has been taking dayquil and nyquil for symptom relief. He has had a persist cough. Denies nausea, vomiting, changes in bowels. Having some increased shortness of breath. Denies hx of asthma or diabetes. Took a home covid test 4 days ago and was negative. Patient has not had covid vaccines. Patient History: No past medical history on file. No past surgical history on file. No family history on file. Social History Tobacco Use ??? Smoking status: Never Smoker ??? Smokeless tobacco: Never Used Substance Use Topics ??? Alcohol use: Yes ??? Drug use: Yes Types: Marijuana No current facility-administered medications for this encounter. Current Outpatient Medications: ??? amitriptyline (ELAVIL) 10 mg tablet ??? azithromycin (Zithromax Z-Lazaro) 250 mg tablet ??? benzonatate (TESSALON) 100 mg capsule ??? chlordiazePOXIDE-clidinium (LIBRAX) 5-2.5 mg per capsule ??? famotidine (PEPCID) 20 mg tablet ??? omeprazole (PriLOSEC) 20 mg capsule ??? prochlorperazine (COMPAZINE) 5 mg tablet Review of Systems Review of Systems Constitutional: Negative for chills and fever. HENT: Positive for sore throat. Negative for trouble swallowing. Respiratory: Positive for cough and shortness of breath. Cardiovascular: Negative for chest pain and palpitations. Gastrointestinal: Negative for abdominal pain, diarrhea, nausea and vomiting. Musculoskeletal: Positive for myalgias. Negative for arthralgias and back pain. Skin: Negative for color change and rash. Neurological: Negative for dizziness, syncope and light-headedness. All other systems reviewed and are negative. All systems reviewed and are neg or non contributory for this patients presentation today other than as stated in the HPI . Physical Exam ED Triage Vitals Temp Pulse Resp BP SpO2 06/25/21 1138 06/25/21 1138 06/25/21 1138 06/25/21 1138 06/25/21 1138 36.6 ??C (97.8 ??F) 101 24 119/77 96 % Temp src Heart Rate Source Patient Position BP Location FiO2 (%) 06/25/21 1138 06/25/21 1326 06/25/21 1326 06/25/21 1326 -- Oral Monitor Sitting Left arm Physical Exam Vitals and nursing note reviewed. Constitutional: Appearance: He is well-developed. HENT: Head: Normocephalic and atraumatic. Eyes: Conjunctiva/sclera: Conjunctivae normal. Cardiovascular: Rate and Rhythm: Normal rate and regular rhythm. Heart sounds: Normal heart sounds. No murmur heard. Pulmonary: Effort: Pulmonary effort is normal. No respiratory distress. Breath sounds: Examination of the left-upper field reveals rhonchi. Examination of the left-middle field reveals rhonchi. Rhonchi present. Abdominal: Palpations: Abdomen is soft. Tenderness: There is no abdominal tenderness. Musculoskeletal: Cervical back: Neck supple. Skin: General: Skin is warm and dry. Neurological: Mental Status: He is alert and oriented to person, place, and time. Procedures MDM Labs Reviewed CBC WITH AUTO DIFFERENTIAL - Abnormal Result Value WBC 12.9 (*) Hgb 15.5 Hct 46.6 Plt 266 MPV 10.7 RBC 5.59 MCV 83.4 MCH 27.7 MCHC 33.3 RDW CV 12.6 RDW SD 38.4 NRBC abs 0.00 COMPREHENSIVE METABOLIC PANEL - Abnormal Sodium 138 Potassium, pl 4.3 Chloride 103 CO2 23 Anion gap 12 BUN 14 Creatinine 0.70 (*) Glucose 99 Calcium 9.6 Bilirubin, total 0.8 Protein, pl 7.2 Albumin 4.2 Alk phos 103 ALT 34 AST 22 DIFFERENTIAL AUTO - Abnormal Neutrophil abs 9.1 (*) Imm gran abs 0.1 Lymphocyte abs 2.5 Monocyte abs 0.9 (*) Eosinophil abs 0.4 Basophil abs 0.1 Neutrophil pct 70.2 Imm gran pct 0.5 Lymphocyte pct 19.0 Monocyte pct 6.6 Eosinophil pct 3.2 Basophil pct 0.5 INFLUENZA A/B AND COVID-19 PCR COVID-19 RNA Not Detected Influenza A RNA Not Detected Influenza B RNA Not Detected First COVID-19 test? No Employeed in healthcare? No Group care resident? No Hospitalized? No Is patient in ICU? No Symptomatic as defined by CDC? Yes Narrative: Date of Symptom Onset->06/19/21 Reason for testing?->Symptomatic EGFR eGFR 133 XR Chest 1 View Final Result FINDINGS: VASCULATURE: No identified pulmonary emboli. ?? LUNGS: No nodules or masses. No pneumonia. ?? PLEURA: No effusion. No pneumothorax. ?? MEDIASTINUM/RENAE: No identified masses or abnormal nodes. ?? HEART: Heart size is normal with no pericardial effusion. ?? AXILLA: No adenopathy. ?? CHEST WALL: No masses. No subcutaneous air. ?? HARDWARE/LINES/TUBES: None. ?? UPPER ABDOMEN: No significant abnormality. ?? MUSCULOSKELETAL: No significant abnormality. ?? OTHER: No significant abnormality. IMPRESSION: No evidence of pulmonary embolism. Normal CT of the chest. BP 105/74 (BP Location: Left arm, Patient Position: Sitting) Pulse 96 Temp 36.6 ??C (97.8 ??F) (Oral) Resp 18 Ht 185.4 cm (6' 1 ) Wt (!) 142.7 kg (314 lb 9.5 oz) SpO2 97% BMI 41.51 kg/m?? [facility] ED Course as of 06/28/21 0849 Time: 06/25 1229 Value: WBC(!): 12.9 Comment: (Reviewed) By: Deepti Evans PA Patient presents for evaluation of chest congestion, persistent cough, and increasing shortness of breath for the past week. Denies history of asthma or diabetes. Slightly tachycardic and tachypneic on initial presentation. No elevation in temperature. Rhonchi are heard in left lung on exam. WBC iselevated at 12.9, no other abnormalities noted to labs. Chest xray shows possible pneumonia. Patient discharged home with z-lazaro and tessalon prescription. Return symptoms discussed, patient expressesunderstanding and is agreeable to plan. All questions answered. This examination was transcribed using the [employer] voice recognition system without human senior technical recruiter. In an effort to expedite patient care, this report has not been adjusted for typographical, grammatical, and syntax by a trained emergency medicine medical director. Close outpatient follow-up with a low threshold to return has been mandated , concerning symptoms have been emphasized in detail, and this patient expresses understanding Clinical Impression: Cough Shortness of breath Pneumonia due to infectious organism, unspecified laterality, unspecified part of lung Deepti Evans PA 06/28/21 0853 Cosigned by Chad Melendez MD at 06/29/2021 11:03 AM PURIFICATION DIRECTOR FICATION DIRECTOR FICATION DIRECTOR Associated attestation - Chad Melendez MD - 06/29/2021 11:03 AM PURIFICATION DIRECTOR ED Attestation This patient was independently evaluated by the APC. I was available for immediate consultation andin-person evaluation if required but was not asked to do so. * Ju Woodruff RN - 06/25/2021 11:36 AM CST Onset of symptoms 9 days ago, home COVID test 4 days ago NEG. Continues to have worsening cough with SOB, sore throat. FICATION DIRECTOR documented in this encounter Plan of Treatment Not on file documented as of this encounter Procedures Procedure Name Priority Date/Time Associated Diagnosis Comments XR CHEST 1 VIEW ED 06/25/2021 12:19 PM PURIFICATION DIRECTOR EGFR STAT 06/25/2021 11:55 AM PURIFICATION DIRECTOR DIFFERENTIAL AUTO STAT 06/25/2021 11: 55 AM PURIFICATION DIRECTOR CBC WITH AUTO DIFFERENTIAL STAT 06/25/2021 11:55 AM PURIFICATION DIRECTOR COMPREHENSIVE METABOLIC PANEL STAT 06/25/2021 11:55 AM PURIFICATION DIRECTOR INFLUENZA A/B AND COVID-19 PCR Routine 06/25/2021 11:45 AM PURIFICATION DIRECTOR documented in this encounter Results * XR Chest 1 View (06/25/2021 12:19 PM PURIFICATION DIRECTOR) Anatomical Region Laterality Modality Body, Chest N/A Computed Radiogr aphy 06/25/2021 1:02 PM PURIFICATION DIRECTOR Narrative 06/25/2021 1:03 PM PURIFICATION DIRECTOR EXAM DESCRIPTION: ?? XR CHEST 1 VIEW REASON FOR STUDY: ?? shortness of breath, productive cough ?? Onset of symptoms 9 days ago, home COVID test 4 days ago NEG. Continues to have worsening cough with SOB, sore throat ?? TECHNIQUE: ?? Frontal ??radiographic view of the chest acquired. COMPARISON: ?? 07/23/2018. FINDINGS: Minimal bilateral airspace opacities. ??No pleural effusion or pneumothorax. Heart size and mediastinal contours are normal. IMPRESSION: ?? 1. ?? Minimal bilateral airspace opacities. ??This may represent mild atelectasis or pneumonia. THIS IS AN ELECTRONICALLY VERIFIED FINAL REPORT 06/25/2021 1:03 PM - Electronically signed by ??Vince Yen M.D. AG: MIKE D: ??06/25/2021 1:03 PM T: ??06/25/2021 1:03 PM Report ID: [id number] Reading Location: ??[id number] Procedure Note Vince Yen MD - 06/25/2021 EXAM DESCRIPTION: XR CHEST 1 VIEW REASON FOR STUDY: shortness of breath, productive cough Onset of symptoms 9 days ago, home COVID test 4 days ago NEG. Continues to have worsening cough with SOB, sore throat TECHNIQUE: Frontal radiographic view of the chest acquired. COMPARISON: 07/23/2018. FINDINGS: Minimal bilateral airspace opacities. No pleural effusion orpneumothorax. Heart size and mediastinal contours are normal. IMPRESSION: 1. Minimal bilateral airspace opacities. This may represent mild atelectasis or pneumonia. THIS IS AN ELECTRONICALLY VERIFIED FINAL REPORT 06/25/2021 1:03 PM - Electronically signed by Vince Yen M.D. AG: MIKE Report ID: [id number] Reading Location: [place] [address] Deepti DAVIS IMG XR PROCEDURES Final Res ult * eGFR (06/25/2021 11:55 AM PURIFICATION DIRECTOR) eGFR 133 mL/min/1. 73 m2 MIRTHA LUTHER [...] of Race in Diagnosing Kidney Disease, JASN 2021). The CKD-EPI equation should not be used for patients with unstable renal function and has not been validated in children and those over 70. Current interpretive data was last reviewed 2021. Testing performed by: [address] [address] Blood 06/25/2021 11:5 5 AM PURIFICATION DIRECTOR 06/25/2021 11:59 AM PURIFICATION DIRECTOR us Deepti DAVIS LAB BLOOD ORDERABLES Final Result [facility] [address] [facility] Department [place] [address] * (ABNORMAL) Differential, auto (06/25/2021 11:55 AM PURIFICATION DIRECTOR) Neutrophil abs 9.1(H) 1.7 - 6.5 K/cumm MIRTHA Comment:Testing performed by : [address] [address] Imm gran abs 0.1 0.0 - 0.1 K/cumm MIRTHA Comment:Testing performed by : [address] [address] Lymphocyte abs 2.5 0.8 - 3.3 K/cumm MIRTHA Comment:Testing performed by : [address] [address] Monocyte abs 0.9(H) 0.2 - 0.8 K/cumm MIRTHA Comment:Testing performed by : [address] [address] Eosinophil abs 0.4 0.0 - 0.5 K/cumm MIRTHA Comment:Testing performed by : [address] [address] Basophil abs 0.1 0.0 - 0.1 K/cumm MIRTHA Comment:Testing performed by : [address] [address] Neutrophil pct 70.2 % MIRTHA Comment: Interpretive Data Percent cell count reference ranges are not reported, since discordance with absolute values may lead to misinterpretation of CBC data. Current Interpretive Data was last revised on 2017. Testing performed by: [address] [address] Imm gran pct 0.5 % [facility] Comment: Interpretive Data Percent cell count reference ranges are not reported, since discordance with absolute values may lead to misinterpretation of CBC data. Current Interpretive Data was last revised on 2017. Testing performed by: [address] [address] Lymphocyte pct 19.0 % [facility] Comment: Interpretive Data Percent cell count reference ranges are not reported, since discordance with absolute values may lead to misinterpretation of CBC data. Current Interpretive Data was last revised on 2017. Testing performed by: [address] [address] Monocyte pct 6.6 % [facility] Comment: Interpretive Data Percent cell count reference ranges are not reported, since discordance with absolute values may lead to misinterpretation of CBC data. Current Interpretive Data was last revised on 2017. Testing performed by: [address] [address] Eosinophil pct 3.2 % [facility] Comment: Interpretive Data Percent cell count reference ranges are not reported, since discordance with absolute values may lead to misinterpretation of CBC data. Current Interpretive Data was last revised on 2017. Testing performed by: [address] [address] Basophil pct 0.5 % [facility] Comment: Interpretive Data Percent cell count reference ranges are not reported, since discordance with absolute values may lead to misinterpretation of CBC data. Current Interpretive Data was last revised on 2017. Testing performed by: [address] [address] Blood 06/25/2021 11:5 5 AM PURIFICATION DIRECTOR 06/25/2021 11:59 AM PURIFICATION DIRECTOR us Deepti DAVIS LAB BLOOD ORDERABLES Final Result [facility] [address] [facility] Department of Laboratories [place], [place] [id number] * (ABNORMAL) Comprehensive metabolic panel (06/25/2021 11:55 AM PURIFICATION DIRECTOR) [facility] Signature Sodium 138 135 - 145 mmol/L MIRTHA Comment:Testing performed by : [address] [address] Potassium, pl 4.3 3.3 - 4.9 mmol/L MIRTHA Comment:Testing performed by : [address] [address] Chloride 103 97 - 110 mmol/L MIRTHA Comment:Testing performed by : [address] [address] CO2 23 22 - 32 mmol/L MIRTHA Comment:Testing performed by : [address], [place]., [address] Anion gap 12 2 - 15 mmol/L MIRTHA Comment:Testing performed by : [address] [address] BUN 14 8 - 25 mg/dL MIRTHA Comment:Testing performed by : [address] [address] Creatinine 0.70(L) 0.80 - 1.30 mg/dL MIRTHA Comment:Testing performed by : [address] [address] Glucose 99 70 - 199 mg/dL MIRTHA Comment: Interpretive Data Fasting glucose >/= 126 [...] Current interpretive data was last revised 2017. Testing performed by: [address] [address] Calcium 9.6 8.5 - 10.3 mg/dL MIRTHA Comment:Testing performed by : [address] [address] Bilirubin, total 0.8 0.1 - 1.2 mg/dL MIRTHA LUTHER Comment:Testing performed by : [address] [address] Protein, pl 7.2 6.5 - 8.5 g/dL MIRTHA LUTHER Comment:Testing performed by : [address] [address] Albumin 4.2 3.5 - 5.0 g/dL MIRTHA Comment:Testing performed by : [address] [address] Alk phos 103 40 - 130 Units/L MIRTHA Comment:Testing performed by : [address] [address] ALT 34 7 - 55 Units/L MIRTHA LUTHER Comment:Testing performed by : [address], [address] AST 22 10 - 50 Units/L MIRTHA Comment:Testing performed by : [address] [address] Blood 06/25/2021 11:5 5 AM PURIFICATION DIRECTOR 06/25/2021 11:59 AM PURIFICATION DIRECTOR us Deepti DAVIS LAB BLOOD ORDERABLES Final Result [facility] [address] [facility] Department of Laboratories [place], [place] [id number] * (ABNORMAL) CBC with auto differential (06/25/2021 11:55 AM PURIFICATION DIRECTOR) WBC 12.9(H) 3.8 - 9.9 K/cumm MIRTHA LUTHER Comment:Testing performed by : [address] [address] Hgb 15.5 13.0 - 17.5 g/dL MIRTHA LUTHER Comment:Testing performed by : [address] [address] Hct 46.6 38.9 - 50.3 % MIRTHA LUTHER Comment:Testing performed by : [address] [address] Plt 266 150 - 400 K/cumm MIRTHA Comment:Testing performed by : [address] [address] MPV 10.7 9.1 - 12.3 fL MIRTHA Comment:Testing performed by : [address] [address] RBC 5.59 4.30 - 5.80 M/cumm MIRTHA Comment:Testing performed by : [address] [address] MCV 83.4 81.3 - 96.4 fL MIRTHA Comment:Testing performed by : [address] [address] MCH 27.7 27.1 - 33.3 pg MIRTHA Comment:Testing performed by : [address] [address] MCHC 33.3 32.3 - 35.7 g/dL MIRTHA Comment:Testing performed by : [address], [address] RDW CV 12.6 11.1 - 14.9 % MIRTHA Comment:Testing performed by : [address], [address] RDW SD 38.4 35.7 - 48.1 fL MIRTHA Comment:Testing performed by : [address] [address] NRBC abs 0.00 0.00 - 0.01 K/cumm MIRTHA Comment:Testing performed by : [address] [address] Blood 06/25/2021 11:5 5 AM PURIFICATION DIRECTOR 06/25/2021 11:59 AM PURIFICATION DIRECTOR us Deepti DAVIS LAB BLOOD ORDERABLES Final Result [facility] [address] [facility] Department [place] [address] * Influenza A/B and COVID-19 PCR Nasopharyngeal (06/25/2021 11:45 AM PURIFICATION DIRECTOR) COVID-19 RNA Not Detected MIRTHA LUTHER Comment: Interpretive Data Synonyms for this test include: PCR and NAAT . ??Testing performed by the [facility] Molecular Infectious Disease Laboratory. The 2019-Novel Coronavirus Assay (COVID-19) Real Time RT-PCR assay is for in vitro diagnostic use under FDA emergency use authorization only. A negative RT-PCR result does not preclude infection with COVID-19 and should not be used as the sole basis for treatment or other patient management decisions. ??Additional sample types have been validated according to CLIA regulations. ?? Current Interpretive Data was last revised on June 30, 2020. Testing performed by: [facility], [address] [place] [address]., [address] Influenza A RNA Not Detected MIRTHA Comment:Testing performed by : [facility], [address] [place] [address], [address] Influenza B RNA Not Detected MIRTHA Comment: Interpretive Data Testing performed by the [facility] Molecular Infectious Disease Laboratory. This test is performed using the breana Influenza A/B Assay. This is a real-time RT-PCR test for the qualitative detection of nucleic acid from Influenza A and Influenza B. This assay has been reviewed by the FDA for Emergency Use Authorization (EUA). The performance characteristics have been verified by the [facility]. Results should be interpreted in combination with clinical context and a negative result does not rule out infection. ?? Interpretive data last revised 2020. Testing performed by: [facility], [address] [place] [address]., [address] First COVID-19 test? No MIRTHA Comment:Testing performed by : [facility], [address] [place] [address]., [address] Employeed in healthcare? No MIRTHA Comment:Testing performed by : [facility], [address] [facility], [address] Group care resident? No MIRTHA Comment:Testing performed by : [facility], [address] [facility], [address] Hospitalized? No [facility] Comment:Testing performed by : [facility], [address] [facility], [address] Is patient in ICU? No [facility] Comment:Testing performed by : [facility], [address] [facility], [address] Symptomatic as defined by CDC? Yes [facility] Comment:Testing performed by : [facility], [address] [facility], [address] Nasopharyngeal 06/25/2021 11 :45 AM PURIFICATION DIRECTOR 06/25/2021 4:29 PM PURIFICATION DIRECTOR Narrative [facility] - 06/25/2021 10:38 PM PURIFICATION DIRECTOR Date of Symptom Onset->06/19/21 Reason for testing?->Symptomatic us Deepti DAVIS LAB MICROBIOLOGY - GENERAL ORDERABLES Final Result Performing Organization Address City/State/[facility] Co de Phone Number [facility] [address] [facility] Department [place] [address] documented in this encounter Visit Diagnoses Diagnosis Cough- Primary Shortness of breath Pneumonia due to infectious organism, unspecified laterality, unspecified part of lung documented in this encounter Additional Health Concerns Infection Onset Date Last Indicated Resolved Time COVID: Suspected 06/25/2021 06/25/2021 06/25/2021 10:39 PM PURIFICATION DIRECTOR documented as of this encounter Care Teams Receivable Executive Relationship Specialty Start Date End Date Osbaldo Hong MD [address] [place] [address] PCP - General 01/13/19 documented as of this encounter
--- OUTSIDE RECORDS SUMMARY | 2024-05-26 02:46 | XMS_ITS | Encounter Summary ---
Author Organization [facility] Healthcare Address [address] [place] [address] Care Team Providers Care Cpht Name Role Phone Osbaldo Hong MD Primary Care Provider +1- [phone] Encounter Details Date Type Department Care Team (Late st Contact Info) Description 06/19/2020 9:58 AM NET DEVELOPMENT MANAGER - 06/19/2020 12:14 PM NET DEVELOPMENT MANAGER Emergency [facility] Emergency Department [address] [place] [address] Unknown, Nic Rueda PA [facility] [place] [address] Discharge Disposition: Discharge to home or self care Social History Tobacco Use Types Packs/Day Years Used Date Smoking Tobacco: Never Smokeless Tobacco: Never Alcohol Use Standard Drinks/Week Comments Yes 0 (1 standard drink = 0.6 oz pur e alcohol) Sex and Gender Information Value Date Recorded Sex Assigned at Not on file Legal Sex Male 6:55 PM NET DEVELOPMENT MANAGER Gender Identity Not on file Sexual Orientation Not on file documented as of this encounter Last Filed Vital Signs Vital Sign Reading Time Taken Comments Blood Pressure 120/86 06/19/2020 10:01 AM NET DEVELOPMENT MANAGER Pulse 86 06/19/2020 10:01 AM NET DEVELOPMENT MANAGER Temperature 36.7 ??C (98.1 ??F) 06/19/2020 1 0:01 AM NET DEVELOPMENT MANAGER Respiratory Rate - - Oxygen Saturation 97% 06/19/2020 10: 01 AM NET DEVELOPMENT MANAGER Inhaled Oxygen Concentration - - Weight 137.8 kg (303 lb 12.8 oz) 2020 10:01 AM NET DEVELOPMENT MANAGER Height 185.4 cm (6' 1 ) 06/19/2020 10:0 1 AM NET DEVELOPMENT MANAGER Body Mass Index 40.08 06/19/2020 10:01 AM NET DEVELOPMENT MANAGER documented in this encounter Medications at Time [...] Date/Time Associated Diagnosis Comments SCAN - LABS 06/21/2020 12:00 AM NET DEVELOPMENT MANAGER documented in this encounter Results * SCAN - LABS (06/21/2020 12:00 AM NET DEVELOPMENT MANAGER) Narrative 06/21/2020 12:00 AM NET DEVELOPMENT MANAGER Ordered by an unspecified provider. us Historical Provider Final Res ult documented in this encounter Visit Diagnoses Not on filedocumented in this encounter Care Teams Cpht Relationship Specialty Start Date End Date Osbaldo Hong MD [address] [place] [id number] PCP - General 01/13/19 documented as of this encounter
--- OUTSIDE RECORDS SUMMARY | 2024-05-26 02:46 | XMS_ITS | Encounter Summary ---
Author Organization [facility] Healthcare Address [address] [place] [address] Care Team Providers Care Bleach Boiler Puller Name Role Phone Osbaldo Hong MD Primary Care Provider +1- [phone] Encounter Details Date Type Department Care Team (Late st Contact Info) Description 04/14/2019 5:14 PM FINANCIAL UNDERWRITER - 04/14/2019 7:45 PM FINANCIAL UNDERWRITER Hospital Encounter [facility] ([place], [place] Emergency Department [address] [place] [address] Unknown, Notinfizabel Hdz, Amrit Preston, ENDOCRINOLOGY NURSE [address] [facility] [place] [address] Discharge Disposition: Discharge to home or self care Social History Tobacco Use Types Packs/Day Years Used Date Smoking Tobacco: Never Smokeless Tobacco: Never Alcohol Use Standard Drinks/Week Comments Yes 0 (1 standard drink = 0.6 oz pur e alcohol) Sex and Gender Information Value Date Recorded Sex Assigned at Not on file Legal Sex Male 6:55 PM FINANCIAL UNDERWRITER Gender Identity Not on file Sexual Orientation Not on file documented as of this encounter Last Filed Vital Signs Vital Sign Reading Time Taken Comments Blood Pressure 134/69 04/14/2019 5:16 PM FINANCIAL UNDERWRITER Pulse 116 04/14/2019 5:16 PM FINANCIAL UNDERWRITER Temperature 36.1 ??C (96.9 ??F) 04/14/2019 5:16 PM CS T Respiratory Rate - - Oxygen Saturation 96% 04/14/2019 5:16 PM FINANCIAL UNDERWRITER Inhaled Oxygen Concentration - - Weight 125.1 kg (275 lb 12.8 oz) 04/14/2019 5:16 PM FINANCIAL UNDERWRITER Height 185.4 cm (6' 1 ) 04/14/2019 5:16 PM FINANCIAL UNDERWRITER Body Mass Index 36.39 04/14/2019 5:16 PM FINANCIAL UNDERWRITER documented in this encounter Medications at Time [...] Procedure Name Priority Date/Time Associated Diagnosis Comments LIPASE Routine 04/14/2019 6:21 PM FINANCIAL UNDERWRITER COMPREHENSIVE METABOLIC PANEL Routine 04/14/2019 6:21 PM FINANCIAL UNDERWRITER CBC WITH AUTO DIFFERENTIAL Routine 04/14/2019 6:20 PM FINANCIAL UNDERWRITER documented in this encounter Results * Lipase (04/14/2019 6:21 PM FINANCIAL UNDERWRITER) Lipase 16 13 - 60 U/L [facility] 04/14/2019 6:21 PM FINANCIAL UNDERWRITER 04/14/2019 6:23 PM FINANCIAL UNDERWRITER Narrative Resulting Agency Comment ER us Amrit Hdz ENDOCRINOLOGY NURSE LAB BLOOD ORDERABLES Faith l Result [address] [phone] * (ABNORMAL) Comprehensive metabolic panel (04/14/2019 6:21 PM FINANCIAL UNDERWRITER) Sodium 139 135 - 145 mmol/L [facility] Potassium 3.8 3.3 - 5.1 mmol/L [facility] Chloride 103 96 - 108 mmol/L [facility] Carbon Dioxide 18(L) 22 - 32 mmol/L [facility] Anion Gap 18(H) 7 - 16 [facility] Glucose 129(H) 70 - 100 mg/dL [facility] BUN 13 8 - 25 mg/dL [facility] Creatinine 0.7 0.5 - 1.3 mg/dL [facility] Comment: NOTE: Estimated GFR (Cockroft-Gault) will NOT be calculated unless patient Height and Weight were entered. Also, Kidney Disease Stage (GFR) and Estimated GFR (Cockroft-Gault) will NOT be calculated if Creatinine result is <0.2. Kidney Disease Stage >90 mL/MIN [facility] Comment: NOTE; ??The GFR is an [...] failure or on dialysis Est GFR (Cockcroft-G) 233 ml/MIN [facility] Comment: Estimated GFR(Cockroft-Gault)is used to calculate patient medication dosage Calcium 9.9 8.6 - 10.3 mg/dL [facility] Total Protein 7.9 6.4 - 8.3 g/dL [facility] Albumin 4.9 3.5 - 5.0 g/dL [facility] Globulin 3.0 2.3 - 3.5 gm/dL [facility] Albumin/Globulin Ratio 1.6 1.1 - 1.8 [facility] Total Bilirubin 1.0 0.0 - 1.2 mg/dL [facility] AST 22 0 - 40 U/L [facility] ALT 31 0 - 41 U/L [facility] Alkaline Phosphatase 98 40 - 129 U/L [facility] 04/14/2019 6:21 PM FINANCIAL UNDERWRITER 04/14/2019 6:23 PM FINANCIAL UNDERWRITER Narrative Resulting Agency Comment ER us Amrit Hdz ENDOCRINOLOGY NURSE LAB BLOOD ORDERABLES Faith barrett Result Performing Organization Address City/State/[facility] Co de Phone Number [facility] [address] [place] [address] * (ABNORMAL) CBC with auto differential (04/14/2019 6:20 PM FINANCIAL UNDERWRITER) WBC 12.0(H) 3.8 - 9.9 X10 3/ul [facility] RBC 5.95(H) 4.30 - 5.80 x10 6/ul [facility] Hemoglobin 16.5 13.0 - 17.5 g/dL [facility] Hct 47.3 38.9 - 50.3 % [facility] MCV 79.5(L) 81.3 - 96.4 fl [facility] MCH 27.7 27.1 - 33.3 pg [facility] MCHC 34.9 32.3 - 35.7 g/dl [facility] RDW 12.3 11.1 - 14.9 % [facility] Plt Count 298 150 - 400 x10 3/ul [facility] MPV 10.7 9.1 - 12.3 fl [facility] Neut % 76.4 % [facility] AST - [facility] Immature Gran % 0.4 % [facility] Lymph % 16.6 % [facility] E AST - [facility] [place] % 5.6 % [facility] E AST - [facility] Eos % 0.7 % [facility] AUTO BASO % 0.3 % [facility] NEUTROPHIL ABS # 9.1(H) 1.7 - 6.5 x10 3/ul [facility] Immature Gran # 0.1 0.0 - 0.1 x10 3/ul [facility] Absolute Lymphs (auto) 2.0 0.8 - 3.3 x10 3/ul [facility] Absolute Monos (auto) 0.7 0.2 - 0.8 x10 3/ul [facility] Absolute Eos (auto) 0.1 0.0 - 0.5 x10 3/ul [facility] BASOPHIL ABS # 0.0 0.0 - 0.1 x10 3/ul [facility] Nucleat RBC Rel Count 0.0 #/100WBC [facility] NRBC abs 0.00 0.00 - 0.01 x10 3/ul [facility] Absolute Neutrophils 9,100(H) 200 - 8,000 /ul [facility] 04/14/2019 6:20 PM FINANCIAL UNDERWRITER 04/14/2019 6:23 PM FINANCIAL UNDERWRITER Narrative Resulting Agency Comment ER us Amrit Hdz ENDOCRINOLOGY NURSE LAB BLOOD ORDERABLES Faith l Result [address] [phone] documented in this encounter Visit Diagnoses Not on filedocumented in this encounter Care Teams Bleach Boiler Puller Relationship Specialty Start Date End Date Osbaldo Hong MD [address] [place] [address] PCP - General 01/13/19 documented as of this encounter
--- OUTSIDE RECORDS SUMMARY | 2024-05-26 02:46 | XMS_ITS | Encounter Summary ---
Author Organization [facility] Healthcare Address [address] [place] [address] Care Team Providers Care Fish Packer Name Role Phone Osbaldo Hong MD Primary Care Provider [phone]- [phone] Reason for Visit * Reason Comments Withdrawal Encounter Details Date Type Department Care Team (Late st Contact Info) Description 10/15/2023 6:54 AM CDT - 10/15/2023 9:50 AM CDT Emergency [facility] Emergency Department [address] [place] [address] Kiko Merchant MD [address] [place] [address] [place] [id number] Cannabis hyperemesis syndrome concurrent with and due to cannabis abuse (CMS/HCC) (HCC) (Primary Dx); Nausea and vomiting, unspecified vomiting type Discharge Disposition: Discharge to home or self care Social History Tobacco Use Types Packs/Day Years Used Date Smoking Tobacco: Never Smokeless Tobacco: Never Alcohol Use Standard Drinks/Week Comments Yes 0 (1 standard drink = 0.6 oz pur e alcohol) Personal Safety Answer Date Recorded Have you ever been in or are you currently in a harmful physical or emotional relationship or is someone making you feel afraid or unsafe? 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 Gender Identity Not on file Sexual Orientation Not on file documented as of this encounter Last Filed Vital Signs Vital Sign Reading Time Taken Comments Blood Pressure 131/78 10/15/2023 9:45 AM CDT Pulse 71 10/15/2023 9:45 AM CDT Temperature 36.5 ??C (97.7 ??F) 10/15/2023 6:47 AM CD T Respiratory Rate 16 10/15/2023 9:45 AM CDT Oxygen Saturation 99% 10/15/2023 9:45 AM CDT Inhaled Oxygen Concentration - - Weight 136.6 kg (301 lb 2.4 oz) 10/15/2023 6:47 AM CDT Height 185.4 cm (6' 1 ) 10/15/2023 6:47 AM CDT Body Mass Index 39.73 10/15/2023 6:47 AM CDT documented in this encounter Discharge Instructions * Discharge Instructions* Kiko Merchant MD - 10/15/2023 9:41 AM CDT Please follow up with your primary care physician, as soon as possible and try your best to make anappointment in no less than 7 days. Please take your medications, as prescribed. Please drink plenty of water or and electrolyte solution. Please return to the emergency department for worsening of your symptoms or any new problems which may arise. It is mandatory that you must follow-up, as recommended. You have received emergency care only at your visit today. This is not a substitute for ongoing care, further evaluation and treatment and therefore follow-up as directed is not optional but mandatory. You MUST follow up for further evaluation of all incidental abnormal radiographic and laboratory findings. Have your physician obtain records from this visit and address all the incidental abnormal findings. This may include final results of lab testing, cultures and final x-ray reports, which may not have been available during the time of the visit. Return immediately for any new symptoms, worsening of symptoms, or persistent symptoms. We are open17/12 and will take care of you. * Attachments The following attachments cannot be sent through Care Everywhere. * Cannabis Use Disorder (AfterCare(R) Instructions(ER/ED)) (Chinese) * Acute Nausea and Vomiting (AfterCare(R) Instructions(ER/ED)) (Chinese) documented in this encounter Medications at Time of Discharge amitriptyline (ELAVIL) 10 mg tablet 08/26/2018 11/14/19 24 azithromycin (Zithromax Z-Lazaro) 250 mg tablet Take 1 tablet (250 mg total) by mouth daily Take first 2 tablets together, then 1 every day until finished. 6 tablet 06/25/2021 11/14/19 24 benzonatate (TESSALON) 100 mg capsuleIndications: Cough Take 1 capsule (100 mg total) by mouth every 8 (eight) hours 21 capsule 06/25/2021 11/14/19 24 chlordiazePOXIDE-cl idinium (LIBRAX) 5-2.5 mg per capsule 08/28/2018 11/14/19 24 famotidine (PEPCID) 20 mg tablet Take 1 tablet (20 mg total) by mouth nightly as needed for indigestion or heartburn 0 07/23/2018 11/17/19 24 omeprazole (PriLOSEC) 20 mg capsule Take 20 mg by mouth 2 (two) times a day 0 06/02/2018 11/14/19 24 ondansetron ODT (ZOFRAN-ODT) 4 mg disintegrating tablet Take 1 tablet (4 mg total) by mouth every 8 (eight) hours as needed for nausea or vomiting 20 tablet 10/15/2023 11/17/19 24 prochlorperazine (COMPAZINE) 5 mg tablet TAKE 1 PILL BY MOUTH EVERY 6 HOURS X 1 MONTH (30D) NEEDED 0 07/30/2018 11/14/19 24 documented as of this encounter Ordered Prescriptions Prescription Sig Dispense Quantity Refills Last Filled Start Date End Date ondansetron ODT (ZOFRAN-ODT) 4 mg disintegrating tablet Take 1 tablet (4 mg total) by mouth every 8 (eight) hours as needed for nausea or vomiting 20 tablet 10/15/2023 4 documented in this encounter Discharge Disposition Disposition Code Departure Means Destination Comment s Discharge to home or self care documented in this encounter Progress Notes * Mary Pagan MSW - 10/15/2023 8:15 AM CDT SW Visit: LIBRARY ACQUISITIONS TECHNICIAN met with patient at bedside to follow up regarding substance use and to provide resources. WhenLSW walked into patient's room, patient closed eyes and was not talkative with SW. LIBRARY ACQUISITIONS TECHNICIAN asked patient about substances he used, and patient states I don't even know'. Patient states that he has been to rehab a few times, the last time being about 3 years ago in [place]. Patient states he was sober for 8 months before relapsing. LIBRARY ACQUISITIONS TECHNICIAN voiced understanding and encouraged patient to seek additionalhelp. LIBRARY ACQUISITIONS TECHNICIAN offered to have the peer recovery specialists from [facility] call over and do a phone assessment with patient to provide resources and support. Patient declined. LIBRARY ACQUISITIONS TECHNICIAN offered to give patient some r esources and patient was agreeable. Resources printed and left with patient at bedside. No further concerns or questions at this time. HU Sofia 8:18 AM 10/15/2023 documented in this encounter ED Notes * Kiko Merchant MD - 10/15/2023 8:03 AM CDT Chief Complaint Patient presents with Withdrawal HPI Aj Lunsford is a pleasant 23 y.o. male with past medical history of cannabis hyperemesis who presents today with nausea, vomiting, abdominal pain. He has episodes of cyclic vomiting in setting of marijuana use. He denies cp, sob, paresthesias, IV drug use. No past medical history on file. No past surgical history on file. No family history on file. Social History Tobacco Use Smoking status: Never Smokeless tobacco: Never Substance and Sexual Activity Drug use: Yes Types: Marijuana Sexual activity: Not on file Alcohol Use: Not At Risk (01/04/2020) [facility] Frequency of Alcohol Consumption: Never Average Number of Drinks: Not on file Frequency of Binge Drinking: Not on file No current facility-administered medications for this encounter. Current Outpatient Medications: amitriptyline (ELAVIL) 10 mg tablet azithromycin (Zithromax Z-Lazaro) 250 mg tablet benzonatate (TESSALON) 100 mg capsule chlordiazePOXIDE-clidinium (LIBRAX) 5-2.5 mg per capsule famotidine (PEPCID) 20 mg tablet omeprazole (PriLOSEC) 20 mg capsule ondansetron ODT (ZOFRAN-ODT) 4 mg disintegrating tablet prochlorperazine (COMPAZINE) 5 mg tablet Review of Systems Review of Systems All systems reviewed and are neg or non contributory for this patients presentation today other than as stated in the HPI . Physical Exam ED Triage Vitals [10/15/23 0647] Temp Pulse Resp BP SpO2 36.5 ??C (97.7 ??F) 80 20 (!) 171/130 100 % Temp src Heart Rate Source Patient Position BP Location FiO2 (%) Oral -- -- -- -- Height Height Method Weight Weight Method 1.854 m (6' 1 ) Stated (!) 136.6 kg (301 lb 2.4 oz) Standing scale Physical Exam Vitals and nursing note reviewed. Constitutional: General: He is not in acute distress. Appearance: Normal appearance. He is well-developed. He is not ill-appearing or toxic-appearing. HENT: Head: Normocephalic and atraumatic. Eyes: Extraocular Movements: Extraocular movements intact. Conjunctiva/sclera: Conjunctivae normal. Cardiovascular: Rate and Rhythm: Normal rate and regular rhythm. Heart sounds: Normal heart sounds. Pulmonary: Effort: Pulmonary effort is normal. No respiratory distress. Breath sounds: No decreased breath sounds, wheezing or rales. Abdominal: General: There is no distension. Palpations: Abdomen is soft. Tenderness: There is no abdominal tenderness. There is no right CVA tenderness, left CVA tendernessor guarding. Musculoskeletal: General: Normal range of motion. Cervical back: Normal range of motion. Right lower leg: No edema. Left lower leg: No edema. Skin: General: Skin is warm. Capillary Refill: Capillary refill takes less than 2 seconds. Neurological: General: No focal deficit present. Mental Status: He is alert and oriented to person, place, and time. Mental status is at baseline. Psychiatric: Behavior: Behavior normal. Procedures MDM Labs Reviewed CBC WITH AUTO DIFFERENTIAL - Abnormal Result Value WBC 8.8 Hgb 14.9 Hct 42.9 Plt 234 MPV 10.7 RBC 5.32 MCV 80.6 (*) MCH 28.0 MCHC 34.7 RDW CV 12.7 RDW SD 36.3 NRBC abs 0.00 COMPREHENSIVE METABOLIC PANEL - Abnormal Sodium 140 Potassium, pl 3.9 Chloride 103 CO2 23 Anion gap 14 BUN 14 Creatinine 0.70 (*) Glucose 124 Calcium 9.3 Bilirubin, total 1.2 Protein, pl 6.8 Albumin 4.2 Alk phos 81 ALT 31 AST 26 ETHANOL Ethanol <10 SALICYLATE LEVEL Salicylate <1.0 ACETAMINOPHEN LEVEL Acetaminophen <5 LIPASE Lipase 12 DIFFERENTIAL AUTO Neutrophil abs 4.6 Imm gran abs 0.0 Lymphocyte abs 2.9 Monocyte abs 0.8 Eosinophil abs 0.3 Basophil abs 0.0 Neutrophil pct 53.0 Imm gran pct 0.3 Lymphocyte pct 33.4 Monocyte pct 9.1 Eosinophil pct 3.7 Basophil pct 0.5 EGFR eGFR >90 No orders to display BP 139/80 Pulse 98 Temp 36.5 ??C (97.7 ??F) (Oral) Resp 22 Ht 185.4 cm (6' 1 ) Wt (!) 136.6 kg (301 lb 2.4 oz) SpO2 98% BMI 39.73 kg/m?? [facility] Medical records reviewed. Vitals on arrival show no acute process. ED Course as of 10/15/23941 Time: 10/14 814 Comment: CBC, CMP show no acute process. Etoh, salicylate, tylenol normal. By: Kiko Merchant MD Time: 10/14 938 Comment: Pt given 1L IV fluids, toradol, zofran, IM haldol and ativan. ECG shows no acute process. His abd exam is benign. I discussed with him at length the need to stop smoking marijuana. RN calledpt's mother who states I'm done with him - I've tried everything to help him stop smoking weed buthe won't . Patient understands the need to stop using cannabis. He will be discharged with plan to f/u with pcp. skip pit worker also visited the patient and gave him resources. Vitals stable at time of discharge. By: Kiko Merchant MD Clinical Impression: Cannabis hyperemesis syndrome concurrent with and due to cannabis abuse (CMS/HCC) (HCC) Nausea and vomiting, unspecified vomiting type Kiko Merchant MD 10/15/23 0942 * Marty Guzmán, RN - 10/15/2023 6:43 AM CDT I came and sat in the parking lot here yesterday thinking about coming in but I just thought I could make it. PT states took little blue pills yesterday, they were supposed to be Percocet. Pt states around 0300 this AM began having nausea and cold-sweats. documented in this encounter Miscellaneous Notes * ED Procedure Note - Kiko Merchant MD - 10/15/2023 8:13 AM CDT Associated Order(s): ECG 12 lead Procedure ECG 12 lead Date/Time: 10/15/2023 8:13 AM Performed by: Kiko Merchant MD Authorized by: Kiko Merchant MD Rate: ECG rate: 75 ECG rate assessment: normal Rhythm: Rhythm: sinus rhythm and sinus arrhythmia Ectopy: Ectopy: none QRS: QRS axis: Normal QRS intervals: Normal Conduction: Conduction: normal ST segments: ST segments: Normal T waves: T waves: normal Interpretation: Interpretation: normal Kiko Merchant MD 10/15/23 0813 documented in this encounter Plan of Treatment Not on file documented as of this encounter Procedures Procedure Name Priority Date/Time Associated Diagnosis Comments ECG 12-LEAD Routine 10/15/2023 7:14 AM CDT EGFR STAT 10/15/2023 7:11 AM CDT DIFFERENTIAL AUTO STAT 10/15/2023 7:1 1 AM CDT CBC WITH AUTO DIFFERENTIAL STAT 10/15/2023 7:11 AM CDT LIPASE STAT 10/15/2023 7:11 AM CDT ETHANOL STAT 10/15/2023 7:11 AM CDT ACETAMINOPHEN LEVEL STAT 10/15/2023 7 :11 AM CDT SALICYLATE LEVEL STAT 10/15/2023 7:11 AM CDT COMPREHENSIVE METABOLIC PANEL STAT 10/15/2023 7:11 AM CDT documented in this encounter Results * ECG 12 lead (10/15/2023 7:14 AM CDT) Pathologist [facility] Ventricular Rate EKG/Min 75 BPM [facility] Atrial Rate 75 BPM [facility] W[place]-Interval (MSEC) 142 ms [facility] QRS-Interval (MSEC) 110 ms [facility] QT-Interval (MSEC) 408 ms [facility] QTc 455 ms [facility] P [place] 45 degrees [facility] R [place] 59 degrees [facility] T [place] 31 degrees [facility] Diagnosis Normal sinus rhythm with sinus arrhythmia Normal ECG No previous ECGs available Confirmed by JOSSY BROWN M.D. ([id number]) on 10/16/2023 7:23:07 PM [facility] 10/15/2023 7:14 AM CDT 10/16/2023 7:23 PM CDT us Kiko Merchant MD ECG ORDERABLES Final Res ult [facility] * eGFR (10/15/2023 7:11 AM CDT) eGFR >90 >=60 mL/min/1. 73 m2 [...] was last reviewed 2021. Testing performed by: [address] [address] Blood 10/15/2023 7:11 AM CDT 10/15/2023 7:14 AM CDT us Kiko Merchant MD LAB BLOOD ORDERABLES Faith barrett Result MIRTHA [address] [facility] Department [place] [address] * Differential, auto (10/15/2023 7:11 AM CDT) Neutrophil abs 4.6 1.5 - 6.5 K/cumm Comment:Testing performed by : [address] [address] Imm gran abs 0.0 0.0 - 0.1 K/cumm MIRTHA LUTHER Comment:Testing performed by : [address] [address] Lymphocyte abs 2.9 0.8 - 3.3 K/cumm MIRTHA Comment:Testing performed by : [address] [address] Monocyte abs 0.8 0.2 - 0.8 K/cumm MIRTHA Comment:Testing performed by : [address] [address] Eosinophil abs 0.3 0.0 - 0.5 K/cumm MIRTHA Comment:Testing performed by : [address] [address] Basophil abs 0.0 0.0 - 0.1 K/cumm [facility] Comment:Testing performed by : [address] [address] Neutrophil pct 53.0 % [facility] Comment: Interpretive Data Percent cell count reference ranges are not reported, since discordance with absolute values may lead to misinterpretation of CBC data. Current Interpretive Data was last revised on 2017. Testing performed by: [address] [address] Imm gran pct 0.3 % [facility] Comment: Interpretive Data Percent cell count reference ranges are not reported, since discordance with absolute values may lead to misinterpretation of CBC data. Current Interpretive Data was last revised on 2017. Testing performed by: [address] [address] Lymphocyte pct 33.4 % [facility] Comment: Interpretive Data Percent cell count reference ranges are not reported, since discordance with absolute values may lead to misinterpretation of CBC data. Current Interpretive Data was last revised on 2017. Testing performed by: [address] [address] Monocyte pct 9.1 % [facility] Comment: Interpretive Data Percent cell count reference ranges are not reported, since discordance with absolute values may lead to misinterpretation of CBC data. Current Interpretive Data was last revised on 2017. Testing performed by: [address] [address] Eosinophil pct 3.7 % [facility] Comment: Interpretive Data Percent cell count reference ranges are not reported, since discordance with absolute values may lead to misinterpretation of CBC data. Current Interpretive Data was last revised on 2017. Testing performed by: [address] [address] Basophil pct 0.5 % [facility] Comment: Interpretive Data Percent cell count reference ranges are not reported, since discordance with absolute values may lead to misinterpretation of CBC data. Current Interpretive Data was last revised on 2017. Testing performed by: [address] [address] Blood 10/15/2023 7:11 AM CDT 10/15/2023 7:14 AM CDT Kiko Merchant MD LAB BLOOD ORDERABLES Faith l Result Performing Organization Address [facility] Co de Phone Number [address] [place] [address] * Lipase (10/15/2023 7:11 AM CDT) Pathologist [facility] Lipase 12 10 - 99 Units/L Comment:Testing performed by : [address] [address] Blood 10/15/2023 7:11 AM CDT 10/15/2023 7:14 AM CDT Kiko Merchant MD LAB BLOOD ORDERABLES Faith l Result Performing Organization Address [facility] Co de Phone Number [address] [address] * Acetaminophen level (10/15/2023 7:11 AM CDT) Pathologist [facility] Acetaminophen <5 <=5 mcg/mL Comment: Interpretive Data Significant hepatic injury may occur and treatment with n-acetyl cysteine is generally recommended if the acetaminophen level exceeds: 150 mcg/mL at 4 hours after ingestion ??75 mcg/mL at 8 hours after ingestion ??38 mcg/mL at 12 hours after ingestion ??19 mcg/mL at 16 hours after ingestion Consult toxicology or poison control ([phone]) for unknown ingestion time. Current interpretive data was last revised 2023. Testing performed by: [address] [address] Blood 10/15/2023 7:11 AM CDT 10/15/2023 7:14 AM CDT Kiko Merchant MD LAB BLOOD ORDERABLES Faith l Result [address] [address] * Salicylate level (10/15/2023 7:11 AM CDT) Salicylate <1.0 <=1.0 mg/dL Comment: Interpretive Data Toxic: 30 mg/dL or greater. Current interpretive data was last revised 2023. Testing performed by: [address] [address] Blood 10/15/2023 7:11 AM CDT 10/15/2023 7:14 AM CDT Kiko Merchant MD LAB BLOOD ORDERABLES Faith l Result Performing Organization Address [facility] de Phone Number [address] [address] * Ethanol (10/15/2023 7:11 AM CDT) Ethanol <10 <=10 mg/dL Comment: Interpretive Data Legal limit of intoxication > or = 80 mg/dL Levels > or = 400 mg/dL are potentially TOXIC. Current interpretive data was last revised on 2018. Testing performed by: [address] [address] Blood 10/15/2023 7:11 AM CDT 10/15/2023 7:14 AM CDT Result [facility] Kiko Merchant MD LAB BLOOD ORDERABLES Faith l Result Performing Organization Address City/[facility]/ZIP Co de Phone Number [address] [place] [address] * (ABNORMAL) Comprehensive metabolic panel (10/15/2023 7:11 AM CDT) Sodium 140 135 - 145 mmol/L Comment:Testing performed by : [address] [address] Potassium, pl 3.9 3.3 - 4.9 mmol/L [facility] Comment:Testing performed by : [address] [address] Chloride 103 97 - 110 mmol/L [facility] Comment:Testing performed by : [address] [address] CO2 23 22 - 32 mmol/L [facility] Comment:Testing performed by : [address] [address] Anion gap 14 2 - 15 mmol/L [facility] Comment:Testing performed by : [address] [address] BUN 14 6 - 25 mg/dL [facility] Comment:Testing performed by : [address] [address] Creatinine 0.70(L) 0.80 - 1.30 mg/dL [facility] Comment:Testing performed by : [address] [address] Glucose 124 70 - 199 mg/dL [facility] Comment: Interpretive Data Fasting glucose >/= 126 [...] Current interpretive data was last revised 2022. Testing performed by: [address] [address] Calcium 9.3 8.5 - 10.3 mg/dL [facility] Comment:Testing performed by : [address] [address] Bilirubin, total 1.2 0.1 - 1.2 mg/dL MIRTHA Comment:Testing performed by : [address] [address] Protein, pl 6.8 6.5 - 8.5 g/dL MIRTHA Comment:Testing performed by : [address] [address] Albumin 4.2 3.5 - 5.0 g/dL MIRTHA Comment:Testing performed by : [address] [address] Alk phos 81 40 - 130 Units/L MIRTHA Comment:Testing performed by : [address] [address] ALT 31 7 - 55 Units/L MIRTHA Comment:Testing performed by : [address] [address] AST 26 10 - 50 Units/L MIRTHA Comment:Testing performed by : [address] [address] Blood 10/15/2023 7:11 AM CDT 10/15/2023 7:14 AM CDT us Kiko Merchant MD LAB BLOOD ORDERABLES Faith l Result [facility] [address] [facility] Department of Laboratories [place], [place] [id number] * (ABNORMAL) CBC with auto differential (10/15/2023 7:11 AM CDT) [facility] WBC 8.8 3.8 - 9.9 K/cumm Comment:Testing performed by : [address] [address] Hgb 14.9 13.0 - 17.5 g/dL MIRTHA LUTHER Comment:Testing performed by : [address] [address] Hct 42.9 38.9 - 50.3 % MIRTHA Comment:Testing performed by : [address] [address] Plt 234 150 - 400 K/cumm MIRTHA LUTHER Comment:Testing performed by : [address] [address] MPV 10.7 9.1 - 12.3 fL MIRTHA LUTHER Comment:Testing performed by : [address] [address] RBC 5.32 4.30 - 5.80 M/cumm MIRTHA LUTHER Comment:Testing performed by : [address] [address] MCV 80.6(L) 81.3 - 96.4 fL MIRTHA Comment:Testing performed by : [address] [address] MCH 28.0 27.1 - 33.3 pg MIRTHA LUTHER Comment:Testing performed by : [address] [address] MCHC 34.7 32.3 - 35.7 g/dL MIRTHA Comment:Testing performed by : [address] [address] RDW CV 12.7 11.1 - 14.9 % MIRTHA Comment:Testing performed by : [address] [address] RDW SD 36.3 35.7 - 48.1 fL MIRTHA Comment:Testing performed by : [address] [address] NRBC abs 0.00 0.00 - 0.01 K/cumm MIRTHA Comment:Testing performed by : [address] [address] Blood 10/15/2023 7:11 AM CDT 10/15/2023 7:14 AM CDT us Kiko Merchant MD LAB BLOOD ORDERABLES Faith barrett Result MIRTHA LUTHER [address] [facility] Department of Laboratories [place], [place] [id number] documented in this encounter Visit Diagnoses Diagnosis Cannabis hyperemesis syndrome concurrent with and due to cannabis abuse (CMS/HCC) (HCC)- Primary Nausea and vomiting, unspecified vomiting type documented in this encounter Administered Medications Inactive Administered Medications - up to 3 most recent administrations Medication Order MAR Action Action Date Dose Rate Site haloperidol (HALDOL) injection 5 mg 5 mg, intramuscular, Once, On Sat10/15/23 at 0701, For 1 dose, If administered IV push, administer over 5 min for adults Given 10/15/2023 7:19 AM CDT 5 mg Right Deltoid ketorolac (TORADOL) 30 mg/mL injection 15 mg 15 mg, intravenous, Once, On Sat10/15/23 at 0813, For 1 dose, For Adult IV push, administer over 15 seconds Given 10/15/2023 8:15 AM CDT 15 mg LORazepam (ATIVAN) injection 1 mg 1 mg, intravenous, Once, On Sat10/15/23 at 0701, For 1 dose, For IV administration, draw up ordered admin dose/volume, then dilute with equal volume of 0.9% sodium chloride and administer total volume to patient. Do not exceed a rate of 2 mg/minute. Given 10/15/2023 7:16 AM CDT 1 mg ondansetron (ZOFRAN) injection 4 mg 4 mg, intravenous, Administer over 2 Minutes, Once, On Sat10/15/23 at 0813, For 1 dose Given 10/15/2023 8:14 AM CDT 4 mg sodium chloride 0.9% bolus 1,000 mL 1,000 mL, intravenous, at 1,000 mL/hr, Administer over 1 Hours, Once, On Sat10/15/23 at 0701, For 1 dose New Bag 10/15/2023 7:15 AM CDT 1,000 mL 1000 mL/hr documented in this encounter Active and Recently Administered Medications Times are shown in CDT. Scheduled Medication Order 10/13/2023 10/14/2023 10/15/2023 haloperidol (HALDOL) injection 5 mg (COMPLETED) 5 mg, intramuscular, Once, On Sat10/15/23 at 0701, For 1 dose, If administered IV push, administer over 5 min for adults 0719 (Given - Provid er: Maranda Weir RN) ketorolac (TORADOL) 30 mg/mL injection 15 mg (COMPLETED) 15 mg, intravenous, Once, On Sat10/15/23 at 0813, For 1 dose, For Adult IV push, administer over 15 seconds 0815 (Given - Provid er: Maranda Weir RN) LORazepam (ATIVAN) injection 1 mg (COMPLETED) 1 mg, intravenous, Once, On Sat10/15/23 at 0701, For 1 dose, For IV administration, draw up ordered admin dose/volume, then dilute with equal volume of 0.9% sodium chloride and administer total volume to patient. Do not exceed a rate of 2 mg/minute. 0716 (Given - Provid er: Maranda Weir RN) ondansetron (ZOFRAN) injection 4 mg (COMPLETED) 4 mg, intravenous, Administer over 2 Minutes, Once, On Sat10/15/23 at 0813, For 1 dose 0814 (Given - Provid er: Maranda Weir RN) sodium chloride 0.9% bolus 1,000 mL (COMPLETED) 1,000 mL, intravenous, at 1,000 mL/hr, Administer over 1 Hours, Once, On Sat10/15/23 at 0701, For 1 dose 0715 (New Bag - Prov ider: Maranda Weir RN)0820 (Stopped - Provider: Maranda Weir RN) documented in this encounter Care Teams Fish Packer Relationship Specialty Start Date End Date Osbaldo Hong MD [address] [place] [id number] PCP - General 01/13/19 documented as of this encounter
--- OUTSIDE RECORDS SUMMARY | 2024-05-26 02:46 | XMS_ITS | Encounter Summary ---
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 - 06/30/2023 11:15 AM [facility] Emergency Department [address] [place] [address] Discharge Disposition: Left without being seen Social History Tobacco Use Types Packs/Day Years Used Date Smoking Tobacco: Never Smokeless Tobacco: Never Alcohol Use Standard Drinks/Week Comments Yes 0 (1 standard drink = 0.6 oz pur e alcohol) Personal Safety Answer Date Recorded Getting School Help Needed Not on file 06/30 Sex and Gender Information Value Date Recorded Sex Assigned at Not on file 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 Called several times for triage without answer. Kacie Child RN 06/30/23 1208 ING ELEMENT BUILDER documented in this encounter Plan of Treatment Not on file documented as of this encounter Visit Diagnoses Not on filedocumented in this encounter Care Teams Ambulatory Nurse Relationship Specialty Start Date End Date Osbaldo Hong MD [address] [place] [address] PCP - General 01/13/19 documented as of this encounter
--- OUTSIDE RECORDS SUMMARY | 2024-05-26 02:46 | XMS_ITS | Encounter Summary ---
Author Organization [facility] Healthcare Address [address] [place] [address] Care Team Providers Care Utility Technician Name Role Phone Osbaldo Hong MD Primary Care Provider +1- [phone] Encounter Details Date Type Department Care Team (Late st Contact Info) Description 05/18/2024 1:38 PM NIGHT WAREHOUSE MANAGER - 05/18/2024 2:27 PM [facility] Emergency [facility] Emergency Department [address] [place] [address] Discharge Disposition: Left without being seen Social History Tobacco Use Types Packs/Day Years Used Date Smoking Tobacco: Never Smokeless Tobacco: Never Alcohol Use Standard Drinks/Week Comments Not Currently 0 (1 standard drink = 0.6 oz pur e alcohol) [facility] Utilities Answer Date Recorded In the past 12 months has [employer] electric, gas, oil, or water company threatened [...] often do you attend chur ch or orthodoxy services? Never 11/15/2023 Do you belong to any clubs o r organizations such as zoroastrianism groups, unions, fraternal or athletic groups, or [...] any time in the past 12 m [facility], were you homeless or living in a jail (including now)? No 11/15/2023 Personal Safety Answer Date Recorded Have you ever been in or are you currently in a harmful physical or emotional relationship or is someone making you feel afraid or unsafe? 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 Gender Identity Not on file Sexual Orientation Not on file documented as of this encounter Medications at Time of Discharge ondansetron ODT (ZOFRAN-ODT) 4 mg disintegrating tablet Take 1 tablet (4 mg total) by mouth every 8 (eight) hours as needed for nausea or vomiting 30 tablet 11/17/2023 pregabalin (LYRICA) 100 mg capsule Take 1 capsule (100 mg total) by mouth 2 (two) times a day sucralfate (CARAFATE) 1 gram tabletIndications:Ga stric Ulcer Take 1 tablet (1 g total) by mouth 4 (four) times a day as needed (ulcers) documented as of this encounter Discharge Disposition Disposition Code Departure Means Destination Left without being seen documented in this encounter Plan of Treatment Not on file documented as of this encounter Visit Diagnoses Not on filedocumented in this encounter Care Teams Utility Technician Relationship Specialty Start Date End Date Osbaldo Hong MD [address] [place] [address] PCP - General 01/13/19 documented as of this encounter
--- OUTSIDE RECORDS SUMMARY | 2024-05-26 02:47 | XMS_ITS | Encounter Summary ---
Author Organization [facility] Healthcare Address [address] [place] [address] Care Team Providers Care Printed Circuit Boards Router Name Role Phone Osbaldo Hong MD Primary Care Provider +1- [phone] Encounter Details Date Type Department Care Team (Late st Contact Info) Description 01/06/2019 1:44 PM CDT - 01/06/2019 7:25 PM CDT Hospital Encounter [address] [phone] Unknown, NotinfAmado Loving MD [address] [place] [id number] Discharge Disposition: Discharge to home or self care Social History Tobacco Use Types Packs/Day Years Used Date Smoking Tobacco: Never Smokeless Tobacco: Never Alcohol Use Standard Drinks/Week Comments Yes 0 (1 standard drink = 0.6 oz pur e alcohol) Sex and Gender Information Value Date Recorded Sex Assigned at Not on file 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 Gender Identity Not on file Sexual Orientation Not on file documented as of this encounter Last Filed Vital Signs Vital Sign Reading Time Taken Comments Blood Pressure 128/63 01/06/2019 1:56 PM CDT Pulse 101 01/06/2019 1:56 PM CDT Temperature 36.8 ??C (98.2 ??F) 01/06/2019 1:56 PM CD T Respiratory Rate - - Oxygen Saturation 99% 01/06/2019 1:56 PM CDT Inhaled Oxygen Concentration - - Weight 122.5 kg (270 lb) 01/06/2019 1:56 PM CDT Height 185.4 cm (6' 1 ) 01/06/2019 1:56 PM CDT Body Mass Index 35.62 01/06/2019 1:56 PM CDT documented in this encounter Medications [...] Procedure Name Priority Date/Time Associated Diagnosis Comments URINALYSIS, COMPLETE Routine 01/06/2019 3:41 PM CDT URINALYSIS AND REFLEX TO MICROSCOPIC Routine 01/06/2019 3:41 PM CDT LIPASE Routine 01/06/2019 3:17 PM CDT COMPREHENSIVE METABOLIC PANEL Routine 01/06/2019 3:17 PM CDT CBC WITH AUTO DIFFERENTIAL Routine 01/06/2019 2:08 PM CDT LIPASE Routine 01/06/2019 2:08 PM CDT COMPREHENSIVE METABOLIC PANEL Routine 01/06/2019 2:08 PM CDT documented in this encounter Results * Urinalysis, Complete (01/06/2019 3:41 PM CDT) Ur Collection Type CLEAN CATCH [facility] Urine Color YELLOW YELLOW [facility] Urine Clarity [facility] Urine Glucose (UA) NORMAL NORMAL mg/dL [facility] Urine Bilirubin NEGATIVE NEGATIVE mg/dl [facility] Urine Ketones NEGATIVE NEGATIVE mg/dL [facility] Ur Specific [place] 1.025 1.005 - 1.025 [facility] Urine Blood NEGATIVE NEGATIVE mg/dl [facility] Urine pH 6.0 5.0 - 8.0 [facility] Urine Protein NEGATIVE NEGATIVE mg/dL [facility] Urine Urobilinogen NORMAL NORMAL mg/dL [facility] Urine Nitrite NEGATIVE NEGATIVE [facility] Ur Leukocyte Esterase NEGATIVE NEGATIVE Luis/ul [facility] Ur Microscopic Review Indicated or Ordered [facility] Urine RBC 2 0 - 2 /HPF [facility] Urine WBC 2 0 - 2 /HPF [facility] Urine Mucus Mod /LPF [facility] 01/06/2019 3:41 PM CDT 01/06/2019 3:51 PM CDT Narrative [facility] - 01/06/2019 4:11 PM CDT am Clean catch Resulting Agency Comment ER us Floresita Ortega GREENKEEPER LAB URINE ORDERABLES Faith l Result [facility] [address] [place] [address], [facility] [phone] * Urinalysis reflex to microscopic (01/06/2019 3:41 PM CDT) Ur Collection Type CLEAN CATCH [facility] Urine Color YELLOW YELLOW [facility] Urine Clarity [facility] Urine Glucose (UA) NORMAL NORMAL mg/dL [facility] Urine Bilirubin NEGATIVE NEGATIVE mg/dl [facility] Urine Ketones NEGATIVE NEGATIVE mg/dL [facility] Ur Specific [place] 1.025 1.005 - 1.025 [facility] Urine Blood NEGATIVE NEGATIVE mg/dl [facility] Urine pH 6.0 5.0 - 8.0 [facility] Urine Protein NEGATIVE NEGATIVE mg/dL [facility] Urine Urobilinogen NORMAL NORMAL mg/dL [facility] Urine Nitrite NEGATIVE NEGATIVE [facility] Ur Leukocyte Esterase NEGATIVE NEGATIVE Luis/ul [facility] Ur Microscopic Review Indicated or Ordered [facility] Urine RBC 2 0 - 2 /HPF [facility] Urine WBC 2 0 - 2 /HPF [facility] Urine Mucus Mod /LPF [facility] 01/06/2019 3:41 PM CDT 01/06/2019 3:51 PM CDT Narrative [facility] - 01/06/2019 4:10 PM CDT am Clean catch Resulting Agency Comment ER us Floresita Ortega GREENKEEPER LAB URINE ORDERABLES Faith l Result [address] [phone] * Lipase (01/06/2019 3:17 PM CDT) Lipase 16 13 - 60 U/L [facility] 01/06/2019 3:17 PM CDT 01/06/2019 3:23 PM CDT Narrative Resulting Agency Comment ER us Notinfile Unknown LAB BLOOD ORDERABLES Final Res ult [address] [phone] * (ABNORMAL) Comprehensive metabolic panel (01/06/2019 3:17 PM CDT) Sodium 143 135 - 145 mmol/L [facility] Potassium 4.3 3.3 - 5.1 mmol/L [facility] Chloride 106 96 - 108 mmol/L [facility] Carbon Dioxide 23 22 - 32 mmol/L [facility] Anion Gap 14 7 - 16 [facility] Glucose 125(H) 70 - 100 mg/dL [facility] BUN 11 8 - 25 mg/dL [facility] Creatinine 0.7 0.5 - 1.3 mg/dL [facility] Comment: NOTE: Estimated GFR (Cockroft-Gault) will NOT be calculated unless patient Height and Weight were entered. Also, Kidney Disease Stage (GFR) and Estimated GFR (Cockroft-Gault) will NOT be calculated if Creatinine result is <0.2. Kidney Disease Stage >90 mL/MIN [facility] Comment: NOTE; ??The GFR is an [...] failure or on dialysis Est GFR (Cockcroft-G) 231 ml/MIN [facility] Comment: Estimated GFR(Cockroft-Gault)is used to calculate patient medication dosage Calcium 10.6(H) 8.6 - 10.3 mg/dL [facility] Total Protein 7.4 6.4 - 8.3 g/dL [facility] Albumin 4.5 3.5 - 5.0 g/dL [facility] Globulin 2.9 2.3 - 3.5 gm/dL [facility] Albumin/Globulin Ratio 1.6 1.1 - 1.8 [facility] Total Bilirubin 0.7 0.0 - 1.2 mg/dL [facility] AST 21 0 - 40 U/L [facility] ALT 25 0 - 41 U/L [facility] Alkaline Phosphatase 76 40 - 129 U/L [facility] 01/06/2019 3:17 PM CDT 01/06/2019 3:23 PM CDT Narrative Resulting Agency Comment ER us Notinfile Unknown LAB BLOOD ORDERABLES Edited Re sult - Final [address] [phone] * Lipase (01/06/2019 2:08 PM CDT) Lipase TNP 13 - 60 U/L [facility] 01/06/2019 2:08 PM CDT 01/06/2019 2:31 PM CDT Narrative Resulting Agency Comment ER us Floresita Ortega GREENKEEPER LAB BLOOD ORDERABLES Edit ed Result - Final [address] [phone] * Comprehensive metabolic panel (01/06/2019 2:08 PM CDT) Sodium TNP 135 - 145 mmol/L [facility] Potassium TNP 3.3 - 5.1 mmol/L [facility] Chloride TNP 96 - 108 mmol/L [facility] Carbon Dioxide TNP 22 - 32 mmol/L [facility] Anion Gap TNP 7 - 16 [facility] Glucose TNP 70 - 100 mg/dL [facility] BUN TNP 8 - 25 mg/dL [facility] Creatinine TNP 0.5 - 1.3 mg/dL [facility] Comment: NOTE: Estimated GFR (Cockroft-Gault) will NOT be calculated unless patient Height and Weight were entered. Also, Kidney Disease Stage (GFR) and Estimated GFR (Cockroft-Gault) will NOT be calculated if Creatinine result is <0.2. Kidney Disease Stage TNP mL/MIN [facility] Comment: NOTE; ??The GFR is an [...] failure or on dialysis Est GFR (Cockcroft-G) TNP ml/MIN [facility] Comment: Estimated GFR(Cockroft-Gault)is used to calculate patient medication dosage Calcium TNP 8.6 - 10.3 mg/dL [facility] Total Protein TNP 6.4 - 8.3 g/dL [facility] Albumin TNP 3.5 - 5.0 g/dL [facility] Globulin TNP 2.3 - 3.5 gm/dL [facility] Albumin/Globulin Ratio TNP 1.1 - 1.8 [facility] Total Bilirubin TNP 0.0 - 1.2 mg/dL [facility] AST TNP 0 - 40 U/L [facility] ALT TNP 0 - 41 U/L [facility] Alkaline Phosphatase TNP 40 - 129 U/L [facility] 01/06/2019 2:08 PM CDT 01/06/2019 2:31 PM CDT Narrative Resulting Agency Comment ER Floresita Ortega NP LAB BLOOD ORDERABLES Edit ed Result - Final [facility] [address] [place], [place] [id number] [place] [address] * (ABNORMAL) CBC with auto differential (01/06/2019 2:08 PM CDT) WBC 11.9(H) 3.8 - 9.9 X10 3/ul [facility] RBC 5.94(H) 4.30 - 5.80 x10 6/ul [facility] Hemoglobin 16.8 13.0 - 17.5 g/dL [facility] Hct 48.6 38.9 - 50.3 % [facility] MCV 81.8 81.3 - 96.4 fl [facility] MCH 28.3 27.1 - 33.3 pg [facility] MCHC 34.6 32.3 - 35.7 g/dl [facility] RDW 12.9 11.1 - 14.9 % [facility] Plt Count 256 150 - 400 x10 3/ul [facility] MPV 11.4 9.1 - 12.3 fl [facility] Neut % 75.9 % [facility] Immature Gran % 0.6 % [facility] Lymph % 17.0 % [facility] Centre % 4.9 % [facility] Eos % 1.3 % [facility] AUTO BASO % 0.3 % [facility] NEUTROPHIL ABS # 9.1(H) 1.7 - 6.5 x10 3/ul [facility] Immature Gran # 0.1 0.0 - 0.1 x10 3/ul [facility] Absolute Lymphs (auto) 2.0 0.8 - 3.3 x10 3/ul [facility] Absolute Monos (auto) 0.6 0.2 - 0.8 x10 3/ul [facility] Absolute Eos (auto) 0.2 0.0 - 0.5 x10 3/ul [facility] BASOPHIL ABS # 0.0 0.0 - 0.1 x10 3/ul [facility] Nucleat RBC Rel Count 0.0 #/100WBC [facility] NRBC abs 0.00 0.00 - 0.01 x10 3/ul [facility] Absolute Neutrophils 9,100(H) 200 - 8,000 /ul [facility] 01/06/2019 2:08 PM CDT 01/06/2019 2:31 PM CDT Narrative Resulting Agency Comment ER Floresita Ortega GREENKEEPER LAB BLOOD ORDERABLES Faith l Result [facility] [address] [place] [address], [facility] [phone] documented in this encounter Visit Diagnoses Not on filedocumented in this encounter Care Teams Printed Circuit Boards Router Relationship Specialty Start Date End Date Osbaldo Hong MD [address] [place] [id number] PCP - General 01/06/19 01/12/19 documented as of this encounter
--- OUTSIDE RECORDS SUMMARY | 2024-05-26 02:47 | XMS_ITS | Encounter Summary ---
Author Organization [facility] Healthcare Address [address] [place] [address] Care Team Providers Care Switch Inspector Name Role Phone Osbaldo Hong MD Primary Care Provider +1- [phone] Encounter Details Date Type Department Care Team (Late st Contact Info) Description 10/27/2018 10:59 AM CDT - 10/27/2018 3:28 PM CDT Hospital Encounter [facility] Emergency Department [address] [place] [address] Unknown, Germán Edwards MD [facility] [place], [place] [id number] Discharge Disposition: Discharge to home or self care Social History Tobacco Use Types Packs/Day Years Used Date Smoking Tobacco: Never Smokeless Tobacco: Never Alcohol Use Standard Drinks/Week Comments Yes 0 (1 standard drink = 0.6 oz pur e alcohol) Sex and Gender Information Value Date Recorded Sex Assigned at Not on file 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 Gender Identity Not on file Sexual Orientation Not on file documented as of this encounter Last Filed Vital Signs Vital Sign Reading Time Taken Comments Blood Pressure 135/89 10/27/2018 11:13 AM CDT Pulse 86 10/27/2018 11:13 AM CDT Temperature 36.4 ??C (97.6 ??F) 10/27/2018 11:13 AM C DT Respiratory Rate - - Oxygen Saturation 100% 10/27/2018 11:13 AM CDT Inhaled Oxygen Concentration - - Weight 120.2 kg (265 lb) 10/27/2018 11:13 AM CDT Height 185.4 cm (6' 1 ) 10/27/2018 11:13 AM CDT Body Mass Index 34.96 10/27/2018 11:13 AM CDT documented in this encounter Medications [...] Diagnosis Comments CBC WITH AUTO DIFFERENTIAL Routine 10/27/2018 12:30 PM CDT LIPASE Routine 10/27/2018 12:30 PM CDT COMPREHENSIVE METABOLIC PANEL Routine 10/27/2018 12:30 PM CDT documented in this encounter Results * Lipase (10/27/2018 12:30 PM CDT) Lipase 15 13 - 60 U/L [facility] 10/27/2018 12:3 0 PM CDT 10/27/2018 12:43 PM CDT Narrative Resulting Agency Comment ER us Debora Nance CUSTODIAL ENGINEER LAB BLOOD ORDERABLES Final Re sult [address] [phone] * (ABNORMAL) Comprehensive metabolic panel (10/27/2018 12:30 PM CDT) Sodium 143 135 - 145 mmol/L [facility] Potassium 3.7 3.3 - 5.1 mmol/L [facility] Chloride 103 96 - 108 mmol/L [facility] Carbon Dioxide 24 22 - 32 mmol/L [facility] Anion Gap 16 7 - 16 [facility] Glucose 135(H) 70 - 100 mg/dL [facility] BUN 14 8 - 25 mg/dL [facility] Creatinine 0.7 0.5 - 1.3 mg/dL [facility] Comment: NOTE: Estimated GFR (Cockroft-Gault) will NOT be calculated unless patient Height and Weight were entered. Also, Kidney Disease Stage (GFR) and Estimated GFR (Cockroft-Gault) will NOT be calculated if Creatinine result is <0.2. Kidney Disease Stage >90 mL/MIN [facility] Comment: NOTE; ??The GFR is an estimated [...] failure or on dialysis Est GFR (Cockcroft-G) 229 ml/MIN [facility] Comment: Estimated GFR(Cockroft-Gault)is used to calculate patient medication dosage Calcium 10.1 8.6 - 10.3 mg/dL [facility] Total Protein 7.6 6.4 - 8.3 g/dL [facility] Albumin 4.8 3.5 - 5.0 g/dL [facility] Globulin 2.8 2.3 - 3.5 gm/dL [facility] Albumin/Globulin Ratio 1.7 1.1 - 1.8 [facility] Total Bilirubin 1.2 0.0 - 1.2 mg/dL [facility] AST 21 0 - 40 U/L [facility] ALT 27 0 - 41 U/L [facility] Alkaline Phosphatase 83 40 - 129 U/L [facility] 10/27/2018 12:3 0 PM CDT 10/27/2018 12:43 PM CDT Narrative Resulting Agency Comment ER us Debora Nance CUSTODIAL ENGINEER LAB BLOOD ORDERABLES Final Re sult [address] [phone] * (ABNORMAL) CBC with auto differential (10/27/2018 12:30 PM CDT) WBC 12.5(H) 3.8 - 9.9 X10 3/ul [facility] RBC 6.06(H) 4.30 - 5.80 x10 6/ul [facility] Hemoglobin 16.6 13.0 - 17.5 g/dL [facility] Hct 49.5 38.9 - 50.3 % [facility] MCV 81.7 81.3 - 96.4 fl [facility] MCH 27.4 27.1 - 33.3 pg [facility] MCHC 33.5 32.3 - 35.7 g/dl [facility] RDW 12.5 11.1 - 14.9 % [facility] Plt Count 233 150 - 400 x10 3/ul [facility] MPV 10.9 9.1 - 12.3 fl [facility] Neut % 82.9 % [facility] Immature Gran % 0.6 % [facility] Lymph % 11.4 % [facility] [place] % 4.6 % [facility] Eos % 0.3 % [facility] AUTO BASO % 0.2 % [facility] NEUTROPHIL ABS # 10.4(H) 1.7 - 6.5 x10 3/ul [facility] Immature Gran # 0.1 0.0 - 0.1 x10 3/ul [facility] Absolute Lymphs (auto) 1.4 0.8 - 3.3 x10 3/ul [facility] Absolute Monos (auto) 0.6 0.2 - 0.8 x10 3/ul [facility] Absolute Eos (auto) 0.0 0.0 - 0.5 x10 3/ul [facility] BASOPHIL ABS # 0.0 0.0 - 0.1 x10 3/ul [facility] Nucleat RBC Rel Count 0.0 #/100WBC [facility] NRBC abs 0.00 0.00 - 0.01 x10 3/ul [facility] Absolute Neutrophils 10,400(H) 200 - 8,000 /ul [facility] 10/27/2018 12:3 0 PM CDT 10/27/2018 12:43 PM CDT Narrative Resulting Agency Comment ER us Debora Nance CUSTODIAL ENGINEER LAB BLOOD ORDERABLES Final Re sult [facility] [address] [phone] documented in this encounter Visit Diagnoses Not on filedocumented in this encounter Care Teams Switch Inspector Relationship Specialty Start Date End Date Osbaldo Hong MD PCP - General 07/23/18 01/05/19 documented as of this encounter
--- OUTSIDE RECORDS SUMMARY | 2024-05-26 02:47 | XMS_ITS | Encounter Summary ---
Author Organization [facility] Healthcare Address [address] [place] [address] Care Team Providers Care Glost Tile Sorter Name Role Phone Osbaldo Hong MD Primary Care Provider [phone] Encounter Details Date Type Department Care Team (Late st Contact Info) Description 01/19/2019 12:47 PM CDT - 01/19/2019 5:27 PM CDT Hospital Encounter [facility] Emergency Department [address] [place] [address] [place], [place] [address] [facility] [address] [place] [address] Discharge Disposition: Discharge to home or self care Social History Tobacco Use Types Packs/Day Years Used Date Smoking Tobacco: Never Smokeless Tobacco: Never Alcohol Use Standard Drinks/Week Comments Yes 0 (1 standard drink = 0.6 oz pur e alcohol) Sex and Gender Information Value Date Recorded Sex Assigned at Not on file 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 Gender Identity Not on file Sexual Orientation Not on file documented as of this encounter Last Filed Vital Signs Vital Sign Reading Time Taken Comments Blood Pressure 156/94 01/19/2019 1:21 PM CDT Pulse 99 01/19/2019 1:21 PM CDT Temperature 36.8 ??C (98.2 ??F) 01/19/2019 1:21 PM CD T Respiratory Rate - - Oxygen Saturation 100% 01/19/2019 1:21 PM CDT Inhaled Oxygen Concentration - - Weight 124 kg (273 lb 6 oz) 01/19/2019 1:21 PM C DT Height 185.4 cm (6' 1 ) 01/19/2019 1:21 PM CDT Body Mass Index 36.07 01/19/2019 1:21 PM CDT documented in this encounter Medications [...] Diagnosis Comments CBC WITH AUTO DIFFERENTIAL Routine 01/19/2019 3:29 PM CDT LIPASE Routine 01/19/2019 3:29 PM CDT COMPREHENSIVE METABOLIC PANEL Routine 01/19/2019 3:29 PM CDT documented in this encounter Results * Lipase (01/19/2019 3:29 PM CDT) Lipase 14 13 - 60 U/L [facility] 01/19/2019 3:29 PM CDT 01/19/2019 3:37 PM CDT Narrative Resulting Agency Comment ER us Jasmyn DAVIS LAB BLOOD ORDERABLES Faith l Result [address] [phone] * (ABNORMAL) Comprehensive metabolic panel (01/19/2019 3:29 PM CDT) Sodium 141 135 - 145 mmol/L [facility] Potassium 3.8 3.3 - 5.1 mmol/L [facility] Chloride 102 96 - 108 mmol/L [facility] Carbon Dioxide 22 22 - 32 mmol/L [facility] Anion Gap 17(H) 7 - 16 [facility] Glucose 119(H) 70 - 100 mg/dL [facility] BUN 9 8 - 25 mg/dL [facility] Creatinine 0.7 0.5 - 1.3 mg/dL [facility] Comment: NOTE: Estimated GFR (Cockroft-Gault) will NOT be calculated unless patient Height and Weight were entered. Also, Kidney Disease Stage (GFR) and Estimated GFR (Cockroft-Gault) will NOT be calculated if Creatinine result is <0.2. Kidney Disease Stage >90 mL/MIN [facility] Comment: NOTE; ??The GFR is an [...] failure or on dialysis Est GFR (Cockcroft-G) 232 ml/MIN [facility] Comment: Estimated GFR(Cockroft-Gault)is used to calculate patient medication dosage Calcium 10.0 8.6 - 10.3 mg/dL [facility] Total Protein 7.9 6.4 - 8.3 g/dL [facility] Albumin 4.8 3.5 - 5.0 g/dL [facility] Globulin 3.1 2.3 - 3.5 gm/dL [facility] Albumin/Globulin Ratio 1.5 1.1 - 1.8 [facility] Total Bilirubin 1.0 0.0 - 1.2 mg/dL [facility] AST 17 0 - 40 U/L [facility] ALT 23 0 - 41 U/L [facility] Alkaline Phosphatase 80 40 - 129 U/L [facility] 01/19/2019 3:29 PM CDT 01/19/2019 3:37 PM CDT Narrative Resulting Agency Comment ER Jasmyn DAVIS LAB BLOOD ORDERABLES Faith barrett Result [address] [phone] * (ABNORMAL) CBC with auto differential (01/19/2019 3:29 PM CDT) WBC 10.7(H) 3.8 - 9.9 X10 3/ul [facility] RBC 5.65 4.30 - 5.80 x10 6/ul [facility] Hemoglobin 16.0 13.0 - 17.5 g/dL [facility] Hct 46.0 38.9 - 50.3 % [facility] MCV 81.4 81.3 - 96.4 fl [facility] MCH 28.3 27.1 - 33.3 pg [facility] MCHC 34.8 32.3 - 35.7 g/dl [facility] RDW 12.5 11.1 - 14.9 % [facility] Plt Count 240 150 - 400 x10 3/ul [facility] MPV 10.9 9.1 - 12.3 fl [facility] Neut % 87.4 % [facility] Immature Gran % 0.4 % [facility] Lymph % 8.6 % [facility] Brooke % 3.3 % [facility] Eos % 0.1 % [facility] AUTO BASO % 0.2 % [facility] NEUTROPHIL ABS # 9.4(H) 1.7 - 6.5 x10 3/ul [facility] Immature Gran # 0.0 0.0 - 0.1 x10 3/ul [facility] Absolute Lymphs (auto) 0.9 0.8 - 3.3 x10 3/ul [facility] Absolute Monos (auto) 0.4 0.2 - 0.8 x10 3/ul [facility] Absolute Eos (auto) 0.0 0.0 - 0.5 x10 3/ul [facility] BASOPHIL ABS # 0.0 0.0 - 0.1 x10 3/ul [facility] Nucleat RBC Rel Count 0.0 #/100WBC [facility] NRBC abs 0.00 0.00 - 0.01 x10 3/ul [facility] Absolute Neutrophils 9,400(H) 200 - 8,000 /ul [facility] 01/19/2019 3:29 PM CDT 01/19/2019 3:37 PM CDT Narrative Resulting Agency Comment ER us Jasmyn DAVIS LAB BLOOD ORDERABLES [place] [address], [facility] [phone] documented in this encounter Visit Diagnoses Not on filedocumented in this encounter Care Teams Glost Tile Sorter Relationship Specialty Start Date End Date Osbaldo Hong MD [address] [place] [address] PCP - General 01/13/19 documented as of this encounter
--- OUTSIDE RECORDS SUMMARY | 2024-05-26 02:47 | XMS_ITS | Encounter Summary ---
Author Organization [facility] Healthcare Address [address] [place] [address] Care Team Providers Care Set Staff Fitter Name Role Phone Unavailable Primary Care Provider Unavailabl e Encounter Details Date Type Department Care Team (Latest Contact Info) Description 06/19/2018 3:21 PM SENIOR APPLICATIONS ENGINEER - 06/19/2018 7:03 PM SENIOR APPLICATIONS ENGINEER Hospital Encounter [facility] Emergency Department [address] [place], [place] [id number] Daniele Smalls MD [facility] [place] [address] Discharge Disposition: Discharge to home or self care Social History Tobacco Use Types Packs/Day Years Used Date Smoking Tobacco: Never Assessed Sex and Gender Information Value Date Recorded Sex Assigned at Not on file Legal Sex Male 6:55 PM SENIOR APPLICATIONS ENGINEER Gender Identity Not on file Sexual Orientation Not on file documented as of this encounter Last Filed Vital Signs Vital Sign Reading Time Taken Comments Blood Pressure 133/86 06/19/2018 3:26 PM SENIOR APPLICATIONS ENGINEER Pulse 92 06/19/2018 3:26 PM SENIOR APPLICATIONS ENGINEER Temperature 36.5 ??C (97.7 ??F) 06/19/2018 3:26 PM CS T Respiratory Rate - - Oxygen Saturation 96% 06/19/2018 3:26 PM SENIOR APPLICATIONS ENGINEER Inhaled Oxygen Concentration - - Weight 121.3 kg (267 lb 6.7 oz) 06/19/2018 3:26 PM SENIOR APPLICATIONS ENGINEER Height 185.4 cm (6' 1 ) 06/19/2018 3:26 PM SENIOR APPLICATIONS ENGINEER Body Mass Index 35.28 06/19/2018 3:26 PM SENIOR APPLICATIONS ENGINEER documented in this encounter Medications at Time of Discharge omeprazole (PriLOSEC) 20 mg capsule Take 20 mg by mouth 2 (two) times a day 0 06/02/2018 11/14/2023 documented as of this encounter Discharge Disposition Disposition Code Departure Means Destination Discharge to home or self care documented in this encounter Plan of Treatment Not on file documented as of this encounter Procedures Procedure Name Priority Date/Time Associated Diagnosis Comments UA WITH CULTURE REFLEX Routine 9 6:18 PM SENIOR APPLICATIONS ENGINEER DRUGS OF ABUSE SCREEN, URINE WITHOUT CONFIRMATION Routine 06/19/2018 6:18 PM SENIOR APPLICATIONS ENGINEER CBC WITH AUTO DIFFERENTIAL Routine 06/19/2018 5:00 PM SENIOR APPLICATIONS ENGINEER LIPASE Routine 06/19/2018 5:00 PM SENIOR APPLICATIONS ENGINEER COMPREHENSIVE METABOLIC PANEL Routine 06/19/2018 5:00 PM [address]IOR APPLICATIONS [address]INEER CT ABDOMEN PELVIS W CONTRAST Routine 06/19/2018 3:41 PM SENIOR APPLICATIONS ENGINEER documented in this encounter Results * (ABNORMAL) UA with Culture Reflex (06/19/2018 6:18 PM SENIOR APPLICATIONS ENGINEER) Ur Collection Type CLEAN CATCH 06/19/2018 6:45 PM [facility] [address] HISTORICAL RESULTS Ur Culture Indicated? C&S NOT INDICATED 06/19/2018 6:45 PM SENIOR APPLICATIONS ENGINEER [address] HISTORICAL RESULTS Urine Color YELLOW YELLOW 06/19/2018 6:45 PM [facility] [address] HISTORICAL RESULTS Urine Clarity CLEAR CLEAR 06/19/2018 6:45 PM [facility] [employer] HISTORICAL RESULTS Urine Glucose (UA) NORMAL NORMAL mg/dL 06/19/2018 6:45 PM [employer] HISTORICAL RESULTS Urine Bilirubin NEGATIVE NEGATIVE mg/dl 06/19/2018 6:45 PM [employer] HISTORICAL RESULTS Urine Ketones 80(H) NEGATIVE mg/dL 06/19/2018 6:45 PM [employer] HISTORICAL RESULTS Ur Specific [place]yer 1.043(H) 1.005 - 1.025 06/19/2018 6:45 PM SENIOR APPLICATIONS ENGINEER [address] HISTORICAL RESULTS Urine Blood NEGATIVE NEGATIVE mg/dl 06/19/2018 6:45 PM [facility] [employer] HISTORICAL RESULTS Urine pH 9.0(H) 5.0 - 8.0 06/19/2018 6:45 PM [employer] HISTORICAL RESULTS Urine Protein NEGATIVE NEGATIVE mg/dL 06/19/2018 6:[address] [facility] HISTORICAL RESULTS Urine Urobilinogen NORMAL NORMAL mg/dL 06/19/2018 6:[address] [facility] HISTORICAL RESULTS Urine Nitrite NEGATIVE NEGATIVE 06/19/2018 6:[address] [facility] HISTORICAL RESULTS Ur Leukocyte Esterase NEGATIVE NEGATIVE Luis/ul 06/19/2018 6:[address] [facility] HISTORICAL RESULTS Ur Microscopic Review Not Indicated 06/19/2018 6:[address] [facility] HISTORICAL RESULTS 06/19/2018 6:18 PM SENIOR APPLICATIONS ENGINEER 06/19/2018 6:40 PM SENIOR APPLICATIONS ENGINEER Narrative [facility] HISTORICAL RESULTS - 06/19/2018 6:45 PM SENIOR APPLICATIONS ENGINEER Indication(s) for ordering ? Pain-pelv/flank/suprapubc us Debora Nance GUITAR INSTRUCTOR LAB URINE ORDERABLES Final Re sult [facility] HISTORICAL RESULTS * (ABNORMAL) Drug Screen, Urine without Confirmation (06/19/2018 6:18 PM SENIOR APPLICATIONS ENGINEER) Ur Amphetamine Screen NEGATIVE NEGATIVE 06/19/2018 7:[address] [facility] HISTORICAL RESULTS Comment: Cutoff Limit: ??1000 ng/mL ??Detects MDMA, MDA, d-Amphetamine, d-Methamphetamine, ?MBDB-HCl, MDEA and BDB-HCl Note: ??Positive results from this drug screen are unconfirmed. ??Unconfirmed screening results should not be used for non-medical purposes. Ur Barbiturates Screen NEGATIVE NEGATIVE 06/19/2018 7:[address] [facility] HISTORICAL RESULTS Comment: Cutoff limit: ??200 ng/mL ??Detects Secobarbitol, Cyclopentobarbital, Aprobarbital, ?Butalbital, Allobarbital, Butabarbital, ?Pentobarbital, Amobarbital and Phenobarbital U Benzodiazepines Scrn NEGATIVE NEGATIVE 06/19/2018 7:[address] [facility] HISTORICAL RESULTS Comment:Cutoff limit: 300 ng /mL U Cannabinoids Screen POSITIVE(H) NEGATIVE 06/19/2018 7:[address] [facility] HISTORICAL RESULTS Comment: RESULT CALLED at: 19406/19/18 by: [id number] to: [id number] [id number] ?? CONFIRMATION on Positive result requested: Cutoff Limit: 50 ng/mL U Cocaine Metab Screen NEGATIVE NEGATIVE 06/19/2018 7:[address] [facility] HISTORICAL RESULTS Comment:Cutoff limit: 300 ng /mL Urine Opiates Screen NEGATIVE NEGATIVE 06/19/2018 7:[address] [facility] HISTORICAL RESULTS Comment: Cutoff Limit: ??300 ng/mL Detects Morphine, Codeine, Ethyl Morphine, ?Diacetylmorphine, 6-Acetylmorphine, Dihydrocodeine, ?Yealxepa-5-tktktgmnrbi and Hydrocodone Ur Oxycodone Screen NEGATIVE NEGATIVE 06/19/2018 7:[address] [facility] HISTORICAL RESULTS Comment:Cutoff Limit: 100 n g/mL Urine Creatinine/MAGNOLIA 101.6 mg/dL 06/19/2018 7:[address] [facility] HISTORICAL RESULTS Comment:If Creatinine is < 4 0 mg/dL, recollection is suggested. 06/19/2018 6:18 PM SENIOR APPLICATIONS ENGINEER 06/19/2018 6:40 PM SENIOR APPLICATIONS ENGINEER Narrative [facility] HISTORICAL RESULTS - 06/19/2018 7:29 PM SENIOR APPLICATIONS ENGINEER Collected By velez us Debora Nance GUITAR INSTRUCTOR LAB URINE ORDERABLES Final Re sult [facility] HISTORICAL RESULTS * (ABNORMAL) CBC with auto differential (06/19/2018 5:00 PM SENIOR APPLICATIONS ENGINEER) WBC 10.0(H) 3.8 - 9.9 X10 3/ul 06/19/2018 5:[address] [facility] HISTORICAL RESULTS RBC 5.51 4.30 - 5.80 x10 6/ul 06/19/2018 5:[address] [facility] HISTORICAL RESULTS Hemoglobin 15.4 13.0 - 17.5 g/dL 06/19/2018 5:[address] [facility] HISTORICAL RESULTS Hct 46.0 38.9 - 50.3 % 06/19/2018 5:[address] [facility] HISTORICAL RESULTS MCV 83.5 81.3 - 96.4 fl 06/19/2018 5:[address] [facility] HISTORICAL RESULTS MCH 27.9 27.1 - 33.3 pg 06/19/2018 5:[address] [facility] HISTORICAL RESULTS MCHC 33.5 32.3 - 35.7 g/dl 06/19/2018 5:[address] [facility] HISTORICAL RESULTS RDW 12.4 11.1 - 14.9 % 06/19/2018 5:[address] [facility] HISTORICAL RESULTS Plt Count 235 150 - 400 x10 3/ul 06/19/2018 5:[address] [facility] HISTORICAL RESULTS MPV 10.8 9.1 - 12.3 fl 06/19/2018 5:[address] [facility] HISTORICAL RESULTS Neut % 83.8 % 06/19/2018 5:[address] [facility] HISTORICAL RESULTS Immature Gran % 0.4 % 9 5:[address] [facility] HISTORICAL RESULTS Lymph % 11.4 % 06/19/2018 5:[address] [facility] HISTORICAL RESULTS [place] % 3.9 % 06/19/2018 5:[address] [facility] HISTORICAL RESULTS Eos % 0.1 % 06/19/2018 5:[address] [facility] HISTORICAL RESULTS Baso % 0.4 % 06/19/2018 5:[address] [facility] HISTORICAL RESULTS Absolute Neuts (auto) 8.4(H) 1.7 - 6.5 x10 3/ul 06/19/2018 5:[address] [facility] HISTORICAL RESULTS Immature Gran # 0.0 0.0 - 0.1 x10 3/ul 06/19/2018 5:[address] [facility] HISTORICAL RESULTS Absolute Lymphs (auto) 1.1 0.8 - 3.3 x10 3/ul 06/19/2018 5:[address] [facility] HISTORICAL RESULTS Absolute Monos (auto) 0.4 0.2 - 0.8 x10 3/ul 06/19/2018 5:[address] [facility] HISTORICAL RESULTS Absolute Eos (auto) 0.0 0.0 - 0.5 x10 3/ul 06/19/2018 5:[address] [facility] HISTORICAL RESULTS Absolute Basos (auto) 0.0 0.0 - 0.1 x10 3/ul 06/19/2018 5:12 PM SENIOR APPLICATIONS ENGINEER [facility] HISTORICAL RESULTS Nucleat RBC Rel Count 0.0 #/100WBC 06/19/2018 5:[address] [facility] HISTORICAL RESULTS Absolute Nucleated RBC 0.00 0.00 - 0.01 x10 3/ul 06/19/2018 5:[address] [facility] HISTORICAL RESULTS Absolute Neutrophils 8400(H) 200 - 8000 /ul 06/19/2018 5:[address] [facility] HISTORICAL RESULTS 06/19/2018 5:00 PM SENIOR APPLICATIONS ENGINEER 06/19/2018 5:03 PM SENIOR APPLICATIONS ENGINEER Historical Provider MD LAB BLOOD ORDERABLES Faith l Result Performing Organization Address City/[facility]/ZIP Co de Phone Number [facility] HISTORICAL RESULTS * Lipase (06/19/2018 5:00 PM SENIOR APPLICATIONS ENGINEER) Pathologist [facility] Lipase 13 13 - 60 U/L 06/19/2018 5:[address] [facility] HISTORICAL RESULTS 06/19/2018 5:00 PM SENIOR APPLICATIONS ENGINEER 06/19/2018 5:03 PM SENIOR APPLICATIONS ENGINEER Historical Provider MD LAB BLOOD ORDERABLES Faith l Result [facility] HISTORICAL RESULTS * (ABNORMAL) Comprehensive metabolic panel (06/19/2018 5:00 PM SENIOR APPLICATIONS ENGINEER) Pathologist [facility] Sodium 137 135 - 145 mmol/L 06/19/2018 5:[address] [facility] HISTORICAL RESULTS Potassium 3.6 3.3 - 5.1 mmol/L 06/19/2018 5:[address] [facility] HISTORICAL RESULTS Chloride 101 96 - 108 mmol/L 06/19/2018 5:[address] [facility] HISTORICAL RESULTS Carbon Dioxide 23 22 - 32 mmol/L 06/19/2018 5:[address] [facility] HISTORICAL RESULTS Anion Gap 13 7 - 16 06/19/2018 5:[address] [facility] HISTORICAL RESULTS Glucose 102(H) 70 - 100 mg/dL 06/19/2018 5:27 PM [employer] [facility] [employer] [facility] HISTORICAL RESULTS BUN 15 6 - 20 mg/dL 06/19/2018 5:27 PM [employer] [facility] RES[facility] Creatinine 0.6 0.5 - 1.3 mg/dL 06/19/2018 5:27 PM [employer] [facility] HISTORICAL RESULTS Comment: NOTE: Estimated GFR (Cockroft-Gault) will NOT be calculated unless patient Height and Weight were entered. Also, Kidney Disease Stage (GFR) and Estimated GFR (Cockroft-Gault) will NOT be calculated if Creatinine result is <0.2. Kidney Disease Stage > 90 mL/MIN 06/19/2018 5:27 PM [employer] [facility] [employer] [facility] HISTORICAL RESULTS Comment: NOTE; ??The GFR is an estimated [...] mL/min ? Kidney failure or on dialysis @ Est GFR (Cockcroft-G) 268 ml/MIN 06/19/2018 5:27 PM [employer] [facility] [employer] HISTORICAL RESULTS Comment: Estimated GFR(Cockroft-Gault)is used to calculate patient medication dosage Calcium 9.0 8.6 - 10.0 mg/dL 06/19/2018 5:27 PM [employer] [facility] [employer] HISTORICAL RESULTS Total Protein 6.7 6.4 - 8.3 g/dL 06/19/2018 5:27 PM SENIOR APPLICATIONS ENGINEER [facility] HISTORICAL RESULTS Albumin 4.2 3.5 - 5.2 g/dL 06/19/2018 5:27 PM SENIOR APPLICATIONS ENGINEER [facility] HISTORICAL RESULTS Globulin 2.5 2.3 - 3.5 gm/dL 06/19/2018 5:27 PM SENIOR APPLICATIONS ENGINEER [facility] HISTORICAL RESULTS Albumin/Globulin Ratio 1.7 1.1 - 1.8 06/19/2018 5:27 PM SENIOR APPLICATIONS ENGINEER [facility] HISTORICAL RESULTS Total Bilirubin 1.0 0.0 - 1.2 mg/dL 06/19/2018 5:27 PM SENIOR APPLICATIONS ENGINEER [facility] HISTORICAL RESULTS AST 19 0 - 40 U/L 06/19/2018 5:27 PM SENIOR APPLICATIONS ENGINEER [facility] HISTORICAL RESULTS ALT 25 0 - 41 U/L 06/19/2018 5:27 PM SENIOR APPLICATIONS ENGINEER [facility] HISTORICAL RESULTS Alkaline Phosphatase 81 40 - 129 U/L 06/19/2018 5:[address] [facility] HISTORICAL RESULTS 06/19/2018 5:00 PM SENIOR APPLICATIONS ENGINEER 06/19/2018 5:03 PM SENIOR APPLICATIONS ENGINEER us Historical Provider LAB BLOOD ORDERABLES Faith l Result [facility] HISTORICAL RESULTS * CT Abdomen Pelvis W Contrast (06/19/2018 3:41 PM SENIOR APPLICATIONS ENGINEER) Anatomical Region Laterality Modality Body N/A Computed Tomogra phy 06/19/2018 3:41 PM SENIOR APPLICATIONS ENGINEER Impressions 06/19/2018 5:13 PM SENIOR APPLICATIONS ENGINEER ?? 1.No CT findings to explain the patient's symptoms. 2.Mild sigmoid colon diverticulosis. 3.Broad-based disc bulge at L4-5 with mild spinal canal narrowing. THIS IS AN ELECTRONICALLY VERIFIED FINAL REPORT 06/19/2018 5:10 PM - Electronically signed by Marin Otero M.D. LB: CORY D: ??06/19/2018 5:10 PM T: ??06/19/2018 5:10 PM Report ID: [id number] Reading Location: ??[id number] [EOD] Narrative 06/19/2018 5:13 PM SENIOR APPLICATIONS ENGINEER EXAM DESCRIPTION: ??CT Abd/Pelvis W IV Contrast REASON FOR STUDY: ??Lower abdominal pain for 1 day. TECHNIQUE: ??CT scan of the abdomen and pelvis performed with intravenous and without oral contrast using helical scanning technique with dynamic intravenous contrast injection. Reconstructed coronal and sagittal MPR images reviewed. All images stored on PACS. Automated exposure control was used as a dose optimization technique for this examination. CONTRAST TYPE/DOSE: ??100 mL of Optiray 350 was injected via right hand vein. ?? No adverse reaction reported. COMPARISON: ??CT abdomen and pelvis 05/28/2018 FINDINGS: LOWER CHEST: No significant pulmonary abnormalities. No pleural effusion. LIVER: Normal size. ??No identified cystic or solid masses. GALLBLADDER: No stones identified. No wall thickening or inflammatory changes. BILE DUCTS: No intrahepatic or extrahepatic ductal dilatation. SPLEEN: Normal size. ??No focal lesions. PANCREAS: No identified cystic or solid masses. No significant calcifications. No adjacent inflammation or peripancreatic fluid collections. Pancreatic duct not dilated. ADRENALS: Normal. KIDNEYS/URINARY TRACT: Stable appearance of an interpolar right renal cyst. ?? No hydronephrosis. ??No hydroureter. ??Circumaortic left renal vein. ??Urinary bladder is unremarkable. GI: Mild sigmoid colon diverticulosis. ??No CT evidence of diverticulitis the appendix is normal. ??No dilated loops of bowel to suggest obstruction. PERITONEUM: No ascites or free air. RETROPERITONEUM: No mass or adenopathy. REPRODUCTIVE: No significant abnormality. VASCULATURE: No abdominal aortic aneurysm. MUSCULOSKELETAL: No significant abnormality. ??Broad-based disc bulge at L5-S1 without significant spinal canal narrowing. ??Broad-based disc bulge at L4-5 with mild spinal canal narrowing. OTHER: No other abnormality. Procedure Note Provider, MD Sherri - 10/12/2020 EXAM DESCRIPTION: CT Abd/Pelvis W IV Contrast REASON FOR STUDY: Lower abdominal pain for 1 day[address] TECHNIQUE: CT scan of the abdomen and pelvis performed with intravenousand without oral contrast using helical scanning technique with dynamic intravenous contrast injection. Reconstructed coronal and sagittal MPRimages reviewed. All images stored on PACS. Automated exposure control was used as a dose optimization technique forthis examination. CONTRAST TYPE/DOSE: 100 mL of Optiray 350 was injected via right handvein. No adverse reaction reported. COMPARISON: CT abdomen and pelvis 05/28/2018 FINDINGS: LOWER CHEST: No significant pulmonary abnormalities. No pleuraleffusion. LIVER: Normal size. No identified cystic or solid masses. GALLBLADDER: No stones identified. No wall thickening or inflammatorychanges. BILE DUCTS: No intrahepatic or extrahepatic ductal dilatation. SPLEEN: Normal size. No focal lesions. PANCREAS: No identified cystic or solid masses. No significantcalcifications. No adjacent inflammation or peripancreatic fluid collections. Pancreaticduct not dilated. ADRENALS: Normal. KIDNEYS/URINARY TRACT: Stable appearance of an interpolar right renalcyst. No hydronephrosis. No hydroureter. Circumaortic left renal vein.Urinary bladder is unremarkable. GI: Mild sigmoid colon diverticulosis. No CT evidence of diverticulitisthe appendix is normal. No dilated loops of bowel to suggest obstruction. PERITONEUM: No ascites or free air. RETROPERITONEUM: No mass or adenopathy. REPRODUCTIVE: No significant abnormality. VASCULATURE: No abdominal aortic aneurysm. MUSCULOSKELETAL: No significant abnormality. Broad-based disc bulge atL5-S1 without significant spinal canal narrowing. Broad-based disc bulge atL4-5 with mild spinal canal narrowing. OTHER: No other abnormality. IMPRESSION: 1.No CT findings to explain the patient's symptoms. 2.Mild sigmoid colon diverticulosis. 3.Broad-based disc bulge at L4-5 with mild spinal canal narrowing. THIS IS AN ELECTRONICALLY VERIFIED FINAL REPORT 06/19/2018 5:10 PM - Electronically signed by Marin Otero M.D. LB: CORY Report ID: [id number] Reading Location: [place] [id number] [EOD] Debora Nance NP IMG CT PROCEDURES Final Resul t documented in this encounter Visit Diagnoses Not on filedocumented in this encounter
--- OUTSIDE RECORDS SUMMARY | 2024-05-26 02:47 | XMS_ITS | Encounter Summary ---
Author Organization [facility] Healthcare Address [address] [place] [address] Care Team Providers Care Grinder Outside Diameter Name Role Phone Osbaldo Hong MD Primary Care Provider +1- [phone] Encounter Details Date Type Department Care Team (Late st Contact Info) Description 12/04/2018 3:29 PM CDT - 12/04/2018 6:04 PM CDT Hospital Encounter [facility] Emergency Department [address] [place] [address] Unknown, Deloris Gonzalez MD [address] [facility] [place] [address] Discharge Disposition: Discharge to home or self care Social History Tobacco Use Types Packs/Day Years Used Date Smoking Tobacco: Never Smokeless Tobacco: Never Alcohol Use Standard Drinks/Week Comments Yes 0 (1 standard drink = 0.6 oz pur e alcohol) Sex and Gender Information Value Date Recorded Sex Assigned at Not on file Legal Sex Male 6:55 PM BRAND ENGINEER Gender Identity Not on file Sexual Orientation Not on file documented as of this encounter Last Filed Vital Signs Vital Sign Reading Time Taken Comments Blood Pressure 135/76 12/04/2018 3:33 PM CDT Pulse 105 12/04/2018 3:33 PM CDT Temperature 36.9 ??C (98.4 ??F) 12/04/2018 3:33 PM CD T Respiratory Rate - - Oxygen Saturation 100% 12/04/2018 3:33 PM CDT Inhaled Oxygen Concentration - - Weight 123.6 kg (272 lb 7.9 oz) 12/04/2018 3:33 PM CDT Height 185.4 cm (6' 1 ) 12/04/2018 3:33 PM CDT Body Mass Index 35.95 12/04/2018 3:33 PM CDT documented in this encounter Medications [...] Diagnosis Comments CBC WITH AUTO DIFFERENTIAL Routine 12/04/2018 3:47 PM CDT LIPASE Routine 12/04/2018 3:47 PM CDT COMPREHENSIVE METABOLIC PANEL Routine 12/04/2018 3:47 PM CDT documented in this encounter Results * Lipase (12/04/2018 3:47 PM CDT) Lipase 13 13 - 60 U/L [facility] 12/04/2018 3:47 PM CDT 12/04/2018 3:55 PM CDT Narrative Resulting Agency Comment ER us Beulah Adams NP LAB BLOOD ORDERABLES Final Res ult [address] [phone] * (ABNORMAL) Comprehensive metabolic panel (12/04/2018 3:47 PM CDT) Sodium 143 135 - 145 mmol/L [facility] Potassium 3.8 3.3 - 5.1 mmol/L [facility] Chloride 107 96 - 108 mmol/L [facility] Carbon Dioxide 20(L) 22 - 32 mmol/L [facility] Anion Gap 16 7 - 16 [facility] Glucose 145(H) 70 - 100 mg/dL [facility] BUN 19 8 - 25 mg/dL [facility] Creatinine 0.7 0.5 - 1.3 mg/dL [facility] Comment: NOTE: Estimated GFR (Cockroft-Gault) will NOT be calculated unless patient Height and Weight were entered. Also, Kidney Disease Stage (GFR) and Estimated GFR (Cockroft-Gault) will NOT be calculated if Creatinine result is <0.2. Kidney Disease Stage >90 mL/MIN [facility] Comment: NOTE; ??The GFR is an estimated [...] on dialysis Est GFR (Cockcroft-G) 232 ml/MIN [facility] Comment: Estimated GFR(Cockroft-Gault)is used to calculate patient medication dosage Calcium 10.3 8.6 - 10.3 mg/dL [facility] Total Protein 8.2 6.4 - 8.3 g/dL [facility] Albumin 5.1(H) 3.5 - 5.0 g/dL [facility] Globulin 3.1 2.3 - 3.5 gm/dL [facility] Albumin/Globulin Ratio 1.6 1.1 - 1.8 [facility] Total Bilirubin 1.2 0.0 - 1.2 mg/dL [facility] AST 22 0 - 40 U/L [facility] ALT 29 0 - 41 U/L [facility] Alkaline Phosphatase 90 40 - 129 U/L [facility] 12/04/2018 3:47 PM CDT 12/04/2018 3:55 PM CDT Narrative Resulting Agency Comment ER us Beulah Adams SOLID TIRE FINISHER LAB BLOOD ORDERABLES Final Res ult Performing Organization Address City/State/[facility] [place] [address], [facility] [phone] * (ABNORMAL) CBC with auto differential (12/04/2018 3:47 PM CDT) WBC 12.9(H) 3.8 - 9.9 X10 3/ul [facility] RBC 5.91(H) 4.30 - 5.80 x10 6/ul [facility] Hemoglobin 16.4 13.0 - 17.5 g/dL [facility] Hct 50.0 38.9 - 50.3 % [facility] MCV 84.6 81.3 - 96.4 fl [facility] MCH 27.7 27.1 - 33.3 pg [facility] MCHC 32.8 32.3 - 35.7 g/dl [facility] RDW 12.6 11.1 - 14.9 % [facility] Plt Count 270 150 - 400 x10 3/ul [facility] MPV 11.6 9.1 - 12.3 fl [facility] Neut % 90.0 % [facility] AST - MEDIPure life renal Immature Gran % 0.5 % [place] [facility] Lymph % 7.7 % [facility] AST - [employer] [place] % 1.6 % [facility] Eos % 0.0 % [facility] AST [facility] AUTO BASO % 0.2 % [facility] NEUTROPHIL ABS # 11.6(H) 1.7 - 6.5 x10 3/ul [facility] Immature Gran # 0.1 0.0 - 0.1 x10 3/ul [facility] Absolute Lymphs (auto) 1.0 0.8 - 3.3 x10 3/ul [facility] Absolute Monos (auto) 0.2 0.2 - 0.8 x10 3/ul [facility] Absolute Eos (auto) 0.0 0.0 - 0.5 x10 3/ul [facility] BASOPHIL ABS # 0.0 0.0 - 0.1 x10 3/ul [facility] Nucleat RBC Rel Count 0.0 #/100WBC [facility] NRBC abs 0.00 0.00 - 0.01 x10 3/ul [facility] Absolute Neutrophils 11,600(H) 200 - 8,000 /ul [facility] 12/04/2018 3:47 PM CDT 12/04/2018 3:55 PM CDT Narrative Resulting Agency Comment ER Beulah Adams SOLID TIRE FINISHER LAB BLOOD ORDERABLES Final Res ult [address] [phone] documented in this encounter Visit Diagnoses Not on filedocumented in this encounter Care Teams Grinder Outside Diameter Relationship Specialty Start Date End Date Osbaldo Hong MD PCP - General 07/23/18 01/05/19 documented as of this encounter
--- OUTSIDE RECORDS SUMMARY | 2024-05-26 02:47 | XMS_ITS | Encounter Summary ---
Author Organization [facility] Healthcare Address [address] [place] [address] Care Team Providers Care Mobile Device Engineer Name Role Phone Osbaldo Hong MD Primary Care Provider +1- [phone] Encounter Details Date Type Department Care Team (Late st Contact Info) Description 03/18/2019 11:12 AM CDT - 03/18/2019 12:31 PM CDT Hospital Encounter [facility] Emergency Department [address] [place] [address] Unknown, Notinfizabel Hdz, Amrit Preston, DIESEL POWERPLANT SUPERVISOR [address] [facility] [place] [address] Discharge Disposition: Discharge to home or self care Social History Tobacco Use Types Packs/Day Years Used Date Smoking Tobacco: Never Smokeless Tobacco: Never Alcohol Use Standard Drinks/Week Comments Yes 0 (1 standard drink = 0.6 oz pur e alcohol) Sex and Gender Information Value Date Recorded Sex Assigned at Not on file 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 Gender Identity Not on file Sexual Orientation Not on file documented as of this encounter Last Filed Vital Signs Vital Sign Reading Time Taken Comments Blood Pressure 123/82 03/18/2019 11:13 AM CDT Pulse 80 03/18/2019 11:13 AM CDT Temperature 36.6 ??C (97.9 ??F) 03/18/2019 1 1:13 AM CDT Respiratory Rate - - Oxygen Saturation 98% 03/18/2019 11: 13 AM CDT Inhaled Oxygen Concentration - - Weight 126.3 kg (278 lb 7.1 oz) 019 11:13 AM CDT Height 185.4 cm (6' 1 ) 03/18/2019 11:1 3 AM CDT Body Mass Index 36.74 03/18/2019 11:13 AM CDT documented in this encounter [...] Diagnosis Comments CBC WITH AUTO DIFFERENTIAL Routine 03/18/2019 11:22 AM CDT LIPASE Routine 03/18/2019 11:22 AM CDT COMPREHENSIVE METABOLIC PANEL Routine 03/18/2019 11:22 AM CDT documented in this encounter Results * Lipase (03/18/2019 11:22 AM CDT) Lipase 14 13 - 60 U/L [facility] 03/18/2019 11:2 2 AM CDT 03/18/2019 11:27 AM CDT Narrative Resulting Agency Comment ER us Amrit Hdz NP LAB BLOOD ORDERABLES Faith barrett Result [address] [phone] * (ABNORMAL) Comprehensive metabolic panel (03/18/2019 11:22 AM CDT) Sodium 137 135 - 145 mmol/L [facility] Potassium 3.4 3.3 - 5.1 mmol/L [facility] Chloride 93(L) 96 - 108 mmol/L [facility] Carbon Dioxide 26 22 - 32 mmol/L [facility] Anion Gap 18(H) 7 - 16 [facility] Glucose 111(H) 70 - 100 mg/dL [facility] BUN 15 8 - 25 mg/dL [facility] Creatinine 1.0 0.5 - 1.3 mg/dL [facility] Comment: NOTE: Estimated GFR (Cockroft-Gault) will NOT be calculated unless patient Height and Weight were entered. Also, Kidney Disease Stage (GFR) and Estimated GFR (Cockroft-Gault) will NOT be calculated if Creatinine result is <0.2. Kidney Disease Stage >90 mL/MIN [facility] Comment: NOTE; ??The GFR is an estimated [...] failure or on dialysis Est GFR (Cockcroft-G) 164 ml/MIN [facility] Comment: Estimated GFR(Cockroft-Gault)is used to calculate patient medication dosage Calcium 10.3 8.6 - 10.3 mg/dL [facility] Total Protein 8.0 6.4 - 8.3 g/dL [facility] Albumin 4.6 3.5 - 5.0 g/dL [facility] Globulin 3.4 2.3 - 3.5 gm/dL [facility] Albumin/Globulin Ratio 1.4 1.1 - 1.8 [facility] Total Bilirubin 1.7(H) 0.0 - 1.2 mg/dL [facility] AST 35 0 - 40 U/L [facility] ALT 47(H) 0 - 41 U/L [facility] Alkaline Phosphatase 90 40 - 129 U/L [facility] 03/18/2019 11:2 2 AM CDT 03/18/2019 11:27 AM CDT Narrative Resulting Agency Comment ER Amrit Hdz DIESEL POWERPLANT SUPERVISOR LAB BLOOD ORDERABLES Faith barrett Result Performing Organization Address City/State/[facility] Co de Phone Number [place] [id number] [address] [phone] * (ABNORMAL) CBC with auto differential (03/18/2019 11:22 AM CDT) WBC 13.2(H) 3.8 - 9.9 X10 3/ul [facility] RBC 6.04(H) 4.30 - 5.80 x10 6/ul [facility] Hemoglobin 17.1 13.0 - 17.5 g/dL [facility] Hct 48.4 38.9 - 50.3 % [facility] MCV 80.1(L) 81.3 - 96.4 fl [facility] MCH 28.3 27.1 - 33.3 pg [facility] MCHC 35.3 32.3 - 35.7 g/dl [facility] RDW 12.2 11.1 - 14.9 % [facility] Plt Count 280 150 - 400 x10 3/ul [facility] MPV 10.3 9.1 - 12.3 fl [facility] Neut % 73.0 % [facility] - [facility] Immature Gran % 0.5 % [place] [place] [facility] Lymph % 18.0 % [facility] [place] % 7.1 % [facility] AST - [employer] Eos % 0.9 % [facility] [employer] AUTO BASO % 0.5 % [facility] NEUTROPHIL ABS # 9.6(H) 1.7 - 6.5 x10 3/ul [facility] [employer] [facility] Immature Gran # 0.1 0.0 - 0.1 x10 3/ul [facility] Absolute Lymphs (auto) 2.4 0.8 - 3.3 x10 3/ul [facility] Absolute Monos (auto) 0.9(H) 0.2 - 0.8 x10 3/ul [facility] Absolute Eos (auto) 0.1 0.0 - 0.5 x10 3/ul [facility] BASOPHIL ABS # 0.1 0.0 - 0.1 x10 3/ul [facility] Nucleat RBC Rel Count 0.0 #/100WBC [facility] NRBC abs 0.00 0.00 - 0.01 x10 3/ul [facility] Absolute Neutrophils 9,600(H) 200 - 8,000 /ul [facility] 03/18/2019 11:2 2 AM CDT 03/18/2019 11:27 AM CDT Narrative Resulting Agency Comment ER Amrit Hdz DIESEL POWERPLANT SUPERVISOR LAB BLOOD ORDERABLES Faith l Result [facility] [address] [place] [address], [facility] [phone] documented in this encounter Visit Diagnoses Not on filedocumented in this encounter Care Teams Mobile Device Engineer Relationship Specialty Start Date End Date Osbaldo Hong MD [address] [place] [address] PCP - General 01/13/19 documented as of this encounter
--- OUTSIDE RECORDS SUMMARY | 2024-05-26 02:47 | XMS_ITS | Encounter Summary ---
Author Organization [facility] Healthcare Address [address] [place] [address] Care Team Providers Care Supervisor [employer] Name Role Phone Osbaldo Hong MD Primary Care Provider +1- [phone] Encounter Details Date Type Department Care Team (Late st Contact Info) Description 01/16/2019 10:19 AM CDT - 01/16/2019 12:00 PM CDT Hospital Encounter [facility] Emergency Department [address] [place] [address] Unknown, [place] [address] [facility] [address] [place] [address] Discharge Disposition: Discharge to home or self care Social History Tobacco Use Types Packs/Day Years Used Date Smoking Tobacco: Never Smokeless Tobacco: Never Alcohol Use Standard Drinks/Week Comments Yes 0 (1 standard drink = 0.6 oz pur e alcohol) Sex and Gender Information Value Date Recorded Sex Assigned at Not on file 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 Gender Identity Not on file Sexual Orientation Not on file documented as of this encounter Last Filed Vital Signs Vital Sign Reading Time Taken Comments Blood Pressure 150/83 01/16/2019 10:20 AM CDT Pulse 80 01/16/2019 10:20 AM CDT Temperature 36.8 ??C (98.2 ??F) 01/16/2019 10:20 AM C DT Respiratory Rate - - Oxygen Saturation 100% 01/16/2019 10:20 AM CDT Inhaled Oxygen Concentration - - Weight 124.2 kg (273 lb 13 oz) 01/16/2019 10:20 AM CDT Height 185.4 cm (6' 1 ) 01/16/2019 10:20 AM CDT Body Mass Index 36.13 01/16/2019 10:20 AM CDT documented in this encounter Medications [...] filedocumented in this encounter Care Teams Supervisor [employer] Relationship Specialty Start Date End Date Osbaldo Hong MD [address] [place] [address] PCP - General 01/13/19 documented as of this encounter
--- OUTSIDE RECORDS SUMMARY | 2024-05-26 02:47 | XMS_ITS | Encounter Summary ---
Author Organization [facility] Healthcare Address [address] [place] [address] Care Team Providers Care Real Estate Broker Name Role Phone Osbaldo Hong MD Primary Care Provider +1- [phone] Encounter Details Date Type Department Care Team (Late st Contact Info) Description 01/15/2019 9:29 AM CDT - 01/15/2019 11:27 AM CDT Hospital Encounter [facility] Emergency Department [address] [place] [address] Unknown, [place] [address] [facility] [address] [place] [address] Discharge Disposition: Discharge to home or self care Social History Tobacco Use Types Packs/Day Years Used Date Smoking Tobacco: Never Smokeless Tobacco: Never Alcohol Use Standard Drinks/Week Comments Yes 0 (1 standard drink = 0.6 oz pur e alcohol) Sex and Gender Information Value Date Recorded Sex Assigned at Not on file 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 Gender Identity Not on file Sexual Orientation Not on file documented as of this encounter Last Filed Vital Signs Vital Sign Reading Time Taken Comments Blood Pressure 145/87 01/15/2019 9:29 AM CDT Pulse 80 01/15/2019 9:29 AM CDT Temperature 36.6 ??C (97.9 ??F) 01/15/2019 9:29 AM CD T Respiratory Rate - - Oxygen Saturation 98% 01/15/2019 9:29 AM CDT Inhaled Oxygen Concentration - - Weight 124.3 kg (274 lb 0.6 oz) 01/15/2019 9:29 AM CDT Height 185.4 cm (6' 1 ) 01/15/2019 9:29 AM CDT Body Mass Index 36.15 01/15/2019 9:29 AM CDT documented in this encounter Medications [...] Date/Time Associated Diagnosis Comments URINALYSIS, COMPLETE Routine 01/15/2019 10:57 AM CDT DRUGS OF ABUSE SCREEN, URINE WITHOUT CONFIRMATION Routine 01/15/2019 10:57 AM CDT CBC WITH AUTO DIFFERENTIAL Routine 01/15/2019 9:38 AM CDT LIPASE Routine 01/15/2019 9:38 AM CDT COMPREHENSIVE METABOLIC PANEL Routine 01/15/2019 9:38 AM CDT documented in this encounter Results * Drugs of Abuse Screen, Urine without Confirmation (01/15/2019 10:57 AM CDT) [facility] Amphetamines NOT DETECTED [facility] Comment: This assay uses 500 ng/mL as a cutoff for a positive result. Barbiturates NOT DETECTED [facility] Comment: This assay uses 200 ng/mL as a cutoff for a positive result. Urine Fentanyl NOT DETECTED [facility] Comment: This assay uses 1 ng/mL as a cutoff for a positive result. Benzodiazepines NOT DETECTED [facility] Comment: This assay uses 100 ng/mL as a cutoff for a positive result. Cannabinoids DETECTED [facility] Comment: This assay uses 50 ng/mL as a cutoff for a positive result. Cocaine NOT DETECTED [facility] Comment: This assay uses 150 ng/mL as a cutoff for a positive result. Opiates NOT DETECTED [facility] Comment: This assay uses 300 ng/mL as a cutoff for a positive result. Urine methadone NOT DETECTED [facility] Comment: This assay uses 300 ng/mL as a cutoff for a positive result. Urine phencyclidine plus NOT DETECTED [facility] Comment: This assay uses 25 ng/mL as a cutoff for a positive result. Oxycodone NOT DETECTED [facility] Comment: This assay uses 100 ng/mL as a cutoff for a positive result. Urine Creatinine/MAGNOLIA 81.0 mg/dL [facility] Comment: If Creatinine is < 40 mg/dL, recollection is suggested. 01/15/2019 10:5 7 AM CDT 01/15/2019 11:03 AM CDT Narrative [facility] - 01/15/2019 11:27 AM CDT Collected By at Resulting Agency Comment ER Elli DAVIS LAB URINE ORDERABLES Fin al Result [address] [phone] * (ABNORMAL) Urinalysis, Complete (01/15/2019 10:57 AM CDT) Ur Collection Type CLEAN CATCH [facility] Urine Color YELLOW YELLOW [facility] Urine Clarity CLEAR CLEAR [facility] Urine Glucose (UA) NORMAL NORMAL mg/dL [facility] Urine Bilirubin NEGATIVE NEGATIVE mg/dl [facility] Urine Ketones 20 NEGATIVE mg/dL [facility] Ur Specific Zamora 1.014 1.005 - 1.025 [facility] Urine Blood NEGATIVE NEGATIVE mg/dl [facility] Urine pH 9.0(H) 5.0 - 8.0 [facility] Urine Protein NEGATIVE NEGATIVE mg/dL [facility] Urine Urobilinogen NORMAL NORMAL mg/dL [facility] Urine Nitrite NEGATIVE NEGATIVE [facility] Ur Leukocyte Esterase NEGATIVE NEGATIVE Luis/ul [facility] Ur Microscopic Review Indicated or Ordered [facility] Urine RBC <1 0 - 2 /HPF [facility] Urine WBC 1 0 - 2 /HPF [facility] Urine Mucus RARE /LPF [facility] 01/15/2019 10:5 7 AM CDT 01/15/2019 11:03 AM CDT Narrative [facility] - 01/15/2019 11:23 AM CDT at Clean catch Resulting Agency Comment ER Elli DAVIS LAB URINE ORDERABLES Fin al Result Performing Organization Address City/[facility] Co de Phone Number [address] [phone] * Lipase (01/15/2019 9:38 AM CDT) Lipase 14 13 - 60 U/L [facility] 01/15/2019 9:38 AM CDT 01/15/2019 9:46 AM CDT Narrative Resulting Agency Comment ER Elli DAVIS LAB BLOOD ORDERABLES Fin al Result Performing Organization Address City/[facility] de Phone Number [address] [phone] * (ABNORMAL) Comprehensive metabolic panel (01/15/2019 9:38 AM CDT) Sodium 140 135 - 145 mmol/L [facility] Potassium 3.8 3.3 - 5.1 mmol/L [facility] Chloride 102 96 - 108 mmol/L [facility] Carbon Dioxide 21(L) 22 - 32 mmol/L [facility] Anion Gap 17(H) 7 - 16 [facility] Glucose 122(H) 70 - 100 mg/dL [facility] BUN 11 8 - 25 mg/dL [facility] Creatinine 0.8 0.5 - 1.3 mg/dL [facility] Comment: NOTE: Estimated GFR (Cockroft-Gault) will NOT be calculated unless patient Height and Weight were entered. Also, Kidney Disease Stage (GFR) and Estimated GFR (Cockroft-Gault) will NOT be calculated if Creatinine result is <0.2. Kidney Disease Stage >90 mL/MIN [facility] Comment: NOTE; ??The GFR is an [...] failure or on dialysis Est GFR (Cockcroft-G) 203 ml/MIN [facility] Comment: Estimated GFR(Cockroft-Gault)is used to calculate patient medication dosage Calcium 10.0 8.6 - 10.3 mg/dL [facility] Total Protein 7.8 6.4 - 8.3 g/dL [facility] Albumin 4.8 3.5 - 5.0 g/dL [facility] Globulin 3.0 2.3 - 3.5 gm/dL [facility] Albumin/Globulin Ratio 1.6 1.1 - 1.8 [facility] Total Bilirubin 1.3(H) 0.0 - 1.2 mg/dL [facility] AST 17 0 - 40 U/L [facility] ALT 21 0 - 41 U/L [facility] Alkaline Phosphatase 81 40 - 129 U/L [facility] 01/15/2019 9:38 AM CDT 01/15/2019 9:46 AM CDT Narrative Resulting Agency Comment ER Elli DAVIS LAB BLOOD ORDERABLES Fin al Result [address] [phone] * (ABNORMAL) CBC with auto differential (01/15/2019 9:38 AM CDT) WBC 14.8(H) 3.8 - 9.9 X10 3/ul [facility] RBC 5.79 4.30 - 5.80 x10 6/ul [facility] Hemoglobin 16.3 13.0 - 17.5 g/dL [facility] Hct 47.0 38.9 - 50.3 % [facility] MCV 81.2(L) 81.3 - 96.4 fl [facility] MCH 28.2 27.1 - 33.3 pg [facility] MCHC 34.7 32.3 - 35.7 g/dl [facility] RDW 12.8 11.1 - 14.9 % [facility] Plt Count 266 150 - 400 x10 3/ul [facility] MPV 10.5 9.1 - 12.3 fl [facility] Neut % 78.0 % [facility] [employer] Immature Gran % 0.5 % [facility] Lymph % 15.3 % [facility] AST - [employer] [place] % 5.3 % [facility] AST - [employer] Eos % 0.7 % [facility] AST [employer] [facility] AUTO BASO % 0.2 % [facility] NEUTROPHIL ABS # 11.6(H) 1.7 - 6.5 x10 3/ul [facility] Immature Gran # 0.1 0.0 - 0.1 x10 3/ul [facility] Absolute Lymphs (auto) 2.3 0.8 - 3.3 x10 3/ul [facility] Absolute Monos (auto) 0.8 0.2 - 0.8 x10 3/ul [facility] Absolute Eos (auto) 0.1 0.0 - 0.5 x10 3/ul [facility] BASOPHIL ABS # 0.0 0.0 - 0.1 x10 3/ul [facility] Nucleat RBC Rel Count 0.0 #/100WBC [facility] NRBC abs 0.00 0.00 - 0.01 x10 3/ul [facility] Absolute Neutrophils 11,600(H) 200 - 8,000 /ul [facility] 01/15/2019 9:38 AM CDT 01/15/2019 9:46 AM CDT Narrative Resulting Agency Comment ER Elli DAVIS LAB BLOOD ORDERABLES Fin al Result Performing Organization Address City/State/[facility] Co de Phone Number [facility] [address] [place] [address] documented in this encounter Visit Diagnoses Not on filedocumented in this encounter Care Teams Real Estate Broker Relationship Specialty Start Date End Date Osbaldo Hong MD [address] [place] [id number] PCP - General 01/13/19 documented as of this encounter
--- OUTSIDE RECORDS SUMMARY | 2024-05-26 02:47 | XMS_ITS | Encounter Summary ---
Author Organization [facility] Healthcare Address [address] [place] [address] Care Team Providers Care Marketing Sales Representative Name Role Phone Osbaldo Hong MD Primary Care Provider [phone]- [phone] Encounter Details Date Type Department Care Team (Late st Contact Info) Description 10/11/2018 8:05 AM CDT - 10/11/2018 11:27 AM CDT Hospital Encounter [facility] Emergency Department [address] [place] [address] Unknown, [place] [address] [facility] [address] [place] [address] Discharge Disposition: Discharge to home or self care Social History Tobacco Use Types Packs/Day Years Used Date Smoking Tobacco: Never Smokeless Tobacco: Never Alcohol Use Standard Drinks/Week Comments Yes 0 (1 standard drink = 0.6 oz pur e alcohol) Sex and Gender Information Value Date Recorded Sex Assigned at Not on file 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 Gender Identity Not on file Sexual Orientation Not on file documented as of this encounter Last Filed Vital Signs Vital Sign Reading Time Taken Comments Blood Pressure 129/91 10/11/2018 8:11 AM CDT Pulse 90 10/11/2018 8:11 AM CDT Temperature 36.8 ??C (98.3 ??F) 10/11/2018 8:11 AM CD T Respiratory Rate - - Oxygen Saturation 100% 10/11/2018 8:11 AM CDT Inhaled Oxygen Concentration - - Weight 126.6 kg (279 lb 1.7 oz) 10/11/2018 8:11 AM CDT Height 185.4 cm (6' 1 ) 10/11/2018 8:11 AM CDT Body Mass Index 36.82 10/11/2018 8:11 AM CDT documented in this encounter Medications [...] Name Priority Date/Time Associated Diagnosis Comments URINALYSIS AND REFLEX TO MICROSCOPIC AND CULTURE Routine 10/11/2018 9:31 AM CDT DRUGS OF ABUSE SCREEN, URINE WITHOUT CONFIRMATION Routine 10/11/2018 9:31 AM CDT PROTIME-INR Routine 10/11/2018 8:38 AM CDT ETHANOL Routine 10/11/2018 8:38 AM CDT CBC WITH AUTO DIFFERENTIAL Routine 10/11/2018 8:28 AM CDT LIPASE Routine 10/11/2018 8:28 AM CDT COMPREHENSIVE METABOLIC PANEL Routine 10/11/2018 8:28 AM CDT documented in this encounter Results * Drug Screen, Urine without Confirmation (10/11/2018 9:31 AM CDT) [facility] Amphetamines NOT DETECTED [employer] [employer] Comment: This assay uses 500 ng/mL as a cutoff for a positive result. Barbiturates NOT DETECTED [facility] [employer] Comment: This assay uses 200 ng/mL as a cutoff for a positive result. Benzodiazepines NOT DETECTED [facility] Comment: This assay uses 100 ng/mL as a cutoff for a positive result. Cannabinoids DETECTED [facility] Comment: This assay uses 50 ng/mL as a cutoff for a positive result. Cocaine NOT DETECTED [facility] Comment: This assay uses 150 ng/mL as a cutoff for a positive result. Opiates NOT DETECTED [facility] Comment: This assay uses 300 ng/mL as a cutoff for a positive result. Urine methadone NOT DETECTED [facility] Comment: This assay uses 300 ng/mL as a cutoff for a positive result. Urine phencyclidine plus NOT DETECTED [facility] Comment: This assay uses 25 ng/mL as a cutoff for a positive result. Oxycodone NOT DETECTED [facility] Comment: This assay uses 100 ng/mL as a cutoff for a positive result. Urine Creatinine/MAGNOLIA 139.6 mg/dL [facility] Comment: If Creatinine is < 40 mg/dL, recollection is suggested. 10/11/2018 9:31 AM CDT 10/11/2018 9:59 AM CDT Narrative [facility] - 10/11/2018 10:33 AM CDT Collected By ML Resulting Agency Comment ER us Colton Bass MD LAB URINE ORDERABLES Faith l Result [address] [phone] * Urinalysis reflex to microscopic and culture (10/11/2018 9:31 AM CDT) Ur Collection Type CLEAN CATCH [facility] Ur Culture Indicated? C S NOT INDICATED [facility] Urine Color YELLOW YELLOW [facility] Urine Clarity CLEAR CLEAR [facility] Urine Glucose (UA) NORMAL NORMAL mg/dL [facility] Urine Bilirubin NEGATIVE NEGATIVE mg/dl [facility] Urine Ketones NEGATIVE NEGATIVE mg/dL [facility] Ur Specific [place] 1.018 1.005 - 1.025 [facility] Urine Blood NEGATIVE NEGATIVE mg/dl [facility] Urine pH 6.0 5.0 - 8.0 [facility] Urine Protein NEGATIVE NEGATIVE mg/dL [facility] Urine Urobilinogen NORMAL NORMAL mg/dL [facility] Urine Nitrite NEGATIVE NEGATIVE [facility] Ur Leukocyte Esterase NEGATIVE NEGATIVE Luis/ul [facility] Ur Microscopic Review Not Indicated [facility] 10/11/2018 9:31 AM CDT 10/11/2018 9:59 AM CDT Narrative [facility] - 10/11/2018 10:08 AM CDT Indication(s) for ordering ?? Delirium/malaise/lethargy ML Clean catch Resulting Agency Comment ER us Colton Bass MD LAB MICROBIOLOGY - GENERA L ORDERABLES Final Result Performing Organization Address [facility] de Phone Number [address] [phone] * Ethanol (10/11/2018 8:38 AM CDT) Ethyl Alcohol <10 mg/dL [facility] Comment: % = mg/dL x .001 10/11/2018 8:38 AM CDT 10/11/2018 8:43 AM CDT Narrative Resulting Agency Comment ER us Colton Bass MD LAB BLOOD ORDERABLES Faith l Result Performing Organization Address [facility] Co de Phone Number [address] [phone] * Protime-INR (10/11/2018 8:38 AM CDT) PT 14.4 11.8 - 14.5 SECONDS [facility] INR 1.10 [facility] Comment: Recommended Therapeutic range for Oral Anticoagulant Therapy No anti-coagulation therapy ? Normal Range: ?0.8-1.4 Anti-coagulation therapy ? Low intensity therapy ?2.0-3.0 ? High intensity therapy ?? 2.5-3.5 Critical Value ? Greater than or equal to 5.0 Patients should be monitored for serious bleeding. 10/11/2018 8:38 AM CDT 10/11/2018 8:43 AM CDT Narrative Resulting Agency Comment ER Colton Bass MD LAB BLOOD ORDERABLES Faith l Result [address] [phone] * Lipase (10/11/2018 8:28 AM CDT) Lipase 15 13 - 60 U/L [facility] 10/11/2018 8:28 AM CDT 10/11/2018 8:34 AM CDT Narrative Resulting Agency Comment ER Colton Bass MD LAB BLOOD ORDERABLES Faith l Result Performing Organization Address [facility] Co de Phone Number [address] [phone] * (ABNORMAL) Comprehensive metabolic panel (10/11/2018 8:28 AM CDT) Sodium 140 135 - 145 mmol/L [facility] Potassium 3.6 3.3 - 5.1 mmol/L [facility] Chloride 103 96 - 108 mmol/L [facility] Carbon Dioxide 23 22 - 32 mmol/L [facility] Anion Gap 14 7 - 16 [facility] Glucose 111(H) 70 - 100 mg/dL [facility] BUN 15 8 - 25 mg/dL [facility] Creatinine 0.7 0.5 - 1.3 mg/dL [facility] Comment: NOTE: Estimated GFR (Cockroft-Gault) will NOT be calculated unless patient Height and Weight were entered. Also, Kidney Disease Stage (GFR) and Estimated GFR (Cockroft-Gault) will NOT be calculated if Creatinine result is <0.2. Kidney Disease Stage >90 mL/MIN [facility] Comment: NOTE; ??The GFR is an [...] failure or on dialysis Est GFR (Cockcroft-G) 235 ml/MIN [facility] Comment: Estimated GFR(Cockroft-Gault)is used to calculate patient medication dosage Calcium 9.3 8.6 - 10.3 mg/dL [facility] Total Protein 7.2 6.4 - 8.3 g/dL [facility] Albumin 4.3 3.5 - 5.0 g/dL [facility] Globulin 2.9 2.3 - 3.5 gm/dL [facility] Albumin/Globulin Ratio 1.5 1.1 - 1.8 [facility] Total Bilirubin 1.0 0.0 - 1.2 mg/dL [facility] AST 20 0 - 40 U/L [facility] ALT 21 0 - 41 U/L [facility] Alkaline Phosphatase 75 40 - 129 U/L [facility] 10/11/2018 8:28 AM CDT 10/11/2018 8:34 AM CDT Narrative Resulting Agency Comment ER us Colton Bass MD LAB BLOOD ORDERABLES Faith barrett Result [facility] [address] [phone] * (ABNORMAL) CBC with auto differential (10/11/2018 8:28 AM CDT) WBC 8.6 3.8 - 9.9 X10 3/ul [facility] Comment: Results reviewed RBC 5.66 4.30 - 5.80 x10 6/ul [facility] Hemoglobin 15.7 13.0 - 17.5 g/dL [facility] Hct 46.9 38.9 - 50.3 % [facility] MCV 82.9 81.3 - 96.4 fl [facility] MCH 27.7 27.1 - 33.3 pg [facility] MCHC 33.5 32.3 - 35.7 g/dl [facility] RDW 12.8 11.1 - 14.9 % [facility] Plt Count 219 150 - 400 x10 3/ul [facility] MPV 10.0 9.1 - 12.3 fl [facility] Neut % 61.5 % [facility] Immature Gran % 0.6 % [facility] Lymph % 22.8 % [facility] Falls % 12.0 % [facility] Eos % 2.9 % [facility] AUTO BASO % 0.2 % [facility] NEUTROPHIL ABS # 5.3 1.7 - 6.5 x10 3/ul [facility] Immature Gran # 0.1 0.0 - 0.1 x10 3/ul [facility] Absolute Lymphs (auto) 2.0 0.8 - 3.3 x10 3/ul [facility] Absolute Monos (auto) 1.0(H) 0.2 - 0.8 x10 3/ul [facility] Absolute Eos (auto) 0.3 0.0 - 0.5 x10 3/ul [facility] BASOPHIL ABS # 0.0 0.0 - 0.1 x10 3/ul [facility] Nucleat RBC Rel Count 0.0 #/100WBC [facility] NRBC abs 0.00 0.00 - 0.01 x10 3/ul [facility] Absolute Neutrophils 5,300 200 - 8,000 /ul [facility] 10/11/2018 8:28 AM CDT 10/11/2018 8:34 AM CDT Narrative Resulting Agency Comment ER us Colton Bass MD LAB BLOOD ORDERABLES Faith l Result [address] [phone] documented in this encounter Visit Diagnoses Not on filedocumented in this encounter Care Teams Marketing Sales Representative Relationship Specialty Start Date End Date Osbaldo Hong MD PCP - General 07/23/18 01/05/19 documented as of this encounter
--- OUTSIDE RECORDS SUMMARY | 2024-05-26 02:47 | XMS_ITS | Encounter Summary ---
Author Organization [facility] Healthcare Address [address] [place] [address] Care Team Providers Care Silica Filter Operator Name Role Phone Osbaldo Hong MD Primary Care Provider [phone]- [phone] Encounter Details Date Type Department Care Team (Late st Contact Info) Description 02/01/2019 10:36 AM CDT - 02/01/2019 12:23 PM CDT Hospital Encounter [facility] Emergency Department [address] [place] [address] Unknown, [place] [address] [facility] [address] [place] [address] Discharge Disposition: Discharge to home or self care Social History Tobacco Use Types Packs/Day Years Used Date Smoking Tobacco: Never Smokeless Tobacco: Never Alcohol Use Standard Drinks/Week Comments Yes 0 (1 standard drink = 0.6 oz pur e alcohol) Sex and Gender Information Value Date Recorded Sex Assigned at Not on file 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 Gender Identity Not on file Sexual Orientation Not on file documented as of this encounter Last Filed Vital Signs Vital Sign Reading Time Taken Comments Blood Pressure 158/117 02/01/2019 10:41 AM CDT Pulse 87 02/01/2019 10:41 AM CDT Temperature 36.5 ??C (97.7 ??F) 02/01/2019 1 0:41 AM CDT Respiratory Rate - - Oxygen Saturation 97% 02/01/2019 10: 41 AM CDT Inhaled Oxygen Concentration - - Weight 127.2 kg (280 lb 6.9 oz) 019 10:41 AM CDT Height 185.4 cm (6' 1 ) 02/01/2019 10:4 1 AM CDT Body Mass Index 37 02/01/2019 10:41 AM CDT documented in this encounter Medications [...] Diagnosis Comments CBC WITH AUTO DIFFERENTIAL Routine 02/01/2019 10:55 AM CDT LIPASE Routine 02/01/2019 10:55 AM CDT COMPREHENSIVE METABOLIC PANEL Routine 02/01/2019 10:55 AM CDT documented in this encounter Results * Lipase (02/01/2019 10:55 AM CDT) Lipase 15 13 - 60 U/L [facility] 02/01/2019 10:5 5 AM CDT 02/01/2019 11:05 AM CDT Narrative Resulting Agency Comment ER us Floresita Ortega NP LAB BLOOD ORDERABLES Faith barrett Result [address] [phone] * (ABNORMAL) Comprehensive metabolic panel (02/01/2019 10:55 AM CDT) Sodium 141 135 - 145 mmol/L [facility] Potassium 3.7 3.3 - 5.1 mmol/L [facility] Chloride 104 96 - 108 mmol/L [facility] Carbon Dioxide 22 22 - 32 mmol/L [facility] Anion Gap 15 7 - 16 [facility] Glucose 126(H) 70 - 100 mg/dL [facility] BUN 12 8 - 25 mg/dL [facility] Creatinine 0.7 0.5 - 1.3 mg/dL [facility] Comment: NOTE: Estimated GFR (Cockroft-Gault) will NOT be calculated unless patient Height and Weight were entered. Also, Kidney Disease Stage (GFR) and Estimated GFR (Cockroft-Gault) will NOT be calculated if Creatinine result is <0.2. Kidney Disease Stage >90 mL/MIN [facility] Comment: NOTE; ??The GFR is an [...] on dialysis Est GFR (Cockcroft-G) 235 ml/MIN [facility] Comment: Estimated GFR(Cockroft-Gault)is used to calculate patient medication dosage Calcium 9.6 8.6 - 10.3 mg/dL [facility] Total Protein 7.7 6.4 - 8.3 g/dL [facility] Albumin 4.6 3.5 - 5.0 g/dL [facility] Globulin 3.1 2.3 - 3.5 gm/dL [facility] Albumin/Globulin Ratio 1.5 1.1 - 1.8 [facility] Total Bilirubin 0.8 0.0 - 1.2 mg/dL [facility] AST 20 0 - 40 U/L [facility] ALT 26 0 - 41 U/L [facility] Alkaline Phosphatase 76 40 - 129 U/L [facility] 02/01/2019 10:5 5 AM CDT 02/01/2019 11:05 AM CDT Narrative Resulting Agency Comment ER Floresita Ortega NP LAB BLOOD ORDERABLES Faith barrett Result [address] [phone] * (ABNORMAL) CBC with auto differential (02/01/2019 10:55 AM CDT) WBC 11.0(H) 3.8 - 9.9 X10 3/ul [facility] RBC 5.56 4.30 - 5.80 x10 6/ul [facility] Hemoglobin 15.7 13.0 - 17.5 g/dL [facility] Hct 45.6 38.9 - 50.3 % [facility] MCV 82.0 81.3 - 96.4 fl [facility] MCH 28.2 27.1 - 33.3 pg [facility] MCHC 34.4 32.3 - 35.7 g/dl [facility] RDW 12.9 11.1 - 14.9 % [facility] Plt Count 238 150 - 400 x10 3/ul [facility] MPV 10.6 9.1 - 12.3 fl [facility] Neut % 83.3 % [facility] [employer] AST - [facility] Immature Gran % 0.5 % [facility] Lymph % 12.4 % [facility] E AST - [facility] [place] % 3.0 % [facility] E AST [facility] Eos % 0.5 % [facility] AUTO BASO % 0.3 % [facility] NEUTROPHIL ABS # 9.2(H) 1.7 - 6.5 x10 3/ul [facility] Immature Gran # 0.1 0.0 - 0.1 x10 3/ul [facility] Absolute Lymphs (auto) 1.4 0.8 - 3.3 x10 3/ul [facility] Absolute Monos (auto) 0.3 0.2 - 0.8 x10 3/ul [facility] Absolute Eos (auto) 0.1 0.0 - 0.5 x10 3/ul [facility] BASOPHIL ABS # 0.0 0.0 - 0.1 x10 3/ul [facility] Nucleat RBC Rel Count 0.0 #/100WBC [facility] NRBC abs 0.00 0.00 - 0.01 x10 3/ul [facility] Absolute Neutrophils 9,200(H) 200 - 8,000 /ul [facility] 02/01/2019 10:5 5 AM CDT 02/01/2019 11:05 AM CDT Narrative Resulting Agency Comment ER Floresita Ortega [employer] LAB BLOOD ORDERABLES Faith barrett Result [facility] [address] [place] [address] documented in this encounter Visit Diagnoses Not on filedocumented in this encounter Care Teams Silica Filter Operator Relationship Specialty Start Date End Date Osbaldo Hong MD [address] [place] [address] PCP - General 01/13/19 documented as of this encounter
--- OUTSIDE RECORDS SUMMARY | 2024-05-26 02:47 | XMS_ITS | Encounter Summary ---
Author Organization [facility] Healthcare Address [address] [place] [address] Care Team Providers Care Ec Teacher Name Role Phone Osbaldo Hong MD Primary Care Provider +1- [phone] Encounter Details Date Type Department Care Team (Late st Contact Info) Description 01/13/2019 11:14 AM CDT - 01/13/2019 2:12 PM CDT Hospital Encounter [facility] Emergency Department [address] [place] [address] Unknown, Notinfizabel Hdz, Amirt Preston, CEMENT STORAGE WORKER [address] [facility] [place] [address] Discharge Disposition: Discharge to home or self care Social History Tobacco Use Types Packs/Day Years Used Date Smoking Tobacco: Never Smokeless Tobacco: Never Alcohol Use Standard Drinks/Week Comments Yes 0 (1 standard drink = 0.6 oz pur e alcohol) Sex and Gender Information Value Date Recorded Sex Assigned at Not on file 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[employer] Gender Identity Not on file Sexual Orientation Not on file documented as of this encounter Last Filed Vital Signs Vital Sign Reading Time Taken Comments Blood Pressure 159/78 01/13/2019 11:28 AM CDT Pulse 82 01/13/2019 11:28 AM CDT Temperature 36.7 ??C (98 ??F) 01/13/2019 11: 28 AM CDT Respiratory Rate - - Oxygen Saturation 100% 01/13/2019 11: 28 AM CDT Inhaled Oxygen Concentration - - Weight 125.4 kg (276 lb 7.4 oz) 019 11:28 AM CDT Height 185.4 cm (6' 1 ) 01/13/2019 11:2 8 AM CDT Body Mass Index 36.47 01/13/2019 11:28 AM CDT documented in this encounter Medications [...] Diagnosis Comments CBC WITH AUTO DIFFERENTIAL Routine 01/13/2019 11:52 AM CDT LIPASE Routine 01/13/2019 11:51 AM CDT COMPREHENSIVE METABOLIC PANEL Routine 01/13/2019 11:51 AM CDT documented in this encounter Results * (ABNORMAL) CBC with auto differential (01/13/2019 11:52 AM CDT) WBC 13.5(H) 3.8 - 9.9 X10 3/ul [facility] RBC 5.97(H) 4.30 - 5.80 x10 6/ul [facility] Hemoglobin 16.9 13.0 - 17.5 g/dL [facility] Hct 49.1 38.9 - 50.3 % [facility] MCV 82.2 81.3 - 96.4 fl [facility] MCH 28.3 27.1 - 33.3 pg [facility] MCHC 34.4 32.3 - 35.7 g/dl [facility] RDW 12.7 11.1 - 14.9 % [facility] Plt Count 279 150 - 400 x10 3/ul [facility] MPV 10.8 9.1 - 12.3 fl [facility] Neut % 77.6 % [facility] Immature Gran % 0.4 % [facility] Lymph % 16.7 % [facility] AST [facility] [place] % 4.3 % [facility] Eos % 0.7 % [facility] AUTO BASO % 0.3 % [facility] NEUTROPHIL ABS # 10.5(H) 1.7 - 6.5 x10 3/ul [facility] Immature Gran # 0.1 0.0 - 0.1 x10 3/ul [facility] Absolute Lymphs (auto) 2.3 0.8 - 3.3 x10 3/ul [facility] Absolute Monos (auto) 0.6 0.2 - 0.8 x10 3/ul [facility] Absolute Eos (auto) 0.1 0.0 - 0.5 x10 3/ul [facility] BASOPHIL ABS # 0.0 0.0 - 0.1 x10 3/ul [facility] Nucleat RBC Rel Count 0.0 #/100WBC [facility] NRBC abs 0.00 0.00 - 0.01 x10 3/ul [facility] Absolute Neutrophils 10,500(H) 200 - 8,000 /ul [facility] 01/13/2019 11:5 2 AM CDT 01/13/2019 12:00 PM CDT Narrative Resulting Agency Comment ER us Amrit Hdz NP LAB BLOOD ORDERABLES Faith l Result [address] [phone] * Lipase (01/13/2019 11:51 AM CDT) Lipase 15 13 - 60 U/L [facility] 01/13/2019 11:5 1 AM CDT 01/13/2019 12:00 PM CDT Narrative Resulting Agency Comment ER us Amrit Preston Cinthiapedro pablo CEMENT STORAGE WORKER LAB BLOOD ORDERABLES Faith barrett Result [facility] [address] [place] [address], [facility] [phone] * (ABNORMAL) Comprehensive metabolic panel (01/13/2019 11:51 AM CDT) Pathologist [facility] Sodium 142 135 - 145 mmol/L [facility] Potassium 4.2 3.3 - 5.1 mmol/L [facility] Chloride 102 96 - 108 mmol/L [facility] Carbon Dioxide 22 22 - 32 mmol/L [facility] Anion Gap 18(H) 7 - 16 [facility] Glucose 122(H) 70 - 100 mg/dL [facility] BUN 15 8 - 25 mg/dL [facility] Creatinine 0.8 0.5 - 1.3 mg/dL [facility] Comment: NOTE: Estimated GFR (Cockroft-Gault) will NOT be calculated unless patient Height and Weight were entered. Also, Kidney Disease Stage (GFR) and Estimated GFR (Cockroft-Gault) will NOT be calculated if Creatinine result is <0.2. Kidney Disease Stage >90 mL/MIN [facility] Comment: NOTE; ??The GFR is an [...] failure or on dialysis Est GFR (Cockcroft-G) 204 ml/MIN [facility] Comment: Estimated GFR(Cockroft-Gault)is used to calculate patient medication dosage Calcium 10.5(H) 8.6 - 10.3 mg/dL [facility] Total Protein 8.1 6.4 - 8.3 g/dL [facility] Albumin 4.9 3.5 - 5.0 g/dL [facility] Globulin 3.2 2.3 - 3.5 gm/dL [facility] Albumin/Globulin Ratio 1.5 1.1 - 1.8 [facility] Total Bilirubin 1.1 0.0 - 1.2 mg/dL [facility] AST 21 0 - 40 U/L [facility] ALT 25 0 - 41 U/L [facility] Alkaline Phosphatase 83 40 - 129 U/L [facility] 01/13/2019 11:5 1 AM CDT 01/13/2019 12:00 PM CDT Narrative Resulting Agency Comment ER Amrit Hdz CEMENT STORAGE WORKER LAB BLOOD ORDERABLES Faith barrett Result Performing Organization Address City/State/[facility] Co de Phone Number [facility] [address] [phone] documented in this encounter Visit Diagnoses Not on filedocumented in this encounter Care Teams Ec Teacher Relationship Specialty Start Date End Date Osbaldo Hong MD [address] [place] [address] PCP - General 01/13/19 documented as of this encounter
--- OUTSIDE RECORDS SUMMARY | 2024-05-26 02:47 | XMS_ITS | Encounter Summary ---
Author Organization [facility] Healthcare Address [address] [place] [address] Care Team Providers Care Community Service Technician Name Role Phone Osbaldo Hong MD Primary Care Provider [phone]- [phone] Encounter Details Date Type Department Care Team (Late st Contact Info) Description 12/20/2018 11:48 AM CDT - 12/20/2018 4:34 PM CDT Hospital Encounter [facility] Emergency Department [address] [place] [address] Unknown, [place] [address] [facility] [address] [place] [address] Discharge Disposition: Discharge to home or self care Social History Tobacco Use Types Packs/Day Years Used Date Smoking Tobacco: Never Smokeless Tobacco: Never Alcohol Use Standard Drinks/Week Comments Yes 0 (1 standard drink = 0.6 oz pur e alcohol) Sex and Gender Information Value Date Recorded Sex Assigned at Not on file 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 Gender Identity Not on file Sexual Orientation Not on file documented as of this encounter Last Filed Vital Signs Vital Sign Reading Time Taken Comments Blood Pressure 133/82 12/20/2018 12:00 PM CDT Pulse 91 12/20/2018 12:00 PM CDT Temperature 36.6 ??C (97.9 ??F) 12/20/2018 1 2:00 PM CDT Respiratory Rate - - Oxygen Saturation 100% 12/20/2018 12: 00 PM CDT Inhaled Oxygen Concentration - - Weight 123.2 kg (271 lb 9.8 oz) 019 12:00 PM CDT Height 185.4 cm (6' 1 ) 12/20/2018 12:0 0 PM CDT Body Mass Index 35.83 12/20/2018 12:00 PM CDT documented in this encounter Medications [...] AND REFLEX TO MICROSCOPIC AND CULTURE Routine 12/20/2018 3:00 PM CDT CBC WITH AUTO DIFFERENTIAL Routine 12/20/2018 12:09 PM CDT LIPASE Routine 12/20/2018 12:09 PM CDT COMPREHENSIVE METABOLIC PANEL Routine 12/20/2018 12:09 PM CDT documented in this encounter Results * (ABNORMAL) Urinalysis reflex to microscopic and culture (12/20/2018 3:00 PM CDT) Ur Collection Type CLEAN CATCH [facility] Ur Culture Indicated? C S NOT INDICATED [facility] Urine Color YELLOW YELLOW [facility] Urine Clarity CLEAR CLEAR [facility] Urine Glucose (UA) NORMAL NORMAL mg/dL [facility] Urine Bilirubin NEGATIVE NEGATIVE mg/dl [facility] Urine Ketones 20 NEGATIVE mg/dL [facility] Ur Specific [place] 1.013 1.005 - 1.025 [facility] Urine Blood NEGATIVE NEGATIVE mg/dl [facility] Urine pH 9.0(H) 5.0 - 8.0 [facility] Urine Protein NEGATIVE NEGATIVE mg/dL [facility] Urine Urobilinogen NORMAL NORMAL mg/dL [facility] Urine Nitrite NEGATIVE NEGATIVE [facility] Ur Leukocyte Esterase NEGATIVE NEGATIVE Luis/ul [facility] Ur Microscopic Review Not Indicated [facility] Urine RBC <1 0 - 2 /HPF [facility] Urine WBC 1 0 - 2 /HPF [facility] Urine Mucus RARE /LPF [facility] 12/20/2018 3:00 PM CDT 12/20/2018 3:21 PM CDT Narrative [facility] - 12/20/2018 3:42 PM CDT Indication(s) for ordering ?? Other - enter in comments rlp abdominal pain Clean catch Resulting Agency Comment ER Elli DAVIS LAB MICROBIOLOGY - GENER AL ORDERABLES Final Result Performing Organization Address [facility]/ZIP Co de Phone Number [address] [phone] * Lipase (12/20/2018 12:09 PM CDT) Pathologist [facility] Lipase 21 13 - 60 U/L [facility] 12/20/2018 12:0 9 PM CDT 12/20/2018 12:12 PM CDT Narrative Resulting Agency Comment ER Elli DAVIS LAB BLOOD ORDERABLES Fin al Result Performing Organization Address City/[facility]/ZIP Co de Phone Number [address] [phone] * (ABNORMAL) Comprehensive metabolic panel (12/20/2018 12:09 PM CDT) Sodium 142 135 - 145 mmol/L [facility] Potassium 3.9 3.3 - 5.1 mmol/L [facility] Chloride 103 96 - 108 mmol/L [facility] Carbon Dioxide 24 22 - 32 mmol/L [facility] Anion Gap 15 7 - 16 [facility] Glucose 126(H) 70 - 100 mg/dL [facility] BUN 13 8 - 25 mg/dL [facility] Creatinine 0.7 0.5 - 1.3 mg/dL [facility] Comment: NOTE: Estimated GFR (Cockroft-Gault) will NOT be calculated unless patient Height and Weight were entered. Also, Kidney Disease Stage (GFR) and Estimated GFR (Cockroft-Gault) will NOT be calculated if Creatinine result is <0.2. Kidney Disease Stage >90 mL/MIN [facility] Comment: NOTE; ??The GFR is an estimated [...] on dialysis Est GFR (Cockcroft-G) 231 ml/MIN [facility] Comment: Estimated GFR(Cockroft-Gault)is used to calculate patient medication dosage Calcium 10.2 8.6 - 10.3 mg/dL [facility] Total Protein 8.1 6.4 - 8.3 g/dL [facility] Albumin 4.9 3.5 - 5.0 g/dL [facility] Globulin 3.2 2.3 - 3.5 gm/dL [facility] Albumin/Globulin Ratio 1.5 1.1 - 1.8 [facility] Total Bilirubin 1.2 0.0 - 1.2 mg/dL [facility] AST 22 0 - 40 U/L [facility] ALT 28 0 - 41 U/L [facility] Alkaline Phosphatase 90 40 - 129 U/L [facility] 12/20/2018 12:0 9 PM CDT 12/20/2018 12:12 PM CDT Narrative Resulting Agency Comment ER Elli DAVIS LAB BLOOD ORDERABLES [facility] [place] [address], [facility] [phone] * (ABNORMAL) CBC with auto differential (12/20/2018 12:09 PM CDT) WBC 10.3(H) 3.8 - 9.9 X10 3/ul [facility] RBC 5.83(H) 4.30 - 5.80 x10 6/ul [facility] Hemoglobin 16.4 13.0 - 17.5 g/dL [facility] Hct 47.5 38.9 - 50.3 % [facility] MCV 81.5 81.3 - 96.4 fl [facility] MCH 28.1 27.1 - 33.3 pg [facility] MCHC 34.5 32.3 - 35.7 g/dl [facility] RDW 12.5 11.1 - 14.9 % [facility] Plt Count 229 150 - 400 x10 3/ul [facility] MPV 10.3 9.1 - 12.3 fl [facility] Neut % 77.2 % [facility] E AST - [facility] Immature Gran % 0.4 % [facility] Lymph % 15.7 % [facility] E AST - [facility] Anderson % 5.2 % [facility] E AST - [facility] Eos % 1.1 % [facility] E AST - Deep DriverTECH AUTO BASO % 0.4 % [facility] NEUTROPHIL ABS # 7.9(H) 1.7 - 6.5 x10 3/ul [facility] Immature Gran # 0.0 0.0 - 0.1 x10 3/ul [facility] Absolute Lymphs (auto) 1.6 0.8 - 3.3 x10 3/ul [facility] Absolute Monos (auto) 0.5 0.2 - 0.8 x10 3/ul [facility] Absolute Eos (auto) 0.1 0.0 - 0.5 x10 3/ul [facility] BASOPHIL ABS # 0.0 0.0 - 0.1 x10 3/ul [facility] Nucleat RBC Rel Count 0.0 #/100WBC [facility] NRBC abs 0.00 0.00 - 0.01 x10 3/ul [facility] Absolute Neutrophils 7,900 200 - 8,000 /ul [facility] 12/20/2018 12:0 9 PM CDT 12/20/2018 12:12 PM CDT Narrative Resulting Agency Comment ER Elli DAVIS LAB BLOOD ORDERABLES Fin al Result [address] [phone] documented in this encounter Visit Diagnoses Not on filedocumented in this encounter Care Teams Community Service Technician Relationship Specialty Start Date End Date Osbaldo Hong MD PCP - General 07/23/18 01/05/19 documented as of this encounter
--- OUTSIDE RECORDS SUMMARY | 2024-05-26 02:47 | XMS_ITS | Encounter Summary ---
Author Organization [facility] Healthcare Address [address] [place] [address] Care Team Providers Care Wiring Mechanic Name Role Phone Osbaldo Hong MD Primary Care Provider +1- [phone] Reason for Visit * Reason Comments Nausea Vomiting Diarrhea Flu Symptoms Encounter Details Date Type Department Care Team (Late st Contact Info) Description 09/02/2018 4:41 PM CDT - 09/02/2018 10:16 PM CDT Emergency [facility] Emergency Department [address] [place] [phone] Discharge Disposition: Left without being seen Social History Tobacco Use Types Packs/Day Years Used Date Smoking Tobacco: Never Smokeless Tobacco: Never Alcohol Use Standard Drinks/Week Comments Yes 0 (1 standard drink = 0.6 oz pur e alcohol) Sex and Gender Information Value Date Recorded Sex Assigned at Not on file 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 Gender Identity Not on file Sexual Orientation Not on file documented as of this encounter Last Filed Vital Signs Vital Sign Reading Time Taken Comments Blood Pressure 122/75 09/02/2018 8:32 PM CDT Pulse 80 09/02/2018 8:32 PM CDT Temperature 36.5 ??C (97.7 ??F) 09/02/2018 8:32 PM CD T Respiratory Rate 18 09/02/2018 8:32 PM CDT Oxygen Saturation 97% 09/02/2018 8:32 PM CDT Inhaled Oxygen Concentration - - Weight 95.3 kg (210 lb) 09/02/2018 4:55 PM CDT Height 180.3 cm (5' 11 ) 09/02/2018 4:55 PM CDT Body Mass Index 29.29 09/02/2018 4:55 PM CDT documented in this encounter Medications [...] documented in this encounter ED Notes * Petrona Howe RN - 09/02/2018 4:58 PM CDT Pt states he began not feeling well yesterday so used marijuana in an attempt to feel better. Symptoms progressed to nausea, vomiting, and severe abdominal pain. Pt has been seen multiple times previously for similar symptoms induced by marijuana. documented in this encounter Plan of Treatment Not on file documented as of this encounter Procedures Procedure Name Priority Date/Time Associated Diagnosis Comments URINALYSIS AND REFLEX TO MICROSCOPIC AND CULTURE STAT 09/02/2018 7:28 PM CDT URINALYSIS, MICROSCOPIC ONLY STAT 09/02/2018 7:28 PM CDT DIFFERENTIAL AUTO STAT 09/02/2018 5:4 1 PM CDT CBC WITH AUTO DIFFERENTIAL STAT 09/02/2018 5:41 PM CDT LIPASE STAT 09/02/2018 5:41 PM CDT HEPATIC FUNCTION PANEL STAT 09/02/2018 5:41 PM CDT BASIC METABOLIC PANEL STAT 09/02/2018 5:41 PM CDT documented in this encounter Results * (ABNORMAL) Urinalysis, microscopic only (09/02/2018 7:28 PM CDT) WBC, ur 0-5 0 - 5 /HPF [facility] RBC, ur 0-2 0 - 2 /HPF [facility] Epithelial cells, squamous, ur 1-5 0 - 5 /HPF [facility] Mucous, ur Present(A) [facility] Urine 09/02/2018 7:28 PM CDT 09/02/2018 7:39 PM CDT Narrative [facility] - 09/02/2018 7:58 PM CDT Breanna Landin MD LAB URINE ORDERABLES Final Result [facility] [place] [address] * (ABNORMAL) Urinalysis reflex to microscopic and culture Urine (09/02/2018 7:28 PM CDT) Color, ur Yellow Yellow [facility] Clarity, ur Cloudy(A) Clear [facility] Specific gravity, ur 1.026(H) 1.010 - 1.025 [facility] pH, urine 5 [facility] Protein, ur ql Negative Negative [facility] Glucose, ur ql Negative Negative [facility] Ketones, ur 2+(A) Negative [facility] Comment:Verified Bilirubin, ur Negative Negative [facility] Blood, ur Negative Negative [facility] Comment:Ascorbic acid identi fied in urine; possible false negative blood result. A microscopic exam will be added to identify RBCs. Urobilinogen, ur <2.0 <2.0 mg/dL [facility] Nitrite, ur Negative Negative [facility] Leukocyte esterase, ur Negative Negative [facility] Urine 09/02/2018 7:28 PM CDT 09/02/2018 7:39 PM CDT Narrative [facility] - 09/02/2018 8:11 PM CDT THE [facility] COLLECTION LOCATION IS Urine pH is affected by diet, medications, systemic acid-base disturbances, and renal tubular function. ??pH may affect urinary stone formation. ??For example, urine pH below 6.0 may help reduce the tendency for calcium phosphate stones and pH greater than 6.0 may reduce the tendency for uric acid stone formation. Source: [facility] [employer]. Last revised 06-06-2017 Breanna Landin MD LAB MICROBIOLOGY - GENERAL ORDERABLES Final Result [facility] Department [place] [address] * (ABNORMAL) Differential, auto (09/02/2018 5:41 PM CDT) Neutrophil abs 11.8(H) 1.7 - 6.5 K/cumm [facility] Imm gran abs 0.1 0.0 - 0.1 K/cumm [facility] Lymphocyte abs 1.0 0.8 - 3.3 K/cumm [facility] Monocyte abs 0.3 0.2 - 0.8 K/cumm [facility] Eosinophil abs 0.0 0.0 - 0.5 K/cumm [facility] Basophil abs 0.0 0.0 - 0.1 K/cumm [facility] Neutrophil pct 88.9 % [facility] Comment: Interpretive Data Percent cell count reference ranges are not reported, since discordance with absolute values may lead to misinterpretation of CBC data. Current Interpretive Data was last revised on 2017. Imm gran pct 0.7 % [facility] Comment: Interpretive Data Percent cell count reference ranges are not reported, since discordance with absolute values may lead to misinterpretation of CBC data. Current Interpretive Data was last revised on 2017. Lymphocyte pct 7.9 % [facility] Comment: Interpretive Data Percent cell count reference ranges are not reported, since discordance with absolute values may lead to misinterpretation of CBC data. Current Interpretive Data was last revised on 2017. Monocyte pct 2.1 % [facility] Comment: Interpretive Data Percent cell count reference ranges are not reported, since discordance with absolute values may lead to misinterpretation of CBC data. Current Interpretive Data was last revised on 2017. Eosinophil pct 0.1 % [facility] Comment: Interpretive Data Percent cell count reference ranges are not reported, since discordance with absolute values may lead to misinterpretation of CBC data. Current Interpretive Data was last revised on 2017. Basophil pct 0.3 % [facility] Comment: Interpretive Data Percent cell count reference ranges are not reported, since discordance with absolute values may lead to misinterpretation of CBC data. Current Interpretive Data was last revised on 2017. Blood specimen (specimen) 09/02/2018 5:41 PM CDT 09/02/2018 5:51 PM CDT Narrative [facility] - 09/02/2018 6:01 PM CDT Breanna Landin MD LAB BLOOD ORDERABLES Final Result Performing Organization Address [facility] Co de Phone Number [facility] [place] [place] [address] * Lipase (09/02/2018 5:41 PM CDT) Pathologist [facility] Lipase 14 10 - 99 Units/L [facility] Blood specimen (specimen) 09/02/2018 5:41 PM CDT 09/02/2018 5:53 PM CDT Narrative [facility] - 09/02/2018 6:22 PM CDT THE COLLECTION LOCATION IS Breanna Landin MD LAB BLOOD ORDERABLES Final Result [facility] [place] [address] * Hepatic function panel (09/02/2018 5:41 PM CDT) Bilirubin, total 0.7 0.1 - 1.2 mg/dL [facility] Bilirubin, direct <0.2 0.1 - 0.3 mg/dL [facility] Protein, pl 7.7 6.5 - 8.5 g/dL [facility] Albumin 4.7 3.5 - 5.0 g/dL [facility] Alk phos 80 40 - 130 Units/L [facility] ALT 37 7 - 55 Units/L [facility] AST 28 10 - 50 Units/L [facility] Blood specimen (specimen) 09/02/2018 5:41 PM CDT 09/02/2018 5:53 PM CDT Narrative [facility] - 09/02/2018 6:30 PM CDT THE [facility] COLLECTION LOCATION IS Breanna Landin MD LAB BLOOD ORDERABLES Final Result [facility] Department [place] [address] * (ABNORMAL) CBC with auto differential (09/02/2018 5:41 PM CDT) WBC 13.2(H) 3.8 - 9.9 K/cumm [facility] Hgb 15.7 13.0 - 17.5 g/dL [facility] Hct 47.8 38.9 - 50.3 % [facility] Plt 234 150 - 400 K/cumm [facility] MPV 10.9 9.1 - 12.3 fL [facility] RBC 5.55 4.30 - 5.80 M/cumm [facility] MCV 86.1 81.3 - 96.4 fL [facility] MCH 28.3 27.1 - 33.3 pg [facility] MCHC 32.8 32.3 - 35.7 g/dL [facility] RDW CV 13.2 11.1 - 14.9 % [facility] RDW SD 40.7 35.7 - 48.1 fL [facility] NRBC abs 0.02(H) 0.00 - 0.01 K/cumm [facility] Blood specimen (specimen) 09/02/2018 5:41 PM CDT 09/02/2018 5:51 PM CDT Narrative [facility] - 09/02/2018 6:01 PM CDT THE [facility] COLLECTION LOCATION IS Breanna Landin MD LAB BLOOD ORDERABLES Final Result Performing Organization Address City/[facility]/ZIP Co de Phone Number [facility] Department [place] [address] * (ABNORMAL) Basic metabolic panel (09/02/2018 5:41 PM CDT) [facility] Sodium 144 135 - 145 mmol/L [facility] Potassium, pl 4.1 3.3 - 4.9 mmol/L [facility] Chloride 108 97 - 110 mmol/L [facility] CO2 23 22 - 32 mmol/L [facility] Anion gap 13 2 - 15 mmol/L [facility] BUN 14 8 - 25 mg/dL [facility] Creatinine 0.66(L) 0.80 - 1.30 mg/dL [facility] Glucose 120 70 - 199 mg/dL [facility] Comment: Interpretive Data Fasting glucose >/= 126 [...] interpretive data was last revised 2017. Calcium 9.7 8.5 - 10.3 mg/dL [facility] Blood specimen (specimen) 09/02/2018 5:41 PM CDT 09/02/2018 5:53 PM CDT Narrative [facility] - 09/02/2018 6:22 PM CDT THE [facility] COLLECTION LOCATION IS us Breanna Landin MD LAB BLOOD ORDERABLES Final Result Performing Organization Address [facility]/ZIP Co de Phone Number [facility] Department [place] [address] documented in this encounter Visit Diagnoses Not on filedocumented in this encounter Administered Medications Inactive Administered Medications - up to 3 most recent administrations Medication Order MAR Action Action Date Dose Rate Site haloperidol (HALDOL) injection 5 mg 5 mg, intravenous, Administer over 5 Minutes, Once, On Sat09/02/18 at 1720, For 1 dose, Indications: marijuana-induced nausea/vomitingIndications: marijuana-induced nausea/vomiting Given 09/02/2018 5:45 PM CDT 5 mg sodium chloride 0.9% bolus 1,000 mL 1,000 mL, intravenous, at 1,000 mL/hr, Administer over 1 Hours, Once, On Sat09/02/18 at 1720, For 1 dose New Bag 09/02/2018 5:45 PM CDT 1,000 mL 1000 mL/hr documented in this encounter Historical Medications * This list may reflect changes made after this encounter. amitriptyline (ELAVIL) 10 mg tablet 08/26/2018 4 [...] 1 MONTH (30D) NEEDED 0 07/30/2018 4 added in this encounter Active and Recently Administered Medications Times are shown in CDT. Scheduled Medication Order 08/31/2018 09/01/2018 09/02/2018 haloperidol (HALDOL) injection 5 mg (COMPLETED) 5 mg, intravenous, Administer over 5 Minutes, Once, On Sat09/02/18 at 1720, For 1 dose, Indications: marijuana-induced nausea/vomiting 1745 (Given - Provid er: Clarke Patino RN - Comment: stop time 1750) sodium chloride 0.9% bolus 1,000 mL (COMPLETED) 1,000 mL, intravenous, at 1,000 mL/hr, Administer over 1 Hours, Once, On Sat09/02/18 at 1720, For 1 dose 1745 (New Bag - Prov ider: Clarke Patino RN)2214 (Stopped - Provider: Clarke Patino RN) documented in this encounter Orders IV Count Last Ordered Date First Orde red Date SALINE LOCK IV 1 09/02/2018 documented in this encounter Care Teams Wiring Mechanic Relationship Specialty Start Date End Date Obsaldo Hong MD PCP - General 07/23/18 01/05/19 documented as of this encounter
--- OUTSIDE RECORDS SUMMARY | 2024-05-26 02:47 | XMS_ITS | Encounter Summary ---
Author Organization [facility] Healthcare Address [address] [place] [address] Care Team Providers Care Project Production Engineer Name Role Phone Osbaldo Hong MD Primary Care Provider +1- [phone] Encounter Details Date Type Department Care Team (Late st Contact Info) Description 03/21/2019 4:31 PM CDT - 03/21/2019 5:51 PM CDT Hospital Encounter [facility] Emergency Department [address] [place] [address] Unknown, [place] [address] [facility] [address] [place] [address] Discharge Disposition: Discharge to home or self care Social History Tobacco Use Types Packs/Day Years Used Date Smoking Tobacco: Never Smokeless Tobacco: Never Alcohol Use Standard Drinks/Week Comments Yes 0 (1 standard drink = 0.6 oz pur e alcohol) Sex and Gender Information Value Date Recorded Sex Assigned at Not on file 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 Gender Identity Not on file Sexual Orientation Not on file documented as of this encounter Last Filed Vital Signs Vital Sign Reading Time Taken Comments Blood Pressure 132/88 03/21/2019 4:35 PM CDT Pulse 92 03/21/2019 4:35 PM CDT Temperature 36.7 ??C (98.1 ??F) 03/21/2019 4:35 PM CD T Respiratory Rate - - Oxygen Saturation 99% 03/21/2019 4:35 PM CDT Inhaled Oxygen Concentration - - Weight 127 kg (279 lb 15.8 oz) 03/21/2019 4:35 P M CDT Height 185.4 cm (6' 1 ) 03/21/2019 4:35 PM CDT Body Mass Index 36.94 03/21/2019 4:35 PM CDT documented in this encounter Medications [...] on filedocumented in this encounter Care Teams Project Production Engineer Relationship Specialty Start Date End Date Osbaldo Hong MD [address] [place] [address] PCP - General 01/13/19 documented as of this encounter
--- OUTSIDE RECORDS SUMMARY | 2024-05-26 02:47 | XMS_ITS | Encounter Summary ---
Author Organization [facility] Healthcare Address [address] [place] [address] Care Team Providers Care Casing Grader Name Role Phone Osbaldo Hong MD Primary Care Provider [phone]- [phone] Encounter Details Date Type Department Care Team (Latest Contact Info) Description 08/03/2018 1:00 PM CDT - 08/03/2018 4:15 PM CDT Hospital Encounter [facility] Emergency Department [address] [place] [address] [place] [address] [facility] [address] [place] [address] Discharge Disposition: Discharge to home or self care Social History Tobacco Use Types Packs/Day Years Used Date Smoking Tobacco: Never Assessed Sex and Gender Information Value Date Recorded Sex Assigned at Not on file Legal Sex Male 6:55 PM [employer] Gender Identity Not on file Sexual Orientation Not on file documented as of this encounter Last Filed Vital Signs Vital Sign Reading Time Taken Comments Blood Pressure 125/86 08/03/2018 1:28 PM CDT Pulse 60 08/03/2018 1:28 PM CDT Temperature 37 ??C (98.6 ??F) 08/03/2018 1:28 PM CDT Respiratory Rate - - Oxygen Saturation 99% 08/03/2018 1:28 PM CDT Inhaled Oxygen Concentration - - Weight 117.2 kg (258 lb 6.1 oz) 08/03/2018 1:28 PM CDT Height 185.4 cm (6' 1 ) 08/03/2018 1:28 PM CDT Body Mass Index 34.09 08/03/2018 1:28 PM CDT documented in this encounter Medications [...] Diagnosis Comments CBC WITH AUTO DIFFERENTIAL Routine 08/03/2018 2:01 PM CDT LIPASE Routine 08/03/2018 2:01 PM CDT COMPREHENSIVE METABOLIC PANEL Routine 08/03/2018 2:01 PM CDT URINALYSIS Routine 08/03/2018 1:50 PM CDT documented in this encounter Results * (ABNORMAL) Lipase (08/03/2018 2:01 PM CDT) Lipase 12(L) 13 - 60 U/L 08/03/2018 2:34 PM CDT [facility] HISTORICAL RESULTS 08/03/2018 2:01 PM CDT 08/03/2018 2:11 PM CDT Floresita Ortega VEHICLE REFINISHER LAB BLOOD ORDERABLES Faith l Result [facility] HISTORICAL RESULTS * (ABNORMAL) Comprehensive metabolic panel (08/03/2018 2:01 PM CDT) Sodium 139 135 - 145 mmol/L 08/03/2018 2:34 PM CDT [facility] HISTORICAL RESULTS Potassium 3.4 3.3 - 5.1 mmol/L 08/03/2018 2:34 PM CDT [facility] HISTORICAL RESULTS Chloride 95(L) 96 - 108 mmol/L Carbon Dioxide 26 22 - 32 mmol/L Anion Gap 18(H) 7 - 16 Glucose 99 70 - 100 mg/dL BUN 14 8 - 25 mg/dL Creatinine 0.6 0.5 - 1.3 mg/dL Comment: Above result is affected by increased bilirubin. NOTE: Estimated GFR (Cockroft-Gault) will NOT be calculated unless patient Height and Weight were entered. Also, Kidney Disease Stage (GFR) and Estimated GFR (Cockroft-Gault) will NOT be calculated if Creatinine result is <0.2. Kidney Disease Stage > 90 mL/MIN Comment: NOTE; ??The GFR is an estimated [...] or on dialysis @ Est GFR (Cockcroft-G) 263 ml/MIN Comment: Estimated GFR(Cockroft-Gault)is used to calculate patient medication dosage Calcium 10.0 8.6 - 10.3 mg/dL 08/03/2018 2:34 PM T [facility] HISTORICAL RESULTS Total Protein 8.1 6.4 - 8.3 g/dL 08/03/2018 2:34 PM T [facility] HISTORICAL RESULTS Albumin 4.6 3.5 - 5.0 g/dL 08/03/2018 2:34 PM T [facility] HISTORICAL RESULTS Globulin 3.5 2.3 - 3.5 gm/dL Albumin/Globulin Ratio 1.3 1.1 - 1.8 08/03/2018 2:34 PM T [facility] HISTORICAL RESULTS Total Bilirubin 2.2(H) 0.0 - 1.2 mg/dL 08/03/2018 2:34 PM T [facility] HISTORICAL RESULTS AST 48(H) 0 - 40 U/L ALT 66(H) 0 - 41 U/L Alkaline Phosphatase 91 40 - 129 U/L 08/03/2018 2:01 PM CDT 08/03/2018 2:11 PM CDT us Floresita Ortega VEHICLE REFINISHER LAB BLOOD ORDERABLES Faith barrett Result [facility] HISTORICAL RESULTS * (ABNORMAL) CBC with auto differential (08/03/2018 2:01 PM CDT) WBC 11.6(H) 3.8 - 9.9 X10 3/ul 08/03/2018 2:24 PM T [facility] HISTORICAL RESULTS RBC 6.05(H) 4.30 - 5.80 x10 6/ul 08/03/2018 2:24 PM T [facility] HISTORICAL RESULTS Hemoglobin 16.9 13.0 - 17.5 g/dL Hct 49.4 38.9 - 50.3 % MCV 81.7 81.3 - 96.4 fl MCH 27.9 27.1 - 33.3 pg MCHC 34.2 32.3 - 35.7 g/dl RDW 12.3 11.1 - 14.9 % Plt Count 290 150 - 400 x10 3/ul MPV 11.4 9.1 - 12.3 fl Neut % 69.9 % Immature Gran % 0.5 % 9 2:24 PM [facility] HISTORICAL RESULTS Lymph % 19.8 % [place] % 8.8 % Eos % 0.5 % Baso % 0.5 % Absolute Neuts (auto) 8.1(H) 1.7 - 6.5 x10 3/ul Immature Gran # 0.1 0.0 - 0.1 x10 3/ul Absolute Lymphs (auto) 2.3 0.8 - 3.3 x10 3/ul Absolute Monos (auto) 1.0(H) 0.2 - 0.8 x10 3/ul 08/03/2018 2:24 PM T [facility] HISTORICAL RESULTS Absolute Eos (auto) 0.1 0.0 - 0.5 x10 3/ul 08/03/2018 2:24 PM T [facility] HISTORICAL RESULTS Absolute Basos (auto) 0.1 0.0 - 0.1 x10 3/ul 08/03/2018 2:24 PM T [facility] HISTORICAL RESULTS Nucleat RBC Rel Count 0.0 #/100WBC Absolute Nucleated RBC 0.00 0.00 - 0.01 x10 3/ul Absolute Neutrophils 8100(H) 200 - 8000 /ul 08/03/2018 2:01 PM CDT 08/03/2018 2:11 PM CDT Floresita Ortega VEHICLE REFINISHER LAB BLOOD ORDERABLES Faith l Result [facility] HISTORICAL RESULTS * (ABNORMAL) Urinalysis (08/03/2018 1:50 PM CDT) Ur Collection Type CLEAN CATCH Urine Color YELLOW YELLOW Urine Clarity CLEAR CLEAR Urine Glucose (UA) NORMAL NORMAL mg/dL Urine Bilirubin NEGATIVE NEGATIVE mg/dl Urine Ketones 20 NEGATIVE mg/dL Ur Specific [place] 1.017 1.005 - 1.025 Urine Blood NEGATIVE NEGATIVE mg/dl Urine pH 7.0 5.0 - 8.0 08/03/2018 2:22 PM CDT [facility] HISTORICAL RESULTS Urine Protein NEGATIVE NEGATIVE mg/dL 08/03/2018 2:22 PM T [facility] HISTORICAL RESULTS Urine Urobilinogen 2(H) NORMAL mg/dL 08/03/2018 2:22 PM T [facility] HISTORICAL RESULTS Urine Nitrite NEGATIVE NEGATIVE 08/03/2018 2:22 PM T [facility] HISTORICAL RESULTS Ur Leukocyte Esterase NEGATIVE NEGATIVE Luis/ul 08/03/2018 2:22 PM T [facility] HISTORICAL RESULTS Ur Microscopic Review Not Indicated 08/03/2018 2:22 PM T [facility] HISTORICAL RESULTS 08/03/2018 1:50 PM CDT 08/03/2018 2:12 PM CDT us Floresita Ortega VEHICLE REFINISHER LAB URINE ORDERABLES Faith l Result [facility] HISTORICAL RESULTS documented in this encounter Visit Diagnoses Not on filedocumented in this encounter Care Teams Casing Grader Relationship Specialty Start Date End Date Osbaldo Hong MD PCP - General 07/23/18 01/05/19 documented as of this encounter
--- OUTSIDE RECORDS SUMMARY | 2024-05-26 02:47 | XMS_ITS | Encounter Summary ---
Author Organization [facility] Healthcare Address [address] [place] [address] Care Team Providers Care Well Drill Operator Rotary Drill Name Role Phone Osbaldo Hong MD Primary Care Provider [phone] Encounter Details Date Type Department Care Team (Latest Contact Info) Description 07/23/2018 9:08 AM EARLY CHILDHOOD ASSOCIATE - 07/23/2018 1:36 PM EARLY CHILDHOOD ASSOCIATE [facility] [address] [place] [address] [place] [address] [place] [address] Discharge Disposition: Discharge to home or self care Social History Tobacco Use Types Packs/Day Years Used Date Smoking Tobacco: Never Assessed Sex and Gender Information Value Date Recorded Sex Assigned at Not on file Legal Sex Male 6:55 PM EARLY CHILDHOOD ASSOCIATE Gender Identity Not on file Sexual Orientation Not on file documented as of this encounter Last Filed Vital Signs Vital Sign Reading Time Taken Comments Blood Pressure 142/76 07/23/2018 9:13 AM EARLY CHILDHOOD ASSOCIATE Pulse 80 07/23/2018 9:13 AM EARLY CHILDHOOD ASSOCIATE Temperature 37 ??C (98.6 ??F) 07/23/2018 9:13 AM EARLY CHILDHOOD ASSOCIATE Respiratory Rate - - Oxygen Saturation 100% 07/23/2018 9:13 AM EARLY CHILDHOOD ASSOCIATE Inhaled Oxygen Concentration - - Weight 122.4 kg (269 lb 13.5 oz) 07/23/2018 9:13 AM EARLY CHILDHOOD ASSOCIATE Height 185.4 cm (6' 1 ) 07/23/2018 9:13 AM EARLY CHILDHOOD ASSOCIATE Body Mass Index 35.6 07/23/2018 9:13 AM EARLY CHILDHOOD ASSOCIATE documented in this encounter Medications at Time of Discharge famotidine (PEPCID) 20 mg tablet Take 1 tablet (20 mg total) by mouth nightly as needed for indigestion or heartburn 0 07/23/2018 4 omeprazole (PriLOSEC) 20 mg capsule Take 20 mg by mouth 2 (two) times a day 0 06/02/2018 4 documented as of this encounter Discharge Disposition Disposition Code Departure Means Destination Discharge to home or self care documented in this encounter Plan of Treatment Not on file documented as of this encounter Procedures Procedure Name Priority Date/Time Associated Diagnosis Comments URINALYSIS AND REFLEX TO MICROSCOPIC AND CULTURE Routine 07/23/2018 11:21 AM EARLY CHILDHOOD ASSOCIATE INFLUENZA VIRUS PCR, CDR Routine 07/23/2018 10:15 AM EARLY CHILDHOOD ASSOCIATE SEPSIS LACTATE Routine 07/23/2018 9:25 AM EARLY CHILDHOOD ASSOCIATE CBC WITH AUTO DIFFERENTIAL Routine 07/23/2018 9:25 AM EARLY CHILDHOOD ASSOCIATE LIPASE Routine 07/23/2018 9:25 AM EARLY CHILDHOOD ASSOCIATE AMYLASE Routine 07/23/2018 9:25 AM EARLY CHILDHOOD ASSOCIATE COMPREHENSIVE METABOLIC PANEL Routine 07/23/2018 9:25 AM EARLY CHILDHOOD ASSOCIATE US KIDNEY COMPLETE Routine 07/23/2018 12 :[address]ILDHOOD ASSOCI[address] ABDOMEN PELVIS W CONTRAST Routine 07/23/2018 12:00 AM EARLY CHILDHOOD ASSOCIATE XR CHEST PA LATERAL 2 VIEWS Routine 07/23/2018 12:00 AM EARLY CHILDHOOD ASSOCIATE documented in this encounter Results * (ABNORMAL) Urinalysis reflex to microscopic and culture (07/23/2018 11:21 AM EARLY CHILDHOOD ASSOCIATE) Ur Collection Type CLEAN CATCH 07/23/2018 12:24 PM EARLY CHILDHOOD ASSOCIATE [employer] HISTORICAL RESULTS Ur Culture Indicated? C&S NOT INDICATED 07/23/2018 12:24 PM EARLY CHILDHOOD ASSOCIATE [employer] HISTORICAL RESULTS Urine Color YELLOW YELLOW 07/23/2018 12:24 PM EARLY CHILDHOOD ASSOCIATE [employer] HISTORICAL RESULTS Urine Clarity HAZY CLEAR 07/23/2018 12:24 PM EARLY CHILDHOOD ASSOCIATE [facility] [employer] HISTORICAL RESULTS Urine Glucose (UA) NORMAL NORMAL mg/dL Urine Bilirubin NEGATIVE NEGATIVE mg/dl Urine Ketones 80(H) NEGATIVE mg/dL Ur Specific [place] 1.045(H) 1.005 - 1.025 Urine Blood NEGATIVE NEGATIVE mg/dl Urine pH 8.0 5.0 - 8.0 Urine Protein NEGATIVE NEGATIVE mg/dL Urine Urobilinogen NORMAL NORMAL mg/dL Urine Nitrite NEGATIVE NEGATIVE Ur Leukocyte Esterase NEGATIVE NEGATIVE Luis/ul Ur Microscopic Review Indicated or Ordered Urine RBC 6 0 - 2 /HPF Urine WBC 3 0 - 2 /HPF Urine Mucus RARE /LPF Amorphous Crystals Few /HPF 07/23/2018 11:2 1 AM EARLY CHILDHOOD ASSOCIATE 07/23/2018 11:32 AM EARLY CHILDHOOD ASSOCIATE Narrative [facility] HISTORICAL RESULTS - 07/23/2018 12:24 PM EARLY CHILDHOOD ASSOCIATE Indication(s) for ordering ? Fever -unknown source us Corine Johnston NP LAB MICROBIOLOGY - GENERAL ORDERABLES Final Result [facility] HISTORICAL RESULTS * Influenza virus PCR (07/23/2018 10:15 AM EARLY CHILDHOOD ASSOCIATE) Influenza A RNA FLU A NEGATIVE NEGATIVE Influenza B RNA FLU B NEGATIVE NEGATIVE 07/23/2018 10:1 5 AM EARLY CHILDHOOD ASSOCIATE 07/23/2018 10:20 AM EARLY CHILDHOOD ASSOCIATE Narrative [facility] HISTORICAL RESULTS - 07/23/2018 11:12 AM EARLY CHILDHOOD ASSOCIATE Collected By mm Corine Johnston RN PRODUCTION LAB MICROBIOLOGY - GENERAL ORDERABLES Final Result Performing Organization Address [facility]/ZIP Co de Phone Number [facility] HISTORICAL RESULTS * (ABNORMAL) Lipase (07/23/2018 9:25 AM EARLY CHILDHOOD ASSOCIATE) Lipase 12(L) 13 - 60 U/L 07/23/2018 9:25 AM EARLY CHILDHOOD ASSOCIATE 07/23/2018 9:36 AM EARLY CHILDHOOD ASSOCIATE Colton Bass MD LAB BLOOD ORDERABLES Faith l Result Performing Organization Address [facility] de Phone Number [facility] HISTORICAL RESULTS * (ABNORMAL) Comprehensive metabolic panel (07/23/2018 9:25 AM EARLY CHILDHOOD ASSOCIATE) Sodium 134(L) 135 - 145 mmol/L Potassium 3.6 3.3 - 5.1 mmol/L Chloride 94(L) 96 - 108 mmol/L Carbon Dioxide 22 22 - 32 mmol/L Anion Gap 18(H) 7 - 16 Glucose 112(H) 70 - 100 mg/dL BUN 15 8 - 25 mg/dL Creatinine 0.7 0.5 - 1.3 mg/dL 07/23/2018 10:01 AM [employer] HISTORICAL RESULTS Comment: NOTE: Estimated GFR (Cockroft-Gault) will NOT be calculated unless patient Height and Weight were entered. Also, Kidney Disease Stage (GFR) and Estimated GFR (Cockroft-Gault) will NOT be calculated if Creatinine result is <0.2. Kidney Disease Stage > 90 mL/MIN 07/23/2018 10:01 AM [employer] HISTORICAL RESULTS Comment: NOTE; ??The GFR is [...] or on dialysis @ Est GFR (Cockcroft-G) 231 ml/MIN 07/23/2018 10:01 AM [employer] HISTORICAL RESULTS Comment: Estimated GFR(Cockroft-Gault)is used to calculate patient medication dosage Calcium 10.1 8.6 - 10.3 mg/dL 07/23/2018 10:01 AM [employer] HISTORICAL RESULTS Total Protein 8.2 6.4 - 8.3 g/dL 07/23/2018 10:01 AM [employer] HISTORICAL RESULTS Albumin 4.6 3.5 - 5.0 g/dL 07/23/2018 10:01 AM [employer] HISTORICAL RESULTS Globulin 3.6(H) 2.3 - 3.5 gm/dL Albumin/Globulin Ratio 1.3 1.1 - 1.8 07/23/2018 10:01 AM EARLY CHILDHOOD ASSOCIATE [facility] HISTORICAL RESULTS Total Bilirubin 1.1 0.0 - 1.2 mg/dL 07/23/2018 10:01 AM EARLY CHILDHOOD ASSOCIATE [facility] HISTORICAL RESULTS AST 22 0 - 40 U/L 07/23/2018 10:01 AM EARLY CHILDHOOD ASSOCIATE [facility] HISTORICAL RESULTS ALT 29 0 - 41 U/L Alkaline Phosphatase 106 40 - 129 U/L 07/23/2018 9:25 AM EARLY CHILDHOOD ASSOCIATE 07/23/2018 9:36 AM [facility] us Colton Bass MD LAB BLOOD ORDERABLES Faith l Result [facility] HISTORICAL RESULTS * (ABNORMAL) CBC with auto differential (07/23/2018 9:25 AM EARLY CHILDHOOD ASSOCIATE) WBC 16.0(H) 3.8 - 9.9 X10 3/ul RBC 5.89(H) 4.30 - 5.80 x10 6/ul Hemoglobin 16.4 13.0 - 17.5 g/dL Hct 48.2 38.9 - 50.3 % MCV 81.8 81.3 - 96.4 fl MCH 27.8 27.1 - 33.3 pg MCHC 34.0 32.3 - 35.7 g/dl RDW 12.5 11.1 - 14.9 % Plt Count 336 150 - 400 x10 3/ul MPV 10.6 9.1 - 12.3 fl Neut % 74.0 % Immature Gran % 0.8 % 9 9:57 AM [facility] HISTORICAL RESULTS Lymph % 17.0 % [place] % 7.4 % Eos % 0.3 % Baso % 0.5 % Absolute Neuts (auto) 11.8(H) 1.7 - 6.5 x10 3/ul Immature Gran # 0.1 0.0 - 0.1 x10 3/ul Absolute Lymphs (auto) 2.7 0.8 - 3.3 x10 3/ul Absolute Monos (auto) 1.2(H) 0.2 - 0.8 x10 3/ul Absolute Eos (auto) 0.1 0.0 - 0.5 x10 3/ul Absolute Basos (auto) 0.1 0.0 - 0.1 x10 3/ul Nucleat RBC Rel Count 0.0 #/100WBC Absolute Nucleated RBC 0.00 0.00 - 0.01 x10 3/ul Absolute Neutrophils 02787(H) 200 - 8000 /ul 07/23/2018 9:25 AM EARLY CHILDHOOD ASSOCIATE 07/23/2018 9:36 AM EARLY CHILDHOOD ASSOCIATE Colton Bass MD LAB BLOOD ORDERABLES Faith l Result Performing Organization Address [facility] Co de Phone Number [facility] HISTORICAL RESULTS * Amylase (07/23/2018 9:25 AM EARLY CHILDHOOD ASSOCIATE) Amylase 35 28 - 100 U/L 07/23/2018 10:01 AM EARLY CHILDHOOD ASSOCIATE [facility] HISTORICAL RESULTS 07/23/2018 9:25 AM EARLY CHILDHOOD ASSOCIATE 07/23/2018 9:36 AM EARLY CHILDHOOD ASSOCIATE us Colton Bass MD LAB BLOOD ORDERABLES Faith l Result Performing Organization Address [facility] de Phone Number [facility] HISTORICAL RESULTS * (ABNORMAL) Sepsis Lactate (07/23/2018 9:25 AM EARLY CHILDHOOD ASSOCIATE) Sepsis lactate 2.6(HH) mmol/L 07/23/2018 10:08 AM EARLY CHILDHOOD ASSOCIATE [facility] HISTORICAL RESULTS Comment: CRITICAL VALUE CALLED and REPEATED. ?? at:1007 07/23/18 by:Alivia Parada to:RAUL [id number] ?? Lactate Reference Range: 0.5 - 2.2 mmol/L 07/23/2018 9:25 AM EARLY CHILDHOOD ASSOCIATE 07/23/2018 9:36 AM EARLY CHILDHOOD ASSOCIATE us Colton Bass MD LAB BLOOD ORDERABLES Faith l Result Performing Organization Address [facility] Co de Phone Number [facility] HISTORICAL RESULTS * XR Chest Pa Lateral 2 Views (07/23/2018 12:00 AM EARLY CHILDHOOD ASSOCIATE) Anatomical Region Laterality Modality Body, Chest N/A Radiographic Mayra ging 07/23/2018 Impressions 07/23/2018 10:09 AM EARLY CHILDHOOD ASSOCIATE ??No acute cardiopulmonary abnormality. THIS IS AN ELECTRONICALLY VERIFIED FINAL REPORT 07/23/2018 10:06 AM - Electronically signed by Dashawn Stevens M.D. WM: D: ??07/23/2018 10:06 AM T: ??07/23/2018 10:06 AM Report ID: [id number] Reading Location: ??[id number] [EOD] Narrative 07/23/2018 10:09 AM EARLY CHILDHOOD ASSOCIATE EXAM DESCRIPTION: ??Chest 2 Views REASON FOR STUDY: ??PT STATES HE HAS BEEN SICK X 1 WEEK WITH ABDOMINAL PAIN/VOMITING /COUGH-BP IN ER WAS 153/100 TECHNIQUE: ??Frontal and lateral radiographic views of the chest acquired. COMPARISON: ??None FINDINGS: LUNGS/PLEURA: No focal consolidation or pneumothorax. No pleural effusion. HEART/MEDIASTINUM: Heart size is normal. Normal mediastinal and hilar contours. HARDWARE/LINES/TUBES: None. BONES: No acute findings. OTHER: No other significant finding. Procedure Note Provider, MD Sherri - 10/12/2020 EXAM DESCRIPTION: Chest 2 Views REASON FOR STUDY: PT STATES HE HAS BEEN SICK X 1 WEEK WITH ABDOMINAL PAIN/VOMITING /COUGH-BP IN ER WAS 153/100 TECHNIQUE: Frontal and lateral radiographic views of the chestacquired. COMPARISON: None FINDINGS: LUNGS/PLEURA: No focal consolidation or pneumothorax. No pleuraleffusion. HEART/MEDIASTINUM: Heart size is normal. Normal mediastinal and hilarcontours. HARDWARE/LINES/TUBES: None. BONES: No acute findings. OTHER: No other significant finding. IMPRESSION: No acute cardiopulmonary abnormality. THIS IS AN ELECTRONICALLY VERIFIED FINAL REPORT 07/23/2018 10:06 AM - Electronically signed by Dashawn Stevens M.D. WM: Report ID: [id number] Reading Location: [id number] [EOD] us Corine Phame Preston RN PRODUCTION IMG XR PROCEDURES Final Res ult * US Kidney Complete (07/23/2018 12:00 AM EARLY CHILDHOOD ASSOCIATE) Anatomical Region Laterality Modality Kidney N/A Ultrasound 07/23/2018 Impressions 07/23/2018 1:26 PM EARLY CHILDHOOD ASSOCIATE ??Right renal cysts x2. THIS IS AN ELECTRONICALLY VERIFIED FINAL REPORT 07/23/2018 1:23 PM - Electronically signed by Portillo Lara M.D. MARBELLA: MARBELLA D: ??07/23/2018 1:23 PM T: ??07/23/2018 1:23 PM Report ID: [id number] Reading Location: ??[id number] [EOD] Narrative 07/23/2018 1:26 PM EARLY CHILDHOOD ASSOCIATE EXAM DESCRIPTION: ??US Renal - Bilateral REASON FOR STUDY: ??Acute left flank pain with associated fever, nausea, and vomiting since 07/16/2018. TECHNIQUE: ??Ultrasound of the kidneys and urinary bladder was performed with grayscale imaging. COMPARISON: ??Relevant portions of CT abdomen/pelvis with contrast earlier same , 06/19/2018, 05/28/2018, and 10/29/2017 FINDINGS: RIGHT KIDNEY: The right kidney measures 11.7 x 6.7 x 6.2 cm. There is no hydronephrosis. ??2.0 x 1.6 cm right midpole parapelvic cyst and 1.3 x 1.2 cm right inferior pole renal cyst. ??There is normal cortical thickness and echogenicity. LEFT KIDNEY: The left kidney measures 12.4 x 6.2 x 6.4 cm. There is no hydronephrosis. ??No sonographic evidence of discrete left renal lesion. ??There is normal cortical thickness and echogenicity. URINARY BLADDER: The urinary bladder, as visualized, is unremarkable. ??The bilateral ureteral jets are visualized. OTHER: No other additional findings. Procedure Note Provider, MD Sherri - 10/12/2020 EXAM DESCRIPTION: US Renal - Bilateral REASON FOR STUDY: Acute left flank pain with associated fever, nausea,and vomiting since 07/16/2018. TECHNIQUE: Ultrasound of the kidneys and urinary bladder was performedwith grayscale imaging. COMPARISON: Relevant portions of CT abdomen/pelvis with contrast earliersa, 06/19/2018, 05/28/2018, and 10/29/2017 FINDINGS: RIGHT KIDNEY: The right kidney measures 11.7 x 6.7 x 6.2 cm. There is no hydronephrosis. 2.0 x 1.6 cm right midpole parapelvic cyst and 1.3 x 1.2cm right inferior pole renal cyst. There is normal cortical thickness and echogenicity. LEFT KIDNEY: The left kidney measures 12.4 x 6.2 x 6.4 cm. There is no hydronephrosis. No sonographic evidence of discrete left renal lesion.There is normal cortical thickness and echogenicity. URINARY BLADDER: The urinary bladder, as visualized, is unremarkable. The bilateral ureteral jets are visualized. OTHER: No other additional findings. IMPRESSION: Right renal cysts x2. THIS IS AN ELECTRONICALLY VERIFIED FINAL REPORT 07/23/2018 1:23 PM - Electronically signed by Portillo Lara M.D. MARBELLA: AMRBELLA Report ID: [id number] Reading Location: [id number] [EOD] us Corine Johnston RN PRODUCTION IMG US PROCEDURES Final Res ult * CT Abdomen Pelvis W Contrast (07/23/2018 12:00 AM EARLY CHILDHOOD ASSOCIATE) Anatomical Region Laterality Modality Body N/A Computed Tomogra phy 07/23/2018 Impressions 07/23/2018 11:01 AM EARLY CHILDHOOD ASSOCIATE ??1.4 cm somewhat ill-defined round focus of low attenuation in the right kidney anteriorly. ??This might represent a cyst. ??If renal abscess is a clinical consideration then ultrasound the kidneys would be helpful. THIS IS AN ELECTRONICALLY VERIFIED FINAL REPORT 07/23/2018 10:58 AM - Electronically signed by Polo TYSON: MARBELLA D: ??07/23/2018 10:58 AM T: ??07/23/2018 10:58 AM Report ID: [id number] Reading Location: ??[id number] [EOD] Narrative 07/23/2018 11:01 AM EARLY CHILDHOOD ASSOCIATE EXAM DESCRIPTION: ??CT Abd/Pelvis W IV Contrast REASON FOR STUDY: ??elevated white blood cell count, vomiting since TECHNIQUE: ??CT scan of the abdomen and pelvis performed with intravenous and without oral contrast using helical scanning technique with dynamic intravenous contrast injection. Reconstructed coronal and sagittal MPR images reviewed. All images stored on PACS. Automated exposure control was used as a dose optimization technique for this examination. CONTRAST TYPE/DOSE: ??100 cc of Optiray 350 was injected via the right antecubital vein COMPARISON: ??CT from 06/19/2018 FINDINGS: LOWER CHEST: No significant pulmonary abnormalities. No effusion. LIVER: Normal size. ??No identified cystic or solid masses. GALLBLADDER: No stones identified. No wall thickening or inflammatory changes. BILE DUCTS: No intrahepatic or extrahepatic ductal dilatation. SPLEEN: Normal size. ??No focal lesions. PANCREAS: No identified cystic or solid masses. No significant calcifications. No adjacent inflammation or peripancreatic fluid collections. Pancreatic duct not dilated. ADRENALS: Normal. KIDNEYS/URINARY TRACT: There is a 1.4 cm somewhat ill-defined focus of low attenuation in the right kidney. ??Urinary bladder is unremarkable. GI: No dilated bowel loops. No obvious wall thickening. ??Normal appendix. ??No significant diverticular disease. PERITONEUM: No ascites or free air. RETROPERITONEUM: No mass or adenopathy. REPRODUCTIVE: No significant abnormality. VASCULATURE: No abdominal aortic aneurysm. MUSCULOSKELETAL: No significant abnormality. OTHER: No other abnormality. Procedure Note Provider, MD Sherri - 10/12/2020 EXAM DESCRIPTION: CT Abd/Pelvis W IV Contrast REASON FOR STUDY: elevated white blood cell count, vomiting sinceThursday TECHNIQUE: CT scan of the abdomen and pelvis performed with intravenousand without oral contrast using helical scanning technique with dynamic intravenous contrast injection. Reconstructed coronal and sagittal MPRimages reviewed. All images stored on PACS. Automated exposure control was used as a dose optimization technique forthis examination. CONTRAST TYPE/DOSE: 100 cc of Optiray 350 was injected via the right antecubital vein COMPARISON: CT from 06/19/2018 FINDINGS: LOWER CHEST: No significant pulmonary abnormalities. No effusion. LIVER: Normal size. No identified cystic or solid masses. GALLBLADDER: No stones identified. No wall thickening or inflammatorychanges. BILE DUCTS: No intrahepatic or extrahepatic ductal dilatation. SPLEEN: Normal size. No focal lesions. PANCREAS: No identified cystic or solid masses. No significantcalcifications. No adjacent inflammation or peripancreatic fluid collections. Pancreaticduct not dilated. ADRENALS: Normal. KIDNEYS/URINARY TRACT: There is a 1.4 cm somewhat ill-defined focus of low attenuation in the right kidney. Urinary bladder is unremarkable. GI: No dilated bowel loops. No obvious wall thickening. Normal appendix.No significant diverticular disease. PERITONEUM: No ascites or free air. RETROPERITONEUM: No mass or adenopathy. REPRODUCTIVE: No significant abnormality. VASCULATURE: No abdominal aortic aneurysm. MUSCULOSKELETAL: No significant abnormality. OTHER: No other abnormality. IMPRESSION: 1.4 cm somewhat ill-defined round focus of low attenuation inthe right kidney anteriorly. This might represent a cyst. If renal abscessis a clinical consideration then ultrasound the kidneys would be helpful. THIS IS AN ELECTRONICALLY VERIFIED FINAL REPORT 07/23/2018 10:58 AM - Electronically signed by Polo Pham M.D. MARBELLA: MARBELLA Report ID: [id number] Reading Location: [place] [id number] [EOD] us Corine Johnston RN PRODUCTION IMG CT PROCEDURES Final Res ult documented in this encounter Visit Diagnoses Not on filedocumented in this encounter Care Teams Well Drill Operator Rotary Drill Relationship Specialty Start Date End Date Osbaldo Hong MD PCP - General 07/23/18 01/05/19 documented as of this encounter
--- OUTSIDE RECORDS SUMMARY | 2024-05-26 02:47 | XMS_ITS | Encounter Summary ---
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/HCC); 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 Social History Tobacco Use Types Packs/Day Years Used Date Smoking Tobacco: Never Assessed Sex and Gender Information Value Date Recorded Sex Assigned at Not on file Legal Sex Male 6:55 PM CHEMICAL ENGINEERING TECHNICIAN Gender Identity Not on file Sexual Orientation Not on file documented as of this encounter Last Filed Vital Signs Vital Sign Reading Time Taken Comments Blood Pressure 126/69 04/26/2018 11:34 AM CHEMICAL ENGINEERING TECHNICIAN Pulse 77 04/26/2018 11:34 AM CHEMICAL ENGINEERING TECHNICIAN Temperature 36.7 ??C (98 ??F) 04/26/2018 11: 34 AM CHEMICAL ENGINEERING TECHNICIAN Respiratory Rate - - Oxygen Saturation 98% 04/26/2018 11: 34 AM CHEMICAL ENGINEERING TECHNICIAN Inhaled Oxygen Concentration - - Weight 125.4 kg (276 lb 7.4 oz) 018 11:34 AM CHEMICAL ENGINEERING TECHNICIAN Height 182.9 cm (6') 04/26/2018 11:34 AM CHEMICAL ENGINEERING TECHNICIAN Body Mass Index 37.49 04/26/2018 11:34 AM CHEMICAL ENGINEERING TECHNICIAN documented in this encounter Plan of Treatment Not on file documented as of this encounter Visit Diagnoses Diagnosis Cannabis abuse with other cannabis-induced disorder (HCC) 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
--- OUTSIDE RECORDS SUMMARY | 2024-05-26 02:47 | XMS_ITS | Encounter Summary ---
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 Name Role Phone Unavailable Primary Care Provider Unavailabl e Encounter Details Date Type Department Care Team (Latest Contact Info) Description 05/28/2018 4:09 PM CONTENT DIRECTOR - 05/28/2018 8:42 PM CONTENT DIRECTOR Hospital Encounter [facility] Daniele Cordero MD [address] [address] Nausea with vomiting Social History Tobacco Use Types Packs/Day Years Used Date Smoking Tobacco: Never Assessed Sex and Gender Information Value Date Recorded Sex Assigned at Not on file Legal Sex Male 6:55 PM CONTENT DIRECTOR Gender Identity Not on file Sexual Orientation Not on file documented as of this encounter Last Filed Vital Signs Vital Sign Reading Time Taken Comments Blood Pressure 121/66 05/28/2018 4:19 PM CONTENT DIRECTOR Pulse 84 05/28/2018 4:19 PM CONTENT DIRECTOR Temperature 36.8 ??C (98.3 ??F) 05/28/2018 4:19 PM CS T Respiratory Rate - - Oxygen Saturation 99% 05/28/2018 4:19 PM CONTENT DIRECTOR Inhaled Oxygen Concentration - - Weight 119.3 kg (263 lb 0.2 oz) 05/28/2018 4:19 PM CONTENT DIRECTOR Height 185.4 cm (6' 1 ) 05/28/2018 4:19 PM CONTENT DIRECTOR Body Mass Index 34.7 05/28/2018 4:19 PM CONTENT DIRECTOR documented in this encounter Plan of Treatment Not on file documented as of this encounter Procedures Procedure Name Priority Date/Time Associated Diagnosis Comments CT ABDOMEN PELVIS W CONTRAST Routine 05/28/2018 6:50 PM CONTENT DIRECTOR URINALYSIS, MACRO AND MICRO Routine 05/28/2018 6:10 PM CONTENT DIRECTOR CBC WITH AUTO DIFFERENTIAL Routine 05/28/2018 6:00 PM CONTENT DIRECTOR COMPREHENSIVE METABOLIC PANEL Routine 05/28/2018 6:00 PM CONTENT DIRECTOR documented in this encounter Results * CT Abdomen Pelvis W Contrast (05/28/2018 6:50 PM CONTENT DIRECTOR) Anatomical Region Laterality Modality Body N/A Computed Tomogra phy 05/28/2018 6:50 PM CONTENT DIRECTOR Impressions 05/28/2018 8:08 PM CONTENT DIRECTOR ??No acute finding. THIS IS AN ELECTRONICALLY VERIFIED FINAL REPORT 05/28/2018 8:05 PM - Electronically signed by Lazaro Albarado VT: VT D: ??05/28/2018 8:05 PM T: ??05/28/2018 8:05 PM Report ID: [id number] Reading Location: ??[id number] [EOD] Narrative 05/28/2018 8:08 PM CONTENT DIRECTOR EXAM DESCRIPTION: ??CT Abd/Pelvis W IV Contrast REASON FOR STUDY: ??Nausea and vomiting for 3 days TECHNIQUE: ??CT scan of the abdomen and pelvis performed with intravenous and without oral contrast using helical scanning technique with dynamic intravenous contrast injection. Reconstructed coronal and sagittal MPR images reviewed. All images stored on PACS. Automated exposure control was used as a dose optimization technique for this examination. CONTRAST TYPE/DOSE: ??100 mL of Optiray 350 contrast were intravenously injected at the right antecubital fossa. COMPARISON: ??10/29/2017 FINDINGS: LOWER CHEST: No significant pulmonary abnormalities. [...] ADRENALS: Normal. KIDNEYS/URINARY TRACT: There is a small right renal cyst. ??No hydronephrosis. ?? Urinary bladder is unremarkable. GI: No dilated bowel loops. No obvious wall thickening. ??Normal appendix. ?? There is colonic diverticulosis. PERITONEUM: No ascites or free air. RETROPERITONEUM: No mass or adenopathy. REPRODUCTIVE: No significant abnormality. VASCULATURE: No abdominal aortic aneurysm. MUSCULOSKELETAL: No significant abnormality. OTHER: No other abnormality. Procedure Note Provider, Sherri, - 10/12/2020 EXAM DESCRIPTION: CT Abd/Pelvis W IV Contrast REASON FOR STUDY: Nausea and vomiting for 3 days TECHNIQUE: CT scan of the abdomen and pelvis performed with intravenousand without oral contrast using helical scanning technique with dynamic intravenous contrast injection. Reconstructed coronal and sagittal MPRimages reviewed. All images stored on PACS. Automated exposure control was used as a dose optimization technique forthis examination. CONTRAST TYPE/DOSE: 100 mL of Optiray 350 contrast were intravenously injected at the right antecubital fossa. COMPARISON: 10/29/2017 FINDINGS: LOWER CHEST: No significant pulmonary abnormalities. [...] ADRENALS: Normal. KIDNEYS/URINARY TRACT: There is a small right renal cyst. Nohydronephrosis. Urinary bladder is unremarkable. GI: No dilated bowel loops. No obvious wall thickening. Normal appendix. There is colonic diverticulosis. PERITONEUM: No ascites or free air. RETROPERITONEUM: No mass or adenopathy. REPRODUCTIVE: No significant abnormality. VASCULATURE: No abdominal aortic aneurysm. MUSCULOSKELETAL: No significant abnormality. OTHER: No other abnormality. IMPRESSION: No acute finding. THIS IS AN ELECTRONICALLY VERIFIED FINAL REPORT 05/28/2018 8:05 PM - Electronically signed by Lazaro Albarado VT: VT Report ID: [id number] Reading Location: [place] [id number] [EOD] us Hannah DAVIS [facility] CT PROCEDURES Final Resul t * (ABNORMAL) Urinalysis, macro and micro (05/28/2018 6:10 PM CONTENT DIRECTOR) Ur Collection Type CLEAN CATCH 05/28/2018 6:33 PM CONTENT DIRECTOR [facility] HISTORICAL RESULTS Urine Color RAHEL YELLOW Urine Clarity CLEAR CLEAR Urine Glucose (UA) NORMAL NORMAL mg/dL Urine Bilirubin NEGATIVE NEGATIVE mg/dl Urine Ketones 80(H) NEGATIVE mg/dL Ur Specific Webber 1.033(H) 1.005 - 1.025 Urine Blood NEGATIVE NEGATIVE mg/dl Urine pH 6.0 5.0 - 8.0 Urine Protein 30(H) NEGATIVE mg/dL Urine Urobilinogen 4(H) NORMAL mg/dL 05/28/2018 6:33 PM CONTENT DIRECTOR [facility] HISTORICAL RESULTS Urine Nitrite NEGATIVE NEGATIVE Ur Leukocyte Esterase NEGATIVE NEGATIVE Luis/ul Ur Microscopic Review Indicated or Ordered Urine RBC 3 0 - 2 /HPF Urine WBC 2 0 - 2 /HPF Urine Mucus Many /LPF 05/28/2018 6:10 PM CONTENT DIRECTOR 05/28/2018 6:20 PM [facility] us Hannah DAVIS LAB URINE ORDERABLES Final Re sult [facility] HISTORICAL RESULTS * (ABNORMAL) Comprehensive metabolic panel (05/28/2018 6:00 PM CONTENT DIRECTOR) Sodium 140 135 - 145 mmol/L Potassium 3.9 3.3 - 5.1 mmol/L Chloride 99 96 - 108 mmol/L Carbon Dioxide 26 22 - 32 mmol/L Anion Gap 15 7 - 16 Glucose 102(H) 70 - 100 mg/dL BUN 17 6 - 20 mg/dL Creatinine 0.6 0.5 - 1.3 mg/dL Comment: NOTE: Estimated GFR (Cockroft-Gault) will NOT [...] dialysis @ Est GFR (Cockcroft-G) 268 ml/MIN Comment: Estimated GFR(Cockroft-Gault)is used to calculate patient medication dosage Calcium 9.7 8.6 - 10.0 mg/dL Total Protein 7.6 6.4 - 8.3 g/dL Albumin 4.7 3.5 - 5.2 g/dL Globulin 2.9 2.3 - 3.5 gm/dL Albumin/Globulin Ratio 1.6 1.1 - 1.8 05/28/2018 6:48 PM CONTENT DIRECTOR [facility] HISTORICAL RESULTS Total Bilirubin 1.4(H) 0.0 - 1.2 mg/dL AST 19 0 - 40 U/L ALT 24 0 - 41 U/L Alkaline Phosphatase 96 40 - 129 U/L 05/28/2018 6:00 PM CONTENT DIRECTOR 05/28/2018 6:09 PM [facility] us Hannah DAVIS LAB BLOOD ORDERABLES Final Re sult [facility] HISTORICAL RESULTS * (ABNORMAL) CBC with auto differential (05/28/2018 6:00 PM CONTENT DIRECTOR) WBC 13.4(H) 3.8 - 9.9 X10 3/ul 05/28/2018 6:23 PM CONTENT DIRECTOR [facility] HISTORICAL RESULTS RBC 5.81(H) 4.30 - 5.80 x10 6/ul Hemoglobin 16.2 13.0 - 17.5 g/dL 05/28/2018 6:[address] [facility] HISTORICAL RESULTS Hct 48.3 38.9 - 50.3 % 05/28/2018 6:[address] [facility] HISTORICAL RESULTS MCV 83.1 81.3 - 96.4 fl 05/28/2018 6:[address] [facility] HISTORICAL RESULTS MCH 27.9 27.1 - 33.3 pg 05/28/2018 6:[address] [facility] HISTORICAL RESULTS MCHC 33.5 32.3 - 35.7 g/dl 05/28/2018 6:[address] [facility] HISTORICAL RESULTS RDW 12.6 11.1 - 14.9 % 05/28/2018 6:23 PM [facility] [employer] [facility] HISTORICAL RESULTS Plt Count 286 150 - 400 x10 3/ul 05/28/2018 6:[address] [facility] HISTORICAL RESULTS MPV 11.1 9.1 - 12.3 fl 05/28/2018 6:[address] [facility] HISTORICAL RESULTS Neut % 81.5 % 05/28/2018 6:[address] [facility] HISTORICAL RESULTS Immature Gran % 0.5 % 9 6:[address] [facility] HISTORICAL RESULTS Lymph % 12.1 % 05/28/2018 6:[address] [facility] HISTORICAL RESULTS Teller % 5.6 % 05/28/2018 6:[address] [facility] HISTORICAL RESULTS Eos % 0.0 % 05/28/2018 6:[address] [facility] HISTORICAL RESULTS Baso % 0.3 % 05/28/2018 6:[address] [facility] HISTORICAL RESULTS Absolute Neuts (auto) 11.0(H) 1.7 - 6.5 x10 3/ul 05/28/2018 6:[address] [facility] HISTORICAL RESULTS Immature Gran # 0.1 0.0 - 0.1 x10 3/ul 05/28/2018 6:[address] [facility] HISTORICAL RESULTS Absolute Lymphs (auto) 1.6 0.8 - 3.3 x10 3/ul 05/28/2018 6:23 PM [facility] [employer] [facility] HISTORICAL RESULTS Absolute Monos (auto) 0.8 0.2 - 0.8 x10 3/ul Absolute Eos (auto) 0.0 0.0 - 0.5 x10 3/ul 05/28/2018 6:23 PM CONTENT DIRECTOR [facility] HISTORICAL RESULTS Absolute Basos (auto) 0.0 0.0 - 0.1 x10 3/ul 05/28/2018 6:23 PM CONTENT DIRECTOR [facility] HISTORICAL RESULTS Nucleat RBC Rel Count 0.0 #/100WBC Absolute Nucleated RBC 0.00 0.00 - 0.01 x10 3/ul Absolute Neutrophils 53196(H) 200 - 8000 /ul 05/28/2018 6:00 PM CONTENT DIRECTOR 05/28/2018 6:09 PM CONTENT DIRECTOR us Hannah DAVIS LAB BLOOD ORDERABLES Final Re sult [facility] HISTORICAL RESULTS documented in this encounter Visit Diagnoses Diagnosis Nausea with vomiting documented in this encounter
--- OUTSIDE RECORDS SUMMARY | 2024-05-26 02:47 | XMS_ITS | Encounter Summary ---
Author Organization [facility] Healthcare Address [address] [place] [address] Care Team Providers Care Resource Room Teacher Name Role Phone Osbaldo Hong MD Primary Care Provider [phone]- [phone] Encounter Details Date Type Department Care Team (Late st Contact Info) Description 10/09/2018 11:25 AM CDT - 10/09/2018 5:28 PM CDT Hospital Encounter [facility] Emergency Department [address] [place] [address] Unknown, NotinfDarlin De La Torre, DO [address] [facility] [place] [address] Discharge Disposition: Discharge to home or self care Social History Tobacco Use Types Packs/Day Years Used Date Smoking Tobacco: Never Smokeless Tobacco: Never Alcohol Use Standard Drinks/Week Comments Yes 0 (1 standard drink = 0.6 oz pur e alcohol) Sex and Gender Information Value Date Recorded Sex Assigned at Not on file 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 Gender Identity Not on file Sexual Orientation Not on file documented as of this encounter Last Filed Vital Signs Vital Sign Reading Time Taken Comments Blood Pressure 111/58 10/09/2018 11:42 AM CDT Pulse 102 10/09/2018 11:42 AM CDT Temperature 37.1 ??C (98.7 ??F) 10/09/2018 11:42 AM C DT Respiratory Rate - - Oxygen Saturation 98% 10/09/2018 11:42 AM CDT Inhaled Oxygen Concentration - - Weight 117.9 kg (260 lb) 10/09/2018 11:42 AM CDT Height 182.9 cm (6') 10/09/2018 11:42 AM CDT Body Mass Index 35.26 10/09/2018 11:42 AM CDT documented in this encounter Medications [...] Date/Time Associated Diagnosis Comments URINALYSIS, COMPLETE Routine 10/09/2018 4:54 PM CDT URINALYSIS AND REFLEX TO MICROSCOPIC Routine 10/09/2018 4:54 PM CDT DRUGS OF ABUSE SCREEN, URINE WITHOUT CONFIRMATION Routine 10/09/2018 4:54 PM CDT CBC WITH AUTO DIFFERENTIAL Routine 10/09/2018 1:24 PM CDT COMPREHENSIVE METABOLIC PANEL Routine 10/09/2018 1:24 PM CDT documented in this encounter Results * Drug Screen, Urine without Confirmation (10/09/2018 4:54 PM CDT) [facility] Amphetamines NOT DETECTED [facility] Comment: This assay uses 500 ng/mL as a cutoff for a positive result. Barbiturates NOT DETECTED [facility] Comment: This assay uses 200 ng/mL as a cutoff for a positive result. Benzodiazepines NOT [facility]ECTED [facility] Comment: This assay uses 100 ng/mL as a cutoff for a positive result. Cannabinoids [facility]ED [facility] Comment: This assay uses 50 ng/mL as a cutoff for a positive result. Cocaine NOT DETECTED [facility] Comment: This assay uses 150 ng/mL as a cutoff for a positive result. Opiates NOT DETECTED [facility] Comment: This assay uses 300 ng/mL as a cutoff for a positive result. Urine methadone NOT DETECTED [facility] Comment: This assay uses 300 ng/mL as a cutoff for a positive result. Urine phencyclidine plus NOT DETECTED [facility] Comment: This assay uses 25 ng/mL as a cutoff for a positive result. Oxycodone NOT DETECTED [facility] Comment: This assay uses 100 ng/mL as a cutoff for a positive result. Urine Creatinine/MAGNOLIA 300.4 mg/dL [facility] Comment: If Creatinine is < 40 mg/dL, recollection is suggested. 10/09/2018 4:54 PM CDT 10/09/2018 4:59 PM CDT Narrative [facility] - 10/09/2018 5:34 PM CDT Collected By Resulting Agency Comment ER us Roseanne DAVIS LAB URINE ORDERABLES Faith barrett Result [address] [phone] * (ABNORMAL) Urinalysis, Complete (10/09/2018 4:54 PM CDT) Ur Collection Type CLEAN CATCH [facility] Urine Color YELLOW YELLOW [facility] Urine Clarity CLEAR CLEAR [facility] Urine Glucose (UA) NORMAL NORMAL mg/dL [facility] Urine Bilirubin NEGATIVE NEGATIVE mg/dl [facility] Urine Ketones 5(A) NEGATIVE mg/dL [facility] Ur Specific Oaks 1.034(H) 1.005 - 1.025 [facility] Urine Blood NEGATIVE NEGATIVE mg/dl [facility] Urine pH 6.0 5.0 - 8.0 [facility] Urine Protein 100(A) NEGATIVE mg/dL [facility] Urine Urobilinogen NORMAL NORMAL mg/dL [facility] Urine Nitrite NEGATIVE NEGATIVE [facility] Ur Leukocyte Esterase NEGATIVE NEGATIVE Luis/ul [facility] Ur Microscopic Review Indicated or Ordered [facility] Urine RBC 6 0 - 2 /HPF [facility] Urine WBC 1 0 - 2 /HPF [facility] Urine Mucus Few /LPF [facility] 10/09/2018 4:54 PM CDT 10/09/2018 4:59 PM CDT Narrative [facility] - 10/09/2018 5:14 PM CDT kp Clean catch Resulting Agency Comment ER us Roseanne DAVIS LAB URINE ORDERABLES Faith l Result [address] [phone] * (ABNORMAL) Urinalysis reflex to microscopic (10/09/2018 4:54 PM CDT) Ur Collection Type CLEAN CATCH [facility] Urine Color YELLOW YELLOW [facility] Urine Clarity CLEAR CLEAR [facility] Urine Glucose (UA) NORMAL NORMAL mg/dL [facility] Urine Bilirubin NEGATIVE NEGATIVE mg/dl [facility] Urine Ketones 5(A) NEGATIVE mg/dL [facility] Ur Specific Oaks 1.034(H) 1.005 - 1.025 [facility] Urine Blood NEGATIVE NEGATIVE mg/dl [facility] Urine pH 6.0 5.0 - 8.0 [facility] Urine Protein 100(A) NEGATIVE mg/dL [facility] Urine Urobilinogen NORMAL NORMAL mg/dL [facility] Urine Nitrite NEGATIVE NEGATIVE [facility] Ur Leukocyte Esterase NEGATIVE NEGATIVE Luis/ul [facility] Ur Microscopic Review Indicated or Ordered [facility] Urine RBC 6 0 - 2 /HPF [facility] Urine WBC 1 0 - 2 /HPF [facility] Urine Mucus Few /LPF [facility] 10/09/2018 4:54 PM CDT 10/09/2018 4:59 PM CDT Narrative [facility] - 10/09/2018 5:14 PM CDT kp Clean catch Resulting Agency Comment ER us Roseanne DAVIS LAB URINE ORDERABLES Faith nena Result [facility] [address] [phone] * (ABNORMAL) CBC with auto differential (10/09/2018 1:24 PM CDT) WBC 13.3(H) 3.8 - 9.9 X10 3/ul [facility] RBC 5.89(H) 4.30 - 5.80 x10 6/ul [facility] Hemoglobin 16.5 13.0 - 17.5 g/dL [facility] Hct 48.3 38.9 - 50.3 % [facility] MCV 82.0 81.3 - 96.4 fl [facility] MCH 28.0 27.1 - 33.3 pg [facility] MCHC 34.2 32.3 - 35.7 g/dl [facility] RDW 12.7 11.1 - 14.9 % [facility] Plt Count 242 150 - 400 x10 3/ul [facility] MPV 10.7 9.1 - 12.3 fl [facility] Neut % 90.3 % [facility] Immature Gran % 0.3 % [facility] Lymph % 4.2 % [facility] E Browsy - MD Insider Whit[place] % 5.1 % [facility] E Browsy - [facility] Eos % 0.0 % [facility] E AST [facility] AUTO BASO % 0.1 % [facility] NEUTROPHIL ABS # 12.0(H) 1.7 - 6.5 x10 3/ul [facility] Immature Gran # 0.0 0.0 - 0.1 x10 3/ul [facility] Absolute Lymphs (auto) 0.6(L) 0.8 - 3.3 x10 3/ul [facility] Absolute Monos (auto) 0.7 0.2 - 0.8 x10 3/ul [facility] Absolute Eos (auto) 0.0 0.0 - 0.5 x10 3/ul [facility] BASOPHIL ABS # 0.0 0.0 - 0.1 x10 3/ul [facility] Nucleat RBC Rel Count 0.0 #/100WBC [facility] NRBC abs 0.00 0.00 - 0.01 x10 3/ul [facility] Platelet Evaluation AGREE AGREE [facility] Comment: Slide review of platelets correlates with instrument count. RBC Morphology NORMAL NORMAL [facility] Absolute Neutrophils 12,000(H) 200 - 8,000 /ul [facility] 10/09/2018 1:24 PM CDT 10/09/2018 1:27 PM CDT Narrative Resulting Agency Comment ER us Roseanne DAVIS LAB BLOOD ORDERABLES Faith l Result [address] [phone] * (ABNORMAL) Comprehensive metabolic panel (10/09/2018 1:24 PM CDT) Sodium 138 135 - 145 mmol/L [facility] Potassium 3.8 3.3 - 5.1 mmol/L [facility] Chloride 101 96 - 108 mmol/L [facility] Carbon Dioxide 19(L) 22 - 32 mmol/L [facility] Anion Gap 18(H) 7 - 16 [facility] Glucose 142(H) 70 - 100 mg/dL [facility] BUN 17 8 - 25 mg/dL [facility] Creatinine 0.6 0.5 - 1.3 mg/dL [facility] Comment: NOTE: Estimated GFR (Cockroft-Gault) will NOT be calculated unless patient Height and Weight were entered. Also, Kidney Disease Stage (GFR) and Estimated GFR (Cockroft-Gault) will NOT be calculated if Creatinine result is <0.2. Kidney Disease Stage >90 mL/MIN [facility] Comment: NOTE; ??The GFR is [...] failure or on dialysis Est GFR (Cockcroft-G) 260 ml/MIN [facility] Comment: Estimated GFR(Cockroft-Gault)is used to calculate patient medication dosage Calcium 9.5 8.6 - 10.3 mg/dL [facility] Total Protein 7.7 6.4 - 8.3 g/dL [facility] Albumin 4.6 3.5 - 5.0 g/dL [facility] Globulin 3.1 2.3 - 3.5 gm/dL [facility] Albumin/Globulin Ratio 1.5 1.1 - 1.8 [facility] Total Bilirubin 1.3(H) 0.0 - 1.2 mg/dL [facility] AST 18 0 - 40 U/L [facility] ALT 22 0 - 41 U/L [facility] Alkaline Phosphatase 85 40 - 129 U/L [facility] 10/09/2018 1:24 PM CDT 10/09/2018 1:27 PM CDT Narrative Resulting Agency Comment ER us Roseanne DAVIS LAB BLOOD ORDERABLES Faith l Result [facility] [address] [place] [address], [place] [phone] documented in this encounter Visit Diagnoses Not on filedocumented in this encounter Care Teams Resource Room Teacher Relationship Specialty Start Date End Date Osbaldo Hong MD PCP - General 07/23/18 01/05/19 documented as of this encounter
--- OUTSIDE RECORDS SUMMARY | 2024-05-26 02:47 | XMS_ITS | Encounter Summary ---
Author Organization [facility] Address [address] [place] [address] Care Team Providers Care Heel Lift Gouger Name Role Phone Osbaldo Hong MD Primary Care Provider [phone]- [phone] Encounter Details Date Type Department Care Team (Late st Contact Info) Description 03/16/2019 11:22 AM CDT - 03/16/2019 1:26 PM CDT Hospital Encounter [facility] Emergency Department [address] [place] [address] Unknown, Germán Edwards MD [facility] [address] [place] [id number] Discharge Disposition: Discharge to home or self care Social History Tobacco Use Types Packs/Day Years Used Date Smoking Tobacco: Never Smokeless Tobacco: Never Alcohol Use Standard Drinks/Week Comments Yes 0 (1 standard drink = 0.6 oz pur e alcohol) Sex and Gender Information Value Date Recorded Sex Assigned at Not on file 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 Gender Identity Not on file Sexual Orientation Not on file documented as of this encounter Last Filed Vital Signs Vital Sign Reading Time Taken Comments Blood Pressure 130/88 03/16/2019 11:32 AM CDT Pulse 88 03/16/2019 11:32 AM CDT Temperature 36.9 ??C (98.5 ??F) 03/16/2019 1 1:32 AM CDT Respiratory Rate - - Oxygen Saturation 100% 03/16/2019 11: 32 AM CDT Inhaled Oxygen Concentration - - Weight 125.7 kg (277 lb 1.9 oz) 019 11:32 AM CDT Height 185.4 cm (6' 1 ) 03/16/2019 11:3 2 AM CDT Body Mass Index 36.56 03/16/2019 11:32 AM CDT documented in this encounter Medications [...] Diagnosis Comments CBC WITH AUTO DIFFERENTIAL Routine 03/16/2019 12:38 PM CDT LIPASE Routine 03/16/2019 12:38 PM CDT COMPREHENSIVE METABOLIC PANEL Routine 03/16/2019 12:38 PM CDT URINALYSIS, COMPLETE W/REFLEX TO CULTURE Routine 03/16/2019 12:00 PM CDT DRUGS OF ABUSE SCREEN, URINE WITHOUT CONFIRMATION Routine 03/16/2019 12:00 PM CDT documented in this encounter Results * (ABNORMAL) Lipase (03/16/2019 12:38 PM CDT) Lipase 11(L) 13 - 60 U/L [facility] 03/16/2019 12:3 8 PM CDT 03/16/2019 12:41 PM CDT Narrative Resulting Agency Comment ER us Sandra Bell DYEING MACHINE BACK TENDER LAB BLOOD ORDERABLES Final R esult [facility] [address] [place] [address], [facility] [phone] * (ABNORMAL) Comprehensive metabolic panel (03/16/2019 12:38 PM CDT) Sodium 137 135 - 145 mmol/L [facility] Potassium 3.6 3.3 - 5.1 mmol/L [facility] Chloride 94(L) 96 - 108 mmol/L [facility] Carbon Dioxide 23 22 - 32 mmol/L [facility] Anion Gap 20(H) 7 - 16 [facility] Glucose 106(H) 70 - 100 mg/dL [facility] BUN 14 8 - 25 mg/dL [facility] Creatinine 0.8 0.5 - 1.3 mg/dL [facility] Comment: NOTE: Estimated GFR (Cockroft-Gault) will NOT be calculated unless patient Height and Weight were entered. Also, Kidney Disease Stage (GFR) and Estimated GFR (Cockroft-Gault) will NOT be calculated if Creatinine result is <0.2. Kidney Disease Stage >90 mL/MIN [facility] Comment: NOTE; ??The GFR is [...] failure or on dialysis Est GFR (Cockcroft-G) 205 ml/MIN [facility] Comment: Estimated GFR(Cockroft-Gault)is used to calculate patient medication dosage Calcium 10.4(H) 8.6 - 10.3 mg/dL [facility] Total Protein 8.8(H) 6.4 - 8.3 g/dL [facility] Albumin 5.0 3.5 - 5.0 g/dL [facility] Globulin 3.8(H) 2.3 - 3.5 gm/dL [facility] Albumin/Globulin Ratio 1.3 1.1 - 1.8 [facility] Total Bilirubin 1.7(H) 0.0 - 1.2 mg/dL [facility] AST 40 0 - 40 U/L [facility] Comment: HEMOLYZED: Hemolysis interferes with the above test. ALT 34 0 - 41 U/L [facility] Alkaline Phosphatase 99 40 - 129 U/L [facility] 03/16/2019 12:3 8 PM CDT 03/16/2019 12:41 PM CDT Narrative Resulting Agency Comment ER us Sandra Bell DYEING MACHINE BACK TENDER LAB BLOOD ORDERABLES Final R esult [address] [phone] * (ABNORMAL) CBC with auto differential (03/16/2019 12:38 PM CDT) WBC 14.8(H) 3.8 - 9.9 X10 3/ul [facility] RBC 6.20(H) 4.30 - 5.80 x10 6/ul [facility] Hemoglobin 17.6(H) 13.0 - 17.5 g/dL [facility] Hct 49.3 38.9 - 50.3 % [facility] MCV 79.5(L) 81.3 - 96.4 fl [facility] MCH 28.4 27.1 - 33.3 pg [facility] MCHC 35.7 32.3 - 35.7 g/dl [facility] RDW 12.5 11.1 - 14.9 % [facility] Plt Count 334 150 - 400 x10 3/ul [facility] MPV 10.4 9.1 - 12.3 fl [facility] Neut % 73.8 % [facility] Immature Gran % 0.3 % [facility] Lymph % 18.2 % [facility] [place] % 7.4 % [facility] Eos % 0.0 % [facility] AUTO BASO % 0.3 % [facility] NEUTROPHIL ABS # 10.9(H) 1.7 - 6.5 x10 3/ul [facility] Immature Gran # 0.1 0.0 - 0.1 x10 3/ul [facility] Absolute Lymphs (auto) 2.7 0.8 - 3.3 x10 3/ul [facility] Absolute Monos (auto) 1.1(H) 0.2 - 0.8 x10 3/ul [facility] Absolute Eos (auto) 0.0 0.0 - 0.5 x10 3/ul [facility] BASOPHIL ABS # 0.1 0.0 - 0.1 x10 3/ul [facility] Nucleat RBC Rel Count 0.0 #/100WBC [facility] NRBC abs 0.00 0.00 - 0.01 x10 3/ul [facility] Absolute Neutrophils 10,900(H) 200 - 8,000 /ul [facility] 03/16/2019 12:3 8 PM CDT 03/16/2019 12:41 PM CDT Narrative Resulting Agency Comment ER us Sandra Bell DYEING MACHINE BACK TENDER LAB BLOOD ORDERABLES Final R esult [address] [phone] * Drugs of Abuse Screen, Urine without Confirmation (03/16/2019 12:00 PM CDT) [facility] Amphetamines NOT DETECTED [facility] Comment: This assay uses 500 ng/mL as a cutoff for a positive result. Barbiturates NOT DETECTED [facility] Comment: This assay uses 200 ng/mL as a cutoff for a positive result. Urine Fentanyl NOT DETECTED [facility] Comment: This assay uses 1 ng/mL as a cutoff for a positive result. Benzodiazepines NOT DETECTED [facility] Comment: This assay uses 100 ng/mL as a cutoff for a positive result. Cannabinoids DETECTED [facility] Comment: This assay uses 50 ng/mL as a cutoff for a positive result. Cocaine NOT DETECTED [facility] Comment: This assay uses 150 ng/mL as a cutoff for a positive result. Opiates NOT DETECTED [facility] Comment: This assay uses 300 ng/mL as a cutoff for a positive result. Urine methadone NOT DETECTED [facility] Comment: This assay uses 300 ng/mL as a cutoff for a positive result. Urine phencyclidine plus NOT DETECTED [facility] Comment: This assay uses 25 ng/mL as a cutoff for a positive result. Oxycodone NOT DETECTED [facility] Comment: This assay uses 100 ng/mL as a cutoff for a positive result. Urine Creatinine/MAGNOLIA 390.1 mg/dL [facility] Comment: If Creatinine is < 40 mg/dL, recollection is suggested. 03/16/2019 12:0 0 PM CDT 03/16/2019 12:15 PM CDT Narrative [facility] - 03/16/2019 12:47 PM CDT Collected By dlr Resulting Agency Comment ER Sandra Bell DYEING MACHINE BACK TENDER LAB URINE ORDERABLES [place] [address], [facility] [phone] * (ABNORMAL) URINALYSIS, COMPLETE W/REFLEX TO CULTURE (03/16/2019 12:00 PM CDT) Ur Collection Type CLEAN CATCH [facility] Ur Culture Indicated? C S NOT INDICATED [facility] Urine Color RAHEL YELLOW [facility] Urine Clarity CLEAR CLEAR [facility] Urine Glucose (UA) NORMAL NORMAL mg/dL [facility] Urine Bilirubin NEGATIVE NEGATIVE mg/dl [facility] Urine Ketones 20 NEGATIVE mg/dL [facility] Ur Specific [place] 1.029(H) 1.005 - 1.025 [facility] Urine Blood NEGATIVE NEGATIVE mg/dl [facility] Urine pH 7.0 5.0 - 8.0 [facility] Urine Protein 100(A) NEGATIVE mg/dL [facility] Urine Urobilinogen 2(A) NORMAL mg/dL [facility] Urine Nitrite NEGATIVE NEGATIVE [facility] Ur Leukocyte Esterase NEGATIVE NEGATIVE Luis/ul [facility] Ur Microscopic Review Indicated or Ordered [facility] Urine RBC 5 0 - 2 /HPF [facility] Urine WBC 2 0 - 2 /HPF [facility] Urine Mucus RARE /LPF [facility] 03/16/2019 12:0 0 PM CDT 03/16/2019 12:15 PM CDT Narrative [facility] - 03/16/2019 12:38 PM CDT Indication(s) for ordering ?? Pain-pelv/flank/suprapubc dlr Clean catch Resulting Agency Comment ER Sandra Bell DYEING MACHINE BACK TENDER LAB URINE ORDERABLES Final R esult Performing Organization Address [facility]/State/ZIP Co de Phone Number [facility] [address] [place] [address], [facility] [phone] documented in this encounter Visit Diagnoses Not on filedocumented in this encounter Care Teams Heel Lift Gouger Relationship Specialty Start Date End Date Osbaldo Hong MD [address] [place] [address] PCP - General 01/13/19 documented as of this encounter
--- OUTSIDE RECORDS SUMMARY | 2024-05-26 02:47 | XMS_ITS | Encounter Summary ---
Author Organization [facility] Address [address] [place] [address] Care Team Providers Care Curing Room Supervisor Name Role Phone Osbaldo Hong MD Primary Care Provider +1- [phone] Encounter Details Date Type Department Care Team (Late st Contact Info) Description 12/12/2018 5:16 PM CDT - 12/12/2018 9:45 PM CDT Hospital Encounter [facility] Emergency Department [address] [place] [address] Unknown, Ravindra Barnett, DO [address] [facility] [place] [address] Discharge Disposition: Discharge to home or self care Social History Tobacco Use Types Packs/Day Years Used Date Smoking Tobacco: Never Smokeless Tobacco: Never Alcohol Use Standard Drinks/Week Comments Yes 0 (1 standard drink = 0.6 oz pur e alcohol) Sex and Gender Information Value Date Recorded Sex Assigned at Not on file 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 Gender Identity Not on file Sexual Orientation Not on file documented as of this encounter Last Filed Vital Signs Vital Sign Reading Time Taken Comments Blood Pressure 128/80 12/12/2018 5:20 PM CDT Pulse 89 12/12/2018 5:20 PM CDT Temperature 36.7 ??C (98.1 ??F) 12/12/2018 5:20 PM CD T Respiratory Rate - - Oxygen Saturation 92% 12/12/2018 5:20 PM CDT Inhaled Oxygen Concentration - - Weight 123.2 kg (271 lb 9.8 oz) 12/12/2018 5:20 PM CDT Height 185.4 cm (6' 1 ) 12/12/2018 5:20 PM CDT Body Mass Index 35.83 12/12/2018 5:20 PM CDT documented in this encounter Medications [...] Date/Time Associated Diagnosis Comments URINALYSIS, COMPLETE Routine 12/12/2018 8:00 PM CDT DRUGS OF ABUSE SCREEN, URINE WITHOUT CONFIRMATION Routine 12/12/2018 8:00 PM CDT CBC WITH AUTO DIFFERENTIAL Routine 12/12/2018 5:33 PM CDT COMPREHENSIVE METABOLIC PANEL Routine 12/12/2018 5:33 PM CDT documented in this encounter Results * Drugs of Abuse Screen, Urine without Confirmation (12/12/2018 8:00 PM CDT) [facility] Amphetamines NOT DETECTED [facility] Comment: This assay uses 500 ng/mL as a cutoff for a positive result. Barbiturates NOT DETECTED [facility] Comment: This assay uses 200 ng/mL as a cutoff for a positive result. Benzodiazepines NOT DETECTED [facility] Comment: This assay uses 100 ng/mL as a cutoff for a positive result. Cannabinoids DETECTED [facility] Comment: This assay uses 50 ng/mL as a cutoff for a positive result. Cocaine NOT DETECTED [facility] Comment: This assay uses 150 ng/mL as a cutoff for a positive result. Opiates NOT DETECTED [facility] Comment: This assay uses 300 ng/mL as a cutoff for a positive result. Urine methadone NOT DETECTED [facility] Comment: This assay uses 300 ng/mL as a cutoff for a positive result. Urine phencyclidine plus NOT DETECTED [facility] Comment: This assay uses 25 ng/mL as a cutoff for a positive result. Oxycodone NOT DETECTED [facility] Comment: This assay uses 100 ng/mL as a cutoff for a positive result. Urine Creatinine/MAGNOLIA 161.4 mg/dL [facility] Comment: If Creatinine is < 40 mg/dL, recollection is suggested. 12/12/2018 8:00 PM CDT 12/12/2018 8:14 PM CDT Narrative [facility] - 12/12/2018 9:04 PM CDT Collected By Resulting Agency Comment ER Tammi Bolaños NP LAB URINE ORDERABLES Final Resu lt [address] [phone] * (ABNORMAL) Urinalysis, Complete (12/12/2018 8:00 PM CDT) Ur Collection Type CLEAN CATCH [facility] Urine Color YELLOW YELLOW [facility] Urine Clarity HAZY CLEAR [facility] Urine Glucose (UA) NORMAL NORMAL mg/dL [facility] Urine Bilirubin NEGATIVE NEGATIVE mg/dl [facility] Urine Ketones 5(A) NEGATIVE mg/dL [facility] Ur Specific [place] 1.018 1.005 - 1.025 [facility] Urine Blood NEGATIVE NEGATIVE mg/dl [facility] Urine pH 9.0(H) 5.0 - 8.0 [facility] Urine Protein NEGATIVE NEGATIVE mg/dL [facility] Urine Urobilinogen NORMAL NORMAL mg/dL [facility] Urine Nitrite NEGATIVE NEGATIVE [facility] Ur Leukocyte Esterase NEGATIVE NEGATIVE Luis/ul [facility] Ur Microscopic Review Indicated or Ordered [facility] Urine RBC 1 0 - 2 /HPF [facility] Urine WBC 3 0 - 2 /HPF [facility] Urine Mucus Few /LPF [facility] 12/12/2018 8:00 PM CDT 12/12/2018 8:14 PM CDT Narrative [facility] - 12/12/2018 8:37 PM CDT KP Clean catch Resulting Agency Comment ER us Tammi Bolaños FILM MASKER LAB URINE ORDERABLES Final Resu lt [address] [phone] * (ABNORMAL) Comprehensive metabolic panel (12/12/2018 5:33 PM CDT) Sodium 141 135 - 145 mmol/L [facility] Potassium 4.1 3.3 - 5.1 mmol/L [facility] Chloride 106 96 - 108 mmol/L [facility] Carbon Dioxide 21(L) 22 - 32 mmol/L [facility] Anion Gap 14 7 - 16 [facility] Glucose 137(H) 70 - 100 mg/dL [facility] BUN 12 8 - 25 mg/dL [facility] Creatinine 0.6 0.5 - 1.3 mg/dL [facility] Comment: NOTE: Estimated GFR (Cockroft-Gault) will NOT be calculated unless patient Height and Weight were entered. Also, Kidney Disease Stage (GFR) and Estimated GFR (Cockroft-Gault) will NOT be calculated if Creatinine result is <0.2. Kidney Disease Stage >90 mL/MIN [facility] Comment: NOTE; ??The GFR is an estimated [...] failure or on dialysis Est GFR (Cockcroft-G) 270 ml/MIN [facility] Comment: Estimated GFR(Cockroft-Gault)is used to calculate patient medication dosage Calcium 10.8(H) 8.6 - 10.3 mg/dL [facility] Total Protein 8.1 6.4 - 8.3 g/dL [facility] Albumin 5.1(H) 3.5 - 5.0 g/dL [facility] Globulin 3.0 2.3 - 3.5 gm/dL [facility] Albumin/Globulin Ratio 1.7 1.1 - 1.8 [facility] Total Bilirubin 0.9 0.0 - 1.2 mg/dL [facility] AST 22 0 - 40 U/L [facility] ALT 28 0 - 41 U/L [facility] Alkaline Phosphatase 89 40 - 129 U/L [facility] 12/12/2018 5:33 PM CDT 12/12/2018 5:37 PM CDT Narrative Resulting Agency Comment ER us Tammi Bolaños FILM MASKER LAB BLOOD ORDERABLES Final Resu lt [address] [phone] * (ABNORMAL) CBC with auto differential (12/12/2018 5:33 PM CDT) WBC 12.3(H) 3.8 - 9.9 X10 3/ul [facility] RBC 6.08(H) 4.30 - 5.80 x10 6/ul [facility] Hemoglobin 16.9 13.0 - 17.5 g/dL [facility] Hct 48.9 38.9 - 50.3 % [facility] MCV 80.4(L) 81.3 - 96.4 fl [facility] MCH 27.8 27.1 - 33.3 pg [facility] MCHC 34.6 32.3 - 35.7 g/dl [facility] RDW 12.6 11.1 - 14.9 % [facility] Plt Count 268 150 - 400 x10 3/ul [facility] MPV 10.9 9.1 - 12.3 fl [facility] Neut % 82.1 % [facility] Immature Gran % 0.4 % [facility] Lymph % 12.4 % [facility] AST - [facility] [place] % 4.1 % [facility] Eos % 0.6 % [facility] AUTO BASO % 0.4 % [facility] NEUTROPHIL ABS # 10.1(H) 1.7 - 6.5 x10 3/ul [facility] Immature Gran # 0.1 0.0 - 0.1 x10 3/ul [facility] Absolute Lymphs (auto) 1.5 0.8 - 3.3 x10 3/ul [facility] Absolute Monos (auto) 0.5 0.2 - 0.8 x10 3/ul [facility] Absolute Eos (auto) 0.1 0.0 - 0.5 x10 3/ul [facility] BASOPHIL ABS # 0.1 0.0 - 0.1 x10 3/ul [facility] Nucleat RBC Rel Count 0.0 #/100WBC [facility] NRBC abs 0.00 0.00 - 0.01 x10 3/ul [facility] Absolute Neutrophils 10,100(H) 200 - 8,000 /ul [facility] 12/12/2018 5:33 PM CDT 12/12/2018 5:37 PM CDT Narrative Resulting Agency Comment ER us Tammi Bolaños FILM MASKER LAB BLOOD ORDERABLES Final Resu lt Performing Organization Address City/State/[facility] Co de Phone Number [address] [phone] documented in this encounter Visit Diagnoses Not on filedocumented in this encounter Care Teams Curing Room Supervisor Relationship Specialty Start Date End Date Osbaldo Hong MD PCP - General 07/23/18 01/05/19 documented as of this encounter
--- OUTSIDE RECORDS SUMMARY | 2024-05-26 02:47 | XMS_ITS | Encounter Summary ---
Author Organization [facility] Healthcare Address [address] [place] [id number] Care Team Providers Care Real Estate Office Manager Name Role Phone Unavailable Primary Care Provider Unavailabl e Encounter Details Date Type Department Care Team (Latest Contact Info) Description 04/25/2018 1:41 PM PANTOGRAPH OPERATOR - 04/25/2018 4:19 PM PANTOGRAPH OPERATOR Hospital Encounter [facility] Daniele Cordero MD [address] [place] [address] Cannabis use, unspecified with other cannabis-induced disorder (CMS/HCC); Vomiting; Elevated white blood cell count Social History Tobacco Use Types Packs/Day Years Used Date Smoking Tobacco: Never Assessed Sex and Gender Information Value Date Recorded Sex Assigned at Not on file Legal Sex Male 6:55 PM PANTOGRAPH OPERATOR Gender Identity Not on file Sexual Orientation Not on file documented as of this encounter Last Filed Vital Signs Vital Sign Reading Time Taken Comments Blood Pressure 142/72 04/25/2018 1:45 PM PANTOGRAPH OPERATOR Pulse 66 04/25/2018 1:45 PM PANTOGRAPH OPERATOR Temperature 36.5 ??C (97.7 ??F) 04/25/2018 1:45 PM CS T Respiratory Rate - - Oxygen Saturation 98% 04/25/2018 1:45 PM PANTOGRAPH OPERATOR Inhaled Oxygen Concentration - - Weight 122.2 kg (269 lb 6.5 oz) 04/25/2018 1:45 PM PANTOGRAPH OPERATOR Height 185.4 cm (6' 1 ) 04/25/2018 1:45 PM PANTOGRAPH OPERATOR Body Mass Index 35.54 04/25/2018 1:45 PM PANTOGRAPH OPERATOR documented in this encounter Plan of Treatment Not on file documented as of this encounter Procedures Procedure Name Priority Date/Time Associated Diagnosis Comments CBC WITH AUTO DIFFERENTIAL Routine 04/25/2018 2:06 PM PANTOGRAPH OPERATOR LIPASE Routine 04/25/2018 2:06 PM PANTOGRAPH OPERATOR COMPREHENSIVE METABOLIC PANEL Routine 04/25/2018 2:06 PM PANTOGRAPH OPERATOR URINALYSIS Routine 04/25/2018 2:00 PM PANTOGRAPH OPERATOR DRUGS OF ABUSE SCREEN, URINE WITHOUT CONFIRMATION Routine 04/25/2018 2:00 PM PANTOGRAPH OPERATOR documented in this encounter Results * (ABNORMAL) Lipase (04/25/2018 2:06 PM PANTOGRAPH OPERATOR) Lipase 11(L) 13 - 60 U/L 04/25/2018 2:33 PM PANTOGRAPH OPERATOR [facility] HISTORICAL RESULTS 04/25/2018 2:06 PM PANTOGRAPH OPERATOR 04/25/2018 2:09 PM PANTOGRAPH OPERATOR us Ju Bustamante COLLECTIONS OFFICER LAB BLOOD ORDERABLES Final Resu lt [facility] HISTORICAL RESULTS * (ABNORMAL) Comprehensive metabolic panel (04/25/2018 2:06 PM PANTOGRAPH OPERATOR) Pathologist [facility] Sodium 140 135 - 145 mmol/L 04/25/2018 2:33 PM PANTOGRAPH OPERATOR [facility] HISTORICAL RESULTS Potassium 3.9 3.3 - 5.1 mmol/L Chloride 97 96 - 108 mmol/L Carbon Dioxide 29 22 - 32 mmol/L Anion Gap 14 7 - 16 Glucose 114(H) 70 - 100 mg/dL BUN 16 6 - 20 mg/dL Creatinine 0.7 0.5 - 1.3 mg/dL Comment: NOTE: Estimated GFR (Cockroft-Gault) will NOT be calculated unless patient Height and Weight were entered. Also, Kidney Disease Stage (GFR) and Estimated GFR (Cockroft-Gault) will NOT be calculated if Creatinine result is <0.2. Kidney Disease Stage > 90 mL/MIN 04/25/2018 2:33 PM [employer] HISTORICAL RESULTS Comment: NOTE; ??The GFR is [...] or on dialysis @ Est GFR (Cockcroft-G) 232 ml/MIN 04/25/2018 2:33 PM [employer] HISTORICAL RESULTS Comment: Estimated GFR(Cockroft-Gault)is used to calculate patient medication dosage Calcium 9.8 8.6 - 10.0 mg/dL 04/25/2018 2:33 PM [employer] HISTORICAL RESULTS Total Protein 8.4(H) 6.4 - 8.3 g/dL 04/25/2018 2:33 PM [employer] HISTORICAL RESULTS Albumin 4.9 3.5 - 5.2 g/dL 04/25/2018 2:33 PM [employer] HISTORICAL RESULTS Globulin 3.5 2.3 - 3.5 gm/dL 04/25/2018 2:33 PM [employer] [facility] [employer] HISTORICAL RESULTS Albumin/Globulin Ratio 1.4 1.1 - 1.8 04/25/2018 2:33 PM [employer] HISTORICAL RESULTS Total Bilirubin 1.6(H) 0.0 - 1.2 mg/dL 04/25/2018 2:33 PM PANTOGRAPH OPERATOR [facility] [employer] [facility] HISTORICAL RESULTS AST 19 0 - 40 U/L 04/25/2018 2:33 PM PANTOGRAPH OPERATOR [facility] HISTORICAL RESULTS ALT 26 0 - 41 U/L 04/25/2018 2:33 PM PANTOGRAPH OPERATOR [facility] HISTORICAL RESULTS Alkaline Phosphatase 90 40 - 129 U/L 04/25/2018 2:33 PM PANTOGRAPH OPERATOR [facility] HISTORICAL RESULTS 04/25/2018 2:06 PM PANTOGRAPH OPERATOR 04/25/2018 2:09 PM PANTOGRAPH OPERATOR us Ju Bustamante COLLECTIONS OFFICER LAB BLOOD ORDERABLES Final Resu lt [facility] HISTORICAL RESULTS * (ABNORMAL) CBC with auto differential (04/25/2018 2:06 PM PANTOGRAPH OPERATOR) WBC 14.8(H) 3.8 - 9.9 X10 3/ul 04/25/2018 2:22 PM [facility] [employer] [facility] HISTORICAL RESULTS RBC 5.98(H) 4.30 - 5.80 x10 6/ul 04/25/2018 2:22 PM [facility] [employer] [facility] HISTORICAL RESULTS Hemoglobin 16.6 13.0 - 17.5 g/dL 04/25/2018 2:22 PM [facility] [employer] [facility] HISTORICAL RESULTS Hct 50.2 38.9 - 50.3 % MCV 83.9 81.3 - 96.4 fl 04/25/2018 2:22 PM [facility] [employer] [facility] HISTORICAL RESULTS MCH 27.8 27.1 - 33.3 pg 04/25/2018 2:22 PM [facility] [employer] HISTORICAL RESULTS MCHC 33.1 32.3 - 35.7 g/dl 04/25/2018 2:22 PM [facility] [employer] HISTORICAL RESULTS RDW 12.7 11.1 - 14.9 % 04/25/2018 2:22 PM [facility] [employer] [facility] HISTORICAL RESULTS Plt Count 314 150 - 400 x10 3/ul 04/25/2018 2:22 PM [facility] [employer] [facility] HISTORICAL RESULTS MPV 10.5 9.1 - 12.3 fl 04/25/2018 2:22 PM [facility] [employer] [facility] HISTORICAL RESULTS Neut % 74.4 % Immature Gran % 0.4 % 8 2:22 PM [facility] HISTORICAL RESULTS Lymph % 17.4 % [place] % 7.4 % Eos % 0.1 % Baso % 0.3 % Absolute Neuts (auto) 11.0(H) 1.7 - 6.5 x10 3/ul Immature Gran # 0.1 0.0 - 0.1 x10 3/ul Absolute Lymphs (auto) 2.6 0.8 - 3.3 x10 3/ul Absolute Monos (auto) 1.1(H) 0.2 - 0.8 x10 3/ul Absolute Eos (auto) 0.0 0.0 - 0.5 x10 3/ul Absolute Basos (auto) 0.0 0.0 - 0.1 x10 3/ul Nucleat RBC Rel Count 0.0 #/100WBC Absolute Nucleated RBC 0.00 0.00 - 0.01 x10 3/ul Absolute Neutrophils 24414(H) 200 - 8000 /ul 04/25/2018 2:06 PM PANTOGRAPH OPERATOR 04/25/2018 2:09 PM PANTOGRAPH OPERATOR us Ju Bustamante COLLECTIONS OFFICER LAB BLOOD ORDERABLES Final Resu lt [facility] HISTORICAL RESULTS * (ABNORMAL) Urinalysis (04/25/2018 2:00 PM PANTOGRAPH OPERATOR) [facility] Ur Collection Type CLEAN CATCH 04/25/2018 2:25 PM PANTOGRAPH OPERATOR [facility] HISTORICAL RESULTS Urine Color YELLOW YELLOW 04/25/2018 2:25 PM PANTOGRAPH OPERATOR [facility] HISTORICAL RESULTS Urine Clarity CLEAR CLEAR 04/25/2018 2:25 PM PANTOGRAPH OPERATOR [facility] HISTORICAL RESULTS Urine Glucose (UA) NORMAL NORMAL mg/dL 04/25/2018 2:25 PM PANTOGRAPH OPERATOR [facility] HISTORICAL RESULTS Urine Bilirubin NEGATIVE NEGATIVE mg/dl Urine Ketones 5(H) NEGATIVE mg/dL Ur Specific [place] 1.026(H) 1.005 - 1.025 04/25/2018 2:25 PM PANTOGRAPH OPERATOR [facility] HISTORICAL RESULTS Urine Blood NEGATIVE NEGATIVE mg/dl 04/25/2018 2:25 PM PANTOGRAPH OPERATOR [facility] HISTORICAL RESULTS Urine pH 6.0 5.0 - 8.0 04/25/2018 2:25 PM PANTOGRAPH OPERATOR [facility] HISTORICAL RESULTS Urine Protein NEGATIVE NEGATIVE mg/dL Urine Urobilinogen 4(H) NORMAL mg/dL Urine Nitrite NEGATIVE NEGATIVE 04/25/2018 2:25 PM PANTOGRAPH OPERATOR [facility] HISTORICAL RESULTS Ur Leukocyte Esterase NEGATIVE NEGATIVE Luis/ul 04/25/2018 2:25 PM PANTOGRAPH OPERATOR [facility] HISTORICAL RESULTS Ur Microscopic Review Not Indicated 04/25/2018 2:00 PM PANTOGRAPH OPERATOR 04/25/2018 2:17 PM PANTOGRAPH OPERATOR Ju Bustamante COLLECTIONS OFFICER LAB URINE ORDERABLES Final Resu lt [facility] HISTORICAL RESULTS * (ABNORMAL) Drug Screen, Urine without Confirmation (04/25/2018 2:00 PM PANTOGRAPH OPERATOR) Ur Amphetamine Screen NEGATIVE NEGATIVE Comment: Cutoff Limit: ??1000 ng/mL ??Detects MDMA, MDA, d-Amphetamine, d-Methamphetamine, ?MBDB-HCl, MDEA and BDB-HCl Note: ??Positive results from this drug screen are unconfirmed. ??Unconfirmed screening results should not be used for non-medical purposes. Ur Barbiturates Screen NEGATIVE NEGATIVE Comment: Cutoff limit: ??200 ng/mL ??Detects Secobarbitol, Cyclopentobarbital, Aprobarbital, ?Butalbital, Allobarbital, Butabarbital, ?Pentobarbital, Amobarbital and Phenobarbital U Benzodiazepines Scrn NEGATIVE NEGATIVE Comment:Cutoff limit: 300 ng /mL U Cannabinoids Screen POSITIVE(H) NEGATIVE Comment: RESULT CALLED at: [id number] 04/25/18 by: [id number] to: DIANNE [id number] ?? CONFIRMATION on Positive result requested:N Cutoff Limit: 50 ng/mL U Cocaine Metab Screen NEGATIVE NEGATIVE Comment:Cutoff limit: 300 ng /mL Urine Opiates Screen NEGATIVE NEGATIVE Comment: Cutoff Limit: ??300 ng/mL Detects Morphine, Codeine, Ethyl Morphine, ?Diacetylmorphine, 6-Acetylmorphine, Dihydrocodeine, ?[id number] and Hydrocodone Ur Oxycodone Screen NEGATIVE NEGATIVE Comment:Cutoff Limit: 100 ng /mL Urine Creatinine/MAGNOLIA 293.6 mg/dL Comment:If Creatinine is < 4 0 mg/dL, recollection is suggested. 04/25/2018 2:00 PM PANTOGRAPH OPERATOR 04/25/2018 2:17 PM PANTOGRAPH OPERATOR Narrative [facility] HISTORICAL RESULTS - 04/25/2018 2:46 PM PANTOGRAPH OPERATOR Collected By cl us Ju Bustamante NP LAB URINE ORDERABLES Final Resu lt [facility] HISTORICAL RESULTS documented in this encounter Visit Diagnoses Diagnosis Cannabis use, unspecified with other cannabis-induced disorder (HCC) Vomiting Vomiting alone Elevated white blood cell count Leukocytosis, unspecified documented in this encounter
--- OUTSIDE RECORDS SUMMARY | 2024-05-26 02:47 | XMS_ITS | Encounter Summary ---
Author Organization [facility] Healthcare Address [address] [place] [address] Care Team Providers Care Building Components Designer Name Role Phone Osbaldo Hong MD Primary Care Provider +1- [phone] Encounter Details Date Type Department Care Team (Late st Contact Info) Description 02/03/2019 4:57 PM CDT - 02/03/2019 6:57 PM CDT Hospital Encounter [facility] Emergency Department [address] [place] [address] Unknown, Bud Agustin MD [facility] [address] [place] [id number] Discharge Disposition: Discharge to home or self care Social History Tobacco Use Types Packs/Day Years Used Date Smoking Tobacco: Never Smokeless Tobacco: Never Alcohol Use Standard Drinks/Week Comments Yes 0 (1 standard drink = 0.6 oz pur e alcohol) Sex and Gender Information Value Date Recorded Sex Assigned at Not on file Legal Sex Male 6:55 PM CHARACTER ACTOR Gender Identity Not on file Sexual Orientation Not on file documented as of this encounter Last Filed Vital Signs Vital Sign Reading Time Taken Comments Blood Pressure 123/60 02/03/2019 5:09 PM CDT Pulse 75 02/03/2019 5:09 PM CDT Temperature 36.7 ??C (98 ??F) 02/03/2019 5:09 PM CDT Respiratory Rate - - Oxygen Saturation 97% 02/03/2019 5:09 PM CDT Inhaled Oxygen Concentration - - Weight 126.9 kg (279 lb 12.3 oz) 02/03/2019 5:09 PM CDT Height 193 cm (6' 4 ) 02/03/2019 5:09 PM CDT Body Mass Index 34.05 02/03/2019 5:09 PM CDT documented in this encounter Medications [...] Diagnosis Comments CBC WITH AUTO DIFFERENTIAL Routine 02/03/2019 5:46 PM CDT LIPASE Routine 02/03/2019 5:46 PM CDT COMPREHENSIVE METABOLIC PANEL Routine 02/03/2019 5:46 PM CDT documented in this encounter Results * Lipase (02/03/2019 5:46 PM CDT) Lipase 13 13 - 60 U/L [facility] 02/03/2019 5:46 PM CDT 02/03/2019 5:49 PM CDT Narrative Resulting Agency Comment ER us Amrit Hdz NP LAB BLOOD ORDERABLES Faith l Result [address] [phone] * (ABNORMAL) Comprehensive metabolic panel (02/03/2019 5:46 PM CDT) Sodium 142 135 - 145 mmol/L [facility] Potassium 3.7 3.3 - 5.1 mmol/L [facility] Chloride 104 96 - 108 mmol/L [facility] Carbon Dioxide 21(L) 22 - 32 mmol/L [facility] Anion Gap 17(H) 7 - 16 [facility] Glucose 110(H) 70 - 100 mg/dL [facility] BUN 9 8 - 25 mg/dL [facility] Creatinine 0.8 0.5 - 1.3 mg/dL [facility] Comment: NOTE: Estimated GFR (Cockroft-Gault) will NOT be calculated unless patient Height and Weight were entered. Also, Kidney Disease Stage (GFR) and Estimated GFR (Cockroft-Gault) will NOT be calculated if Creatinine result is <0.2. Kidney Disease Stage >90 mL/MIN [facility] Comment: NOTE; ??The GFR is an [...] failure or on dialysis Est GFR (Cockcroft-G) 214 ml/MIN [facility] Comment: Estimated GFR(Cockroft-Gault)is used to calculate patient medication dosage Calcium 10.0 8.6 - 10.3 mg/dL [facility] Total Protein 7.7 6.4 - 8.3 g/dL [facility] Albumin 4.6 3.5 - 5.0 g/dL [facility] Globulin 3.1 2.3 - 3.5 gm/dL [facility] Albumin/Globulin Ratio 1.5 1.1 - 1.8 [facility] Total Bilirubin 1.2 0.0 - 1.2 mg/dL [facility] AST 17 0 - 40 U/L [facility] ALT 22 0 - 41 U/L [facility] Alkaline Phosphatase 74 40 - 129 U/L [facility] 02/03/2019 5:46 PM CDT 02/03/2019 5:49 PM CDT Narrative Resulting Agency Comment ER Amrit Hdz NP LAB BLOOD ORDERABLES Faith barrett Result [address] [phone] * (ABNORMAL) CBC with auto differential (02/03/2019 5:46 PM CDT) WBC 12.3(H) 3.8 - 9.9 X10 3/ul [facility] RBC 5.54 4.30 - 5.80 x10 6/ul [facility] Hemoglobin 15.5 13.0 - 17.5 g/dL [facility] Hct 44.6 38.9 - 50.3 % [facility] MCV 80.5(L) 81.3 - 96.4 fl [facility] MCH 28.0 27.1 - 33.3 pg [facility] MCHC 34.8 32.3 - 35.7 g/dl [facility] RDW 12.7 11.1 - 14.9 % [facility] Plt Count 254 150 - 400 x10 3/ul [facility] MPV 10.3 9.1 - 12.3 fl [facility] Neut % 79.4 % [facility] Immature Gran % 0.4 % [facility] Lymph % 14.9 % [facility] [place] % 4.5 % [facility] Eos % 0.5 % [facility] AUTO BASO % 0.3 % [facility] NEUTROPHIL ABS # 9.8(H) 1.7 - 6.5 x10 3/ul [facility] Immature Gran # 0.1 0.0 - 0.1 x10 3/ul [facility] Absolute Lymphs (auto) 1.8 0.8 - 3.3 x10 3/ul [facility] Absolute Monos (auto) 0.6 0.2 - 0.8 x10 3/ul [facility] Absolute Eos (auto) 0.1 0.0 - 0.5 x10 3/ul [facility] BASOPHIL ABS # 0.0 0.0 - 0.1 x10 3/ul [facility] Nucleat RBC Rel Count 0.0 #/100WBC [facility] NRBC abs 0.00 0.00 - 0.01 x10 3/ul [facility] Absolute Neutrophils 9,800(H) 200 - 8,000 /ul [facility] 02/03/2019 5:46 PM CDT 02/03/2019 5:49 PM CDT Narrative Resulting Agency Comment ER us Amrit Hdz PHYSICIST [facility] LAB BLOOD ORDERABLES Faith barrett Result [facility] [address] [place] [address], [facility] [phone] documented in this encounter Visit Diagnoses Not on filedocumented in this encounter Care Teams Building Components Designer Relationship Specialty Start Date End Date Osbaldo Hong MD [address] [place] [address] PCP - General 01/13/19 documented as of this encounter
--- OUTSIDE RECORDS SUMMARY | 2024-05-26 02:47 | XMS_ITS | Encounter Summary ---
Author Organization [facility] Healthcare Address [address] [place] [address] Care Team Providers Care Irrigation Equipment Installer Name Role Phone Osbaldo Hong MD Primary Care Provider +1- [phone] Encounter Details Date Type Department Care Team (Latest Contact Info) Description 07/24/2018 12:06 PM [employer]STR[employer] FOOTBALLER - 07/24/2018 3:51 PM [employer]STR[employer]IAN [employer]UL[employer] FOOTBALLER Hospital Encounter [address] [address] Bud Simon DO [address] [place] [address] Discharge Disposition: Discharge to home or self care Social History Tobacco Use Types Packs/Day Years Used Date Smoking Tobacco: Never Assessed Sex and Gender Information Value Date Recorded Sex Assigned at Not on file Legal Sex Male 6:55 PM AUSTRALIAN RULES FOOTBALLER Gender Identity Not on file Sexual Orientation Not on file documented as of this encounter Last Filed Vital Signs Vital Sign Reading Time Taken Comments Blood Pressure 115/56 07/24/2018 12:27 PM AUSTR[employer]IAN RULES FOOTBALLER Pulse 76 07/24/2018 12:27 PM AUSTR[employer]IAN RULES FOOTBALLER Temperature 36.5 ??C (97.7 ??F) 07/24/2018 1 2:27 PM [employer]STR[employer]IAN RUL[employer] FOOTBALLER Respiratory Rate - - Oxygen Saturation 99% 07/24/2018 12: 27 PM AUSTRALIAN RULES FOOTBALLER Inhaled Oxygen Concentration - - Weight 122.3 kg (269 lb 8.2 oz) 019 12:27 PM AUSTR[employer]IAN RULES FOOTBALLER Height 193 cm (6' 4 ) 07/24/2018 12:27 PM [employer]UL[employer] FOOTBALLER Body Mass Index 32.81 07/24/2018 12:27 PM AUSTR[employer]IAN RULES FOOTBALLER documented in this encounter Medications at Time [...] Diagnosis Comments CBC WITH AUTO DIFFERENTIAL Routine 07/24/2018 1:31 PM [employer]STR[employer]IAN [employer]UL[employer] FOOTBALLER LIPASE Routine 07/24/2018 1:31 PM [employer] FOOTBALLER COMPREHENSIVE METABOLIC PANEL Routine 07/24/2018 1:31 PM AUSTRALIAN RULES FOOTBALLER documented in this encounter Results * Lipase (07/24/2018 1:31 PM AUSTRALIAN RULES FOOTBALLER) Lipase 15 13 - 60 U/L 07/24/2018 2:00 PM [facility] [employer] [facility] HISTORICAL RESULTS 07/24/2018 1:31 PM AUSTRALIAN RULES FOOTBALLER 07/24/2018 1:34 PM AUSTRALIAN RULES FOOTBALLER us Bud Simon DO LAB BLOOD ORDERABLES Final Res ult [facility] HISTORICAL RESULTS * (ABNORMAL) Comprehensive metabolic panel (07/24/2018 1:31 PM AUSTRALIAN RULES FOOTBALLER) Sodium 137 135 - 145 mmol/L 07/24/2018 2:00 PM [facility] [employer] [facility] HISTORICAL RESULTS Potassium 3.8 3.3 - 5.1 mmol/L 07/24/2018 2:00 PM [facility] [employer] [facility] HISTORICAL RESULTS Chloride 100 96 - 108 mmol/L 07/24/2018 2:00 PM [facility] [employer] [facility] HISTORICAL RESULTS Carbon Dioxide 24 22 - 32 mmol/L 07/24/2018 2:00 PM [facility] [employer] [facility] HISTORICAL RESULTS Anion Gap 13 7 - 16 07/24/2018 2:00 PM [facility] [employer] [facility] HISTORICAL RESULTS Glucose 107(H) 70 - 100 mg/dL 07/24/2018 2:00 PM [facility] [employer] [facility] HISTORICAL RESULTS BUN 10 8 - 25 mg/dL 07/24/2018 2:00 PM [employer] HISTORICAL RESULTS Creatinine 0.7 0.5 - 1.3 mg/dL 07/24/2018 2:00 PM [facility] [facility] [employer] HISTORICAL RESULTS Comment: NOTE: Estimated GFR (Cockroft-Gault) will NOT be calculated unless patient Height and Weight were entered. Also, Kidney Disease Stage (GFR) and Estimated GFR (Cockroft-Gault) will NOT be calculated if Creatinine result is <0.2. Kidney Disease Stage > 90 mL/MIN 07/24/2018 2:00 PM [employer] HISTORICAL RESULTS Comment: NOTE; ??The GFR is [...] or on dialysis @ Est GFR (Cockcroft-G) 240 ml/MIN 07/24/2018 2:00 PM [employer] HISTORICAL RESULTS Comment: Estimated GFR(Cockroft-Gault)is used to calculate patient medication dosage Calcium 9.8 8.6 - 10.3 mg/dL 07/24/2018 2:00 PM [employer] HISTORICAL RESULTS Total Protein 7.8 6.4 - 8.3 g/dL 07/24/2018 2:00 PM [facility] [employer] HISTORICAL RESULTS Albumin 4.5 3.5 - 5.0 g/dL 07/24/2018 2:00 PM [employer] HISTORICAL RESULTS Globulin 3.3 2.3 - 3.5 gm/dL Albumin/Globulin Ratio 1.4 1.1 - 1.8 Total Bilirubin 1.0 0.0 - 1.2 mg/dL AST 17 0 - 40 U/L ALT 27 0 - 41 U/L Alkaline Phosphatase 97 40 - 129 U/L 07/24/2018 1:31 PM [employer]OTB[employer]ER 07/24/2018 1:34 PM [employer]STR[employer]ES FOOTBALLER us Bud Simon DO LAB BLOOD ORDERABLES Final Res ult [facility] HISTORICAL RESULTS * (ABNORMAL) CBC with auto differential (07/24/2018 1:31 PM AUSTRALIAN RULES FOOTBALLER) WBC 16.9(H) 3.8 - 9.9 X10 3/ul RBC 5.55 4.30 - 5.80 x10 6/ul Hemoglobin 15.9 13.0 - 17.5 g/dL Hct 46.2 38.9 - 50.3 % MCV 83.2 81.3 - 96.4 fl MCH 28.6 27.1 - 33.3 pg MCHC 34.4 32.3 - 35.7 g/dl RDW 12.5 11.1 - 14.9 % Plt Count 293 150 - 400 x10 3/ul MPV 10.5 9.1 - 12.3 fl Neut % 85.8 % Immature Gran % 0.6 % 9 1:37 PM [facility] HISTORICAL RESULTS Lymph % 8.9 % [place] % 4.4 % Eos % 0.1 % Baso % 0.2 % Absolute Neuts (auto) 14.5(H) 1.7 - 6.5 x10 3/ul Immature Gran # 0.1 0.0 - 0.1 x10 3/ul Absolute Lymphs (auto) 1.5 0.8 - 3.3 x10 3/ul Absolute Monos (auto) 0.8 0.2 - 0.8 x10 3/ul Absolute Eos (auto) 0.0 0.0 - 0.5 x10 3/ul Absolute Basos (auto) 0.0 0.0 - 0.1 x10 3/ul Nucleat RBC Rel Count 0.0 #/100WBC Absolute Nucleated RBC 0.00 0.00 - 0.01 x10 3/ul Absolute Neutrophils 44699(H) 200 - 8000 /ul 07/24/2018 1:37 PM AUSTRALIAN RULES FOOTBALLER [facility] HISTORICAL RESULTS 07/24/2018 1:31 PM AUSTRALIAN RULES FOOTBALLER 07/24/2018 1:34 PM AUSTRALIAN RULES FOOTBALLER us Bud Simon DO LAB BLOOD ORDERABLES Final Res ult [facility] HISTORICAL RESULTS documented in this encounter Visit Diagnoses Not on filedocumented in this encounter Care Teams Irrigation Equipment Installer Relationship Specialty Start Date End Date Osbaldo Hong MD PCP - General 07/23/18 01/05/19 documented as of this encounter
--- OUTSIDE RECORDS SUMMARY | 2024-05-26 02:47 | XMS_ITS | Encounter Summary ---
Author Organization [facility] Healthcare Address [address] [place] [address] Care Team Providers Care Shale Processing Technician Name Role Phone Osbaldo Hong MD Primary Care Provider +1- [phone] Encounter Details Date Type Department Care Team (Late st Contact Info) Description 04/12/2019 12:32 PM ASSISTANT NURSE MANAGER - 04/12/2019 2:30 PM ASSISTANT NURSE MANAGER Hospital Encounter [facility] Emergency Department [address] [place] [address] Unknown, Beulah Lipscomb, TRANSMISSION INSPECTOR [address] [place] [address] Discharge Disposition: Left without being seen Social History Tobacco Use Types Packs/Day Years Used Date Smoking Tobacco: Never Smokeless Tobacco: Never Alcohol Use Standard Drinks/Week Comments Yes 0 (1 standard drink = 0.6 oz pur e alcohol) Sex and Gender Information Value Date Recorded Sex Assigned at Not on file Legal Sex Male 6:55 PM ASSISTANT NURSE MANAGER Gender Identity Not on file Sexual Orientation Not on file documented as of this encounter Last Filed Vital Signs Vital Sign Reading Time Taken Comments Blood Pressure 126/88 04/12/2019 1:00 PM ASSISTANT NURSE MANAGER Pulse 95 04/12/2019 1:00 PM ASSISTANT NURSE MANAGER Temperature 36.7 ??C (98 ??F) 04/12/2019 1:00 PM ASSISTANT NURSE MANAGER Respiratory Rate - - Oxygen Saturation 98% 04/12/2019 1:00 PM ASSISTANT NURSE MANAGER Inhaled Oxygen Concentration - - Weight 126.1 kg (278 lb 0.1 oz) 04/12/2019 1:00 PM ASSISTANT NURSE MANAGER Height 185.4 cm (6' 1 ) 04/12/2019 1:00 PM ASSISTANT NURSE MANAGER Body Mass Index 36.68 04/12/2019 1:00 PM ASSISTANT NURSE MANAGER documented in this encounter Medications at [...] on filedocumented in this encounter Care Teams Shale Processing Technician Relationship Specialty Start Date End Date Osbaldo Hong MD [address] [place] [id number] PCP - General 01/13/19 documented as of this encounter
--- OUTSIDE RECORDS SUMMARY | 2024-05-26 02:47 | XMS_ITS | Encounter Summary ---
Author Organization [facility] Healthcare Address [address] [place] [address] Care Team Providers Care Coding Team Lead Name Role Phone Osbaldo Hong MD Primary Care Provider +1- [phone] Encounter Details Date Type Department Care Team (Late st Contact Info) Description 12/06/2018 8:54 AM CDT - 12/06/2018 11:44 AM CDT Hospital Encounter [facility] Emergency Department [address] [place] [address] Unknown, Deloris Gonzalez MD [address] [facility] [place] [address] Discharge Disposition: Discharge to home or self care Social History Tobacco Use Types Packs/Day Years Used Date Smoking Tobacco: Never Smokeless Tobacco: Never Alcohol Use Standard Drinks/Week Comments Yes 0 (1 standard drink = 0.6 oz pur e alcohol) Sex and Gender Information Value Date Recorded Sex Assigned at Not on file 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 Gender Identity Not on file Sexual Orientation Not on file documented as of this encounter Last Filed Vital Signs Vital Sign Reading Time Taken Comments Blood Pressure 143/74 12/06/2018 8:59 AM CDT Pulse 67 12/06/2018 8:59 AM CDT Temperature 36.3 ??C (97.4 ??F) 12/06/2018 8:59 AM CD T Respiratory Rate - - Oxygen Saturation 100% 12/06/2018 8:59 AM CDT Inhaled Oxygen Concentration - - Weight 124.2 kg (273 lb 13 oz) 12/06/2018 8:59 A M CDT Height 185.4 cm (6' 1 ) 12/06/2018 8:59 AM CDT Body Mass Index 36.13 12/06/2018 8:59 AM CDT documented in this encounter Medications [...] Diagnosis Comments URINALYSIS AND REFLEX TO MICROSCOPIC Routine 12/06/2018 10:07 AM CDT DRUGS OF ABUSE SCREEN, URINE WITHOUT CONFIRMATION Routine 12/06/2018 10:07 AM CDT CBC WITH AUTO DIFFERENTIAL Routine 12/06/2018 9:18 AM CDT LIPASE Routine 12/06/2018 9:18 AM CDT COMPREHENSIVE METABOLIC PANEL Routine 12/06/2018 9:18 AM CDT documented in this encounter Results * Drug Screen, Urine without Confirmation (12/06/2018 10:07 AM CDT) [facility] Amphetamines NOT DETECTED [facility] [employer] [facility] Comment: This assay uses 500 ng/mL as a cutoff for a positive result. Barbiturates NOT DETECTED [facility] [facility] Comment: This assay uses 200 ng/mL as a cutoff for a positive result. Benzodiazepines NOT DETECTED [facility] Comment: This assay uses 100 ng/mL as a cutoff for a positive result. Cannabinoids DETECTED [facility] Comment: This assay uses 50 ng/mL as a cutoff for a positive result. Cocaine NOT DETECTED [facility] Comment: This assay uses 150 ng/mL as a cutoff for a positive result. Opiates NOT DETECTED [facility] Comment: This assay uses 300 ng/mL as a cutoff for a positive result. Urine methadone NOT DETECTED [facility] Comment: This assay uses 300 ng/mL as a cutoff for a positive result. Urine phencyclidine plus NOT DETECTED [facility] Comment: This assay uses 25 ng/mL as a cutoff for a positive result. Oxycodone NOT DETECTED [facility] Comment: This assay uses 100 ng/mL as a cutoff for a positive result. Urine Creatinine/MAGNOLIA 83.0 mg/dL [facility] Comment: If Creatinine is < 40 mg/dL, recollection is suggested. 12/06/2018 10:0 7 AM CDT 12/06/2018 10:32 AM CDT Narrative [facility] - 12/06/2018 11:04 AM CDT Collected By pb Resulting Agency Comment ER us Deloris Rodriguez MD LAB URINE ORDERABLES Faith barrett Result [address] [phone] * (ABNORMAL) Urinalysis reflex to microscopic (12/06/2018 10:07 AM CDT) Ur Collection Type CLEAN CATCH [facility] Urine Color YELLOW YELLOW [facility] Urine Clarity [facility] Urine Glucose (UA) NORMAL NORMAL mg/dL [facility] Urine Bilirubin NEGATIVE NEGATIVE mg/dl [facility] Urine Ketones 20 NEGATIVE mg/dL [facility] Ur Specific Mcdaniels 1.014 1.005 - 1.025 [facility] Urine Blood NEGATIVE NEGATIVE mg/dl [facility] Urine pH 9.0(H) 5.0 - 8.0 [facility] Urine Protein NEGATIVE NEGATIVE mg/dL [facility] Urine Urobilinogen NORMAL NORMAL mg/dL [facility] Urine Nitrite NEGATIVE NEGATIVE [facility] Ur Leukocyte Esterase NEGATIVE NEGATIVE Luis/ul [facility] Ur Microscopic Review Not Indicated [facility] 12/06/2018 10:0 7 AM CDT 12/06/2018 10:32 AM CDT Narrative [facility] - 12/06/2018 10:43 AM CDT pb Clean catch Resulting Agency Comment ER Deloris Rodriguez MD LAB URINE ORDERABLES Faith l Result Performing Organization Address [facility]/ZIP Co de Phone Number [address] [phone] * Lipase (12/06/2018 9:18 AM CDT) Lipase 18 13 - 60 U/L [facility] 12/06/2018 9:18 AM CDT 12/06/2018 9:22 AM CDT Narrative Resulting Agency Comment ER Deloris Rodriguez MD LAB BLOOD ORDERABLES Faith l Result Performing Organization Address [facility] de Phone Number [address] [phone] * (ABNORMAL) Comprehensive metabolic panel (12/06/2018 9:18 AM CDT) Sodium 140 135 - 145 mmol/L [facility] Potassium 3.4 3.3 - 5.1 mmol/L [facility] Chloride 104 96 - 108 mmol/L [facility] Carbon Dioxide 21(L) 22 - 32 mmol/L [facility] Anion Gap 15 7 - 16 [facility] Glucose 123(H) 70 - 100 mg/dL [facility] BUN 14 8 - 25 mg/dL [facility] Creatinine 0.8 0.5 - 1.3 mg/dL [facility] Comment: NOTE: Estimated GFR (Cockroft-Gault) will NOT be calculated unless patient Height and Weight were entered. Also, Kidney Disease Stage (GFR) and Estimated GFR (Cockroft-Gault) will NOT be calculated if Creatinine result is <0.2. Kidney Disease Stage >90 mL/MIN [facility] Comment: NOTE; ??The GFR is an [...] on dialysis Est GFR (Cockcroft-G) 203 ml/MIN [facility] Comment: Estimated GFR(Cockroft-Gault)is used to calculate patient medication dosage Calcium 10.4(H) 8.6 - 10.3 mg/dL [facility] Total Protein 7.8 6.4 - 8.3 g/dL [facility] Albumin 4.8 3.5 - 5.0 g/dL [facility] Globulin 3.0 2.3 - 3.5 gm/dL [facility] Albumin/Globulin Ratio 1.6 1.1 - 1.8 [facility] Total Bilirubin 1.3(H) 0.0 - 1.2 mg/dL [facility] AST 19 0 - 40 U/L [facility] ALT 27 0 - 41 U/L [facility] Alkaline Phosphatase 83 40 - 129 U/L [facility] 12/06/2018 9:18 AM CDT 12/06/2018 9:22 AM CDT Narrative Resulting Agency Comment ER us Deloris Rodriguez MD LAB BLOOD ORDERABLES Faith barrett Result [facility] [address] [place] [address], [facility] [phone] * (ABNORMAL) CBC with auto differential (12/06/2018 9:18 AM CDT) WBC 14.1(H) 3.8 - 9.9 X10 3/ul [facility] RBC 5.77 4.30 - 5.80 x10 6/ul [facility] Hemoglobin 16.3 13.0 - 17.5 g/dL [facility] Hct 47.2 38.9 - 50.3 % [facility] MCV 81.8 81.3 - 96.4 fl [facility] MCH 28.2 27.1 - 33.3 pg [facility] MCHC 34.5 32.3 - 35.7 g/dl [facility] RDW 12.7 11.1 - 14.9 % [facility] Plt Count 244 150 - 400 x10 3/ul [facility] MPV 10.5 9.1 - 12.3 fl [facility] Neut % 76.3 % [facility] [employer] - [facility] Immature Gran % 0.6 % [facility] Lymph % 16.4 % [facility] E AST - English [employer] [place] % 5.9 % [facility] E AST - [employer] Eos % 0.4 % [facility] E AST - [facility] AUTO BASO % 0.4 % [facility] NEUTROPHIL ABS # 10.8(H) 1.7 - 6.5 x10 3/ul [facility] Immature Gran # 0.1 0.0 - 0.1 x10 3/ul [facility] Absolute Lymphs (auto) 2.3 0.8 - 3.3 x10 3/ul [facility] Absolute Monos (auto) 0.8 0.2 - 0.8 x10 3/ul [facility] Absolute Eos (auto) 0.1 0.0 - 0.5 x10 3/ul [facility] BASOPHIL ABS # 0.1 0.0 - 0.1 x10 3/ul [facility] Nucleat RBC Rel Count 0.0 #/100WBC [facility] NRBC abs 0.00 0.00 - 0.01 x10 3/ul [facility] Absolute Neutrophils 10,800(H) 200 - 8,000 /ul [facility] 12/06/2018 9:18 AM CDT 12/06/2018 9:22 AM CDT Narrative Resulting Agency Comment ER us Deloris Rodriguez MD LAB BLOOD ORDERABLES Faith l Result [address] [phone] documented in this encounter Visit Diagnoses Not on filedocumented in this encounter Care Teams Coding Team Lead Relationship Specialty Start Date End Date Osbaldo Hong MD PCP - General 07/23/18 01/05/19 documented as of this encounter
--- OUTSIDE RECORDS SUMMARY | 2024-05-26 02:47 | XMS_ITS | Encounter Summary ---
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
--- OUTSIDE RECORDS SUMMARY | 2024-05-26 02:48 | XMS_ITS | Encounter Summary ---
Author Organization [facility] Healthcare Address [address] [place] [address] Care Team Providers Care Casing Puller Name Role Phone Unavailable Primary Care Provider Unavailabl e Encounter Details Date Type Department Care Team (Latest Contact Info) Description 03/02/2018 5:31 PM CDT - 03/04/2018 4:32 PM CDT Hospital Encounter [facility] Everton Sánchez MD [address] [place] [address] Cyclical vomiting, intractable; Cannabis dependence with other cannabis-induced disorder (CMS/HCC); Helicobacter pylori (H. 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 Gender Identity Not on file Sexual Orientation Not on file documented as of this encounter Last Filed Vital Signs Vital Sign Reading Time Taken Comments Blood Pressure 169/93 03/02/2018 6:29 PM CDT Pulse 80 03/02/2018 6:29 PM CDT Temperature 36.9 ??C (98.4 ??F) 03/02/2018 6:29 PM CD T Respiratory Rate - - Oxygen Saturation 100% 03/02/2018 6:29 PM CDT Inhaled Oxygen Concentration - - Weight 123.2 kg (271 lb 9.8 oz) 03/02/2018 6:29 PM CDT Height 185.4 cm (6' 1 ) 03/02/2018 6:29 PM CDT Body Mass Index 35.83 03/02/2018 6:29 PM CDT documented in this encounter Plan of Treatment Not on file documented as of this encounter Procedures Procedure Name Priority Date/Time Associated Diagnosis Comments CBC WITH AUTO DIFFERENTIAL Routine 03/03/2018 5:18 AM CDT TSH Routine 03/03/2018 5:18 AM CDT MAGNESIUM Routine 03/03/2018 5:18 AM CDT COMPREHENSIVE METABOLIC PANEL Routine 03/03/2018 5:18 AM CDT UA WITH CULTURE REFLEX Routine 8 5:00 PM CDT DRUGS OF ABUSE SCREEN, URINE WITHOUT CONFIRMATION Routine 03/02/2018 5:00 PM CDT CBC WITH AUTO DIFFERENTIAL Routine 03/02/2018 3:24 PM CDT LIPASE Routine 03/02/2018 3:24 PM CDT COMPREHENSIVE METABOLIC PANEL Routine 03/02/2018 3:24 PM CDT documented in this encounter Results * TSH (03/03/2018 5:18 AM CDT) TSH 0.67 0.27 - 4.20 uIU/mL 03/03/2018 5:18 AM CDT 03/03/2018 6:04 AM CDT Everton Sánchez MD LAB BLOOD ORDERABLES Fi nal Result Performing Organization Address City/[facility] Co de Phone Number [facility] HISTORICAL RESULTS * Magnesium (03/03/2018 5:18 AM CDT) Magnesium 1.9 1.6 - 2.6 mg/dL Comment:Magnesium sulfate th erapy: 3.0-9.1 mg/dL 03/03/2018 5:18 AM CDT 03/03/2018 6:04 AM CDT Everton Sánchez MD LAB BLOOD ORDERABLES Fi nal Result [facility] HISTORICAL RESULTS * (ABNORMAL) Comprehensive metabolic panel (03/03/2018 5:18 AM CDT) Sodium 141 135 - 145 mmol/L Potassium 3.6 3.3 - 5.1 mmol/L Chloride 103 96 - 108 mmol/L Carbon Dioxide 22 22 - 32 mmol/L Anion Gap 16 7 - 16 Glucose 104(H) 70 - 100 mg/dL BUN 10 6 - 20 mg/dL Creatinine 0.5 0.5 - 1.3 mg/dL Comment: NOTE: Estimated [...] or on dialysis @ Est GFR (Cockcroft-G) 327 ml/MIN Comment: Estimated GFR(Cockroft-Gault)is used to calculate patient medication dosage Calcium 9.0 8.6 - 10.0 mg/dL Total Protein 6.5 6.4 - 8.3 g/dL Albumin 4.2 3.5 - 5.2 g/dL Globulin 2.3 2.3 - 3.5 gm/dL Albumin/Globulin Ratio 1.8 1.1 - 1.8 Total Bilirubin 0.9 0.0 - 1.2 mg/dL AST 14 0 - 40 U/L ALT 16 0 - 41 U/L Alkaline Phosphatase 76 40 - 129 U/L 03/03/2018 5:18 AM CDT 03/03/2018 6:04 AM CDT us Everton Sánchez MD LAB BLOOD ORDERABLES Fi nal Result [facility] HISTORICAL RESULTS * (ABNORMAL) CBC with auto differential (03/03/2018 5:18 AM CDT) WBC 12.8(H) 3.8 - 9.9 X10 3/ul 03/03/2018 6:13 AM CDT [facility] [employer] HISTORICAL RESULTS RBC 5.20 4.30 - 5.80 x10 6/ul 03/03/2018 6:13 AM CDT [facility] [employer] [facility] HISTORICAL RESULTS Hemoglobin 14.6 13.0 - 17.5 g/dL 03/03/2018 6:13 AM CD[address] [facility] HISTORICAL RESULTS Hct 44.1 38.9 - 50.3 % 03/03/2018 6:13 AM CDT [facility] HISTORICAL RESULTS MCV 84.8 81.3 - 96.4 fl 03/03/2018 6:13 AM CDT [facility] [employer] [facility] HISTORICAL RESULTS MCH 28.1 27.1 - 33.3 pg 03/03/2018 6:13 AM CDT [facility] [employer] HISTORICAL RESULTS MCHC 33.1 32.3 - 35.7 g/dl 03/03/2018 6:13 AM [employer] [facility] [employer] HISTORICAL RESULTS RDW 12.7 11.1 - 14.9 % 03/03/2018 6:13 AM [employer] [facility] [employer] HISTORICAL RESULTS Plt Count 230 150 - 400 x10 3/ul 03/03/2018 6:13 AM [employer] [facility] [employer] HISTORICAL RESULTS MPV 11.4 9.1 - 12.3 fl 03/03/2018 6:13 AM [employer] HISTORICAL RESULTS Neut % 80.7 % 03/03/2018 6:13 AM [employer] [facility] [employer] [facility] HISTORICAL RESULTS Immature Gran % 0.4 % 8 6:13 AM [employer] [facility] [employer] [facility] HISTORICAL RESULTS Lymph % 11.0 % 03/03/2018 6:13 AM CDT [facility] [employer] HISTORICAL RESULTS [place] % 7.6 % 03/03/2018 6:13 AM CDT [facility] [employer] [facility] HISTORICAL RESULTS Eos % 0.1 % 03/03/2018 6:13 AM CDT [facility] [employer] HISTORICAL RESULTS Baso % 0.2 % 03/03/2018 6:13 AM CDRobin Hood Foundation [facility] [employer] HISTORICAL RESULTS Absolute Neuts (auto) 10.3(H) 1.7 - 6.5 x10 3/ul 03/03/2018 6:13 AM CDT [facility] [employer] [facility] HISTORICAL RESULTS Immature Gran # 0.1 0.0 - 0.1 x10 3/ul Absolute Lymphs (auto) 1.4 0.8 - 3.3 x10 3/ul Absolute Monos (auto) 1.0(H) 0.2 - 0.8 x10 3/ul Absolute Eos (auto) 0.0 0.0 - 0.5 x10 3/ul Absolute Basos (auto) 0.0 0.0 - 0.1 x10 3/ul Nucleat RBC Rel Count 0.0 #/100WBC Absolute Nucleated RBC 0.00 0.00 - 0.01 x10 3/ul Absolute Neutrophils 56888(H) 200 - 8000 /ul 03/03/2018 5:18 AM CDT 03/03/2018 6:04 AM CDT Everton Sánchez MD LAB BLOOD ORDERABLES Fi nal Result [facility] HISTORICAL RESULTS * (ABNORMAL) Drug Screen, Urine without Confirmation (03/02/2018 5:00 PM CDT) Ur Amphetamine Screen NEGATIVE NEGATIVE Comment: Cutoff [...] Screen POSITIVE(H) NEGATIVE Comment: RESULT CALLED at: 1722 03/02/18 by: [id number] to: [email or web address] ?? CONFIRMATION on Positive result requested: Cutoff Limit: 50 ng/mL U Cocaine Metab Screen NEGATIVE NEGATIVE Comment:Cutoff limit: 300 ng /mL Urine Opiates Screen NEGATIVE NEGATIVE Comment: Cutoff Limit: ??300 ng/mL Detects Morphine, Codeine, Ethyl Morphine, ?Diacetylmorphine, 6-Acetylmorphine, Dihydrocodeine, ?[id number] and Hydrocodone Ur Oxycodone Screen NEGATIVE NEGATIVE Comment:Cutoff Limit: 100 ng /mL Urine Creatinine/MAGNOLIA 139.7 mg/dL Comment:If Creatinine is < 4 0 mg/dL, recollection is suggested. 03/02/2018 5:00 PM CDT 03/02/2018 5:04 PM CDT Narrative [facility] HISTORICAL RESULTS - 03/02/2018 5:17 PM CDT Collected By us Yannick Gray II, MD LAB URINE ORDERABLES Faith barrett Result [facility] HISTORICAL RESULTS * UA with Culture Reflex (03/02/2018 5:00 PM CDT) Ur Collection Type CLEAN CATCH Ur Culture Indicated? C&S NOT INDICATED Urine Color YELLOW YELLOW Urine Clarity CLEAR CLEAR Urine Glucose (UA) NORMAL NORMAL mg/dL Urine Bilirubin NEGATIVE NEGATIVE mg/dl Urine Ketones 20 NEGATIVE mg/dL Ur Specific Ma[place]in 1.015 1.005 - 1.025 Urine Blood NEGATIVE NEGATIVE mg/dl Urine pH 8.0 5.0 - 8.0 Urine Protein NEGATIVE NEGATIVE mg/dL Urine Urobilinogen NORMAL NORMAL mg/dL Urine Nitrite NEGATIVE NEGATIVE Ur Leukocyte Esterase NEGATIVE NEGATIVE Luis/ul Ur Microscopic Review Not Indicated 03/02/2018 5:00 PM CDT 03/02/2018 5:04 PM T Narrative [facility] HISTORICAL RESULTS - 03/02/2018 5:13 PM CDT Indication(s) for ordering ? Delirium/malaise/lethargy us Yannick Gray II, MD LAB URINE ORDERABLES Faith l Result Performing Organization Address [facility]/ZIP Co de Phone Number [facility] HISTORICAL RESULTS * Lipase (03/02/2018 3:24 PM CDT) Lipase 14 13 - 60 U/L 03/02/2018 3:24 PM CDT 03/02/2018 3:31 PM CDT us Ashtyn Gutierrez NP LAB BLOOD ORDERABLES Final R esult Performing Organization Address [facility] de Phone Number [facility] HISTORICAL RESULTS * (ABNORMAL) Comprehensive metabolic panel (03/02/2018 3:24 PM CDT) Sodium 144 135 - 145 mmol/L Potassium 3.8 3.3 - 5.1 mmol/L Chloride 104 96 - 108 mmol/L Carbon Dioxide 23 22 - 32 mmol/L Anion Gap 17(H) 7 - 16 Glucose 127(H) 70 - 100 mg/dL BUN 11 6 - 20 mg/dL Creatinine 0.7 0.5 [...] or on dialysis @ Est GFR (Cockcroft-G) 233 ml/MIN Comment: Estimated GFR(Cockroft-Gault)is used to calculate patient medication dosage Calcium 10.0 8.6 - 10.0 mg/dL Total Protein 7.8 6.4 - 8.3 g/dL Albumin 4.8 3.5 - 5.2 g/dL Globulin 3.0 2.3 - 3.5 gm/dL Albumin/Globulin Ratio 1.6 1.1 - 1.8 Total Bilirubin 1.2 0.0 - 1.2 mg/dL AST 20 0 - 40 U/L ALT 19 0 - 41 U/L Alkaline Phosphatase 90 40 - 129 U/L 03/02/2018 3:24 PM CDT 03/02/2018 3:31 PM CDT us Ashtyn Gutierrez FLEET SALES ASSOCIATE LAB BLOOD ORDERABLES Final R esult [facility] HISTORICAL RESULTS * (ABNORMAL) CBC with auto differential (03/02/2018 3:24 PM CDT) WBC 11.6(H) 3.8 - 9.9 X10 3/ul RBC 5.85(H) 4.30 - 5.80 x10 6/ul Hemoglobin 16.4 13.0 - 17.5 g/dL Hct 48.9 38.9 - 50.3 % MCV 83.6 81.3 - 96.4 fl MCH 28.0 27.1 - 33.3 pg MCHC 33.5 32.3 - 35.7 g/dl RDW 12.5 11.1 - 14.9 % Plt Count 263 150 - 400 x10 3/ul MPV 11.1 9.1 - 12.3 fl Neut % 82.0 % Immature Gran % 0.6 % 8 3:33 PM [facility] HISTORICAL RESULTS Lymph % 12.7 % [place] % 3.8 % Eos % 0.6 % Baso % 0.3 % Absolute Neuts (auto) 9.5(H) 1.7 - 6.5 x10 3/ul Immature Gran # 0.1 0.0 - 0.1 x10 3/ul Absolute Lymphs (auto) 1.5 0.8 - 3.3 x10 3/ul Absolute Monos (auto) 0.4 0.2 - 0.8 x10 3/ul Absolute Eos (auto) 0.1 0.0 - 0.5 x10 3/ul Absolute Basos (auto) 0.0 0.0 - 0.1 x10 3/ul Nucleat RBC Rel Count 0.0 #/100WBC Absolute Nucleated RBC 0.00 0.00 - 0.01 x10 3/ul Absolute Neutrophils 9600(H) 200 - 8000 /ul 03/02/2018 3:24 PM CDT 03/02/2018 3:31 PM CDT Ashtyn Gutierrez NP LAB BLOOD ORDERABLES Final R esult [facility] HISTORICAL RESULTS documented in this encounter Visit Diagnoses Diagnosis Cyclical vomiting, intractable Cannabis dependence with other cannabis-induced disorder (HCC) Helicobacter pylori (H. pylori) as the cause of diseases classified elsewhere documented in this encounter
--- OUTSIDE RECORDS SUMMARY | 2024-05-26 02:48 | XMS_ITS | Encounter Summary ---
Author Organization [facility] Healthcare Address [address] [place] [address] Care Team Providers Care Skin Former Name Role Phone Unavailable Primary Care Provider Unavailabl e Encounter Details Date Type Department Care Team (Latest Contact Info) Description 10/26/2017 8:21 AM CDT - 10/26/2017 11:48 AM CDT Hospital Encounter [facility], [place] [address] [facility] [address] [place] [address] Cannabis abuse with other cannabis-induced disorder (CMS/HCC); Nausea with vomiting; Other fci (current) drug therapy Social History Tobacco Use Types Packs/Day Years Used Date Smoking Tobacco: Never Assessed Sex and Gender Information Value Date Recorded Sex Assigned at Not on file Legal Sex Male 6:55 PM [employer] Gender Identity Not on file Sexual Orientation Not on file documented as of this encounter Last Filed Vital Signs Vital Sign Reading Time Taken Comments Blood Pressure 104/71 10/26/2017 8:25 AM CDT Pulse 84 10/26/2017 8:25 AM CDT Temperature 36.9 ??C (98.4 ??F) 10/26/2017 8:25 AM CD T Respiratory Rate - - Oxygen Saturation 100% 10/26/2017 8:25 AM CDT Inhaled Oxygen Concentration - - Weight 124.1 kg (273 lb 9.5 oz) 10/26/2017 8:25 AM CDT Height 185.4 cm (6' 1 ) 10/26/2017 8:25 AM CDT Body Mass Index 36.1 10/26/2017 8:25 AM CDT documented in this encounter Plan of Treatment Not on file documented as of this encounter Procedures Procedure Name Priority Date/Time Associated Diagnosis Comments DRUGS OF ABUSE SCREEN, URINE WITHOUT CONFIRMATION Routine 10/26/2017 10:15 AM CDT CBC WITH AUTO DIFFERENTIAL Routine 10/26/2017 9:04 AM CDT LIPASE Routine 10/26/2017 9:04 AM CDT AMYLASE Routine 10/26/2017 9:04 AM CDT COMPREHENSIVE METABOLIC PANEL Routine 10/26/2017 9:04 AM CDT URINALYSIS AND REFLEX TO MICROSCOPIC AND CULTURE Routine 10/26/2017 8:30 AM CDT US RUQ Routine 10/26/2017 12:00 AM CDT documented in this encounter Results * (ABNORMAL) Drug Screen, Urine without Confirmation (10/26/2017 10:15 AM CDT) Ur Amphetamine Screen NEGATIVE NEGATIVE 10/26/2017 10:59 AM CDT [facility] HISTORICAL RESULTS Comment: Cutoff Limit: ??1000 ng/mL ??Detects MDMA, MDA, d-Amphetamine, d-Methamphetamine, ?MBDB-HCl, MDEA and BDB-HCl Note: ??Positive results from this drug screen are unconfirmed. ??Unconfirmed screening results should not be used for non-medical purposes. Ur Barbiturates Screen NEGATIVE NEGATIVE 10/26/2017 10:59 AM CDT [facility] HISTORICAL RESULTS Comment: Cutoff limit: ??200 ng/mL ??Detects Secobarbitol, Cyclopentobarbital, Aprobarbital, ?Butalbital, Allobarbital, Butabarbital, ?Pentobarbital, Amobarbital and Phenobarbital U Benzodiazepines Scrn NEGATIVE NEGATIVE 10/26/2017 10:59 AM CDT [facility] HISTORICAL RESULTS Comment:Cutoff limit: 300 ng /mL U Cannabinoids Screen POSITIVE(H) NEGATIVE 10/26/2017 11:06 AM T [facility] HISTORICAL RESULTS Comment: RESULT CALLED at: 1104 10/26/17 by: [id number] to: SILVINO [id number] ?? CONFIRMATION on Positive result requested:N Cutoff Limit: 50 ng/mL U Cocaine Metab Screen NEGATIVE NEGATIVE 10/26/2017 10:59 AM T [facility] HISTORICAL RESULTS Comment:Cutoff limit: 300 ng /mL Urine Opiates Screen NEGATIVE NEGATIVE 10/26/2017 10:59 AM T [facility] HISTORICAL RESULTS Comment: Cutoff Limit: ??300 ng/mL Detects Morphine, Codeine, Ethyl Morphine, ?Diacetylmorphine, 6-Acetylmorphine, Dihydrocodeine, ?Iqaqakjl-2-hpyampwtpxs and Hydrocodone Ur Oxycodone Screen NEGATIVE NEGATIVE 10/26/2017 10:59 AM T [facility] HISTORICAL RESULTS Comment:Cutoff Limit: 100 ng /mL Urine Creatinine/MAGNOLIA 118.1 mg/dL 10/26/2017 10:59 AM T [facility] HISTORICAL RESULTS Comment:If Creatinine is < 4 0 mg/dL, recollection is suggested. 10/26/2017 10:1 5 AM CDT 10/26/2017 10:22 AM CDT Narrative [facility] HISTORICAL RESULTS - 10/26/2017 10:59 AM CDT Collected By K us Colton Bass MD LAB URINE ORDERABLES Faith l Result Performing Organization Address [facility] de Phone Number [facility] HISTORICAL RESULTS * Lipase (10/26/2017 9:04 AM CDT) Lipase 14 13 - 60 U/L 10/26/2017 9:39 AM CDT [facility] HISTORICAL RESULTS 10/26/2017 9:04 AM CDT 10/26/2017 9:07 AM CDT Colton Bass MD LAB BLOOD ORDERABLES Faith l Result Performing Organization Address [facility] Co de Phone Number [facility] HISTORICAL RESULTS * Amylase (10/26/2017 9:04 AM CDT) Amylase 29 28 - 100 U/L 10/26/2017 9:04 AM CDT 10/26/2017 9:07 AM CDT us Colton Bass MD LAB BLOOD ORDERABLES Faith barrett Result [facility] HISTORICAL RESULTS * (ABNORMAL) Comprehensive metabolic panel (10/26/2017 9:04 AM CDT) Sodium 139 135 - 145 mmol/L Potassium 3.5 3.3 - 5.1 mmol/L Chloride 100 96 - 108 mmol/L Carbon Dioxide 23 22 - 32 mmol/L Anion Gap 16 7 - 16 Glucose 97 70 - 100 mg/dL BUN 11 6 - 20 mg/dL Creatinine 0.7 0.5 - 1.3 mg/dL Comment: Above result [...] or on dialysis @ Est GFR (Cockcroft-G) 234 ml/MIN 10/26/2017 9:39 AM [facility] [employer] [facility] HISTORICAL RESULTS Comment: Estimated GFR(Cockroft-Gault)is used to calculate patient medication dosage Calcium 10.1(H) 8.6 - 10.0 mg/dL 10/26/2017 9:39 AM [facility] [employer] [facility] HISTORICAL RESULTS Total Protein 7.9 6.4 - 8.3 g/dL 10/26/2017 9:39 AM [facility] [employer] [facility] HISTORICAL RESULTS Albumin 5.0 3.5 - 5.2 g/dL 10/26/2017 9:39 AM [facility] [employer] [facility] HISTORICAL RESULTS Globulin 2.9 2.3 - 3.5 gm/dL 10/26/2017 9:39 AM [facility] [employer] [facility] HISTORICAL RESULTS Albumin/Globulin Ratio 1.7 1.1 - 1.8 10/26/2017 9:39 AM [facility] [employer] [facility] HISTORICAL RESULTS Total Bilirubin 2.6(H) 0.0 - 1.2 mg/dL 10/26/2017 9:39 AM [facility] [employer] HISTORICAL RESULTS AST 55(H) 0 - 40 U/L 10/26/2017 9:40 AM [facility] [employer] [facility] HISTORICAL RESULTS ALT 80(H) 0 - 41 U/L 10/26/2017 9:40 AM [facility] [employer] [facility] HISTORICAL RESULTS Alkaline Phosphatase 84 40 - 129 U/L 10/26/2017 9:39 AM [facility] [employer] [facility] HISTORICAL RESULTS 10/26/2017 9:04 AM CDT 10/26/2017 9:07 AM CDT us Colton Bass MD LAB BLOOD ORDERABLES Faith barrett Result [facility] [employer] HISTORICAL RESULTS * (ABNORMAL) CBC with auto differential (10/26/2017 9:04 AM CDT) WBC 10.7(H) 3.5 - 10.5 x10 3/ul 10/26/2017 9:11 AM CDT [facility] [employer] HISTORICAL RESULTS RBC 6.16(H) 4.11 - 5.71 x10 6/ul 10/26/2017 9:11 AM CDT [facility] [employer] HISTORICAL RESULTS Hemoglobin 17.1(H) 13.0 - 17.0 g/dL 10/26/2017 9:11 AM CDT [facility] Hct 49.6(H) 38.2 - 48.5 % 10/26/2017 9:11 AM CDT [facility] [employer] [facility] HISTORICAL RESULTS MCV 80.5 80.0 - 97.0 fl 10/26/2017 9:11 AM CDT [facility] [employer] [facility] HISTORICAL RESULTS MCH 27.8 27.0 - 31.2 pg 10/26/2017 9:11 AM CDT [facility] [employer] HISTORICAL RESULTS MCHC 34.5 31.8 - 35.4 g/dl 10/26/2017 9:11 AM CDT [facility] RES[facility] RDW 12.7 11.6 - 14.8 % 10/26/2017 9:11 AM CDT [facility] [employer] HISTORICAL RESULTS Plt Count 233 150 - 450 X10 3/ul 10/26/2017 9:11 AM CDT [facility] [employer] HISTORICAL RESULTS MPV 10.8(H) 7.4 - 10.4 fl 10/26/2017 9:11 AM CDT [facility] [employer] HISTORICAL RESULTS Neut % 70.7 37.0 - 85.0 % 10/26/2017 9:11 AM CDT [facility] [employer] HISTORICAL RESULTS Immature Gran % 0.5 0.0 - 3.0 % 10/26/2017 9:11 AM CDT [facility] [employer] [facility] HISTORICAL RESULTS Lymph % 19.9 5.0 - 45.0 % [place] % 8.0 3.0 - 15.0 % Eos % 0.6 0.0 - 7.0 % Baso % 0.3 0.0 - 2.0 % Absolute Neuts (auto) 7.6 1.7 - 8.7 x10 3/ul Immature Gran # 0.1 0.0 - 0.3 x10 3/ul Absolute Lymphs (auto) 2.1 0.2 - 4.6 x10 3/ul Absolute Monos (auto) 0.9 0.1 - 1.5 x10 3/ul Absolute Eos (auto) 0.1 0.0 - 0.7 x10 3/ul Absolute Basos (auto) 0.0 0.0 - 0.2 x10 3/ul Nucleat RBC Rel Count 0.0 0 - 3 #/100WBC Absolute Nucleated RBC 0.00 x10 3/ul Absolute Neutrophils 7700 200 - 8000 /ul 10/26/2017 9:04 AM CDT 10/26/2017 9:07 AM T us Colton Bass MD LAB BLOOD ORDERABLES Faith barrett Result [facility] HISTORICAL RESULTS * (ABNORMAL) Urinalysis reflex to microscopic and culture (10/26/2017 8:30 AM [facility]) Ur Collection Type CLEAN CATCH Ur Culture Indicated? C&S NOT INDICATED Urine Color RAHEL YELLOW Urine Clarity HAZY CLEAR Urine Glucose (UA) NORMAL NORMAL mg/dL Urine Bilirubin NEGATIVE NEGATIVE mg/dl Urine Ketones 20 NEGATIVE mg/dL Ur Specific [place] 1.027(H) 1.005 - 1.025 Urine Blood NEGATIVE NEGATIVE mg/dl Urine pH 5.0 5.0 - 8.0 Urine Protein 30(H) NEGATIVE mg/dL Urine Urobilinogen 4(H) NORMAL mg/dL Urine Nitrite NEGATIVE NEGATIVE Ur Leukocyte Esterase NEGATIVE NEGATIVE Luis/ul Ur Microscopic Review Indicated or Ordered Urine RBC 2 0 - 2 /HPF Urine WBC 6 0 - 2 /HPF Urine Mucus Marked /LPF Ur Squamous Epith Cells Rare /LPF 10/26/2017 8:30 AM CDT 10/26/2017 8:54 AM CDT Narrative [facility] HISTORICAL RESULTS - 10/26/2017 9:38 AM CDT Indication(s) for ordering ? Other - enter in comments ?? us Colton Bass MD LAB MICROBIOLOGY - GENERA L ORDERABLES Final Result [facility] HISTORICAL RESULTS * US RUQ (10/26/2017 12:00 AM CDT) Anatomical Region Laterality Modality Abdomen N/A Ultrasound 10/26/2017 Impressions 10/26/2017 9:42 AM CDT ??Essentially unremarkable study. THIS IS AN ELECTRONICALLY VERIFIED FINAL REPORT 10/26/2017 9:40 AM - Electronically signed by Germán Dickerson M.D. MD: D: ??10/26/2017 9:40 AM T: ??10/26/2017 9:40 AM Report ID: [id number] Reading Location: ??[id number] [EOD] Narrative 10/26/2017 9:42 AM CDT EXAM DESCRIPTION: ??US Abdomen Right Upper Quadrnt COMPLETED DATE/TIME: ??10/26/2017 9:31 am REASON FOR STUDY: ??17-year-old male with nausea/vomiting for 4 days. TECHNIQUE: ??Ultrasound of the right upper quadrant of the abdomen was performed with grayscale and color doppler. COMPARISON: ??CT abdomen/pelvis 09/25/2017 FINDINGS: Performing sonographic electrical/instrument technician notes difficult exam due to patient body habitus/overlying bowel/patient's inability to hold breath adequately. PANCREAS:Visualized portions of the pancreas are within normal limits. ??The pancreatic tail is obscured due to bowel gas. LIVER: The liver appears normal in echotexture. ??The liver is upper limits of normal in size, measuring 18.6 cm in length. ??No focal lesion identified. The main portal vein is patent with antegrade flow. GALLBLADDER: The gallbladder appears unremarkable. ??No cholelithiasis. ??No gallbladder wall thickening or pericholecystic fluid. Sonographic Vasquez's Sign reported as negative. BILIARY: There is no intrahepatic or extrahepatic biliary ductal dilatation. Common bile duct measures 0.5 cm in diameter. RIGHT KIDNEY: Normal size. Normal echogenicity. No solid mass or cyst. ??No hydronephrosis. Measures 10.5 cm in length. OTHER: No other significant findings. Procedure Note Provider, MD Sherri - 10/12/2020 EXAM DESCRIPTION: US Abdomen Right Upper Quadrnt COMPLETED DATE/TIME: 10/26/2017 9:31 am REASON FOR STUDY: 17-year-old male with nausea/vomiting for 4 days. TECHNIQUE: Ultrasound of the right upper quadrant of the abdomen was performed with grayscale and color doppler. COMPARISON: CT abdomen/pelvis 09/25/2017 FINDINGS: Performing sonographic electrical/instrument technician notes difficult exam due to patient body habitus/overlying bowel/patient's inability to hold breath adequately. PANCREAS:Visualized portions of the pancreas are within normal limits.The pancreatic tail is obscured due to bowel gas. LIVER: The liver appears normal in echotexture. The liver is upper limitsof normal in size, measuring 18.6 cm in length. No focal lesion identified.The main portal vein is patent with antegrade flow. GALLBLADDER: The gallbladder appears unremarkable. No cholelithiasis. No gallbladder wall thickening or pericholecystic fluid. Sonographic Vasquez's Sign reported as negative. BILIARY: There is no intrahepatic or extrahepatic biliary ductaldilatation. Common bile duct measures 0.5 cm in diameter. RIGHT KIDNEY: Normal size. Normal echogenicity. No solid mass or cyst. No hydronephrosis. Measures 10.5 cm in length. OTHER: No other significant findings. IMPRESSION: Essentially unremarkable study. THIS IS AN ELECTRONICALLY VERIFIED FINAL REPORT 10/26/2017 9:40 AM - Electronically signed by Germán Dickerson M.D., MD: Report ID: [id number] Reading Location: [place] [id number] [EOD] us Colton Bass MD IMG US PROCEDURES Final R esult documented in this encounter Visit Diagnoses Diagnosis Cannabis abuse with other cannabis-induced disorder (HCC) Nausea with vomiting Other fci (current) drug therapy documented in this encounter
--- OUTSIDE RECORDS SUMMARY | 2024-05-26 02:48 | XMS_ITS | Encounter Summary ---
Author Organization [facility] Healthcare Address [address] [place] [id number] Care Team Providers Care Business Banking Officer Name Role Phone Unavailable Primary Care Provider Unavailabl e Encounter Details Date Type Department Care Team (Latest Contact Info) Description 12/16/2017 12:46 PM CDT - 12/16/2017 3:31 PM CDT Hospital Encounter [facility] IdLinda varner Cannabis use, unspecified with other cannabis-induced disorder (CMS/HCC); Cyclical vomiting, not intractable Social History Tobacco Use Types Packs/Day Years Used Date Smoking Tobacco: Never Assessed Sex and Gender Information Value Date Recorded Sex Assigned at Not on file Legal Sex Male 6:55 PM [employer] Gender Identity Not on file Sexual Orientation Not on file documented as of this encounter Last Filed Vital Signs Vital Sign Reading Time Taken Comments Blood Pressure 132/55 12/16/2017 12:48 PM CDT Pulse 56 12/16/2017 12:48 PM CDT Temperature 36.6 ??C (97.9 ??F) 12/16/2017 1 2:48 PM CDT Respiratory Rate - - Oxygen Saturation 100% 12/16/2017 12: 48 PM CDT Inhaled Oxygen Concentration - - Weight 122.6 kg (270 lb 4.6 oz) 018 12:48 PM CDT Height 180.3 cm (5' 11 ) 12/16/2017 12: 48 PM CDT Body Mass Index 37.7 12/16/2017 12:48 PM CDT documented in this encounter Plan of Treatment Not on file documented as of this encounter Procedures Procedure Name Priority Date/Time Associated Diagnosis Comments URINALYSIS AND REFLEX TO MICROSCOPIC AND CULTURE Routine 12/16/2017 1:22 PM CDT CBC WITH AUTO DIFFERENTIAL Routine 12/16/2017 1:08 PM CDT LIPASE Routine 12/16/2017 1:08 PM CDT COMPREHENSIVE METABOLIC PANEL Routine 12/16/2017 1:08 PM CDT documented in this encounter Results * (ABNORMAL) Urinalysis reflex to microscopic and culture (12/16/2017 1:22 PM CDT) Ur Collection Type CLEAN CATCH 12/16/2017 2:04 PM [facility] HISTORICAL RESULTS Ur Culture Indicated? C&S NOT INDICATED 12/16/2017 2:04 PM [facility] HISTORICAL RESULTS Urine Color RAHEL YELLOW 12/16/2017 2:04 PM [facility] HISTORICAL RESULTS Urine Clarity HAZY CLEAR 12/16/2017 2:04 PM [facility] HISTORICAL RESULTS Urine Glucose (UA) NORMAL NORMAL mg/dL 12/16/2017 2:04 PM [facility] HISTORICAL RESULTS Urine Bilirubin NEGATIVE NEGATIVE mg/dl 12/16/2017 2:04 PM [facility] HISTORICAL RESULTS Urine Ketones 20 NEGATIVE mg/dL 12/16/2017 2:04 PM [facility] HISTORICAL RESULTS Ur Specific [place] 1.028(H) 1.005 - 1.025 12/16/2017 2:04 PM [facility] HISTORICAL RESULTS Urine Blood NEGATIVE NEGATIVE mg/dl 12/16/2017 2:04 PM [facility] HISTORICAL RESULTS Urine pH 6.0 5.0 - 8.0 12/16/2017 2:04 PM [facility] HISTORICAL RESULTS Urine Protein 30(H) NEGATIVE mg/dL 12/16/2017 2:04 PM [facility] HISTORICAL RESULTS Urine Urobilinogen 2(H) NORMAL mg/dL 12/16/2017 2:04 PM [facility] HISTORICAL RESULTS Urine Nitrite NEGATIVE NEGATIVE 12/16/2017 2:04 PM [facility] HISTORICAL RESULTS Ur Leukocyte Esterase NEGATIVE NEGATIVE Luis/ul 12/16/2017 2:04 PM [facility] HISTORICAL RESULTS Ur Microscopic Review Indicated or Ordered 12/16/2017 2:04 PM [facility] HISTORICAL RESULTS Urine RBC 3 0 - 2 /HPF 12/16/2017 2:04 PM [facility] HISTORICAL RESULTS Urine WBC 3 0 - 2 /HPF 12/16/2017 2:04 PM [facility] HISTORICAL RESULTS Urine Mucus Marked /LPF 12/16/2017 1:22 PM CDT 12/16/2017 1:40 PM CDT Narrative [facility] HISTORICAL RESULTS - 12/16/2017 2:04 PM CDT Indication(s) for ordering ? Pain-pelv/flank/suprapubc ?? us Sandra Bell PORT CDL A DRIVER LAB MICROBIOLOGY - GENERAL O RDERABLES Final Result Performing Organization Address [facility] Co de Phone Number [facility] HISTORICAL RESULTS * Lipase (12/16/2017 1:08 PM CDT) Lipase 15 13 - 60 U/L 12/16/2017 1:08 PM CDT 12/16/2017 1:16 PM CDT Sandra Bell PORT CDL A DRIVER LAB BLOOD ORDERABLES Final R esult Performing Organization Address [facility] Co de Phone Number [facility] HISTORICAL RESULTS * (ABNORMAL) Comprehensive metabolic panel (12/16/2017 1:08 PM CDT) Sodium 141 135 - 145 mmol/L Potassium 3.7 3.3 - 5.1 mmol/L Chloride 102 96 - 108 mmol/L Carbon Dioxide 23 22 - 32 mmol/L Anion Gap 16 7 - 16 Glucose 119(H) 70 - 100 mg/dL BUN 15 6 - 20 mg/dL Creatinine 0.8 0.5 - 1.3 mg/dL 12/16/2017 1:50 PM [facility] HISTORICAL RESULTS Comment: NOTE: Estimated GFR (Cockroft-Gault) will NOT be calculated unless patient Height and Weight were entered. Also, Kidney Disease Stage (GFR) and Estimated GFR (Cockroft-Gault) will NOT be calculated if Creatinine result is <0.2. Kidney Disease Stage > 90 mL/MIN 12/16/2017 1:50 PM [facility] HISTORICAL RESULTS Comment: NOTE; ??The GFR is [...] or on dialysis @ Est GFR (Cockcroft-G) 198 ml/MIN 12/16/2017 1:50 PM [facility] HISTORICAL RESULTS Comment: Estimated GFR(Cockroft-Gault)is used to calculate patient medication dosage Calcium 10.3(H) 8.6 - 10.0 mg/dL 12/16/2017 1:50 PM [facility] HISTORICAL RESULTS Total Protein 8.2 6.4 - 8.3 g/dL 12/16/2017 1:50 PM [facility] HISTORICAL RESULTS Albumin 5.0 3.5 - 5.2 g/dL 12/16/2017 1:50 PM [facility] HISTORICAL RESULTS Globulin 3.2 2.3 - 3.5 gm/dL Albumin/Globulin Ratio 1.6 1.1 - 1.8 Total Bilirubin 1.2 0.0 - 1.2 mg/dL AST 18 0 - 40 U/L ALT 29 0 - 41 U/L Alkaline Phosphatase 81 40 - 129 U/L 12/16/2017 1:08 PM CDT 12/16/2017 1:16 PM CDT us Sandra Bell PORT CDL A DRIVER LAB BLOOD ORDERABLES Final R esult [facility] HISTORICAL RESULTS * (ABNORMAL) CBC with auto differential (12/16/2017 1:08 PM CDT) WBC 13.3(H) 3.5 - 10.5 x10 3/ul RBC 5.72(H) 4.11 - 5.71 x10 6/ul Hemoglobin 16.3 13.0 - 17.0 g/dL Hct 47.8 38.2 - 48.5 % MCV 83.6 80.0 - 97.0 fl MCH 28.5 27.0 - 31.2 pg MCHC 34.1 31.8 - 35.4 g/dl 12/16/2017 1:21 PM [facility] HISTORICAL RESULTS RDW 12.8 11.6 - 14.8 % 12/16/2017 1:21 PM [facility] HISTORICAL RESULTS Plt Count 294 150 - 450 X10 3/ul 12/16/2017 1:21 PM [facility] HISTORICAL RESULTS MPV 11.0(H) 7.4 - 10.4 fl 12/16/2017 1:21 PM [facility] HISTORICAL RESULTS Neut % 78.5 37.0 - 85.0 % 12/16/2017 1:21 PM [facility] HISTORICAL RESULTS Immature Gran % 0.8 0.0 - 3.0 % 12/16/2017 1:21 PM [facility] HISTORICAL RESULTS Lymph % 15.4 5.0 - 45.0 % 12/16/2017 1:21 PM [facility] HISTORICAL RESULTS [place] % 4.7 3.0 - 15.0 % 12/16/2017 1:21 PM [facility] HISTORICAL RESULTS Eos % 0.3 0.0 - 7.0 % 12/16/2017 1:21 PM [facility] HISTORICAL RESULTS Baso % 0.3 0.0 - 2.0 % 12/16/2017 1:21 PM [facility] HISTORICAL RESULTS Absolute Neuts (auto) 10.5(H) 1.7 - 8.7 x10 3/ul 12/16/2017 1:21 PM [facility] HISTORICAL RESULTS Immature Gran # 0.1 0.0 - 0.3 x10 3/ul 12/16/2017 1:21 PM [facility] HISTORICAL RESULTS Absolute Lymphs (auto) 2.1 0.2 - 4.6 x10 3/ul 12/16/2017 1:21 PM [facility] HISTORICAL RESULTS Absolute Monos (auto) 0.6 0.1 - 1.5 x10 3/ul 12/16/2017 1:21 PM [facility] HISTORICAL RESULTS Absolute Eos (auto) 0.0 0.0 - 0.7 x10 3/ul 12/16/2017 1:21 PM [facility] HISTORICAL RESULTS Absolute Basos (auto) 0.0 0.0 - 0.2 x10 3/ul 12/16/2017 1:21 PM [facility] HISTORICAL RESULTS Nucleat RBC Rel Count 0.0 0 - 3 #/100WBC Absolute Nucleated RBC 0.00 x10 3/ul Absolute Neutrophils 35985(H) 200 - 8000 /ul 12/16/2017 1:08 PM CDT 12/16/2017 1:16 PM CDT us Sandra Bell PORT CDL A DRIVER LAB BLOOD ORDERABLES Final R esult [facility] HISTORICAL RESULTS documented in this encounter Visit Diagnoses Diagnosis Cannabis use, unspecified with other cannabis-induced disorder (HCC) Cyclical vomiting, not intractable documented in this encounter
--- OUTSIDE RECORDS SUMMARY | 2024-05-26 02:48 | XMS_ITS | Encounter Summary ---
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 Social History Tobacco Use Types Packs/Day Years Used Date Smoking Tobacco: Never Assessed Sex and Gender Information Value Date Recorded Sex Assigned at Not on file Legal Sex 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 Gender Identity Not on file Sexual Orientation Not on file documented as of this encounter Last Filed Vital Signs Vital Sign Reading Time Taken Comments Blood Pressure 118/64 10/24/2017 9:16 AM CDT Pulse 73 10/24/2017 9:16 AM CDT Temperature 37.1 ??C (98.7 ??F) 10/24/2017 9:16 AM CD T Respiratory Rate - - Oxygen Saturation 99% 10/24/2017 9:16 AM CDT Inhaled Oxygen Concentration - - Weight 125.3 kg (276 lb 3.8 oz) 10/24/2017 9:16 AM CDT Height 185.4 cm (6' 1 ) 10/24/2017 9:16 AM CDT Body Mass Index 36.45 10/24/2017 9:16 AM CDT documented in this encounter Plan of Treatment Not on file documented as of this encounter Procedures Procedure Name Priority Date/Time Associated Diagnosis Comments CBC WITH AUTO DIFFERENTIAL Routine 10/24/2017 9:25 AM CDT LIPASE Routine 10/24/2017 9:25 AM CDT COMPREHENSIVE METABOLIC PANEL Routine 10/24/2017 9:25 AM CDT documented in this encounter Results * Lipase (10/24/2017 9:25 AM CDT) Lipase 15 13 - 60 U/L 10/24/2017 9:25 AM CDT 10/24/2017 9:36 AM CDT us Sabine Das MD LAB BLOOD ORDERAB LES Final Result [facility] HISTORICAL RESULTS * (ABNORMAL) Comprehensive metabolic panel (10/24/2017 9:25 AM CDT) Pathologist [facility] Sodium 143 135 - 145 mmol/L Potassium 3.7 3.3 - 5.1 mmol/L Chloride 106 96 - 108 mmol/L Carbon Dioxide 22 22 - 32 mmol/L Anion Gap 15 7 - 16 Glucose 108(H) 70 - 100 mg/dL BUN 16 6 [...] or on dialysis @ Est GFR (Cockcroft-G) 235 ml/MIN 10/24/2017 10:05 AM [facility] [employer] [facility] Comment: Estimated GFR(Cockroft-Gault)is used to calculate patient medication dosage Calcium 10.1(H) 8.6 - 10.0 mg/dL 10/24/2017 10:05 AM [facility] [employer] [facility] Total Protein 7.6 6.4 - 8.3 g/dL 10/24/2017 10:05 AM [facility] [employer] [facility]IST[facility] RESULTS Albumin 4.8 3.5 - 5.2 g/dL 10/24/2017 10:05 AM [facility] [employer] [facility]IST[facility] RESULTS Globulin 2.8 2.3 - 3.5 gm/dL 10/24/2017 10:05 AM [facility] [employer] [facility] HIST[facility] RESULTS Albumin/Globulin Ratio 1.7 1.1 - 1.8 10/24/2017 10:05 AM [facility] [employer] [facility] HISTOR[facility] RESULTS Total Bilirubin 1.3(H) 0.0 - 1.2 mg/dL 10/24/2017 10:05 AM [facility] [employer] [facility]IST[facility] RES[facility] AST 25 0 - 40 U/L ALT 36 0 - 41 U/L 10/24/2017 10:05 AM CD[facility] Alkaline Phosphatase 79 40 - 129 U/L 10/24/2017 10:05 AM CDT [facility] 10/24/2017 9:25 AM CDT 10/24/2017 9:36 AM CDT us Sabine Das MD LAB BLOOD ORDERAB LES Final Result [facility] HISTORICAL RESULTS * (ABNORMAL) CBC with auto differential (10/24/2017 9:25 AM CDT) WBC 13.3(H) 3.5 - 10.5 x10 3/ul 10/24/2017 9:38 AM CDT [facility] RBC 6.03(H) 4.11 - 5.71 x10 6/ul 10/24/2017 9:38 AM CDT [facility] Hemoglobin 16.9 13.0 - 17.0 g/dL 10/24/2017 9:38 AM T [facility] Hct 48.8(H) 38.2 - 48.5 % 10/24/2017 9:38 AM T [facility] MCV 80.9 80.0 - 97.0 fl 10/24/2017 9:38 AM CDT [facility] MCH 28.0 27.0 - 31.2 pg 10/24/2017 9:38 AM CDT [facility] MCHC 34.6 31.8 - 35.4 g/dl 10/24/2017 9:38 AM CDT [facility] RDW 13.0 11.6 - 14.8 % 10/24/2017 9:38 AM CDT [facility] Plt Count 255 150 - 450 X10 3/ul 10/24/2017 9:38 AM T [facility] MPV 11.3(H) 7.4 - 10.4 fl 10/24/2017 9:38 AM T [facility] Neut % 73.3 37.0 - 85.0 % Immature Gran % 0.4 0.0 - 3.0 % Lymph % 18.9 5.0 - 45.0 % Alcorn % 6.9 3.0 - 15.0 % Eos % 0.3 0.0 - 7.0 % Baso % 0.2 0.0 - 2.0 % Absolute Neuts (auto) 9.7(H) 1.7 - 8.7 x10 3/ul Immature Gran # 0.1 0.0 - 0.3 x10 3/ul Absolute Lymphs (auto) 2.5 0.2 - 4.6 x10 3/ul Absolute Monos (auto) 0.9 0.1 - 1.5 x10 3/ul Absolute Eos (auto) 0.0 0.0 - 0.7 x10 3/ul Absolute Basos (auto) 0.0 0.0 - 0.2 x10 3/ul Nucleat RBC Rel Count 0.0 0 - 3 #/100WBC Absolute Nucleated RBC 0.00 x10 3/ul Absolute Neutrophils 9800(H) 200 - 8000 /ul 10/24/2017 9:25 AM CDT 10/24/2017 9:36 AM CDT us Sabine Das MD LAB BLOOD ORDERAB LES Final Result Performing Organization Address City/State/[facility] Co de Phone Number [facility] HISTORICAL RESULTS documented in this encounter Visit Diagnoses Diagnosis Vomiting Vomiting alone Cannabis abuse, uncomplicated Nicotine dependence, uncomplicated Other custodial (current) drug therapy documented in this encounter
--- OUTSIDE RECORDS SUMMARY | 2024-05-26 02:48 | XMS_ITS | Encounter Summary ---
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 Social History Tobacco Use Types Packs/Day Years Used Date Smoking Tobacco: Never Assessed Sex and Gender Information Value Date Recorded Sex Assigned at Not on file Legal Sex Male 6:55 PM [employer]OC[employer] Gender Identity Not on file Sexual Orientation Not on file documented as of this encounter Last Filed Vital Signs Vital Sign Reading Time Taken Comments Blood Pressure 160/91 10/29/2017 9:03 AM CDT Pulse 74 10/29/2017 9:03 AM CDT Temperature 36.6 ??C (97.8 ??F) 10/29/2017 9:03 AM CD T Respiratory Rate - - Oxygen Saturation 100% 10/29/2017 9:03 AM CDT Inhaled Oxygen Concentration - - Weight 123.1 kg (271 lb 6.2 oz) 10/29/2017 9:03 AM CDT Height 185.4 cm (6' 1 ) 10/29/2017 9:03 AM CDT Body Mass Index 35.81 10/29/2017 9:03 AM CDT documented in this encounter Plan of Treatment Not on file documented as of this encounter Procedures Procedure Name Priority Date/Time Associated Diagnosis Comments CBC WITH AUTO DIFFERENTIAL Routine 10/29/2017 9:27 AM CDT LIPASE Routine 10/29/2017 9:27 AM CDT AMYLASE Routine 10/29/2017 9:27 AM CDT COMPREHENSIVE METABOLIC PANEL Routine 10/29/2017 9:27 AM CDT URINALYSIS AND REFLEX TO MICROSCOPIC AND CULTURE Routine 10/29/2017 9:20 AM CDT DRUGS OF ABUSE SCREEN, URINE WITHOUT CONFIRMATION Routine 10/29/2017 9:[address] ABDOMEN PELVIS W CONTRAST Routine 10/29/2017 12:[address] HEAD WO CONTRAST Routine 10/29/2017 1 2:00 AM CDT documented in this encounter Results * Lipase (10/29/2017 9:27 AM CDT) Lipase 16 13 - 60 U/L 10/29/2017 10:04 AM T [facility] HISTORICAL RESULTS 10/29/2017 9:27 AM CDT 10/29/2017 9:32 AM CDT us Colton Bass MD LAB BLOOD ORDERABLES Faith l Result [facility] HISTORICAL RESULTS * (ABNORMAL) Comprehensive metabolic panel (10/29/2017 9:27 AM CDT) Sodium 142 135 - 145 mmol/L 10/29/2017 10:04 AM T [facility] HISTORICAL RESULTS Potassium 3.4 3.3 - 5.1 mmol/L 10/29/2017 10:04 AM T [facility] HISTORICAL RESULTS Chloride 101 96 - 108 mmol/L 10/29/2017 10:04 AM T [facility] HISTORICAL RESULTS Carbon Dioxide 25 22 - 32 mmol/L 10/29/2017 10:04 AM T [facility] HISTORICAL RESULTS Anion Gap 16 7 - 16 10/29/2017 10:04 AM T [facility] HISTORICAL RESULTS Glucose 118(H) 70 - 100 mg/dL 10/29/2017 10:04 AM [facility] HISTORICAL RESULTS BUN 11 6 - 20 mg/dL 10/29/2017 10:04 AM [facility] HISTORICAL RESULTS Creatinine 0.8 0.5 - 1.3 mg/dL 10/29/2017 10:04 AM [facility] HISTORICAL RESULTS Comment: NOTE: Estimated GFR (Cockroft-Gault) will NOT be calculated unless patient Height and Weight were entered. Also, Kidney Disease Stage (GFR) and Estimated GFR (Cockroft-Gault) will NOT be calculated if Creatinine result is <0.2. Kidney Disease Stage > 90 mL/MIN 10/29/2017 10:04 AM [facility] HISTORICAL RESULTS Comment: NOTE; ??The GFR is [...] or on dialysis @ Est GFR (Cockcroft-G) 204 ml/MIN 10/29/2017 10:04 AM [facility] HISTORICAL RESULTS Comment: Estimated GFR(Cockroft-Gault)is used to calculate patient medication dosage Calcium 10.0 8.6 - 10.0 mg/dL 10/29/2017 10:04 AM [facility] HISTORICAL RESULTS Total Protein 7.7 6.4 - 8.3 g/dL 10/29/2017 10:04 AM [facility] HISTORICAL RESULTS Albumin 4.7 3.5 - 5.2 g/dL 10/29/2017 10:04 AM T [facility] HISTORICAL RESULTS Globulin 3.0 2.3 - 3.5 gm/dL 10/29/2017 10:04 AM T [facility] HISTORICAL RESULTS Albumin/Globulin Ratio 1.6 1.1 - 1.8 10/29/2017 10:04 AM T [facility] HISTORICAL RESULTS Total Bilirubin 1.3(H) 0.0 - 1.2 mg/dL 10/29/2017 10:04 AM T [facility] HISTORICAL RESULTS AST 21 0 - 40 U/L 10/29/2017 10:04 AM T [facility] HISTORICAL RESULTS ALT 51(H) 0 - 41 U/L 10/29/2017 10:04 AM [facility] HISTORICAL RESULTS Alkaline Phosphatase 86 40 - 129 U/L 10/29/2017 10:04 AM [facility] HISTORICAL RESULTS 10/29/2017 9:27 AM CDT 10/29/2017 9:32 AM T us Colton Bass MD LAB BLOOD ORDERABLES Faith l Result [facility] HISTORICAL RESULTS * (ABNORMAL) CBC with auto differential (10/29/2017 9:27 AM CDT) WBC 14.2(H) 3.5 - 10.5 x10 3/ul 10/29/2017 9:39 AM [facility] HISTORICAL RESULTS RBC 6.15(H) 4.11 - 5.71 x10 6/ul 10/29/2017 9:39 AM [facility] HISTORICAL RESULTS Hemoglobin 17.2(H) 13.0 - 17.0 g/dL 10/29/2017 9:39 AM T [facility] HISTORICAL RESULTS Hct 49.7(H) 38.2 - 48.5 % 10/29/2017 9:39 AM [facility] HISTORICAL RESULTS MCV 80.8 80.0 - 97.0 fl 10/29/2017 9:39 AM T [facility] HISTORICAL RESULTS MCH 28.0 27.0 - 31.2 pg 10/29/2017 9:39 AM [facility] HISTORICAL RESULTS MCHC 34.6 31.8 - 35.4 g/dl 10/29/2017 9:39 AM [facility] HISTORICAL RESULTS RDW 12.7 11.6 - 14.8 % 10/29/2017 9:39 AM [facility] HISTORICAL RESULTS Plt Count 252 150 - 450 X10 3/ul 10/29/2017 9:39 AM [facility] HISTORICAL RESULTS MPV 11.2(H) 7.4 - 10.4 fl 10/29/2017 9:39 AM [facility] HISTORICAL RESULTS Neut % 70.9 37.0 - 85.0 % 10/29/2017 9:39 AM [facility] HISTORICAL RESULTS Immature Gran % 0.6 0.0 - 3.0 % 10/29/2017 9:39 AM [facility] HISTORICAL RESULTS Lymph % 19.9 5.0 - 45.0 % 10/29/2017 9:39 AM [facility] HISTORICAL RESULTS [place] % 7.2 3.0 - 15.0 % 10/29/2017 9:39 AM [facility] HISTORICAL RESULTS Eos % 1.0 0.0 - 7.0 % 10/29/2017 9:39 AM [facility] HISTORICAL RESULTS Baso % 0.4 0.0 - 2.0 % 10/29/2017 9:39 AM [facility] HISTORICAL RESULTS Absolute Neuts (auto) 10.0(H) 1.7 - 8.7 x10 3/ul 10/29/2017 9:39 AM [facility] HISTORICAL RESULTS Immature Gran # 0.1 0.0 - 0.3 x10 3/ul 10/29/2017 9:39 AM [facility] HISTORICAL RESULTS Absolute Lymphs (auto) 2.8 0.2 - 4.6 x10 3/ul 10/29/2017 9:39 AM [facility] HISTORICAL RESULTS Absolute Monos (auto) 1.0 0.1 - 1.5 x10 3/ul 10/29/2017 9:39 AM [facility] HISTORICAL RESULTS Absolute Eos (auto) 0.1 0.0 - 0.7 x10 3/ul 10/29/2017 9:39 AM [facility] HISTORICAL RESULTS Absolute Basos (auto) 0.1 0.0 - 0.2 x10 3/ul 10/29/2017 9:39 AM T [facility] HISTORICAL RESULTS Nucleat RBC Rel Count 0.0 0 - 3 #/100WBC 10/29/2017 9:39 AM [facility] HISTORICAL RESULTS Absolute Nucleated RBC 0.00 x10 3/ul 10/29/2017 9:39 AM T [facility] HISTORICAL RESULTS Absolute Neutrophils 43347(H) 200 - 8000 /ul 10/29/2017 9:39 AM T [facility] HISTORICAL RESULTS 10/29/2017 9:27 AM CDT 10/29/2017 9:32 AM CDT us Colton Bass MD LAB BLOOD ORDERABLES Faith l Result Performing Organization Address [facility] Co de Phone Number [facility] HISTORICAL RESULTS * Amylase (10/29/2017 9:27 AM CDT) Amylase 33 28 - 100 U/L 10/29/2017 10:04 AM [facility] HISTORICAL RESULTS 10/29/2017 9:27 AM CDT 10/29/2017 9:32 AM CDT us Colton Bass MD LAB BLOOD ORDERABLES Faith l Result Performing Organization Address [facility] Co de Phone Number [facility] HISTORICAL RESULTS * Urinalysis reflex to microscopic and culture (10/29/2017 9:20 AM CDT) Ur Collection Type CLEAN CATCH 10/29/2017 10:14 AM [facility] HISTORICAL RESULTS Ur Culture Indicated? C&S NOT INDICATED 10/29/2017 10:14 AM [facility] HISTORICAL RESULTS Urine Color YELLOW YELLOW 10/29/2017 10:14 AM [facility] HISTORICAL RESULTS Urine Clarity TURBID CLEAR 10/29/2017 10:14 AM [facility] HISTORICAL RESULTS Urine Glucose (UA) NORMAL NORMAL mg/dL 10/29/2017 10:14 AM [facility] HISTORICAL RESULTS Urine Bilirubin NEGATIVE NEGATIVE mg/dl 10/29/2017 10:14 AM [facility] HISTORICAL RESULTS Urine Ketones NEGATIVE NEGATIVE mg/dL 10/29/2017 10:14 AM [facility] HISTORICAL RESULTS Ur Specific [place] 1.011 1.005 - 1.025 10/29/2017 10:14 AM [facility] HISTORICAL RESULTS Urine Blood NEGATIVE NEGATIVE mg/dl 10/29/2017 10:14 AM [facility] HISTORICAL RESULTS Urine pH 8.0 5.0 - 8.0 10/29/2017 10:14 AM [facility] HISTORICAL RESULTS Urine Protein NEGATIVE NEGATIVE mg/dL 10/29/2017 10:14 AM [facility] HISTORICAL RESULTS Urine Urobilinogen NORMAL NORMAL mg/dL 10/29/2017 10:14 AM [facility] HISTORICAL RESULTS Urine Nitrite NEGATIVE NEGATIVE 10/29/2017 10:14 AM [facility] HISTORICAL RESULTS Ur Leukocyte Esterase NEGATIVE NEGATIVE Ulis/ul 10/29/2017 10:14 AM [facility] HISTORICAL RESULTS Ur Microscopic Review Indicated or Ordered 10/29/2017 10:14 AM [facility] HISTORICAL RESULTS Urine WBC 3 0 - 2 /HPF 10/29/2017 10:14 AM [facility] HISTORICAL RESULTS Urine Mucus RARE /LPF 10/29/2017 10:14 AM [facility] HISTORICAL RESULTS Amorphous Crystals Marked /HPF 10/29/2017 10:14 AM [facility] HISTORICAL RESULTS 10/29/2017 9:20 AM CDT 10/29/2017 9:46 AM T Narrative [facility] HISTORICAL RESULTS - 10/29/2017 10:14 AM CDT Indication(s) for ordering ? Other - enter in comments us Colton Bass MD LAB MICROBIOLOGY - GENERA L ORDERABLES Final Result [facility] HISTORICAL RESULTS * (ABNORMAL) Drug Screen, Urine without Confirmation (10/29/2017 9:20 AM CDT) Ur Amphetamine Screen NEGATIVE NEGATIVE 10/29/2017 10:09 AM T [facility] HISTORICAL RESULTS Comment: Cutoff Limit: ??1000 ng/mL ??Detects MDMA, MDA, d-Amphetamine, d-Methamphetamine, ?MBDB-HCl, MDEA and BDB-HCl Note: ??Positive results from this drug screen are unconfirmed. ??Unconfirmed screening results should not be used for non-medical purposes. Ur Barbiturates Screen NEGATIVE NEGATIVE 10/29/2017 10:09 AM [facility] HISTORICAL RESULTS Comment: Cutoff limit: ??200 ng/mL ??Detects Secobarbitol, Cyclopentobarbital, Aprobarbital, ?Butalbital, Allobarbital, Butabarbital, ?Pentobarbital, Amobarbital and Phenobarbital U Benzodiazepines Scrn NEGATIVE NEGATIVE 10/29/2017 10:09 AM [facility] HISTORICAL RESULTS Comment:Cutoff limit: 300 ng /mL U Cannabinoids Screen POSITIVE(H) NEGATIVE 10/29/2017 10:28 AM [facility] HISTORICAL RESULTS Comment: RESULT CALLED at: 1027 10/29/17 by: [id number] to: ANNE MARIE BUSTAMANTE ?? CONFIRMATION on Positive result requested:NO Cutoff Limit: 50 ng/mL U Cocaine Metab Screen NEGATIVE NEGATIVE 10/29/2017 10:09 AM [facility] HISTORICAL RESULTS Comment:Cutoff limit: 300 ng /mL Urine Opiates Screen NEGATIVE NEGATIVE 10/29/2017 10:09 AM [facility] HISTORICAL RESULTS Comment: Cutoff Limit: ??300 ng/mL Detects Morphine, Codeine, Ethyl Morphine, ?Diacetylmorphine, 6-Acetylmorphine, Dihydrocodeine, ?Wvcxryty-8-dpauczjnwwe and Hydrocodone Ur Oxycodone Screen NEGATIVE NEGATIVE 10/29/2017 10:09 AM [facility] HISTORICAL RESULTS Comment:Cutoff Limit: 100 ng /mL Urine Creatinine/MAGNOLIA 114.3 mg/dL 10/29/2017 10:09 AM [facility] HISTORICAL RESULTS Comment:If Creatinine is < 4 0 mg/dL, recollection is suggested. 10/29/2017 9:20 AM CDT 10/29/2017 9:46 AM CDT Narrative [facility] HISTORICAL RESULTS - 10/29/2017 10:09 AM CDT Collected By [email or web address] us Colton Bass MD LAB URINE ORDERABLES Faith barrett Result [facility] HISTORICAL RESULTS * CT Head WO Contrast (10/29/2017 12:00 AM CDT) Anatomical Region Laterality Modality Head and Neck N/A Computed Tomogra phy 10/29/2017 Impressions 10/29/2017 10:25 AM CDT ?? 1.No acute intracranial findings. THIS IS AN ELECTRONICALLY VERIFIED FINAL REPORT 10/29/2017 10:22 AM - Electronically signed by Indra Palomo M.D. MJ: NOREEN D: ??10/29/2017 10:22 AM T: ??10/29/2017 10:22 AM Report ID: [id number] Reading Location: ??[id number] [EOD] Narrative 10/29/2017 10:25 AM CDT EXAM DESCRIPTION: ??CT Head WO IV Contrast COMPLETED DATE/TIME: ??10/29/2017 10:14 am REASON FOR STUDY: ??Intractable vomiting over the past week. ??Nausea and vomiting. TECHNIQUE: ??Axial images acquired through the brain without intravenous contrast. ??Images stored on PACS. Automated exposure control was used as a dose optimization technique for this examination. COMPARISON: ??No prior. FINDINGS: BRAIN: There are no extra-axial fluid collections. ??No acute hemorrhage. ?? Hernandes-white matter differentiation is normal. ??Ventricles and sulci demonstrate normal size and configuration. ??No shift of midline structures or of mass effect. ??Normal white matter. EXTRA-AXIAL SPACES: No fluid collections. No masses. CALVARIUM: No fracture. PARANASAL SINUSES AND MASTOIDS: No fluid or mucosal thickening. ORBITS: No significant abnormality. OTHER: No other significant abnormality. Procedure Note Provider, MD Sherri - 10/12/2020 EXAM DESCRIPTION: CT Head WO IV Contrast COMPLETED DATE/TIME: 10/29/2017 10:14 am REASON FOR STUDY: Intractable vomiting over the past week. Nausea and vomiting. TECHNIQUE: Axial images acquired through the brain without intravenous contrast. Images stored on PACS. Automated exposure control was used as a dose optimization technique for this examination. COMPARISON: No prior. FINDINGS: BRAIN: There are no extra-axial fluid collections. No acute hemorrhage. Hernandes-white matter differentiation is normal. Ventricles and sulcidemonstrate normal size and configuration. No shift of midline structures or of mass effect. Normal white matter. EXTRA-AXIAL SPACES: No fluid collections. No masses. CALVARIUM: No fracture. PARANASAL SINUSES AND MASTOIDS: No fluid or mucosal thickening. ORBITS: No significant abnormality. OTHER: No other significant abnormality. IMPRESSION: 1.No acute intracranial findings. THIS IS AN ELECTRONICALLY VERIFIED FINAL REPORT 10/29/2017 10:22 AM - Electronically signed by Indra SORTO Report ID: [id number] Reading Location: [id number] [EOD] us Colton Bass MD IMG CT PROCEDURES Final R esult * CT Abdomen Pelvis W Contrast (10/29/2017 12:00 AM CDT) Anatomical Region Laterality Modality Body N/A Computed Tomogra phy 10/29/2017 Impressions 10/29/2017 10:32 AM CDT ?? 1.No acute inflammatory change of the abdomen or pelvis. ??No bowel obstruction or inflammatory change of bowel. 2.Mild spondylosis L5-S1 with a mild broad-based disc bulge resulting in mild effacement of the anterior aspect of the thecal sac. ??Mild stenosis. 3.Simple cyst right kidney. THIS IS AN ELECTRONICALLY VERIFIED FINAL REPORT 10/29/2017 10:30 AM - Electronically signed by Indra SORTO D: ??10/29/2017 10:30 AM T: ??10/29/2017 10:30 AM Report ID: [id number] Reading Location: ??[id number] [EOD] Narrative 10/29/2017 10:32 AM CDT EXAM DESCRIPTION: ??CT Abd/Pelvis W IV Contrast COMPLETED DATE/TIME: ??10/29/2017 10:14 am REASON FOR STUDY: ??Intractable vomiting over the past week. ??Nausea, vomiting and diarrhea. TECHNIQUE: ??CT scan of the abdomen and [...] were intravenously injected at the right antecubital fossa IV site. COMPARISON: ??09/25/2017 FINDINGS: ABDOMEN/PELVIS: LOWER CHEST: Limited views through the lung base demonstrates no infiltrate or effusion. LIVER: Normal size. ??No identified cystic or solid masses. GALLBLADDER: No stones identified. No wall thickening or inflammatory changes. BILE DUCTS: No intrahepatic or extrahepatic ductal dilatation. SPLEEN: Normal size. ??No focal lesions. PANCREAS: No identified cystic or solid masses. No significant calcifications. No adjacent inflammation or peripancreatic fluid collections. Pancreatic duct not dilated. ADRENALS: Normal. KIDNEYS/URINARY TRACT: The right kidney demonstrates a 1 cm cyst of the interpolar region measuring 9 Hounsfield units. ??The right kidney is otherwise unremarkable. ??The left kidney demonstrates a normal appearance with no mass or nephrolithiasis. ??Kidneys demonstrate no hydronephrosis. ??There is no hydroureter. ??Bladder is unremarkable. GI: There is no acute inflammatory change of bowel. ??There is no obstruction. PERITONEUM: No ascites or free air. RETROPERITONEUM: No mass or adenopathy. REPRODUCTIVE: No significant abnormality. VASCULATURE: No abdominal aortic aneurysm. ??Portal vein is patent. MUSCULOSKELETAL: Minimal degenerative endplate change at L5-S1. ??Mild broad-based disc bulge. ??This results in mild effacement of the anterior aspect of thecal sac. ??Mild stenosis. OTHER: No other abnormality. Procedure Note Provider, MD Sherri - 10/12/2020 EXAM DESCRIPTION: CT Abd/Pelvis W IV Contrast COMPLETED DATE/TIME: 10/29/2017 10:14 am REASON FOR STUDY: Intractable vomiting over the past week. Nausea,vomiting and diarrhea. TECHNIQUE: CT scan of the abdomen and pelvis performed with intravenousand without oral contrast using helical scanning technique with dynamic intravenous contrast injection. Reconstructed coronal and sagittal MPRimages reviewed. All images stored on PACS. Automated exposure control was used as a dose optimization technique forthis examination. CONTRAST TYPE/DOSE: 100 mL of Optiray 350 contrast were intravenously injected at the right antecubital fossa IV site. COMPARISON: 09/25/2017 FINDINGS: ABDOMEN/PELVIS: LOWER CHEST: Limited views through the lung base demonstrates noinfiltrate or effusion. LIVER: Normal size. No identified cystic or solid masses. GALLBLADDER: No stones identified. No wall thickening or inflammatorychanges. BILE DUCTS: No intrahepatic or extrahepatic ductal dilatation. SPLEEN: Normal size. No focal lesions. PANCREAS: No identified cystic or solid masses. No significantcalcifications. No adjacent inflammation or peripancreatic fluid collections. Pancreaticduct not dilated. ADRENALS: Normal. KIDNEYS/URINARY TRACT: The right kidney demonstrates a 1 cm cyst of the interpolar region measuring 9 Hounsfield units. The right kidney isotherwise unremarkable. The left kidney demonstrates a normal appearance with nomass or nephrolithiasis. Kidneys demonstrate no hydronephrosis. There is no hydroureter. Bladder is unremarkable. GI: There is no acute inflammatory change of bowel. There is noobstruction. PERITONEUM: No ascites or free air. RETROPERITONEUM: No mass or adenopathy. REPRODUCTIVE: No significant abnormality. VASCULATURE: No abdominal aortic aneurysm. Portal vein is patent. MUSCULOSKELETAL: Minimal degenerative endplate change at L5-S1. Mild broad-based disc bulge. This results in mild effacement of the anterior aspect of thecal sac. Mild stenosis. OTHER: No other abnormality. IMPRESSION: 1.No acute inflammatory change of the abdomen or pelvis. No bowelobstruction or inflammatory change of bowel. 2.Mild spondylosis L5-S1 with a mild broad-based disc bulge resulting inmild effacement of the anterior aspect of the thecal sac. Mild stenosis. 3.Simple cyst right kidney. THIS IS AN ELECTRONICALLY VERIFIED FINAL REPORT 10/29/2017 10:30 AM - Electronically signed by Indra Palomo M.D. MJ: NOREEN Report ID: [id number] Reading Location: [id number] [EOD] Colton Bass MD IMG CT PROCEDURES Final R esult documented in this encounter Visit Diagnoses Diagnosis Nausea with vomiting Cannabis abuse, uncomplicated Other penitentiary (current) drug therapy documented in this encounter
--- OUTSIDE RECORDS SUMMARY | 2024-05-26 02:48 | XMS_ITS | Encounter Summary ---
Author Organization [facility] Healthcare Address [address] [place] [address] Care Team Providers Care Waitstaff Name Role Phone Unavailable Primary Care Provider Unavailabl e Encounter Details Date Type Department Care Team (Latest Contact Info) Description 01/12/2018 11:30 AM CDT - 01/12/2018 3:27 PM CDT Hospital Encounter [facility] Cally Howard MD [address] [place] [address] Duodenitis without bleeding; Helicobacter pylori (H. 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 Gender Identity Not on file Sexual Orientation Not on file documented as of this encounter Last Filed Vital Signs Vital Sign Reading Time Taken Comments Blood Pressure 127/63 01/12/2018 11:39 AM CDT Pulse 86 01/12/2018 11:39 AM CDT Temperature 36.8 ??C (98.2 ??F) 01/12/2018 11:39 AM C DT Respiratory Rate - - Oxygen Saturation 99% 01/12/2018 11:39 AM CDT Inhaled Oxygen Concentration - - Weight 123 kg (271 lb 2.7 oz) 01/12/2018 11:39 A M CDT Height 180.3 cm (5' 11 ) 01/12/2018 11:39 AM CDT Body Mass Index 37.82 01/12/2018 11:39 AM CDT documented in this encounter Plan of Treatment Not on file documented as of this encounter Procedures Procedure Name Priority Date/Time Associated Diagnosis Comments URINALYSIS Routine 01/12/2018 12:01 PM CDT DRUGS OF ABUSE SCREEN, URINE WITHOUT CONFIRMATION Routine 01/12/2018 12:01 PM CDT CBC WITH AUTO DIFFERENTIAL Routine 01/12/2018 11:53 AM CDT LIPASE Routine 01/12/2018 11:53 AM CDT COMPREHENSIVE METABOLIC PANEL Routine 01/12/2018 11:53 AM CDT documented in this encounter Results * (ABNORMAL) Drug Screen, Urine without Confirmation (01/12/2018 12:01 PM CDT) Ur Amphetamine Screen NEGATIVE NEGATIVE 01/12/2018 12:33 PM CDT [facility] [place] [facility] Comment: Cutoff Limit: ??1000 ng/mL ??Detects MDMA, MDA, d-Amphetamine, d-Methamphetamine, ?MBDB-HCl, MDEA and BDB-HCl Note: ??Positive results from this drug screen are unconfirmed. ??Unconfirmed screening results should not be used for non-medical purposes. Ur Barbiturates Screen NEGATIVE NEGATIVE 01/12/2018 12:33 PM CDT [facility] [place] [facility] Comment: Cutoff limit: ??200 ng/mL ??Detects Secobarbitol, Cyclopentobarbital, Aprobarbital, ?Butalbital, Allobarbital, Butabarbital, ?Pentobarbital, Amobarbital and Phenobarbital U Benzodiazepines Scrn NEGATIVE NEGATIVE 01/12/2018 12:33 PM CDT [facility] [place] [facility] Comment:Cutoff limit: 300 ng /mL U Cannabinoids Screen POSITIVE(H) NEGATIVE 01/12/2018 1:26 PM CDT [facility] [place] [facility] Comment: RESULT CALLED at: [id number] 01/12/18 by: [id number] to: [email or web address] [id number] ?? CONFIRMATION on Positive result requested:n Cutoff Limit: 50 ng/mL U Cocaine Metab Screen NEGATIVE NEGATIVE 01/12/2018 12:33 PM CDT [facility] [place] [facility] Comment:Cutoff limit: 300 ng /mL Urine Opiates Screen NEGATIVE NEGATIVE 01/12/2018 12:33 PM CDT [facility] [place] [facility] Comment: Cutoff Limit: ??300 ng/mL Detects Morphine, Codeine, Ethyl Morphine, ?Diacetylmorphine, 6-Acetylmorphine, Dihydrocodeine, ?[id number]-[id number] and Hydrocodone Ur Oxycodone Screen NEGATIVE NEGATIVE 01/12/2018 12:33 PM CDT [facility] [place] [facility] Comment:Cutoff Limit: 100 ng /mL Urine Creatinine/MAGNOLIA 355.8 mg/dL 01/12/2018 12:33 PM T [facility] [place] [facility] Comment:If Creatinine is < 4 0 mg/dL, recollection is suggested. 01/12/2018 12:0 1 PM CDT 01/12/2018 12:07 PM CDT Narrative [facility] [place] [facility] - 01/12/2018 12:33 PM CDT Collected By [place] us Tammi Bolaños E COMMERCE DIRECTOR LAB URINE ORDERABLES Final Resu lt [facility] [place] [facility]ULTS * (ABNORMAL) Urinalysis (01/12/2018 12:01 PM CDT) Ur Collection Type CLEAN CATCH 01/12/2018 12:16 PM T [facility] [place] [facility] Urine Color YELLOW YELLOW 01/12/2018 12:16 PM T [facility] [place] [facility] Urine Clarity CLEAR CLEAR 01/12/2018 12:16 PM T [facility] [place] [facility] Urine Glucose (UA) NORMAL NORMAL mg/dL 01/12/2018 12:16 PM T [facility] [place] [facility] Urine Bilirubin NEGATIVE NEGATIVE mg/dl 01/12/2018 12:16 PM T [facility] [place] [facility] Urine Ketones 5(H) NEGATIVE mg/dL 01/12/2018 12:16 PM T [facility] [place] [facility] Ur Specific [place] 1.027(H) 1.005 - 1.025 01/12/2018 12:16 PM T [facility] [place] [facility] Urine Blood NEGATIVE NEGATIVE mg/dl 01/12/2018 12:16 PM T [facility] [place] [facility] Urine pH 6.0 5.0 - 8.0 01/12/2018 12:16 PM T [facility] [place] [facility] Urine Protein NEGATIVE NEGATIVE mg/dL Urine Urobilinogen 2(H) NORMAL mg/dL 01/12/2018 12:16 PM T [facility] [place] [facility] Urine Nitrite NEGATIVE NEGATIVE 01/12/2018 12:16 PM T [facility] [place] [facility] Ur Leukocyte Esterase NEGATIVE NEGATIVE Luis/ul 01/12/2018 12:16 PM T [facility] [place] [facility]ULTS Ur Microscopic Review Not Indicated 01/12/2018 12:0 1 PM CDT 01/12/2018 12:07 PM CDT us Tammi Bolaños E [employer]ER[employer] DIRECTOR LAB URINE ORDERABLES Final Resu lt Performing Organization Address [facility] Co de Phone Number [facility] [place] [facility] RESULTS * Lipase (01/12/2018 11:53 AM CDT) Lipase 16 13 - 60 U/L 01/12/2018 12:31 PM T [facility] [place] [facility] RESULTS 01/12/2018 11:5 3 AM CDT 01/12/2018 12:07 PM CDT us Tammi Bolaños NP LAB BLOOD ORDERABLES Final Resu lt Performing Organization Address [facility] Co de Phone Number [facility] [place] [facility] RESULTS * (ABNORMAL) Comprehensive metabolic panel (01/12/2018 11:53 AM CDT) Sodium 141 135 - 145 mmol/L 01/12/2018 12:31 PM T [facility] [place] [facility] RESULTS Potassium 3.8 3.3 - 5.1 mmol/L 01/12/2018 12:31 PM T [facility] [place] [facility] RESULTS Chloride 103 96 - 108 mmol/L 01/12/2018 12:31 PM T [facility] [place] [facility] RESULTS Carbon Dioxide 22 22 - 32 mmol/L Anion Gap 16 7 - 16 Glucose 119(H) 70 - 100 mg/dL BUN 13 6 - 20 mg/dL Creatinine 0.8 0.5 - 1.3 mg/dL Comment: NOTE: Estimated [...] dialysis @ Est GFR (Cockcroft-G) 198 ml/MIN Comment: Estimated GFR(Cockroft-Gault)is used to calculate patient medication dosage Calcium 9.9 8.6 - 10.0 mg/dL 01/12/2018 12:31 PM T [facility] [place] [facility] RESULTS Total Protein 7.4 6.4 - 8.3 g/dL 01/12/2018 12:31 PM T [facility] [place] [facility] RESULTS Albumin 4.7 3.5 - 5.2 g/dL 01/12/2018 12:31 PM T [facility] [place] [facility] RESULTS Globulin 2.7 2.3 - 3.5 gm/dL 01/12/2018 12:31 PM T [facility] [place] [facility] RESULTS Albumin/Globulin Ratio 1.7 1.1 - 1.8 01/12/2018 12:31 PM T [facility] [place] [facility] RESULTS Total Bilirubin 1.2 0.0 - 1.2 mg/dL AST 18 0 - 40 U/L ALT 25 0 - 41 U/L Alkaline Phosphatase 76 40 - 129 U/L 01/12/2018 11:5 3 AM CDT 01/12/2018 12:07 PM CDT us Tammi Bolaños E [employer]ER[employer] DIRECTOR LAB BLOOD ORDERABLES Final Resu lt [facility] [place] [facility] RESULTS * (ABNORMAL) CBC with auto differential (01/12/2018 11:53 AM CDT) WBC 10.3 3.5 - 10.5 x10 3/ul RBC 5.54 4.11 - 5.71 x10 6/ul Hemoglobin 15.5 13.0 - 17.0 g/dL 01/12/2018 12:11 PM T [facility] [place] [facility] RESULTS Hct 46.3 38.2 - 48.5 % 01/12/2018 12:11 PM T [facility] [place] [facility]IST[facility] RESULTS MCV 83.6 80.0 - 97.0 fl MCH 28.0 27.0 - 31.2 pg MCHC 33.5 31.8 - 35.4 g/dl RDW 12.7 11.6 - 14.8 % Plt Count 230 150 - 450 X10 3/ul MPV 11.1(H) 7.4 - 10.4 fl Neut % 76.5 37.0 - 85.0 % Immature Gran % 0.6 0.0 - 3.0 % Lymph % 16.7 5.0 - 45.0 % [place] % 5.5 3.0 - 15.0 % Eos % 0.3 0.0 - 7.0 % Baso % 0.4 0.0 - 2.0 % Absolute Neuts (auto) 7.9 1.7 - 8.7 x10 3/ul Immature Gran # 0.1 0.0 - 0.3 x10 3/ul Absolute Lymphs (auto) 1.7 0.2 - 4.6 x10 3/ul Absolute Monos (auto) 0.6 0.1 - 1.5 x10 3/ul Absolute Eos (auto) 0.0 0.0 - 0.7 x10 3/ul 01/12/2018 12:11 PM CDT [facility] [place] [facility] Absolute Basos (auto) 0.0 0.0 - 0.2 x10 3/ul 01/12/2018 12:11 PM T [facility] [place] [facility] RESULTS Nucleat RBC Rel Count 0.0 0 - 3 #/100WBC 01/12/2018 12:11 PM T [facility] [place] [facility] RESULTS Absolute Nucleated RBC 0.00 x10 3/ul 01/12/2018 12:11 PM T [facility] [place] [facility] RESULTS Absolute Neutrophils 8000 200 - 8000 /ul 01/12/2018 12:11 PM T [facility] [place] [facility] RESULTS 01/12/2018 11:5 3 AM CDT 01/12/2018 12:07 PM CDT us Tammi Bolaños E [employer]ER[employer] DIRECTOR LAB BLOOD ORDERABLES Final Resu lt [facility] [place] [facility] RES[facility] documented in this encounter Visit Diagnoses Diagnosis Duodenitis without bleeding Helicobacter pylori (H. pylori) as the cause of diseases classified elsewhere Cyclical vomiting, not intractable documented in this encounter
--- OUTSIDE RECORDS SUMMARY | 2024-05-26 02:48 | XMS_ITS | Encounter Summary ---
Author Organization [facility] Healthcare Address [address] [place] [address] Care Team Providers Care Nematology Teacher Name Role Phone Unavailable Primary Care Provider Unavailabl e Encounter Details Date Type Department Care Team (Late st Contact Info) Description 09/25/2017 8:12 AM CDT - 09/25/2017 2:19 PM CDT Hospital Encounter [facility] Lupe Floyd Dehydration; Nausea with vomiting; Cannabis abuse, uncomplicated Social History Tobacco Use Types Packs/Day Years Used Date Smoking Tobacco: Never Assessed Sex and Gender Information Value Date Recorded Sex Assigned at Not on file 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 Gender Identity Not on file Sexual Orientation Not on file documented as of this encounter Last Filed Vital Signs Vital Sign Reading Time Taken Comments Blood Pressure 117/55 09/25/2017 8:13 AM CDT Pulse 87 09/25/2017 8:13 AM CDT Temperature 35.4 ??C (95.8 ??F) 09/25/2017 8:13 AM CD T Respiratory Rate - - Oxygen Saturation 100% 09/25/2017 8:13 AM CDT Inhaled Oxygen Concentration - - Weight 132 kg (291 lb 0.2 oz) 09/25/2017 8:13 AM CDT Height 185.4 cm (6' 1 ) 09/25/2017 8:13 AM CDT Body Mass Index 38.39 09/25/2017 8:13 AM CDT documented in this encounter Plan of Treatment Not on file documented as of this encounter Procedures Procedure Name Priority Date/Time Associated Diagnosis Comments LACTATE Routine 09/25/2017 1:07 PM CDT LACTATE Routine 09/25/2017 10:22 AM CDT URINALYSIS AND REFLEX TO MICROSCOPIC AND CULTURE Routine 09/25/2017 8:30 AM CDT CBC WITH AUTO DIFFERENTIAL Routine 09/25/2017 8:19 AM CDT PHOSPHORUS Routine 09/25/2017 8:19 AM CDT MAGNESIUM Routine 09/25/2017 8:19 AM CDT LIPASE Routine 09/25/2017 8:19 AM CDT COMPREHENSIVE METABOLIC PANEL Routine 09/25/2017 8:[address] ABDOMEN PELVIS WO CONTRAST Routine 09/25/2017 12:00 AM CDT documented in this encounter Results * Lactate (09/25/2017 1:07 PM CDT) L-Lactate 1.8 mmol/L Comment:Lactate Reference Ra nge: 0.5 - 2.2 mmol/L 09/25/2017 1:07 PM CDT 09/25/2017 1:13 PM CDT Lupe Floyd LAB BLOOD ORDERABLES Final Re sult Performing Organization Address [facility]/ZIP Co de Phone Number [facility] HISTORICAL RESULTS * (ABNORMAL) Lactate (09/25/2017 10:22 AM CDT) L-Lactate 3.9(HH) mmol/L Comment: CRITICAL VALUE CALLED and REPEATED. ?? at:1116 09/25/17 by:Mirela Mancia to: ER ?? Lactate Reference Range: 0.5 - 2.2 mmol/L 09/25/2017 10:2 2 AM CDT 09/25/2017 10:37 AM CDT us Lupepierre Floyd LAB BLOOD ORDERABLES Final Re sult Performing Organization Address City/[facility]/ZIP Co de Phone Number [facility] HISTORICAL RESULTS * (ABNORMAL) Urinalysis reflex to microscopic and culture (09/25/2017 8:30 AM [facility]) Ur Collection Type CLEAN CATCH Ur Culture Indicated? C&S NOT INDICATED Urine Color RAHEL YELLOW Urine Clarity HAZY CLEAR Urine Glucose (UA) NORMAL NORMAL mg/dL Urine Bilirubin NEGATIVE NEGATIVE mg/dl Urine Ketones NEGATIVE NEGATIVE mg/dL Ur Specific [place] 1.032(H) 1.005 - 1.025 Urine Blood NEGATIVE NEGATIVE mg/dl Urine pH 5.0 5.0 - 8.0 Urine Protein 100(H) NEGATIVE mg/dL Urine Urobilinogen 2(H) NORMAL mg/dL Urine Nitrite NEGATIVE NEGATIVE Ur Leukocyte Esterase NEGATIVE NEGATIVE Luis/ul Ur Microscopic Review Indicated or Ordered Urine RBC 2 0 - 2 /HPF Urine WBC 3 0 - 2 /HPF Urine Mucus Mod /LPF Calcium Oxalate Crystal Many /HPF 09/25/2017 8:30 AM CDT 09/25/2017 8:52 AM CDT [facility] HISTORICAL RESULTS - 09/25/2017 9:26 AM CDT Indication(s) for ordering ? Other - enter in comments ? Pain-pelv/flank/suprapubc ?? us Brandy Bhatia MD LAB MICROBIOLOGY - GENERAL ORDER LUCAS Final Result Performing Organization Address [facility]/State/ZIP Co de Phone Number [facility] HISTORICAL RESULTS * Phosphorus (09/25/2017 8:19 AM CDT) Phosphorus 3.0 2.5 - 4.5 mg/dL 09/25/2017 8:19 AM CDT 09/25/2017 8:26 AM CDT [facility] HISTORICAL RESULTS - 09/25/2017 9:45 AM CDT us Brandy Bhatia MD LAB BLOOD ORDERABLES Final Resul t Performing Organization Address [facility] de Phone Number [facility] HISTORICAL RESULTS * Magnesium (09/25/2017 8:19 AM CDT) Magnesium 2.0 1.6 - 2.6 mg/dL Comment:Magnesium sulfate th erapy: 3.0-9.1 mg/dL 09/25/2017 8:19 AM CDT 09/25/2017 8:26 AM CDT [facility] HISTORICAL RESULTS - 09/25/2017 9:45 AM CDT us Brandy Bhatia MD LAB BLOOD ORDERABLES Final Resul t Performing Organization Address [facility]/ZIP Co de Phone Number [facility] HISTORICAL RESULTS * Lipase (09/25/2017 8:19 AM CDT) Lipase 15 13 - 60 U/L 09/25/2017 8:19 AM CDT 09/25/2017 8:26 AM CDT Narrative [facility] HISTORICAL RESULTS - 09/25/2017 9:45 AM CDT us Brandy Bhatia MD LAB BLOOD ORDERABLES Final Resul t [facility] HISTORICAL RESULTS * (ABNORMAL) Comprehensive metabolic panel (09/25/2017 8:19 AM CDT) Sodium 142 135 - 145 mmol/L Potassium 3.7 3.3 - 5.1 mmol/L Chloride 99 96 - 108 mmol/L Carbon Dioxide 25 22 - 32 mmol/L Anion Gap 18(H) 7 - 16 Glucose 104(H) 70 - 100 mg/dL BUN 18 6 - 20 mg/dL Creatinine 0.9 0.5 - 1.3 mg/dL Comment: NOTE: Estimated [...] or on dialysis @ Est GFR (Cockcroft-G) 188 ml/MIN Comment: Estimated GFR(Cockroft-Gault)is used to calculate patient medication dosage Calcium 9.7 8.6 - 10.0 mg/dL Total Protein 7.8 6.4 - 8.3 g/dL Albumin 4.7 3.5 - 5.2 g/dL Globulin 3.1 2.3 - 3.5 gm/dL Albumin/Globulin Ratio 1.5 1.1 - 1.8 Total Bilirubin 1.2 0.0 - 1.2 mg/dL AST 22 0 - 40 U/L Comment: SPECIMEN IS SLIGHTLY HEMOLYZED: ?? Hemolysis interferes with the above test. ALT 26 0 - 41 U/L 09/25/2017 8:58 AM [facility] Alkaline Phosphatase 88 40 - 129 U/L 09/25/2017 8:58 AM CDT [facility] [employer] HISTORICAL RESULTS 09/25/2017 8:19 AM CDT 09/25/2017 8:26 AM CDT Narrative [facility] - 09/25/2017 8:58 AM CDT us Brandy Bhatia MD LAB BLOOD ORDERABLES Final Resul t [facility] HISTORICAL RESULTS * (ABNORMAL) CBC with auto differential (09/25/2017 8:19 AM CDT) WBC 11.0(H) 3.5 - 10.5 x10 3/ul 09/25/2017 8:37 AM CDT [facility] [employer] HISTORICAL RESULTS RBC 6.28(H) 4.11 - 5.71 x10 6/ul 09/25/2017 8:37 AM CDT [facility] [employer] HISTORICAL RESULTS Hemoglobin 17.7(H) 13.0 - 17.0 g/dL 09/25/2017 8:37 AM T [facility] [employer] HISTORICAL RESULTS Hct 51.7(H) 38.2 - 48.5 % 09/25/2017 8:37 AM CDT [facility] [employer] HISTORICAL RESULTS MCV 82.3 80.0 - 97.0 fl 09/25/2017 8:37 AM CDT [facility] [employer] HISTORICAL RESULTS MCH 28.2 27.0 - 31.2 pg 09/25/2017 8:37 AM CDT [facility] [employer] HISTORICAL RESULTS MCHC 34.2 31.8 - 35.4 g/dl 09/25/2017 8:37 AM CDT [facility] [employer] HISTORICAL RESULTS RDW 12.8 11.6 - 14.8 % 09/25/2017 8:37 AM T [facility] [employer] HISTORICAL RESULTS Plt Count 247 150 - 450 X10 3/ul 09/25/2017 8:37 AM T [facility] [employer] HISTORICAL RESULTS MPV 11.3(H) 7.4 - 10.4 fl 09/25/2017 8:37 AM T [facility] [employer] HISTORICAL RESULTS Neut % 59.6 37.0 - 85.0 % 09/25/2017 8:37 AM CDT [facility] [employer] HISTORICAL RESULTS Immature Gran % 0.5 0.0 - 3.0 % Lymph % 30.2 5.0 - 45.0 % [place] % 7.8 3.0 - 15.0 % Eos % 1.4 0.0 - 7.0 % Baso % 0.5 0.0 - 2.0 % Absolute Neuts (auto) 6.6 1.7 - 8.7 x10 3/ul Immature Gran # 0.1 0.0 - 0.3 x10 3/ul Absolute Lymphs (auto) 3.3 0.2 - 4.6 x10 3/ul Absolute Monos (auto) 0.9 0.1 - 1.5 x10 3/ul Absolute Eos (auto) 0.2 0.0 - 0.7 x10 3/ul Absolute Basos (auto) 0.1 0.0 - 0.2 x10 3/ul Nucleat RBC Rel Count 0.0 0 - 3 #/100WBC Absolute Nucleated RBC 0.00 x10 3/ul Absolute Neutrophils 6700 200 - 8000 /ul 09/25/2017 8:19 AM T 09/25/2017 8:26 AM [facility] Narrative [facility] HISTORICAL RESULTS - 09/25/2017 8:37 AM CDT us Brandy Bhatia MD LAB BLOOD ORDERABLES Final Resul t [facility] HISTORICAL RESULTS * CT Abdomen Pelvis WO Contrast (09/25/2017 12:00 AM CDT) Anatomical Region Laterality Modality Body N/A Computed Tomogra phy 09/25/2017 Impressions 09/25/2017 11:30 AM CDT ??No acute abnormality. THIS IS AN ELECTRONICALLY VERIFIED FINAL REPORT 09/25/2017 11:27 AM - Electronically signed by Aj Link M.D. NC: GAIL D: ??09/25/2017 11:27 AM T: ??09/25/2017 11:27 AM Report ID: [id number] Reading Location: ??[id number] [EOD] Narrative 09/25/2017 11:30 AM CDT EXAM DESCRIPTION: ??CT Abd/Pelvis WO IV Contrast COMPLETED DATE/TIME: ??09/25/2017 11:16 am REASON FOR STUDY: ??Acute nausea and vomiting. TECHNIQUE: ??CT scan of the abdomen and pelvis performed without intravenous and without oral contrast using helical scanning technique. Reconstructed coronal and sagittal MPR images reviewed. All images stored on PACS. The sensitivity for detection of solid visceral lesions is diminished without the use of intravenous contrast. Automated exposure control was used as a dose optimization technique for this examination. COMPARISON: ??None FINDINGS: ABDOMEN/PELVIS: LOWER CHEST: No significant pulmonary abnormalities. No effusion. LIVER: Normal size. ??No identified cystic or solid masses. GALLBLADDER: No stones identified. No wall thickening or inflammatory changes. BILE DUCTS: No intrahepatic or extrahepatic ductal dilatation. SPLEEN: Normal size. ??No focal lesions. PANCREAS: No identified cystic or solid masses. ??No significant calcifications. No adjacent inflammation or peripancreatic fluid collections. Pancreatic duct not dilated. ADRENALS: Normal. KIDNEYS/URINARY TRACT: No identified significant cystic or solid masses. No stones. No hydronephrosis or hydroureter. Urinary bladder is unremarkable. GI: No dilated bowel loops. No obvious wall thickening. ??Normal appendix. ??No significant diverticular disease. PERITONEUM: No ascites or free air. RETROPERITONEUM: No mass or adenopathy. REPRODUCTIVE: No significant abnormality. VASCULATURE: No abdominal aortic aneurysm. MUSCULOSKELETAL: No acute finding. OTHER: No other abnormality. Procedure Note Provider, MD Sherri - 10/12/2020 EXAM DESCRIPTION: CT Abd/Pelvis WO IV Contrast COMPLETED DATE/TIME: 09/25/2017 11:16 am REASON FOR STUDY: Acute nausea and vomiting. TECHNIQUE: CT scan of the abdomen and pelvis performed withoutintravenous and without oral contrast using helical scanning technique. Reconstructed coronal and sagittal MPR images reviewed. All images stored on PACS. The sensitivity for detection of solid visceral lesions is diminished withoutthe use of intravenous contrast. Automated exposure control was used as a dose optimization technique forthis examination. COMPARISON: None FINDINGS: ABDOMEN/PELVIS: LOWER CHEST: No significant pulmonary abnormalities. No [...] No identified significant cystic or solid masses.No stones. No hydronephrosis or hydroureter. Urinary bladder isunremarkable. GI: No dilated bowel loops. No obvious wall thickening. Normal appendix.No significant diverticular disease. PERITONEUM: No ascites or free air. RETROPERITONEUM: No mass or adenopathy. REPRODUCTIVE: No significant abnormality. VASCULATURE: No abdominal aortic aneurysm. MUSCULOSKELETAL: No acute finding. OTHER: No other abnormality. IMPRESSION: No acute abnormality. THIS IS AN ELECTRONICALLY VERIFIED FINAL REPORT 09/25/2017 11:27 AM - Electronically signed by Aj Link M.D. NC: GAIL Report ID: [id number] Reading Location: [id number] [EOD] Lupe Floyd [facility] CT PROCEDURES Final Resul t documented in this encounter Visit Diagnoses Diagnosis Dehydration Nausea with vomiting Cannabis abuse, uncomplicated documented in this encounter
--- OUTSIDE RECORDS SUMMARY | 2024-05-26 02:48 | XMS_ITS | Encounter Summary ---
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7 kg (268 lb 4.8 oz) 01/11/2018 1:26 PM CDT Height 180.3 cm (5' 11 ) 01/11/2018 1:26 PM CDT Body Mass Index 37.42 01/11/2018 1:26 PM CDT documented in this encounter Plan of Treatment Not on file documented as of this encounter Procedures Procedure Name Priority Date/Time Associated Diagnosis Comments HEMOGRAM WITH MANUAL DIFFERENTIAL Routine 01/11/2018 2:08 PM CDT COMPREHENSIVE METABOLIC PANEL Routine 01/11/2018 2:08 PM CDT documented in this encounter Results * (ABNORMAL) Hemogram with manual differential (01/11/2018 2:08 PM CDT) WBC 11.8(H) 3.5 - 10.5 x10 3/ul RBC 5.87(H) 4.11 - 5.71 x10 6/ul Hemoglobin 16.6 13.0 - 17.0 g/dL Hct 49.6(H) 38.2 - 48.5 % MCV 84.5 80.0 - 97.0 fl MCH 28.3 27.0 - 31.2 pg MCHC 33.5 31.8 - 35.4 g/dl 01/11/2018 2:52 PM CDT [facility] RDW 12.8 11.6 - 14.8 % Plt Count 213 150 - 450 X10 3/ul MPV 11.6(H) 7.4 - 10.4 fl Neut % 83.2 37.0 - 85.0 % Immature Gran % 0.3 0.0 - 3.0 % Lymph % 11.5 5.0 - 45.0 % [place] % 4.7 3.0 - 15.0 % Eos % 0.1 0.0 - 7.0 % 01/11/2018 2:52 PM CDT [facility] H[facility] RESULTS Baso % 0.2 0.0 - 2.0 % Absolute Neuts (auto) 9.8(H) 1.7 - 8.7 x10 3/ul Immature Gran # 0.0 0.0 - 0.3 x10 3/ul Absolute Lymphs (auto) 1.4 0.2 - 4.6 x10 3/ul Absolute Monos (auto) 0.6 0.1 - 1.5 x10 3/ul Absolute Eos (auto) 0.0 0.0 - 0.7 x10 3/ul Absolute Basos (auto) 0.0 0.0 - 0.2 x10 3/ul Nucleat RBC Rel Count 0.0 0 - 3 #/100WBC Absolute Nucleated RBC 0.00 x10 3/ul Platelet Evaluation AGREE AGREE Comment:Slide review of plat elets correlates with instrument count. RBC Morphology NORMAL NORMAL Absolute Neutrophils 9800(H) 200 - 8000 /ul 01/11/2018 2:08 PM CDT 01/11/2018 2:14 PM CDT us Tammi Bolaños FIRE CONTROL TECHNICIAN B LAB BLOOD ORDERABLES Final Resu lt [facility] HISTORICAL RESULTS * (ABNORMAL) Comprehensive metabolic panel (01/11/2018 2:08 PM CDT) [facility] Sodium 141 135 - 145 mmol/L Potassium 4.1 3.3 - 5.1 mmol/L Chloride 102 96 - 108 mmol/L Carbon Dioxide 25 22 - 32 mmol/L Anion Gap 14 7 - 16 Glucose 114(H) 70 - 100 mg/dL BUN 13 6 - 20 mg/dL Creatinine 0.7 0.5 [...] or on dialysis @ Est GFR (Cockcroft-G) 225 ml/MIN Comment: Estimated GFR(Cockroft-Gault)is used to calculate patient medication dosage Calcium 10.2(H) 8.6 - 10.0 mg/dL Total Protein 7.9 6.4 - 8.3 g/dL Albumin 5.0 3.5 - 5.2 g/dL Globulin 2.9 2.3 - 3.5 gm/dL Albumin/Globulin Ratio 1.7 1.1 - 1.8 Total Bilirubin 1.3(H) 0.0 - 1.2 mg/dL AST 24 0 - 40 U/L Comment: SLIGHTLY HEMOLYZED: Hemolysis interferes with the above test. 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
--- OUTSIDE RECORDS SUMMARY | 2024-05-26 02:48 | XMS_ITS | Encounter Summary ---
Author Organization [facility] Healthcare Address [address] [place] [id number] Care Team Providers Care Center Receptionist Name Role Phone Unavailable Primary Care Provider Unavailabl e Encounter Details Date Type Department Care Team (Latest Contact Info) Description 01/26/2018 12:14 PM CDT - 01/30/2018 11:13 AM CDT Hospital Encounter [facility] Kiel Johnson MD [address] [place] [address] Gastritis without bleeding; Helicobacter pylori (H. 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 Gender Identity Not on file Sexual Orientation Not on file documented as of this encounter Last Filed Vital Signs Vital Sign Reading Time Taken Comments Blood Pressure 105/58 01/30/2018 8:00 AM CDT Pulse 80 01/30/2018 8:00 AM CDT Temperature 36.8 ??C (98.2 ??F) 01/30/2018 8:00 AM CD T Respiratory Rate - - Oxygen Saturation 97% 01/30/2018 8:00 AM CDT Inhaled Oxygen Concentration - - Weight 121.7 kg (268 lb 3.2 oz) 01/30/2018 8:00 AM CDT Height 185.4 cm (6' 1 ) 01/30/2018 8:00 AM CDT Body Mass Index 35.38 01/30/2018 8:00 AM CDT documented in this encounter Plan of Treatment Not on file documented as of this encounter Procedures Procedure Name Priority Date/Time Associated Diagnosis Comments CBC WITH AUTO DIFFERENTIAL Routine 01/30/2018 5:09 AM CDT COMPREHENSIVE METABOLIC PANEL Routine 01/30/2018 5:09 AM CDT OCCULT BLOOD, FECAL (FIT) Routine 01/28/2018 6:55 PM CDT LIPASE Routine 01/28/2018 11:16 AM CDT AMYLASE Routine 01/28/2018 11:16 AM CDT CBC WITH AUTO DIFFERENTIAL Routine 01/27/2018 4:49 AM CDT BASIC METABOLIC PANEL Routine 01/27/2018 4:49 AM CDT URINALYSIS AND REFLEX TO MICROSCOPIC AND CULTURE Routine 01/26/2018 11:45 PM CDT CBC WITH AUTO DIFFERENTIAL Routine 01/26/2018 11:02 AM CDT COMPREHENSIVE METABOLIC PANEL Routine 01/26/2018 11:02 AM CDT documented in this encounter Results * (ABNORMAL) Comprehensive metabolic panel (01/30/2018 5:09 AM CDT) Sodium 142 135 - 145 mmol/L 01/30/2018 6:46 AM CDT [facility] HISTORICAL RESULTS Potassium 3.3 3.3 - 5.1 mmol/L 01/30/2018 6:46 AM CDT [facility] HISTORICAL RESULTS Chloride 103 96 - 108 mmol/L 01/30/2018 6:46 AM CDT [facility] HISTORICAL RESULTS Carbon Dioxide 23 22 - 32 mmol/L 01/30/2018 6:46 AM CDT [facility] HISTORICAL RESULTS Anion Gap 16 7 - 16 01/30/2018 6:46 AM CDT [facility] HISTORICAL RESULTS Glucose 85 70 - 100 mg/dL 01/30/2018 6:46 AM CDT [facility] HISTORICAL RESULTS BUN 7 6 - 20 mg/dL 01/30/2018 6:46 AM CDT [facility] HISTORICAL RESULTS Creatinine 0.6 0.5 - 1.3 mg/dL Comment: [...] or on dialysis @ Est GFR (Cockcroft-G) 261 ml/MIN Comment: Estimated GFR(Cockroft-Gault)is used to calculate patient medication dosage Calcium 9.1 8.6 - 10.0 mg/dL Total Protein 6.3(L) 6.4 - 8.3 g/dL Albumin 4.0 3.5 - 5.2 g/dL Globulin 2.3 2.3 - 3.5 gm/dL 01/30/2018 6:46 AM T [facility] HISTORICAL RESULTS Albumin/Globulin Ratio 1.7 1.1 - 1.8 01/30/2018 6:46 AM CDT [facility] HISTORICAL RESULTS Total Bilirubin 1.2 0.0 - 1.2 mg/dL 01/30/2018 6:46 AM T [facility] HISTORICAL RESULTS AST 17 0 - 40 U/L 01/30/2018 6:46 AM T [facility] HISTORICAL RESULTS ALT 24 0 - 41 U/L 01/30/2018 6:46 AM T [facility] HISTORICAL RESULTS Alkaline Phosphatase 65 40 - 129 U/L 01/30/2018 6:46 AM T [facility] HISTORICAL RESULTS 01/30/2018 5:09 AM CDT 01/30/2018 6:12 AM CDT us Duc Murcia MD LAB BLOOD ORDERABLES Final Result [facility] HISTORICAL RESULTS * (ABNORMAL) CBC with auto differential (01/30/2018 5:09 AM CDT) WBC 10.8(H) 3.5 - 10.5 x10 3/ul 01/30/2018 6:17 AM T [facility] HISTORICAL RESULTS RBC 5.14 4.11 - 5.71 x10 6/ul 01/30/2018 6:17 AM T [facility] HISTORICAL RESULTS Hemoglobin 14.3 13.0 - 17.0 g/dL 01/30/2018 6:17 AM T [facility] HISTORICAL RESULTS Hct 43.5 38.2 - 48.5 % 01/30/2018 6:17 AM T [facility] HISTORICAL RESULTS MCV 84.6 80.0 - 97.0 fl 01/30/2018 6:17 AM T [facility] HISTORICAL RESULTS MCH 27.8 27.0 - 31.2 pg 01/30/2018 6:17 AM T [facility] HISTORICAL RESULTS MCHC 32.9 31.8 - 35.4 g/dl 01/30/2018 6:17 AM T [facility] HISTORICAL RESULTS RDW 12.5 11.6 - 14.8 % Plt Count 220 150 - 450 X10 3/ul MPV 11.2(H) 7.4 - 10.4 fl Neut % 62.0 37.0 - 85.0 % Immature Gran % 0.5 0.0 - 3.0 % Lymph % 27.4 5.0 - 45.0 % [place] % 9.2 3.0 - 15.0 % Eos % 0.6 0.0 - 7.0 % Baso % 0.3 0.0 - 2.0 % Absolute Neuts (auto) 6.7 1.7 - 8.7 x10 3/ul Immature Gran # 0.1 0.0 - 0.3 x10 3/ul Absolute Lymphs (auto) 3.0 0.2 - 4.6 x10 3/ul Absolute Monos (auto) 1.0 0.1 - 1.5 x10 3/ul Absolute Eos (auto) 0.1 0.0 - 0.7 x10 3/ul Absolute Basos (auto) 0.0 0.0 - 0.2 x10 3/ul Nucleat RBC Rel Count 0.0 0 - 3 #/100WBC 01/30/2018 6:17 AM CDT [facility] HISTORICAL RESULTS Absolute Nucleated RBC 0.00 x10 3/ul 01/30/2018 6:17 AM CDT [facility] HISTORICAL RESULTS Absolute Neutrophils 6800 200 - 8000 /ul 01/30/2018 6:17 AM CDT [facility] HISTORICAL RESULTS 01/30/2018 5:09 AM CDT 01/30/2018 6:12 AM CDT us Duc Murcia MD LAB BLOOD ORDERABLES Final Result Performing Organization Address [facility] Co de Phone Number [facility] HISTORICAL RESULTS * Occult blood, fecal non neoplasm screening (01/28/2018 6:55 PM CDT) Stool Occult Blood NEGATIVE NEGATIVE 01/29/2018 3:23 AM CDT [facility] HISTORICAL RESULTS 01/28/2018 6:55 PM CDT 01/29/2018 3:15 AM CDT Narrative [facility] HISTORICAL RESULTS - 01/29/2018 3:23 AM CDT Collected By rw us Megan Jack NP LAB BODY FLUIDS AND STOOLS ORDER LUCAS Final Result Performing Organization Address [facility] de Phone Number [facility] HISTORICAL RESULTS * Lipase (01/28/2018 11:16 AM CDT) Lipase 14 13 - 60 U/L 01/28/2018 12:14 PM CDT [facility] HISTORICAL RESULTS 01/28/2018 11:1 6 AM CDT 01/28/2018 11:41 AM CDT us Duc Murcia MD LAB BLOOD ORDERABLES Final Result Performing Organization Address [facility] Co de Phone Number [facility] HISTORICAL RESULTS * Amylase (01/28/2018 11:16 AM CDT) Amylase 30 28 - 100 U/L 01/28/2018 12:14 PM CDT [facility] HISTORICAL RESULTS 01/28/2018 11:1 6 AM CDT 01/28/2018 11:41 AM CDT us Duc Murcia MD LAB BLOOD ORDERABLES Final Result [facility] HISTORICAL RESULTS * (ABNORMAL) CBC with auto differential (01/27/2018 4:49 AM CDT) WBC 9.9 3.5 - 10.5 x10 3/ul 01/27/2018 5:34 AM CDT [facility] HISTORICAL RESULTS RBC 4.95 4.11 - 5.71 x10 6/ul 01/27/2018 5:34 AM CDT [facility] HISTORICAL RESULTS Hemoglobin 14.1 13.0 - 17.0 g/dL 01/27/2018 5:34 AM CDT [facility] HISTORICAL RESULTS Hct 42.2 38.2 - 48.5 % 01/27/2018 5:34 AM CDT [facility] HISTORICAL RESULTS MCV 85.3 80.0 - 97.0 fl 01/27/2018 5:34 AM CDT [facility] HISTORICAL RESULTS MCH 28.5 27.0 - 31.2 pg 01/27/2018 5:34 AM CDT [facility] HISTORICAL RESULTS MCHC 33.4 31.8 - 35.4 g/dl 01/27/2018 5:34 AM CDT [facility] HISTORICAL RESULTS RDW 12.8 11.6 - 14.8 % 01/27/2018 5:34 AM CDT [facility] HISTORICAL RESULTS Plt Count 203 150 - 450 X10 3/ul 01/27/2018 5:34 AM CDT [facility] HISTORICAL RESULTS MPV 11.3(H) 7.4 - 10.4 fl 01/27/2018 5:34 AM CDT [facility] HISTORICAL RESULTS Neut % 61.4 37.0 - 85.0 % 01/27/2018 5:34 AM CDT [facility] HISTORICAL RESULTS Immature Gran % 0.5 0.0 - 3.0 % 01/27/2018 5:34 AM CDT [facility] HISTORICAL RESULTS Lymph % 28.6 5.0 - 45.0 % 01/27/2018 5:34 AM CDT [facility] HISTORICAL RESULTS [place] % 8.3 3.0 - 15.0 % 01/27/2018 5:34 AM T [facility] HISTORICAL RESULTS Eos % 1.0 0.0 - 7.0 % Baso % 0.2 0.0 - 2.0 % 01/27/2018 5:34 AM T [facility] HISTORICAL RESULTS Absolute Neuts (auto) 6.1 1.7 - 8.7 x10 3/ul 01/27/2018 5:34 AM T [facility] HISTORICAL RESULTS Immature Gran # 0.1 0.0 - 0.3 x10 3/ul 01/27/2018 5:34 AM T [facility] HISTORICAL RESULTS Absolute Lymphs (auto) 2.8 0.2 - 4.6 x10 3/ul 01/27/2018 5:34 AM T [facility] HISTORICAL RESULTS Absolute Monos (auto) 0.8 0.1 - 1.5 x10 3/ul 01/27/2018 5:34 AM T [facility] HISTORICAL RESULTS Absolute Eos (auto) 0.1 0.0 - 0.7 x10 3/ul 01/27/2018 5:34 AM T [facility] HISTORICAL RESULTS Absolute Basos (auto) 0.0 0.0 - 0.2 x10 3/ul Nucleat RBC Rel Count 0.0 0 - 3 #/100WBC Absolute Nucleated RBC 0.00 x10 3/ul Absolute Neutrophils 6200 200 - 8000 /ul 01/27/2018 4:49 AM CDT 01/27/2018 5:30 AM CDT us Megan Jack NP LAB BLOOD ORDERABLES Final Resul t [facility] HISTORICAL RESULTS * Basic metabolic panel (01/27/2018 4:49 AM CDT) [facility] Sodium 141 135 - 145 mmol/L Potassium 3.8 3.3 - 5.1 mmol/L Chloride 104 96 - 108 mmol/L Carbon Dioxide 23 22 - 32 mmol/L Anion Gap 14 7 - 16 Glucose 78 70 - 100 mg/dL BUN 11 6 - 20 mg/dL Creatinine 0.6 0.5 [...] or on dialysis @ Est GFR (Cockcroft-G) 271 ml/MIN 01/27/2018 5:55 AM [facility]IST[facility] RESULTS Comment: Estimated GFR(Cockroft-Gault)is used to calculate patient medication dosage Calcium 9.0 8.6 - 10.0 mg/dL 01/27/2018 4:49 AM CDT 01/27/2018 5:30 AM CDT us Megan Jack NP LAB BLOOD ORDERABLES Final Resul t [facility] HISTORICAL RESULTS * (ABNORMAL) Urinalysis reflex to microscopic and culture (01/26/2018 11:45 PM CDT) Ur Collection Type CLEAN CATCH 01/27/2018 12:33 AM [facility]ISTOR[facility] RESULTS Ur Culture Indicated? C&S NOT INDICATED 01/27/2018 12:33 AM [facility] HISTORICAL RESULTS Urine Color YELLOW YELLOW 01/27/2018 12:33 AM [facility] HISTORICAL RESULTS Urine Clarity HAZY CLEAR Urine Glucose (UA) NORMAL NORMAL mg/dL 01/27/2018 12:33 AM [facility]ISTOR[facility] RESULTS Urine Bilirubin NEGATIVE NEGATIVE mg/dl 01/27/2018 12:33 AM [facility] HISTORICAL RESULTS Urine Ketones 80(H) NEGATIVE mg/dL 01/27/2018 12:33 AM [facility] HISTORICAL RESULTS Ur Specific [place] 1.028(H) 1.005 - 1.025 01/27/2018 12:33 AM [facility] HISTORICAL RESULTS Urine Blood NEGATIVE NEGATIVE mg/dl 01/27/2018 12:33 AM [facility] HISTORICAL RESULTS Urine pH 5.0 5.0 - 8.0 Urine Protein 30(H) NEGATIVE mg/dL 01/27/2018 12:33 AM T [facility] HISTORICAL RESULTS Urine Urobilinogen NORMAL NORMAL mg/dL 01/27/2018 12:33 AM T [facility] HISTORICAL RESULTS Urine Nitrite NEGATIVE NEGATIVE 01/27/2018 12:33 AM T [facility] HISTORICAL RESULTS Ur Leukocyte Esterase NEGATIVE NEGATIVE Luis/ul 01/27/2018 12:33 AM T [facility] HISTORICAL RESULTS Ur Microscopic Review Indicated or Ordered 01/27/2018 12:33 AM T [facility] HISTORICAL RESULTS Urine RBC 2 0 - 2 /HPF 01/27/2018 12:33 AM T [facility] HISTORICAL RESULTS Urine WBC 2 0 - 2 /HPF 01/27/2018 12:33 AM T [facility] HISTORICAL RESULTS Urine Mucus Marked /LPF 01/26/2018 11:4 5 PM CDT 01/27/2018 12:21 AM CDT Narrative [facility] HISTORICAL RESULTS - 01/27/2018 12:33 AM CDT Indication(s) for ordering ? Other - enter in comments ?? us Spike DAVIS LAB MICROBIOLOGY - GENERAL YASSINE FRIEND Final Result [facility] HISTORICAL RESULTS * (ABNORMAL) Comprehensive metabolic panel (01/26/2018 11:02 AM CDT) Sodium 140 135 - 145 mmol/L 01/26/2018 11:30 AM T [facility] HISTORICAL RESULTS Potassium 3.9 3.3 - 5.1 mmol/L 01/26/2018 11:30 AM T [facility] HISTORICAL RESULTS Chloride 101 96 - 108 mmol/L 01/26/2018 11:30 AM T [facility] HISTORICAL RESULTS Carbon Dioxide 22 22 - 32 mmol/L 01/26/2018 11:30 AM T [facility] HISTORICAL RESULTS Anion Gap 17(H) 7 - 16 01/26/2018 11:30 AM T [facility] HISTORICAL RESULTS Glucose 115(H) 70 - 100 mg/dL 01/26/2018 11:30 AM T [facility] HISTORICAL RESULTS BUN 10 6 - 20 mg/dL Creatinine 0.9 0.5 - 1.3 mg/dL 01/26/2018 11:30 AM [facility] HISTORICAL RESULTS Comment: NOTE: Estimated GFR (Cockroft-Gault) [...] or on dialysis @ Est GFR (Cockcroft-G) 181 ml/MIN 01/26/2018 11:30 AM [facility] HISTORICAL RESULTS Comment: Estimated GFR(Cockroft-Gault)is used to calculate patient medication dosage Calcium 10.1(H) 8.6 - 10.0 mg/dL 01/26/2018 11:30 AM [facility] HISTORICAL RESULTS Total Protein 7.5 6.4 - 8.3 g/dL 01/26/2018 11:30 AM [facility] HISTORICAL RESULTS Albumin 4.7 3.5 - 5.2 g/dL 01/26/2018 11:30 AM CDT [facility] HISTORICAL RESULTS Globulin 2.8 2.3 - 3.5 gm/dL 01/26/2018 11:30 AM CDT [facility] HISTORICAL RESULTS Albumin/Globulin Ratio 1.7 1.1 - 1.8 01/26/2018 11:30 AM CDT [facility] HISTORICAL RESULTS Total Bilirubin 1.2 0.0 - 1.2 mg/dL 01/26/2018 11:30 AM CDT [facility] HISTORICAL RESULTS AST 25 0 - 40 U/L 01/26/2018 11:30 AM CDT [facility] HISTORICAL RESULTS ALT 21 0 - 41 U/L 01/26/2018 11:30 AM CDT [facility] HISTORICAL RESULTS Alkaline Phosphatase 77 40 - 129 U/L 01/26/2018 11:30 AM CDT [facility] HISTORICAL RESULTS 01/26/2018 11:0 2 AM CDT 01/26/2018 11:06 AM CDT us Spike DAVIS LAB BLOOD ORDERABLES Final Resu lt [facility] HISTORICAL RESULTS * (ABNORMAL) CBC with auto differential (01/26/2018 11:02 AM CDT) WBC 11.9(H) 3.5 - 10.5 x10 3/ul 01/26/2018 11:09 AM CDT [facility] HISTORICAL RESULTS RBC 5.69 4.11 - 5.71 x10 6/ul 01/26/2018 11:09 AM CDT [facility] HISTORICAL RESULTS Hemoglobin 15.9 13.0 - 17.0 g/dL 01/26/2018 11:09 AM CDT [facility] Hct 47.5 38.2 - 48.5 % 01/26/2018 11:09 AM CDT [facility] MCV 83.5 80.0 - 97.0 fl 01/26/2018 11:09 AM CDT [facility] MCH 27.9 27.0 - 31.2 pg 01/26/2018 11:09 AM CDT [facility] MCHC 33.5 31.8 - 35.4 g/dl RDW 12.6 11.6 - 14.8 % Plt Count 220 150 - 450 X10 3/ul MPV 10.7(H) 7.4 - 10.4 fl Neut % 77.5 37.0 - 85.0 % Immature Gran % 0.6 0.0 - 3.0 % Lymph % 14.6 5.0 - 45.0 % [place] % 6.0 3.0 - 15.0 % Eos % 1.0 0.0 - 7.0 % Baso % 0.3 0.0 - 2.0 % Absolute Neuts (auto) 9.2(H) 1.7 - 8.7 x10 3/ul Immature Gran # 0.1 0.0 - 0.3 x10 3/ul Absolute Lymphs (auto) 1.7 0.2 - 4.6 x10 3/ul Absolute Monos (auto) 0.7 0.1 - 1.5 x10 3/ul Absolute Eos (auto) 0.1 0.0 - 0.7 x10 3/ul Absolute Basos (auto) 0.0 0.0 - 0.2 x10 3/ul 01/26/2018 11:09 AM CDT [facility] HISTORICAL RESULTS Nucleat RBC Rel Count 0.0 0 - 3 #/100WBC 01/26/2018 11:09 AM CDT [facility] HISTORICAL RESULTS Absolute Nucleated RBC 0.00 x10 3/ul 01/26/2018 11:09 AM CDT [facility] HISTORICAL RESULTS Absolute Neutrophils 9300(H) 200 - 8000 /ul 01/26/2018 11:09 AM T [facility] HISTORICAL RESULTS 01/26/2018 11:0 2 AM CDT 01/26/2018 11:06 AM CDT us Spike DAVIS LAB BLOOD ORDERABLES Final Resu lt [facility] HISTORICAL RESULTS documented in this encounter Visit Diagnoses Diagnosis Gastritis without bleeding Helicobacter pylori (H. pylori) as the cause of diseases classified elsewhere Cyclical vomiting, intractable Other alf (current) drug therapy Adverse effect of cannabis (derivatives), initial encounter Unspecified place or not applicable Anxiety disorder Anxiety state, unspecified documented in this encounter
--- OUTSIDE RECORDS SUMMARY | 2024-05-26 02:48 | XMS_ITS | Encounter Summary ---
Author Organization [facility] Healthcare Address [address] [place] [id number] Care Team Providers Care Chicken Buyer Name Role Phone Unavailable Primary Care Provider Unavailabl e Encounter Details Date Type Department Care Team (Latest Contact Info) Description 10/24/2017 12:46 PM CDT - 10/24/2017 4:27 PM CDT Hospital Encounter [facility], gamal Parker MD [address] [place] [address] Vomiting; Cannabis abuse, uncomplicated; Nicotine dependence, uncomplicated Social History Tobacco Use Types Packs/Day Years Used Date Smoking Tobacco: Never Assessed Sex and Gender Information Value Date Recorded Sex Assigned at Not on file 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 Gender Identity Not on file Sexual Orientation Not on file documented as of this encounter Last Filed Vital Signs Vital Sign Reading Time Taken Comments Blood Pressure 134/58 10/24/2017 12:47 PM CDT Pulse 62 10/24/2017 12:47 PM CDT Temperature 37.1 ??C (98.7 ??F) 10/24/2017 1 2:47 PM CDT Respiratory Rate - - Oxygen Saturation 99% 10/24/2017 12: 47 PM CDT Inhaled Oxygen Concentration - - Weight 125.3 kg (276 lb 3.8 oz) 018 12:47 PM CDT Height 185.4 cm (6' 1 ) 10/24/2017 12:4 7 PM CDT Body Mass Index 36.45 10/24/2017 12:47 PM CDT documented in this encounter Plan of Treatment Not on file documented as of this encounter Visit Diagnoses Diagnosis Vomiting Vomiting alone Cannabis abuse, uncomplicated Nicotine dependence, uncomplicated documented in this encounter
--- OUTSIDE RECORDS SUMMARY | 2024-05-26 02:48 | XMS_ITS | Encounter Summary ---
Author Organization [facility] Healthcare Address [address] [place] [address] Care Team Providers Care Wall And Floor Tiler Name Role Phone Unavailable Primary Care Provider Unavailabl e Encounter Details Date Type Department Care Team (Latest Contact Info) Description 07/15/2012 10:15 PM AIR LIAISON AND SPECIAL STAFF - 07/15/2012 11:53 PM AIR LIAISON AND SPECIAL STAFF Hospital Encounter [facility] ER Hannah Rosenthal, PA [address] [place] [address] Acute upper respiratory infection Social History Tobacco Use Types Packs/Day Years Used Date Smoking Tobacco: Never Assessed Sex and Gender Information Value Date Recorded Sex Assigned at Not on file 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 Gender Identity Not on file Sexual Orientation Not on file documented as of this encounter Last Filed Vital Signs Vital Sign Reading Time Taken Comments Blood Pressure 130/67 07/15/2012 10:18 PM AIR LIAISON AND SPECIAL STAFF Pulse 115 07/15/2012 10:18 PM AIR LIAISON AND SPECIAL STAFF Temperature 36.8 ??C (98.3 ??F) 07/15/2012 10:[address] Respiratory Rate - - Oxygen Saturation 95% 07/15/2012 10:18 PM AIR LIAISON AND SPECIAL STAFF Inhaled Oxygen Concentration - - Weight 122.5 kg (270 lb) 07/15/2012 10:18 PM AIR LIAISON AND SPECIAL STAFF Height 185.4 cm (6' 1 ) 07/15/2012 10:18 PM AIR LIAISON AND SPECIAL STAFF Body Mass Index 35.62 07/15/2012 10:18 PM AIR LIAISON AND SPECIAL STAFF Body Mass Index Percentile 99.46% 07/15/2012 10: 18 PM AIR LIAISON AND SPECIAL STAFF Growth Chart: CDC (Boys, 2-2 0 Years) documented in this encounter Plan of Treatment Not on file documented as of this encounter Procedures Procedure Name Priority Date/Time Associated Diagnosis Comments XR CHEST PA LATERAL 2 VIEWS Routine 07/15/2012 12:00 AM AIR LIAISON AND SPECIAL STAFF documented in this encounter Results * XR Chest Pa Lateral 2 Views (07/15/2012 12:00 AM AIR LIAISON AND SPECIAL STAFF) Anatomical Region Laterality Modality Body, Chest N/A Radiographic Mayra ging 07/15/2012 Impressions 07/15/2012 10:41 PM AIR LIAISON AND SPECIAL STAFF ?? 1. ??Right middle lobe and right lower lobe infiltrates. ??Follow-up recommended. THIS IS AN ELECTRONICALLY VERIFIED REPORT 07/15/2012 10:38 PM: ??Danika Rojo M.D. Danika Rojo M.D. TB:tb 10:38 PM 10:38 PM [EOD] Narrative 07/15/2012 10:41 PM AIR LIAISON AND SPECIAL STAFF EXAMINATION: ??Two-view chest HISTORY: ??Cough TECHNIQUE: ??Frontal and lateral views COMPARISON: ??None FINDINGS: ??The cardiac silhouette is within normal limits in size. ??The central pulmonary vasculature is borderline enlarged. ??The left lung is clear. There are infiltrates noted within the right middle lobe and right lung base. A minimal amount of associated pleural fluid may be present. ??There is no pneumothorax. The osseous structures reveal no acute process. Procedure Note Provider, MD Sherri - 10/12/2020 EXAMINATION: Two-view chest HISTORY: Cough TECHNIQUE: Frontal and lateral views COMPARISON: None FINDINGS: The cardiac silhouette is within normal limits in size. The central pulmonary vasculature is borderline enlarged. The left lung isclear. There are infiltrates noted within the right middle lobe and right lungbase. A minimal amount of associated pleural fluid may be present. There is no pneumothorax. The osseous structures reveal no acute process. IMPRESSION: 1. Right middle lobe and right lower lobe infiltrates. Follow-uprecommended. THIS IS AN ELECTRONICALLY VERIFIED REPORT 07/15/2012 10:38 PM: Danika Rojo M.D. Danika Rojo M.D. TB:tb 10:38 PM 10:38 PM [EOD] Hannah DAVIS IMG XR PROCEDURES Final Resul t documented in this encounter Visit Diagnoses Diagnosis Acute upper respiratory infection Acute upper respiratory infections of unspecified site documented in this encounter
== END 2024-05-19 04:17 | disposition home or self-care (01) ==
LOC: ANHED 05-19 03:12
PROVIDERS: Emergency Provider Emergency Medicine
DX: R11.15 Cyclical vomiting syndrome unrelated to migraine (principal); Z20.822 Contact with and (suspected) exposure to COVID-19
CPT/HCPCS: 36415; 80053; 83605; 83690; 85025; 87637; 96361; 96374; 96375; 96376; 99284; A9270; J1200; J1630; J2405; J2765; J7030

== ENCOUNTER 2024-07-09 11:18 | Emergency (ER) | payer OTHER, SELFPAY ==
--- OUTSIDE RECORDS SUMMARY | 2024-07-09 11:23 | XMS_ITS ---
Author Organization [facility] Address [address] [place] [address] Phone Care Team Providers Care Station Installer And Repairer Name Role Phone Provider, None Primary Care Provider Unavailabl e [facility] Status:Enrolled (Active) Start date:06/08/2024 Enrollment date:06/08/2024 Related social drivers of health:Social Connections, Alcohol Use, Tobacco Use, Financial Resource Strain, Depression, Stress, Physical Activity Continued Care and Services Coordination
--- OUTSIDE RECORDS SUMMARY | 2024-07-09 11:23 | XMS_ITS | Clinical Summary ---
Author Organization [facility] Address [address] [place] [address] Phone Care Team Providers Care Cattle Sorter Name Role Phone Unavailable Primary Care Provider Unavailabl e Allergies No known active allergies Medications escitalopram oxalate (LEXAPRO) 20 mg tablet Take 20 mg by mouth daily. Active ondansetron (ZOFRAN ODT) 4 mg Tablet, Rapid Dissolve Take 1 Tablet (4 mg) by mouth every 8 hours as needed for Nausea/Emesis . Dissolve tablet on top of tongue, then [...] at Not on file Legal Sex Male 7:19 AM CDT Gender Identity Not on file Sexual Orientation Not on file Last Filed Vital Signs Vital Sign Reading Time Taken Comments Blood Pressure 135/69 10/11/2022 11:00 AM CDT Pulse 77 10/11/2022 11:00 AM CDT Temperature 36.5 C (97.7 F) 10/11/2022 10:14 AM CDT Respiratory Rate 18 10/11/2022 11:00 AM CDT [...] patient's age to complete this topic Insurance Swrve OPEN ACCESS HMO
--- OUTSIDE RECORDS SUMMARY | 2024-07-09 11:24 | XMS_ITS | Clinical Summary ---
Author Organization [facility] Address [address] [place] [address] Phone Care Team Providers Care Decontamination Technician Name Role Phone Provider, None Primary Care [...] Encounters Date Type Department Care Team Description 06/09/2024 Patient Outreach [facility] [address] [place] [phone] Navigator, Digital Health Social Concerns 04/27/2024 Telephone [facility] Call [facility] [address] [place] [phone] Provider, None New Patient 04/24/2024 9:24 AM GREENSTONE POLISHER OPERATOR - 04/25/2024 4:10 PM GREENSTONE POLISHER OPERATOR [facility] [address] [place] [address] Indra Nair MD Sagar, Fnu, MD Cannabinoid hyperemesis syndrome Discharge Disposition: Discharged to home or Selfcare 04/24/2024 Travel from Last 3 Months Social History Tobacco Use Types Packs/Day Years Used Date Smoking Tobacco: Never Assessed [facility] Utilities Answer Date Recorded In the [...] any time in the past 12 m [facility], were you homeless or living in a intermediate (including now)? No 04/24/2024 Sex and Gender Information Value Date Recorded Sex Assigned at Not on file Legal Sex Male 5:01 AM CDT Gender Identity Not on file Sexual Orientation Not on file Last Filed Vital Signs Vital Sign Reading Time Taken Comments Blood Pressure 126/74 04/25/2024 5:20 AM GREENSTONE POLISHER OPERATOR Pulse 72 04/25/2024 5:20 AM GREENSTONE POLISHER OPERATOR Temperature 36.8 C (98.3 F) 04/25/2024 5:20 AM GREENSTONE POLISHER OPERATOR Respiratory Rate 18 04/25/2024 5:20 AM GREENSTONE POLISHER OPERATOR Oxygen Saturation 99% 04/25/2024 5:20 AM GREENSTONE POLISHER OPERATOR Inhaled Oxygen Concentration - - Weight 129.3 kg (285 lb) 04/24/2024 9:15 AM GREENSTONE POLISHER OPERATOR Height 182.9 cm (6') 04/24/2024 9:15 AM GREENSTONE POLISHER OPERATOR Body Mass Index 38.65 04/24/2024 9:15 AM GREENSTONE POLISHER OPERATOR Plan of Treatment Health Maintenance Due Date Last Done Comments Hepatitis C Virus (HCV) Screening 1998 TdaP Immunization 1998 Hepatitis B Immunization (3 of 3 - 3-dose series) 06/12/1999 04/17/1999, 1998 Human Papillomavirus (HPV) Immunization (1 - Male 3-dose series) 2013 Influenza Immunization (#1) 2024 SARS-COV-2 Immunization ( - season) 2024 Respiratory Syncytial Virus (RSV) Immunization [...] WITH AUTO DIFFERENTIAL Routine 04/25/2024 1:00 PM GREENSTONE POLISHER OPERATOR CMP (COMPREHENSIVE METABOLIC PANEL) Routine 04/25/2024 1:00 PM GREENSTONE POLISHER OPERATOR COMPLETE BLOOD COUNT (CBC) WITH DIFF Routine 04/25/2024 1:00 PM GREENSTONE POLISHER OPERATOR PHOSPHORUS (PO4) Routine 04/25/2024 1:00 PM GREENSTONE POLISHER OPERATOR EKG 12 LEAD STAT 04/25/2024 1:40 AM GREENSTONE POLISHER OPERATOR EKG SCAN 04/25/2024 12:00 AM GREENSTONE POLISHER OPERATOR UR DRUG SCREEN W/O CONFIRMATION STAT 04/24/2024 3:43 PM GREENSTONE POLISHER OPERATOR CBC WITH AUTO DIFFERENTIAL STAT 04/24/2024 10:11 AM GREENSTONE POLISHER OPERATOR PHOSPHORUS (PO4) STAT 04/24/2024 10:1 1 AM GREENSTONE POLISHER OPERATOR MAGNESIUM (MG) STAT 04/24/2024 10:11 AM GREENSTONE POLISHER OPERATOR COMPLETE BLOOD COUNT (CBC) WITH DIFF STAT 04/24/2024 10:11 AM GREENSTONE POLISHER OPERATOR CMP (COMPREHENSIVE METABOLIC PANEL) STAT 04/24/2024 10:11 AM GREENSTONE POLISHER OPERATOR from Last 3 Months Results * (ABNORMAL) CBC with Auto Differential (04/25/2024 1:00 PM GREENSTONE POLISHER OPERATOR) Only the most recent of2 resultswithin the time period is included. WBC 15.59(H) 4.00 - 12.00 10(3)/mcL 04/25/2024 1:18 PM GREENSTONE POLISHER OPERATOR [facility] RBC 5.27 4.40 - 5.80 10(6)/[facility] 04/25/2024 1:18 PM [facility] HEMOGLOBIN (HGB) 14.6 13.0 - 16.5 g/dL 04/25/2024 1:18 PM [facility] HEMATOCRIT (HCT) 42.9 38.0 - 50.0 % 04/25/2024 1:18 PM [facility] MCV 81.4(L) 82.0 - 96.0 fL 04/25/2024 1:18 PM [facility] MCH 27.7 26.0 - 32.0 pg 04/25/2024 1:18 PM [facility] MCHC 34.0 31.0 - 36.0 g/dL 04/25/2024 1:18 PM [facility] PLATELET COUNT 241 140 - 440 10(3)/[facility] 04/25/2024 1:18 PM [facility] RDW 12.7 11.8 - 15.5 % 04/25/2024 1:18 PM [facility] MPV 10.5 8.0 - 12.6 fL 04/25/2024 1:18 PM [facility] NEUTROPHILS 82.6(H) 40.0 - 68.0 % 04/25/2024 1:18 PM [facility] LYMPHOCYTES 10.1(L) 19.0 - 49.0 % 04/25/2024 1:18 PM GREENSTONE POLISHER OPERATOR [facility] MONOCYTES 7.2 3.0 - 13.0 % 04/25/2024 1:18 PM GREENSTONE POLISHER OPERATOR [facility] EOSINOPHILS 0.0 0.0 - 8.0 % 04/25/2024 1:18 PM GREENSTONE POLISHER OPERATOR [facility] BASOPHILS 0.1 0.0 - 1.0 % 04/25/2024 1:18 PM GREENSTONE POLISHER OPERATOR [facility] ABSOLUTE NEUTROPHILS 12.87(H) 1.40 - 5.30 10(3)/mcL 04/25/2024 1:18 PM GREENSTONE POLISHER OPERATOR [facility] ABSOLUTE LYMPHOCYTES 1.57 0.90 - 3.30 10(3)/[facility] 04/25/2024 1:18 PM [facility] ABSOLUTE MONOCYTES 1.13(H) 0.10 - 0.90 10(3)/[facility] 04/25/2024 1:18 PM GREENSTONE POLISHER OPERATOR [facility] ABSOLUTE EOSINOPHIL 0.00 0.00 - 0.50 10(3)/[facility] 04/25/2024 1:18 PM [facility] ABSOLUTE BASOPHILS 0.02 0.00 - 0.10 10(3)/[facility] 04/25/2024 1:18 PM GREENSTONE POLISHER OPERATOR [facility] NRBC PER 100 WBC 0 04/25/20 24 1:18 PM GREENSTONE POLISHER OPERATOR [facility] Blood Venipuncture / Unknown 04/25/2024 1:00 PM GREENSTONE POLISHER OPERATOR 04/25/2024 1:08 PM GREENSTONE POLISHER OPERATOR us Bhanuu Kiko GARCIA HEMATOLOGY ORDERABLES Final Resu lt Performing Organization Address City/State/[facility] Co de Phone Number [facility] [address] [facility] [place] [address], * (ABNORMAL) PHOSPHORUS (PO4) (04/25/2024 1:00 PM GREENSTONE POLISHER OPERATOR) Only the most recent of2 resultswithin the time period is included. PHOSPHORUS 2.4(L) 2.5 - 4.5 mg/dL 04/25/2024 1:46 PM GREENSTONE POLISHER OPERATOR [facility] Blood Venipuncture / Unknown 04/25/2024 1:00 PM GREENSTONE POLISHER OPERATOR 04/25/2024 1:08 PM GREENSTONE POLISHER OPERATOR us Carter Hoover MD CHEMISTRY ORDERABLES Final Resul t [facility] [address] [place] [address], [place] * (ABNORMAL) Comprehensive Metabolic Panel (CMP) (04/25/2024 1:00 PM GREENSTONE POLISHER OPERATOR) Only the most recent of2 resultswithin the time period is included. SODIUM 137 136 - 145 mmol/L 04/25/2024 1:46 PM GREENSTONE POLISHER OPERATOR [facility] POTASSIUM 3.4(L) 3.5 - 5.1 mmol/L 04/25/2024 1:46 PM GREENSTONE POLISHER OPERATOR [facility] CHLORIDE 107 98 - 107 mmol/L 04/25/2024 1:46 PM [facility] CO2, VENOUS 20(L) 22 - 30 mmol/L 04/25/2024 1:46 PM GREENSTONE POLISHER OPERATOR [facility] ANION GAP 10.0 <18.0 mmol/L 04/25/2024 1:46 PM GREENSTONE POLISHER OPERATOR [facility] GLUCOSE 127(H) 70 - 99 mg/dL 04/25/2024 1:46 PM GREENSTONE POLISHER OPERATOR [facility] BUN 7(L) 9 - 21 mg/dL 04/25/2024 1:46 PM GREENSTONE POLISHER OPERATOR [facility] CREATININE, BLOOD 0.76 0.70 - 1.30 mg/dL 04/25/2024 1:46 PM [facility] BUN/CREATININE RATIO 9(L) 12 - 20 ratio 04/25/2024 1:46 PM GREENSTONE POLISHER OPERATOR [facility] TOTAL PROTEIN 6.9 6.3 - 8.2 g/dL 04/25/2024 1:46 PM GREENSTONE POLISHER OPERATOR [facility] ALBUMIN 4.3 3.5 - 5.0 g/dL 04/25/2024 1:46 PM [facility] A/G RATIO 1.7 1.0 - 2.2 04/25/2024 1:46 PM [facility] CALCIUM 9.0 8.7 - 10.5 mg/dL 04/25/2024 1:46 PM GREENSTONE POLISHER OPERATOR [facility] T BILI 1.0 0.2 - 1.2 mg/dL 04/25/2024 1:46 PM GREENSTONE POLISHER OPERATOR [facility] SGOT (AST) 16 5 - 34 U/L 04/25/2024 1:46 PM GREENSTONE POLISHER OPERATOR [facility] SGPT (ALT) 23 0 - 55 U/L 04/25/2024 1:46 PM GREENSTONE POLISHER OPERATOR [facility] ALKALINE PHOSPHATASE 87 40 - 150 U/L 04/25/2024 1:46 PM GREENSTONE POLISHER OPERATOR [facility] GFR, ESTIMATED >60 >=60 04/25/2024 1:46 PM GREENSTONE POLISHER OPERATOR [facility] Comment: Creatinine Clearance is the preferred criteria for selecting drug dose adjustments in renally impaired patients. The GFR is provided as additional pertinent clinical information. GFR is reported in mL/min/1.73 sq m. Calculation based on the Chronic Kidney Disease Epidemiology Collaboration (CKD- EPI) equation refit without adjustment for race. GFR, EST. >60 >=60 024 1:46 PM GREENSTONE POLISHER OPERATOR [facility] GFR, EST. NONAFRICAN >60 >=60 04/25/2024 1:46 PM GREENSTONE POLISHER OPERATOR [facility] Blood Venipuncture / Unknown 04/25/2024 1:00 PM GREENSTONE POLISHER OPERATOR 04/25/2024 1:08 PM GREENSTONE POLISHER OPERATOR us Carter Hoover MD CHEMISTRY ORDERABLES Final Resul t Performing Organization Address City/State/[facility] Co de Phone Number [facility] [address] [place] [address], * EKG 12 LEAD (04/25/2024 1:40 AM GREENSTONE POLISHER OPERATOR) Ventricular Rate 62 BPM EXTERNAL EKG Atrial Rate 62 BPM EXTERNAL EKG P-R Interval 146 ms EXTERNAL EKG QRS Duration 110 ms EXTERNAL EKG Q-T Duration 412 ms EXTERNAL EKG QTC CALCULATION 418 ms EXTERNAL EKG P [place] 16 degrees EXTERNAL EKG R [place] 61 degrees EXTERNAL EKG T [place] 30 degrees EXTERNAL EKG 04/25/2024 1:40 AM GREENSTONE POLISHER OPERATOR Impressions EXTERNAL EKG - 04/25/2024 6:09 AM GREENSTONE POLISHER OPERATOR NORMAL SINUS RHYTHM WITH SINUS ARRHYTHMIA INCOMPLETE RIGHT BUNDLE BRANCH BLOCK BORDERLINE ECG ~ Confirmed by Hernan Merchant Siddharth ([id number]) on 04/25/2024 6:09:38 AM Narrative Procedure Note Carlton Merchant MD - 04/25/2024 IMPRESSION: NORMAL SINUS RHYTHM WITH SINUS ARRHYTHMIA INCOMPLETE RIGHT BUNDLE BRANCH BLOCK BORDERLINE ECG ~ Confirmed by Hernan Merchant Siddharth ([id number]) on 04/25/2024 6:09:38 AM Leonard Samson MD IMG ECG ORDERABLE S Final Result EXTERNAL EKG * EKG SCAN (04/25/2024 12:00 AM GREENSTONE POLISHER OPERATOR) 04/25/2024 us Provider Scan IMG ECG ORDERABLES Final Result RESULTING AGENCY * (ABNORMAL) Ur Drug Screen w/o Confirmation (04/24/2024 3:43 PM GREENSTONE POLISHER OPERATOR) UR AMPHETAMINE NON DETECTED NON DETECTED 04/24/2024 4:22 PM GREENSTONE POLISHER OPERATOR [facility] Comment: FOR MEDICAL USE ONLY. CUTOFF CONCENTRATION FOR DETECTED RESULT: AMPHETAMINE: 500 NG/ML UR BARBITURATE NON DETECTED NON DETECTED 04/24/2024 4:22 PM GREENSTONE POLISHER OPERATOR [facility] Comment: FOR MEDICAL USE ONLY. CUTOFF CONCENTRATION FOR DETECTED RESULT: BARBITUATES: 200 NG/ML UR BENZODIAZEPINES NON DETECTED NON DETECTED 04/24/2024 4:22 PM GREENSTONE POLISHER OPERATOR [facility] Comment: FOR MEDICAL USE ONLY. CUTOFF CONCENTRATION FOR DETECTED RESULT: BENZODIAZAPINE: 200 NG/ML UR COCAINE METABOLITE NON DETECTED NON DETECTED 04/24/2024 4:22 PM GREENSTONE POLISHER OPERATOR [facility] Comment: FOR MEDICAL USE ONLY. CUTOFF CONCENTRATION FOR DETECTED RESULT: COCAINE: 150 NG/ML UR OPIATES DETECTED(A) NON DETECTED 04/24/2024 4:22 PM GREENSTONE POLISHER OPERATOR [facility] Comment: FOR MEDICAL USE ONLY. CUTOFF CONCENTRATION FOR DETECTED RESULT: OPIATES: 300 NG/ML UR PHENCYCLIDINE NON DETECTED NON DETECTED 04/24/2024 4:22 PM GREENSTONE POLISHER OPERATOR [facility] Comment: FOR MEDICAL USE ONLY. CUTOFF CONCENTRATION FOR DETECTED RESULT: PCP: 25 NG/ML UR CANNABINOID DETECTED(A) NON DETECTED 04/24/2024 4:22 PM GREENSTONE POLISHER OPERATOR [facility] Comment: FOR MEDICAL USE ONLY. CUTOFF CONCENTRATION FOR DETECTED RESULT: THC (MARIJUANA): 50 NG/ML Urine Non-Phlebotomy Collection / Unknown 04/24/2024 3:43 PM GREENSTONE POLISHER OPERATOR 04/24/2024 3:44 PM GREENSTONE POLISHER OPERATOR us Carter Hoover MD URINE ORDERABLES Final Result Performing Organization Address [facility] Co de Phone Number [facility] [address] [place] [address], * Magnesium (Mg) (04/24/2024 10:11 AM GREENSTONE POLISHER OPERATOR) MAGNESIUM 1.7 1.6 - 2.6 mg/dL 04/24/2024 10:58 AM GREENSTONE POLISHER OPERATOR [facility] Blood Venipuncture / Unknown 04/24/2024 10:11 AM GREENSTONE POLISHER OPERATOR 04/24/2024 10:15 AM GREENSTONE POLISHER OPERATOR Indra Nair MD CHEMISTRY ORDERABLES Fin al Result Performing Organization Address City/[facility] Co de Phone Number [facility] [address] [place] [address], from Last 3 Months Insurance MEDICAID [employer] [facility] Advance Directives * Full Code (Latest Code Status on File) Date Activated Date Inactivated Comments 04/24/2024 12:36 PM CPR-Full Nj atment: FULL ARREST: Attempt Resuscitation/CPR wit intubation and mechanical ventilation. PRE-ARREST: Use entire range of life support measures to stabilize the patient. Care Teams Decontamination Technician Relationship Specialty Start Date End Date Provider, None [place] PCP - General 01/15/22
--- OUTSIDE RECORDS SUMMARY | 2024-07-09 11:24 | XMS_ITS | Clinical Summary ---
Author Organization [place] [id number] [facility] Address [facility] [place] [address] Care Team Providers Care Carriage Setter Name Role Phone Osbaldo Hong MD Primary Care Provider [phone] Allergies No known active allergies Medications pregabalin [...] Department Care Team Description 05/18/2024 1:38 PM [facility] - 05/18/2024 2:27 PM [facility] Emergency [facility] Emergency Department [address] [place] [id number] Discharge Disposition: Left without being seen from Last 3 Months Medical History Medical History Date Comments Polysubstance abuse (CMS/HCC) (HCC) Marijuana use Social History Tobacco Use Types Packs/Day Years Used Date Smoking Tobacco: Never Smokeless Tobacco: Never Alcohol Use Standard Drinks/Week Comments Not Currently 0 (1 standard drink = 0.6 oz pur e alcohol) [facility] Utilities Answer Date Recorded In the [...] often do you attend chur ch or baptism services? Never 11/15/2023 Do you belong to any clubs o r organizations such as yazidism groups, unions, fraternal or athletic groups, or [...] time in the past 12 m [facility], were you homeless or living in a intermediate (including now)? No 11/15/2023 Personal Safety Answer Date Recorded Have you ever been in or are you currently in a harmful physical or emotional relationship or is someone making you feel afraid or unsafe? 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 Sex Male 6:55 PM [facility] Gender Identity Not on file Sexual Orientation Not on file Obstetrics History Last Filed Vital Signs Vital Sign Reading Time Taken Comments Blood Pressure 135/93 11/17/2023 7:43 AM CDT Pulse 76 11/17/2023 7:43 AM CDT Temperature 36.7 C (98.1 F) 11/17/2023 7:43 AM CDT Respiratory Rate 18 11/17/2023 7:43 AM CDT [...] 18-64 2016 Influenza Vaccine (#1) 2024 Hepatitis B Screening Completed 04/17/1999, 999 Hepatitis C Screening Completed 11/14/2023 Pneumococcal vaccine [...] 19. Hep B core IgM Nonreactive Nonreactive [facility] Comment: Interpretive Data If HepB Core IgM Ab is reported as Equivocal, a new sample should be drawn in two weeks for testing. Current interpretive data was last revised on 19. Hep C Ab Nonreactive Nonreactive [facility] Comment: Antibodies to HCV not detected. Does [...] in accordance with current CDC screening recommendations. Reactive: Positive for HCV antibodies. This may represent current or past HCV infection. Supplemental molecular testing will be automatically performed to determine current infection status in accordance with current CDC screening recommendations. Interpretive data was last revised on 2019. HepBsAg Nonreactive Nonreactive [facility] Blood 11/14/2023 8:48 PM CDT 11/14/2023 9:19 PM CDT Javon Garcia MD LAB MICROBIOLOGY - NERAL ORDERABLES Final Result Performing Organization Address City/State/[facility] Co de Phone Number [facility] [address] [facility] [place] [address] from Last 3 Months or Most Recently Relevant to Health Maintenance Insurance [facility] CIG Advance Directives For more information, please contact: [phone] * Full Code (Latest Code Status on File) Date Activated Date Inactivated Comments 11/14/2023 4:42 PM 11/17/2023 5:47 PM Care Teams Carriage Setter Relationship Specialty Start Date End Date Osbaldo Hong MD [address] [place] [address] PCP - General 01/13/19
--- OUTSIDE RECORDS SUMMARY | 2024-07-09 11:24 | XMS_ITS | Clinical Summary ---
Author Organization [facility] Address [facility] [place] [address] Care Team Providers Care Preservationist Name Role Phone Osbaldo Hong MD Primary [...] Active Active Problems No known active problems Encounters Date Type Department Care Team Description 05/29/2024 Scan [facility] INFO SRVCS Scanned, Doc Med Group from Last 3 Months Immunizations Name Administration Dates Next Due Dtap [...] 79 10/15/2023 9:38 PM CDT Temperature 36.4 C (97.6 F) 10/15/2023 4:50 PM CDT Respiratory Rate 16 10/15/2023 9:38 PM CDT [...] 2009 12/28/2003, 01/15/2000, 04/17/1999, Additional history exists PHQ-2 (Physician [place]) 2010 HPV Vaccines (1 - Male 3-dose series) 2013 Hepatitis C 2016 COVID-19 Vaccine ( season) 2024 Influenza Adult (#1) 2024 PHQ-2 (Physician [place]) 05/27/2024 Meningococcal B Vaccine Aged Out No l onger eligible based on patient's age to complete this topic Meningococcal Vaccine Aged Out No vinay matty eligible based on patient's age to complete this topic Pneumococcal Vaccine: Pediatrics (0 to 5 Years) and At-Risk Patients (6 to 64 Years) Aged Out No longer eligible based on patient's age to complete this topic RSV Immunizations Under 20 Months Aged Out No longer eligible based on patient's age to complete this topic Insurance Care Teams Preservationist Relationship Specialty Start Date End Date Osbaldo Hong MD PCP - General FAMILY PRACTICE 11/30/21
--- OUTSIDE RECORDS SUMMARY | 2024-07-09 11:24 | XMS_ITS | Referral Summary ---
Author Organization [place] [address] [facility] Address [address] [place] [address] Care Team Providers Care Vocational Nurse Lvn Name Role Phone Osbaldo Hong MD Primary Care Provider +1- [phone] Encounters Date Type Department Care Team Description 05/18/2024 1:38 PM CASE CONSULTANT - 05/18/2024 2:27 PM [facility] Emergency Department [address] [place] [id number] Discharge Disposition: Left without being seen from [...] drink = 0.6 oz pur e alcohol) [facility] Utilities Answer Date Recorded In [...] often do you attend chur ch or zoroastrian services? Never 11/15/2023 Do you belong to any clubs o r organizations such as uatsdin groups, unions, fraternal or athletic groups, or [...] any time in the past 12 m [facility], were you homeless or living in a jail (including now)? No 11/15/2023 Personal Safety Answer Date Recorded Have you ever been in or are you currently in a harmful physical or emotional relationship or is someone making you feel afraid or unsafe? 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 Sex Male 6:55 PM CASE CONSULTANT Gender Identity Not on file Sexual [...] 19. Hep B core IgM Nonreactive Nonreactive [facility] Comment: Interpretive Data If HepB Core IgM [...] last revised on 2019. HepBsAg Nonreactive Nonreactive [facility] Blood 11/14/2023 8:48 PM CDT 11/14/2023 9:19 PM CDT us Javon Garcia MD LAB MICROBIOLOGY - NERAL ORDERABLES Final Result [place] [address] [facility] Department [place] [address] from Last 3 Months or Most Recently Relevant to Health Maintenance Insurance [facility] CIGNA AETNA BETTER [facility] Advance Directives For more information, please contact: [phone] * Full Code (Latest Code Status on File) Date Activated Date Inactivated Comments 11/14/2023 4:42 PM 11/17/2023 5:47 PM Care Teams Vocational Nurse Lvn Relationship Specialty Start Date End Date Osbaldo Hong MD [address] [place] [address] PCP - General 01/13/19
[2024-07-09 11:35] VITALS: BP 159/84; PULSE 80; RESP 16; TEMP 37; O2SAT 100
--- OUTSIDE RECORDS SUMMARY | 2024-07-09 12:44 | XMS_ITS | Clinical Summary ---
Author Organization [facility] Address [address] [place] [address] Phone Care Team Providers Care Embroidery Supervisor Name Role Phone Unavailable Primary Care Provider [...] patient's age to complete this topic Insurance [employer] OPEN ACCESS HMO
--- OUTSIDE RECORDS SUMMARY | 2024-07-09 12:44 | XMS_ITS ---
Author Organization [facility] Address [address] [place] [address] Phone Care Team Providers Care Stencil Typist Name Role Phone Provider, None Primary Care Provider Unavailabl e [facility] Status:Enrolled (Active) Start date:06/08/2024 Enrollment date:06/08/2024 Related social drivers of health:Social Connections, Alcohol Use, Tobacco Use, Financial Resource Strain, Depression, Stress, Physical Activity Continued Care and Services Coordination
--- OUTSIDE RECORDS SUMMARY | 2024-07-09 12:44 | XMS_ITS | Referral Summary ---
Author Organization [place] [address] [facility] [place] Address [address] [place] [address] Care Team Providers Care Survey Interviewer Name Role Phone Osbaldo Hong MD Primary Care Provider +1- [phone] Encounters Date Type Department Care Team Description 05/18/2024 1:38 PM TELEVISION PROGRAM DIRECTOR - 05/18/2024 2:[address] [facility] Emergency Department [address] [place] [address] Discharge Disposition: Left without being seen from [...] drink = 0.6 oz pur e alcohol) [facility] Utilities Answer Date Recorded [...] often do you attend chur ch or anabaptist services? Never 11/15/2023 Do you belong to any clubs o r organizations such as catholic groups, unions, fraternal or athletic groups, or [...] the past 12 m [facility], were you homeless or living in a penitentiary (including now)? No 11/15/2023 Personal Safety Answer Date Recorded Have you ever been in or are you currently in a harmful physical or emotional relationship or is someone making you feel afraid or unsafe? 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 Sex Male 6:55 PM TELEVISION PROGRAM DIRECTOR Gender Identity Not on file Sexual [...] 19. Hep B core IgM Nonreactive Nonreactive [facility] Comment: Interpretive Data If HepB Core IgM [...] - NERAL ORDERABLES Final Result [place] [address] [facility] [place] [address] from Last 3 Months or Most Recently Relevant to Health Maintenance Insurance [facility] CIGNA AETNA BETTER [facility] Advance Directives For more information, please contact: [phone] * Full Code (Latest Code Status on File) Date Activated Date Inactivated Comments 11/14/2023 4:42 PM 11/17/2023 5:47 PM Care Teams Survey Interviewer Relationship Specialty Start Date End Date Osbaldo Hong MD [address] [place] [address] PCP - General 01/13/19
--- OUTSIDE RECORDS SUMMARY | 2024-07-09 12:44 | XMS_ITS | Clinical Summary ---
Author Organization [place] [address] [facility] Address formerly [facility] [place] [address] Care Team Providers Care Apparatus Operator Name Role Phone Osbaldo Hong MD Primary Care Provider +1- [phone] Allergies No known active allergies Medications pregabalin [...] Department Care Team Description 05/18/2024 1:38 PM CHIEF ENVIRONMENTAL COMMITMENT OFFICER - 05/18/2024 2:27 PM [email or web address] Emergency [facility] Emergency Department [address] [place] [id number] Discharge Disposition: Left without being seen from Last 3 Months Medical History Medical History Date Comments Polysubstance abuse (CMS/HCC) (HCC) Marijuana use Social History Tobacco Use Types Packs/Day Years Used Date Smoking Tobacco: Never Smokeless Tobacco: Never Alcohol Use Standard Drinks/Week Comments Not Currently 0 (1 standard drink = 0.6 oz pur e alcohol) [facility] Utilities Answer Date Recorded In the [...] often do you attend chur ch or gnosticist services? Never 11/15/2023 Do you belong to any clubs o r organizations such as jewish groups, unions, fraternal or athletic groups, or [...] any time in the past 12 m [facility], were you homeless or living in a skilled nursing (including now)? No 11/15/2023 Personal Safety Answer Date Recorded Have you ever been in or are you currently in a harmful physical or emotional relationship or is someone making you feel afraid or unsafe? 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 Sex Male 6:55 PM CHIEF ENVIRONMENTAL COMMITMENT OFFICER Gender Identity Not on file Sexual Orientation [...] 19. Hep B core IgM Nonreactive Nonreactive [facility] Comment: Interpretive Data If HepB Core IgM Ab is reported as Equivocal, a new sample should be drawn in two weeks for testing. Current interpretive data was last revised on 19. Hep C Ab Nonreactive Nonreactive [facility] Comment: Antibodies to HCV not detected. [...] last revised on 2019. HepBsAg Nonreactive Nonreactive [facility] Blood 11/14/2023 8:48 PM CDT 11/14/2023 9:19 PM CDT Javon Garcia MD LAB MICROBIOLOGY - NERAL ORDERABLES Final Result Performing Organization Address City/State/[facility] Co de Phone Number [facility] [address] [facility] Department [place] [address] from Last 3 Months or Most Recently Relevant to Health Maintenance Insurance [facility] CIG Advance Directives For more information, please contact: [phone] * Full Code (Latest Code Status on File) Date Activated Date Inactivated Comments 11/14/2023 4:42 PM 11/17/2023 5:47 PM Care Teams Apparatus Operator Relationship Specialty Start Date End Date Osbaldo Hong MD [address] [place] [address] PCP - General 01/13/19
--- OUTSIDE RECORDS SUMMARY | 2024-07-09 12:44 | XMS_ITS | Clinical Summary ---
Author Organization [facility] Address [address] [place] [address] Phone Care Team Providers Care Director Teen Post Name Role Phone Provider, None Primary Care [...] Description 06/09/2024 Patient Outreach [facility] [address] [place] [phone] Navigator, Digital Health Social Concerns 04/27/2024 Telephone [facility] [address] [place] [phone] Provider, None New Patient 04/24/2024 9:24 AM DURABLE MEDICAL EQUIPMENT REPAIRER - 04/25/2024 4:10 PM DURABLE MEDICAL EQUIPMENT REPAIRER [facility] [address] [place] [address] Indra Nair MD Sagar, Fnu, MD Cannabinoid hyperemesis syndrome Discharge Disposition: Discharged to home or Selfcare 04/24/2024 Travel from Last 3 Months Social History Tobacco Use Types Packs/Day Years Used Date Smoking Tobacco: Never Assessed [facility] Utilities Answer Date Recorded In the [...] any time in the past 12 m [facility], were you homeless or living in a prison (including now)? No 04/24/2024 Sex and Gender Information Value Date Recorded Sex Assigned at Not on file Legal Sex Male 5:01 AM CDT Gender Identity Not on file Sexual Orientation Not on file Last Filed Vital Signs Vital Sign Reading Time Taken Comments Blood Pressure 126/74 04/25/2024 5:20 AM DURABLE MEDICAL EQUIPMENT REPAIRER Pulse 72 04/25/2024 5:20 AM DURABLE MEDICAL EQUIPMENT REPAIRER Temperature 36.8 C (98.3 F) 04/25/2024 5:20 AM DURABLE MEDICAL EQUIPMENT REPAIRER Respiratory Rate 18 04/25/2024 5:20 AM DURABLE MEDICAL EQUIPMENT REPAIRER Oxygen Saturation 99% 04/25/2024 5:20 AM DURABLE MEDICAL EQUIPMENT REPAIRER Inhaled Oxygen Concentration - - Weight 129.3 kg (285 lb) 04/24/2024 9:15 AM DURABLE MEDICAL EQUIPMENT REPAIRER Height 182.9 cm (6') 04/24/2024 9:15 AM DURABLE MEDICAL EQUIPMENT REPAIRER Body Mass Index 38.65 04/24/2024 9:15 AM DURABLE MEDICAL EQUIPMENT REPAIRER Plan of Treatment Health Maintenance Due Date [...] WITH AUTO DIFFERENTIAL Routine 04/25/2024 1:00 PM DURABLE MEDICAL EQUIPMENT REPAIRER CMP (COMPREHENSIVE METABOLIC PANEL) Routine 04/25/2024 1:00 PM DURABLE MEDICAL EQUIPMENT REPAIRER COMPLETE BLOOD COUNT (CBC) WITH DIFF Routine 04/25/2024 1:00 PM DURABLE MEDICAL EQUIPMENT REPAIRER PHOSPHORUS (PO4) Routine 04/25/2024 1:00 PM DURABLE MEDICAL EQUIPMENT REPAIRER EKG 12 LEAD STAT 04/25/2024 1:40 AM DURABLE MEDICAL EQUIPMENT REPAIRER EKG SCAN 04/25/2024 12:00 AM DURABLE MEDICAL EQUIPMENT REPAIRER UR DRUG SCREEN W/O CONFIRMATION STAT 04/24/2024 3:43 PM DURABLE MEDICAL EQUIPMENT REPAIRER CBC WITH AUTO DIFFERENTIAL STAT 04/24/2024 10:11 AM DURABLE MEDICAL EQUIPMENT REPAIRER PHOSPHORUS (PO4) STAT 04/24/2024 10:1 1 AM DURABLE MEDICAL EQUIPMENT REPAIRER MAGNESIUM (MG) STAT 04/24/2024 10:11 AM DURABLE MEDICAL EQUIPMENT REPAIRER COMPLETE BLOOD COUNT (CBC) WITH DIFF STAT 04/24/2024 10:11 AM DURABLE MEDICAL EQUIPMENT REPAIRER CMP (COMPREHENSIVE METABOLIC PANEL) STAT 04/24/2024 10:11 AM DURABLE MEDICAL EQUIPMENT REPAIRER from Last 3 Months Results * (ABNORMAL) CBC with Auto Differential (04/25/2024 1:00 PM DURABLE MEDICAL EQUIPMENT REPAIRER) Only the most recent of2 resultswithin the time period is included. WBC 15.59(H) 4.00 - 12.00 10(3)/mcL 04/25/2024 1:18 PM DURABLE MEDICAL EQUIPMENT REPAIRER [facility] RBC 5.27 4.40 - 5.80 10(6)/[facility] 04/25/2024 1:18 PM [facility] HEMOGLOBIN (HGB) 14.6 13.0 - 16.5 g/dL 04/25/2024 1:18 PM [facility] HEMATOCRIT (HCT) 42.9 38.0 - 50.0 % 04/25/2024 1:18 PM [facility] MCV 81.4(L) 82.0 - 96.0 fL 04/25/2024 1:18 PM [facility] MCH 27.7 26.0 - 32.0 pg 04/25/2024 1:18 PM [facility] MCHC 34.0 31.0 - 36.0 g/dL 04/25/2024 1:18 PM [facility] PLATELET COUNT 241 140 - 440 10(3)/[facility] 04/25/2024 1:18 PM [facility] RDW 12.7 11.8 - 15.5 % 04/25/2024 1:18 PM [facility] MPV 10.5 8.0 - 12.6 fL 04/25/2024 1:18 PM [facility] NEUTROPHILS 82.6(H) 40.0 - 68.0 % 04/25/2024 1:18 PM [facility] LYMPHOCYTES 10.1(L) 19.0 - 49.0 % 04/25/2024 1:18 PM DURABLE MEDICAL EQUIPMENT REPAIRER [facility] MONOCYTES 7.2 3.0 - 13.0 % 04/25/2024 1:18 PM DURABLE MEDICAL EQUIPMENT REPAIRER [facility] EOSINOPHILS 0.0 0.0 - 8.0 % 04/25/2024 1:18 PM DURABLE MEDICAL EQUIPMENT REPAIRER [facility] BASOPHILS 0.1 0.0 - 1.0 % 04/25/2024 1:18 PM DURABLE MEDICAL EQUIPMENT REPAIRER [facility] ABSOLUTE NEUTROPHILS 12.87(H) 1.40 - 5.30 10(3)/mcL 04/25/2024 1:18 PM DURABLE MEDICAL EQUIPMENT REPAIRER [facility] ABSOLUTE LYMPHOCYTES 1.57 0.90 - 3.30 10(3)/[facility] 04/25/2024 1:18 PM [facility] ABSOLUTE MONOCYTES 1.13(H) 0.10 - 0.90 10(3)/[facility] 04/25/2024 1:18 PM DURABLE MEDICAL EQUIPMENT REPAIRER [facility] ABSOLUTE EOSINOPHIL 0.00 0.00 - 0.50 10(3)/[facility] 04/25/2024 1:18 PM [facility] ABSOLUTE BASOPHILS 0.02 0.00 - 0.10 10(3)/[facility] 04/25/2024 1:18 PM DURABLE MEDICAL EQUIPMENT REPAIRER [facility] NRBC PER 100 WBC 0 04/25/20 24 1:18 PM DURABLE MEDICAL EQUIPMENT REPAIRER [facility] Blood Venipuncture / Unknown 04/25/2024 1:00 PM DURABLE MEDICAL EQUIPMENT REPAIRER 04/25/2024 1:08 PM DURABLE MEDICAL EQUIPMENT REPAIRER us Bhanuu Kiko GARCIA HEMATOLOGY ORDERABLES Final Resu lt Performing Organization Address City/State/[facility] Co de Phone Number [facility] [address] [address], * (ABNORMAL) PHOSPHORUS (PO4) (04/25/2024 1:00 PM DURABLE MEDICAL EQUIPMENT REPAIRER) Only the most recent of2 resultswithin the time period is included. PHOSPHORUS 2.4(L) 2.5 - 4.5 mg/dL 04/25/2024 1:46 PM DURABLE MEDICAL EQUIPMENT REPAIRER [facility] Blood Venipuncture / Unknown 04/25/2024 1:00 PM DURABLE MEDICAL EQUIPMENT REPAIRER 04/25/2024 1:08 PM DURABLE MEDICAL EQUIPMENT REPAIRER us Carter Hoover MD CHEMISTRY ORDERABLES Final Resul t [facility] [address] [place] [address], [place] * (ABNORMAL) Comprehensive Metabolic Panel (CMP) (04/25/2024 1:00 PM DURABLE MEDICAL EQUIPMENT REPAIRER) Only the most recent of2 resultswithin the time period is included. SODIUM 137 136 - 145 mmol/L 04/25/2024 1:46 PM DURABLE MEDICAL EQUIPMENT REPAIRER [facility] POTASSIUM 3.4(L) 3.5 - 5.1 mmol/L 04/25/2024 1:46 PM DURABLE MEDICAL EQUIPMENT REPAIRER [facility] CHLORIDE 107 98 - 107 mmol/L 04/25/2024 1:46 PM [facility] CO2, VENOUS 20(L) 22 - 30 mmol/L 04/25/2024 1:46 PM DURABLE MEDICAL EQUIPMENT REPAIRER [facility] ANION GAP 10.0 <18.0 mmol/L 04/25/2024 1:46 PM DURABLE MEDICAL EQUIPMENT REPAIRER [facility] GLUCOSE 127(H) 70 - 99 mg/dL 04/25/2024 1:46 PM DURABLE MEDICAL EQUIPMENT REPAIRER [facility] BUN 7(L) 9 - 21 mg/dL 04/25/2024 1:46 PM DURABLE MEDICAL EQUIPMENT REPAIRER [facility] CREATININE, BLOOD 0.76 0.70 - 1.30 mg/dL 04/25/2024 1:46 PM [facility] BUN/CREATININE RATIO 9(L) 12 - 20 ratio 04/25/2024 1:46 PM DURABLE MEDICAL EQUIPMENT REPAIRER [facility] TOTAL PROTEIN 6.9 6.3 - 8.2 g/dL 04/25/2024 1:46 PM DURABLE MEDICAL EQUIPMENT REPAIRER [facility] ALBUMIN 4.3 3.5 - 5.0 g/dL 04/25/2024 1:46 PM [facility] A/G RATIO 1.7 1.0 - 2.2 04/25/2024 1:46 PM [facility] CALCIUM 9.0 8.7 - 10.5 mg/dL 04/25/2024 1:46 PM DURABLE MEDICAL EQUIPMENT REPAIRER [facility] T BILI 1.0 0.2 - 1.2 mg/dL 04/25/2024 1:46 PM DURABLE MEDICAL EQUIPMENT REPAIRER [facility] SGOT (AST) 16 5 - 34 U/L 04/25/2024 1:46 PM DURABLE MEDICAL EQUIPMENT REPAIRER [facility] SGPT (ALT) 23 0 - 55 U/L 04/25/2024 1:46 PM DURABLE MEDICAL EQUIPMENT REPAIRER [facility] ALKALINE PHOSPHATASE 87 40 - 150 U/L 04/25/2024 1:46 PM DURABLE MEDICAL EQUIPMENT REPAIRER [facility] GFR, ESTIMATED >60 >=60 04/25/2024 1:46 PM DURABLE MEDICAL EQUIPMENT REPAIRER [facility] Comment: Creatinine Clearance is the preferred criteria for selecting drug dose adjustments in renally impaired patients. The GFR is provided as additional pertinent clinical information. GFR is reported in mL/min/1.73 sq m. Calculation based on the Chronic Kidney Disease Epidemiology Collaboration (CKD- EPI) equation refit without adjustment for race. GFR, EST. >60 >=60 024 1:46 PM DURABLE MEDICAL EQUIPMENT REPAIRER [facility] GFR, EST. NONAFRICAN >60 >=60 04/25/2024 1:46 PM DURABLE MEDICAL EQUIPMENT REPAIRER [facility] Blood Venipuncture / Unknown 04/25/2024 1:00 PM DURABLE MEDICAL EQUIPMENT REPAIRER 04/25/2024 1:08 PM DURABLE MEDICAL EQUIPMENT REPAIRER us Carter Hoover MD CHEMISTRY ORDERABLES Final Resul t Performing Organization Address City/State/[facility] Co de Phone Number [facility] [address] [place] [address], * EKG 12 LEAD (04/25/2024 1:40 AM DURABLE MEDICAL EQUIPMENT REPAIRER) Ventricular Rate 62 BPM EXTERNAL EKG Atrial Rate 62 BPM EXTERNAL EKG P-R Interval 146 ms EXTERNAL EKG QRS Duration 110 ms EXTERNAL EKG Q-T Duration 412 ms EXTERNAL EKG QTC CALCULATION 418 ms EXTERNAL EKG P [place] 16 degrees EXTERNAL EKG R [place] 61 degrees EXTERNAL EKG T [place] 30 degrees EXTERNAL EKG 04/25/2024 1:40 AM DURABLE MEDICAL EQUIPMENT REPAIRER Impressions EXTERNAL EKG - 04/25/2024 6:09 AM DURABLE MEDICAL EQUIPMENT REPAIRER NORMAL SINUS RHYTHM WITH SINUS ARRHYTHMIA INCOMPLETE RIGHT BUNDLE BRANCH BLOCK BORDERLINE ECG ~ Confirmed by Hernan Merchant Siddharth ([id number]) on 04/25/2024 6:09:38 AM Narrative Procedure Note Carlton Merchant MD - 04/25/2024 IMPRESSION: NORMAL SINUS RHYTHM WITH SINUS ARRHYTHMIA INCOMPLETE RIGHT BUNDLE BRANCH BLOCK BORDERLINE ECG ~ Confirmed by Hernan Merchant Siddharth ([id number]) on 04/25/2024 6:09:38 AM Leonard Samson MD IMG ECG ORDERABLE S Final Result EXTERNAL EKG * EKG SCAN (04/25/2024 12:00 AM DURABLE MEDICAL EQUIPMENT REPAIRER) 04/25/2024 us Provider Scan IMG ECG ORDERABLES Final Result RESULTING AGENCY * (ABNORMAL) Ur Drug Screen w/o Confirmation (04/24/2024 3:43 PM DURABLE MEDICAL EQUIPMENT REPAIRER) UR AMPHETAMINE NON DETECTED NON DETECTED 04/24/2024 4:22 PM DURABLE MEDICAL EQUIPMENT REPAIRER [facility] Comment: FOR MEDICAL USE ONLY. CUTOFF CONCENTRATION FOR DETECTED RESULT: AMPHETAMINE: 500 NG/ML UR BARBITURATE NON DETECTED NON DETECTED 04/24/2024 4:22 PM DURABLE MEDICAL EQUIPMENT REPAIRER [facility] Comment: FOR MEDICAL USE ONLY. CUTOFF CONCENTRATION FOR DETECTED RESULT: BARBITUATES: 200 NG/ML UR BENZODIAZEPINES NON DETECTED NON DETECTED 04/24/2024 4:22 PM DURABLE MEDICAL EQUIPMENT REPAIRER [facility] Comment: FOR MEDICAL USE ONLY. CUTOFF CONCENTRATION FOR DETECTED RESULT: BENZODIAZAPINE: 200 NG/ML UR COCAINE METABOLITE NON DETECTED NON DETECTED 04/24/2024 4:22 PM DURABLE MEDICAL EQUIPMENT REPAIRER [facility] Comment: FOR MEDICAL USE ONLY. CUTOFF CONCENTRATION FOR DETECTED RESULT: COCAINE: 150 NG/ML UR OPIATES DETECTED(A) NON DETECTED 04/24/2024 4:22 PM DURABLE MEDICAL EQUIPMENT REPAIRER [facility] Comment: FOR MEDICAL USE ONLY. CUTOFF CONCENTRATION FOR DETECTED RESULT: OPIATES: 300 NG/ML UR PHENCYCLIDINE NON DETECTED NON DETECTED 04/24/2024 4:22 PM DURABLE MEDICAL EQUIPMENT REPAIRER [facility] Comment: FOR MEDICAL USE ONLY. CUTOFF CONCENTRATION FOR DETECTED RESULT: PCP: 25 NG/ML UR CANNABINOID DETECTED(A) NON DETECTED 04/24/2024 4:22 PM DURABLE MEDICAL EQUIPMENT REPAIRER [facility] Comment: FOR MEDICAL USE ONLY. CUTOFF CONCENTRATION FOR DETECTED RESULT: THC (MARIJUANA): 50 NG/ML Urine Non-Phlebotomy Collection / Unknown 04/24/2024 3:43 PM DURABLE MEDICAL EQUIPMENT REPAIRER 04/24/2024 3:44 PM DURABLE MEDICAL EQUIPMENT REPAIRER us Carter Hoover MD URINE ORDERABLES Final Result Performing Organization Address [facility] Co de Phone Number [facility] [address] [place] [address], * Magnesium (Mg) (04/24/2024 10:11 AM DURABLE MEDICAL EQUIPMENT REPAIRER) MAGNESIUM 1.7 1.6 - 2.6 mg/dL 04/24/2024 10:58 AM DURABLE MEDICAL EQUIPMENT REPAIRER [facility] Blood Venipuncture / Unknown 04/24/2024 10:11 AM DURABLE MEDICAL EQUIPMENT REPAIRER 04/24/2024 10:15 AM DURABLE MEDICAL EQUIPMENT REPAIRER Indra Nair MD CHEMISTRY ORDERABLES Fin al Result Performing Organization Address City/[facility] Co de Phone Number [facility] [address] [place] [address], from Last 3 Months Insurance MEDICAID AETNA [facility] Advance Directives * Full Code (Latest Code Status on File) Date Activated Date Inactivated Comments 04/24/2024 12:36 PM CPR-Full Nj atment: FULL ARREST: Attempt Resuscitation/CPR wit intubation and mechanical ventilation. PRE-ARREST: Use entire range of life support measures to stabilize the patient. Care Teams Director Teen Post Relationship Specialty Start Date End Date Provider, None [place] PCP - General 01/15/22
--- OUTSIDE RECORDS SUMMARY | 2024-07-09 12:44 | XMS_ITS | Clinical Summary ---
Author Organization [facility] Address [facility] [place] [address] Care Team Providers Care Development Educator Name Role Phone Osbaldo Hong MD [...] 01/15/2000, 04/17/1999, Additional history exists PHQ-2 (Physician [place]) 2010 HPV Vaccines (1 - Male 3-dose series) 2013 Hepatitis C 2016 COVID-19 Vaccine ( season) 2024 Influenza Adult (#1) 2024 PHQ-2 (Physician [place]) 05/27/2024 Meningococcal B Vaccine Aged Out No [...] to complete this topic Insurance Care Teams Development Educator Relationship Specialty Start Date End Date Osbaldo Hong MD PCP - General FAMILY PRACTICE 11/30/21
--- NOTE | 2024-07-09 12:47 | ED_ITS ---
HPI - Nausea/Vomiting/Diarrhea General Chief complaint: Nausea/Vomiting/Diarrhea Stated complaint: n/v/d x2d Time Seen by Provider: 07/09/24 12:30 Related Data Allergies Allergy/AdvReac Type Severity Reaction Status Date / Time No Known Allergies Allergy Verified 07/09/24 11:21 PMFSH Past Medical History Medical History Cannabinoid hyperemesis syndrome Surgical History Surgical History No pertinent past surgical history Social History Social History Alcohol intake: never Substance use: current Substance use type: marijuana Course Vital Signs Vital signs: Vital Signs Temperature 98.6 F 07/09/24 11:35 Pulse Rate 80 07/09/24 11:35 Respiratory Rate 16 07/09/24 11:35 Blood Pressure 159/84 H 07/09/24 11:35 Pulse Oximetry 100 07/09/24 11:35 Oxygen Delivery Room Air 07/09/24 11:35 Temperature 98.6 F 07/09/24 11:35 Pulse Rate 80 07/09/24 11:35 Respiratory Rate 16 07/09/24 11:35 Blood Pressure 159/84 H 07/09/24 11:35 Pulse Oximetry 100 07/09/24 11:35 Oxygen Delivery Room Air 07/09/24 11:35 Discharge Plan Discharge Patient Language: [place] Arabian Prescriptions: No Action ondansetron 4 mg tablet,disintegrating 4 mg PO Q8H PRN (Reason: nausea and vomiting) Qty: 10 0RF Follow-up/Referrals: UNKNOWN,DOCTOR [Primary Care Provider] -
--- NOTE | 2024-07-09 12:48 | ED_ITS ---
HPI - Nausea/Vomiting/Diarrhea General Chief complaint: Nausea/Vomiting/Diarrhea Stated complaint: n/v/d x2d Time Seen by Provider: 07/09/24 12:30 History of Present Illness HPI Narrative: Patient is a 24-year-old male who presents ER with nausea vomiting x2 days. No known sick contacts. Has taken Zofran with mild improvement but has not taken any today. No diarrhea. No abdominal pain. Patient was found in the basement surrounded by drugs and firearms. Patient is not particularly cooperative with history taking. Patient has history of cannabinoid hyperemesis. Related Data Allergies Allergy/AdvReac Type Severity Reaction Status Date / Time No Known Allergies Allergy Verified 07/09/24 11:21 Review of Systems 2 Review of Systems: All systems reviewed & are unremarkable except as noted in HPI and below Constitutional: Constitutional: Reports no additional constitutional complaints Cardiovascular: Cardiovascular: Reports no additional cardiovascular complaints Respiratory: Respiratory: Reports no additional respiratory complaints Gastrointestinal: Gastrointestinal: Denies abdominal pain, Denies diarrhea, Reports nausea and Reports vomiting Genitourinary: Genitourinary: Reports no additional male genitourinary complaints [facility] [place] Past Medical History Medical History Cannabinoid hyperemesis syndrome Surgical History Surgical History No pertinent past surgical history Social History Social History Alcohol intake: never Substance use: current Substance use type: marijuana Exam 2 Narrative: GENERAL: Fatigued-appearing, obese, and in no acute distress. HEAD: Normocephalic, atraumatic. EYES: PERRL and EOMI. ENT: Mucous membranes moist. Mucus draining from the nares bilaterally. CHEST: Clear to auscultation. No respiratory distress. HEART: Regular rate and rhythm. Normal peripheral pulses. ABDOMEN: Soft, nontender, nondistended. EXTREMITIES: Normal range of motion. No edema. SKIN: Warm, dry, no rash. NEURO: Alert and oriented x3. PSYCH: Normal mood and affect. Course Course Emergency Course: Patient has received Zofran and Phenergan. He is still having some nausea but no vomiting but he has requested additional Zofran and GI cocktail which will be provided. I have no indication keep in the hospital. I have discussed this with him. I have also discussed cannabinoid hyperemesis syndrome and that he needs to cease his marijuana use. Additionally I have discussed I cannot given Haldol due to risk of QT prolongation with the Phenergan. Patient is much more talkative at this time that he was when he came in which I think indicates that he is feeling improved as well. Vital Signs Vital signs: Vital Signs Temperature 98.6 F 07/09/24 11:35 Pulse Rate 80 07/09/24 11:35 Respiratory Rate 16 07/09/24 11:35 Blood Pressure 159/84 H 07/09/24 11:35 Pulse Oximetry 100 07/09/24 11:35 Oxygen Delivery Room Air 07/09/24 11:35 Temperature 98.6 F 07/09/24 11:35 Pulse Rate 80 07/09/24 11:35 Respiratory Rate 16 07/09/24 11:35 Blood Pressure 159/84 H 07/09/24 11:35 Pulse Oximetry 100 07/09/24 11:35 Oxygen Delivery Room Air 07/09/24 11:35 MDM - Nausea/Vomiting/Diarrhea Lab Data 07/09/24 13:16 07/09/24 13:16 Labs: Lab Results 07/09/24 07/09/24 Range/Units 13:16 14:32 WBC 11.5 H (4.5-10.0) K/mm3 RBC 5.32 (4.6-6.20) M/mm3 Hgb 14.6 (14.0-18.0) g/dL Hct 43.5 (42.0-52.0) % MCV 81.8 (80-100) fl MCH 27.4 (26-34) pg MCHC 33.6 (32-36) g/dl RDW 12.4 (11.5-14.5) % Plt Count 245 (150-375) k/mm3 MPV 10.8 H (7.4-10.4) fl Immature Gran % (Auto) 0.8 H (0-0.5) % Neut % (Auto) 85.7 H (45.5-73.1) % Lymph % (Auto) 11.1 L (18.3-44.2) % [place] % (Auto) 2.0 L (2.6-8.5) % Eos % (Auto) 0.1 (0-4.4) % Baso % (Auto) 0.3 (0.2-1.2) % Lymph # (Auto) 1.27 (0.9-3.2) K/mm3 [place] # (Auto) 0.2 (0.1-0.6) K/mm3 Eos # (Auto) 0.0 (0-0.3) K/mm3 Baso # (Auto) 0.0 (0.0-0.1) K/mm3 Abs Immat Gran (auto) 0.09 H (0.00-0.031) K/mm3 Absolute Neuts (auto) 9.9 H (1.3-6.7) K/mm3 Absolute Nucleated RBC 0.000 (0.0-0.012) K/mm3 Nucleated RBC % 0.0 (0.0-0.2) % Sodium 138 (137-145) mmol/L Potassium 3.6 (3.4-5.0) mmol/L Chloride 105 (98-107) mmol/L Carbon Dioxide 19 L (22-30) mmol/L Anion Gap 14 H (4-12) mmol/L BUN 14 (9-20) mg/dL Creatinine 0.59 L (0.7-1.3) mg/dL Estim Creat Clear Calc 227 ml/min Estimated GFR > 60 (59 - ) Glucose 118 H (65-110) mg/dL Lactic Acid 1.2 (0.7-2.0) mmol/L Calcium 9.9 (8.4-10.2) mg/dL Total Bilirubin 1.3 (0.2-1.3) mg/dL AST 29 (17-59) U/L ALT 35 (6-50) U/L Alkaline Phosphatase 107 (38-126) U/L Total Protein 8.0 (6.3-8.2) g/dL Albumin 4.6 (3.5-5.1) g/dL Lipase 33 (23-300) U/L Urine Color Yellow (Yellow) Urine Appearance Turbid H (Clear) Urine pH 8.5 (5.0-9.0) Ur Specific [place] 1.022 (1.001-1.035) Urine Protein Trace (Negative) mg/dL Urine Glucose (UA) Negative (Negative) mg/dL Urine Ketones 3+ H (Negative) mg/dL Ur Blood (Man) Negative (Negative) Urine Nitrate Negative (Negative) Urine Bilirubin Negative (Negative) Urine Urobilinogen 0.2 (<2.0) mg/dL Leukocyte Esterase Rfl Negative (Negative) LEDY/UL Urine RBC 0-2 (0-2) /hpf Urine WBC 0-5 (0-3) /hpf Ur Squamous Epith Cells None seen (Few) /hpf Urine Bacteria None seen /hpf Urine Casts 0-2 Urine Opiates Screen Positive A (Negative) Urine Methadone Screen Negative (Negative) Ur Barbiturates Screen Negative (Negative) Ur Phencyclidine Scrn Negative (Negative) Ur Amphetamine Screen Negative (Negative) U Benzodiazepines Scrn Negative (Negative) Urine Cocaine Screen Negative (Negative) U Cannabinoids Screen Positive A (Negative) Ethyl Alcohol < 10 (<10) mg/dL Influenza A (RT-PCR) Negative (Negative) Influenza B (RT-PCR) Negative (Negative) RSV (RT-PCR) Negative (Negative) SARS-CoV-2 RNA (RT-PCR) Negative (Negative) Discharge Plan Discharge Clinical Impression: Nausea & vomiting Patient Disposition: Home, Self-Care Condition: Stable Instructions: Acute Nausea and Vomiting (ED) Additional Instructions: Return to the emergency department if you develop severe abdominal pain, severe nausea and vomiting to the point where you are unable to keep down fluids, if you develop chest pain or difficulty breathing, blood in your stool, dizziness or fainting, or if you develop any other new or concerning symptoms as these could be signs of more serious medical illness. Try to stay well hydrated. Patient Language: Armenian Prescriptions: New promethazine 25 mg tablet 25 mg PO Q6H PRN (Reason: nausea and vomiting) Qty: 20 0RF No Action ondansetron 4 mg tablet,disintegrating 4 mg PO Q8H PRN (Reason: nausea and vomiting) Qty: 10 0RF Follow-up/Referrals: Kitty Love MD [Physician] - 1 Week UNKNOWN,DOCTOR [Primary Care Provider] -
[2024-07-09] MEDS: SODIUM CHLORIDE 0.9% IV 1,000 ML 999 ML IV CONT (13:16)
[2024-07-09] MEDS: ONDANSETRON INJ 4 MG/2 ML VIAL IV PUSH (13:16)
[2024-07-09 13:32] LABS: Basophils Percent Auto 0.3 % (0.2-1.2); Eosinophils Percent Auto 0.1 % (0-4.4); Hematocrit 43.5 % (42.0-52.0); Hemoglobin 14.6 g/dL (14.0-18.0); Immature Granulocyte Absolute 0.09 K/mm3 (0.00-0.031); Immature Granulocyte Percent A 0.8 % (0-0.5); Lymphocytes Absolute Auto 1.27 K/mm3 (0.9-3.2); Lymphocytes Percent Auto 11.1 % (18.3-44.2); Mean Corpuscular HGB Conc 33.6 g/dl (32-36); Mean Corpuscular Hemoglobin 27.4 pg (26-34); Mean Corpuscular Volume 81.8 fl (80-100); Mean Platelet Volume 10.8 fl (7.4-10.4); Monocytes Absolute Auto 0.2 K/mm3 (0.1-0.6); Neutrophils Absolute Auto 9.9 K/mm3 (1.3-6.7); Neutrophils Percent Auto 85.7 % (45.5-73.1); Platelet Count Result 245 k/mm3 (150-375); Red Blood Count 5.32 M/mm3 (4.6-6.20); Red Cell Distribution Width 12.4 % (11.5-14.5); White Blood Count 11.5 K/mm3 (4.5-10.0)
[2024-07-09 13:42] LABS: Alanine Aminotransferase 35 U/L (6-50); Albumin Level 4.6 g/dL (3.5-5.1); Alkaline Phosphatase 107 U/L (38-126); Anion Gap 14 mmol/L (4-12); Aspartate Amino Transferase 29 U/L (17-59); Bilirubin,Total 1.3 mg/dL (0.2-1.3); Blood Urea Nitrogen 14 mg/dL (9-20); Calcium 9.9 mg/dL (8.4-10.2); Carbon Dioxide 19 mmol/L (22-30); Chloride 105 mmol/L (98-107); Estimated CRCL calculation 227 ml/min; Estimated Glomerular Filt Rate > 60; Glucose 118 mg/dL (65-110); Lactic Acid Reflex 1.2 mmol/L (0.7-2.0); Lipase 33 U/L (23-300); Sodium 138 mmol/L (137-145)
[2024-07-09 13:51] LABS: Ethanol < 10 mg/dL (<10)
[2024-07-09 14:08] LABS: Potassium 3.6 mmol/L (3.4-5.0)
[2024-07-09 14:12] LABS: Influenza A QL RT-PCR Negative (Negative); Influenza B QL RT-PCR Negative (Negative); RSV RNA, RT-PCR Negative (Negative); SARS-CoV-2 RNA PCR Negative (Negative)
[2024-07-09] MEDS: SODIUM CHLORIDE 0.9% IV 50 ML 200 ML (14:35)
[2024-07-09] MEDS: PROMETHAZINE HCL 25 MG/ML AMPUL 12.5 MG IV PUSH (14:35)
[2024-07-09 14:45] LABS: Add Urine Microscopic? YES; Appearance Urine Turbid (Clear); Bacteria Urine None Seen /hpf; Bilirubin Urine Negative (Negative); Blood Urine Negative (Negative); Color Urine Yellow (Yellow); Glucose Urine UA Negative (Negative); Ketones Urine 3+ mg/dL (Negative); Leukocyte Esterase Ur Negative LEU/UL (Negative); Nitrate Urine Negative (Negative); Non Pathogenic Casts 0-2; Protein Urine Trace mg/dL (Negative); RBC Urine 0-2 /hpf (0-2); Specific Grav Ur 1.022 (1.001-1.035); Squamous Epithelial Cell Urine None Seen /hpf (Few); Urobilinogen Urine 0.2 mg/dL (<2.0); WBC Urine 0-5 /hpf (0-3); pH Urine 8.5 (5.0-9.0)
--- NOTE | 2024-07-09 14:48 | PC.NURSE ---
Pt. requesting benadryl for cramping and nausea. Dr. Butterfield notified. See MAR. Pt. continues to refuse vital signs d/t I don't feel good. Speech is clear. Breathing equal and unlabored. Pt. moving all extremities.
[2024-07-09] MEDS: diphenhydrAMINE HCl CAP 25 MG CAPSULE PO (14:49)
[2024-07-09 15:18] LABS: Amphetamine Screen Urine Negative (Negative); Barbiturate Screen Urine Negative (Negative); Benzodiazepines Screen Urine Negative (Negative); Cannabinoid Screen Urine Positive (Negative); Cocaine Screen Urine Negative (Negative); Methadone Screen Urine Negative (Negative); Opiate Screen Urine Positive (Negative); Phencyclidine Screen Urine Negative (Negative)
[2024-07-09 15:52] VITALS: BP 133/72; PULSE 85; RESP 20; O2SAT 100
[2024-07-09] MEDS: HALOPERIDOL LACTATE 5 MG/ML VIAL IV PUSH (15:54)
--- NOTE | 2024-07-09 16:02 | PC.NURSE ---
Pt refusing PO Benadryl. Pt states he only wants IV push . notified.
--- NOTE | 2024-07-09 16:19 | PC.NURSE ---
Pt. asked for his Mom to be called to pick him up. Mom Mildred called by this RN [phone]. Mildred states she will not come pick him up. Pt. updated. Pt. provided with socks. Pt. is A&Ox4, able to move all extremities. Speech clear. Breathing equal and unlabored. Pt. taken out to [place] via and offered phone in [place] to use.
--- NOTE | 2024-07-09 16:28 | PC.NURSE ---
Patient would yell from his room help me . When this RN would go to patient bedside he would state he wanted a specific medication given. Patent would be given his call light and educated on using that instead of yelling. patient then threw the call light on the floor and began yelling again. Patient's RN was notified.
== END 2024-07-09 16:31 | disposition home or self-care (01) ==
PROVIDERS: Emergency Provider Emergency Medicine
DX: R11.2 Nausea with vomiting, unspecified (principal); Z20.822 Contact with and (suspected) exposure to COVID-19
CPT/HCPCS: 36415; 80053; 80307; 81001; 82077; 83605; 83690; 85025; 87637; 96361; 96374; 96375; 99284; A9270; J1630; J2405; J2550; J7030

== ENCOUNTER 2024-09-12 11:27 | Emergency (ER) | payer OTHER, SELFPAY ==
--- OUTSIDE RECORDS SUMMARY | 2024-09-12 11:30 | XMS_ITS ---
Author Organization [facility] Address [address] [place] [address] Phone Care Team Providers Care Machine Binding Folder Name Role Phone Provider, None Primary Care Provider Unavailabl e [facility] Status:Enrolled (Active) Start date:06/08/2024 Enrollment date:06/08/2024 Related social drivers of health:Social Connections, Alcohol Use, Tobacco Use, Financial Resource Strain, Depression, Stress, Physical Activity Continued Care and Services Coordination
--- OUTSIDE RECORDS SUMMARY | 2024-09-12 11:30 | XMS_ITS | Clinical Summary ---
Author Organization [facility] Address [address] [place] [address] Phone Care Team Providers Care Marketing Engineer Name Role Phone Provider, None Primary Care Provider Unavailabl e Allergies No known active allergies Medications ondansetron (ZOFRAN-ODT) 4 MG TABLET DISPERSIBLE Take 1 Tablet by mouth every 6 hours as needed for Nausea - 1st line for up to 90 doses. 90 Tablet 04/25/2024 Active Active Problems Problem Noted Date Diagnosed Date Cannabinoid hyperemesis syndrome 04/24/2024 Social History Tobacco Use Types Packs/Day Years Used Date Smoking Tobacco: Never Assessed [place] Utilities Answer Date Recorded In the past [...] time in the past 12 m [facility], were you homeless or living in a senior living (including now)? No 04/24/2024 Sex and Gender Information Value Date Recorded Sex Assigned at Not on file Legal Sex Male 5:01 AM CDT Gender Identity Not on file Sexual Orientation Not on file Last Filed Vital Signs Vital Sign Reading Time Taken Comments Blood Pressure 126/74 04/25/2024 5:20 AM ROUTE DRIVER SALESPERSON Pulse 72 04/25/2024 5:20 AM ROUTE DRIVER SALESPERSON Temperature 36.8 C (98.3 F) 04/25/2024 5:20 AM ROUTE DRIVER SALESPERSON Respiratory Rate 18 04/25/2024 5:20 AM ROUTE DRIVER SALESPERSON Oxygen Saturation 99% 04/25/2024 5:20 AM ROUTE DRIVER SALESPERSON Inhaled Oxygen Concentration - - Weight 129.3 kg (285 lb) 04/24/2024 9:15 AM ROUTE DRIVER SALESPERSON Height 182.9 cm (6') 04/24/2024 9:15 AM ROUTE DRIVER SALESPERSON Body Mass Index 38.65 04/24/2024 9:15 AM ROUTE DRIVER SALESPERSON Plan of Treatment Health Maintenance Due Date [...] patient's age to complete this topic Insurance MEDICAID AETNA [facility] Advance Directives * Full Code (Latest Code Status on File) Date Activated Date Inactivated Comments 04/24/2024 12:36 PM CPR-Full Nj atment: FULL ARREST: Attempt Resuscitation/CPR wit intubation and mechanical ventilation. PRE-ARREST: Use entire range of life support measures to stabilize the patient. Care Teams Marketing Engineer Relationship Specialty Start Date End Date Provider, None DELILAH PCP - General 01/15/22
--- OUTSIDE RECORDS SUMMARY | 2024-09-12 11:30 | XMS_ITS | Clinical Summary ---
Author Organization [facility] Address [address] [place] [address] Care Team Providers Care Awning Craftsperson Name Role Phone Osbaldo Hong MD Primary [...] Active Problems No known active problems Immunizations Immunization Administration Dates Next Due Dtap ([facility]cel-Immune) 12/28/2003,01/15/2000, [...] C 2016 COVID-19 Vaccine ( season) 2024 PHQ-2 (Physician [place]) 05/27/2024 Meningococcal B Vaccine Aged Out No l onger eligible based on patient's age to complete this topic Meningococcal Vaccine Aged Out No vinay matty eligible based on patient's age to complete this topic Pneumococcal Vaccine: Pediatrics (0 to 5 Years) and At-Risk Patients (6 to 49 Years) Aged Out No longer eligible based on patient's age to complete this topic RSV Immunizations Under 20 Months Aged Out No longer eligible based on patient's age to complete this topic Insurance T Care Teams Awning Craftsperson Relationship Specialty Start Date End Date Osbaldo Hong MD PCP - General FAMILY PRACTICE 11/30/21
--- OUTSIDE RECORDS SUMMARY | 2024-09-12 11:30 | XMS_ITS | Clinical Summary ---
Author Organization [facility] Address [address] [place] [address] Phone Care Team Providers Care Home Care Administrator Name Role Phone Unavailable Primary Care Provider [...] history exists HPV VACCINES (1 - Male 3-dos e series) 2013 INFLUENZA VACCINE (#1) 2023 Insurance OPEN ACCESS HMO
--- OUTSIDE RECORDS SUMMARY | 2024-09-12 11:30 | XMS_ITS | Clinical Summary ---
Author Organization [place] [id number] [facility] Address [facility] [place] [address] Care Team Providers Care Assistant Analyst Name Role Phone No, Physician Primary Care Provider [phone] Allergies No known active allergies Medications ondansetron ODT (ZOFRAN-ODT) 4 mg disintegrating tablet Take 1 tablet (4 mg total) by mouth every 8 (eight) hours as needed for nausea or vomiting 30 tablet 025 2024 Active losartan (COZAAR) 25 mg tablet Take 1 tablet (25 mg total) by mouth daily 30 tablet 025 2024 Active metoclopramide (REGLAN) 10 mg tablet Take 1 tablet (10 mg total) by mouth 3 (three) times a day as needed (nausea) 20 tablet Active pregabalin (LYRICA) 100 mg capsule Take 1 capsule (100 mg total) by mouth 2 (two) times a day 2024 Discontinued(T herapy completed) sucralfate (CARAFATE) 1 gram tabletIndications :Gastric Ulcer Take 1 tablet (1 g total) by mouth 4 (four) times a day as needed (ulcers) 2024 Discontinued(T herapy completed) famotidine (PEPCID) 20 mg tablet Take 1 tablet (20 mg total) by mouth nightly as needed for indigestion or heartburn 30 tablet 024 2024 Discontinued(T herapy completed) pantoprazole DR (PROTONIX) 40 mg EC tabletIndications :Stress Ulcer Prophylaxis Take 1 tablet (40 mg total) by mouth 2 (two) times a day 60 tablet 024 2024 Discontinued(T herapy completed) ondansetron ODT (ZOFRAN-ODT) 4 mg disintegrating tablet Take 1 tablet (4 mg total) by mouth every 8 (eight) hours as needed for nausea or vomiting 30 tablet 024 2024 Discontinued Active Problems Problem Noted Date Diagnosed Date Substance withdrawal with complication Opiate withdrawal 11/14/2023 Encounters Date Type Department Care Team Description 08/29/2024 1:12 AM CDT - 08/29/2024 3:51 AM T Emergency [facility] Emergency Department [address] [place] [id number] Bud Simon DO Nausea and vomiting, unspecified vomiting type (Primary Dx); Dehydration Discharge Disposition: Discharge to home or self care 08/28/[address] [address] Nisha Parikh RN 08/27/2024 3:09 PM CDT - 08/27/2024 7:08 PM T Emergency [facility] Emergency Department [address] [place] [id number] Nausea vomiting and diarrhea (Primary Dx) Discharge Disposition: Discharge to home or self care 08/27/2024 1:35 PM CDT - 08/27/2024 2:27 PM CDT [address] [address] Discharge Disposition: Left without being seen 08/21/2024 5:08 PM CDT - 08/24/2024 12:19 PM CDT Hospital Encounter [address] [address] Aakash Gillis, Javon Davalos MD Substance withdrawal with complication (HCC) (Primary Dx) Discharge Disposition: Discharge to home or self care from Last 3 Months Medical History Medical History Date Comments Polysubstance abuse (HCC) Marijuana use Social History Tobacco Use Types Packs/Day Years Used Date Smoking Tobacco: Never Smokeless Tobacco: Never Alcohol Use Standard Drinks/Week Comments Not Currently 0 (1 standard drink = 0.6 oz pur e alcohol) [facility] Utilities Answer Date Recorded In the past 12 months has e electric, gas, oil, or water company threatened to shut off services in your home? No 08/24/2024 Social Connection and Isolat ion Panel [NHANES] Answer Date Recorded In a typical week, how many times do you talk on the phone with family, friends, or neighbors? More than three times a week 08/24/2024 How often do you get togethe r with friends or relatives? More than three times a week 08/24/2024 How often do you attend chur ch or pentecostal services? Never 08/24/2024 Do you belong to any clubs o r organizations such as holiness groups, unions, fraternal or athletic groups, or school groups? No 08/24/2024 How often do you attend meet ings of the clubs or organizations you belong to? Never 08/24/2024 Are you , , di vorced, , never , or living with a partner? Never 08/24/2024 Overall Financial Resource Strain (CARDIA) Answe r Date Recorded How hard is it for you to pa y for the very basics like food, housing, medical care, and heating? Not hard at all 08/24/2024 Hunger Vital Sign Answer Date Recorded Within the past 12 months, y ou worried that your food would run out before you got the money to buy more. Never true 08/25/19 25 Within the past 12 months, t he food you bought just didn't last and you didn't have money to get more. Never true 08/24/2024 PRAPARE - Transportation Answer Date Re corded In the past 12 months, has l ack of transportation kept you from medical appointments or from getting medications? No 07/27 In the past 12 months, has l ack of transportation kept you from meetings, work, or from getting things needed for daily living? No 08/24/2024 Housing Stability Vital Sign Answer Caleb e Recorded In the last 12 months, was t here a time when you were not able to pay the mortgage or rent on time? No 08/24/2024 In the past 12 months, how m any times have you moved where you were living? 1 08/24/2024 At any time in the past 12 m [facility], were you homeless or living in a detention (including now)? No 08/24/2024 Personal Safety Answer Date Recorded Have you ever been in or are you currently in a harmful physical or emotional relationship or is someone making you feel afraid or unsafe? 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 Gender Identity Not on file Sexual Orientation Not on file Obstetrics History Last Filed Vital Signs Vital Sign Reading Time Taken Comments Blood Pressure 110/94 08/29/2024 3:50 AM CDT Pulse 87 08/29/2024 3:50 AM CDT Temperature 36.4 C (97.6 F) 08/29/2024 1:09 AM CDT Respiratory Rate 20 08/29/2024 3:50 AM CDT Oxygen Saturation 100% 08/29/2024 3:50 AM CDT Inhaled Oxygen Concentration - - Weight 138.7 kg (305 lb 12.5 oz) 08/29/2024 1:09 AM CDT Height 185.4 cm (6' 1 ) 08/29/2024 1:09 AM CDT Body Mass Index 40.34 08/29/2024 1:09 AM CDT Plan of Treatment Health Maintenance Due Date Last Done Comments Depression Screening 1998 Varicella Vaccines (2 of 2 - 2-dose childhood series) 05/11/2003 02/16/2003 DTaP/Tdap/Td Vaccine (5 - Tdap) 2009 12/28/2003, 01/15/2000, 04/17/1999, Additional history exists HPV Vaccines (1 - Male 3-dose series) 2013 Regular Well Visit/Exam 18-64 2016 Influenza Vaccine (Season Ended) 2025 Hepatitis B Screening Completed 04/17/1999, 999 Hepatitis C Screening Completed 08/22/2024, 024 Pneumococcal vaccine <65 Aged Out No longer eligible based on patient's age to complete this topic Procedures Procedure Name Priority Date/Time Associated Diagnosis Comments CT ABDOMEN PELVIS W CONTRAST ED 08/27/2024 4:44 PM CDT URINALYSIS, MICROSCOPIC ONLY STAT 08/27/2024 2:45 PM CDT DRUGS OF ABUSE SCREEN, URINE WITHOUT CONFIRMATION STAT 08/27/2024 2:45 PM CDT URINALYSIS AND REFLEX TO MICROSCOPIC AND CULTURE STAT 08/27/2024 2:45 PM CDT EGFR STAT 08/27/2024 2:43 PM CDT DIFFERENTIAL AUTO STAT 08/27/2024 2:4 3 PM CDT LIPASE STAT 08/27/2024 2:43 PM CDT COMPREHENSIVE METABOLIC PANEL STAT 08/27/2024 2:43 PM CDT CBC WITH AUTO DIFFERENTIAL STAT 08/27/2024 2:43 PM CDT DIFFERENTIAL AUTO Routine 08/24/2024 7:4 6 AM CDT CBC WITH AUTO DIFFERENTIAL Routine 08/24/2024 7:46 AM CDT DIFFERENTIAL AUTO Routine 08/23/2024 6:3 9 AM CDT CBC WITH AUTO DIFFERENTIAL Routine 08/23/2024 6:39 AM CDT XR CHEST 1 VIEW Critical/Life-T hreatening 08/22/2024 8:05 AM CDT EGFR Routine 08/22/2024 4:55 AM CDT DIFFERENTIAL AUTO Routine 08/22/2024 4:5 5 AM CDT MAGNESIUM Routine 08/22/2024 4:55 AM CDT BASIC METABOLIC PANEL Routine 08/22/2024 4:55 AM CDT CBC WITH AUTO DIFFERENTIAL Routine 08/22/2024 4:55 AM CDT HIV 1/2 ANTIBODY PLUS P24 ANTIGEN Routine 08/22/2024 4:55 AM CDT HEPATITIS PANEL, ACUTE Routine 08/22/2024 4:55 AM CDT URINALYSIS, MICROSCOPIC ONLY STAT 08/21/2024 5:44 PM CDT DRUGS OF ABUSE SCREEN, URINE WITHOUT CONFIRMATION STAT 08/21/2024 5:44 PM CDT URINALYSIS AND REFLEX TO MICROSCOPIC AND CULTURE STAT 08/21/2024 5:44 PM CDT ECG 12-LEAD Routine 08/21/2024 5:02 PM CDT EGFR STAT 08/21/2024 4:56 PM CDT DIFFERENTIAL AUTO STAT 08/21/2024 4:5 6 PM CDT CBC WITH AUTO DIFFERENTIAL STAT 08/21/2024 4:56 PM CDT COMPREHENSIVE METABOLIC PANEL STAT 08/21/2024 4:56 PM CDT from Last 3 Months Results * CT Abdomen Pelvis W Contrast (08/27/2024 4:44 PM CDT) Anatomical Region Laterality Modality Body N/A Computed Tomogra phy 08/27/2024 4:54 PM CDT Narrative 08/27/2024 5:02 PM CDT EXAM DESCRIPTION: CT ABDOMEN PELVIS W CONTRAST REASON FOR STUDY: Abdominal pain, acute, nonlocalized N/V/D onset this am. States stools are green. TECHNIQUE: CT scan of the abdomen and pelvis performed with intravenous and without oral contrast using helical scanning technique with dynamic intravenous contrast injection. Reconstructed coronal and sagittal MPR images reviewed. All images stored on PACS. Automated exposure control was used as a dose optimization technique for this examination. CONTRAST TYPE/DOSE: 100mL of IOVERSOL 350 MG IODINE/ML INTRAVENOUS SYRINGE injected via intravenous COMPARISON: CT abdomen and pelvis 01/18/2020 FINDINGS: LOWER CHEST: No significant pulmonary abnormalities. No effusion. LIVER: Normal size. No identified cystic or solid masses. GALLBLADDER: No stones, wall thickening or pericholecystic fluid BILE DUCTS: No intrahepatic or extrahepatic ductal dilatation. SPLEEN: Normal size. No focal lesions. PANCREAS: No identified cystic or solid masses. No significant calcifications. No adjacent inflammation or peripancreatic fluid collections. Pancreatic duct not dilated. ADRENALS: Normal. KIDNEYS/URINARY TRACT: No identified significant cystic or solid masses. No visualized stones. No hydronephrosis or hydroureter. Symmetric enhancement. Urinary bladder is unremarkable. GI: No dilated bowel loops. No obvious wall thickening.. No significant diverticular disease. PERITONEUM: No ascites or free air. RETROPERITONEUM: No mass or adenopathy. REPRODUCTIVE: No significant abnormality. VASCULATURE: No abdominal aortic aneurysm. MUSCULOSKELETAL: No significant abnormality. OTHER: No other abnormality. IMPRESSION: No acute finding. THIS IS AN ELECTRONICALLY VERIFIED FINAL REPORT 08/27/2024 5:02 PM - Electronically signed by Adelina Cloud M.D. FT: FT Report ID: [id number] Reading Location: [place] [address] Procedure Note Adelina Chavez MD - 08/27/2024 EXAM DESCRIPTION: CT ABDOMEN PELVIS W CONTRAST REASON FOR STUDY: Abdominal pain, acute, nonlocalized N/V/D onset this am. States stools are green. TECHNIQUE: CT scan of the abdomen and pelvis performed with intravenousand without oral contrast using helical scanning technique with dynamic intravenous contrast injection. Reconstructed coronal and sagittal MPRimages reviewed. All images stored on PACS. Automated exposure control was usedas a dose optimization technique for this examination. CONTRAST TYPE/DOSE: 100mL of IOVERSOL 350 MG IODINE/ML INTRAVENOUSSYRINGE injected via intravenous COMPARISON: CT abdomen and pelvis 01/18/2020 FINDINGS: LOWER CHEST: No significant pulmonary abnormalities. Noeffusion. LIVER: Normal size. No identified cystic or solid masses. GALLBLADDER: No stones, wall thickening or pericholecystic fluid BILE DUCTS: No intrahepatic or extrahepatic ductal [...] No dilated bowel loops. No obvious wall thickening.. No significant diverticular disease. PERITONEUM: No ascites or free air. RETROPERITONEUM: No mass or adenopathy. REPRODUCTIVE: No significant abnormality. VASCULATURE: No abdominal aortic aneurysm. MUSCULOSKELETAL: No significant abnormality. OTHER: No other abnormality. IMPRESSION: No acute finding. THIS IS AN ELECTRONICALLY VERIFIED FINAL REPORT 08/27/2024 5:02 PM - Electronically signed by Adelina Cloud M.D. FT: FT Report ID: [id number] Reading Location: [place] [address] PROCEDURES Final Result * (ABNORMAL) Urinalysis reflex to microscopic and culture Urine (08/27/2024 2:45 PM CDT) Color, ur Mary Yellow Comment:Testing performed by : [address] [address] Clarity, ur Turbid(A) Clear MIRTHA Comment:Testing performed by : [address] [address] Specific gravity, ur 1.025 1.003 - 1.030 MIRTHA Comment:Testing performed by : [address] [address] pH, urine 8.5 MIRTHA Comment: Interpretive Data U rine pH is affected by diet, medications, systemic acid-base disturbances, and renal tubular function. pH may affect urinary stone formation. For example, urine pH below 6.0 may help reduce the tendency for calcium phosphate stones and pH greater than 6.0 may reduce the tendency for uric acid stone formation. Source: [email or web address] Current Interpretive Data was last revised on 2017 Testing performed by: [address] [address] Protein, ur ql 1+(A) Negative MIRTHA LUTHER Comment:Testing performed by : [facility], [address] [place] [address], [place]., [address] Glucose, ur ql Negative Negative MIRTHA Comment:Testing performed by : [facility], [address] [place] [address], [place]., [address] Ketones, ur 2+(A) Negative MIRTHA Comment:Testing performed by : [address], [place]., [address] Bilirubin, ur Negative Negative MIRTHA Comment:Testing performed by : [address], [place]., [address] Blood, ur Negative Negative MIRTHA Comment:Testing performed by : [address], [place]., [address] Urobilinogen, ur <2.0 <2.0 mg/dL MIRTHA Comment:Testing performed by : [address], [place]., [address] Nitrite, ur Negative Negative MIRTHA Comment:Testing performed by : [address], [place]., [address] Leukocyte esterase, ur Negative Negative MIRTHA Comment:Testing performed by : [address], [place]., [address] UA reflex comment Reflex to microscopic UA will be performed. MIRTHA Comment:Testing performed by : [address], [place]., [address] Urine 08/27/2024 2:45 PM CDT 08/27/2024 2:54 PM CDT [facility] MICROBIOLOGY - GENERAL YASSINE FRIEND Final Result MIRTHA [address] [facility] Department [place] [address] * (ABNORMAL) Drugs of Abuse Screen, Urine without Confirmation (08/27/2024 2:45 PM CDT) [facility] Amphetamine, ur Not Detected CutOff 500ng/mL Comment: Interpretive Data - Amphetamines: Samples containing greater than 500 ng/mL d-methamphetamine or other cross-reacting amphetamine compounds are reported as positive. Amphetamine immunoassays are subject to significant false positive rates due to cross-reactivity of non-amphetamine drugs. Confirmatory testing required for definitive results. Current Interpretive Data was last reviewed 2022. Testing performed by: [facility], [address] [place] [address]., [address] Barbiturates, ur Not Detected CutOff 200ng/mL [facility] Comment: Interpretive Data - Barbiturates: Samples containing greater than 200 ng/mL secobarbital or other cross-reacting barbiturate compounds are reported as positive. False positive and false negative results are possible. Confirmatory testing required for definitive results. Current Interpretive Data was last reviewed 2022. Testing performed by: [address] [address] Benzodiazepines, ur Not Detected CutOff 100ng/mL [facility] Comment: Interpretive Data - Benzodiazepines: Samples containing greater than 100 ng/mL nordiazepam or other cross-reacting compounds are reported as positive. False positive and false negative results are possible. Confirmatory testing required for definitive results. Current Interpretive Data was last reviewed 2022. Testing performed by: [address] [address] Cannabinoids, ur Screen Positive, presumptive (A) CutOff 50 ng/mL [facility] Comment: Interpretive Data - Cannabinoids: Samples containing greater than 50 ng/mL delta-9 THC -COOH or other cross- reacting compounds are reported as positive. False positive and false negative results are possible. Confirmatory testing required for definitive results. Current Interpretive Data was last reviewed 2022. Testing performed by: [address] [address] Cocaine, ur Not Detected CutOff 150ng/mL [facility] Comment: Interpretive Data - Cocaine: Samples containing greater than 150 ng/mL benzoylecgonine or other cross- reacting compounds are reported as positive. False positive and false negative results are possible. Confirmatory testing required for definitive results. Current Interpretive Data was last reviewed 2022. Testing performed by: [address] [address] Fentanyl, Ur Not Detected CutOff 5 ng/mL [facility] Comment: Interpretive Data - Fentanyl: Samples containing greater than 1 ng/mL fentanyl or other cross-reacting fentanyl compounds are reported as positive. False positive and false negative results are possible. Confirmatory testing required for definitive results. Current Interpretive Data was last reviewed 2022. Testing performed by: [address] [address] Methadone, ur Not Detected CutOff 300ng/mL MIRTHA Comment: Interpretive Data - Methadone: Samples containing greater than 300 ng/mL d,l-methadone or other cross-reacting compounds are reported as positive. False positive and false negative results are possible. Confirmatory testing required for definitive results. Current Interpretive Data was last reviewed 2022. Testing performed by: [address] [address] Opiates, ur Not Detected CutOff 300ng/mL MIRTHA Comment: Interpretive Data - Opiates: Samples containing greater than 300 ng/mL morphine or other cross-reacting compounds are reported as positive. False positive and false negative results are possible. Confirmatory testing required for definitive results. Current Interpretive Data was last reviewed 2022. Testing performed by: [address] [address] Oxycodone, ur Screen Positive, presumptive (A) CutOff 100ng/mL MIRTHA Comment: Interpretive Data - Oxycodone: Samples containing greater than 100 ng/mL oxycodone or other cross-reacting compounds are reported as positive. False positive and false negative results are possible. Confirmatory testing required for definitive results. Current Interpretive Data was last reviewed 2022. Testing performed by: [address] [address] Phencyclidine, ur Not Detected CutOff 25 ng/mL [facility] Comment: Interpretive Data - Phencyclidine: Samples containing greater than 25 ng/mL phencyclidine or other cross-reacting compounds are reported as positive. False positive and false negative results are possible. Confirmatory testing required for definitive results. Current Interpretive Data was last reviewed 2022. Testing performed by: [address] [address] Urine Creatinine 187 mg/dL MIRTHA Comment: Interpretive Data Urine Creatinine: < 10 mg/dL is extremely dilute = or > 10 but < 20 mg/dL is dilute = or > 20 mg/dL is normal Current Interpretive Data was last revised on 2017. Testing performed by: [address] [address] Urine 08/27/2024 2:45 PM CDT 08/27/2024 2:54 PM CDT Narrative MIRTHA - 08/27/2024 3:35 PM CDT Drug of Abuse screening is performed by immunoassay for medical purposes only. This is not to be used for Pain Management purposes. Esme DAVIS LAB URINE ORDERABLES Final Resul t Performing Organization Address [facility] Co de Phone Number [address] [employer] [address] * (ABNORMAL) Urinalysis, microscopic only (08/27/2024 2:45 PM CDT) WBC, ur 0-5 0 - 5 /HPF Comment:Testing performed by : [address] [address] RBC, ur 0-2 0 - 2 /HPF MIRTHA Comment:Testing performed by : [address] [address] Mucous, ur Present(A) MIRTHA Comment:Testing performed by : [address] [address] Culture Reflex Comment Reflex conditions for urine culture (WBC >10) not met. MIRTHA Comment:Testing performed by : [address] [address] Urine 08/27/2024 2:45 PM CDT 08/27/2024 2:54 PM CDT Yolette Batista MD LAB URINE ORDERABLES Final Resu lt Performing Organization Address [facility]/ZIP Co de Phone Number [address] [employer] [address] * eGFR (08/27/2024 2:43 PM CDT) Pathologist [facility] eGFR >90 >=60 mL/min/1. 73 m2 Comment: Interpretive Data Reference Interval Normal >/= 90 mL/min/1.73m2 Mildly decreased* 60 - 89 mL/min/1.73m2 Mildly to moderately decreased 45 - 59 mL/min/1.73m2 Moderately to severely decreased 30 - 44 mL/min/1.73m2 Severely decreased 15 - 29 mL/min/1.73m2 Kidney Failure < 15 mL/min/1.73m2 *Relative to young adult level Estimated glomerular [...] was last reviewed 2021. Testing performed by: [address] [address] Blood 08/27/2024 2:43 PM CDT 08/27/2024 2:54 PM CDT [facility] BLOOD ORDERABLES Final Resu lt MIRTHA [address] [facility] Department [place] [address] * (ABNORMAL) Differential, auto (08/27/2024 2:43 PM CDT) Pathologist [facility] Neutrophil abs 9.56(H) 1.50 - 6.50 K/cumm Comment:Testing performed by : [address] [address] Imm gran abs 0.06 0.00 - 0.10 K/cumm MIRTHA LUTHER Comment:Testing performed by : [address] [address] Lymphocyte abs 2.29 0.80 - 3.30 K/cumm MIRTHA LUTHER Comment:Testing performed by : [address] [place] [address] Monocyte abs 0.67 0.20 - 0.80 K/cumm [facility] Comment:Testing performed by : [address] [address] Eosinophil abs 0.00 0.00 - 0.50 K/cumm MIRTHA Comment:Testing performed by : [address] [address] Basophil abs 0.05 0.00 - 0.10 K/cumm [facility] Comment:Testing performed by : [address] [address] Neutrophil pct 75.7 % [facility] Comment: Interpretive Data Percent cell count reference ranges are not reported, since discordance with absolute values may lead to misinterpretation of CBC data. Current Interpretive Data was last revised on 2017. Testing performed by: [address] [address] Imm gran pct 0.5 % [facility] Comment: Interpretive Data Percent cell count reference ranges are not reported, since discordance with absolute values may lead to misinterpretation of CBC data. Current Interpretive Data was last revised on 2017. Testing performed by: [address] [address] Lymphocyte pct 18.1 % [facility] Comment: Interpretive Data Percent cell count reference ranges are not reported, since discordance with absolute values may lead to misinterpretation of CBC data. Current Interpretive Data was last revised on 2017. Testing performed by: [address] [address] Monocyte pct 5.3 % [facility] Comment: Interpretive Data Percent cell count reference ranges are not reported, since discordance with absolute values may lead to misinterpretation of CBC data. Current Interpretive Data was last revised on 2017. Testing performed by: [address] [address] Eosinophil pct 0.0 % [facility] Comment: Interpretive Data Percent cell count reference ranges are not reported, since discordance with absolute values may lead to misinterpretation of CBC data. Current Interpretive Data was last revised on 2017. Testing performed by: [address] [address] Basophil pct 0.4 % MIRTHA LUTHER Comment: Interpretive Data Percent cell count reference ranges are not reported, since discordance with absolute values may lead to misinterpretation of CBC data. Current Interpretive Data was last revised on 2017. Testing performed by: [address] [address] Blood 08/27/2024 2:43 PM CDT 08/27/2024 2:54 PM CDT [facility] BLOOD ORDERABLES Final Resu lt MIRTHA LUTHER [facility] Department [place] [address] * (ABNORMAL) CBC with auto differential (08/27/2024 2:43 PM CDT) WBC 12.63(H) 3.80 - 9.90 K/cumm Comment:Testing performed by : [address] [address] Hgb 15.1 13.0 - 17.5 g/dL MIRTHA LUTHER Comment:Testing performed by : [address] [address] Hct 42.5 38.9 - 50.3 % MIRTHA LUTHER Comment:Testing performed by : [address] [address] Plt 315 150 - 400 K/cumm MIRTHA LUTHER Comment:Testing performed by : [address] [address] MPV 10.8 9.1 - 12.3 fL MIRTHA LUTHER Comment:Testing performed by : [address] [address] RBC 5.41 4.30 - 5.80 M/cumm MIRTHA LUTHER Comment:Testing performed by : [address] [address] MCV 78.6(L) 81.3 - 96.4 fL MIRTHA LUTHER Comment:Testing performed by : [address] [address] MCH 27.9 27.1 - 33.3 pg MIRTHA LUTHER Comment:Testing performed by : [address] [address] MCHC 35.5 32.3 - 35.7 g/dL MIRTHA LUTHER Comment:Testing performed by : [address] [address] RDW CV 12.7 11.1 - 14.9 % MIRTHA LUTHER Comment:Testing performed by : [address] [address] RDW SD 36.1 35.7 - 48.1 fL MIRTHA LUTHER Comment:Testing performed by : [address] [address] NRBC abs 0.00 0.00 - 0.01 K/cumm MIRTHA LUTHER Comment:Testing performed by : [address], [address] Blood Venous blood specimen / Unknown 08/27/2024 2:43 PM CDT 08/27/2024 2:54 PM CDT Rehab Lester GARCIA LAB BLOOD ORDERABLES Final Resu lt Performing Organization Address City/[facility]/ZIP Co de Phone Number [address] [place] [address] * Lipase (08/27/2024 2:43 PM CDT) [facility] Signature Lipase 17 10 - 99 Units/L Comment:Testing performed by : [address] [address] Blood Venous blood specimen / Unknown 08/27/2024 2:43 PM CDT 08/27/2024 2:54 PM CDT [facility] GARCIA LAB BLOOD ORDERABLES Final Resu lt [address] [place] [address] * (ABNORMAL) Comprehensive metabolic panel (08/27/2024 2:43 PM CDT) Sodium 138 135 - 145 mmol/L Comment:Testing performed by : [address] [address] Potassium, pl 3.2(L) 3.3 - 4.9 mmol/L MIRTHA Comment:Testing performed by : [address] [address] Chloride 104 97 - 110 mmol/L MIRTHA Comment:Testing performed by : [address] [address] CO2 19(L) 22 - 32 mmol/L MIRTHA Comment:Testing performed by : [address] [address] Anion gap 15 2 - 15 mmol/L MIRTHA Comment:Testing performed by : [address] [address] BUN 10 6 - 25 mg/dL MIRTHA Comment:Testing performed by : [address] [address] Creatinine 0.75(L) 0.80 - 1.30 mg/dL MIRTHA Comment:Testing performed by : [address] [address] Glucose 107 70 - 199 mg/dL MIRTHA Comment: Interpretive Data Fasting glucose >/= 126 mg/dl is diagnostic for diabetes. Fasting is defined as no caloric intake [...] was last revised 2022. Testing performed by: [address] [address] Calcium 10.7(H) 8.5 - 10.3 mg/dL MIRTHA Comment:Testing performed by : [address] [place]., [address] Bilirubin, total 1.1 0.1 - 1.2 mg/dL MIRTHA Comment:Testing performed by : [facility], [address] [place] [address]., [address] Protein, pl 7.6 6.5 - 8.5 g/dL MIRTHA Comment:Testing performed by : [address] [address] Albumin 4.5 3.5 - 5.0 g/dL MIRTHA Comment:Testing performed by : [address], [address] Alk phos 94 40 - 130 Units/L MIRTHA Comment:Testing performed by : [address], [address] ALT 28 7 - 55 Units/L MIRTHA Comment:Testing performed by : [address], [address] AST 19 10 - 50 Units/L MIRTHA Comment:Testing performed by : [address] [address] Blood 08/27/2024 2:43 PM CDT 08/27/2024 2:54 PM CDT us Rehab Lester GARCIA LAB BLOOD ORDERABLES Final Resu lt [facility] [address] [facility] Department [place] [address] * (ABNORMAL) Differential, auto (08/24/2024 7:46 AM CDT) Pathologist [facility] Neutrophil abs 7.9(H) 1.5 - 6.5 K/cumm Imm gran abs 0.1 0.0 - 0.1 K/cumm [facility] Lymphocyte abs 3.9(H) 0.8 - 3.3 K/cumm [facility] Monocyte abs 1.0(H) 0.2 - 0.8 K/cumm [facility] Eosinophil abs 0.1 0.0 - 0.5 K/cumm [facility] Basophil abs 0.1 0.0 - 0.1 K/cumm [facility] Neutrophil pct 60.5 % [facility] Comment: Interpretive Data Percent cell count reference ranges are not reported, since discordance with absolute values may lead to misinterpretation of CBC data. Current Interpretive Data was last revised on 2017. Imm gran pct 0.5 % [facility] Comment: Interpretive Data Percent cell count reference ranges are not reported, since discordance with absolute values may lead to misinterpretation of CBC data. Current Interpretive Data was last revised on 2017. Lymphocyte pct 29.9 % [facility] Comment: Interpretive Data Percent cell count reference ranges are not reported, since discordance with absolute values may lead to misinterpretation of CBC data. Current Interpretive Data was last revised on 2017. Monocyte pct 7.8 % [facility] Comment: Interpretive Data Percent cell count reference ranges are not reported, since discordance with absolute values may lead to misinterpretation of CBC data. Current Interpretive Data was last revised on 2017. Eosinophil pct 0.8 % [facility] Comment: Interpretive Data Percent cell count reference ranges are not reported, since discordance with absolute values may lead to misinterpretation of CBC data. Current Interpretive Data was last revised on 2017. Basophil pct 0.5 % [facility] Comment: Interpretive Data Percent cell count reference ranges are not reported, since discordance with absolute values may lead to misinterpretation of CBC data. Current Interpretive Data was last revised on 2017. Blood 08/24/2024 7:46 AM CDT 08/24/2024 8:22 AM CDT us Javon Garcia MD LAB BLOOD ORDERABLES Final Result [facility] [address] [facility] Department [place] [address] * (ABNORMAL) CBC with auto differential (08/24/2024 7:46 AM CDT) WBC 13.0(H) 3.8 - 9.9 K/cumm Hgb 14.9 13.0 - 17.5 g/dL [facility] Hct 45.2 38.9 - 50.3 % [facility] Plt 250 150 - 400 K/cumm [facility] MPV 10.9 9.1 - 12.3 fL [facility] RBC 5.40 4.30 - 5.80 M/cumm [facility] MCV 83.7 81.3 - 96.4 fL [facility] MCH 27.6 27.1 - 33.3 pg [facility] MCHC 33.0 32.3 - 35.7 g/dL [facility] RDW CV 13.1 11.1 - 14.9 % [facility] RDW SD 39.8 35.7 - 48.1 fL [facility] NRBC abs 0.00 0.00 - 0.01 K/cumm [facility] Blood 08/24/2024 7:46 AM CDT 08/24/2024 8:22 AM CDT us Javon Garcia MD LAB BLOOD ORDERABLES Final Result Performing Organization Address City/State/[facility] Co de Phone Number [facility] [address] [facility] Department [place] [address] * (ABNORMAL) Differential, auto (08/23/2024 6:39 AM CDT) Pathologist [facility] Neutrophil abs 12.1(H) 1.5 - 6.5 K/cumm Imm gran abs 0.1 0.0 - 0.1 K/cumm [facility] Lymphocyte abs 1.9 0.8 - 3.3 K/cumm [facility] Monocyte abs 0.9(H) 0.2 - 0.8 K/cumm [facility] Eosinophil abs 0.0 0.0 - 0.5 K/cumm [facility] Basophil abs 0.1 0.0 - 0.1 K/cumm [facility] Neutrophil pct 80.8 % [facility] Comment: Interpretive Data Percent cell count reference ranges are not reported, since discordance with absolute values may lead to misinterpretation of CBC data. Current Interpretive Data was last revised on 2017. Imm gran pct 0.3 % [facility] Comment: Interpretive Data Percent cell count reference ranges are not reported, since discordance with absolute values may lead to misinterpretation of CBC data. Current Interpretive Data was last revised on 2017. Lymphocyte pct 12.4 % [facility] Comment: Interpretive Data Percent cell count reference ranges are not reported, since discordance with absolute values may lead to misinterpretation of CBC data. Current Interpretive Data was last revised on 2017. Monocyte pct 6.1 % [facility] Comment: Interpretive Data Percent cell count reference ranges are not reported, since discordance with absolute values may lead to misinterpretation of CBC data. Current Interpretive Data was last revised on 2017. Eosinophil pct 0.1 % [facility] Comment: Interpretive Data Percent cell count reference ranges are not reported, since discordance with absolute values may lead to misinterpretation of CBC data. Current Interpretive Data was last revised on 2017. Basophil pct 0.3 % [facility] Comment: Interpretive Data Percent cell count reference ranges are not reported, since discordance with absolute values may lead to misinterpretation of CBC data. Current Interpretive Data was last revised on 2017. Blood 08/23/2024 6:39 AM CDT 08/23/2024 7:49 AM CDT us Javon Garcia MD LAB BLOOD ORDERABLES Final Result [facility] [address] [facility] Department [place] [address] * (ABNORMAL) CBC with auto differential (08/23/2024 6:39 AM CDT) WBC 15.0(H) 3.8 - 9.9 K/cumm Hgb 15.3 13.0 - 17.5 g/dL [facility] Hct 45.7 38.9 - 50.3 % [facility] Plt 282 150 - 400 K/cumm [facility] MPV 11.1 9.1 - 12.3 fL [facility] RBC 5.56 4.30 - 5.80 M/cumm [facility] MCV 82.2 81.3 - 96.4 fL [facility] MCH 27.5 27.1 - 33.3 pg [facility] MCHC 33.5 32.3 - 35.7 g/dL [facility] RDW CV 13.0 11.1 - 14.9 % [facility] RDW SD 38.5 35.7 - 48.1 fL [facility] NRBC abs 0.00 0.00 - 0.01 K/cumm MIRTHA Blood 08/23/2024 6:39 AM CDT 08/23/2024 7:49 AM CDT us Javon Garcia MD LAB BLOOD ORDERABLES Final Result MIRTHA [address] [facility] Department [place] [address] * XR Chest 1 View (08/22/2024 8:05 AM CDT) Anatomical Region Laterality Modality Body, Chest N/A Computed Radiogr aphy 08/22/2024 8:15 AM CDT Narrative 08/22/2024 8:16 AM CDT EXAM DESCRIPTION: XR CHEST 1 VIEW REASON FOR STUDY: Leukocytosis looking for source of infection Leukocytosis looking for source of infection per order reasoning TECHNIQUE: Single radiographic view(s) of the chest. COMPARISON: Radiograph dated June 25, 2021 FINDINGS: LUNGS: No focal opacity, pleural effusion, or pneumothorax. HEART/MEDIASTINUM: Cardiac silhouette normal in size. Mediastinal and hilar contours appear normal. LINES/TUBES: None. BONES: No acute osseous abnormality. IMPRESSION: No acute cardiopulmonary abnormality. THIS IS AN ELECTRONICALLY VERIFIED FINAL REPORT 08/22/2024 8:16 AM - Electronically signed by Kristopher JIMÉNEZ T: Report ID: [id number] Reading Location: [id number] Procedure Note Kristopher Shelby MD - 08/22/2024 EXAM DESCRIPTION: XR CHEST 1 VIEW REASON FOR STUDY: Leukocytosis looking for source of infection Leukocytosis looking for source of infection per order reasoning TECHNIQUE: Single radiographic view(s) of the chest. COMPARISON: Radiograph dated June 25, 2021 FINDINGS: LUNGS: No focal opacity, pleural effusion, or pneumothorax. HEART/MEDIASTINUM: Cardiac silhouette normal in size. Mediastinal andhilar contours appear normal. LINES/TUBES: None. BONES: No acute osseous abnormality. IMPRESSION: No acute cardiopulmonary abnormality. THIS IS AN ELECTRONICALLY VERIFIED FINAL REPORT 08/22/2024 8:16 AM - Electronically signed by Kristopher Shelby M.D. JA T: Report ID: [id number] Reading Location: [id number] Javon Garcia MD IMG XR PROCEDURES Fin al Result * eGFR (08/22/2024 4:55 AM CDT) eGFR >90 >=60 mL/min/1. 73 m2 Comment: Interpretive Data Reference Interval Normal >/= 90 mL/min/1.73m2 Mildly decreased* 60 - 89 mL/min/1.73m2 Mildly to moderately decreased 45 - 59 mL/min/1.73m2 Moderately to severely decreased 30 - 44 mL/min/1.73m2 Severely decreased 15 - 29 mL/min/1.73m2 Kidney Failure < 15 mL/min/1.73m2 *Relative to young adult level Estimated glomerular [...] interpretive data was last reviewed 2021. Blood 08/22/2024 4:55 AM CDT 08/22/2024 5:26 AM CDT Aakash Gillis DO LAB BLOOD ORDERABLES F inal Result [facility] [address] [facility] Department of Laboratories [place], [place] [id number] * (ABNORMAL) Differential, auto (08/22/2024 4:55 AM CDT) Pathologist [facility] Neutrophil abs 12.5(H) 1.5 - 6.5 K/cumm Imm gran abs 0.1 0.0 - 0.1 K/cumm [facility] Lymphocyte abs 1.8 0.8 - 3.3 K/cumm [facility] Monocyte abs 1.0(H) 0.2 - 0.8 K/cumm [facility] Eosinophil abs 0.0 0.0 - 0.5 K/cumm [facility] Basophil abs 0.0 0.0 - 0.1 K/cumm [facility] Neutrophil pct 81.2 % [facility] Comment: Interpretive Data Percent cell count reference ranges are not reported, since discordance with absolute values may lead to misinterpretation of CBC data. Current Interpretive Data was last revised on 2017. Imm gran pct 0.4 % [facility] Comment: Interpretive Data Percent cell count reference ranges are not reported, since discordance with absolute values may lead to misinterpretation of CBC data. Current Interpretive Data was last revised on 2017. Lymphocyte pct 11.6 % [facility] Comment: Interpretive Data Percent cell count reference ranges are not reported, since discordance with absolute values may lead to misinterpretation of CBC data. Current Interpretive Data was last revised on 2017. Monocyte pct 6.6 % [facility] Comment: Interpretive Data Percent cell count reference ranges are not reported, since discordance with absolute values may lead to misinterpretation of CBC data. Current Interpretive Data was last revised on 2017. Eosinophil pct 0.0 % [facility] Comment: Interpretive Data Percent cell count reference ranges are not reported, since discordance with absolute values may lead to misinterpretation of CBC data. Current Interpretive Data was last revised on 2017. Basophil pct 0.2 % [facility] Comment: Interpretive Data Percent cell count reference ranges are not reported, since discordance with absolute values may lead to misinterpretation of CBC data. Current Interpretive Data was last revised on 2017. Blood 08/22/2024 4:55 AM CDT 08/22/2024 5:26 AM CDT Aakash Gillis DO LAB BLOOD ORDERABLES F inal Result Performing Organization Address [facility] Co de Phone Number [address] [address] * HIV 1/2 Antibody plus p24 Antigen Blood (08/22/2024 4:55 AM CDT) [facility] HIV 1/2 ab + p24 ag Nonreactive Nonreactive Comment:Nonreactive for HIV- 1 antigen and HIV-1/HIV-2 antibodies. No laboratory evidence of HIV infection. If acute HIV infection is suspected, consider testing for HIV-1 RNA. Current interpretive data was last revised on 22. Blood 08/22/2024 4:55 AM CDT 08/22/2024 5:26 AM CDT Aakash Gillis LAB MICROBIOLOGY - GEN ERAL ORDERABLES Final Result Performing Organization Address [facility] Co de Phone Number [address] [address] * (ABNORMAL) CBC with auto differential (08/22/2024 4:55 AM CDT) [facility] WBC 15.4(H) 3.8 - 9.9 K/cumm Hgb 14.4 13.0 - 17.5 g/dL [facility] Hct 41.8 38.9 - 50.3 % [facility] Plt 252 150 - 400 K/cumm [facility] MPV 10.8 9.1 - 12.3 fL [facility] RBC 5.08 4.30 - 5.80 M/cumm [facility] MCV 82.3 81.3 - 96.4 fL [facility] MCH 28.3 27.1 - 33.3 pg [facility] MCHC 34.4 32.3 - 35.7 g/dL [facility] RDW CV 12.9 11.1 - 14.9 % [facility] RDW SD 38.6 35.7 - 48.1 fL [facility] NRBC abs 0.00 0.00 - 0.01 K/cumm [facility] Blood 08/22/2024 4:55 AM CDT 08/22/2024 5:26 AM CDT Aakash Gillis DO LAB BLOOD ORDERABLES F inal Result Performing Organization Address City/[facility]/ZIP Co de Phone Number MIRTHA [address] [place] [address] * Hepatitis panel, acute Blood (08/22/2024 4:55 AM CDT) Pathologist [facility] Hep A IgM Nonreactive Nonreactive Comment: Interpretive Data: If Hep A IgM Ab is reported as Equivocal, a new sample should be drawn in two weeks for testing. Current interpretive data was last revised on 19. Hep B core IgM Nonreactive Nonreactive [facility] Comment: Interpretive Data If HepB Core IgM Ab is reported as Equivocal, a new sample should be drawn in two weeks for testing. Current interpretive data was last revised on 19. Hep C Ab Nonreactive Nonreactive [facility] Comment: Antibodies to HCV not detected. Does [...] last revised on 2019. HepBsAg Nonreactive Nonreactive [facility] Blood 08/22/2024 4:55 AM CDT 08/22/2024 5:26 AM CDT Aakash Gillis DO LAB MICROBIOLOGY - GEN ERAL ORDERABLES Final Result Performing Organization Address [facility] Co de Phone Number [place] [address] [facility] [place] [address] * Magnesium (08/22/2024 4:55 AM CDT) Pathologist [facility] Magnesium 1.8 1.4 - 2.5 mg/dL Blood 08/22/2024 4:55 AM CDT 08/22/2024 5:26 AM CDT Aakash Lolis Gillis LAB BLOOD ORDERABLES F inal Result [address] [place] [address] * (ABNORMAL) Basic metabolic panel (08/22/2024 4:55 AM CDT) [facility] Sodium 139 135 - 145 mmol/L Potassium, pl 3.3 3.3 - 4.9 mmol/L [facility] Chloride 103 97 - 110 mmol/L [facility] CO2 21(L) 22 - 32 mmol/L [facility] Anion gap 15 2 - 15 mmol/L [facility] BUN 11 6 - 25 mg/dL [facility] Creatinine 0.60(L) 0.80 - 1.30 mg/dL [facility] Glucose 109 70 - 199 mg/dL [facility] Comment: Interpretive Data Fasting glucose >/= 126 mg/dl is diagnostic for diabetes. Fasting is defined as no caloric intake [...] interpretive data was last revised 2022. Calcium 9.2 8.5 - 10.3 mg/dL [facility] Blood 08/22/2024 4:55 AM CDT 08/22/2024 5:26 AM CDT Aakash Gillis LAB BLOOD ORDERABLES F inal Result [address] [place] [address] * (ABNORMAL) Urinalysis reflex to microscopic and culture Urine (08/21/2024 5:44 PM CDT) Color, ur Yellow Yellow Clarity, ur Clear Clear [facility] Specific gravity, ur 1.028 1.003 - 1.030 [facility] pH, urine 8.5 [facility] Comment: Interpretive Data U rine pH is affected by diet, medications, systemic acid-base disturbances, and renal tubular function. pH may affect urinary stone formation. For example, urine pH below 6.0 may help reduce the tendency for calcium phosphate stones and pH greater than 6.0 may reduce the tendency for uric acid stone formation. Source: [facility] Current Interpretive Data was last revised on 2017 Protein, ur ql 1+(A) Negative [facility] Glucose, ur ql Negative Negative [facility] Ketones, ur 4+(A) Negative [facility] Bilirubin, ur Negative Negative [facility] Blood, ur Negative Negative [facility] Urobilinogen, ur <2.0 <2.0 mg/dL [facility] Nitrite, ur Negative Negative [facility] Leukocyte esterase, ur Negative Negative [facility] UA reflex comment Reflex to microscopic UA will be performed. [facility] Urine 08/21/2024 5:44 PM CDT 08/21/2024 6:38 PM CDT us Russel Ames MD LAB MICROBIOLOGY - GENERAL ORDERABLES Final Result [facility] [address] [facility] Department [place] [address] * (ABNORMAL) Drugs of Abuse Screen, Urine without Confirmation (08/21/2024 5:44 PM CDT) Amphetamine, ur Not Detected CutOff 500ng/mL Comment: Interpretive Data - Amphetamines: Samples containing greater than 500 ng/mL d-methamphetamine or other cross-reacting amphetamine compounds are reported as positive. Amphetamine immunoassays are subject to significant false positive rates due to cross-reactivity of non-amphetamine drugs. Confirmatory testing required for definitive results. Current Interpretive Data was last reviewed 2022. Barbiturates, ur Not Detected CutOff 200ng/mL [facility] Comment: Interpretive Data - Barbiturates: Samples containing greater than 200 ng/mL secobarbital or other cross-reacting barbiturate compounds are reported as positive. False positive and false negative results are possible. Confirmatory testing required for definitive results. Current Interpretive Data was last reviewed 2022. Benzodiazepines, ur Not Detected CutOff 100ng/mL [facility] Comment: Interpretive Data - Benzodiazepines: Samples containing greater than 100 ng/mL nordiazepam or other cross-reacting compounds are reported as positive. False positive and false negative results are possible. Confirmatory testing required for definitive results. Current Interpretive Data was last reviewed 2022. Cannabinoids, ur Screen Positive, presumptive (A) CutOff 50 ng/mL [facility] Comment: Interpretive Data - Cannabinoids: Samples containing greater than 50 ng/mL delta-9 THC -COOH or other cross- reacting compounds are reported as positive. False positive and false negative results are possible. Confirmatory testing required for definitive results. Current Interpretive Data was last reviewed 2022. Cocaine, ur Not Detected CutOff 150ng/mL [facility] Comment: Interpretive Data - Cocaine: Samples containing greater than 150 ng/mL benzoylecgonine or other cross- reacting compounds are reported as positive. False positive and false negative results are possible. Confirmatory testing required for definitive results. Current Interpretive Data was last reviewed 2022. Fentanyl, Ur Not Detected CutOff 5 ng/mL [facility] Comment: Interpretive Data - Fentanyl: Samples containing greater than 5 ng/mL norfentanyl, fentanyl, or other cross-reacting fentanyl compounds are reported as positive. False positive and false negative results are possible. Confirmatory testing required for definitive results. Current Interpretive Data was last reviewed 2023. Methadone, ur Not Detected CutOff 300ng/mL [facility] Comment: Interpretive Data - Methadone: Samples containing greater than 300 ng/mL d,l-methadone or other cross-reacting compounds are reported as positive. False positive and false negative results are possible. Confirmatory testing required for definitive results. Current Interpretive Data was last reviewed 2022. Opiates, ur Not Detected CutOff 300ng/mL [facility] Comment: Interpretive Data - Opiates: Samples containing greater than 300 ng/mL morphine or other cross-reacting compounds are reported as positive. False positive and false negative results are possible. Confirmatory testing required for definitive results. Current Interpretive Data was last reviewed 2022. Oxycodone, ur Screen Positive, presumptive (A) CutOff 100ng/mL [facility] Comment: Interpretive Data - Oxycodone: Samples containing greater than 100 ng/mL oxycodone or other cross-reacting compounds are reported as positive. False positive and false negative results are possible. Confirmatory testing required for definitive results. Current Interpretive Data was last reviewed 2022. Phencyclidine, ur Not Detected CutOff 25 ng/mL [facility] Comment: Interpretive Data - Phencyclidine: Samples containing greater than 25 ng/mL phencyclidine or other cross-reacting compounds are reported as positive. False positive and false negative results are possible. Confirmatory testing required for definitive results. Current Interpretive Data was last reviewed 2022. Urine Creatinine 151 mg/dL [facility] Comment: Interpretive Data Urine Creatinine: < 10 mg/dL is extremely dilute = or > 10 but < 20 mg/dL is dilute = or > 20 mg/dL is normal Current Interpretive Data was last revised on 2017. Urine 08/21/2024 5:44 PM CDT 08/21/2024 6:38 PM CDT Narrative [facility] - 08/21/2024 7:08 PM CDT Drug of Abuse screening is performed by immunoassay for medical purposes only. This is not to be used for Pain Management purposes. Russel Ames MD LAB URINE ORDERABLE S Final Result [facility] [address] [facility] Department [place] [address] * (ABNORMAL) Urinalysis, microscopic only (08/21/2024 5:44 PM CDT) WBC, ur 0-5 0 - 5 /HPF RBC, ur 3-5(A) 0 - 2 /HPF [facility] Culture Reflex Comment Reflex conditions for urine culture (WBC >10) not met. [facility] Urine 08/21/2024 5:44 PM CDT 08/21/2024 6:38 PM CDT us Russel Ames MD LAB URINE ORDERABLE S Final Result Performing Organization Address [facility] Co de Phone Number MIRTHA [address] [facility] Department [place] [address] * ECG 12 lead (08/21/2024 5:02 PM CDT) Pathologist [facility] Ventricular Rate EKG/Min 94 BPM [facility] Atrial Rate 94 BPM [facility] [place]-Interval (MSEC) 132 ms [facility] QRS-Interval (MSEC) 110 ms [facility] QT-Interval (MSEC) 380 ms [facility] QTc 475 ms [facility] P [place] 44 degrees [facility] R [place] 75 degrees [facility] T [place] 50 degrees [facility] Diagnosis Normal sinus rhythm Incomplete right bundle branch block Borderline ECG When compared with ECG of 14-NOV-2023 17:02, Borderline criteria for Lateral infarct are no longer Present QT has lengthened Confirmed by ELKIN WARD M.D. ([id number]) on 08/22/2024 12:20:09 PM [facility] 08/21/2024 5:02 PM CDT 08/22/2024 12:20 PM CDT us Russel Ames MD ECG ORDERABLES Fin al Result Performing Organization Address [facility] de Phone Number [facility] * eGFR (08/21/2024 4:56 PM CDT) Pathologist [facility] eGFR >90 >=60 mL/min/1. 73 m2 Comment: Interpretive Data Reference Interval Normal >/= 90 mL/min/1.73m2 Mildly decreased* 60 - 89 mL/min/1.73m2 Mildly to moderately decreased 45 - 59 mL/min/1.73m2 Moderately to severely decreased 30 - 44 mL/min/1.73m2 Severely decreased 15 - 29 mL/min/1.73m2 Kidney Failure < 15 mL/min/1.73m2 *Relative to young adult level Estimated glomerular [...] interpretive data was last reviewed 2021. Blood 08/21/2024 4:56 PM CDT 08/21/2024 4:59 PM CDT us Russel Ames MD LAB BLOOD ORDERABLE S Final Result [facility] Department [place] [address] * (ABNORMAL) Differential, auto (08/21/2024 4:56 PM CDT) Neutrophil abs 9.9(H) 1.5 - 6.5 K/cumm Imm gran abs 0.1 0.0 - 0.1 K/cumm [facility] Lymphocyte abs 1.1 0.8 - 3.3 K/cumm [facility] Monocyte abs 0.2 0.2 - 0.8 K/cumm [facility] Eosinophil abs 0.0 0.0 - 0.5 K/cumm [facility] Basophil abs 0.0 0.0 - 0.1 K/cumm [facility] Neutrophil pct 87.3 % [facility] Comment: Interpretive Data Percent cell count reference ranges are not reported, since discordance with absolute values may lead to misinterpretation of CBC data. Current Interpretive Data was last revised on 2017. Imm gran pct 0.4 % [facility] Comment: Interpretive Data Percent cell count reference ranges are not reported, since discordance with absolute values may lead to misinterpretation of CBC data. Current Interpretive Data was last revised on 2017. Lymphocyte pct 10.0 % [facility] Comment: Interpretive Data Percent cell count reference ranges are not reported, since discordance with absolute values may lead to misinterpretation of CBC data. Current Interpretive Data was last revised on 2017. Monocyte pct 1.9 % [facility] Comment: Interpretive Data Percent cell count reference ranges are not reported, since discordance with absolute values may lead to misinterpretation of CBC data. Current Interpretive Data was last revised on 2017. Eosinophil pct 0.1 % [facility] Comment: Interpretive Data Percent cell count reference ranges are not reported, since discordance with absolute values may lead to misinterpretation of CBC data. Current Interpretive Data was last revised on 2017. Basophil pct 0.3 % [facility] Comment: Interpretive Data Percent cell count reference ranges are not reported, since discordance with absolute values may lead to misinterpretation of CBC data. Current Interpretive Data was last revised on 2017. Blood 08/21/2024 4:56 PM CDT 08/21/2024 4:59 PM CDT Russel Ames MD LAB BLOOD ORDERABLE S Final Result [facility] [address] [facility] Department [place] [address] * (ABNORMAL) CBC with auto differential (08/21/2024 4:56 PM CDT) WBC 11.3(H) 3.8 - 9.9 K/cumm Hgb 15.2 13.0 - 17.5 g/dL [facility] Hct 44.0 38.9 - 50.3 % [facility] Plt 272 150 - 400 K/cumm [facility] MPV 10.2 9.1 - 12.3 fL [facility] RBC 5.52 4.30 - 5.80 M/cumm [facility] MCV 79.7(L) 81.3 - 96.4 fL [facility] MCH 27.5 27.1 - 33.3 pg [facility] MCHC 34.5 32.3 - 35.7 g/dL [facility] RDW CV 12.6 11.1 - 14.9 % [facility] RDW SD 35.8 35.7 - 48.1 fL [facility] NRBC abs 0.00 0.00 - 0.01 K/cumm [facility] Blood 08/21/2024 4:56 PM CDT 08/21/2024 4:59 PM CDT us Russel Ames MD LAB BLOOD ORDERABLE S Final Result [facility] [address] [facility] Department [place] [address] * (ABNORMAL) Comprehensive metabolic panel (08/21/2024 4:56 PM CDT) Pathologist [facility] Sodium 137 135 - 145 mmol/L Potassium, pl 3.6 3.3 - 4.9 mmol/L [facility] Chloride 101 97 - 110 mmol/L [facility] CO2 17(L) 22 - 32 mmol/L [facility] Anion gap 19(H) 2 - 15 mmol/L [facility] BUN 13 6 - 25 mg/dL [facility] Creatinine 0.60(L) 0.80 - 1.30 mg/dL [facility] Glucose 127 70 - 199 mg/dL [facility] Comment: Interpretive Data Fasting glucose >/= 126 mg/dl is diagnostic for diabetes. Fasting is defined as no caloric intake [...] interpretive data was last revised 2022. Calcium 10.2 8.5 - 10.3 mg/dL [facility] Bilirubin, total 1.0 0.1 - 1.2 mg/dL [facility] Protein, pl 7.9 6.5 - 8.5 g/dL [facility] Albumin 4.5 3.5 - 5.0 g/dL [facility] Alk phos 102 40 - 130 Units/L [facility] ALT 32 7 - 55 Units/L [facility] AST 33 10 - 50 Units/L [facility] Blood 08/21/2024 4:56 PM CDT 08/21/2024 4:59 PM CDT us Russel Ames MD LAB BLOOD ORDERABLE S Final Result [facility] [address] [facility] Department [place] [address] from Last 3 Months Insurance [employer] [facility] CIGNA [employer] [facility] Advance Directives For more information, please contact: [phone] * Full Code (Latest Code Status on File) Date Activated Date Inactivated Comments 08/21/2024 10:57 PM 08/24/2024 4:43 PM * Full Code Date Activated Date Inactivated Comments 11/14/2023 4:42 PM 11/17/2023 5:47 PM Care Teams Assistant Analyst Relationship Specialty Start Date End Date No, Physician PCP - General 08/27/24
--- OUTSIDE RECORDS SUMMARY | 2024-09-12 11:30 | XMS_ITS ---
Author Organization [facility] Address [address] [place] [address] Care Team Providers Care Route Specialist Name Role Phone LizethBessy Primary Care Provider Osbaldo Villalba Unavailable [phone] REASON FOR VISIT Med list from [facility] Medications Medication SIG (Take, Route, Frequency, Duration) Notes Start Date End Date Status Dicyclomine HCl 10 MG 1 capsule Orally b efore meals and at bedtime. Active Famotidine 40 MG 1 tablet Orally Once a day Active Acetaminophen 325 MG 2 tablet as needed Orally every 6 hrs Active Alum & Mag Hydroxide-Simeth 200-200-20 MG/5ML 30 ML as needed Orally every 4 hours Active Haloperidol Lactate 5 MG/ML 5 MG as need ed Injection every 6 hours Active hydrOXYzine Pamoate 25 MG 1 capsule as n eeded Orally every 4 hours Active Magnesium Hydroxide 2400 MG/10ML 30 mL as needed Orally at bedtime Active Ondansetron 4 MG 1 tablet on the tong ue and allow to dissolve as needed Orally every 8 hours Active Promethazine HCl 25 MG/ML 1 mL as needed Injection every 6 hours Active traZODone HCl 50 MG 1 tablet at bedtime as needed Orally Once a day Active Encounters Encounter Location Date Provider Diagnosis [address] [address] 08/20/2024 Osbaldo Villalba Plan Of Treatment No Information Progress Notes * Aj LUNSFORDDOB:2000 (24 yo M)Acc No.[id number]:08/20/2024 Patient: Aj BATRES :2000 A ge:24 Y S ex:Male Address:[address] [place] [address], [place], [address] Subjective: * Chief Complaints: * M ed list from [facility] * Medical History: * Surgical History: * Hospitalization/Major Diagno stic Procedure: * Medications: T akingtraZODone HCl 50 MG Tablet 1 tablet at bedtime as needed Orally Once a day Promethazine HCl 25 MG/ML Solution 1 mL as needed Injection every 6 hours Ondansetron 4 MG Tablet Disintegrating 1 tablet on the tongue and allow to dissolve as needed Orally every 8 hours Magnesium Hydroxide 2400 MG/10ML Suspension 30 mL as needed Orally at bedtime hydrOXYzine Pamoate 25 MG Capsule 1 capsule as needed Orally every 4 hours Haloperidol Lactate 5 MG/ML Solution 5 MG as needed Injection every 6 hours Alum & Mag Hydroxide-Simeth 200-200-20 MG/5ML Suspension 30 ML as needed Orally every 4 hours Acetaminophen 325 MG Tablet 2 tablet as needed Orally every 6 hrs Famotidine 40 MG Tablet 1 tablet Orally Once a day Dicyclomine HCl 10 MG Capsule 1 capsule Orally before meals and at bedtime. Taking traZODone HCl 50 MG Tablet 1 tablet at bedtime as needed Orally Once a day Taking Promethazine HCl 25 MG/ML Solution 1 mL as needed Injection every 6 hours Taking Ondansetron 4 MG Tablet Disintegrating 1 tablet on the tongue and allow to dissolve as needed Orally every 8 hours Taking Magnesium Hydroxide 2400 MG/10ML Suspension 30 mL as needed Orally at bedtime Taking hydrOXYzine Pamoate 25 MG Capsule 1 capsule as needed Orally every 4 hours Taking Haloperidol Lactate 5 MG/ML Solution 5 MG as needed Injection every 6 hours Taking Alum & Mag Hydroxide-Simeth 200-200-20 MG/5ML Suspension 30 ML as needed Orally every 4 hours Taking Acetaminophen 325 MG Tablet 2 tablet as needed Orally every 6 hrs Taking Famotidine 40 MG Tablet 1 tablet Orally Once a day Taking Dicyclomine HCl 10 MG Capsule 1 capsule Orally before meals and at bedtime. Objective: * Vitals: * Physical Examination: Assessment: Plan: * Treatment: * Procedure Codes: * true * Date: Generated for Daria burger/Nicola/Olga on: 0 09/12/2024 11:30 AM CDT
--- OUTSIDE RECORDS SUMMARY | 2024-09-12 11:31 | XMS_ITS | Patient Health Record ---
Author Organization [facility] Address [address] [place] [address] Care Team Providers Care Poultry Service Technician Name Role Phone Bessy Stanley Primary Care Provider Osbaldo Villalba Unavailable [phone] Reason For Referral No Information Medications Medication SIG (Take, Route, Frequency, Duration) [...] Active Encounters Encounter Location Date Provider Diagnosis [address] [place] [address] 08/20/2024 Osbaldo Villalba Plan Of Treatment No Information Insurance Providers Payer Name Payer Address Payer Phone Subscriber Number Group Number Insured Name Patient Relationship to Insured Coverage Start Date Coverage End Date [employer] [facility] [address] [place] [address] [id number] Jonn Aj Self - patient is the insured
--- OUTSIDE RECORDS SUMMARY | 2024-09-12 11:31 | XMS_ITS | Referral Summary ---
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 Name Role Phone No, Physician Primary Care Provider [phone] Encounters Date Type Department Care Team Description 08/29/2024 1:12 AM CDT - 08/29/2024 3:51 AM CDT Emergency [facility] Emergency Department [address] [place] [id number] Bud Simon DO Nausea and vomiting, unspecified vomiting type (Primary Dx); Dehydration Discharge Disposition: Discharge to home or self care 08/28/[address] [address] Nisha Parikh RN 08/27/2024 3:09 PM CDT - 08/27/2024 7:08 PM CDT Emergency [facility] Emergency Department [address] [place] [id number] Nausea vomiting and diarrhea (Primary Dx) Discharge Disposition: Discharge to home or self care 08/27/2024 1:35 PM CDT - 08/27/2024 2:27 PM CDT Emergency [address] [address] Discharge Disposition: Left without being seen 08/21/2024 5:08 PM CDT - 08/24/2024 12:19 PM CDT Hospital Encounter [address] [address] Aakash Gillis, Javon Davalos MD Substance withdrawal with complication (HCC) (Primary Dx) Discharge Disposition: Discharge to home or self care from Last 3 Months Allergies No known active allergies Medications ondansetron [...] Substance withdrawal with complication Opiate withdrawal 11/14/2023 Social History Tobacco Use Types Packs/Day Years Used Date Smoking Tobacco: Never Smokeless Tobacco: Never Alcohol Use Standard Drinks/Week Comments Not Currently 0 (1 standard drink = 0.6 oz pur e alcohol) [facility] Utilities Answer Date Recorded In the past 12 months has [employer], [employer], [facility], or water [employer] threatened to shut off services in your [...] often do you attend chur ch or tenriism services? Never 08/24/2024 Do you belong to any clubs o r organizations such as roman catholic groups, unions, fraternal or athletic groups, [...] any time in the past 12 m [facility], were you homeless or living in a [place] health care facility (including now)? No 08/24/2024 Personal Safety Answer Date Recorded Have you ever been in or are you currently in a harmful physical or emotional relationship or is someone making you feel afraid or unsafe? Denies 08/29/2024 Sex and Gender Information Value Date Recorded Sex Assigned at Not on file Legal Sex Male 6:55 PM [employer] Gender Identity Not on file Sexual Orientation [...] 08/29/2024 1:09 AM CDT Plan of Treatment Not on file [...] Adelina Cloud M.D. FT: FT Report ID: [id number] Reading Location: [place] [address] Procedure Note Adelina Chavez MD - 08/27/2024 [...] Adelina Cloud M.D. FT: FT Report ID: [id number] Reading Location: [id number] Esme DAVIS IM CT PROCEDURES Final Result * (ABNORMAL) Urinalysis reflex to microscopic and culture Urine (08/27/2024 2:45 PM CDT) Color, ur Mary Yellow Comment:Testing performed by : [address] [address] Clarity, ur Turbid(A) Clear MIRTHA Comment:Testing performed by : [address] [address] Specific gravity, ur 1.025 1.003 - 1.030 MIRTHA Comment:Testing performed by : [address] [address] pH, urine 8.5 MIRTHA Comment: Interpretive Data U rine pH is affected by diet, medications, systemic acid-base disturbances, and renal tubular function. pH may affect urinary stone formation. For example, urine pH below 6.0 may help reduce the tendency for calcium phosphate stones and pH greater than 6.0 may reduce the tendency for uric acid stone formation. Source: [facility] Five9 Current Interpretive Data was last revised on 2017 Testing performed by: [address] [address] Protein, ur ql 1+(A) Negative MIRTHA Comment:Testing performed by : [address] [address] Glucose, ur ql Negative Negative MIRTHA Comment:Testing performed by : [address] [address] Ketones, ur 2+(A) Negative MIRTHA Comment:Testing performed by : [address] [address] Bilirubin, ur Negative Negative MIRTHA Comment:Testing performed by : [address] [address] Blood, ur Negative Negative MIRTHA Comment:Testing performed by : [address] [address] Urobilinogen, ur <2.0 <2.0 mg/dL MIRTHA LUTHER Comment:Testing performed by : [address] [address] Nitrite, ur Negative Negative MIRTHA LUTHER Comment:Testing performed by : [address], [place]., [address] Leukocyte esterase, ur Negative Negative MIRTHA LUTHER Comment:Testing performed by : [address] [address] UA reflex comment Reflex to microscopic UA will be performed. MIRTHA LUTHER Comment:Testing performed by : [address], [place]., [address] Urine 08/27/2024 2:45 PM CDT 08/27/2024 2:54 PM CDT [facility] Lester GARCIA LAB MICROBIOLOGY - [facility] YASSINE FRIEND Final Result MIRTHA [address] [facility] [place] [address] * (ABNORMAL) Drugs of Abuse Screen, Urine without Confirmation (08/27/2024 2:45 PM CDT) Pathologist [facility] Amphetamine, ur Not Detected CutOff 500ng/mL Comment: Interpretive Data - Amphetamines: Samples containing greater than 500 ng/mL d-methamphetamine or other cross-reacting amphetamine compounds are reported as positive. Amphetamine immunoassays are subject to significant false positive rates due to cross-reactivity of non-amphetamine drugs. Confirmatory testing required for definitive results. Current Interpretive Data was last reviewed 2022. Testing performed by: [address] [address] Barbiturates, ur Not Detected CutOff 200ng/mL MIRTHA LUTHER Comment: Interpretive Data - Barbiturates: Samples containing greater than 200 ng/mL secobarbital or other cross-reacting barbiturate compounds are reported as positive. False positive and false negative results are possible. Confirmatory testing required for definitive results. Current Interpretive Data was last reviewed 2022. Testing performed by: [address] [address] Benzodiazepines, ur Not Detected CutOff 100ng/mL MIRTHA MH Comment: Interpretive Data - Benzodiazepines: Samples containing greater than 100 ng/mL nordiazepam or other cross-reacting compounds are reported as positive. False positive and false negative results are possible. Confirmatory testing required for definitive results. Current Interpretive Data was last reviewed 2022. Testing performed by: [facility], [address] [place] [address]., [address] Cannabinoids, ur Screen Positive, presumptive (A) CutOff 50 ng/mL [facility] Comment: Interpretive Data - Cannabinoids: Samples containing greater than 50 ng/mL delta-9 THC -COOH or other cross- reacting compounds are reported as positive. False positive and false negative results are possible. Confirmatory testing required for definitive results. Current Interpretive Data was last reviewed 2022. Testing performed by: [address], [place]., [address] Cocaine, ur Not Detected CutOff 150ng/mL [facility] Comment: Interpretive Data - Cocaine: Samples containing greater than 150 ng/mL benzoylecgonine or other cross- reacting compounds are reported as positive. False positive and false negative results are possible. Confirmatory testing required for definitive results. Current Interpretive Data was last reviewed 2022. Testing performed by: [address] [address] Fentanyl, Ur Not Detected CutOff 5 ng/mL [facility] Comment: Interpretive Data - Fentanyl: Samples containing greater than 1 ng/mL fentanyl or other cross-reacting fentanyl compounds are reported as positive. False positive and false negative results are possible. Confirmatory testing required for definitive results. Current Interpretive Data was last reviewed 2022. Testing performed by: [address] [address] Methadone, ur Not Detected CutOff 300ng/mL [facility] Comment: Interpretive Data - Methadone: Samples containing greater than 300 ng/mL d,l-methadone or other cross-reacting compounds are reported as positive. False positive and false negative results are possible. Confirmatory testing required for definitive results. Current Interpretive Data was last reviewed 2022. Testing performed by: [address] [address] Opiates, ur Not Detected CutOff 300ng/mL [facility] Comment: Interpretive Data - Opiates: Samples containing greater than 300 ng/mL morphine or other cross-reacting compounds are reported as positive. False positive and false negative results are possible. Confirmatory testing required for definitive results. Current Interpretive Data was last reviewed 2022. Testing performed by: [address] [address] Oxycodone, ur Screen Positive, presumptive (A) CutOff 100ng/mL MIRTHA Comment: Interpretive Data - Oxycodone: Samples containing greater than 100 ng/mL oxycodone or other cross-reacting compounds are reported as positive. False positive and false negative results are possible. Confirmatory testing required for definitive results. Current Interpretive Data was last reviewed 2022. Testing performed by: [address] [address] Phencyclidine, ur Not Detected CutOff 25 ng/mL MIRTHA Comment: Interpretive Data - Phencyclidine: Samples containing greater than 25 ng/mL phencyclidine or other cross-reacting compounds are reported as positive. False positive and false negative results are possible. Confirmatory testing required for definitive results. Current Interpretive Data was last reviewed 2022. Testing performed by: [address] [address] Urine Creatinine 187 mg/dL MIRTHA Comment: Interpretive Data Urine Creatinine: < 10 mg/dL is extremely dilute = or > 10 but < 20 mg/dL is dilute = or > 20 mg/dL is normal Current Interpretive Data was last revised on 2017. Testing performed by: [address] [address] Urine 08/27/2024 2:45 PM CDT 08/27/2024 2:54 PM CDT Narrative MIRTHA - 08/27/2024 3:35 PM CDT Drug of Abuse screening is performed by immunoassay for medical purposes only. This is not to be used for Pain Management purposes. us Esme DAVIS LAB URINE ORDERABLES Final Resul t MIRTHA [address] [facility] Department [place] [address] * (ABNORMAL) Urinalysis, microscopic only (08/27/2024 2:45 PM CDT) WBC, ur 0-5 0 - 5 /HPF Comment:Testing performed by : [address] [address] RBC, ur 0-2 0 - 2 /HPF MIRTHA LUTHER Comment:Testing performed by : [address] [address] Mucous, ur Present(A) MIRTHA LUTHER Comment:Testing performed by : [address] [address] Culture Reflex Comment Reflex conditions for urine culture (WBC >10) not met. MIRTHA Comment:Testing performed by : [address] [address] Urine 08/27/2024 2:45 PM CDT 08/27/2024 2:54 PM CDT us Rehab Lester GARCIA LAB URINE ORDERABLES Final Resu lt MIRTHA [address] [facility] Department [place] [address] * eGFR (08/27/2024 2:43 PM CDT) eGFR >90 >=60 mL/min/1. 73 [...] was last reviewed 2021. Testing performed by: [address] [address] Blood 08/27/2024 2:43 PM CDT 08/27/2024 2:54 PM CDT us Rehab Lester GARCIA LAB BLOOD ORDERABLES Final Resu lt [facility] Department [place] [address] * (ABNORMAL) Differential, auto (08/27/2024 2:43 PM CDT) Neutrophil abs 9.56(H) 1.50 - 6.50 K/cumm Comment:Testing performed by : [address] [address] Imm gran abs 0.06 0.00 - 0.10 K/cumm MIRTHA Comment:Testing performed by : [address] [address] Lymphocyte abs 2.29 0.80 - 3.30 K/cumm MIRTHA Comment:Testing performed by : [address] [address] Monocyte abs 0.67 0.20 - 0.80 K/cumm MIRTHA Comment:Testing performed by : [address] [address] Eosinophil abs 0.00 0.00 - 0.50 K/cumm MIRTHA Comment:Testing performed by : [address] [address] Basophil abs 0.05 0.00 - 0.10 K/cumm MIRTHA Comment:Testing performed by : [address] [address] Neutrophil pct 75.7 % MIRTHA Comment: Interpretive Data Percent cell count reference ranges are not reported, since discordance with absolute values may lead to misinterpretation of CBC data. Current Interpretive Data was last revised on 2017. Testing performed by: [address] [address] Imm gran pct 0.5 % [facility] Comment: Interpretive Data Percent cell count reference ranges are not reported, since discordance with absolute values may lead to misinterpretation of CBC data. Current Interpretive Data was last revised on 2017. Testing performed by: [address] [address] Lymphocyte pct 18.1 % [facility] Comment: Interpretive Data Percent cell count reference ranges are not reported, since discordance with absolute values may lead to misinterpretation of CBC data. Current Interpretive Data was last revised on 2017. Testing performed by: [address] [address] Monocyte pct 5.3 % [facility] Comment: Interpretive Data Percent cell count reference ranges are not reported, since discordance with absolute values may lead to misinterpretation of CBC data. Current Interpretive Data was last revised on 2017. Testing performed by: [address] [address] Eosinophil pct 0.0 % [facility] Comment: Interpretive Data Percent cell count reference ranges are not reported, since discordance with absolute values may lead to misinterpretation of CBC data. Current Interpretive Data was last revised on 2017. Testing performed by: [address] [address] Basophil pct 0.4 % [facility] Comment: Interpretive Data Percent cell count reference ranges are not reported, since discordance with absolute values may lead to misinterpretation of CBC data. Current Interpretive Data was last revised on 2017. Testing performed by: [address] [address] Blood 08/27/2024 2:43 PM CDT 08/27/2024 2:54 PM CDT us Rehab Lester GARCIA LAB BLOOD ORDERABLES Final Resu lt MIRTHA [address] [facility] Department [place] [address] * (ABNORMAL) CBC with auto differential (08/27/2024 2:43 PM CDT) [facility] Signature WBC 12.63(H) 3.80 - 9.90 K/cumm Comment:Testing performed by : [address] [address] Hgb 15.1 13.0 - 17.5 g/dL MIRTHA Comment:Testing performed by : [address] [address] Hct 42.5 38.9 - 50.3 % MIRTHA Comment:Testing performed by : [address] [address] Plt 315 150 - 400 K/cumm MIRTHA Comment:Testing performed by : [address] [address] MPV 10.8 9.1 - 12.3 fL MIRTHA Comment:Testing performed by : [address] [address] RBC 5.41 4.30 - 5.80 M/cumm MIRTHA Comment:Testing performed by : [address] [address] MCV 78.6(L) 81.3 - 96.4 fL MIRTHA Comment:Testing performed by : [address] [address] MCH 27.9 27.1 - 33.3 pg MIRTHA Comment:Testing performed by : [address] [address] MCHC 35.5 32.3 - 35.7 g/dL MIRTHA Comment:Testing performed by : [address] [address] RDW CV 12.7 11.1 - 14.9 % MIRTHA Comment:Testing performed by : [address] [address] RDW SD 36.1 35.7 - 48.1 fL MIRTHA Comment:Testing performed by : [address], [address] NRBC abs 0.00 0.00 - 0.01 K/cumm MIRTHA LUTHER Comment:Testing performed by : [address] [address] Blood Venous blood specimen / Unknown 08/27/2024 2:43 PM CDT 08/27/2024 2:54 PM CDT [facility] G[facility] LAB BLOOD ORDERABLES Final Resu lt Performing Organization Address [facility] de Phone Number [address] [place] [address] * Lipase (08/27/2024 2:43 PM CDT) [facility] Lipase 17 10 - 99 Units/L Comment:Testing performed by : [address], [address] Blood Venous blood specimen / Unknown 08/27/2024 2:43 PM CDT 08/27/2024 2:54 PM CDT [facility] Lester GARCIA LAB BLOOD ORDERABLES Final Resu lt Performing Organization Address [facility] de Phone Number [address] [address] * (ABNORMAL) Comprehensive metabolic panel (08/27/2024 2:43 PM CDT) [facility] Sodium 138 135 - 145 mmol/L Comment:Testing performed by : [address] [address] Potassium, pl 3.2(L) 3.3 - 4.9 mmol/L MIRTHA LUTHER Comment:Testing performed by : [address] [address] Chloride 104 97 - 110 mmol/L MIRTHA LUTHER Comment:Testing performed by : [address] [address] CO2 19(L) 22 - 32 mmol/L MIRTHA LUTHER Comment:Testing performed by : [address] [address] Anion gap 15 2 - 15 mmol/L MIRTHA Comment:Testing performed by : [address] [address] BUN 10 6 - 25 mg/dL [facility] Comment:Testing performed by : [address] [address] Creatinine 0.75(L) 0.80 - 1.30 mg/dL MIRTHA Comment:Testing performed by : [address] [address] Glucose 107 70 - 199 mg/dL [facility] Comment: Interpretive Data Fasting glucose [...] was last revised 2022. Testing performed by: [address] [address] Calcium 10.7(H) 8.5 - 10.3 mg/dL [facility] Comment:Testing performed by : [address] [address] Bilirubin, total 1.1 0.1 - 1.2 mg/dL [facility] Comment:Testing performed by : [address] [address] Protein, pl 7.6 6.5 - 8.5 g/dL [facility] Comment:Testing performed by : [address] [address] Albumin 4.5 3.5 - 5.0 g/dL [facility] Comment:Testing performed by : [address] [address] Alk phos 94 40 - 130 Units/L MIRTHA Comment:Testing performed by : [address] [address] ALT 28 7 - 55 Units/L [facility] Comment:Testing performed by : [facility], [address] [place] [address]., [address] AST 19 10 - 50 Units/L [facility] Comment:Testing performed by : [facility], [address] [place] [address]., [address] Blood 08/27/2024 2:43 PM CDT 08/27/2024 2:54 PM CDT us Rehab Lester GARCIA LAB BLOOD ORDERABLES Final Resu lt [facility] [address] [facility] Department [place] [address] * (ABNORMAL) Differential, auto (08/24/2024 7:46 AM CDT) Pathologist [facility] Neutrophil abs 7.9(H) 1.5 - 6.5 K/cumm Imm gran abs 0.1 0.0 - 0.1 K/cumm [facility] Lymphocyte abs 3.9(H) 0.8 - 3.3 K/cumm [facility] Monocyte abs 1.0(H) 0.2 - 0.8 K/cumm [facility] Eosinophil abs 0.1 0.0 - 0.5 K/cumm [facility] Basophil abs 0.1 0.0 - 0.1 K/cumm [facility] Neutrophil pct 60.5 % [facility] Comment: Interpretive Data Percent cell count reference ranges are not reported, since discordance with absolute values may lead to misinterpretation of CBC data. Current Interpretive Data was last revised on 2017. Imm gran pct 0.5 % [facility] Comment: Interpretive Data Percent cell count reference ranges are not reported, since discordance with absolute values may lead to misinterpretation of CBC data. Current Interpretive Data was last revised on 2017. Lymphocyte pct 29.9 % [facility] Comment: Interpretive Data Percent cell count reference ranges are not reported, since discordance with absolute values may lead to misinterpretation of CBC data. Current Interpretive Data was last revised on 2017. Monocyte pct 7.8 % [facility] Comment: Interpretive Data Percent cell count reference ranges are not reported, since discordance with absolute values may lead to misinterpretation of CBC data. Current Interpretive Data was last revised on 2017. Eosinophil pct 0.8 % [facility] Comment: Interpretive Data Percent cell count reference ranges are not reported, since discordance with absolute values may lead to misinterpretation of CBC data. Current Interpretive Data was last revised on 2017. Basophil pct 0.5 % [facility] Comment: Interpretive Data Percent cell count reference ranges are not reported, since discordance with absolute values may lead to misinterpretation of CBC data. Current Interpretive Data was last revised on 2017. Blood 08/24/2024 7:46 AM CDT 08/24/2024 8:22 AM CDT Javon Garcia MD LAB BLOOD ORDERABLES Final Result Performing Organization Address City/State/[facility] [[email or web address]] Co de Phone Number [facility] [address] [facility] [place] [address] * (ABNORMAL) CBC with auto differential (08/24/2024 7:46 AM CDT) WBC 13.0(H) 3.8 - 9.9 K/cumm Hgb 14.9 13.0 - 17.5 g/dL [facility] Hct 45.2 38.9 - 50.3 % [facility] Plt 250 150 - 400 K/cumm [facility] MPV 10.9 9.1 - 12.3 fL [facility] RBC 5.40 4.30 - 5.80 M/cumm [facility] MCV 83.7 81.3 - 96.4 fL [facility] MCH 27.6 27.1 - 33.3 pg [facility] MCHC 33.0 32.3 - 35.7 g/dL [facility] RDW CV 13.1 11.1 - 14.9 % [facility] RDW SD 39.8 35.7 - 48.1 fL [facility] NRBC abs 0.00 0.00 - 0.01 K/cumm [facility] Blood 08/24/2024 7:46 AM CDT 08/24/2024 8:22 AM CDT us Javon Garcia MD LAB BLOOD ORDERABLES Final Result MIRTHA [address] [facility] Department [place] [address] * (ABNORMAL) Differential, auto (08/23/2024 6:39 AM CDT) Neutrophil abs 12.1(H) 1.5 - 6.5 K/cumm Imm gran abs 0.1 0.0 - 0.1 K/cumm [facility] Lymphocyte abs 1.9 0.8 - 3.3 K/cumm [facility] Monocyte abs 0.9(H) 0.2 - 0.8 K/cumm [facility] Eosinophil abs 0.0 0.0 - 0.5 K/cumm [facility] Basophil abs 0.1 0.0 - 0.1 K/cumm [facility] Neutrophil pct 80.8 % [facility] Comment: Interpretive Data Percent cell count reference ranges are not reported, since discordance with absolute values may lead to misinterpretation of CBC data. Current Interpretive Data was last revised on 2017. Imm gran pct 0.3 % [facility] Comment: Interpretive Data Percent cell count reference ranges are not reported, since discordance with absolute values may lead to misinterpretation of CBC data. Current Interpretive Data was last revised on 2017. Lymphocyte pct 12.4 % [facility] Comment: Interpretive Data Percent cell count reference ranges are not reported, since discordance with absolute values may lead to misinterpretation of CBC data. Current Interpretive Data was last revised on 2017. Monocyte pct 6.1 % [facility] Comment: Interpretive Data Percent cell count reference ranges are not reported, since discordance with absolute values may lead to misinterpretation of CBC data. Current Interpretive Data was last revised on 2017. Eosinophil pct 0.1 % [facility] Comment: Interpretive Data Percent cell count reference ranges are not reported, since discordance with absolute values may lead to misinterpretation of CBC data. Current Interpretive Data was last revised on 2017. Basophil pct 0.3 % [facility] Comment: Interpretive Data Percent cell count reference ranges are not reported, since discordance with absolute values may lead to misinterpretation of CBC data. Current Interpretive Data was last revised on 2017. Blood 08/23/2024 6:39 AM CDT 08/23/2024 7:49 AM CDT Javon Garcia MD LAB BLOOD ORDERABLES Final Result Performing Organization Address City/[facility]/ZIP Co de Phone Number [facility] [address] [place] [address] * (ABNORMAL) CBC with auto differential (08/23/2024 6:39 AM CDT) WBC 15.0(H) 3.8 - 9.9 K/cumm Hgb 15.3 13.0 - 17.5 g/dL [facility] Hct 45.7 38.9 - 50.3 % [facility] Plt 282 150 - 400 K/cumm [facility] MPV 11.1 9.1 - 12.3 fL [facility] RBC 5.56 4.30 - 5.80 M/cumm [facility] MCV 82.2 81.3 - 96.4 fL [facility] MCH 27.5 27.1 - 33.3 pg [facility] MCHC 33.5 32.3 - 35.7 g/dL [facility] RDW CV 13.0 11.1 - 14.9 % [facility] RDW SD 38.5 35.7 - 48.1 fL [facility] NRBC abs 0.00 0.00 - 0.01 K/cumm [facility] Blood 08/23/2024 6:39 AM CDT 08/23/2024 7:49 AM CDT Javon Garcia MD LAB BLOOD ORDERABLES Final Result Performing Organization Address City/[facility]/ZIP Co de Phone Number MIRTHA [address] [place] [address] * XR Chest 1 View (08/22/2024 8:05 [...] signed by Kristopher JIMÉNEZ T: Report ID: [id number] Reading Location: [id number] Procedure Note Kristopher [place] MD - 08/22/2024 [...] signed by Kristopher JIMÉNEZ T: Report ID: [id number] Reading Location: [id number] Javon Garcia MD IMG XR PROCEDURES Fin [...] DO LAB BLOOD ORDERABLES F inal Result [facility] [address] [facility] [place] [address] * (ABNORMAL) Differential, auto (08/22/2024 4:55 AM CDT) Pathologist [facility] Neutrophil abs 12.5(H) 1.5 - 6.5 K/cumm Imm gran abs 0.1 0.0 - 0.1 K/cumm [facility] Lymphocyte abs 1.8 0.8 - 3.3 K/cumm [facility] Monocyte abs 1.0(H) 0.2 - 0.8 K/cumm [facility] Eosinophil abs 0.0 0.0 - 0.5 K/cumm [facility] Basophil abs 0.0 0.0 - 0.1 K/cumm [facility] Neutrophil pct 81.2 % [facility] Comment: Interpretive Data Percent cell count reference ranges are not reported, since discordance with absolute values may lead to misinterpretation of CBC data. Current Interpretive Data was last revised on 2017. Imm gran pct 0.4 % [facility] Comment: Interpretive Data Percent cell count reference ranges are not reported, since discordance with absolute values may lead to misinterpretation of CBC data. Current Interpretive Data was last revised on 2017. Lymphocyte pct 11.6 % [facility] Comment: Interpretive Data Percent cell count reference ranges are not reported, since discordance with absolute values may lead to misinterpretation of CBC data. Current Interpretive Data was last revised on 2017. Monocyte pct 6.6 % [facility] Comment: Interpretive Data Percent cell count reference ranges are not reported, since discordance with absolute values may lead to misinterpretation of CBC data. Current Interpretive Data was last revised on 2017. Eosinophil pct 0.0 % [facility] Comment: Interpretive Data Percent cell count reference ranges are not reported, since discordance with absolute values may lead to misinterpretation of CBC data. Current Interpretive Data was last revised on 2017. Basophil pct 0.2 % [facility] Comment: Interpretive Data Percent cell count reference ranges are not reported, since discordance with absolute values may lead to misinterpretation of CBC data. Current Interpretive Data was last revised on 2017. Blood 08/22/2024 4:55 AM CDT 08/22/2024 5:26 AM CDT Aakash Gillis DO LAB BLOOD ORDERABLES F inal Result [facility] [address] [facility] [place] [address] * HIV 1/2 Antibody plus p24 Antigen Blood (08/22/2024 4:55 AM CDT) HIV 1/2 ab + p24 ag [...] ERAL ORDERABLES Final Result Performing Organization Address [facility] de Phone Number MIRTHA [address] [address] * (ABNORMAL) CBC with auto differential (08/22/2024 4:55 AM CDT) [facility] WBC 15.4(H) 3.8 - 9.9 K/cumm Hgb 14.4 13.0 - 17.5 g/dL [facility] Hct 41.8 38.9 - 50.3 % [facility] Plt 252 150 - 400 K/cumm [facility] MPV 10.8 9.1 - 12.3 fL [facility] RBC 5.08 4.30 - 5.80 M/cumm [facility] MCV 82.3 81.3 - 96.4 fL [facility] MCH 28.3 27.1 - 33.3 pg [facility] MCHC 34.4 32.3 - 35.7 g/dL [facility] RDW CV 12.9 11.1 - 14.9 % [facility] RDW SD 38.6 35.7 - 48.1 fL [facility] NRBC abs 0.00 0.00 - 0.01 K/cumm [facility] Blood 08/22/2024 4:55 AM CDT 08/22/2024 5:26 AM CDT Aakash Gillis DO LAB BLOOD ORDERABLES F inal Result Performing Organization Address [facility] [[email or web address]] Co de Phone Number MIRTHA [address] [place] [address] * Hepatitis panel, acute Blood (08/22/2024 4:55 AM CDT) [facility] Hep A IgM Nonreactive Nonreactive Comment: Interpretive Data: If Hep A IgM Ab is reported as Equivocal, a new sample should be drawn in two weeks for testing. Current interpretive data was last revised on 19. Hep B core IgM Nonreactive Nonreactive [facility] Comment: Interpretive Data If HepB Core IgM Ab is reported as Equivocal, a new sample should be drawn in two weeks for testing. Current interpretive data was last revised on 19. Hep C Ab Nonreactive Nonreactive [facility] Comment: Antibodies to HCV not detected. [...] last revised on 2019. HepBsAg Nonreactive Nonreactive [facility] Blood 08/22/2024 4:55 AM CDT 08/22/2024 5:26 AM CDT Aakash Gillis LAB MICROBIOLOGY - GEN ERAL ORDERABLES Final Result Performing Organization Address [facility]/ZIP Co de Phone Number [address] [place] [address] * Magnesium (08/22/2024 4:55 AM CDT) [facility] Magnesium 1.8 1.4 - 2.5 mg/dL Blood 08/22/2024 4:55 AM CDT 08/22/2024 5:26 AM CDT Aakash Gillis [facility] BLOOD ORDERABLES F inal Result Performing Organization Address City/[facility]/ZIP Co de Phone Number [address] [place] [address] * (ABNORMAL) Basic metabolic panel (08/22/2024 4:55 AM CDT) Pathologist [facility] Sodium 139 135 - 145 mmol/L Potassium, pl 3.3 3.3 - 4.9 mmol/L [facility] Chloride 103 97 - 110 mmol/L [facility] CO2 21(L) 22 - 32 mmol/L [facility] Anion gap 15 2 - 15 mmol/L [facility] BUN 11 6 - 25 mg/dL [facility] Creatinine 0.60(L) 0.80 - 1.30 mg/dL [facility] Glucose 109 70 - 199 mg/dL [facility] Comment: Interpretive Data Fasting glucose >/= [...] 2022. Calcium 9.2 8.5 - 10.3 mg/dL [facility] Blood 08/22/2024 4:55 AM CDT 08/22/2024 5:26 AM CDT us Aakash Gillis DO LAB BLOOD ORDERABLES F inal Result [facility] [address] [facility] [place] [address] * (ABNORMAL) Urinalysis reflex to microscopic and culture Urine (08/21/2024 5:44 PM CDT) Color, ur Yellow Yellow Clarity, ur Clear Clear [facility] Specific gravity, ur 1.028 1.003 - 1.030 [facility] pH, urine 8.5 [facility] Comment: Interpretive Data U rine pH is affected by diet, medications, systemic acid-base disturbances, and renal tubular function. pH may affect urinary stone formation. For example, urine pH below 6.0 may help reduce the tendency for calcium phosphate stones and pH greater than 6.0 may reduce the tendency for uric acid stone formation. Source: [facility] [address] Current Interpretive Data was last revised on 2017 Protein, ur ql 1+(A) Negative [facility] Glucose, ur ql Negative Negative [facility] Ketones, ur 4+(A) Negative [facility] Bilirubin, ur Negative Negative [facility] Blood, ur Negative Negative [facility] Urobilinogen, ur <2.0 <2.0 mg/dL [facility] Nitrite, ur Negative Negative [facility] Leukocyte esterase, ur Negative Negative [facility] UA reflex comment Reflex to microscopic UA will be performed. [facility] Urine 08/21/2024 5:44 PM CDT 08/21/2024 6:38 PM CDT us Russel Ames MD LAB MICROBIOLOGY - GENERAL ORDERABLES Final Result [facility] [address] [facility] Department [place] [address] * (ABNORMAL) Drugs of Abuse Screen, Urine without Confirmation (08/21/2024 5:44 PM CDT) Pathologist [facility] Amphetamine, ur Not Detected CutOff 500ng/mL Comment: Interpretive Data - Amphetamines: Samples containing greater than 500 ng/mL d-methamphetamine or other cross-reacting amphetamine compounds are reported as positive. Amphetamine immunoassays are subject to significant false positive rates due to cross-reactivity of non-amphetamine drugs. Confirmatory testing required for definitive results. Current Interpretive Data was last reviewed 2022. Barbiturates, ur Not Detected CutOff 200ng/mL [facility] Comment: Interpretive Data - Barbiturates: Samples containing greater than 200 ng/mL secobarbital or other cross-reacting barbiturate compounds are reported as positive. False positive and false negative results are possible. Confirmatory testing required for definitive results. Current Interpretive Data was last reviewed 2022. Benzodiazepines, ur Not Detected CutOff 100ng/mL [facility] Comment: Interpretive Data - Benzodiazepines: Samples containing greater than 100 ng/mL nordiazepam or other cross-reacting compounds are reported as positive. False positive and false negative results are possible. Confirmatory testing required for definitive results. Current Interpretive Data was last reviewed 2022. Cannabinoids, ur Screen Positive, presumptive (A) CutOff 50 ng/mL [facility] Comment: Interpretive Data - Cannabinoids: Samples containing greater than 50 ng/mL delta-9 THC -COOH or other cross- reacting compounds are reported as positive. False positive and false negative results are possible. Confirmatory testing required for definitive results. Current Interpretive Data was last reviewed 2022. Cocaine, ur Not Detected CutOff 150ng/mL [facility] Comment: Interpretive Data - Cocaine: Samples containing greater than 150 ng/mL benzoylecgonine or other cross- reacting compounds are reported as positive. False positive and false negative results are possible. Confirmatory testing required for definitive results. Current Interpretive Data was last reviewed 2022. Fentanyl, Ur Not Detected CutOff 5 ng/mL [facility] Comment: Interpretive Data - Fentanyl: Samples containing greater than 5 ng/mL norfentanyl, fentanyl, or other cross-reacting fentanyl compounds are reported as positive. False positive and false negative results are possible. Confirmatory testing required for definitive results. Current Interpretive Data was last reviewed 2023. Methadone, ur Not Detected CutOff 300ng/mL [facility] Comment: Interpretive Data - Methadone: Samples containing greater than 300 ng/mL d,l-methadone or other cross-reacting compounds are reported as positive. False positive and false negative results are possible. Confirmatory testing required for definitive results. Current Interpretive Data was last reviewed 2022. Opiates, ur Not Detected CutOff 300ng/mL [facility] Comment: Interpretive Data - Opiates: Samples containing greater than 300 ng/mL morphine or other cross-reacting compounds are reported as positive. False positive and false negative results are possible. Confirmatory testing required for definitive results. Current Interpretive Data was last reviewed 2022. Oxycodone, ur Screen Positive, presumptive (A) CutOff 100ng/mL [facility] Comment: Interpretive Data - Oxycodone: Samples containing greater than 100 ng/mL oxycodone or other cross-reacting compounds are reported as positive. False positive and false negative results are possible. Confirmatory testing required for definitive results. Current Interpretive Data was last reviewed 2022. Phencyclidine, ur Not Detected CutOff 25 ng/mL [facility] Comment: Interpretive Data - Phencyclidine: Samples containing greater than 25 ng/mL phencyclidine or other cross-reacting compounds are reported as positive. False positive and false negative results are possible. Confirmatory testing required for definitive results. Current Interpretive Data was last reviewed 2022. Urine Creatinine 151 mg/dL [facility] Comment: Interpretive Data Urine Creatinine: < 10 mg/dL is extremely dilute = or > 10 but < 20 mg/dL is dilute = or > 20 mg/dL is normal Current Interpretive Data was last revised on 2017. Urine 08/21/2024 5:44 PM CDT 08/21/2024 6:38 PM CDT Narrative [facility] - 08/21/2024 7:08 PM CDT Drug of Abuse screening is performed by immunoassay for medical purposes only. This is not to be used for Pain Management purposes. Russel Ames MD LAB URINE ORDERABLE S Final Result Performing Organization Address [facility] de Phone Number [address] [place] [address] * (ABNORMAL) Urinalysis, microscopic only (08/21/2024 5:44 PM CDT) WBC, ur 0-5 0 - 5 /HPF RBC, ur 3-5(A) 0 - 2 /HPF [facility] Culture Reflex Comment Reflex conditions for urine culture (WBC >10) not met. [facility] Urine 08/21/2024 5:44 PM CDT 08/21/2024 6:38 PM CDT us Russel Ames MD LAB URINE ORDERABLE S Final Result Performing Organization Address [facility] [[email or web address]] Co de Phone Number [address] [place] [address] * ECG 12 lead (08/21/2024 5:02 PM CDT) Ventricular Rate EKG/Min 94 BPM [facility] Atrial Rate 94 BPM [facility] [place]-Interval (MSEC) 132 ms [facility] QRS-Interval (MSEC) 110 ms [facility] QT-Interval (MSEC) 380 ms [facility] QTc 475 ms [facility] P [place] 44 degrees [facility] R [place] 75 degrees [facility] T [place] 50 degrees [facility] Diagnosis Normal sinus rhythm Incomplete right bundle branch block Borderline ECG When compared with ECG of 14-NOV-2023 17:02, Borderline criteria for Lateral infarct are no longer Present QT has lengthened Confirmed by ELKIN WARD M.D. ([id number]) on 08/22/2024 12:20:09 PM [facility] 08/21/2024 5:02 PM CDT 08/22/2024 12:20 PM CDT us Russel Ames MD ECG ORDERABLES Fin al Result [facility] * eGFR (08/21/2024 4:56 PM CDT) eGFR >90 >=60 mL/min/1. 73 [...] MD LAB BLOOD ORDERABLE S Final Result [facility] [address] [facility] [place] [address] * (ABNORMAL) Differential, auto (08/21/2024 4:56 PM CDT) Neutrophil abs 9.9(H) 1.5 - 6.5 K/cumm Imm gran abs 0.1 0.0 - 0.1 K/cumm [facility] Lymphocyte abs 1.1 0.8 - 3.3 K/cumm [facility] Monocyte abs 0.2 0.2 - 0.8 K/cumm [facility] Eosinophil abs 0.0 0.0 - 0.5 K/cumm [facility] Basophil abs 0.0 0.0 - 0.1 K/cumm [facility] Neutrophil pct 87.3 % [facility] Comment: Interpretive Data Percent cell count reference ranges are not reported, since discordance with absolute values may lead to misinterpretation of CBC data. Current Interpretive Data was last revised on 2017. Imm gran pct 0.4 % [facility] Comment: Interpretive Data Percent cell count reference ranges are not reported, since discordance with absolute values may lead to misinterpretation of CBC data. Current Interpretive Data was last revised on 2017. Lymphocyte pct 10.0 % [facility] Comment: Interpretive Data Percent cell count reference ranges are not reported, since discordance with absolute values may lead to misinterpretation of CBC data. Current Interpretive Data was last revised on 2017. Monocyte pct 1.9 % [facility] Comment: Interpretive Data Percent cell count reference ranges are not reported, since discordance with absolute values may lead to misinterpretation of CBC data. Current Interpretive Data was last revised on 2017. Eosinophil pct 0.1 % [facility] Comment: Interpretive Data Percent cell count reference ranges are not reported, since discordance with absolute values may lead to misinterpretation of CBC data. Current Interpretive Data was last revised on 2017. Basophil pct 0.3 % [facility] Comment: Interpretive Data Percent cell count reference ranges are not reported, since discordance with absolute values may lead to misinterpretation of CBC data. Current Interpretive Data was last revised on 2017. Blood 08/21/2024 4:56 PM CDT 08/21/2024 4:59 PM CDT Russel Ames MD LAB BLOOD ORDERABLE S Final Result Performing Organization Address City/[facility] [[email or web address]] Co de Phone Number M[facility]THA [address] [place] [address] * (ABNORMAL) CBC with auto differential (08/21/2024 4:56 PM CDT) [facility] WBC 11.3(H) 3.8 - 9.9 K/cumm Hgb 15.2 13.0 - 17.5 g/dL [facility] Hct 44.0 38.9 - 50.3 % [facility] Plt 272 150 - 400 K/cumm [facility] MPV 10.2 9.1 - 12.3 fL [facility] RBC 5.52 4.30 - 5.80 M/cumm [facility] MCV 79.7(L) 81.3 - 96.4 fL [facility] MCH 27.5 27.1 - 33.3 pg [facility] MCHC 34.5 32.3 - 35.7 g/dL [facility] RDW CV 12.6 11.1 - 14.9 % [facility] RDW SD 35.8 35.7 - 48.1 fL [facility] NRBC abs 0.00 0.00 - 0.01 K/cumm [facility] Blood 08/21/2024 4:56 PM CDT 08/21/2024 4:59 PM CDT Russel Ames MD LAB BLOOD ORDERABLE S Final Result Performing Organization Address City/[facility]/ZIP Co de Phone Number MIRTHA [address] [place], [place] [id number] * (ABNORMAL) Comprehensive metabolic panel (08/21/2024 4:56 PM CDT) [facility] Sodium 137 135 - 145 mmol/L Potassium, pl 3.6 3.3 - 4.9 mmol/L [facility] Chloride 101 97 - 110 mmol/L [facility] CO2 17(L) 22 - 32 mmol/L [facility] Anion gap 19(H) 2 - 15 mmol/L [facility] BUN 13 6 - 25 mg/dL [facility] Creatinine 0.60(L) 0.80 - 1.30 mg/dL [facility] Glucose 127 70 - 199 mg/dL [facility] Comment: Interpretive Data Fasting glucose >/= [...] 2022. Calcium 10.2 8.5 - 10.3 mg/dL [facility] Bilirubin, total 1.0 0.1 - 1.2 mg/dL [facility] Protein, pl 7.9 6.5 - 8.5 g/dL [facility] Albumin 4.5 3.5 - 5.0 g/dL [facility] Alk phos 102 40 - 130 Units/L [facility] ALT 32 7 - 55 Units/L [facility] AST 33 10 - 50 Units/L [facility] Blood 08/21/2024 4:56 PM CDT 08/21/2024 4:59 PM CDT Russel Ames MD LAB BLOOD ORDERABLE S Final Result Performing Organization Address City/State/[facility] [[email or web address]] Co de Phone Number [facility] [address] [facility] [facility] [place] [address] from Last 3 Months Insurance ON LICENSE OF [facility] AETNA BETTER [facility] [employer]IG[employer] AETNA BETTER [facility] Advance Directives For more information, please contact: [phone] * Full Code (Latest Code Status on File) Date Activated Date Inactivated Comments 08/21/2024 10:57 PM 08/24/2024 4:43 PM * Full Code Date Activated Date Inactivated Comments 11/14/2023 4:42 PM 11/17/2023 5:47 PM Care Teams Motor Pool Clerk Relationship Specialty Start Date End Date No, Physician PCP - General 08/27/24
[2024-09-12 11:47] VITALS: BP 139/94; PULSE 100; RESP 22; TEMP 36.6; O2SAT 100
[2024-09-12 11:53] LABS: Basophils Percent Auto 0.2 % (0.2-1.2); Eosinophils Absolute Auto 0.1 K/mm3 (0-0.3); Eosinophils Percent Auto 0.6 % (0-4.4); Hemoglobin 15.5 g/dL (14.0-18.0); Immature Granulocyte Absolute 0.05 K/mm3 (0.00-0.031); Immature Granulocyte Percent A 0.4 % (0-0.5); Lymphocytes Absolute Auto 1.88 K/mm3 (0.9-3.2); Lymphocytes Percent Auto 14.2 % (18.3-44.2); Mean Corpuscular Hemoglobin 27.8 pg (26-34); Mean Corpuscular Volume 84.2 fl (80-100); Mean Platelet Volume 10.5 fl (7.4-10.4); Monocytes Absolute Auto 0.6 K/mm3 (0.1-0.6); Monocytes Percent Auto 4.4 % (2.6-8.5); Neutrophils Absolute Auto 10.7 K/mm3 (1.3-6.7); Neutrophils Percent Auto 80.2 % (45.5-73.1); Platelet Count Result 286 k/mm3 (150-375); Red Blood Count 5.58 M/mm3 (4.6-6.20); Red Cell Distribution Width 12.8 % (11.5-14.5); White Blood Count 13.3 K/mm3 (4.5-10.0)
[2024-09-12 12:10] LABS: Alanine Aminotransferase 29 U/L (6-50); Albumin Level 4.8 g/dL (3.5-5.1); Alkaline Phosphatase 94 U/L (38-126); Anion Gap 12 mmol/L (4-12); Aspartate Amino Transferase 29 U/L (17-59); Bilirubin,Total 1.2 mg/dL (0.2-1.3); Blood Urea Nitrogen 11 mg/dL (9-20); Calcium 9.9 mg/dL (8.4-10.2); Carbon Dioxide 19 mmol/L (22-30); Chloride 111 mmol/L (98-107); Estimated CRCL calculation 212 ml/min; Estimated Glomerular Filt Rate > 60; Glucose 118 mg/dL (65-110); Lipase 41 U/L (23-300); Potassium 3.8 mmol/L (3.4-5.0); Sodium 142 mmol/L (137-145)
[2024-09-12] MEDS: SODIUM CHLORIDE 0.9% IV 1,000 ML 999 ML IV CONT (12:22)
[2024-09-12] MEDS: HALOPERIDOL LACTATE 5 MG/ML VIAL IV PUSH (12:22)
[2024-09-12] MEDS: diphenhydrAMINE HCl INJ 50 MG/ML VIAL 25 MG IV PUSH (12:22)
--- OUTSIDE RECORDS SUMMARY | 2024-09-12 12:22 | XMS_ITS | Clinical Summary ---
Author Organization [facility] Address [address] [place] [address] Care Team Providers Care Flash Drier Operator Name Role Phone Osbaldo Hong MD [...] COVID-19 Vaccine ( season) 2024 PHQ-2 (Physician [place]) 05/27/2024 Meningococcal B Vaccine Aged Out No [...] complete this topic Insurance T Care Teams Flash Drier Operator Relationship Specialty Start Date End Date Osbaldo Hong MD PCP - General FAMILY PRACTICE 11/30/21
--- OUTSIDE RECORDS SUMMARY | 2024-09-12 12:22 | XMS_ITS ---
Author Organization [facility] Address [address] [place] [address] Phone Care Team Providers Care Milk Powder Grinder Name Role Phone Provider, None Primary Care Provider Unavailabl e [facility] Status:Enrolled (Active) Start date:06/08/2024 Enrollment date:06/08/2024 Related social drivers of health:Social Connections, Alcohol Use, Tobacco Use, Financial Resource Strain, Depression, Stress, Physical Activity Continued Care and Services Coordination
--- OUTSIDE RECORDS SUMMARY | 2024-09-12 12:22 | XMS_ITS | Clinical Summary ---
Author Organization [facility] Address [address] [place] [address] Phone Care Team Providers Care Pullman Car Clerk Name Role Phone Unavailable Primary Care Provider [...]
--- OUTSIDE RECORDS SUMMARY | 2024-09-12 12:23 | XMS_ITS | Clinical Summary ---
Author Organization [place] [address] [facility] Address [facility] [place] [address] Care Team Providers Care Whipper Beater Name Role Phone No, Physician Primary Care Provider [phone] Allergies No known active allergies Medications ondansetron [...] CDT - 08/29/2024 3:51 AM [facility] Department [address] [place] [id number] Bud Simon DO Nausea and vomiting, unspecified vomiting type (Primary Dx); Dehydration Discharge Disposition: Discharge to home or self care 08/28/[address] [address] Nisha Parikh RN 08/27/2024 3:09 PM CDT - 08/27/2024 7:08 PM [facility] Emergency Department [address] [place] [id number] Nausea vomiting and diarrhea (Primary Dx) Discharge Disposition: Discharge to home or self care 08/27/2024 1:35 PM CDT - 08/27/2024 2:27 PM CDT [address] [address] Discharge Disposition: Left without being seen 08/21/2024 5:08 PM CDT - 08/24/2024 12:19 PM CDT Hospital Encounter [address] [address] Aakash Gillis, Javon Davalos MD Substance withdrawal [...] drink = 0.6 oz pur e alcohol) [facility] Utilities Answer Date Recorded In [...] often do you attend chur ch or moravian services? Never 08/24/2024 Do you belong to any clubs o r organizations such as pentecostalism groups, unions, fraternal or athletic groups, or [...] any time in the past 12 [facility], were you homeless or living in a care home (including now)? No 08/24/2024 Personal Safety Answer Date Recorded Have you ever been in or are you currently in a harmful physical or emotional relationship or is someone making you feel afraid or unsafe? Denies 08/29/2024 Sex and Gender Information Value Date Recorded Sex Assigned at Not on file Legal Sex Male 6:55 PM [employer] Gender Identity Not on file Sexual Orientation [...] Adelina Cloud M.D. FT: FT Report ID: [id number] Reading Location: [place] [address] Procedure Note Adelina Chavez MD - 08/27/2024 [...] Adelina Cloud M.D. FT: FT Report ID: [id number] Reading Location: [place] [address] PROCEDURES Final Result * (ABNORMAL) Urinalysis reflex to microscopic and culture Urine (08/27/2024 2:45 PM CDT) Color, ur Mary Yellow Comment:Testing performed by : [address] [address] Clarity, ur Turbid(A) Clear MIRTHA Comment:Testing performed by : [address] [address] Specific gravity, ur 1.025 1.003 - 1.030 MIRTHA Comment:Testing performed by : [address] [address] pH, urine 8.5 MIRTHA Comment: Interpretive Data U rine pH is affected by diet, medications, systemic acid-base disturbances, and renal tubular function. pH may affect urinary stone formation. For example, urine pH below 6.0 may help reduce the tendency for calcium phosphate stones and pH greater than 6.0 may reduce the tendency for uric acid stone formation. Source: Harrell Natanael Ulien Current Interpretive Data was last revised on 2017 Testing performed by: [address] [address] Protein, ur ql 1+(A) Negative MIRTHA LUTHER Comment:Testing performed by : [facility], [address] [place] [address], [place]., [address] Glucose, ur ql Negative Negative MIRTHA Comment:Testing performed by : [facility], [address] [place] [address], [place]., [address] Ketones, ur 2+(A) Negative MIRTHA Comment:Testing performed by : [address], [place]., [address] Bilirubin, ur Negative Negative MIRTHA Comment:Testing performed by : [address], [place]., [address] Blood, ur Negative Negative MIRTHA Comment:Testing performed by : [address], [place]., [address] Urobilinogen, ur <2.0 <2.0 mg/dL MIRTHA Comment:Testing performed by : [address], [place]., [address] Nitrite, ur Negative Negative MIRTHA Comment:Testing performed by : [address], [place]., [address] Leukocyte esterase, ur Negative Negative MIRTHA Comment:Testing performed by : [address], [place]., [address] UA reflex comment Reflex to microscopic UA will be performed. MIRTHA Comment:Testing performed by : [address], [place]., [address] Urine 08/27/2024 2:45 PM CDT 08/27/2024 2:54 PM CDT us Rehab Lester GARCIA LAB MICROBIOLOGY - GENERAL YASSINE FRIEND Final Result MIRTHA [address] [facility] [place] [address] * (ABNORMAL) Drugs of Abuse Screen, Urine without Confirmation (08/27/2024 2:45 PM CDT) [facility] Amphetamine, ur Not Detected CutOff 500ng/mL Comment: Interpretive Data - Amphetamines: Samples containing greater than 500 ng/mL d-methamphetamine or other cross-reacting amphetamine compounds are reported as positive. Amphetamine immunoassays are subject to significant false positive rates due to cross-reactivity of non-amphetamine drugs. Confirmatory testing required for definitive results. Current Interpretive Data was last reviewed 2022. Testing performed by: [facility], [address] [place] [address]., [address] Barbiturates, ur Not Detected CutOff 200ng/mL [facility] Comment: Interpretive Data - Barbiturates: Samples containing greater than 200 ng/mL secobarbital or other cross-reacting barbiturate compounds are reported as positive. False positive and false negative results are possible. Confirmatory testing required for definitive results. Current Interpretive Data was last reviewed 2022. Testing performed by: [address] [address] Benzodiazepines, ur Not Detected CutOff 100ng/mL [facility] Comment: Interpretive Data - Benzodiazepines: Samples containing greater than 100 ng/mL nordiazepam or other cross-reacting compounds are reported as positive. False positive and false negative results are possible. Confirmatory testing required for definitive results. Current Interpretive Data was last reviewed 2022. Testing performed by: [address] [address] Cannabinoids, ur Screen Positive, presumptive (A) CutOff 50 ng/mL [facility] Comment: Interpretive Data - Cannabinoids: Samples containing greater than 50 ng/mL delta-9 THC -COOH or other cross- reacting compounds are reported as positive. False positive and false negative results are possible. Confirmatory testing required for definitive results. Current Interpretive Data was last reviewed 2022. Testing performed by: [address] [address] Cocaine, ur Not Detected CutOff 150ng/mL [facility] Comment: Interpretive Data - Cocaine: Samples containing greater than 150 ng/mL benzoylecgonine or other cross- reacting compounds are reported as positive. False positive and false negative results are possible. Confirmatory testing required for definitive results. Current Interpretive Data was last reviewed 2022. Testing performed by: [address] [address] Fentanyl, Ur Not Detected CutOff 5 ng/mL [facility] Comment: Interpretive Data - Fentanyl: Samples containing greater than 1 ng/mL fentanyl or other cross-reacting fentanyl compounds are reported as positive. False positive and false negative results are possible. Confirmatory testing required for definitive results. Current Interpretive Data was last reviewed 2022. Testing performed by: [address] [address] Methadone, ur Not Detected CutOff 300ng/mL MIRTHA Comment: Interpretive Data - Methadone: Samples containing greater than 300 ng/mL d,l-methadone or other cross-reacting compounds are reported as positive. False positive and false negative results are possible. Confirmatory testing required for definitive results. Current Interpretive Data was last reviewed 2022. Testing performed by: [address] [address] Opiates, ur Not Detected CutOff 300ng/mL MIRTHA Comment: Interpretive Data - Opiates: Samples containing greater than 300 ng/mL morphine or other cross-reacting compounds are reported as positive. False positive and false negative results are possible. Confirmatory testing required for definitive results. Current Interpretive Data was last reviewed 2022. Testing performed by: [address] [address] Oxycodone, ur Screen Positive, presumptive (A) CutOff 100ng/mL MIRTHA Comment: Interpretive Data - Oxycodone: Samples containing greater than 100 ng/mL oxycodone or other cross-reacting compounds are reported as positive. False positive and false negative results are possible. Confirmatory testing required for definitive results. Current Interpretive Data was last reviewed 2022. Testing performed by: [address] [address] Phencyclidine, ur Not Detected CutOff 25 ng/mL [facility] Comment: Interpretive Data - Phencyclidine: Samples containing greater than 25 ng/mL phencyclidine or other cross-reacting compounds are reported as positive. False positive and false negative results are possible. Confirmatory testing required for definitive results. Current Interpretive Data was last reviewed 2022. Testing performed by: [address] [address] Urine Creatinine 187 mg/dL MIRTHA Comment: Interpretive Data Urine Creatinine: < 10 mg/dL is extremely dilute = or > 10 but < 20 mg/dL is dilute = or > 20 mg/dL is normal Current Interpretive Data was last revised on 2017. Testing performed by: [address] [address] Urine 08/27/2024 2:45 PM CDT 08/27/2024 2:54 PM CDT Narrative MIRTHA - 08/27/2024 3:35 PM CDT Drug of Abuse screening is performed by immunoassay for medical purposes only. This is not to be used for Pain Management purposes. Esme DAVIS LAB URINE ORDERABLES Final Resul t Performing Organization Address [facility] Co de Phone Number [address] [place] [address] * (ABNORMAL) Urinalysis, microscopic only (08/27/2024 2:45 PM CDT) WBC, ur 0-5 0 - 5 /HPF Comment:Testing performed by : [address] [address] RBC, ur 0-2 0 - 2 /HPF MIRTHA Comment:Testing performed by : [address] [address] Mucous, ur Present(A) MIRTHA Comment:Testing performed by : [address] [address] Culture Reflex Comment Reflex conditions for urine culture (WBC >10) not met. MIRTHA Comment:Testing performed by : [address] [address] Urine 08/27/2024 2:45 PM CDT 08/27/2024 2:54 PM CDT Yolette Batista MD LAB URINE ORDERABLES Final Resu lt Performing Organization Address [facility]/ZIP Co de Phone Number [address] [place] [employer] [place] [address] * eGFR (08/27/2024 2:43 PM CDT) Pathologist [facility] eGFR [...] was last reviewed 2021. Testing performed by: [address] [address] Blood 08/27/2024 2:43 PM CDT 08/27/2024 2:54 PM CDT us Rehab Lester GARCIA LAB BLOOD ORDERABLES Final Resu lt MIRTHA [address] [facility] [place] [address] * (ABNORMAL) Differential, auto (08/27/2024 2:43 PM CDT) Pathologist [facility] Neutrophil abs 9.56(H) 1.50 - 6.50 K/cumm Comment:Testing performed by : [address] [address] Imm gran abs 0.06 0.00 - 0.10 K/cumm MIRTHA LUTHER Comment:Testing performed by : [address] [address] Lymphocyte abs 2.29 0.80 - 3.30 K/cumm MIRTHA LUTHER Comment:Testing performed by : [address] [place] [address] Monocyte abs 0.67 0.20 - 0.80 K/cumm [facility] Comment:Testing performed by : [address] [address] Eosinophil abs 0.00 0.00 - 0.50 K/cumm MIRTHA Comment:Testing performed by : [address] [address] Basophil abs 0.05 0.00 - 0.10 K/cumm [facility] Comment:Testing performed by : [address] [address] Neutrophil pct 75.7 % [facility] Comment: Interpretive Data Percent cell count reference ranges are not reported, since discordance with absolute values may lead to misinterpretation of CBC data. Current Interpretive Data was last revised on 2017. Testing performed by: [address] [address] Imm gran pct 0.5 % [facility] Comment: Interpretive Data Percent cell count reference ranges are not reported, since discordance with absolute values may lead to misinterpretation of CBC data. Current Interpretive Data was last revised on 2017. Testing performed by: [address] [address] Lymphocyte pct 18.1 % [facility] Comment: Interpretive Data Percent cell count reference ranges are not reported, since discordance with absolute values may lead to misinterpretation of CBC data. Current Interpretive Data was last revised on 2017. Testing performed by: [address] [address] Monocyte pct 5.3 % [facility] Comment: Interpretive Data Percent cell count reference ranges are not reported, since discordance with absolute values may lead to misinterpretation of CBC data. Current Interpretive Data was last revised on 2017. Testing performed by: [address] [address] Eosinophil pct 0.0 % [facility] Comment: Interpretive Data Percent cell count reference ranges are not reported, since discordance with absolute values may lead to misinterpretation of CBC data. Current Interpretive Data was last revised on 2017. Testing performed by: [address] [address] Basophil pct 0.4 % MIRTHA LUTHER Comment: Interpretive Data Percent cell count reference ranges are not reported, since discordance with absolute values may lead to misinterpretation of CBC data. Current Interpretive Data was last revised on 2017. Testing performed by: [address] [address] Blood 08/27/2024 2:43 PM CDT 08/27/2024 2:54 PM CDT us Rehab L[facility] GARCIA LAB BLOOD ORDERABLES Final Resu lt MIRTHA LUTHER [facility] [place] [address] * (ABNORMAL) CBC with auto differential (08/27/2024 2:43 PM CDT) WBC 12.63(H) 3.80 - 9.90 K/cumm Comment:Testing performed by : [address] [address] Hgb 15.1 13.0 - 17.5 g/dL MIRTHA LUTHER Comment:Testing performed by : [address] [address] Hct 42.5 38.9 - 50.3 % MIRTHA LUTHER Comment:Testing performed by : [address] [address] Plt 315 150 - 400 K/cumm MIRTHA LUTHER Comment:Testing performed by : [address] [address] MPV 10.8 9.1 - 12.3 fL MIRTHA LUTHER Comment:Testing performed by : [address] [address] RBC 5.41 4.30 - 5.80 M/cumm MIRTHA LUTHER Comment:Testing performed by : [address] [address] MCV 78.6(L) 81.3 - 96.4 fL MIRTHA LUTHER Comment:Testing performed by : [address] [address] MCH 27.9 27.1 - 33.3 pg MIRTHA LUTHER Comment:Testing performed by : [address] [address] MCHC 35.5 32.3 - 35.7 g/dL MIRTHA LUTHER Comment:Testing performed by : [address] [address] RDW CV 12.7 11.1 - 14.9 % MIRTHA LUTHER Comment:Testing performed by : [address] [address] RDW SD 36.1 35.7 - 48.1 fL MIRTHA LUTHER Comment:Testing performed by : [address] [address] NRBC abs 0.00 0.00 - 0.01 K/cumm MIRTHA LUTHER Comment:Testing performed by : [address], [address] Blood Venous blood specimen / Unknown 08/27/2024 2:43 PM CDT 08/27/2024 2:54 PM CDT Rehab [facility] GARCIA LAB BLOOD ORDERABLES Final Resu lt Performing Organization Address City/[facility]/ZIP Co de Phone Number [address] [place] [address] * Lipase (08/27/2024 2:43 PM CDT) [facility] Signature Lipase 17 10 - 99 Units/L Comment:Testing performed by : [address] [address] Blood Venous blood specimen / Unknown 08/27/2024 2:43 PM CDT 08/27/2024 2:54 PM CDT [facility] BLOOD ORDERABLES Final Resu lt [address] [place] [employer] [address] * (ABNORMAL) Comprehensive metabolic panel (08/27/2024 2:43 PM CDT) Sodium 138 135 - 145 mmol/L Comment:Testing performed by : [address] [address] Potassium, pl 3.2(L) 3.3 - 4.9 mmol/L MIRTHA Comment:Testing performed by : [address] [address] Chloride 104 97 - 110 mmol/L MIRTHA Comment:Testing performed by : [address] [address] CO2 19(L) 22 - 32 mmol/L MIRTHA Comment:Testing performed by : [address] [address] Anion gap 15 2 - 15 mmol/L MIRTHA Comment:Testing performed by : [address] [address] BUN 10 6 - 25 mg/dL MIRTHA Comment:Testing performed by : [address] [address] Creatinine 0.75(L) 0.80 - 1.30 mg/dL MIRTHA Comment:Testing performed by : [address] [address] Glucose 107 70 - 199 mg/dL MIRTHA [...] was last revised 2022. Testing performed by: [address] [address] Calcium 10.7(H) 8.5 - 10.3 mg/dL MIRTHA Comment:Testing performed by : [address] [place]., [address] Bilirubin, total 1.1 0.1 - 1.2 mg/dL MIRTHA Comment:Testing performed by : [facility], [address] [place] [address]., [address] Protein, pl 7.6 6.5 - 8.5 g/dL MIRTHA Comment:Testing performed by : [address] [address] Albumin 4.5 3.5 - 5.0 g/dL MIRTHA Comment:Testing performed by : [address], [address] Alk phos 94 40 - 130 Units/L MIRTHA Comment:Testing performed by : [address], [address] ALT 28 7 - 55 Units/L MIRTHA Comment:Testing performed by : [address], [address] AST 19 10 - 50 Units/L MIRTHA Comment:Testing performed by : [address] [address] Blood 08/27/2024 2:43 PM CDT 08/27/2024 2:54 PM CDT us Rehab Lester GARCIA LAB BLOOD ORDERABLES Final Resu lt [facility] [address] [facility] [place] [address] * (ABNORMAL) Differential, auto (08/24/2024 7:46 AM CDT) Pathologist [facility] Neutrophil abs 7.9(H) 1.5 - 6.5 K/cumm [...] Garcia MD LAB BLOOD ORDERABLES Final Result [facility] [address] [facility] [place] [address] * (ABNORMAL) CBC with auto [...] BLOOD ORDERABLES Final Result Performing Organization Address City/State/[facility] Co de Phone Number [facility] [address] [facility] [place] [address] * (ABNORMAL) Differential, auto (08/23/2024 6:39 AM CDT) Pathologist [facility] Neutrophil abs 12.1(H) 1.5 - 6.5 K/cumm [...] Garcia MD LAB BLOOD ORDERABLES Final Result [facility] [address] [facility] [place] [address] * (ABNORMAL) CBC with auto [...] RDW CV 13.0 11.1 - 14.9 % [facility] RDW SD 38.5 35.7 - 48.1 fL [facility] NRBC abs 0.00 0.00 - 0.01 K/cumm MIRTHA Blood 08/23/2024 6:39 AM CDT 08/23/2024 7:49 AM CDT us Javon Garcia MD LAB BLOOD ORDERABLES Final Result MIRTHA [address] [facility] [place] [address] * XR Chest 1 View (08/22/2024 8:05 [...] signed by Kristopher JIMÉNEZ T: Report ID: [id number] Reading Location: [id number] Procedure Note Kristopher Shelby MD - 08/22/2024 [...] Kristopher Shelby M.D. JA T: Report ID: [id number] Reading Location: [id number] Javon Garcia MD IMG XR PROCEDURES Fin [...] DO LAB BLOOD ORDERABLES F inal Result [facility] [address] [facility] Department of Laboratories [place], [place] [id number] * (ABNORMAL) Differential, auto (08/22/2024 4:55 AM CDT) Pathologist [facility] Neutrophil abs 12.5(H) 1.5 - 6.5 K/cumm [...] revised on 2017. Lymphocyte pct 11.6 % [facility] Comment: Interpretive Data Percent cell count reference ranges are not reported, since discordance with absolute values may lead to misinterpretation of CBC data. Current Interpretive Data was last revised on 2017. Monocyte pct 6.6 % [facility] Comment: Interpretive Data Percent cell count reference ranges are not reported, since discordance with absolute values may lead to misinterpretation of CBC data. Current Interpretive Data was last revised on 2017. Eosinophil pct 0.0 % [facility] [...] ORDERABLES F inal Result Performing Organization Address [facility] Co de Phone Number [address] [address] * HIV 1/2 Antibody plus p24 Antigen Blood (08/22/2024 4:55 AM CDT) [facility] HIV 1/2 ab + p24 ag [...] ERAL ORDERABLES Final Result Performing Organization Address [facility] Co de Phone Number [address] [address] * (ABNORMAL) CBC with auto differential (08/22/2024 4:55 AM CDT) [facility] WBC 15.4(H) 3.8 - 9.9 K/cumm [...] ORDERABLES F inal Result Performing Organization Address City/[facility]/ZIP Co de Phone Number MIRTHA [address] [place] [employer] [place] [address] * Hepatitis panel, acute Blood (08/22/2024 4:55 AM CDT) Pathologist [facility] Hep A IgM Nonreactive Nonreactive Comment: Interpretive [...] ERAL ORDERABLES Final Result Performing Organization Address [facility] Co de Phone Number [place] [id number] [facility] [place] [address] * Magnesium (08/22/2024 4:55 AM CDT) Pathologist [facility] Magnesium 1.8 1.4 - 2.5 mg/dL Blood 08/22/2024 4:55 AM CDT 08/22/2024 5:26 AM CDT Aakash Lolis Gillis LAB BLOOD ORDERABLES F inal Result [address] [place] [address] * (ABNORMAL) Basic metabolic panel (08/22/2024 4:55 AM CDT) [facility] Sodium 139 135 - 145 mmol/L [...] Gillis LAB BLOOD ORDERABLES F inal Result [address] [place] [address] * (ABNORMAL) Urinalysis reflex to microscopic and [...] tendency for uric acid stone formation. Source: [facility] Current Interpretive Data was last revised [...] GENERAL ORDERABLES Final Result [facility] [address] [facility] [place] [address] * (ABNORMAL) Drugs of Abuse Screen, Urine [...] last reviewed 2022. Urine Creatinine 151 mg/dL [facility] Comment: Interpretive Data Urine Creatinine: < 10 mg/dL is extremely dilute = or > 10 but < 20 mg/dL is dilute = or > 20 mg/dL is normal Current Interpretive Data was last revised on 2017. Urine 08/21/2024 5:44 PM CDT 08/21/2024 6:38 PM CDT Narrative [facility] - 08/21/2024 7:08 PM CDT Drug of Abuse screening is performed by immunoassay for medical purposes only. This is not to be used for Pain Management purposes. Russel Ames MD LAB URINE ORDERABLE S Final Result [facility] [address] [facility] [place] [address] * (ABNORMAL) Urinalysis, microscopic only (08/21/2024 5:44 PM CDT) WBC, ur 0-5 0 - 5 /HPF RBC, ur 3-5(A) 0 - 2 /HPF [facility] Culture Reflex Comment Reflex conditions for urine culture (WBC >10) not met. [facility] Urine 08/21/2024 5:44 PM CDT 08/21/2024 6:38 PM CDT us Russel Ames MD LAB URINE ORDERABLE S Final Result Performing Organization Address [facility] Co de Phone Number MIRTHA [address] [facility] [place] [address] * ECG 12 lead (08/21/2024 5:02 PM CDT) Pathologist [facility] Ventricular Rate EKG/Min 94 BPM [facility] Atrial Rate 94 BPM [facility] [place]-Interval (MSEC) 132 ms [facility] QRS-Interval (MSEC) 110 ms [facility] QT-Interval (MSEC) 380 ms [facility] QTc 475 ms [facility] P [place] 44 degrees [facility] R [place] 75 degrees [facility] T [place] 50 degrees [facility] Diagnosis Normal sinus rhythm Incomplete right bundle branch block Borderline ECG When compared with ECG of 14-NOV-2023 17:02, Borderline criteria for Lateral infarct are no longer Present QT has lengthened Confirmed by ELKIN WARD M.D. ([id number]) on 08/22/2024 12:20:09 PM [facility] 08/21/2024 5:02 PM CDT 08/22/2024 12:20 PM CDT us Russel Ames MD ECG ORDERABLES Fin al Result Performing Organization Address [facility] de Phone Number [facility] * eGFR (08/21/2024 4:56 PM CDT) Pathologist [facility] eGFR [...] MD LAB BLOOD ORDERABLE S Final Result [facility] [facility] [facility] [place] [address] * (ABNORMAL) Differential, auto (08/21/2024 4:56 PM [...] MD LAB BLOOD ORDERABLE S Final Result [facility] [address] [facility] [place] [address] * (ABNORMAL) CBC with auto differential (08/21/2024 [...] MD LAB BLOOD ORDERABLE S Final Result [facility] [address] [facility] [place] [address] * (ABNORMAL) Comprehensive metabolic panel (08/21/2024 4:56 PM CDT) Pathologist [facility] Sodium 137 135 - 145 mmol/L Potassium, [...] ORDERABLE S Final Result [facility] [address] [facility] [place] [address] from Last [address] [facility] [facility] [employer] [facility] Advance Directives For more information, please contact: [phone] * Full Code (Latest Code Status on File) Date Activated Date Inactivated Comments 08/21/2024 10:57 PM 08/24/2024 4:43 PM * Full Code Date Activated Date Inactivated Comments 11/14/2023 4:42 PM 11/17/2023 5:47 PM Care Teams Whipper Beater Relationship Specialty Start Date End Date No, Physician PCP - General 08/27/24
--- OUTSIDE RECORDS SUMMARY | 2024-09-12 12:23 | XMS_ITS | Clinical Summary ---
Author Organization [facility] Address [address] [place] [address] Phone Care Team Providers Care Third Mate Name Role Phone Provider, None Primary Care [...] Years Used Date Smoking Tobacco: Never Assessed [facility] Utilities Answer Date Recorded In the [...] any time in the past 12 m [facility], were you homeless or living in a [facility] (including now)? No 04/24/2024 Sex and Gender Information Value Date Recorded Sex Assigned at Not on file Legal Sex Male 5:01 AM CDT Gender Identity Not on file Sexual Orientation Not on file Last Filed Vital Signs Vital Sign Reading Time Taken Comments Blood Pressure 126/74 04/25/2024 5:20 AM TATTOOER Pulse 72 04/25/2024 5:20 AM TATTOOER Temperature 36.8 C (98.3 F) 04/25/2024 5:20 AM TATTOOER Respiratory Rate 18 04/25/2024 5:20 AM TATTOOER Oxygen Saturation 99% 04/25/2024 5:20 AM TATTOOER Inhaled Oxygen Concentration - - Weight 129.3 kg (285 lb) 04/24/2024 9:15 AM TATTOOER Height 182.9 cm (6') 04/24/2024 9:15 AM TATTOOER Body Mass Index 38.65 04/24/2024 9:15 AM TATTOOER Plan of Treatment Health Maintenance Due Date [...] to complete this topic Insurance MEDICAID AETNA [facility] Advance Directives * Full Code (Latest Code Status on File) Date Activated Date Inactivated Comments 04/24/2024 12:36 PM CPR-Full [place] atment: FULL ARREST: Attempt Resuscitation/CPR wit intubation and mechanical ventilation. PRE-ARREST: Use entire range of life support measures to stabilize the patient. Care Teams Third Mate Relationship Specialty Start Date End Date Provider, None DELILAH PCP - General 01/15/22
--- OUTSIDE RECORDS SUMMARY | 2024-09-12 12:23 | XMS_ITS | Referral Summary ---
Author Organization [place] [id number] [facility] Address [address] [place] [address] Care Team Providers Care Upholsterer Helper Name Role Phone No, Physician Primary Care Provider [phone] Encounters Date Type Department Care Team Description 08/29/2024 1:12 AM CDT - 08/29/2024 3:51 AM CDT Emergency [facility] Emergency Department [address] [place] [id number] Bud Simon DO Nausea and vomiting, unspecified vomiting type (Primary Dx); Dehydration Discharge Disposition: Discharge to home or self care 08/28/[address] [address] Nisha Parikh RN 08/27/2024 3:09 PM CDT - 08/27/2024 7:08 PM CDT Emergency [facility] Emergency Department [address] [place] [id number] Nausea vomiting and diarrhea (Primary Dx) Discharge Disposition: Discharge to home or self care 08/27/2024 1:35 PM CDT - 08/27/2024 2:27 PM CDT Emergency [address] [address] Discharge Disposition: Left without being seen 08/21/2024 5:08 PM CDT - 08/24/2024 12:19 PM CDT Hospital Encounter [address] [address] Aakash Gillis, Javon Davalos MD Substance withdrawal [...] drink = 0.6 oz pur e alcohol) [facility] Utilities Answer Date Recorded In the past 12 months has [employer], [employer], [employer], or water [employer] threatened to shut off services in your [...] often do you attend chur ch or jewish services? Never 08/24/2024 Do you belong to any clubs o r organizations such as jain groups, unions, fraternal or athletic groups, or [...] in the past 12 m [facility], were you homeless or living in a retirement (including now)? No 08/24/2024 Personal Safety Answer Date Recorded Have you ever been in or are you currently in a harmful physical or emotional relationship or is someone making you feel afraid or unsafe? Denies 08/29/2024 Sex and Gender Information Value Date Recorded Sex Assigned at Not on file Legal Sex Male 6:55 PM [employer] Gender Identity Not on file Sexual Orientation [...] Adelina Cloud M.D. FT: FT Report ID: [id number] Reading Location: [place] [address] Procedure Note Adelina Chavez MD - 08/27/2024 [...] Adelina Cloud M.D. FT: FT Report ID: [id number] Reading Location: [id number] Esme DAVIS IM CT PROCEDURES Final Result * (ABNORMAL) Urinalysis reflex to microscopic and culture Urine (08/27/2024 2:45 PM CDT) Color, ur Mary Yellow Comment:Testing performed by : [address] [address] Clarity, ur Turbid(A) Clear MIRTHA Comment:Testing performed by : [address] [address] Specific gravity, ur 1.025 1.003 - 1.030 MIRTHA Comment:Testing performed by : [address] [address] pH, urine 8.5 MIRTHA Comment: Interpretive Data U rine pH is affected by diet, medications, systemic acid-base disturbances, and renal tubular function. pH may affect urinary stone formation. For example, urine pH below 6.0 may help reduce the tendency for calcium phosphate stones and pH greater than 6.0 may reduce the tendency for uric acid stone formation. Source: [facility] [employer] Current Interpretive Data was last revised on 2017 Testing performed by: [address] [address] Protein, ur ql 1+(A) Negative MIRTHA Comment:Testing performed by : [address] [address] Glucose, ur ql Negative Negative MIRTHA Comment:Testing performed by : [address] [address] Ketones, ur 2+(A) Negative MIRTHA Comment:Testing performed by : [address] [address] Bilirubin, ur Negative Negative MIRTHA Comment:Testing performed by : [address] [address] Blood, ur Negative Negative MIRTHA Comment:Testing performed by : [address] [address] Urobilinogen, ur <2.0 <2.0 mg/dL MIRTHA LUTHER Comment:Testing performed by : [address] [address] Nitrite, ur Negative Negative MIRTHA LUTHER Comment:Testing performed by : [address], [place]., [address] Leukocyte esterase, ur Negative Negative MIRTHA LTUHER Comment:Testing performed by : [address] [address] UA reflex comment Reflex to microscopic UA will be performed. MIRTHA LUTHER Comment:Testing performed by : [address], [place]., [address] Urine 08/27/2024 2:45 PM CDT 08/27/2024 2:54 PM CDT [facility] Lester GARCIA LAB MICROBIOLOGY - [facility] YASSINE FRIEND Final Result MIRTHA [address] [facility] Department [place] [address] * (ABNORMAL) Drugs of Abuse Screen, Urine without Confirmation (08/27/2024 2:45 PM CDT) Pathologist [facility] Amphetamine, ur Not Detected CutOff 500ng/mL Comment: Interpretive Data - Amphetamines: Samples containing greater than 500 ng/mL d-methamphetamine or other cross-reacting amphetamine compounds are reported as positive. Amphetamine immunoassays are subject to significant false positive rates due to cross-reactivity of non-amphetamine drugs. Confirmatory testing required for definitive results. Current Interpretive Data was last reviewed 2022. Testing performed by: [address] [address] Barbiturates, ur Not Detected CutOff 200ng/mL MIRTHA LUTHER Comment: Interpretive Data - Barbiturates: Samples containing greater than 200 ng/mL secobarbital or other cross-reacting barbiturate compounds are reported as positive. False positive and false negative results are possible. Confirmatory testing required for definitive results. Current Interpretive Data was last reviewed 2022. Testing performed by: [address] [address] Benzodiazepines, ur Not Detected CutOff 100ng/mL MIRTHA MH Comment: Interpretive Data - Benzodiazepines: Samples containing greater than 100 ng/mL nordiazepam or other cross-reacting compounds are reported as positive. False positive and false negative results are possible. Confirmatory testing required for definitive results. Current Interpretive Data was last reviewed 2022. Testing performed by: [facility], [address] [place] [address]., [address] Cannabinoids, ur Screen Positive, presumptive (A) CutOff 50 ng/mL [facility] Comment: Interpretive Data - Cannabinoids: Samples containing greater than 50 ng/mL delta-9 THC -COOH or other cross- reacting compounds are reported as positive. False positive and false negative results are possible. Confirmatory testing required for definitive results. Current Interpretive Data was last reviewed 2022. Testing performed by: [address], [place]., [address] Cocaine, ur Not Detected CutOff 150ng/mL [facility] Comment: Interpretive Data - Cocaine: Samples containing greater than 150 ng/mL benzoylecgonine or other cross- reacting compounds are reported as positive. False positive and false negative results are possible. Confirmatory testing required for definitive results. Current Interpretive Data was last reviewed 2022. Testing performed by: [address] [address] Fentanyl, Ur Not Detected CutOff 5 ng/mL [facility] Comment: Interpretive Data - Fentanyl: Samples containing greater than 1 ng/mL fentanyl or other cross-reacting fentanyl compounds are reported as positive. False positive and false negative results are possible. Confirmatory testing required for definitive results. Current Interpretive Data was last reviewed 2022. Testing performed by: [address] [address] Methadone, ur Not Detected CutOff 300ng/mL [facility] Comment: Interpretive Data - Methadone: Samples containing greater than 300 ng/mL d,l-methadone or other cross-reacting compounds are reported as positive. False positive and false negative results are possible. Confirmatory testing required for definitive results. Current Interpretive Data was last reviewed 2022. Testing performed by: [address] [address] Opiates, ur Not Detected CutOff 300ng/mL [facility] Comment: Interpretive Data - Opiates: Samples containing greater than 300 ng/mL morphine or other cross-reacting compounds are reported as positive. False positive and false negative results are possible. Confirmatory testing required for definitive results. Current Interpretive Data was last reviewed 2022. Testing performed by: [address] [address] Oxycodone, ur Screen Positive, presumptive (A) CutOff 100ng/mL MIRTHA Comment: Interpretive Data - Oxycodone: Samples containing greater than 100 ng/mL oxycodone or other cross-reacting compounds are reported as positive. False positive and false negative results are possible. Confirmatory testing required for definitive results. Current Interpretive Data was last reviewed 2022. Testing performed by: [address] [address] Phencyclidine, ur Not Detected CutOff 25 ng/mL MIRTHA Comment: Interpretive Data - Phencyclidine: Samples containing greater than 25 ng/mL phencyclidine or other cross-reacting compounds are reported as positive. False positive and false negative results are possible. Confirmatory testing required for definitive results. Current Interpretive Data was last reviewed 2022. Testing performed by: [address] [address] Urine Creatinine 187 mg/dL MIRTHA Comment: Interpretive Data Urine Creatinine: < 10 mg/dL is extremely dilute = or > 10 but < 20 mg/dL is dilute = or > 20 mg/dL is normal Current Interpretive Data was last revised on 2017. Testing performed by: [address] [address] Urine 08/27/2024 2:45 PM CDT 08/27/2024 2:54 PM CDT Narrative MIRTHA - 08/27/2024 3:35 PM CDT Drug of Abuse screening is performed by immunoassay for medical purposes only. This is not to be used for Pain Management purposes. us Esme DAVIS LAB URINE ORDERABLES Final Resul t MIRTHA [address] [facility] Department [place] [address] * (ABNORMAL) Urinalysis, microscopic only (08/27/2024 2:45 PM CDT) WBC, ur 0-5 0 - 5 /HPF Comment:Testing performed by : [address] [address] RBC, ur 0-2 0 - 2 /HPF MIRTHA LUTHER Comment:Testing performed by : [address] [address] Mucous, ur Present(A) MIRTHA LUTHER Comment:Testing performed by : [address] [address] Culture Reflex Comment Reflex conditions for urine culture (WBC >10) not met. MIRTHA Comment:Testing performed by : [address] [address] Urine 08/27/2024 2:45 PM CDT 08/27/2024 2:54 PM CDT us Rehab Lester GARCIA LAB URINE ORDERABLES Final Resu lt MIRTHA [address] [facility] Department [place] [address] * eGFR (08/27/2024 2:43 PM CDT) eGFR [...] was last reviewed 2021. Testing performed by: [address] [address] Blood 08/27/2024 2:43 PM CDT 08/27/2024 2:54 PM CDT us Rehab Lester GARCIA LAB BLOOD ORDERABLES Final Resu lt [facility] Department [place] [address] * (ABNORMAL) Differential, auto (08/27/2024 2:43 PM CDT) Neutrophil abs 9.56(H) 1.50 - 6.50 K/cumm Comment:Testing performed by : [address] [address] Imm gran abs 0.06 0.00 - 0.10 K/cumm MIRTHA Comment:Testing performed by : [address] [address] Lymphocyte abs 2.29 0.80 - 3.30 K/cumm MIRTHA Comment:Testing performed by : [address] [address] Monocyte abs 0.67 0.20 - 0.80 K/cumm MIRTHA Comment:Testing performed by : [address] [address] Eosinophil abs 0.00 0.00 - 0.50 K/cumm MIRTHA Comment:Testing performed by : [address] [address] Basophil abs 0.05 0.00 - 0.10 K/cumm MIRTHA Comment:Testing performed by : [address] [address] Neutrophil pct 75.7 % MIRTHA Comment: Interpretive Data Percent cell count reference ranges are not reported, since discordance with absolute values may lead to misinterpretation of CBC data. Current Interpretive Data was last revised on 2017. Testing performed by: [address] [address] Imm gran pct 0.5 % [facility] Comment: Interpretive Data Percent cell count reference ranges are not reported, since discordance with absolute values may lead to misinterpretation of CBC data. Current Interpretive Data was last revised on 2017. Testing performed by: [address] [address] Lymphocyte pct 18.1 % [facility] Comment: Interpretive Data Percent cell count reference ranges are not reported, since discordance with absolute values may lead to misinterpretation of CBC data. Current Interpretive Data was last revised on 2017. Testing performed by: [address] [address] Monocyte pct 5.3 % [facility] Comment: Interpretive Data Percent cell count reference ranges are not reported, since discordance with absolute values may lead to misinterpretation of CBC data. Current Interpretive Data was last revised on 2017. Testing performed by: [address] [address] Eosinophil pct 0.0 % [facility] Comment: Interpretive Data Percent cell count reference ranges are not reported, since discordance with absolute values may lead to misinterpretation of CBC data. Current Interpretive Data was last revised on 2017. Testing performed by: [address] [address] Basophil pct 0.4 % [facility] Comment: Interpretive Data Percent cell count reference ranges are not reported, since discordance with absolute values may lead to misinterpretation of CBC data. Current Interpretive Data was last revised on 2017. Testing performed by: [address] [address] Blood 08/27/2024 2:43 PM CDT 08/27/2024 2:54 PM CDT us Rehab Lester GARCIA LAB BLOOD ORDERABLES Final Resu lt MIRTHA [address] [facility] Department [place] [address] * (ABNORMAL) CBC with auto differential (08/27/2024 2:43 PM CDT) [facility] Signature WBC 12.63(H) 3.80 - 9.90 K/cumm Comment:Testing performed by : [address] [address] Hgb 15.1 13.0 - 17.5 g/dL MIRTHA Comment:Testing performed by : [address] [address] Hct 42.5 38.9 - 50.3 % MIRTHA Comment:Testing performed by : [address] [address] Plt 315 150 - 400 K/cumm MIRTHA Comment:Testing performed by : [address] [address] MPV 10.8 9.1 - 12.3 fL MIRTHA Comment:Testing performed by : [address] [address] RBC 5.41 4.30 - 5.80 M/cumm MIRTHA Comment:Testing performed by : [address] [address] MCV 78.6(L) 81.3 - 96.4 fL MIRTHA Comment:Testing performed by : [address] [address] MCH 27.9 27.1 - 33.3 pg MIRTHA Comment:Testing performed by : [address] [address] MCHC 35.5 32.3 - 35.7 g/dL MIRTHA Comment:Testing performed by : [address] [address] RDW CV 12.7 11.1 - 14.9 % MIRTHA Comment:Testing performed by : [address] [address] RDW SD 36.1 35.7 - 48.1 fL MIRTHA Comment:Testing performed by : [address], [address] NRBC abs 0.00 0.00 - 0.01 K/cumm MIRTHA LUTHER Comment:Testing performed by : [address] [address] Blood Venous blood specimen / Unknown 08/27/2024 2:43 PM CDT 08/27/2024 2:54 PM CDT [facility] Lester GARCIA LAB BLOOD ORDERABLES Final Resu lt Performing Organization Address [facility] de Phone Number [address] [place] [address] * Lipase (08/27/2024 2:43 PM CDT) [facility] Lipase 17 10 - 99 Units/L Comment:Testing performed by : [address], [address] Blood Venous blood specimen / Unknown 08/27/2024 2:43 PM CDT 08/27/2024 2:54 PM CDT [facility] Lester GARCIA LAB BLOOD ORDERABLES Final Resu lt Performing Organization Address [facility] de Phone Number [address] [address] * (ABNORMAL) Comprehensive metabolic panel (08/27/2024 2:43 PM CDT) [facility] Sodium 138 135 - 145 mmol/L Comment:Testing performed by : [address] [address] Potassium, pl 3.2(L) 3.3 - 4.9 mmol/L MIRTHA LUTHER Comment:Testing performed by : [address] [address] Chloride 104 97 - 110 mmol/L MIRTHA LUTHER Comment:Testing performed by : [address] [address] CO2 19(L) 22 - 32 mmol/L MIRTHA LUTHER Comment:Testing performed by : [address] [address] Anion gap 15 2 - 15 mmol/L MIRTHA Comment:Testing performed by : [address] [address] BUN 10 6 - 25 mg/dL [facility] Comment:Testing performed by : [address] [address] Creatinine 0.75(L) 0.80 - 1.30 mg/dL MIRTHA Comment:Testing performed by : [address] [address] Glucose 107 70 - 199 mg/dL [facility] Comment: Interpretive Data Fasting glucose >/= [...] was last revised 2022. Testing performed by: [address] [address] Calcium 10.7(H) 8.5 - 10.3 mg/dL [facility] Comment:Testing performed by : [address] [address] Bilirubin, total 1.1 0.1 - 1.2 mg/dL [facility] Comment:Testing performed by : [address] [address] Protein, pl 7.6 6.5 - 8.5 g/dL [facility] Comment:Testing performed by : [address] [address] Albumin 4.5 3.5 - 5.0 g/dL [facility] Comment:Testing performed by : [address] [address] Alk phos 94 40 - 130 Units/L MIRTHA Comment:Testing performed by : [address] [address] ALT 28 7 - 55 Units/L [facility] Comment:Testing performed by : [facility], [address] [place] [address]., [address] AST 19 10 - 50 Units/L [facility] Comment:Testing performed by : [facility], [address] [place] [address]., [address] Blood 08/27/2024 2:43 PM CDT 08/27/2024 2:54 PM CDT us Rehab Lester GARCIA LAB BLOOD ORDERABLES Final Resu lt [facility] [address] [facility] Department [place] [address] * (ABNORMAL) Differential, auto (08/24/2024 7:46 AM CDT) Pathologist [facility] Neutrophil abs 7.9(H) 1.5 - 6.5 K/cumm Imm gran abs 0.1 0.0 - 0.1 K/cumm [facility] Lymphocyte abs 3.9(H) 0.8 - 3.3 K/cumm [facility] Monocyte abs 1.0(H) 0.2 - 0.8 K/cumm [facility] Eosinophil abs 0.1 0.0 - 0.5 K/cumm [facility] Basophil abs 0.1 0.0 - 0.1 K/cumm [facility] Neutrophil pct 60.5 % [facility] Comment: Interpretive Data Percent cell count reference ranges are not reported, since discordance with absolute values may lead to misinterpretation of CBC data. Current Interpretive Data was last revised on 2017. Imm gran pct 0.5 % [facility] Comment: Interpretive Data Percent cell count reference ranges are not reported, since discordance with absolute values may lead to misinterpretation of CBC data. Current Interpretive Data was last revised on 2017. Lymphocyte pct 29.9 % [facility] Comment: Interpretive Data Percent cell count reference ranges are not reported, since discordance with absolute values may lead to misinterpretation of CBC data. Current Interpretive Data was last revised on 2017. Monocyte pct 7.8 % [facility] Comment: Interpretive Data Percent cell count reference ranges are not reported, since discordance with absolute values may lead to misinterpretation of CBC data. Current Interpretive Data was last revised on 2017. Eosinophil pct 0.8 % [facility] Comment: Interpretive Data Percent cell count reference ranges are not reported, since discordance with absolute values may lead to misinterpretation of CBC data. Current Interpretive Data was last revised on 2017. Basophil pct 0.5 % [facility] Comment: Interpretive Data Percent cell count reference ranges are not reported, since discordance with absolute values may lead to misinterpretation of CBC data. Current Interpretive Data was last revised on 2017. Blood 08/24/2024 7:46 AM CDT 08/24/2024 8:22 AM CDT Javon Garcia MD LAB BLOOD ORDERABLES Final Result Performing Organization Address City/State/[facility] Co de Phone Number [facility] [address] [facility] [place] [address] * (ABNORMAL) CBC with auto differential (08/24/2024 7:46 AM CDT) WBC 13.0(H) 3.8 - 9.9 K/cumm Hgb 14.9 13.0 - 17.5 g/dL [facility] Hct 45.2 38.9 - 50.3 % [facility] Plt 250 150 - 400 K/cumm [facility] MPV 10.9 9.1 - 12.3 fL [facility] RBC 5.40 4.30 - 5.80 M/cumm [facility] MCV 83.7 81.3 - 96.4 fL [facility] MCH 27.6 27.1 - 33.3 pg [facility] MCHC 33.0 32.3 - 35.7 g/dL [facility] RDW CV 13.1 11.1 - 14.9 % [facility] RDW SD 39.8 35.7 - 48.1 fL [facility] NRBC abs 0.00 0.00 - 0.01 K/cumm [facility] Blood 08/24/2024 7:46 AM CDT 08/24/2024 8:22 AM CDT us Javon Garcia MD LAB BLOOD ORDERABLES Final Result MIRTHA [address] [facility] [place] [address] * (ABNORMAL) Differential, auto (08/23/2024 6:39 AM CDT) Neutrophil abs 12.1(H) 1.5 - 6.5 K/cumm Imm gran abs 0.1 0.0 - 0.1 K/cumm [facility] Lymphocyte abs 1.9 0.8 - 3.3 K/cumm [facility] Monocyte abs 0.9(H) 0.2 - 0.8 K/cumm [facility] Eosinophil abs 0.0 0.0 - 0.5 K/cumm [facility] Basophil abs 0.1 0.0 - 0.1 K/cumm [facility] Neutrophil pct 80.8 % [facility] Comment: Interpretive Data Percent cell count reference ranges are not reported, since discordance with absolute values may lead to misinterpretation of CBC data. Current Interpretive Data was last revised on 2017. Imm gran pct 0.3 % [facility] Comment: Interpretive Data Percent cell count reference ranges are not reported, since discordance with absolute values may lead to misinterpretation of CBC data. Current Interpretive Data was last revised on 2017. Lymphocyte pct 12.4 % [facility] Comment: Interpretive Data Percent cell count reference ranges are not reported, since discordance with absolute values may lead to misinterpretation of CBC data. Current Interpretive Data was last revised on 2017. Monocyte pct 6.1 % [facility] Comment: Interpretive Data Percent cell count reference ranges are not reported, since discordance with absolute values may lead to misinterpretation of CBC data. Current Interpretive Data was last revised on 2017. Eosinophil pct 0.1 % [facility] Comment: Interpretive Data Percent cell count reference ranges are not reported, since discordance with absolute values may lead to misinterpretation of CBC data. Current Interpretive Data was last revised on 2017. Basophil pct 0.3 % [facility] Comment: Interpretive Data Percent cell count reference ranges are not reported, since discordance with absolute values may lead to misinterpretation of CBC data. Current Interpretive Data was last revised on 2017. Blood 08/23/2024 6:39 AM CDT 08/23/2024 7:49 AM CDT Javon Garcia MD LAB BLOOD ORDERABLES Final Result Performing Organization Address City/[facility]/ZIP Co de Phone Number [facility] [address] [place] [address] * (ABNORMAL) CBC with auto differential (08/23/2024 6:39 AM CDT) WBC 15.0(H) 3.8 - 9.9 K/cumm Hgb 15.3 13.0 - 17.5 g/dL [facility] Hct 45.7 38.9 - 50.3 % [facility] Plt 282 150 - 400 K/cumm [facility] MPV 11.1 9.1 - 12.3 fL [facility] RBC 5.56 4.30 - 5.80 M/cumm [facility] MCV 82.2 81.3 - 96.4 fL [facility] MCH 27.5 27.1 - 33.3 pg [facility] [facility] MCHC 33.5 32.3 - 35.7 g/dL [facility] RDW CV 13.0 11.1 - 14.9 % [facility] RDW SD 38.5 35.7 - 48.1 fL [facility] NRBC abs 0.00 0.00 - 0.01 K/cumm [facility] Blood 08/23/2024 6:39 AM CDT 08/23/2024 7:49 AM CDT Javon Garcia MD LAB BLOOD ORDERABLES Final Result Performing Organization Address City/[facility] Hospital/ZIP Co de Phone Number MIRTHA [address] [place] [address] * XR Chest 1 View (08/22/2024 8:05 [...] signed by Kristopher JIMÉNEZ T: Report ID: [id number] Reading Location: [id number] Procedure Note Kristopher Shelby MD - 08/22/2024 [...] signed by Kristopher JIMÉNEZ T: Report ID: [id number] Reading Location: [id number] Javon Garcia MD IMG XR PROCEDURES Fin [...] DO LAB BLOOD ORDERABLES F inal Result [facility] [address] [facility] [place] [address] * (ABNORMAL) Differential, auto (08/22/2024 4:55 AM CDT) Pathologist [facility] Neutrophil abs 12.5(H) 1.5 - 6.5 K/cumm Imm gran abs 0.1 0.0 - 0.1 K/cumm [facility] Lymphocyte abs 1.8 0.8 - 3.3 K/cumm [facility] Monocyte abs 1.0(H) 0.2 - 0.8 K/cumm [facility] Eosinophil abs 0.0 0.0 - 0.5 K/cumm [facility] Basophil abs 0.0 0.0 - 0.1 K/cumm [facility] Neutrophil pct 81.2 % [facility] Comment: Interpretive Data Percent cell count reference ranges are not reported, since discordance with absolute values may lead to misinterpretation of CBC data. Current Interpretive Data was last revised on 2017. Imm gran pct 0.4 % [facility] Comment: Interpretive Data Percent cell count reference [...] revised on 2017. Eosinophil pct 0.0 % [facility] Comment: Interpretive Data Percent cell count reference ranges are not reported, since discordance with absolute values may lead to misinterpretation of CBC data. Current Interpretive Data was last revised on 2017. Basophil pct 0.2 % [facility] Comment: Interpretive Data Percent cell count reference ranges are not reported, since discordance with absolute values may lead to misinterpretation of CBC data. Current Interpretive Data was last revised on 2017. Blood 08/22/2024 4:55 AM CDT 08/22/2024 5:26 AM CDT Aakash Gillis DO LAB BLOOD ORDERABLES F inal Result MIRTHA [address] [facility] Department [place] [address] * HIV 1/2 Antibody plus p24 Antigen [...] Final Result Performing Organization Address [facility] de Phone Number MIRTHA [address] [address] * (ABNORMAL) CBC with auto differential (08/22/2024 4:55 AM CDT) [facility] WBC 15.4(H) 3.8 - 9.9 K/cumm Hgb 14.4 13.0 - 17.5 g/dL [facility] Hct 41.8 38.9 - 50.3 % [facility] Plt 252 150 - 400 K/cumm [facility] MPV 10.8 9.1 - 12.3 fL [facility] RBC 5.08 4.30 - 5.80 M/cumm [facility] MCV 82.3 81.3 - 96.4 fL [facility] MCH 28.3 27.1 - 33.3 pg [facility] MCHC 34.4 32.3 - 35.7 g/dL [facility] RDW CV 12.9 11.1 - 14.9 % [facility] RDW SD 38.6 35.7 - 48.1 fL [facility] NRBC abs 0.00 0.00 - 0.01 K/cumm [facility] Blood 08/22/2024 4:55 AM CDT 08/22/2024 5:26 AM CDT Aakash Gillis DO LAB BLOOD ORDERABLES F inal Result Performing Organization Address [facility] Co de Phone Number MIRTHA [address] [place] [address] * Hepatitis panel, acute Blood (08/22/2024 4:55 AM CDT) [facility] Hep A IgM Nonreactive Nonreactive Comment: Interpretive Data: If Hep A IgM Ab is reported as Equivocal, a new sample should be drawn in two weeks for testing. Current interpretive data was last revised on 19. Hep B core IgM Nonreactive Nonreactive [facility] Comment: Interpretive Data If HepB Core IgM Ab is reported as Equivocal, a new sample should be drawn in two weeks for testing. Current interpretive data was last revised on 19. Hep C Ab Nonreactive Nonreactive [facility] Comment: Antibodies to HCV not detected. Does [...] last revised on 2019. HepBsAg Nonreactive Nonreactive [facility] Blood 08/22/2024 4:55 AM CDT 08/22/2024 5:26 AM CDT Aakash Gillis LAB MICROBIOLOGY - GEN ERAL ORDERABLES Final Result Performing Organization Address [facility]/ZIP Co de Phone Number [address] [place] [address] * Magnesium (08/22/2024 4:55 AM CDT) [facility] Magnesium 1.8 1.4 - 2.5 mg/dL Blood 08/22/2024 4:55 AM CDT 08/22/2024 5:26 AM CDT Aakash Gillis [facility] BLOOD ORDERABLES F inal Result Performing Organization Address City/[facility] Hospital/ZIP Co de Phone Number [address] [place] [address] * (ABNORMAL) Basic metabolic panel (08/22/2024 4:55 AM CDT) Pathologist [facility] Sodium 139 135 - 145 mmol/L Potassium, pl 3.3 3.3 - 4.9 mmol/L [facility] Chloride 103 97 - 110 mmol/L [facility] CO2 21(L) 22 - 32 mmol/L [facility] Anion gap 15 2 - 15 mmol/L [facility] BUN 11 6 - 25 mg/dL [facility] Creatinine 0.60(L) 0.80 - 1.30 mg/dL [facility] Glucose 109 70 - 199 mg/dL [facility] Comment: Interpretive Data Fasting glucose >/= 126 [...] 2022. Calcium 9.2 8.5 - 10.3 mg/dL [facility] Blood 08/22/2024 4:55 AM CDT 08/22/2024 5:26 AM CDT us Aakash Gillis DO LAB BLOOD ORDERABLES F inal Result [facility] [address] [facility] Department [place] [address] * (ABNORMAL) Urinalysis reflex to microscopic and culture Urine (08/21/2024 5:44 PM CDT) Color, ur Yellow Yellow Clarity, ur Clear Clear [facility] Specific gravity, ur 1.028 1.003 - 1.030 [facility] pH, urine 8.5 [facility] Comment: Interpretive Data U rine pH is affected by diet, medications, systemic acid-base disturbances, and renal tubular function. pH may affect urinary stone formation. For example, urine pH below 6.0 may help reduce the tendency for calcium phosphate stones and pH greater than 6.0 may reduce the tendency for uric acid stone formation. Source: [facility] [employer] Current Interpretive Data was last revised on 2017 Protein, ur ql 1+(A) Negative [facility] Glucose, ur ql Negative Negative [facility] Ketones, ur 4+(A) Negative [facility] Bilirubin, ur Negative Negative [facility] Blood, ur Negative Negative [facility] Urobilinogen, ur <2.0 <2.0 mg/dL [facility] Nitrite, ur Negative Negative [facility] Leukocyte esterase, ur Negative Negative [facility] UA reflex comment Reflex to microscopic UA will be performed. [facility] Urine 08/21/2024 5:44 PM CDT 08/21/2024 6:38 PM CDT us Russel Ames MD LAB MICROBIOLOGY - GENERAL ORDERABLES Final Result [facility] [address] [facility] Department [place] [address] * (ABNORMAL) Drugs of Abuse Screen, Urine without Confirmation (08/21/2024 5:44 PM CDT) Pathologist [facility] Amphetamine, ur Not Detected CutOff 500ng/mL Comment: Interpretive Data - Amphetamines: Samples containing greater than 500 ng/mL d-methamphetamine or other cross-reacting amphetamine compounds are reported as positive. Amphetamine immunoassays are subject to significant false positive rates due to cross-reactivity of non-amphetamine drugs. Confirmatory testing required for definitive results. Current Interpretive Data was last reviewed 2022. Barbiturates, ur Not Detected CutOff 200ng/mL [facility] Comment: Interpretive Data - Barbiturates: Samples containing greater than 200 ng/mL secobarbital or other cross-reacting barbiturate compounds are reported as positive. False positive and false negative results are possible. Confirmatory testing required for definitive results. Current Interpretive Data was last reviewed 2022. Benzodiazepines, ur Not Detected CutOff 100ng/mL [facility] Comment: Interpretive Data - Benzodiazepines: Samples containing greater than 100 ng/mL nordiazepam or other cross-reacting compounds are reported as positive. False positive and false negative results are possible. Confirmatory testing required for definitive results. Current Interpretive Data was last reviewed 2022. Cannabinoids, ur Screen Positive, presumptive (A) CutOff 50 ng/mL [facility] Comment: Interpretive Data - Cannabinoids: Samples containing greater than 50 ng/mL delta-9 THC -COOH or other cross- reacting compounds are reported as positive. False positive and false negative results are possible. Confirmatory testing required for definitive results. Current Interpretive Data was last reviewed 2022. Cocaine, ur Not Detected CutOff 150ng/mL [facility] Comment: Interpretive Data - Cocaine: Samples containing greater than 150 ng/mL benzoylecgonine or other cross- reacting compounds are reported as positive. False positive and false negative results are possible. Confirmatory testing required for definitive results. Current Interpretive Data was last reviewed 2022. Fentanyl, Ur Not Detected CutOff 5 ng/mL [facility] Comment: Interpretive Data - Fentanyl: Samples containing greater than 5 ng/mL norfentanyl, fentanyl, or other cross-reacting fentanyl compounds are reported as positive. False positive and false negative results are possible. Confirmatory testing required for definitive results. Current Interpretive Data was last reviewed 2023. Methadone, ur Not Detected CutOff 300ng/mL [facility] Comment: Interpretive Data - Methadone: Samples containing greater than 300 ng/mL d,l-methadone or other cross-reacting compounds are reported as positive. False positive and false negative results are possible. Confirmatory testing required for definitive results. Current Interpretive Data was last reviewed 2022. Opiates, ur Not Detected CutOff 300ng/mL [facility] Comment: Interpretive Data - Opiates: Samples containing greater than 300 ng/mL morphine or other cross-reacting compounds are reported as positive. False positive and false negative results are possible. Confirmatory testing required for definitive results. Current Interpretive Data was last reviewed 2022. Oxycodone, ur Screen Positive, presumptive (A) CutOff 100ng/mL [facility] Comment: Interpretive Data - Oxycodone: Samples containing greater than 100 ng/mL oxycodone or other cross-reacting compounds are reported as positive. False positive and false negative results are possible. Confirmatory testing required for definitive results. Current Interpretive Data was last reviewed 2022. Phencyclidine, ur Not Detected CutOff 25 ng/mL [facility] Comment: Interpretive Data - Phencyclidine: Samples containing [...] Final Result Performing Organization Address [facility] de Phone Number [address] [place] [address] * (ABNORMAL) Urinalysis, microscopic only (08/21/2024 5:44 PM CDT) WBC, ur 0-5 0 - 5 /HPF RBC, ur 3-5(A) 0 - 2 /HPF [facility] Culture Reflex Comment Reflex conditions for urine culture (WBC >10) not met. MIRTHA Urine 08/21/2024 5:44 PM CDT 08/21/2024 6:38 PM CDT us Russel Ames MD LAB URINE ORDERABLE S Final Result Performing Organization Address [facility] Co de Phone Number [address] [place] [address] * ECG 12 lead (08/21/2024 5:02 PM CDT) Ventricular Rate EKG/Min 94 BPM [facility] Atrial Rate 94 BPM [facility] LA-Interval (MSEC) 132 ms [facility] QRS-Interval (MSEC) 110 ms [facility] QT-Interval (MSEC) 380 ms [facility] QTc 475 ms [facility] P [place] 44 degrees [facility] R [place] 75 degrees [facility] T [place] 50 degrees [facility] Diagnosis Normal sinus rhythm Incomplete right bundle branch block Borderline ECG When compared with ECG of 14-NOV-2023 17:02, Borderline criteria for Lateral infarct are no longer Present QT has lengthened Confirmed by ELKIN WARD M.D. ([id number]) on 08/22/2024 12:20:09 PM [facility] 08/21/2024 5:02 PM CDT 08/22/2024 12:20 PM CDT us Russel Ames MD ECG ORDERABLES Fin al Result [facility] * eGFR (08/21/2024 4:56 PM CDT) eGFR [...] LAB BLOOD ORDERABLE S Final Result MIRTHA [address] [facility] [place] [address] * (ABNORMAL) Differential, auto (08/21/2024 4:56 PM CDT) Neutrophil abs 9.9(H) 1.5 - 6.5 K/cumm Imm gran abs 0.1 0.0 - 0.1 K/cumm [facility] Lymphocyte abs 1.1 0.8 - 3.3 K/cumm [facility] Monocyte abs 0.2 0.2 - 0.8 K/cumm [facility] Eosinophil abs 0.0 0.0 - 0.5 K/cumm [facility] Basophil abs 0.0 0.0 - 0.1 K/cumm [facility] Neutrophil pct 87.3 % [facility] Comment: Interpretive Data Percent cell count reference ranges are not reported, since discordance with absolute values may lead to misinterpretation of CBC data. Current Interpretive Data was last revised on 2017. Imm gran pct 0.4 % [facility] Comment: Interpretive Data Percent cell count reference ranges are not reported, since discordance with absolute values may lead to misinterpretation of CBC data. Current Interpretive Data was last revised on 2017. Lymphocyte pct 10.0 % [facility] Comment: Interpretive Data Percent cell count reference ranges are not reported, since discordance with absolute values may lead to misinterpretation of CBC data. Current Interpretive Data was last revised on 2017. Monocyte pct 1.9 % [facility] Comment: Interpretive Data Percent cell count reference ranges are not reported, since discordance with absolute values may lead to misinterpretation of CBC data. Current Interpretive Data was last revised on 2017. Eosinophil pct 0.1 % [facility] Comment: Interpretive Data Percent cell count reference ranges are not reported, since discordance with absolute values may lead to misinterpretation of CBC data. Current Interpretive Data was last revised on 2017. Basophil pct 0.3 % [facility] Comment: Interpretive Data Percent cell count reference ranges are not reported, since discordance with absolute values may lead to misinterpretation of CBC data. Current Interpretive Data was last revised on 2017. Blood 08/21/2024 4:56 PM CDT 08/21/2024 4:59 PM CDT Russel Ames MD LAB BLOOD ORDERABLE S Final Result Performing Organization Address City/[facility] Co de Phone Number MIRTHA [address] [place] [address] * (ABNORMAL) CBC with auto differential (08/21/2024 4:56 PM CDT) [facility] WBC 11.3(H) 3.8 - 9.9 K/cumm Hgb 15.2 13.0 - 17.5 g/dL [facility] Hct 44.0 38.9 - 50.3 % [facility] Plt 272 150 - 400 K/cumm [facility] MPV 10.2 9.1 - 12.3 fL [facility] RBC 5.52 4.30 - 5.80 M/cumm [facility] MCV 79.7(L) 81.3 - 96.4 fL [facility] MCH 27.5 27.1 - 33.3 pg [facility] MCHC 34.5 32.3 - 35.7 g/dL [facility] RDW CV 12.6 11.1 - 14.9 % [facility] RDW SD 35.8 35.7 - 48.1 fL [facility] NRBC abs 0.00 0.00 - 0.01 K/cumm [facility] Blood 08/21/2024 4:56 PM CDT 08/21/2024 4:59 PM CDT Russel Ames MD LAB BLOOD ORDERABLE S Final Result Performing Organization Address City/[facility] Hospital/ZIP Co de Phone Number MIRTHA [address] [employer] [place], [place] [id number] * (ABNORMAL) Comprehensive metabolic panel (08/21/2024 4:56 PM CDT) [facility] Sodium 137 135 - 145 mmol/L Potassium, pl 3.6 3.3 - 4.9 mmol/L [facility] Chloride 101 97 - 110 mmol/L [facility] CO2 17(L) 22 - 32 mmol/L [facility] Anion gap 19(H) 2 - 15 mmol/L [facility] BUN 13 6 - 25 mg/dL [facility] Creatinine 0.60(L) 0.80 - 1.30 mg/dL [facility] Glucose 127 70 - 199 mg/dL [facility] Comment: Interpretive Data Fasting glucose >/= 126 [...] 2022. Calcium 10.2 8.5 - 10.3 mg/dL [facility] Bilirubin, total 1.0 0.1 - 1.2 mg/dL [facility] Protein, pl 7.9 6.5 - 8.5 g/dL [facility] Albumin 4.5 3.5 - 5.0 g/dL [facility] Alk phos 102 40 - 130 Units/L [facility] ALT 32 7 - 55 Units/L [facility] AST 33 10 - 50 Units/L [facility] Blood 08/21/2024 4:56 PM CDT 08/21/2024 4:59 PM CDT Russel Ames MD LAB BLOOD ORDERABLE S Final Result Performing Organization Address City/State/[facility] Co de Phone Number [facility] [address] [facility] [place] [address] from Last 3 Months Insurance [facility] AETNA BETTER [facility] CIGNA AETNA BETTER [facility] Advance Directives For more information, please contact: [phone] * Full Code (Latest Code Status on File) Date Activated Date Inactivated Comments 08/21/2024 10:57 PM 08/24/2024 4:43 PM * Full Code Date Activated Date Inactivated Comments 11/14/2023 4:42 PM 11/17/2023 5:47 PM Care Teams Upholsterer Helper Relationship Specialty Start Date End Date No, Physician PCP - General 08/27/24
[2024-09-12] MEDS: PROCHLORPERAZINE EDISYLATE 10 MG/2 ML VIAL IV PUSH (13:06)
[2024-09-12 14:07] VITALS: BP 146/90; PULSE 88; RESP 16; O2SAT 100
--- NOTE | 2024-09-12 14:14 | ED_ITS ---
HPI - General Adult General Chief complaint: Nausea/Vomiting/Diarrhea Stated complaint: N/V/D since yesterday, abd pain Time Seen by Provider: 09/12/24 11:57 History of Present Illness HPI narrative: Patient is a 24-year-old gentleman who presents emergency department with chief complaint of nausea vomiting and diarrhea since yesterday. The patient reports that he has history of cannabis hyperemesis reports that he has not used marijuana in 2 weeks and reports that he has not been able to keep anything down. Related Data Allergies Allergy/AdvReac Type Severity Reaction Status Date / Time No Known Allergies Allergy Verified 09/12/24 11:29 Review of Systems 2 Review of Systems: A 10 system review of systems was completed on the patient and is negative except for what is stated in the HPI. Nursing and ancillary documentation was reviewed. [facility] Past Medical History Medical History Cannabinoid hyperemesis syndrome Surgical History Surgical History No pertinent past surgical history Social History Social History Alcohol intake: never Substance use: current Substance use type: marijuana Exam 2 Narrative: GENERAL: Well-appearing, well-nourished, and in no acute distress. HEAD: Normocephalic, atraumatic. EYES: PERRLA and EOMI. ENT: Nares clear, no rhinorrhea or epistaxis. Mucous membranes moist. NECK: Supple. CHEST: Clear to auscultation. No respiratory distress. HEART: Regular rate and rhythm. No murmur heard. Normal peripheral pulses. ABDOMEN: Soft, nontender, nondistended, normal active bowel sounds. EXTREMITIES: Normal range of motion. No edema. SKIN: Warm, dry, no rash. NEURO: No focal deficits. Alert and oriented x3. PSYCH: Normal mood and affect. Course Vital Signs Vital signs: Vital Signs Temperature 36.6 C 09/12/24 11:47 Pulse Rate 100 09/12/24 11:47 Respiratory Rate 22 H 09/12/24 11:47 Blood Pressure 139/94 H 09/12/24 11:47 Pulse Oximetry 100 09/12/24 11:47 Temperature 36.6 C 09/12/24 11:47 Pulse Rate 88 09/12/24 14:07 Respiratory Rate 16 09/12/24 14:07 Blood Pressure 146/90 H 09/12/24 14:07 Pulse Oximetry 100 09/12/24 14:07 Medical Decision Making [facility] Narrative Medical decision making narrative: Differential diagnosis includes cannabis induced Hyperemesis viral induced nausea vomiting patient underwent laboratory testing and received antiemetics the patient is feeling much better after receiving a dose of Haldol and receiving a dose of Compazine. Laboratory testing was obtained on the patient which showed a CBC that had a white count of 13.3 electrolytes within normal limits Urinalysis showed no evidence UTI Patient received IV fluids antiemetics and is feeling much better. Vital Signs Vital Signs: Vital Signs Temperature 36.6 C 09/12/24 11:47 Pulse Rate 100 09/12/24 11:47 Respiratory Rate 22 H 09/12/24 11:47 Blood Pressure 139/94 H 09/12/24 11:47 Pulse Oximetry 100 09/12/24 11:47 Temperature 36.6 C 09/12/24 11:47 Pulse Rate 88 09/12/24 14:07 Respiratory Rate 16 09/12/24 14:07 Blood Pressure 146/90 H 09/12/24 14:07 Pulse Oximetry 100 09/12/24 14:07 Lab Data 09/12/24 11:48 09/12/24 11:48 Labs: Lab Results 09/12/24 09/12/24 Range/Units 11:48 14:06 WBC 13.3 H (4.5-10.0) K/mm3 RBC 5.58 (4.6-6.20) M/mm3 Hgb 15.5 (14.0-18.0) g/dL Hct 47.0 (42.0-52.0) % MCV 84.2 (80-100) fl MCH 27.8 (26-34) pg MCHC 33.0 (32-36) g/dl RDW 12.8 (11.5-14.5) % Plt Count 286 (150-375) k/mm3 MPV 10.5 H (7.4-10.4) fl Immature Gran % (Auto) 0.4 (0-0.5) % Neut % (Auto) 80.2 H (45.5-73.1) % Lymph % (Auto) 14.2 L (18.3-44.2) % [place] % (Auto) 4.4 (2.6-8.5) % Eos % (Auto) 0.6 (0-4.4) % Baso % (Auto) 0.2 (0.2-1.2) % Lymph # (Auto) 1.88 (0.9-3.2) K/mm3 [place] # (Auto) 0.6 (0.1-0.6) K/mm3 Eos # (Auto) 0.1 (0-0.3) K/mm3 Baso # (Auto) 0.0 (0.0-0.1) K/mm3 Abs Immat Gran (auto) 0.05 H (0.00-0.031) K/mm3 Absolute Neuts (auto) 10.7 H (1.3-6.7) K/mm3 Absolute Nucleated RBC 0.000 (0.0-0.012) K/mm3 Nucleated RBC % 0.0 (0.0-0.2) % Sodium 142 (137-145) mmol/L Potassium 3.8 (3.4-5.0) mmol/L Chloride 111 H (98-107) mmol/L Carbon Dioxide 19 L (22-30) mmol/L Anion Gap 12 (4-12) mmol/L BUN 11 (9-20) mg/dL Creatinine 0.67 L (0.7-1.3) mg/dL Estim Creat Clear Calc 212 ml/min Estimated GFR > 60 (59 - ) Glucose 118 H (65-110) mg/dL Calcium 9.9 (8.4-10.2) mg/dL Total Bilirubin 1.2 (0.2-1.3) mg/dL AST 29 (17-59) U/L ALT 29 (6-50) U/L Alkaline Phosphatase 94 (38-126) U/L Total Protein 8.0 (6.3-8.2) g/dL Albumin 4.8 (3.5-5.1) g/dL Lipase 41 (23-300) U/L Urine Color Yellow (Yellow) Urine Appearance Clear (Clear) Urine pH 8.5 (5.0-9.0) Ur Specific [place] 1.020 (1.001-1.035) Urine Protein Trace (Negative) mg/dL Urine Glucose (UA) Negative (Negative) mg/dL Urine Ketones Negative (Negative) mg/dL Ur Blood (Man) Negative (Negative) Urine Nitrate Negative (Negative) Urine Bilirubin Negative (Negative) Urine Urobilinogen 1.0 (<2.0) mg/dL Leukocyte Esterase Rfl Negative (Negative) LEDY/UL Urine RBC 0-2 (0-2) /hpf Urine WBC 0-5 (0-3) /hpf Ur Squamous Epith Cells None seen (Few) /hpf Urine Bacteria None seen /hpf Urine Casts 0-2 Discharge Plan Discharge Clinical Impression: Nausea and vomiting Patient Disposition: Home Condition: Stable Instructions: Antibiotic Form, Acute Nausea and Vomiting (ED) Patient Language: Turkmen Prescriptions: New promethazine 25 mg tablet 25 mg PO Q6H PRN (Reason: nausea and vomiting) Qty: 20 0RF No Action ondansetron 4 mg tablet,disintegrating 4 mg PO Q8H PRN (Reason: nausea and vomiting) Qty: 10 0RF promethazine 25 mg tablet 25 mg PO Q6H PRN (Reason: nausea and vomiting) Qty: 20 0RF Follow-up/Referrals: Esau Kaur MD [Physician] - UNKNOWN,DOCTOR [Primary Care Provider] - Time of Disposition: 15:24
[2024-09-12 14:17] LABS: Add Urine Microscopic? YES; Appearance Urine Clear (Clear); Bacteria Urine None Seen /hpf; Bilirubin Urine Negative (Negative); Blood Urine Negative (Negative); Color Urine Yellow (Yellow); Glucose Urine UA Negative (Negative); Ketones Urine Negative (Negative); Leukocyte Esterase Ur Negative LEU/UL (Negative); Nitrate Urine Negative (Negative); Non Pathogenic Casts 0-2; Protein Urine Trace mg/dL (Negative); RBC Urine 0-2 /hpf (0-2); Squamous Epithelial Cell Urine None Seen /hpf (Few); WBC Urine 0-5 /hpf (0-3); pH Urine 8.5 (5.0-9.0)
== END 2024-09-12 15:32 | disposition home or self-care (01) ==
PROVIDERS: Emergency Provider Emergency Medicine
DX: R11.2 Nausea with vomiting, unspecified (principal)
CPT/HCPCS: 36415; 80053; 81001; 83690; 85025; 96361; 96374; 96375; 99284; J0780; J1200; J1630; J7030

== ENCOUNTER 2024-11-21 07:37 | Emergency (ER) | payer OTHER, SELFPAY ==
[2024-11-21 07:40] VITALS: BP 121/85; PULSE 79; RESP 20; TEMP 36.5; O2SAT 100
--- NOTE | 2024-11-21 07:54 | ECG_ITS ---
Test Date: 2024-11-21 08:13:16 Measurements Intervals [place] Rate: 77 P: 32 NH: 138 QRS: 61 QRSD: 114 T: 21 QT: 381 QTc: 432 Interpretive Statements SINUS RHYTHM INCOMPLETE RIGHT BUNDLE BRANCH BLOCK MINIMAL Q WAVES- INF/LAT LEADS BASELINE ARTIFACT- I, II, III, AVR, AVL, AVF BORDERLINE ECG No previous ECG available for comparison Electronically Signed On 11-21-2024 08:23:56 CDT by Nile Robertson D.O.
[2024-11-21 08:24] LABS: Basophils Percent Auto 0.2 % (0.2-1.2); Eosinophils Percent Auto 0.3 % (0-4.4); Hematocrit 41.5 % (42.0-52.0); Hemoglobin 13.6 g/dL (14.0-18.0); Immature Granulocyte Absolute 0.12 K/mm3 (0.00-0.031); Immature Granulocyte Percent A 0.8 % (0-0.5); Lymphocytes Absolute Auto 1.43 K/mm3 (0.9-3.2); Lymphocytes Percent Auto 9.8 % (18.3-44.2); Mean Corpuscular HGB Conc 32.8 g/dl (32-36); Mean Corpuscular Hemoglobin 27.5 pg (26-34); Mean Corpuscular Volume 83.8 fl (80-100); Mean Platelet Volume 10.9 fl (7.4-10.4); Monocytes Absolute Auto 0.4 K/mm3 (0.1-0.6); Monocytes Percent Auto 2.7 % (2.6-8.5); Neutrophils Absolute Auto 12.6 K/mm3 (1.3-6.7); Neutrophils Percent Auto 86.2 % (45.5-73.1); Platelet Count Result 263 k/mm3 (150-375); Red Blood Count 4.95 M/mm3 (4.6-6.20); Red Cell Distribution Width 12.8 % (11.5-14.5); White Blood Count 14.6 K/mm3 (4.5-10.0)
[2024-11-21 08:34] LABS: Alanine Aminotransferase 21 U/L (6-50); Albumin Level 3.9 g/dL (3.5-5.1); Alkaline Phosphatase 75 U/L (38-126); Anion Gap 7 mmol/L (4-12); Aspartate Amino Transferase 26 U/L (17-59); Bilirubin,Total 0.7 mg/dL (0.2-1.3); Blood Urea Nitrogen 8 mg/dL (9-20); Calcium 8.9 mg/dL (8.4-10.2); Carbon Dioxide 24 mmol/L (22-30); Chloride 110 mmol/L (98-107); Estimated CRCL calculation 246 ml/min; Estimated Glomerular Filt Rate > 60; Ethanol < 10 mg/dL (<10); Glucose 131 mg/dL (65-110); Lipase 24 U/L (23-300); Potassium 3.3 mmol/L (3.4-5.0); Sodium 141 mmol/L (137-145); Total Protein 6.4 g/dL (6.3-8.2)
[2024-11-21] MEDS: HALOPERIDOL LACTATE 5 MG/ML VIAL IM (08:34)
[2024-11-21 08:38] VITALS: BP 111/78; PULSE 87; RESP 19; O2SAT 99
--- NOTE | 2024-11-21 08:46 | ED_ITS ---
HPI - General Adult General Chief complaint: Abdominal Pain Stated complaint: abd pain Time Seen by Provider: 11/21/24 07:51 History of Present Illness HPI narrative: This is a 24-year-old male history of heavy marijuana use and cannabinoid hyperemesis presenting with nausea vomiting and abdominal pain. Patient says symptoms started 48 hours ago. He has had this many times in the past. Patient says his abdominal pain is all over. I says he has been diagnosed with peptic ulcers in the past and that is what is causing his symptoms. He says hot showers of helped past but have not helped this time. Patient says that he has not smoked marijuana in 3 weeks but his UDS will be positive because it is stored in his fat and he is overweight. He denies any other drug use like opiates which she says he has not used in over a month. Related Data Allergies Allergy/AdvReac Type Severity Reaction Status Date / Time No Known Allergies Allergy Verified 11/21/24 07:47 [facility] Past Medical History Medical History Cannabinoid hyperemesis syndrome Surgical History Surgical History No pertinent past surgical history Social History Social History Alcohol intake: never Substance use: current Substance use type: marijuana Exam 2 Narrative: APPEARANCE: Patient is moving back and forth in the bed, he is speaking in a high-pitched, whimpering voice Head: atraumatic. EYES: EOMI, NOSE: Atraumatic NECK: Trachea midline RESPIRATORY: No increased rate of breathing clear to auscultation CARDIOVASCULAR: RRR, no peripheral edema ABDOMINAL: Soft, nontender no guarding or rebound. No areas of focal tenderness no CVA tenderness MUSCULOSKELETAl: No obvious deformities NEURO: Alert. Moving 4/4 extremities SKIN:: Warm, dry. Normal color PSYCHIATRIC: Patient is anxious Course Vital Signs Vital signs: Vital Signs Temperature 97.7 F 11/21/24 07:40 Pulse Rate 79 11/21/24 07:40 Respiratory Rate 20 11/21/24 07:40 Blood Pressure 121/85 11/21/24 07:40 Pulse Oximetry 100 11/21/24 07:40 Oxygen Delivery Room Air 11/21/24 07:40 Temperature 97.7 F 11/21/24 07:40 Pulse Rate 93 11/21/24 10:54 Respiratory Rate 18 11/21/24 10:54 Blood Pressure 102/65 11/21/24 10:54 Pulse Oximetry 100 11/21/24 10:54 Oxygen Delivery Room Air 11/21/24 07:40 Medical Decision Making MDM Narrative Medical decision making narrative: -Course: 24-year-old male presenting with nausea vomiting and abdominal pain. Vital signs are stable and his abdominal exam is benign. Patient has been seen in the ED multiple times for similar presentation and is consistent with cannabinoid hyperemesis. Patient received multiple rounds of anti emetics and has improved although he is not completely asymptomatic. He is able to drink water. Patient will be discharged. Primary care follow-up. -DDX includes but is not limited to: Peptic ulcer disease, Vital Signs Vital Signs: Vital Signs Temperature 97.7 F 11/21/24 07:40 Pulse Rate 79 11/21/24 07:40 Respiratory Rate 20 11/21/24 07:40 Blood Pressure 121/85 11/21/24 07:40 Pulse Oximetry 100 11/21/24 07:40 Oxygen Delivery Room Air 11/21/24 07:40 Temperature 97.7 F 11/21/24 07:40 Pulse Rate 93 11/21/24 10:54 Respiratory Rate 18 11/21/24 10:54 Blood Pressure 102/65 11/21/24 10:54 Pulse Oximetry 100 11/21/24 10:54 Oxygen Delivery Room Air 11/21/24 07:40 Lab Data 11/21/24 08:13 11/21/24 08:13 Labs: Lab Results 11/21/24 11/21/24 Range/Units 08:13 09:40 WBC 14.6 H (4.5-10.0) K/mm3 RBC 4.95 (4.6-6.20) M/mm3 Hgb 13.6 L (14.0-18.0) g/dL Hct 41.5 L (42.0-52.0) % MCV 83.8 (80-100) fl MCH 27.5 (26-34) pg MCHC 32.8 (32-36) g/dl RDW 12.8 (11.5-14.5) % Plt Count 263 (150-375) k/mm3 MPV 10.9 H (7.4-10.4) fl Immature Gran % (Auto) 0.8 H (0-0.5) % Neut % (Auto) 86.2 H (45.5-73.1) % Lymph % (Auto) 9.8 L (18.3-44.2) % [place] % (Auto) 2.7 (2.6-8.5) % Eos % (Auto) 0.3 (0-4.4) % Baso % (Auto) 0.2 (0.2-1.2) % Lymph # (Auto) 1.43 (0.9-3.2) K/mm3 [place] # (Auto) 0.4 (0.1-0.6) K/mm3 Eos # (Auto) 0.0 (0-0.3) K/mm3 Baso # (Auto) 0.0 (0.0-0.1) K/mm3 Abs Immat Gran (auto) 0.12 H (0.00-0.031) K/mm3 Absolute Neuts (auto) 12.6 H (1.3-6.7) K/mm3 Absolute Nucleated RBC 0.000 (0.0-0.012) K/mm3 Nucleated RBC % 0.0 (0.0-0.2) % Sodium 141 (137-145) mmol/L Potassium 3.3 L (3.4-5.0) mmol/L Chloride 110 H (98-107) mmol/L Carbon Dioxide 24 (22-30) mmol/L Anion Gap 7 (4-12) mmol/L BUN 8 L (9-20) mg/dL Creatinine 0.55 L (0.7-1.3) mg/dL Estim Creat Clear Calc 246 ml/min Estimated GFR > 60 (59 - ) Glucose 131 H (65-110) mg/dL Calcium 8.9 (8.4-10.2) mg/dL Total Bilirubin 0.7 (0.2-1.3) mg/dL AST 26 (17-59) U/L ALT 21 (6-50) U/L Alkaline Phosphatase 75 (38-126) U/L Total Protein 6.4 (6.3-8.2) g/dL Albumin 3.9 (3.5-5.1) g/dL Lipase 24 (23-300) U/L Urine Color Yellow (Yellow) Urine Appearance Turbid H (Clear) Urine pH >=9.0 H (5.0-9.0) Ur Specific [place] 1.016 (1.001-1.035) Urine Protein Trace (Negative) mg/dL Urine Glucose (UA) Negative (Negative) mg/dL Urine Ketones Trace H (Negative) mg/dL Ur Blood (Man) Negative (Negative) Urine Nitrate Negative (Negative) Urine Bilirubin Negative (Negative) Urine Urobilinogen 0.2 (<2.0) mg/dL Leukocyte Esterase Rfl Negative (Negative) LEDY/UL Urine RBC 0-2 (0-2) /hpf Urine WBC 0-5 (0-3) /hpf Ur Squamous Epith Cells None seen (Few) /hpf Urine Bacteria None seen /hpf Urine Casts 0-2 Urine Opiates Screen Pending Urine Methadone Screen Pending Ur Barbiturates Screen Pending Ur Phencyclidine Scrn Pending Ur Amphetamine Screen Pending U Benzodiazepines Scrn Pending Urine Cocaine Screen Pending U Cannabinoids Screen Pending Ethyl Alcohol < 10 (<10) mg/dL Discharge Plan Discharge Clinical Impression: Cannabinoid hyperemesis syndrome Patient Disposition: Home Condition: Stable Instructions: Antibiotic Form, Cannabis Use Disorder (ED) Additional Instructions: You were seen for cannabinoid hyperemesis. Please stop using marijuana and let it flush out of her system. Follow-up with your primary care physician. Return if you develop any new or worsening symptoms. Patient Language: [place] Prescriptions: New ondansetron 4 mg tablet,disintegrating 4 mg PO Q8H PRN (Reason: nausea and vomiting) Qty: 30 0RF No Action ondansetron 4 mg tablet,disintegrating 4 mg PO Q8H PRN (Reason: nausea and vomiting) Qty: 10 0RF promethazine 25 mg tablet 25 mg PO Q6H PRN (Reason: nausea and vomiting) Qty: 20 0RF promethazine 25 mg tablet 25 mg PO Q6H PRN (Reason: nausea and vomiting) Qty: 20 0RF Follow-up/Referrals: UNKNOWN,DOCTOR [Primary Care Provider] -
[2024-11-21] MEDS: SODIUM CHLORIDE 0.9% IV 2,000 ML 999 ML IV CONT (08:55)
[2024-11-21] MEDS: ONDANSETRON INJ 4 MG/2 ML VIAL IV PUSH (08:56)
[2024-11-21] MEDS: diphenhydrAMINE HCl INJ 50 MG/ML VIAL 25 MG IV PUSH (09:20)
[2024-11-21] MEDS: PROCHLORPERAZINE EDISYLATE 10 MG/2 ML VIAL IV PUSH (09:21)
[2024-11-21] MEDS: FAMOTIDINE 20 MG/2 ML VIAL IV PUSH (09:21)
[2024-11-21 09:59] LABS: Add Urine Microscopic? YES; Appearance Urine Turbid (Clear); Bacteria Urine None Seen /hpf; Bilirubin Urine Negative (Negative); Blood Urine Negative (Negative); Color Urine Yellow (Yellow); Glucose Urine UA Negative (Negative); Ketones Urine Trace mg/dL (Negative); Leukocyte Esterase Ur Negative LEU/UL (Negative); Nitrate Urine Negative (Negative); Non Pathogenic Casts 0-2; Protein Urine Trace mg/dL (Negative); RBC Urine 0-2 /hpf (0-2); Specific Grav Ur 1.016 (1.001-1.035); Squamous Epithelial Cell Urine None Seen /hpf (Few); Urobilinogen Urine 0.2 mg/dL (<2.0); WBC Urine 0-5 /hpf (0-3); pH Urine >=9.0 (5.0-9.0)
[2024-11-21] MEDS: HALOPERIDOL LACTATE 5 MG/ML VIAL IV PUSH (10:51)
[2024-11-21 10:54] VITALS: BP 102/65; PULSE 93; RESP 18; O2SAT 100
[2024-11-21 11:49] VITALS: BP 115/77; PULSE 86; RESP 18; O2SAT 98
[2024-11-21 11:49] LABS: Amphetamine Screen Urine Negative (Negative); Barbiturate Screen Urine Negative (Negative); Benzodiazepines Screen Urine Negative (Negative); Cannabinoid Screen Urine Positive (Negative); Cocaine Screen Urine Negative (Negative); Methadone Screen Urine Negative (Negative); Opiate Screen Urine Negative (Negative); Phencyclidine Screen Urine Negative (Negative)
== END 2024-11-21 11:50 | disposition home or self-care (01) ==
PROVIDERS: Emergency Provider Emergency Medicine
DX: R11.10 Vomiting, unspecified (principal); F12.90 Cannabis use, unspecified, uncomplicated
CPT/HCPCS: 36415; 80053; 80307; 81001; 82077; 83690; 85025; 93005; 96361; 96372; 96374; 96375; 99284; J0780; J1200; J1630; J2405; J7030